=== PATIENT | male | born 1970 | race African-American/Black ===

== ENCOUNTER → 2020-04-28 13:18 | Outpatient (BNVA) | payer MEDICAID, SELFPAY | PROVIDERS: PCP Internal Medicine; Visit Provider Urology | DX: E29.1 Testicular hypofunction (principal); N39.41 Urge incontinence | CPT/HCPCS: 96372; 99212 ==

== ENCOUNTER → 2020-05-15 08:55 | Outpatient (BNVA) | payer MEDICAID, SELFPAY | PROVIDERS: PCP Internal Medicine; Referring Provider Internal Medicine; Visit Provider Urology | DX: E29.1 Testicular hypofunction (principal) | CPT/HCPCS: 99203 ==

== ENCOUNTER → 2020-05-30 09:50 | Outpatient (BNVA) | payer MEDICAID, SELFPAY | PROVIDERS: PCP Internal Medicine; Visit Provider Urology | DX: E29.1 Testicular hypofunction (principal) | CPT/HCPCS: 99212 ==

== ENCOUNTER 2020-06-01 09:43 | Outpatient (REF) | payer MEDICAID, SELFPAY ==
[2020-06-01 12:03] LABS: Blood Urea Nitrogen 9 mg/dL (9-16); Calcium 9.3 mg/dL (8.4-10.2); Estimated Glomerular Filt Rate > 60; Glucose Random 160 mg/dL (60-115)
[2020-06-01 12:20] LABS: Anion Gap 11 (12-20); Carbon Dioxide 31 mmol/L (22-29); Chloride 99 mmol/L (96-108); Potassium 5.4 mmol/l (3.3-5.1); Sodium 136 mmol/L (135-145)
== END 2020-06-01 09:44 | disposition home or self-care (01) ==
LOC: HO.LAB 09:43
PROVIDERS: Visit Provider Internal Medicine
DX: I10 Essential (primary) hypertension (principal)
CPT/HCPCS: 80048

== ENCOUNTER 2020-06-09 14:19 | Outpatient (REF) | payer MEDICAID, SELFPAY | END 2020-06-09 14:20 | disposition home or self-care (01) | LOC: HO.LAB 14:19 | PROVIDERS: Visit Provider Internal Medicine | DX: Z20.828 Contact with and (suspected) exposure to other viral communicable diseases (principal) | CPT/HCPCS: C9803; U0003 ==

== ENCOUNTER → 2020-06-13 09:28 | Outpatient (BNVA) | payer MEDICAID, SELFPAY | PROVIDERS: PCP Internal Medicine; Referring Provider Internal Medicine; Visit Provider Urology | DX: Z76.89 Persons encountering health services in other specified circumstances (principal) | CPT/HCPCS: 99212 ==

== ENCOUNTER → 2020-06-27 15:03 | Outpatient (BNVA) | payer MEDICAID, SELFPAY | PROVIDERS: PCP Internal Medicine; Referring Provider Internal Medicine; Visit Provider Urology | DX: E29.1 Testicular hypofunction (principal) | CPT/HCPCS: 20552; 96372; 99212 ==

== ENCOUNTER → 2020-07-11 13:26 | Outpatient (BNVA) | payer MEDICAID, SELFPAY | PROVIDERS: PCP Internal Medicine; Visit Provider Urology | DX: E29.1 Testicular hypofunction (principal) | CPT/HCPCS: 96372; 99212 ==

== ENCOUNTER 2020-07-18 09:50 | Outpatient (REF) | payer MEDICAID, SELFPAY ==
[2020-07-23 21:58] LABS: Testosterone, Total 934 ng/dL (250-1100)
== END 2020-07-18 09:51 | disposition home or self-care (01) ==
LOC: HO.LAB 09:50
PROVIDERS: PCP Internal Medicine; Visit Provider Urology
DX: E29.1 Testicular hypofunction (principal); R68.82 Decreased libido
CPT/HCPCS: 84403

== ENCOUNTER → 2020-07-19 12:05 | Outpatient (BNVA) | payer MEDICAID, SELFPAY | PROVIDERS: PCP Internal Medicine; Visit Provider Internal Medicine | DX: I25.10 Atherosclerotic heart disease of native coronary artery without angina pectoris (principal); I10 Essential (primary) hypertension; E78.5 Hyperlipidemia, unspecified; R94.5 Abnormal results of liver function studies; E11.9 Type 2 diabetes mellitus without complications | CPT/HCPCS: 93005; 99212 ==

== ENCOUNTER → 2020-07-26 12:22 | Outpatient (BNVA) | payer MEDICAID, SELFPAY | PROVIDERS: PCP Internal Medicine; Visit Provider Urology | DX: E29.1 Testicular hypofunction (principal); R68.82 Decreased libido | CPT/HCPCS: 96372; 99212 ==

== ENCOUNTER 2020-08-04 08:41 | Outpatient (REF) | payer MEDICAID, SELFPAY ==
[2020-08-07 13:03] LABS: Alpha Fetoprotein 12.8 ng/mL (<6.1)
== END 2020-08-04 08:42 | disposition home or self-care (01) ==
LOC: HO.LAB 08:41
PROVIDERS: PCP Internal Medicine; Visit Provider Nurse Practitioner
DX: K75.81 Nonalcoholic steatohepatitis (NASH) (principal)
CPT/HCPCS: 36415; 82105

== ENCOUNTER → 2020-08-10 10:16 | Outpatient (BNVA) | payer MEDICAID, SELFPAY | PROVIDERS: PCP Internal Medicine; Visit Provider Urology | DX: R68.82 Decreased libido (principal); E29.1 Testicular hypofunction; I10 Essential (primary) hypertension; Z87.891 Personal history of nicotine dependence | CPT/HCPCS: 96372; 99212 ==

== ENCOUNTER → 2020-08-25 09:54 | Outpatient (BNVA) | payer MEDICAID, SELFPAY | PROVIDERS: PCP Internal Medicine; Visit Provider Urology | DX: E29.1 Testicular hypofunction (principal); R68.82 Decreased libido | CPT/HCPCS: 96372; 99212 ==

== ENCOUNTER 2020-08-28 12:39 | Outpatient (REF) | payer MEDICAID, SELFPAY ==
[2020-08-28 14:55] LABS: Alanine Aminotransferase 31 U/L (0-40); Albumin Level 4.6 g/dL (3.5-5.0); Alkaline Phosphatase 73 U/L (39-117); Anion Gap 12 (12-20); Aspartate Amino Transferase 23 U/L (5-37); Bilirubin Total 0.9 mg/dL (0.0-1.0); Blood Urea Nitrogen 9 mg/dL (9-16); Calcium 9.5 mg/dL (8.4-10.2); Carbon Dioxide 31 mmol/L (22-29); Chloride 99 mmol/L (96-108); Estimated Glomerular Filt Rate > 60; Glucose Random 108 mg/dL (60-115); Potassium 4.5 mmol/L (3.3-5.1); Sodium 137 mmol/L (135-145); Total Protein 7.1 g/dL (6.5-8.0)
[2020-08-29 12:17] LABS: Alpha Fetoprotein 13.9 ng/mL (<6.1)
== END 2020-08-28 12:40 | disposition home or self-care (01) ==
LOC: HO.LAB 12:39
PROVIDERS: PCP Internal Medicine; Visit Provider Nurse Practitioner
DX: K75.81 Nonalcoholic steatohepatitis (NASH) (principal); K21.00 Gastro-esophageal reflux disease with esophagitis, without bleeding; K58.0 Irritable bowel syndrome with diarrhea; K64.0 First degree hemorrhoids; E11.8 Type 2 diabetes mellitus with unspecified complications; R77.2 Abnormality of alphafetoprotein; Z86.010 Personal history of colon polyps
CPT/HCPCS: 36415; 80053; 82105

== ENCOUNTER → 2020-09-08 08:33 | Outpatient (BNVA) | payer MEDICAID, SELFPAY | PROVIDERS: PCP Internal Medicine; Visit Provider Urology | DX: E29.1 Testicular hypofunction (principal) | CPT/HCPCS: 96372; 99212 ==

== ENCOUNTER 2020-09-20 08:23 | Outpatient (REF) | payer MEDICAID, SELFPAY ==
--- NOTE | ~2020-09-20 | US_ITS ---
EXAMINATION: US ABDOMEN COMPLETE CLINICAL INFORMATION: Nonalcoholic steatohepatitis. COMPARISON: Ultrasound abdomen complete 03/06/2020 and 08/02/2019. MRI abdomen 02/18/2019. CT abdomen and pelvis 03/28/2018. TECHNIQUE: Real-time imaging of the abdominal viscera. FINDINGS: PANCREAS: The head of the pancreas and partially visualized body of the pancreas is homogeneous in texture. Rest of the pancreas is not seen well. ABDOMINAL AORTA: The proximal, mid, and distal segments are normal in caliber. INFERIOR VENA CAVA: Visualized portions are normal. LIVER: The liver is normal in size. The liver contour is normal. There is increased liver echogenicity with focal fatty sparing. No focal hepatic lesion. There is no intrahepatic biliary duct dilatation seen. GALLBLADDER: Normal. The gallbladder is physiologically distended without evidence of stones, sludge, polyps, wall thickening, or pericholecystic fluid. COMMON BILE DUCT: Normal in caliber measuring 0.4 cm in diameter. RIGHT KIDNEY: Normal. No hydronephrosis. No renal calculi or focal parenchymal lesions. The kidney measures 11.3 cm in maximum dimension. LEFT KIDNEY: Normal. No hydronephrosis. No renal calculi or focal parenchymal lesions. The kidney measures 10.3 cm in maximum dimension. SPLEEN: Normal. The spleen measures 11.0 cm in maximum dimension. FREE FLUID: None. US/US abdomen complete IMPRESSION: Diffuse hepatic steatosis with focal fatty sparing. No focal lesion seen. Rest of the ultrasound abdomen is unremarkable.
== END 2020-09-20 08:24 | disposition home or self-care (01) ==
LOC: HO.US 08:23
PROVIDERS: PCP Internal Medicine; Visit Provider Nurse Practitioner
DX: K75.81 Nonalcoholic steatohepatitis (NASH) (principal)
CPT/HCPCS: 76700

== ENCOUNTER → 2020-09-22 08:33 | Outpatient (BNVA) | payer MEDICAID, SELFPAY | PROVIDERS: PCP Internal Medicine; Visit Provider Urology | DX: E29.1 Testicular hypofunction (principal) | CPT/HCPCS: 96372; 99212 ==

== ENCOUNTER → 2020-10-06 08:26 | Outpatient (BNVA) | payer MEDICAID, SELFPAY | PROVIDERS: PCP Internal Medicine; Visit Provider Urology | DX: E29.1 Testicular hypofunction (principal) | CPT/HCPCS: 96372; 99212 ==

== ENCOUNTER → 2020-10-24 08:17 | Outpatient (BNVA) | payer MEDICAID, SELFPAY | PROVIDERS: PCP Internal Medicine; Visit Provider Urology | DX: E29.1 Testicular hypofunction (principal) | CPT/HCPCS: 96372; 99212 ==

== ENCOUNTER → 2020-11-07 08:33 | Outpatient (BNVA) | payer MEDICAID, SELFPAY | PROVIDERS: PCP Internal Medicine; Visit Provider Urology | DX: E29.1 Testicular hypofunction (principal) | CPT/HCPCS: 96372; 99212 ==

== ENCOUNTER → 2021-02-21 12:41 | Outpatient (BNVA) | payer MEDICAID, SELFPAY | PROVIDERS: PCP Internal Medicine; Referring Provider Internal Medicine; Visit Provider Internal Medicine | DX: I25.10 Atherosclerotic heart disease of native coronary artery without angina pectoris (principal); I10 Essential (primary) hypertension; E78.5 Hyperlipidemia, unspecified; E11.8 Type 2 diabetes mellitus with unspecified complications; R94.5 Abnormal results of liver function studies | CPT/HCPCS: 99212 ==

== ENCOUNTER 2021-02-26 12:20 | Outpatient (REF) | payer MEDICAID, SELFPAY ==
[2021-02-26 14:20] LABS: MANUAL DIFF FLAG NO
[2021-02-26 14:22] LABS: Basophils Percent Auto 0.4 % (0-2); Eosinophils Absolute Auto 0.2 X10*3/uL (0.0-0.4); Eosinophils Percent Auto 2.3 % (0-4); Hematocrit 47.8 % (42-52); Hemoglobin 16.3 g/dl (14.0-18.0); Imm Gran Abs Auto 0.04 X10*3/uL (0.00-0.03); Imm Gran Pct Auto 0.6 % (0.0-0.4); Lymphocytes Absolute Auto 1.6 X10*3/uL (1.2-4.9); Lymphocytes Percent Auto 23.2 % (20-40); Mean Corpuscular HGB Conc 34.1 g/dl (31.0-36.0); Mean Corpuscular Hemoglobin 30.1 pg (27.0-33.0); Mean Corpuscular Volume 88.4 fL (80-98); Mean Platelet Volume 10.8 fL (9.4-12.4); Monocytes Absolute Auto 0.7 X10*3/uL (0.1-1.2); Monocytes Percent Auto 9.2 % (2-11); Neutrophils Absolute Auto 4.5 X10*3/uL (2.0-8.3); Neutrophils Percent Auto 64.3 % (45-73); Platelet Count 268 X10*3/uL (160-400); Red Blood Count 5.41 X10*6/uL (4.60-5.80); Red Cell Distribution Width 12.9 % (11.0-16.0)
[2021-02-26 14:51] LABS: Alanine Aminotransferase 39 U/L (0-40); Albumin Level 4.5 g/dL (3.5-5.0); Alkaline Phosphatase 77 U/L (39-117); Anion Gap 10 (12-20); Aspartate Amino Transferase 19 U/L (5-37); Bilirubin Total 0.8 mg/dL (0.0-1.0); Blood Urea Nitrogen 9 mg/dL (9-16); Calcium 10.3 mg/dL (8.4-10.2); Carbon Dioxide 33 mmol/L (22-29); Chloride 99 mmol/L (96-108); Estimated Glomerular Filt Rate > 60; Glucose Random 266 mg/dL (60-115); Potassium 5.3 mmol/L (3.3-5.1); Sodium 137 mmol/L (135-145)
[2021-02-28 10:47] LABS: Alpha Fetoprotein 12.9 ng/mL (<6.1)
== END 2021-02-26 12:21 | disposition home or self-care (01) ==
LOC: HO.LAB 12:20
PROVIDERS: PCP Internal Medicine; Referring Provider Internal Medicine; Visit Provider Nurse Practitioner
DX: D21.6 Benign neoplasm of connective and other soft tissue of trunk, unspecified (principal); R77.2 Abnormality of alphafetoprotein; K64.9 Unspecified hemorrhoids; K58.0 Irritable bowel syndrome with diarrhea; K75.81 Nonalcoholic steatohepatitis (NASH); K21.9 Gastro-esophageal reflux disease without esophagitis; K22.4 Dyskinesia of esophagus
CPT/HCPCS: 36415; 80053; 82105; 85025; 99212

== ENCOUNTER → 2021-03-15 07:25 | Outpatient (REF) | payer MEDICAID, SELFPAY ==
--- NOTE | 2021-03-15 | ECG_ITS ---
Test Reason : QTC CHECK Blood Pressure : / mmHG Vent. Rate : 063 BPM Atrial Rate : 063 BPM P-R Int : 148 ms QRS Dur : 096 ms QT Int : 412 ms P-R-T Axes : 033 -12 013 degrees QTc Int : 421 ms Normal sinus rhythm Moderate voltage criteria for LVH, may be normal variant Borderline ECG When compared with ECG of 04-DEC-2017 06:56, No significant change was found Referred By: Gloria Combs Electronically Signed By:LUISITO HERNANDEZ
[2021-03-15 09:02] LABS: MANUAL DIFF FLAG NO
[2021-03-15 09:05] LABS: Basophils Percent Auto 0.3 % (0-2); Eosinophils Absolute Auto 0.2 X10*3/uL (0.0-0.4); Eosinophils Percent Auto 2.2 % (0-4); Hematocrit 48.2 % (42-52); Hemoglobin 16.2 g/dl (14.0-18.0); Imm Gran Abs Auto 0.04 X10*3/uL (0.00-0.03); Imm Gran Pct Auto 0.6 % (0.0-0.4); Lymphocytes Absolute Auto 1.8 X10*3/uL (1.2-4.9); Lymphocytes Percent Auto 26.1 % (20-40); Mean Corpuscular HGB Conc 33.6 g/dl (31.0-36.0); Mean Corpuscular Hemoglobin 29.9 pg (27.0-33.0); Mean Corpuscular Volume 88.9 fL (80-98); Mean Platelet Volume 11.1 fL (9.4-12.4); Monocytes Absolute Auto 0.7 X10*3/uL (0.1-1.2); Monocytes Percent Auto 9.9 % (2-11); Neutrophils Absolute Auto 4.2 X10*3/uL (2.0-8.3); Neutrophils Percent Auto 60.9 % (45-73); Platelet Count 244 X10*3/uL (160-400); Red Blood Count 5.42 X10*6/uL (4.60-5.80)
[2021-03-15 09:23] LABS: Estimated Average Glucose 166 mg/dL; Hemoglobin A1c % 7.4 %
[2021-03-15 09:34] LABS: Alanine Aminotransferase 38 U/L (0-40); Albumin Level 4.3 g/dL (3.5-5.0); Alkaline Phosphatase 86 U/L (39-117); Anion Gap 11 (12-20); Aspartate Amino Transferase 19 U/L (5-37); Bilirubin Total 0.6 mg/dL (0.0-1.0); Blood Urea Nitrogen 10 mg/dL (9-16); Calcium 9.6 mg/dL (8.4-10.2); Carbon Dioxide 31 mmol/L (22-29); Chloride 100 mmol/L (96-108); Cholesterol 89 mg/dL; Estimated Glomerular Filt Rate > 60; Glucose Random 173 mg/dL (60-115); HDL Cholesterol 36 mg/dL; LDL Cholesterol Calculated 37 mg/dl; Potassium 4.4 mmol/L (3.3-5.1); Sodium 138 mmol/L (135-145); Total Protein 6.7 g/dL (6.5-8.0); Triglycerides 80 mg/dL
[2021-03-15 09:50] LABS: Thyroid Stimulating Hormone 3.33 uIU/mL (0.32-4.0)
== END ==
LOC: HO.CARD 07:25
PROVIDERS: PCP Internal Medicine; Visit Provider Psychiatry & Neurology Psychiatry
DX: Z79.899 Other long term (current) drug therapy (principal)
CPT/HCPCS: 36415; 80053; 80061; 83036; 84443; 85025; 93005

== ENCOUNTER 2021-04-27 07:35 | Outpatient (REF) | payer MEDICAID, SELFPAY ==
[2021-04-27 08:23] LABS: Hematocrit 47.5 % (42-52); Hemoglobin 16.5 g/dl (14.0-18.0); Mean Corpuscular HGB Conc 34.7 g/dl (31.0-36.0); Mean Corpuscular Hemoglobin 30.1 pg (27.0-33.0); Mean Corpuscular Volume 86.7 fL (80-98); Mean Platelet Volume 10.7 fL (9.4-12.4); Platelet Count 270 X10*3/uL (160-400); Red Blood Count 5.48 X10*6/uL (4.60-5.80); Red Cell Distribution Width 12.5 % (11.0-16.0); White Blood Count 7.9 X10*3/uL (4.8-10.8)
[2021-04-27 09:18] LABS: Prostate Specific Antigen 0.74 ng/mL (<0.05-4.0)
[2021-05-02 11:51] LABS: Testosterone, Total 604 ng/dL (250-1100)
== END 2021-04-27 07:36 | disposition home or self-care (01) ==
LOC: HO.LAB 07:35
PROVIDERS: PCP Internal Medicine; Visit Provider Urology
DX: Z12.5 Encounter for screening for malignant neoplasm of prostate (principal); N40.1 Benign prostatic hyperplasia with lower urinary tract symptoms; N13.8 Other obstructive and reflux uropathy; E29.1 Testicular hypofunction
CPT/HCPCS: 36415; 84153; 84403; 85027

== ENCOUNTER 2021-05-09 07:12 | Outpatient (REF) | payer MEDICAID, SELFPAY ==
--- NOTE | ~2021-05-09 | US_ITS ---
EXAMINATION: US ABDOMEN COMPLETE CLINICAL INFORMATION: Abnormality of alpha-fetoprotein. COMPARISON: Ultrasound abdomen 09/20/2020. TECHNIQUE: Real-time imaging of the abdominal viscera. FINDINGS: PANCREAS: The pancreas is obscured by overlying gas. ABDOMINAL AORTA: The proximal, mid, and distal segments are normal in caliber. INFERIOR VENA CAVA: Visualized portions are normal. LIVER: The liver is normal in size. The liver contour is normal. The liver is diffusely increased in echogenicity and heterogeneous. No focal hepatic lesion. There is no intrahepatic biliary duct dilatation seen. GALLBLADDER: Normal. The gallbladder is physiologically distended without evidence of stones, sludge, polyps, wall thickening or pericholecystic fluid. COMMON BILE DUCT: Normal in caliber measuring 0.41 cm in diameter. RIGHT KIDNEY: Normal. No hydronephrosis. No renal calculi or focal parenchymal lesions. The kidney measures 11.4 cm in maximum dimension. LEFT KIDNEY: Normal. No hydronephrosis. No renal calculi or focal parenchymal lesions. The kidney measures 11.7 cm in maximum dimension. SPLEEN: Normal. The spleen measures 10.1 cm in maximum dimension. FREE FLUID: None. US/US abdomen complete IMPRESSION: Diffusely increased echogenic heterogeneous liver. No focal lesion. The rest of the abdominal ultrasound is unremarkable.
== END 2021-05-09 07:13 | disposition home or self-care (01) ==
LOC: HO.US 07:12
PROVIDERS: PCP Internal Medicine; Visit Provider Nurse Practitioner
DX: R77.2 Abnormality of alphafetoprotein (principal); D12.6 Benign neoplasm of colon, unspecified; K75.81 Nonalcoholic steatohepatitis (NASH)
CPT/HCPCS: 76700

== ENCOUNTER → 2021-05-11 08:38 | Outpatient (BNVA) | payer MEDICAID, SELFPAY | PROVIDERS: PCP Internal Medicine; Visit Provider Urology ==

== ENCOUNTER 2021-05-22 09:08 | Day surgery (SDC) | payer MEDICAID, SELFPAY ==
[2021-05-16 11:01] VITALS: BMI 28.4
--- NOTE | 2021-05-21 13:33 | HO.ANESPROP2 ---
Documented by User: Morelia Xiao NP 05/21/21 13:38 HPI - Anesthesia Eval Consult details Narrative: 50yo M for Colonoscopy Plavix for CAD Per routine cardiac OV 02/2021: History of cardiac catheterization/stenting of distal left main into proximal LAD from 2017; proximal circumflex and ostial LAD stents 2017. Last stress perfusion imaging study from 2018 without any ischemia or infarction.? Study again repeated in 2019 without any new findings.? Continue medical therapy for stable CAD.? [facility] Active Problems Active Problems: All Active Problems (Updated 05/16/21 @ 09:50 by Yenifer Judd RN) Hypogonadism (Acute) Urge incontinence (Acute) GERD (gastroesophageal reflux disease) (Acute) COLON (nonalcoholic steatohepatitis) (Acute) Irritable bowel syndrome with diarrhea (Acute) Hemorrhoids (Acute) Tubular adenoma of colon (Acute) Esophageal dysmotility (Acute) Elevated AFP (Acute) Decreased libido (Acute) Type 2 diabetes mellitus with unspecified complications (Acute) Abnormal LFTs (Acute) Other and unspecified hyperlipidemia (Acute) Essential hypertension (Acute) Atherosclerotic cardiovascular disease (Acute) Hypogonadism in male (Acute) Past Medical History Medical History (Updated 05/16/21 @ 09:50 by Yenifer Judd RN) Abnormal LFTs Allergic rhinitis Anxiety Atherosclerotic cardiovascular disease BPH (benign prostatic hyperplasia) Decreased libido Elevated AFP Essential hypertension Hypogonadism in male Hypothyroid IBS (irritable bowel syndrome) COLON (nonalcoholic steatohepatitis) On beta catherine at home Other and unspecified hyperlipidemia Type 2 diabetes mellitus with unspecified complications Family History Family History Father Cardiac disease Mother Cardiac disease Surgical History Surgical History (Updated 05/16/21 @ 09:51 by Yenifer Judd RN) History of cardiac cath History of cardiac cath History of cardiac cath History of esophagogastroduodenoscopy (EGD) Hx of colonoscopy Social History Social History (Updated 05/11/21 @ 08:44 by Susanne Lei CMA) Are you a primary chronic care nurse to a significant other at home: No Do you presently have visiting nurse or other home services: No Alcohol intake: former Patient Tobacco Use Status: Former Tobacco user Quit Date: 3 yrs ago Tobacco use type: Cigarette Use of substances other than those prescribed or required for medical reasons: No Have you been hit, kicked, punched, or otherwise hurt by someone within the past year? If so, by whom?: No Are you DNR?: No Advance Directives: No Advance Directives Information Provided: No Advance Directives on File: No Recently lost weight without trying: No Eating poorly because of decreased appetite: No Nutrition Risks: No Nutritional Risk Meds Allergies Allergy/AdvReac Type Severity Reaction Status Date / Time No Known Allergies Allergy Verified 05/15/21 15:44 [No Known Allergies*] Home Medications Medication Instructions Recorded Confirmed Last Taken Type aspirin 81 mg tablet,delayed 81 mg PO DAILY 07/19/20 05/16/21 05/21/21 History release (Adult Low Dose Aspirin) cholecalciferol (vitamin D3) 25 25 mcg PO DAILY 07/19/20 05/16/21 Unknown History mcg (1,000 unit) capsule clopidogrel 75 mg tablet 75 mg PO DAILY 07/19/20 05/16/21 05/16/21 History cyclobenzaprine 5 mg tablet 5 mg PO TID PRN 07/19/20 05/16/21 Unknown History gabapentin 300 mg capsule 300 mg PO TID 07/19/20 05/16/21 Unknown History glipizide 2.5 mg tablet, extended 2.5 mg PO DAILY 07/19/20 05/16/21 Unknown History release 24 hr ibuprofen 600 mg tablet 600 mg PO Q6H PRN 07/19/20 05/16/21 Unknown History levothyroxine 25 mcg capsule 25 mcg PO DAILY 07/19/20 05/16/21 05/22/21 History metformin 1,000 mg tablet 1,000 mg PO BID 07/19/20 05/16/21 Unknown History metoprolol succinate 50 mg 50 mg PO DAILY 07/19/20 05/16/21 05/22/21 History tablet,extended release 24 hr nitroglycerin 0.4 mg sublingual 0.4 mg SUBLINGUAL Q5M PRN 07/19/20 05/16/21 Unknown History tablet risperidone 2 mg tablet 2 mg PO DAILY 07/19/20 05/16/21 Unknown History risperidone 4 mg tablet 4 mg PO BEDTIME 07/19/20 05/16/21 Unknown History sertraline 100 mg tablet 100 mg PO DAILY 07/19/20 05/16/21 05/22/21 History lorazepam 2 mg tablet 2 mg PO DAILY PRN 05/11/21 05/16/21 Unknown History hydroxyzine HCl 50 mg tablet 1 tab PO BEDTIME PRN 05/16/21 05/16/21 Unknown History sertraline 50 mg tablet 1 tab PO 1200 05/16/21 05/16/21 Unknown History Exam Exam Date and Time: May 21, 2021 1333 Height,Weight and Vital Signs: Height 5 ft 6 in Weight 79.832 kg Pertinent Lab Results Pertinent Lab Results: Laboratory Tests 03/15/21 04/27/21 07:32 07:47 WBC 7.9 Hgb 16.5 Hct 47.5 Plt Count 270 Sodium 138 Potassium 4.4 Chloride 100 Carbon Dioxide 31 H BUN 10 Creatinine 1.04 Narrative Narrative: EKG 02/2021 Vent. Rate : 063 BPM ? ? Atrial Rate : 063 BPM ?? P-R Int : 148 ms? QRS Dur : 096 ms ? ? QT Int : 412 ms ? ? ? P-R-T Axes : 033 -12 013 degrees ?? QTc Int : 421 ms ? Normal sinus rhythm Moderate voltage criteria for LVH, may be normal variant Borderline ECG When compared with ECG of 04-DEC-2017 06:56, No significant change was found Assessment and Plan Assessment Anesthesia Assessment: Chart Reviewed Documented by User: Sylvia Brown MD 05/22/21 10:56 [facility] Past Medical History Medical History (Updated 05/16/21 @ 09:50 by Yenifer Judd, VANE) Abnormal LFTs Allergic rhinitis Anxiety Atherosclerotic cardiovascular disease BPH (benign prostatic hyperplasia) Decreased libido Elevated AFP Essential hypertension Hypogonadism in male Hypothyroid IBS (irritable bowel syndrome) COLON (nonalcoholic steatohepatitis) On beta catherine at home Other and unspecified hyperlipidemia Type 2 diabetes mellitus with unspecified complications Family History Family History Father Cardiac disease Mother Cardiac disease Surgical History Surgical History (Updated 05/16/21 @ 09:51 by Yenifer Judd RN) History of cardiac cath History of cardiac cath History of cardiac cath History of esophagogastroduodenoscopy (EGD) Hx of colonoscopy Social History Social History (Updated 05/11/21 @ 08:44 by Susanne Lei CMA) Are you a primary chronic care nurse to a significant other at home: No Do you presently have visiting nurse or other home services: No Alcohol intake: former Patient Tobacco Use Status: Former Tobacco user Quit Date: 3 yrs ago Tobacco use type: Cigarette Use of substances other than those prescribed or required for medical reasons: No Have you been hit, kicked, punched, or otherwise hurt by someone within the past year? If so, by whom?: No Are you DNR?: No Advance Directives: No Advance Directives Information Provided: No Advance Directives on File: No Recently lost weight without trying: No Eating poorly because of decreased appetite: No Nutrition Risks: No Nutritional Risk Meds Allergies Allergy/AdvReac Type Severity Reaction Status Date / Time No Known Allergies Allergy Verified 05/15/21 15:44 [No Known Allergies*] Home Medications Medication Instructions Recorded Confirmed Last Taken Type aspirin 81 mg tablet,delayed 81 mg PO DAILY 07/19/20 05/16/21 05/21/21 History release (Adult Low Dose Aspirin) cholecalciferol (vitamin D3) 25 25 mcg PO DAILY 07/19/20 05/16/21 Unknown History mcg (1,000 unit) capsule clopidogrel 75 mg tablet 75 mg PO DAILY 07/19/20 05/16/21 05/16/21 History cyclobenzaprine 5 mg tablet 5 mg PO TID PRN 07/19/20 05/16/21 Unknown History gabapentin 300 mg capsule 300 mg PO TID 07/19/20 05/16/21 Unknown History glipizide 2.5 mg tablet, extended 2.5 mg PO DAILY 07/19/20 05/16/21 Unknown History release 24 hr ibuprofen 600 mg tablet 600 mg PO Q6H PRN 07/19/20 05/16/21 Unknown History levothyroxine 25 mcg capsule 25 mcg PO DAILY 07/19/20 05/16/21 05/22/21 History metformin 1,000 mg tablet 1,000 mg PO BID 07/19/20 05/16/21 Unknown History metoprolol succinate 50 mg 50 mg PO DAILY 07/19/20 05/16/21 05/22/21 History tablet,extended release 24 hr nitroglycerin 0.4 mg sublingual 0.4 mg SUBLINGUAL Q5M PRN 07/19/20 05/16/21 Unknown History tablet risperidone 2 mg tablet 2 mg PO DAILY 07/19/20 05/16/21 Unknown History risperidone 4 mg tablet 4 mg PO BEDTIME 07/19/20 05/16/21 Unknown History sertraline 100 mg tablet 100 mg PO DAILY 07/19/20 05/16/21 05/22/21 History lorazepam 2 mg tablet 2 mg PO DAILY PRN 05/11/21 05/16/21 Unknown History hydroxyzine HCl 50 mg tablet 1 tab PO BEDTIME PRN 05/16/21 05/16/21 Unknown History sertraline 50 mg tablet 1 tab PO 1200 05/16/21 05/16/21 Unknown History Exam Airway Mallampati Class: II TM Dist: >3cm Neck ROM: Full
[2021-05-22 10:30] VITALS: BP 133/82; PULSE 56; RESP 16; TEMP 36.8; O2SAT 99
[2021-05-22 10:47] LABS: Glucose, Whole Blood 157 mg/dL (60-115)
[2021-05-22] MEDS: Lactated Ringers 1,000 ML 100 ML IVCONT (10:51)
--- NOTE | 2021-05-22 10:56 | MHC.SHP ---
Pre-Procedural Eval Section A Date of Service: 05/22/21 The patient is an INPATIENT: No The History & Physical has been completed within 30 days and I have reviewed it.: No Section B Chief Complaint: IBS w/ Diarrhea Relevant Family History (Specify if Yes): No Relevant Social History: Tobacco Use (former smoker) Present Medications: see Short Stay Collaborative assessment Medical History: Significant History (Abnormal LFTs Atherosclerotic cardiovascular disease Decreased libido Elevated AFP Essential hypertension Hypogonadism in male Other and unspecified hyperlipidemia Type 2 diabetes mellitus with unspecified complications) History of Previous Operations: Relevant previous surgery/procedure and date(s) (History of cardiac cath) Allergies: Allergies Allergy/AdvReac Type Severity Reaction Status Date / Time No Known Allergies Allergy Verified 05/15/21 15:44 [No Known Allergies*] Review of Systems Sugical H&P ROS: Negative: Constitution, Cardiovascular, Respiratory and Gastrointestinal Exam Surgical H&P Exam: Normal: Heart, Normal: Lungs, Normal: Extremities and Normal: Abdomen Plan Diagnosis/Plan: Unchanged I have reviewed the history and physical and performed a pertinent physical examination on my patient. No changes have occurred unless specified.
--- NOTE | 2021-05-22 13:13 | PM.OP ---
Brief Operative Note Date of Service: 05/22/21 Pre-op diagnosis: Colon cancer screening, history of colon polyps Post-op diagnosis: other (Colon polyps, diverticulosis, hemorrhoids, prominent rectal folds) Procedure: COLONOSCOPY TILL CECUM WITH BIOPSIES Consent: Indications for the procedure and potential complications of bleeding, perforation, reaction to medications and missed diagnosis were discussed with the patient and informed consent was obtained. Instrument: Olympus PCF H 190 L variable stiffness pediatric colonoscope Monitoring: Vital signs and clinical assessment, intermittent blood pressure monitoring, continuous EKG monitoring, Pulse oximetry and Carbon Dioxide monitoring were done throughout the procedure. Colon withdrawl time was 23 minutes. Procedure: The patient was placed in the left lateral decubitis position and pre-procedure medications were administered. After a digital rectal examination of the ano-rectum, the video colonoscope was inserted into the rectum and advanced through the colon to the cecum. The colonoscope was slowly withdrawn in a retrograde panoramic fashion and the colon mucosa was carefully examined including a retroflexed view of the rectum. Findings and interventions are described below. Procedure Difficulty: Without difficulty Findings: Terminal Ileum: Not evaluated Cecum: A 3-4 mm sessile polyp removed with a cold bx. Ascending Colon: Normal Transverse Colon: Normal Descending Colon: Normal Sigmoid Colon: Moderate diverticulosis Rectum: Erythematous and edematous rectal folds at 5-10 cms - multiple biopsies were obtained Ano-rectum: Moderate internal hemorrhoids Colon preparation: Good after copious irrigation Impression and Post Procedure Diagnosis: Colonoscopy Findings: One small polyps removed Moderate diverticulosis seen in the sigmoid colon Erythematous and edematous rectal folds at 5-10 cms - multiple biopsies were obtained - ? rectal prolapse/solitary rectal ulcer syndrome. Moderate hemorrhoids on retroflexed exam. Plan: Await pathology results Patient has an appointment on 06/07/21 in the [facility] with Mary Kay Avalos NP . Repeat Colonoscopy interval based on path results - in 3-5 years if polyps are adenomatous and 10 years if polyps are hyperplastic. Above findings were reviewed with the patient and colon polyps and diverticulosis handouts were given in the discharge area Surgeon: Francesca Leyva MD Anesthesia: MAC (Izzy Barbosa CRNA) Was an Business Development Recruiter used for this Procedure?: Yes Business Development Recruiter: Odalis Gomez Estimated blood loss (mL): 0 Pathology: other (A. cecal polyp B. rectal fold) Condition: stable Disposition: PACU
[2021-05-22 13:14] VITALS: BP 94/61; PULSE 62; RESP 16; TEMP 36.1; O2SAT 100
--- NOTE | 2021-05-22 13:16 | P.OP_ITS ---
Operative Note Operative Note Date of Service: 05/22/21 Narrative: Pre-op diagnosis:?Colon cancer screening, history of colon polyps Post-op diagnosis:?other (Colon polyps, diverticulosis, hemorrhoids, prominent rectal folds) Procedure:? COLONOSCOPY TILL CECUM WITH BIOPSIES Consent: Indications for the procedure and potential complications of bleeding, perforation, reaction to medications and missed diagnosis were discussed with the patient and informed consent was obtained. Instrument: Olympus PCF H 190 L variable stiffness pediatric colonoscope Monitoring: Vital signs and clinical assessment, intermittent blood pressure monitoring, continuous EKG monitoring, Pulse oximetry and Carbon Dioxide monitoring were done throughout the procedure. Colon withdrawl time was 23 minutes. Procedure: The patient was placed in the left lateral decubitis position and pre-procedure medications were administered. After a digital rectal examination of the ano-rectum, the video colonoscope was inserted into the rectum and advanced through the colon to the cecum. The colonoscope was slowly withdrawn in a retrograde panoramic fashion and the colon mucosa was carefully examined including a retroflexed view of the rectum. Findings and interventions are described below. Procedure Difficulty: Without difficulty Findings: Terminal Ileum: Not evaluated Cecum:? A 3-4 mm sessile polyp removed with a cold bx. Ascending Colon:? Normal Transverse Colon:? Normal Descending Colon:? Normal Sigmoid Colon:? Moderate diverticulosis Rectum:? Erythematous and edematous rectal folds at 5-10 cms - multiple biopsies were obtained Ano-rectum:? Moderate internal hemorrhoids Colon preparation:? Good after copious irrigation Impression and Post Procedure Diagnosis: Colonoscopy Findings: One small polyps removed Moderate diverticulosis seen in the sigmoid colon ?Erythematous and edematous rectal folds at 5-10 cms - multiple biopsies were obtained - ? rectal prolapse/solitary rectal ulcer syndrome. Moderate hemorrhoids on retroflexed exam. Plan: Await pathology results Patient has an appointment on 06/07/21 in the GI Clinic with? Mary Kay Avalos NP? . Repeat Colonoscopy interval based on path results - in 3-5 years if polyps are adenomatous and 10 years if polyps are hyperplastic. Above findings were reviewed with the patient and colon polyps and diverticulosis handouts were given in the discharge area Surgeon:?Francesca Leyva MD Anesthesia:?MAC (Izzy Barbosa CRNA) Was an Cementing Bulk Material Operator used for this Procedure?:?Yes Cementing Bulk Material Operator:?Odalis Gomez Estimated blood loss (mL):?0 Pathology:?other (A. cecal polyp? B. rectal fold) Condition:?stable Disposition:?PACU
[2021-05-22 13:30] VITALS: BP 100/67; PULSE 58; RESP 16; O2SAT 96
[2021-05-22 13:41] VITALS: BP 110/77; PULSE 60; RESP 16; TEMP 36.1; O2SAT 98
== END 2021-05-22 14:11 | disposition home or self-care (01) ==
PROVIDERS: PCP Internal Medicine; Visit Provider Internal Medicine Gastroenterology
PROC: 0DJD8ZZ Inspection of Lower Intestinal Tract, Via Natural or Artificial Opening Endoscopic (ICD-10-PCS; CPT 45378; principal; 2021-05-22 11:50)
DX: Z12.11 Encounter for screening for malignant neoplasm of colon (principal); Z86.010 Personal history of colon polyps; D12.0 Benign neoplasm of cecum; K57.30 Diverticulosis of large intestine without perforation or abscess without bleeding; K64.8 Other hemorrhoids; K58.0 Irritable bowel syndrome with diarrhea; K21.9 Gastro-esophageal reflux disease without esophagitis; K22.4 Dyskinesia of esophagus; K75.81 Nonalcoholic steatohepatitis (NASH); R77.2 Abnormality of alphafetoprotein; I10 Essential (primary) hypertension; E11.9 Type 2 diabetes mellitus without complications; I25.10 Atherosclerotic heart disease of native coronary artery without angina pectoris; Z79.01 Long term (current) use of anticoagulants; Z79.84 Long term (current) use of oral hypoglycemic drugs; Z79.82 Long term (current) use of aspirin; Z87.891 Personal history of nicotine dependence; Z79.899 Other long term (current) drug therapy
CPT/HCPCS: 45380; 82947; 88305

== ENCOUNTER → 2021-06-22 08:35 | Outpatient (BNVA) | payer MEDICAID, SELFPAY | PROVIDERS: PCP Internal Medicine; Referring Provider Internal Medicine; Visit Provider Nurse Practitioner | DX: K21.9 Gastro-esophageal reflux disease without esophagitis (principal); K75.81 Nonalcoholic steatohepatitis (NASH); K58.0 Irritable bowel syndrome with diarrhea; K64.9 Unspecified hemorrhoids; K22.4 Dyskinesia of esophagus; D12.6 Benign neoplasm of colon, unspecified; R77.2 Abnormality of alphafetoprotein | CPT/HCPCS: 99212 ==

== ENCOUNTER → 2021-08-30 08:35 | Outpatient (BNVA) | payer MEDICAID, SELFPAY | PROVIDERS: PCP Internal Medicine; Referring Provider Internal Medicine; Visit Provider Internal Medicine | DX: I25.10 Atherosclerotic heart disease of native coronary artery without angina pectoris (principal); I10 Essential (primary) hypertension; E78.5 Hyperlipidemia, unspecified; E11.8 Type 2 diabetes mellitus with unspecified complications; R94.5 Abnormal results of liver function studies | CPT/HCPCS: 99212 ==

== ENCOUNTER 2021-10-29 08:01 | Outpatient (REF) | payer MEDICAID, SELFPAY ==
[2021-10-29 09:41] LABS: Hematocrit 53.4 % (42.0-52.0); Hemoglobin 17.7 g/dl (14.0-18.0); Mean Corpuscular HGB Conc 33.1 g/dl (31.0-36.0); Mean Corpuscular Hemoglobin 29.3 pg (27.0-33.0); Mean Corpuscular Volume 88.4 fL (80.0-98.0); Mean Platelet Volume 10.7 fL (9.4-12.4); Platelet Count 253 X10*3/uL (160-400); Red Blood Count 6.04 X10*6/uL (4.60-5.80); Red Cell Distribution Width 12.9 % (11.0-16.0); White Blood Count 8.3 X10*3/uL (4.8-10.8)
[2021-10-29 10:33] LABS: Prostate Specific Antigen 0.81 ng/mL (<0.05-4.0)
[2021-11-05 18:12] LABS: Testosterone, Free 256.4 pg/mL (35.0-155.0); Testosterone, Total 1171 ng/dL (250-1100)
== END 2021-10-29 08:02 | disposition home or self-care (01) ==
LOC: HO.LAB 08:01
PROVIDERS: PCP Internal Medicine; Visit Provider Urology
DX: Z12.5 Encounter for screening for malignant neoplasm of prostate (principal); E29.1 Testicular hypofunction
CPT/HCPCS: 36415; 84153; 84402; 84403; 85027

== ENCOUNTER → 2021-11-13 08:51 | Outpatient (BNVA) | payer MEDICAID, SELFPAY | PROVIDERS: PCP Internal Medicine; Visit Provider Urology | DX: E29.1 Testicular hypofunction (principal); N32.0 Bladder-neck obstruction | CPT/HCPCS: 99212 ==

== ENCOUNTER 2021-11-22 11:17 | Outpatient (REF) | payer MEDICAID, SELFPAY ==
--- NOTE | ~2021-11-22 | XR_ITS ---
EXAMINATION: XR LUMBOSACRAL SPINE WITH OBLIQUES CLINICAL INFORMATION: Low back pain with bilateral sciatic pain. COMPARISON: 04/09/2018 CT scan of the abdomen and pelvis. TECHNIQUE: AP, both oblique, and lateral views of the lumbar spine. Lateral view of the lumbosacral junction. FINDINGS: The vertebral bodies and posterior elements are normal. The disc spaces are preserved and the vertebral alignment is normal. The paraspinal soft tissues are normal. XR/XR lumbar spine 4V min IMPRESSION: Unremarkable lumbar spine.
== END 2021-11-22 11:18 | disposition home or self-care (01) ==
LOC: HO.XRAY 11:17
PROVIDERS: Absent Provider Internal Medicine; PCP Internal Medicine; Visit Provider Emergency Medicine
DX: M54.41 Lumbago with sciatica, right side (principal); M54.42 Lumbago with sciatica, left side
CPT/HCPCS: 72110

== ENCOUNTER 2021-12-21 08:33 | Outpatient (REF) | payer MEDICAID, SELFPAY ==
[2021-12-21 12:29] LABS: Blood Urea Nitrogen 12 mg/dL (9-16)
[2021-12-21 12:31] LABS: Alanine Aminotransferase 27 U/L (0-40); Albumin Level 4.4 g/dL (3.5-5.0); Alkaline Phosphatase 89 U/L (39-117); Anion Gap 12 (12-20); Aspartate Amino Transferase 21 U/L (5-37); Bilirubin Total 0.7 mg/dL (0.0-1.0); Calcium 9.9 mg/dL (8.4-10.2); Carbon Dioxide 28 mmol/L (22-29); Chloride 101 mmol/L (96-108); Estimated Glomerular Filt Rate > 60; Glucose Random 153 mg/dL (60-115); Potassium 4.4 mmol/L (3.3-5.1); Sodium 137 mmol/L (135-145); Total Protein 7.2 g/dL (6.5-8.0)
[2021-12-26 15:06] LABS: Alpha Fetoprotein 15.5 ng/mL (<6.1)
== END 2021-12-21 08:34 | disposition home or self-care (01) ==
LOC: HO.LAB 08:33
PROVIDERS: PCP Internal Medicine; Referring Provider Internal Medicine; Visit Provider Nurse Practitioner
DX: K75.81 Nonalcoholic steatohepatitis (NASH) (principal); K21.9 Gastro-esophageal reflux disease without esophagitis; K58.0 Irritable bowel syndrome with diarrhea; K22.4 Dyskinesia of esophagus; K64.9 Unspecified hemorrhoids
CPT/HCPCS: 36415; 80053; 82105; 99212

== ENCOUNTER 2022-01-25 06:18 | Outpatient (REF) | payer MEDICAID, SELFPAY ==
--- NOTE | ~2022-01-25 | US_ITS ---
EXAMINATION: US ABDOMEN LIMITED CLINICAL INFORMATION: Nonalcoholic steatohepatitis. COMPARISON: Ultrasound abdomen complete 05/09/2021 and 09/20/2020. MRI abdomen 02/18/2019. CT abdomen and pelvis 03/28/2018. TECHNIQUE: Real-time imaging of the right upper quadrant abdominal viscera. FINDINGS: PANCREAS: The pancreas is homogeneous echotexture and appears unremarkable. LIVER: The liver is normal in size. The liver contour is normal. The liver is diffusely echogenic and heterogeneous No focal hepatic lesion. There is no intrahepatic biliary duct dilatation seen. GALLBLADDER: Gallbladder wall thickness measures 0.24 cm. The gallbladder is physiologically distended without evidence of stones, sludge, polyps, wall thickening or pericholecystic fluid. COMMON BILE DUCT: Normal in caliber measuring 0.3 cm in diameter. RIGHT KIDNEY: Normal. No hydronephrosis. No renal calculi or focal parenchymal lesions. The kidney measures 11.2 cm in maximum dimension. FREE FLUID: None. US/US abdomen limited IMPRESSION: Heterogeneous echogenic liver without focal lesion. Rest of the abdominal ultrasound is unremarkable.
== END 2022-01-25 06:19 | disposition home or self-care (01) ==
LOC: HO.US 06:18
PROVIDERS: Visit Provider Nurse Practitioner
DX: K75.81 Nonalcoholic steatohepatitis (NASH) (principal)
CPT/HCPCS: 76705

== ENCOUNTER → 2022-02-08 09:28 | Outpatient (BNVA) | payer MEDICAID, SELFPAY | PROVIDERS: PCP Internal Medicine; Visit Provider Nurse Practitioner | DX: K75.81 Nonalcoholic steatohepatitis (NASH) (principal); K21.9 Gastro-esophageal reflux disease without esophagitis; K58.0 Irritable bowel syndrome with diarrhea | CPT/HCPCS: 99212 ==

== ENCOUNTER 2022-03-22 11:56 | Outpatient (REF) | payer MEDICAID, SELFPAY ==
[2022-03-22 13:23] LABS: Erythrocyte Sedimentation Rate 2 MM/HR (0-15)
[2022-03-22 13:25] LABS: Alanine Aminotransferase 28 U/L (0-40); Albumin Level 4.2 g/dL (3.5-5.0); Alkaline Phosphatase 87 U/L (39-117); Anion Gap 15 (12-20); Aspartate Amino Transferase 20 U/L (5-37); Bilirubin Total 1.1 mg/dL (0.0-1.0); Blood Urea Nitrogen 11 mg/dL (9-16); C Reactive Protein 0.08 mg/dL (< or = 0.50); Calcium 9.3 mg/dL (8.4-10.2); Carbon Dioxide 29 mmol/L (22-29); Chloride 98 mmol/L (96-108); Estimated Glomerular Filt Rate > 60; Glucose Random 147 mg/dL (60-115); Potassium 4.4 mmol/L (3.3-5.1); Rheumatoid Factor < 15.0 IU/mL (<15.0); Sodium 138 mmol/L (135-145); Total Protein 6.7 g/dL (6.5-8.0)
[2022-03-22 13:28] LABS: Appearance Urine Clear; Color Urine Yellow; Glucose Urine UA >=1000 mg/dL (Negative); Leukocyte Esterase Urine Negative (Negative); Nitrite Urine Negative (Negative); PH 6.5 (5.0-9.0); Urine Blood Negative (Negative); Urine Ketones Negative (Negative); Urine Protein Negative (Neg-Trace)
[2022-03-22 13:32] LABS: Bacteria Urine None Seen (None Seen); Hyaline Casts Urine 0-2 /LPF (0-2); RBC Urine 0-2 /HPF (0-2); Squamous Epithelial Cell Urine 0-2 /HPF (0-2); WBC Urine 0-5 /HPF (0-5)
[2022-03-26 17:26] LABS: Cyclic Citrullinated Peptide <16 UNITS
== END 2022-03-22 11:57 | disposition home or self-care (01) ==
LOC: HO.LAB 11:56
PROVIDERS: PCP Internal Medicine; Visit Provider Nurse Practitioner
DX: R10.9 Unspecified abdominal pain (principal); M25.50 Pain in unspecified joint; K58.0 Irritable bowel syndrome with diarrhea; K21.9 Gastro-esophageal reflux disease without esophagitis; K75.81 Nonalcoholic steatohepatitis (NASH)
CPT/HCPCS: 36415; 80053; 81001; 85652; 86140; 86200; 86431; 99212

== ENCOUNTER → 2022-03-27 13:20 | Outpatient (BNVA) | payer MEDICAID, SELFPAY | PROVIDERS: PCP Internal Medicine; Referring Provider Internal Medicine; Visit Provider Nurse Practitioner Family | DX: I25.10 Atherosclerotic heart disease of native coronary artery without angina pectoris (principal); R94.31 Abnormal electrocardiogram [ECG] [EKG]; I10 Essential (primary) hypertension; E78.5 Hyperlipidemia, unspecified; Z79.02 Long term (current) use of antithrombotics/antiplatelets; Z79.82 Long term (current) use of aspirin; Z79.899 Other long term (current) drug therapy; Z95.5 Presence of coronary angioplasty implant and graft | CPT/HCPCS: 93005; 99212 ==

== ENCOUNTER 2022-04-08 06:01 | Outpatient (REF) | payer MEDICAID, SELFPAY ==
--- NOTE | ~2022-04-08 | CT_ITS ---
EXAMINATION: CT ABDOMEN AND PELVIS WITH CONTRAST CLINICAL INFORMATION: Abdominal pain. COMPARISON: Ultrasound 01/25/[address] of 03/28/2018 TECHNIQUE: Multidetector volumetric images were obtained from the superior aspect of the liver through the pubic symphysis following administration 85 mL of Omnipaque 350 intravenous contrast. Sagittal and coronal reformatted images were obtained on the technologist's workstation. Oral contrast: Yes This CT examination was performed using dose optimization techniques as appropriate, variously including the following: *Automated exposure control *Adjustment of mA and/or kV according to patient size (this includes techniques or standardized protocols for targeted exams where dose is matched to indication/reason for exam; i.e. extremities or head) *Use of iterative reconstruction technique DLP: 370 mGy-cm FINDINGS: LUNG BASES: The visualized lung bases are unremarkable. No pleural or pericardial effusion. LIVER, GALLBLADDER, AND BILIARY TREE: The liver is normal in size, shape, and attenuation. No focal hepatic lesion or biliary ductal dilatation is present. The gallbladder is unremarkable with no evidence of radiopaque gallstones, gallbladder wall thickening, or obvious pericholecystic inflammatory changes. PANCREAS: Unremarkable. SPLEEN: Unremarkable. ADRENAL GLANDS: No abnormal mass or other abnormality identified. KIDNEYS AND URETERS: The kidneys are normal in size, shape, and attenuation. No hydronephrosis, hydroureter, or calculi seen. No perinephric stranding. BLADDER: Unremarkable. GASTROINTESTINAL TRACT: No dilated loops of large or small bowel are present. No free air or free fluid is seen. No pericolonic inflammatory change. The appendix is visualized and appears unremarkable. ABDOMINAL WALL: No significant hernia is appreciated. LYMPH NODES: No lymphadenopathy is seen. VASCULAR: Unremarkable. PELVIC VISCERA: Unremarkable. OSSEOUS STRUCTURES: No suspicious destructive bony lesions identified. There are bilateral L5 pars defects present. There is a nonobstructive sclerotic region seen within the left iliac bone adjacent to the sacroiliac joint. CT/CT abdomen pelvis w IV con IMPRESSION: No CT abnormal findings identified to suggest patient's symptomatology. Fleischner guidelines were followed.
[2022-04-08] MEDS: iohexoL 350 MG/ML 100 ML INFUS..BTL IV (08:43)
[2022-04-08] MEDS: Barium Sulfate Oral (Vanilla) 450 ML ORAL.SUSP 900 ML PO (08:44)
== END 2022-04-08 06:02 | disposition home or self-care (01) ==
LOC: HO.CT 06:01
PROVIDERS: Visit Provider Nurse Practitioner
DX: R10.9 Unspecified abdominal pain (principal)
CPT/HCPCS: 74177; Q9967

== ENCOUNTER → 2022-04-16 06:32 | Outpatient (REF) | payer MEDICAID, SELFPAY ==
--- NOTE | 2022-04-16 06:36 | CA_ITS ---
Transthoracic Echocardiogram Patient (Last, First, Middle): Owen Montano, Gender: Male Date of : 1970 Age: 51 Procedure Date: 04/16/2022 Procedure Type: Transthoracic Echocardiogram Location: OP Height: 167.64 cm Weight: 80. kg BSA: 1.90 m2 Heart Rate: 51 bpm BP: 118 / 64 mmHg Sql Consultant: SB Referring MD: Esmer Medellin ELEVATOR REPAIRERJody Symptoms: R94.31 - Abnormal electrocardiogram [ECG] [EKG] Study Quality: Adequate ECG Rhythm: Sinus Conclusions: - The left ventricular systolic function is normal. The calculated ejection fraction is 62% by biplane method. - No obvious valvular pathology seen on this study. Findings Left Ventricle Normal left ventricular cavity size. There is normal left ventricular wall thickness. The left ventricular systolic function is normal. The calculated ejection fraction is 62% by biplane method. There is no evidence of regional wall motion abnormalities. Diastolic function is normal for age. Right Ventricle Normal right ventricular cavity size and systolic function. Atria The left atrium is normal in size. Aortic Valve There is a normal trileaflet aortic valve. There is no aortic valve stenosis. There is no aortic valve regurgitation. Mitral Valve The mitral valve appears normal. There is no mitral valve regurgitation. There is no mitral valve stenosis. Pulmonic Valve The pulmonic valve is likely normal. Tricuspid Valve Normal tricuspid valve structure. There is trace tricuspid valve regurgitation. There is no evidence of pulmonary hypertension. Great Vessels The asc aorta is normal in size. Small plaque is seen in the sinuses of Valsalva. Venous The inferior vena cava is normal in size and collapses greater than 50% with inspiration. Pericardium/Pleural There is no evidence of pericardial effusion. Prior Study Comparison No significant change compared to prior study dated: 01/19/2019. Recommendations, Care & Conclusions No obvious valvular pathology seen on this study. Measurements 2D Linear Measurements IVSd: 0.74 0.6-0.9/0.6-1.0 cm LVIDd: 4.66 3.9-5.3/4.2-5.9 cm LVIDs: 3.52 2.0-3.6 cm LVPWd: 0.63 0.7-1.1 cm LA Diam: 3.70 2.7-3.8/3.0-4.0 cm LV Mass: 122.56 67-162/88-224 g LVOT Diam: 2.00 3.0+(-)1.3 cm 2D Systolic Function EF 4C: 55.50 >55% EF 2C: 67.00 >55% EF BiP: 61.50 >55% Mitral Valve MV Pk E: 0.59 MV PK A: 0.71 MV Decel Time: 136.00 E/A: 0.80 E'Lateral: 5.87 E'Medial: 5.22 E/E' Med: 11.20 E/E' Lat: 10.00 PHT: 40.00 MVA PHT: 5.50 Decel Otero: 4.31 Aortic Valve AoV Pk Donte: 1.54 AoV Mn Donte: 1.08 AoV VTI: 0.33 AoV Pk Grad: 9.00 Aov Mn Grad: 5.00 NEERAJ Cont.VTI: 2.47 LVOT LVOT Pk Donte: 1.16 LVOT Mn Donte: 0.85 LVOT VTI: 0.26 LVOT Pk Grad: 5.00 LVOT Mn Grad: 3.00 LVOT Diam: 2.00 LVOT Area: 3.14 Diastolic Function MV Pk E: 0.59 MV Pk A: 0.71 E/A: 0.80 E'Medial: 5.22 E/E' Med: 11.20 E' Laterial: 5.87 E/E' Lat: 10.00 Right Ventricle TAPSE (mm): 20.40 TVS' Donte: 12.60 Tricuspid Valve RA Press: 3.00 Great Vessels Aorta Sinus of Valsalva: 3.10 2.0-3.5 cm Ao Asc: 3.20 2.1-3.4 cm Pulmonary Veins Pulm Vein S/D 0.80 Pulmonary Valve PV Pk Donte: 1.33 Peak PV Grad: 7.00 Updated in Other Vendor System with Status of Final Bob Driscoll MD electronically signed on 04/17/2022 9:29:39 AM with status of Final
== END ==
LOC: HO.CARD 06:32
PROVIDERS: Visit Provider Nurse Practitioner Family
DX: I25.10 Atherosclerotic heart disease of native coronary artery without angina pectoris (principal); R94.31 Abnormal electrocardiogram [ECG] [EKG]; Z95.5 Presence of coronary angioplasty implant and graft
CPT/HCPCS: 93306

== ENCOUNTER → 2022-04-17 08:41 | Outpatient (REF) | payer MEDICAID, SELFPAY ==
--- NOTE | ~2022-04-17 | NM_ITS ---
Lexiscan Myocardial perfusion study Indication: Coronary artery disease, assess for ischemia Technique: The patient was brought in for a Lexiscan perfusion study on 04/17/2022 and was injected 0.4 mg of Lexiscan intravenously. Within a minute of this injection 25 mCi of sestamibi was given intravenously. Images were obtained using the SPECT gamma camera interlaced with the gating device. Images were obtained in supine position. Resting perfusion study was performed on 04/18/2022. Patient was administered 25 mCi of sestamibi intravenously at rest. Images were then obtained in supine position. Images were processed with the software and compared side to side in short axis, horizontal long axis and vertical long axis views. Total DLP 81mGy-cm. Findings: Raw acquisition reviewed. The stress perfusion study showed no significant perfusion abnormality. Both uncorrected as well as CT attenuation corrected images were reviewed. The gated study shows normal LV systolic function with calculated LVEF of 60%. LV cavity is normal in size. The gated study shows normal wall thickening and contraction of segments. Resting study shows no significant perfusion abnormality. Gating at rest reveals normal wall motion with ejection fraction at 59%. The findings are consistent with no clear reversible or fixed perfusion abnormality. NM/NM azam perf SPECT rest & str Impression: 1. Myocardial perfusion imaging study shows normal myocardial perfusion. No evidence of any ischemia or infarction. 2. Gated LVEF is 60% during stress and 59% during rest. 3. Transient ischemic dilatation not present. EKG component of the test reported separately.
--- NOTE | 2022-04-17 08:45 | CA_ITS ---
Acquisition Time: 2022-04-17 09:23:49 Total Exercise Time: 00:07:30 Test Indications: Abnormal ECG Medications: SEE CHART Protocol: MAGDA Max HR: 121 BPM 72% of Pred: 168 BPM Max BP: 118/070 mmHG Max Work Load: 9.3 METS Exercise stress test with exercise 7 min 30 sec of Magda protocol, achieving 68% MPHR with fatigue, with no anginal symptoms, with blunted BP response to exercise with max BP 118/70. Treadmill placed in recovery and slowed to 1 MPH. Testing changed to a pharmacological nuclear stress test with Lexiscan injection, without anginal symptoms, with isolated PVCs, with normotensive response to injection, with nondiagnostic EKG for ischemia. Nuclear images pending. Test reviewed with Dr Giron Referred By: Esmer Medellin Overread By: ESMER MEDELLIN
== END ==
LOC: HO.CARD 08:41
PROVIDERS: Visit Provider Nurse Practitioner Family
DX: I25.10 Atherosclerotic heart disease of native coronary artery without angina pectoris (principal); R94.31 Abnormal electrocardiogram [ECG] [EKG]; Z95.5 Presence of coronary angioplasty implant and graft
CPT/HCPCS: 78452; 93017; A9500; J0280; J2785

== ENCOUNTER 2022-04-30 08:32 | Outpatient (REF) | payer MEDICAID, SELFPAY ==
[2022-04-30 09:14] LABS: Hematocrit 52.5 % (42.0-52.0)
[2022-04-30 09:20] LABS: Appearance Urine Clear; Color Urine Yellow; Glucose Urine UA >=1000 mg/dL (Negative); Leukocyte Esterase Urine Negative (Negative); Nitrite Urine Negative (Negative); PH 6.5 (5.0-9.0); Specific Gravity - Urine >= 1.030 (1.005-1.025); UMIC TRIGGER UACC YES; Urine Blood Negative (Negative); Urine Ketones Negative (Negative); Urine Protein Negative (Neg-Trace)
[2022-04-30 09:24] LABS: Bacteria Urine None Seen (None Seen); Hyaline Casts Urine 0-2 /LPF (0-2); RBC Urine 0-2 /HPF (0-2); Squamous Epithelial Cell Urine 0-2 /HPF (0-2); WBC Urine 0-5 /HPF (0-5)
[2022-04-30 09:46] LABS: Cholesterol 84 mg/dL; HDL Cholesterol 40 mg/dL; LDL Cholesterol Calculated 27 mg/dl; Triglycerides 88 mg/dL
[2022-04-30 10:07] LABS: Prostate Specific Antigen 0.77 ng/mL (<0.05-4.0)
[2022-05-05 12:02] LABS: Testosterone, Total 1012 ng/dL (250-1100)
== END 2022-04-30 08:33 | disposition home or self-care (01) ==
LOC: HO.LAB 08:32
PROVIDERS: Nurse Practitioner; PCP Internal Medicine; Visit Provider Urology
DX: Z12.5 Encounter for screening for malignant neoplasm of prostate (principal); N32.0 Bladder-neck obstruction; E29.1 Testicular hypofunction
CPT/HCPCS: 36415; 80061; 81001; 84153; 84403; 85014

== ENCOUNTER → 2022-05-15 08:38 | Outpatient (BNVA) | payer MEDICAID, SELFPAY | PROVIDERS: PCP Internal Medicine; Visit Provider Urology | DX: E29.1 Testicular hypofunction (principal) | CPT/HCPCS: 51798; 99212 ==

== ENCOUNTER 2022-05-28 15:39 | Outpatient (REF) | payer MEDICAID, SELFPAY ==
--- NOTE | ~2022-05-28 | XR_ITS ---
EXAMINATION: XR ABDOMEN WITH DECUBITUS VIEWS CLINICAL INDICATION: Abdominal pain. COMPARISON: None TECHNIQUE: 2 views FINDINGS: There is scattered stool and gas seen in colon without distention. There is no organomegaly. No radiopaque calculi seen. Visualized bones are grossly unremarkable. XR/XR abdomen w decubitus IMPRESSION: Mild constipation.
== END 2022-05-28 15:40 | disposition home or self-care (01) ==
LOC: HO.XRAY 15:39
PROVIDERS: PCP Internal Medicine; Visit Provider Nurse Practitioner
DX: K58.0 Irritable bowel syndrome with diarrhea (principal); K21.9 Gastro-esophageal reflux disease without esophagitis; K75.81 Nonalcoholic steatohepatitis (NASH); R10.12 Left upper quadrant pain; M25.50 Pain in unspecified joint; M47.816 Spondylosis without myelopathy or radiculopathy, lumbar region; M54.6 Pain in thoracic spine
CPT/HCPCS: 74021; 99212

== ENCOUNTER → 2022-06-11 12:33 | Outpatient (BNVA) | payer MEDICAID, SELFPAY | PROVIDERS: PCP Internal Medicine; Referring Provider Internal Medicine; Visit Provider Internal Medicine | DX: I25.10 Atherosclerotic heart disease of native coronary artery without angina pectoris (principal); I10 Essential (primary) hypertension; E78.5 Hyperlipidemia, unspecified; E11.8 Type 2 diabetes mellitus with unspecified complications; R94.5 Abnormal results of liver function studies | CPT/HCPCS: 99212 ==

== ENCOUNTER 2022-07-31 08:53 | Outpatient (REF) | payer MEDICAID, SELFPAY ==
--- NOTE | ~2022-07-31 | XR_ITS ---
EXAMINATION: XR THORACIC SPINE CLINICAL INFORMATION: Pain in the thoracic spine. COMPARISON: CT dated 04/08/2022. TECHNIQUE: AP and lateral views of the thoracic spine FINDINGS: Vertebral body heights are normal. Alignment is anatomic without spondylolisthesis. Tiny marginal osteophytes are present in the thoracic spine. Intervertebral disc heights appear well-preserved. No additional findings of degenerative disc disease. Paraspinal soft tissues are unremarkable. No osseous lesions are identified. XR/XR thoracic spine 2V IMPRESSION: Minimal degenerative disc disease in the lower thoracic spine. No acute osseous abnormalities.
[2022-07-31 11:23] LABS: Alanine Aminotransferase 23 U/L (0-40); Albumin Level 4.3 g/dL (3.5-5.0); Alkaline Phosphatase 90 U/L (39-117); Anion Gap 12 (12-20); Aspartate Amino Transferase 17 U/L (5-37); Bilirubin Total 0.8 mg/dL (0.0-1.0); Blood Urea Nitrogen 11 mg/dL (9-16); Calcium 9.6 mg/dL (8.4-10.2); Carbon Dioxide 28 mmol/L (22-29); Chloride 101 mmol/L (96-108); Estimated Glomerular Filt Rate > 60; Glucose Random 166 mg/dL (60-115); Potassium 4.3 mmol/L (3.3-5.1); Sodium 137 mmol/L (135-145); Total Protein 6.6 g/dL (6.5-8.0)
[2022-08-02 13:48] LABS: Alpha Fetoprotein 14.5 ng/mL (<6.1)
== END 2022-07-31 08:54 | disposition home or self-care (01) ==
LOC: HO.LAB 08:53
PROVIDERS: PCP Internal Medicine; Visit Provider Nurse Practitioner
DX: K58.0 Irritable bowel syndrome with diarrhea (principal); K75.81 Nonalcoholic steatohepatitis (NASH); K21.9 Gastro-esophageal reflux disease without esophagitis; K22.4 Dyskinesia of esophagus; D12.6 Benign neoplasm of colon, unspecified; R77.2 Abnormality of alphafetoprotein; M54.6 Pain in thoracic spine
CPT/HCPCS: 36415; 72070; 80053; 82105; 99212

== ENCOUNTER 2022-08-05 08:31 | Outpatient (REF) | payer MEDICAID, SELFPAY ==
--- NOTE | ~2022-08-05 | XR_ITS ---
EXAMINATION: XR HIP, RIGHT CLINICAL INFORMATION: Pain. COMPARISON: None TECHNIQUE: Two views of the right hip. FINDINGS: The right hip joint space is normal maintained normal. There is mild right perihepatic spurring. No bony erosive changes seen. No acute fracture, dislocation or subluxation seen. SI joints are symmetrical. XR/XR hip RT min 2V IMPRESSION: Mild right perihepatic spurring. No visible acute fracture, dislocation or subluxation seen.
== END 2022-08-05 08:32 | disposition home or self-care (01) ==
LOC: HO.XRAY 08:31
PROVIDERS: PCP Internal Medicine; Visit Provider Internal Medicine
DX: M25.551 Pain in right hip (principal); M54.50 Low back pain, unspecified; M43.00 Spondylolysis, site unspecified
CPT/HCPCS: 73502; 99202

== ENCOUNTER 2022-08-12 07:44 | Outpatient (REF) | payer MEDICAID, SELFPAY ==
--- NOTE | ~2022-08-12 | US_ITS ---
EXAMINATION: US ABDOMEN LIMITED CLINICAL INFORMATION: Nonalcoholic steatohepatitis (COLON). COMPARISON: CT abdomen and pelvis with contrast 04/08/2022. Ultrasound abdomen limited 01/25/2022. TECHNIQUE: Real-time imaging of the right upper quadrant abdominal viscera. FINDINGS: PANCREAS: Obscured by bowel gas. LIVER: Normal. The liver is normal in size. The liver contour is normal. Parenchymal echogenicity is normal. No focal hepatic lesion. There is no intrahepatic biliary duct dilatation seen. GALLBLADDER: Normal. The gallbladder is physiologically distended without evidence of stones, sludge, polyps, wall thickening or pericholecystic fluid. COMMON BILE DUCT: Normal in caliber measuring 0.3 cm in diameter. RIGHT KIDNEY: Punctate echogenic foci without twinkle or shadowing may reflect a vascular reflector's. No hydronephrosis. No renal calculi or focal parenchymal lesions. The kidney measures 11.2 cm in maximum dimension. FREE FLUID: None. US/US abdomen limited IMPRESSION: Unremarkable sonographic appearance of the liver. Pancreas is obscured by bowel gas limiting evaluation.
== END 2022-08-12 07:45 | disposition home or self-care (01) ==
LOC: HO.US 07:44
PROVIDERS: Visit Provider Nurse Practitioner
DX: K75.81 Nonalcoholic steatohepatitis (NASH) (principal)
CPT/HCPCS: 76705

== ENCOUNTER 2022-08-13 18:53 | Outpatient (REF) | payer MEDICAID, SELFPAY ==
--- NOTE | ~2022-08-13 | MR_ITS ---
EXAMINATION: MR LUMBAR SPINE WITHOUT CONTRAST CLINICAL INFORMATION: Low back pain COMPARISON: X-ray lumbar spine 11/22/2021 TECHNIQUE: MRI of the lumbar spine was obtained using routine sequences without contrast. FINDINGS: VERTEBRAL BODIES AND PARASPINAL STRUCTURES: There are 5 nonrib-bearing lumbar type vertebral bodies. Vertebral body heights, signal, and sagittal alignment are maintained. No suspicious bony lesions seen. Disc desiccation at L5-S1. Disc spaces are maintained. The aorta is normal in caliber. No adenopathy. Paraspinal muscle bulk is symmetric. CONUS MEDULLARIS AND CAUDA EQUINA: Conus demonstrates normal signal, terminating at T12. Cauda equina appears unremarkable. SPINAL LEVELS: On the sagittal sequence at T11-T12, T12-L1, disc contour is within normal limits with no evidence of central canal or foramen stenosis. L1-L2: Normal disc contour. No central or foraminal stenosis. L2-L3: Normal disc contour. No central or foraminal stenosis. L3-L4: Normal disc contour. No central or foraminal stenosis. L4-L5: Normal disc contour. No central or foraminal stenosis. L5-S1: Broad-based posterior disc protrusion. Annular fissure in the central and right paracentral region. Mild right facet arthropathy. No central canal stenosis. Mild right neural foramen narrowing, possible abutment of the exiting nerve. Left neural foramen appears patent. MR/MR lumbar spine wo con IMPRESSION: L5-S1: Broad-based posterior disc protrusion with a central and right paracentral annular fissure. Mild right neural foraminal narrowing with possible abutment of the exiting nerve.
== END 2022-08-13 18:54 | disposition home or self-care (01) ==
LOC: HO.MRI 18:53
PROVIDERS: Visit Provider Internal Medicine
DX: M54.50 Low back pain, unspecified (principal)
CPT/HCPCS: 72148

== ENCOUNTER 2022-09-02 10:35 | Outpatient (REF) | payer MEDICAID, SELFPAY ==
--- NOTE | ~2022-09-02 | XR_ITS ---
EXAMINATION: XR HIP, RIGHT CLINICAL INFORMATION: Pain right hip COMPARISON: Right hip radiograph from 08/05/2022 TECHNIQUE: Two views of the right hip. FINDINGS: No acute visible fracture or dislocation. Mild degenerative changes of the right femoral acetabular joint with spurring along the right lateral acetabular roof. Joint spaces and alignment are otherwise maintained. Soft tissues are unremarkable. XR/XR hip RT min 2V IMPRESSION: 1. No acute visible fracture or dislocation. 2. Mild degenerative changes of the right femoral acetabular joint.
== END 2022-09-02 10:36 | disposition home or self-care (01) ==
LOC: HO.XRAY 10:35
PROVIDERS: PCP Internal Medicine; Visit Provider Internal Medicine
DX: M25.551 Pain in right hip (principal)
CPT/HCPCS: 73502; 99212

== ENCOUNTER 2022-10-23 08:14 | Outpatient (REF) | payer MEDICAID, SELFPAY ==
--- NOTE | ~2022-10-23 | XR_ITS ---
EXAMINATION: CERVICAL SPINE 3 VIEWS CLINICAL INFORMATION: Cervicalgia. COMPARISON: None. TECHNIQUE: Frontal, lateral and odontoid views are obtained. FINDINGS: Vertebral body heights and alignment are normal. The disc spaces are well-maintained. No acute fracture or spondylolisthesis is seen. There is multi-level cervical spondylosis. The posterior elements are intact. There is no prevertebral soft tissue swelling. The dens and C7-T1 interface are normal. XR/XR cervical spine 2V IMPRESSION: 1. No acute fracture or spondylolisthesis is seen. 2. The cervical disc spaces are well-maintained. 3. There is multi-level cervical spondylosis.
== END 2022-10-23 08:15 | disposition home or self-care (01) ==
LOC: HO.XRAY 08:14
PROVIDERS: PCP Internal Medicine; Visit Provider Nurse Practitioner
DX: M54.2 Cervicalgia (principal); K21.9 Gastro-esophageal reflux disease without esophagitis; K75.81 Nonalcoholic steatohepatitis (NASH); K58.0 Irritable bowel syndrome with diarrhea; R77.2 Abnormality of alphafetoprotein
CPT/HCPCS: 72040; 99212

== ENCOUNTER 2022-10-31 08:15 | Outpatient (REF) | payer MEDICAID, SELFPAY ==
[2022-10-31 08:40] LABS: Hematocrit 51.4 % (42.0-52.0); Hemoglobin 17.3 g/dl (14.0-18.0); Mean Corpuscular HGB Conc 33.7 g/dl (31.0-36.0); Mean Corpuscular Hemoglobin 29.7 pg (27.0-33.0); Mean Corpuscular Volume 88.2 fL (80.0-98.0); Mean Platelet Volume 10.7 fL (9.4-12.4); Platelet Count 224 X10*3/uL (160-400); Red Blood Count 5.83 X10*6/uL (4.60-5.80); Red Cell Distribution Width 12.9 % (11.0-16.0); White Blood Count 6.6 X10*3/uL (4.8-10.8)
[2022-10-31 09:19] LABS: Prostate Specific Antigen 0.72 ng/mL (<0.05-4.0)
[2022-11-06 13:33] LABS: Testosterone, Total 388 ng/dL (250-1100)
== END 2022-10-31 08:16 | disposition home or self-care (01) ==
LOC: HO.LAB 08:15
PROVIDERS: PCP Internal Medicine; Visit Provider Urology
DX: E29.1 Testicular hypofunction (principal)
CPT/HCPCS: 36415; 84153; 84403; 85027

== ENCOUNTER 2022-11-13 05:57 | Outpatient (REF) | payer MEDICAID, SELFPAY ==
--- NOTE | ~2022-11-13 | FL_ITS ---
EXAMINATION: XR FLUOROSCOPY WITH IMAGES CLINICAL INFORMATION: M54.50 - Low back pain, unspecified. COMPARISON: MR lumbar spine 08/13/2022 TECHNIQUE: Fluoroscopy Supervised By: Dr. Jesu Wood. Fluoroscopy Time: 0.2 minutes. Cumulative Dose: 4.64 mGy. DAP: 0.710 Gycm2. Images: 2. FINDINGS: There is a spinal needle overlying the outer right L5 neural foramen. There is contrast seen in the respective nerve sheath along with transforaminal extension. No visible vascular communication. FL/FL guidance in treatment room IMPRESSION: Fluoroscopy for pain management procedure.
== END 2022-11-13 05:58 | disposition home or self-care (01) ==
LOC: CF 05:57
PROVIDERS: Visit Provider Internal Medicine
DX: M43.00 Spondylolysis, site unspecified (principal); M54.50 Low back pain, unspecified; M54.16 Radiculopathy, lumbar region
CPT/HCPCS: 64483; J1100

== ENCOUNTER → 2022-11-15 08:39 | Outpatient (BNVA) | payer MEDICAID, SELFPAY | PROVIDERS: PCP Internal Medicine; Visit Provider Urology | DX: E29.1 Testicular hypofunction (principal) | CPT/HCPCS: 99212 ==

== ENCOUNTER → 2022-12-13 08:14 | Outpatient (BNVA) | payer MEDICAID, SELFPAY | PROVIDERS: PCP Internal Medicine; Visit Provider Internal Medicine | DX: M54.16 Radiculopathy, lumbar region (principal); M25.551 Pain in right hip | CPT/HCPCS: 99212 ==

== ENCOUNTER 2023-01-22 08:53 | Outpatient (REF) | payer MEDICAID, SELFPAY | END 2023-01-22 08:54 | disposition home or self-care (01) | LOC: HO.LAB 08:53 | PROVIDERS: PCP Internal Medicine; Visit Provider Nurse Practitioner | DX: K22.4 Dyskinesia of esophagus (principal); K75.81 Nonalcoholic steatohepatitis (NASH); K21.9 Gastro-esophageal reflux disease without esophagitis; K58.0 Irritable bowel syndrome with diarrhea; R11.2 Nausea with vomiting, unspecified; R10.12 Left upper quadrant pain; E11.8 Type 2 diabetes mellitus with unspecified complications; R77.2 Abnormality of alphafetoprotein | CPT/HCPCS: 36415; 83036; 99212 ==

== ENCOUNTER 2023-01-28 13:36 | Outpatient (AMB) | payer MEDICAID, SELFPAY ==
[2023-01-28 14:07] VITALS: BP 108/78; PULSE 56; BMI 27.0
--- NOTE | 2023-01-28 14:07 | A.OFFVIS_ITS ---
Intake Vital Signs 01/28/23 14:07 Height 5 ft 6 in Weight 167 lb 1.766 oz BMI 27.0 BP 108/78 Blood Pressure Location Lt brachial Position Sitting Pulse 56 Intake Visit Reasons: 6 mth f/u Intake Note: 6 month follow up w/ EKG Table Tender Required: Yes Table Tender Language: [employer] Maker Helper Name: [id number] Poli Accompanied by: Self / Same As Patient Allergies No Known Allergies [No Known Allergies*] Allergy (Verified 01/28/23 14:09) Medication List - Last Reconciled 01/28/23 by Bob Driscoll MD alirocumab (Praluent Pen) 75 mg subcut Q2W aspirin (Adult Low Dose Aspirin) 81 mg PO DAILY blood sugar diagnostic (FreeStyle Lite Strips) As directed blood-glucose meter (FreeStyle [place] Lite kit) As directed canagliflozin (Invokana) 100 mg PO DAILY cholecalciferol (vitamin D3) 25 mcg PO DAILY clopidogrel 75 mg PO DAILY cyclobenzaprine 5 mg PO TID PRN dicyclomine 20 mg PO QID famotidine 40 mg PO BID fexofenadine (Allergy Relief (fexofenadine)) 180 mg PO DAILY gabapentin 400 mg PO TID glipizide ER 2.5 mg PO DAILY hydrocortisone 2.5% (Proctozone-HC) 1 ea [place] BID PRN hydroxyzine HCl 1 tab PO BEDTIME PRN lancets (TRUEplus Lancets) As directed levothyroxine 25 mcg PO QAM lidocaine 5% (Lidoderm) 1 patch topical DAILY PRN ycrokr-ivhdueqi-mlkmbai 5,000-17,000- 24,000 unit (Zenpep) 1 cap PO QID loperamide 2 mg PO BID PRN lorazepam 2 mg PO DAILY PRN metformin 1,000 mg PO BID metoprolol succinate ER 50 mg PO DAILY nitroglycerin 0.4 mg sublingual Q5M PRN oxybutynin chloride ER 5 mg PO DAILY 90 days promethazine 25 mg PO Q12H PRN risperidone 4 mg PO BEDTIME rosuvastatin 20 mg PO DAILY 90 days sertraline 100 mg PO DAILY sertraline 50 mg PO 1200 syringe with needle (BD Luer-Judy Syringe) As directed Q2 weeks tamsulosin 0.4 mg PO BEDTIME 90 days testosterone cypionate 140 mg (0.7 mL) IM Q2W 28 days HPI HPI Comments History of Present Illness Details Owen returns for follow-up regarding coronary disease. He has a history of multiple stents placed in [place] few years back. Overall, he seems to be doing fine. Some symptoms like feeling short of breath at nighttime but not clear if he is actually describing sleep apnea. He states he has had a sleep study in the past but I cannot located. No complaints like angina. Otherwise doing okay. [facility] Medical History (Updated 01/22/23 @ 09:18 by JORDAN Corey) Allergic rhinitis Anxiety Atherosclerotic cardiovascular disease BPH (benign prostatic hyperplasia) Decreased libido Elevated AFP Essential hypertension Hypogonadism Hypogonadism in male Hypogonadism in male Hypothyroid IBS (irritable bowel syndrome) COLON (nonalcoholic steatohepatitis) On beta catherine at home Other and unspecified hyperlipidemia Type 2 diabetes mellitus with unspecified complications Surgical History History of cardiac cath History of cardiac cath History of cardiac cath History of esophagogastroduodenoscopy (EGD) Hx of colonoscopy Family History Father Cardiac disease Mother Cardiac disease Social History Are you a primary daytime caregiver to a significant other at home: No Do you presently have visiting nurse or other home services: No Alcohol intake: former Patient Tobacco Use Status: Former Tobacco user Quit Date: 3 yrs ago Tobacco use type: Cigarette Review of Systems Const Denies weakness ENT Denies dizziness Card Denies chest pain, Denies chest pain with activity, Denies syncope, Denies rapid heart rate, Denies pedal edema, Denies edema, Denies leg edema, Denies lightheadedness, Denies palpitations, Denies dyspnea, Denies dyspnea on exertion and Denies orthopnea Resp Denies cough, Denies dyspnea and Denies dyspnea on exertion GI Denies hematochezia and Denies change in stool character Musc Denies abnormal gait, Denies muscle cramps, Denies muscle weakness, Denies numbness, Denies radiating pain into limb and Denies tingling Neuro Denies abnormal gait, Denies dizziness, Denies syncope, Denies numbness, Denies tingling and Denies weakness Endo Denies palpitations Physical Exam Vital Signs: Last Vital Signs Pulse 56 01/28/23 14:07 BP 108/78 01/28/23 14:07 BMI result Body Mass Index 27.0 Const General: comfortable and no acute distress Orientation/consciousness: patient oriented x3 HEENT Other: Unremarkable Head: Yes normal to inspection Neck Neck: Yes normal visual inspection Chest Chest palpation & inspection: normal inspection of the chest Resp Auscultation: clear to auscultation bilaterally Cardio Palpation: normal PMI Heart sounds: S1 normal heart sound present, S2 normal heart sound present, no gallops, no murmurs and no rubs GI Palpation (GI): Soft to palpation Back/Spine/Pelvis Other: unremarkable Skin General skin exam: no rashes or lesions noted Neuro General: patient oriented x3 Extrem General: Yes normal to inspection Psych Mental Status: mental status grossly normal Office Procedures EKG Details: EKG with sinus bradycardia at 56/Min; no significant ST-T changes and otherwise unremarkable. [place] [id number], Complete Assessment & Plan Assessment & Plan (1) Atherosclerotic cardiovascular disease: Code(s): I25.10 - Atherosclerotic heart disease of [place] coronary artery without angina pectoris Plan: Cardiac catheterization/stenting of distal left main into proximal LAD from 2016; proximal circumflex and ostial LAD stents 2017. Myocardial perfusion imaging study from 2021 shows normal perfusion. No evidence of any ischemia or infarction. Echocardiogram from 2021 with normal LVEF at 60%. No wall motion abnormalities. No significant valvular issues. Overall, stable in this regard. He remains on long-term dual antiplatelet therapy, due to stent location. Otherwise, continue beta-blockers. (2) Essential hypertension: Code(s): I10 - Essential (primary) hypertension Plan: Stable. No changes. (3) Other and unspecified hyperlipidemia: Code(s): E78.5 - Hyperlipidemia, unspecified Plan: On Praluent as well as statins. Most recent LDL 27 mg/dL. Triglycerides 88 mg/dL. (4) Type 2 diabetes mellitus with unspecified complications: Code(s): E11.8 - Type 2 diabetes mellitus with unspecified complications Plan: Most recent hemoglobin A1c is 7.1%. On glipizide and metformin. Plan Due to concerns for shortness of breath at nighttime, possible sleep apnea. Per patient he has had a sleep study. We will try to locate it. If not, consider repeating. Coding Level of Care Code Est Pt Level 4 (43141) Diagnoses Atherosclerotic cardiovascular disease I25.10 Essential hypertension I10 Other and unspecified hyperlipidemia E78.5 Type 2 diabetes mellitus with unspecified complications E11.8 CPT Codes EKG - CPT: 04386-[id number], Complete ([id number])
== END 2023-01-28 14:31 | disposition home or self-care (01) ==
PROVIDERS: Visit Provider Internal Medicine
DX: I25.10 Atherosclerotic heart disease of native coronary artery without angina pectoris (principal); I10 Essential (primary) hypertension; E78.5 Hyperlipidemia, unspecified; E11.8 Type 2 diabetes mellitus with unspecified complications
CPT/HCPCS: 93010; 99214

== ENCOUNTER → 2023-01-28 13:36 | Outpatient (BNVA) | payer MEDICAID, SELFPAY | PROVIDERS: Visit Provider Internal Medicine | DX: I25.10 Atherosclerotic heart disease of native coronary artery without angina pectoris (principal); I10 Essential (primary) hypertension; E78.5 Hyperlipidemia, unspecified; E11.8 Type 2 diabetes mellitus with unspecified complications; Z79.84 Long term (current) use of oral hypoglycemic drugs; Z79.899 Other long term (current) drug therapy | CPT/HCPCS: 93005; 99212 ==

== ENCOUNTER 2023-02-05 06:00 | Outpatient (REF) | payer MEDICAID, SELFPAY ==
--- NOTE | ~2023-02-05 | FL_ITS ---
EXAMINATION: XR FLUOROSCOPY WITH IMAGES CLINICAL INFORMATION: Lumbar radiculopathy; hip pain. COMPARISON: Fluoroscopy dated 11/13/2022; portions of the MRI lumbar spine dated 08/13/2022. TECHNIQUE: Fluoroscopy Supervised By: Dr. Hernandez. Fluoroscopy Time: 0.3 minutes. Cumulative Dose: 4.68 mGy. DAP: 0.467 Gycm2. Images: 3. FINDINGS: The submitted images show injection needles, with tips directed towards the L5-S1 interspace, the L5-S1 neural foramen and the right hip joint space. FL/FL guidance in treatment room IMPRESSION: Intraoperative fluoroscopic guidance is provided during lumbar and right hip pain management procedures. Please see the patient's Operative Report for full procedural details.
== END 2023-02-05 06:01 | disposition home or self-care (01) ==
LOC: CF 06:00
PROVIDERS: Visit Provider Internal Medicine
DX: M54.16 Radiculopathy, lumbar region (principal); M25.551 Pain in right hip
CPT/HCPCS: 20610; 62323; J1020; J1040

== ENCOUNTER 2023-02-05 08:08 | Outpatient (AMB) | payer MEDICAID, SELFPAY ==
[2023-02-05 08:15] VITALS: BP 100/72; PULSE 70; RESP 14; O2SAT 97
--- NOTE | 2023-02-05 08:15 | MHC.OFFVIS ---
Intake Vital Signs 02/05/23 08:15 BP 100/72 Blood Pressure Location Lt brachial Position Sitting Respiration 14 Pulse 70 Pulse Source Pulse Oximeter Pulse Oximetry (%) 97 Oxygen Delivery Method Room Air Intake Visit Reasons: R intraarticular hip/R parasag interlam L5-S1 JAY Allergies No Known Allergies [No Known Allergies*] Allergy (Verified 02/05/23 08:15) HPI R intraarticular hip/R parasag interlam L5-S1 JAY HPI Details Patient presents for scheduled procedure. Denies any recent cough, cold, infection, fever or other significant changes in medical history since last office visit. [facility] Medical History (Updated 01/22/23 @ 09:18 by JORDAN Corey) Allergic rhinitis Anxiety Atherosclerotic cardiovascular disease BPH (benign prostatic hyperplasia) Decreased libido Elevated AFP Essential hypertension Hypogonadism Hypogonadism in male Hypogonadism in male Hypothyroid IBS (irritable bowel syndrome) COLON (nonalcoholic steatohepatitis) On beta catherine at home Other and unspecified hyperlipidemia Type 2 diabetes mellitus with unspecified complications Surgical History History of cardiac cath History of cardiac cath History of cardiac cath History of esophagogastroduodenoscopy (EGD) Hx of colonoscopy Family History Father Cardiac disease Mother Cardiac disease Social History Are you a primary customer care associate to a significant other at home: No Do you presently have visiting nurse or other home services: No Alcohol intake: former Patient Tobacco Use Status: Former Tobacco user Quit Date: 3 yrs ago Tobacco use type: Cigarette Physical Exam Vital Signs: Last Vital Signs Pulse 70 02/05/23 08:15 Resp 14 02/05/23 08:15 BP 100/72 02/05/23 08:15 Pulse Ox 97 02/05/23 08:15 Oxygen Delivery Method Room Air 02/05/23 08:15 Office Procedures Joint Injection/Drain Joint Injection/Drain Details: Interlaminar epidural steroid injection, L5/S1, Right parasaggital After obtaining written consent, pre-procedure blood pressure and heart rate were stable and recorded in the nursing record. The patient was placed in the prone position. The lumbosacral area was widely prepped with chloraprep and draped in sterile fashion. Fluoroscopic guidance was used to identify the desired interlaminar space and for needle placement. Subcutaneous 0.5% lidocaine was used to anesthetize the skin overlying the target. A 20-gauge M[place]olejo needle was advanced to the epidural space using loss of resistance to contrast technique under fluoroscopic AP and contralateral oblique views. There was no evidence of heme or CSF and no paresthesias were elicited with needle placement. Confirmation of epidural needle placement was performed with 1cc of Isovue 300. Next 3 ml 0.5% lidocaine mixed with 80 mg methylprednisolone was administered epidurally with no pain elicited on injection. The needle tract tubing was then cleared with 1 ml of 0.5% lidocaine. The needle was removed, skin cleansed and a sterile bandage was applied. The patient tolerated the procedure well and no complications were encountered. Following the procedure the patient's vital signs were stable. The patient was discharged home in good condition with post-procedural instructions. Time Out: Immediately prior to the procedure, the following was verbally confirmed that there is a signed consent form and that the correct patient, planned procedure, site and side are consistent with documentation and that necessary equipment and/or blood products are available prior to the start of the case. Complications: none EBL: <1 cc Hip Intra-articular Injection, fluoroscopy guided, Right After informed written consent was obtained, the patient was placed in the supine position. Pre-procedure oxygen saturation, heart rate, and blood pressure were recorded. The skin was prepped with Chloroprep, and draped in a sterile fashion. With the use of fluroscopy the hip joint was identified. With a 25-gauge 1.5 hypodermic needle 0.75% lidocaine was injected subcutaneously over the entry site. A 22-gauge 3.5 spinal needle was then advanced toward the junction of the joint capsule and femoral neck, away from vascular structures based on manual palpation. Once in position, and after negative aspiration, 0.5mL of Isovue 300 was injected outlining the joint capsule followed by injection of 40mg DepoMedreol mixed with 0.5% lidocaine (3mL total). There was no evidence of paresthesias throughout needle placement. The stylet was replaced and then the needle was withdrawn. The patient tolerated the procedure well and there was no evidence of procedural complications. EBL: <1cc Coding 80441 - Large joint 79301 - Caudal/Lumbar Epidural/Interlaminar with fluoroscopy Procedure code (CPT) selection complete Results Reviewed Results Reviewed: 02/05/23 08:54 Lidocaine HCl 2 % MPF [Xylocaine 2 % MPF] 5 ml .ROUTE .STK-MED ONE methylPREDNISolone acetate [DEPO-MedroL] 40 mg .ROUTE .STK-MED ONE methylPREDNISolone acetate [DEPO-MedroL] 80 mg .ROUTE .STK-MED ONE Assessment & Plan Assessment & Plan (1) Lumbar radiculitis: Code(s): M54.16 - Radiculopathy, lumbar region (2) Right hip pain: Code(s): M25.551 - Pain in right hip Plan Patient is status post right parasagittal L5/S1 JAY and right intra-articular hip injection. Patient tolerated procedure well and was discharged home in stable condition with discharge instructions. All questions were answered. We will follow-up via telephone or in clinic to assess response to therapy. A follow-up appointment was made during today's visit. Orders: Orders FL guidance in treatment room Today M25.551 - Pain in right hip FL guidance in treatment room Today M54.16 - Radiculopathy, lumbar region Coding Level of Care Code Procedure Only Diagnoses Lumbar radiculitis M54.16 Right hip pain M25.551 CPT Codes Coding - 37562 Large joint: 50782 - Large joint ([id number]) Coding - Joint 11: 54084 - Caudal/Lumbar Epidural/Interlaminar with fluoroscopy ([id number])
== END 2023-02-05 09:19 | disposition home or self-care (01) ==
PROVIDERS: PCP Internal Medicine; Visit Provider Internal Medicine
DX: M25.551 Pain in right hip (principal); M54.16 Radiculopathy, lumbar region
CPT/HCPCS: 20610; 62323; 77002

== ENCOUNTER → 2023-02-12 07:31 | Outpatient (REF) | payer MEDICAID, SELFPAY ==
--- NOTE | ~2023-02-12 | NM_ITS ---
EXAMINATION: VT RADIONUCLIDE SOLID FOOD GASTRIC EMPTYING 4-HOUR STUDY CLINICAL INFORMATION: Type 2 diabetes mellitus. Nausea and vomiting. COMPARISON: None available. TECHNIQUE: A standard meal consisting of 4 oz of Egg Beaters brand tagged with 1000 microcuries Tc-99m Sulfur Colloid, 8 oz water and 2 slices of toast with jelly was administered orally to the patient. Images were obtained using a dual head gamma camera in the anterior and posterior projections over of the stomach immediately post ingestion and at hourly intervals up to 4 hours post ingestion. The anterior and posterior counts at each time interval were averaged using the geometric mean and expressed as percentage of the immediate post ingestion counts. FINDINGS: There is good visualization of activity in the stomach immediately post ingestion. As the study progresses, there is good clearance of activity from the stomach and visualization of progressively increasing small bowel activity. By the end of the study, there is almost no retention noted in the stomach. Retention in the stomach at each time interval was: 1 hour 36% (normal 37%-90%) 2 hours 11% (normal 30%-60%) 3 hours 3% 4 hours was not performed since only 3% retention was noted at 3 hours images. NM/VT gastric emptying study IMPRESSION: Normal 4-hour solid food gastric emptying study. (For solid meal, rapid gastric emptying is less than 30% at 60 minutes. Delayed gastric emptying criteria is more than 60% remaining at 120 minutes or more than 10% at 240 minutes. The 4-hour value is the best discriminator of a normal or abnormal result). Gastric emptying study grading per JNMT Consensus Recommendations in 2008 (https://tech.snmjournals.org/content/36/1/44) Grade 1 (mild retention): 11-20% at 4h Grade 2 (moderate retention): 21-35% at 4h Grade 3 (severe retention): 36-50% at 4h Grade 4 (very severe retention): >50% retention at 4h
== END ==
LOC: HO.NUCMED 07:31
PROVIDERS: PCP Internal Medicine; Visit Provider Nurse Practitioner
DX: R11.2 Nausea with vomiting, unspecified (principal); E11.8 Type 2 diabetes mellitus with unspecified complications
CPT/HCPCS: 78264; A9541

== ENCOUNTER 2023-02-21 08:23 | Outpatient (REF) | payer MEDICAID, SELFPAY ==
--- NOTE | ~2023-02-21 | CT_ITS ---
EXAMINATION: CT ABDOMEN WITHOUT AND WITH CONTRAST CLINICAL INFORMATION: Abnormality of alpha-fetoprotein. COMPARISON: None available. TECHNIQUE: Contiguous axial thin section helical images of the abdomen were performed before and after the administration of oral contrast and 85 mL of Omnipaque 350 intravenous contrast. Post contrast scans were performed during the arterial phase as well as the portal venous phase. The data set was reformatted in the coronal and sagittal planes and reviewed on an independent workstation. This CT examination was performed using dose optimization techniques as appropriate, variously including the following: *Automated exposure control *Adjustment of mA and/or kV according to patient size (this includes techniques or standardized protocols for targeted exams where dose is matched to indication/reason for exam; i.e. extremities or head) *Use of iterative reconstruction technique DLP: 656 mGy-cm. LUNG BASES: The visualized lung bases are unremarkable. LIVER, GALLBLADDER, AND BILIARY TREE: The liver is mildly enlarged at 17.7 cm in size. No focal hepatic lesion or biliary ductal dilatation is present. The gallbladder is unremarkable with no evidence of radiopaque gallstones, gallbladder wall thickening, or obvious pericholecystic inflammatory changes. PANCREAS: Unremarkable. SPLEEN: Unremarkable. ADRENAL GLANDS: Unremarkable. KIDNEYS AND URETERS: The kidneys are normal in size, shape, and attenuation. No hydronephrosis, hydroureter, or calculi seen. No perinephric stranding. GASTROINTESTINAL TRACT: The visualized bowel is unremarkable. ABDOMINAL WALL: No significant hernia is appreciated. LYMPH NODES: No retroperitoneal lymphadenopathy. VASCULAR: Calcific plaque is present, without aneurysm. OSSEOUS STRUCTURES: Unremarkable. CT/CT abdomen wo/w IV con IMPRESSION: Mild hepatomegaly. No focal liver mass is seen. Fleischner guidelines were followed.
[2023-02-21] MEDS: iohexoL 350 MG/ML 100 ML INFUS..BTL IV (09:57)
[2023-02-21 13:11] LABS: Creatinine POC 0.6 mg/dL (0.5-1.4); GFR POC > 60
== END 2023-02-21 08:24 | disposition home or self-care (01) ==
LOC: HO.CT 08:23
PROVIDERS: PCP Internal Medicine; Visit Provider Nurse Practitioner
DX: R77.2 Abnormality of alphafetoprotein (principal); K75.81 Nonalcoholic steatohepatitis (NASH)
CPT/HCPCS: 74170; 82565; Q9967

== ENCOUNTER 2023-03-10 09:34 | Outpatient (AMB) | payer MEDICAID, SELFPAY ==
--- NOTE | 2023-03-10 09:37 | MHC.OFFVIS ---
Intake Vital Signs 03/10/23 09:38 Height 5 ft 6 in Weight 167 lb BMI 27.0 BP 129/81 Blood Pressure Location Lt brachial Position Sitting Respiration 14 Pulse 65 Pulse Source Pulse Oximeter Intake Visit Reasons: RT HIP INJ/PARASAG INTERLAM L5-S1 JAY Sight Effects Specialist Required: Yes Sight Effects Specialist Name: [place] #[id number] Allergies No Known Allergies [No Known Allergies*] Allergy (Verified 03/10/23 09:42) Medication List - Last Reconciled 03/10/23 by Waleska Ku LPN alirocumab (Praluent Pen) 75 mg subcut Q2W aspirin (Adult Low Dose Aspirin) 81 mg PO DAILY blood sugar diagnostic (FreeStyle Lite Strips) As directed blood-glucose meter (FreeStyle [place] Lite kit) As directed canagliflozin (Invokana) 100 mg PO DAILY cholecalciferol (vitamin D3) 25 mcg PO DAILY clopidogrel 75 mg PO DAILY cyclobenzaprine 5 mg PO TID PRN dicyclomine 20 mg PO QID famotidine 40 mg PO BID fexofenadine (Allergy Relief (fexofenadine)) 180 mg PO DAILY gabapentin 400 mg PO TID glipizide ER 2.5 mg PO DAILY hydrocortisone 2.5% (Proctozone-HC) 1 ea CA BID PRN hydroxyzine HCl 1 tab PO BEDTIME PRN lancets (TRUEplus Lancets) As directed levothyroxine 25 mcg PO QAM lidocaine 5% (Lidoderm) 1 patch topical DAILY PRN [id number] 5,000-17,000- 24,000 unit (Zenpep) 1 cap PO QID loperamide 2 mg PO BID PRN lorazepam 2 mg PO DAILY PRN metformin 1,000 mg PO BID metoprolol succinate ER 50 mg PO DAILY nitroglycerin 0.4 mg sublingual Q5M PRN oxybutynin chloride ER 5 mg PO DAILY 90 days promethazine 25 mg PO Q12H PRN risperidone 4 mg PO BEDTIME rosuvastatin 20 mg PO DAILY 90 days sertraline 100 mg PO DAILY sertraline 50 mg PO 1200 syringe with needle (BD Luer-Judy Syringe) As directed Q2 weeks tamsulosin 0.4 mg PO BEDTIME 90 days testosterone cypionate 140 mg (0.7 mL) IM Q2W 28 days HPI RT HIP INJ/PARASAG INTERLAM L5-S1 JAY HPI Details 52-year-old male presenting today for a status post right hip injection and parasagittal interlaminar L5-S1 JAY. 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 The patient reports 100% relief following the procedure for his back pain, which significantly improved. He continues to have bilateral hip pain and pain in his inguinal region, which is bothersome. He reports no relief from the last hip injection. He states that his hip pain is worse on the right side than on the left side. His pain aggravates with laying down and hip ROM movements. He had two sessions of physical therapy without any benefits and he discontinued it. Past procedures: 02/05/23: Interlaminar epidural steroid injection, L5/S1, Right parasaggital: 100% relief for back pain 02/05/23: Hip Intra-articular Injection, fluoroscopy guided, Right: no relief. 11/13/22: Transforaminal epidural steroid injection, Right L5: 50% relief. [facility] Medical History (Updated 03/10/23 @ 09:55 by Jesu Wood MD) Allergic rhinitis Anxiety Atherosclerotic cardiovascular disease BPH (benign prostatic hyperplasia) Decreased libido Elevated AFP Essential hypertension Hypogonadism Hypogonadism in male Hypogonadism in male Hypothyroid IBS (irritable bowel syndrome) COLON (nonalcoholic steatohepatitis) On beta catherine at home Other and unspecified hyperlipidemia Type 2 diabetes mellitus with unspecified complications Surgical History History of cardiac cath History of cardiac cath History of cardiac cath History of esophagogastroduodenoscopy (EGD) Hx of colonoscopy Family History Father Cardiac disease Mother Cardiac disease Social History Are you a primary healthcare sales representative to a significant other at home: No Do you presently have visiting nurse or other home services: No Alcohol intake: former Patient Tobacco Use Status: Former Tobacco user Quit Date: 3 yrs ago Tobacco use type: Cigarette Review of Systems Const All systems reviewed & are unremarkable except as noted in HPI and below Physical Exam Vital Signs: Last Vital Signs Pulse 65 03/10/23 09:38 Resp 14 03/10/23 09:38 BP 129/81 03/10/23 09:38 BMI result Body Mass Index 27.0 General: Appears afebrile. Alert and oriented. Mood and affect appropriate. Follows and participates in conversation appropriately. Respiratory effort is unlabored. Able to transition from sit to stand unassisted. Ambulates with bilaterally normal heel strike and toe off. Hip range of motion reproduces pain. Results Reviewed Results Reviewed: Mild hip osteoarthritis with possible labral degeneration. Assessment & Plan Assessment & Plan (1) Bilateral hip pain: Code(s): M25.551 - Pain in right hip; M25.552 - Pain in left hip (2) Lumbar spondylosis: Comment: L5 pars defect on CT Code(s): M47.816 - Spondylosis without myelopathy or radiculopathy, lumbar region (3) Neck pain: Code(s): M54.2 - Cervicalgia Plan Discussed repeat physical therapy vs. surgical intervention, including hip replacement surgery as possible treatment options. I will send him for three months of dedicated physical therapy to see if that is helpful for his bilateral hip pain. He will contact us as needed for his low back pain to assess need for an JAY. Scribed for Dr. Wood by Jonnie Centeno, medical research scientist, on 03/10/2023. I, Dr. Wood, have personally reviewed and agree with the information entered by the scribe. Orders: Orders PT Evaluation and Treatment Today M25.551 - Pain in right hip, M25.552 - Pain in left hip, M47.816 - Spondylosis without myelopathy or radiculopathy, lumbar region Coding Level of Care Code Est Pt Level 4 (02118) Diagnoses Bilateral hip pain M25.551; M25.552 Lumbar spondylosis M47.816 Neck pain M54.2
[2023-03-10 09:38] VITALS: BP 129/81; PULSE 65; RESP 14; BMI 27.0
== END 2023-03-10 09:57 | disposition home or self-care (01) ==
PROVIDERS: PCP Internal Medicine; Visit Provider Internal Medicine
DX: M25.551 Pain in right hip (principal); M25.552 Pain in left hip; M47.816 Spondylosis without myelopathy or radiculopathy, lumbar region; M54.2 Cervicalgia
CPT/HCPCS: 99214

== ENCOUNTER → 2023-03-10 09:34 | Outpatient (BNVA) | payer MEDICAID, SELFPAY | PROVIDERS: PCP Internal Medicine; Visit Provider Internal Medicine | DX: M25.551 Pain in right hip (principal); M25.552 Pain in left hip; M47.816 Spondylosis without myelopathy or radiculopathy, lumbar region; M54.2 Cervicalgia | CPT/HCPCS: 99212 ==

== ENCOUNTER 2023-03-30 09:28 | Emergency (ER) | payer MEDICAID, SELFPAY ==
--- NOTE | ~2023-03-30 | XR_ITS ---
EXAMINATION: XR HIP, RIGHT CLINICAL INFORMATION: Pain COMPARISON: Hip radiographs 09/02/2022 TECHNIQUE: Two views of the right hip. One view of the pelvis. FINDINGS: No acute fracture or dislocation. Sacroiliac joint spaces are maintained. Mild degenerative changes of the right hip with acetabular osteophytes and subchondral cystic change similar to prior. Left hip joint space is maintained. Soft tissues are unremarkable. XR/XR hip RT w PEL1V IMPRESSION: 1. Mild degenerative changes of the right hip similar to prior. 2. Left hip joint space is maintained.
[2023-03-30 09:33] VITALS: BP 128/84; PULSE 84; RESP 19; TEMP 36.6; O2SAT 98; BMI 26.5
--- NOTE | 2023-03-30 10:38 | ED_ITS ---
HPI - Extremity Injury (Lower) General Chief Complaint: Extremity Injury, Lower Stated Complaint: Lower abd pain rad to back Time Seen by Provider: 03/30/23 10:36 Source: patient and interpreter for the deaf Mode of arrival: ambulatory Limitations: language barrier History of Present Illness HPI Narrative: 52-year-old male with a history of coronary artery disease with multiple stents on dual platelet agents, hypertension, hyperlipidemia, diabetes presents the ER with acute on chronic right hip pain unable to sleep last night due to pain despite taking Flexeril and using medicated patches. Patient reports that he has been seen by pain management and has had several cortisone injections with continued pain. He has plans to start physical therapy this week. He has been told he may need a hip replacement. Patient denies any new injury or trauma. No radiation of pain. No numbness, tingling, weakness of the extremity. Related Data Home Medications Medication Instructions Recorded Confirmed aspirin 81 mg tablet,delayed 81 mg PO DAILY 07/19/20 03/10/23 release (Adult Low Dose Aspirin) cholecalciferol (vitamin D3) 25 25 mcg PO DAILY 07/19/20 03/10/23 mcg (1,000 unit) capsule clopidogrel 75 mg tablet 75 mg PO DAILY 07/19/20 03/10/23 cyclobenzaprine 5 mg tablet 5 mg PO TID PRN Pain 07/19/20 03/10/23 glipizide 2.5 mg tablet, extended 2.5 mg PO DAILY 07/19/20 03/10/23 release 24 hr metformin 1,000 mg tablet 1,000 mg PO BID 07/19/20 03/10/23 metoprolol succinate 50 mg 50 mg PO DAILY 07/19/20 03/10/23 tablet,extended release 24 hr risperidone 4 mg tablet 4 mg PO BEDTIME 07/19/20 03/10/23 sertraline 100 mg tablet 100 mg PO DAILY 07/19/20 03/10/23 lorazepam 2 mg tablet 2 mg PO DAILY PRN Anxiety 05/11/21 03/10/23 hydroxyzine HCl 50 mg tablet 1 tab PO BEDTIME PRN anxiety 05/16/21 03/10/23 blood sugar diagnostic (FreeStyle #10 ea 11/13/21 03/10/23 Lite Strips) canagliflozin 100 mg tablet 100 mg PO DAILY 11/13/21 03/10/23 (Invokana) gabapentin 400 mg capsule 400 mg PO TID 11/13/21 03/10/23 lancets 33 gauge (TRUEplus Lancets) #100 ea 11/13/21 03/10/23 levothyroxine 25 mcg tablet 25 mcg PO QAM 11/13/21 03/10/23 sertraline 50 mg tablet 50 mg PO 1200 03/27/22 03/10/23 blood-glucose meter (FreeStyle #1 ea 05/09/22 03/10/23 Chester Lite kit) lidocaine 5 % topical patch 1 patch topical DAILY PRN 12/13/22 03/10/23 (Lidoderm) Previous Rx's Medication Instructions Recorded oxybutynin chloride 5 mg 5 mg PO DAILY 90 days #90 tabs 05/20/22 tablet,extended release 24 hr nitroglycerin 0.4 mg sublingual 0.4 mg sublingual Q5M PRN Chest 08/22/22 tablet Pain #25 tabs syringe with needle 3 mL 21 gauge #50 ea 08/27/22 x 1 1/2 (BD Luer-Judy Syringe) promethazine 25 mg tablet 25 mg PO Q12H PRN for 09/26/22 nausea/vomiting #60 tabs loperamide 2 mg capsule 2 mg PO BID PRN for diarrhea #60 10/14/22 caps tamsulosin 0.4 mg capsule 0.4 mg PO BEDTIME 90 days #90 caps 11/15/22 testosterone cypionate 200 mg/mL 140 mg (0.7 mL) IM Q2W 28 days #2 11/15/22 intramuscular oil mL dicyclomine 20 mg tablet 20 mg PO QID for cramps #120 tabs 12/02/22 famotidine 40 mg tablet 40 mg PO BID #60 tabs 01/08/23 fexofenadine 180 mg tablet 180 mg PO DAILY #30 ea 02/12/23 (Allergy Relief (fexofenadine)) alirocumab 75 mg/mL subcutaneous 75 mg subcut Q2W #2 mL 02/27/23 pen injector (Praluent Pen) [id number] 1 cap PO QID #120 caps 03/03/23 5,000-17,000-24,000 unit capsule, delayed rel (Zenpep) rosuvastatin 20 mg tablet 20 mg PO BEDTIME #90 tabs 03/10/23 hydrocortisone 2.5 % topical cream 1 appl WI BID PRN for pain #30 03/21/23 with perineal applicator grams methocarbamol 750 mg tablet 750 mg PO Q8H PRN muscle spasm #15 03/30/23 tabs Allergies Allergy/AdvReac Type Severity Reaction Status Date / Time No Known Allergies Allergy Verified 03/30/23 09:33 [No Known Allergies*] Review of Systems Review of Systems: Yes all other systems are reviewed and are negative Constitutional: Constitutional: Reports no additional constitutional complaints, Denies body ache(s), Denies chills, Denies fever(s), Denies headach e(s) and Denies weakness Eyes: Eyes: Reports no additional eye complaints and Denies change in vision ENT: Reports system reviewed and no additional complaints, except as documented, Denies dizziness, Denies headache(s), Denies nasal congestion, Denies nasal discharge and Denies neck pain Cardiovascular: Cardiovascular: Reports no additional cardiovascular complaints, Denies chest pain, Denies leg edema and Denies dyspnea Respiratory: Respiratory: Reports no additional respiratory complaints, Denies cough and Denies dyspnea Gastrointestinal: Gastrointestinal: Reports no additional gastrointestinal complaints, Denies abdominal pain, Denies diarrhea, Denies nausea and Denies vomiting Genitourinary: Genitourinary: Denies urinary incontinence Musculoskeletal: Musculoskeletal: Reports no additional musculoskeletal complaints, Denies back pain, Reports arthralgias, Denies joint swelling, Denies limited range of motion, Denies neck pain, Denies numbness and Denies tingling Integumentary/Breasts: Skin/Breast: Reports system reviewed and no additional complaints, except as docu and Denies rash Neurologic: Reports system reviewed and no additional complaints, except as documented, Denies Abnormal speech present, Denies dizziness, Denies headache(s), Denies numbness, Denies tingling and Denies weakness [facility] Past Medical History Attestation statement: The following information was validated with the patient. Source: old records reviewed and nursing notes reviewed Medical History Hypogonadism in male On beta catherine at home Hypothyroid IBS (irritable bowel syndrome) BPH (benign prostatic hyperplasia) Anxiety Allergic rhinitis COLON (nonalcoholic steatohepatitis) Elevated AFP Decreased libido Type 2 diabetes mellitus with unspecified complications Other and unspecified hyperlipidemia Essential hypertension Atherosclerotic cardiovascular disease Hypogonadism in male Hypogonadism Surgical History History of esophagogastroduodenoscopy (EGD) Hx of colonoscopy History of cardiac cath History of cardiac cath History of cardiac cath Family History Family History Father Cardiac disease Mother Cardiac disease Social History Social History Are you a primary skin care consultant to a significant other at home: No Do you presently have visiting nurse or other home services: No Alcohol intake: former Patient Tobacco Use Status: Former Tobacco user Quit Date: 3 yrs ago Tobacco use type: Cigarette Advance Directives: No Physical Exam Vital Signs: Vital Signs: Last Vital Signs Temp 98 F 03/30/23 09:33 Pulse 84 03/30/23 09:33 Resp 19 03/30/23 09:33 BP 128/84 03/30/23 09:33 Pulse Ox 98 03/30/23 09:33 O2 Del Method Room Air 03/30/23 09:33 BMI result Body Mass Index 26.5 Const: General: cooperative, healthy appearing, comfortable and no acute distress Orientation/consciousness: patient oriented x3 Limitations: no limitations HEENT: Head: Yes normal to inspection Ears: hearing grossly normal bilaterally General nose exam: Normal external nose present Face and sinus: Yes normal facial exam Mouth: Normal oral and palatal mucosa present Throat: Yes posterior oropharynx normal Eyes: General: appearance normal, both eyes and all related structures Pupils: Equal, round and reactive pupils present Neck: Neck: Yes normal visual inspection Chest: Chest palpation & inspection: normal inspection of the chest Resp: Effort & Inspection: normal respiratory effort Auscultation: clear to auscultation bilaterally Cardio: Rate: regular rate Rhythm: regular rhythm Peripheral pulses: Peripheral pulses 2+ throughout GI: Inspection: Yes normal to inspection Palpation (GI): Soft to palpation and nontender Auscultation: normal bowel sounds Back/Spine/Pelvis: Thoracic/Lumbar Spine: thoracic and lumbar spine normal to inspection Skin: General skin exam: no rashes or lesions noted Neuro: General: patient oriented x3, no focal motor deficits and normal sensation to monofilament Cranial nerves: Yes Equal, round and reactive pupils present Cognition (Neuro): normal cognition Speech: No Abnormal speech present Gait exam (Neuro): Normal gait present Motor exam (neuro): 5/5 motor strength present throughout Extrem: Other: Patient tenderness on palpation to the right anterior and lateral hip with full passive and active range of motion. CMS intact distally. No shortening or rotation noted of the extremity General: Yes normal to inspection Medications Administered Discontinued Medications Generic Name Dose Route Start Last Admin Trade Name Jaylin PRN Reason Stop Dose Admin Methocarbamol 750 mg 03/30/23 11:04 03/30/23 12:29 Methocarbamol 750 Mg Tablet PO 03/30/23 11:05 750 mg ONCE ONE Administration Medical Decision Making Medical Decision Making [facility] Narrative: 52-year-old male with a history of coronary artery disease with multiple stents on dual platelet agents, hypertension, hyperlipidemia, diabetes presents the ER with acute on chronic right hip pain unable to sleep last night due to pain despite taking Flexeril and using medicated patches. Patient reports that he has been seen by pain management and has had several cortisone injections with continued pain. He has plans to start physical therapy this week. He has been told he may need a hip replacement. Patient denies any new injury or trauma. No radiation of pain. No numbness, tingling, weakness of the extremity. Patient tenderness on palpation to the right anterior and lateral hip with full passive and active range of motion. CMS intact distally. No shortening or rotation noted of the extremity. as there was no injury I do not feel the patient needs any additional imaging. This does appear to be a chronic problem for him. He tells me he can not take ibuprofen or NSAIDs due to being on dual platelet agents. Tylenol does not work for him. Medicated patches do not work for him Flexeril does not work for him. Offered changing the patient to Robaxin and recommend he follow-up with pain management for his chronic pain. Differential Diagnosis Differential Diagnoses: The differential diagnosis associated with the presentation includes Low concern for fracture as there is no additional injury or trauma. Low concern for septic joint with full range of motion and no reports of fever. Admission/Observation Consideration of admission/observation: Escalation of care including admission/observation considered Patient able to ambulate with a steady gait. No concern for septic joint or fracture needing orthopedic consultation or admission. Independent Interpretation I performed an independent interpretation of an: Plain X-Ray Interpretation: I independently reviewed the x-ray and agree with the radiology report Radiology Impression Discussion of test interpretation with radiology: I have reviewed the radiologist's reading. Radiologist Impression: [address] [address] XRay Report Signed Patient: Owen Montano MR#: [id number] : 1970 Acct:[id number] Age/Sex: 52 / M ADM Date: 03/30/23 Loc: HO.ED Attending Dr: Ordering Physician: Ada Mcintosh NP Date of Service: 03/30/23 Procedure(s): XR hip RT w PEL1V Accession Number(s): [id number] cc: Audrey Smith MD; Ada Mcintosh NP~ EXAMINATION: XR HIP, RIGHT CLINICAL INFORMATION: Pain COMPARISON: Hip radiographs 09/02/2022 TECHNIQUE: Two views of the right hip. One view of the pelvis. FINDINGS: No acute fracture or dislocation. Sacroiliac joint spaces are maintained. Mild degenerative changes of the right hip with acetabular osteophytes and subchondral cystic change similar to prior. Left hip joint space is maintained. Soft tissues are unremarkable. XR/XR hip RT w PEL1V IMPRESSION: 1. Mild degenerative changes of the right hip similar to prior. 2. Left hip joint space is maintained. External Record Review External record reviewed: Outpatient record reviewed pain management note Tests considered The following testing was considered but not selected: No fall or injury necessitating need for x-rays No fever or concern for septic joint needing lab Discharge Plan Discharge Clinical Impression: Right hip pain Patient Disposition: Home, Self-Care Instructions: Hip Pain (ED) Additional Instructions: Stop taking flexeril. Take robaxin instead. Continue medicated patches. Follow- up with pain management. Deje de lexi flexeril. En ott lugar, tome robaxina. Contin?e con los parches medicados. Seguimiento con el manejo del dolor. Prescriptions: New methocarbamol 750 mg tablet 750 mg PO Q8H PRN (Reason: muscle spasm) Qty: 15 0RF No Action oxybutynin chloride 5 mg tablet extended release 24hr 5 mg PO DAILY 90 Days Qty: 90 3RF nitroglycerin 0.4 mg tablet, sublingual 0.4 mg sublingual Q5M PRN (Reason: Chest Pain) Qty: 25 2RF Rx Instructions: do not exceed 3 doses per episode (DME) syringe with needle [BD Luer-Judy Syringe] 3 mL 21 gauge x 1 1/2 syringe See Rx Instructions .MEDSUPPLY Qty: 50 0RF Rx Instructions: As directed Q2 weeks promethazine 25 mg tablet 25 mg PO Q12H PRN (Reason: for nausea/vomiting) Qty: 60 6RF loperamide 2 mg capsule 2 mg PO BID PRN (Reason: for diarrhea) Qty: 60 6RF dicyclomine 20 mg tablet 20 mg PO QID Qty: 120 3RF famotidine 40 mg tablet 40 mg PO BID Qty: 60 3RF fexofenadine [Allergy Relief (fexofenadine)] 180 mg tablet 180 mg PO DAILY Qty: 30 4RF Praluent Pen 75 mg/mL pen injector 75 mg subcut Q2W Qty: 2 8RF Zenpep 5,000-17,000- 24,000 unit capsule,delayed release(DR/EC) 1 cap PO QID Qty: 120 6RF rosuvastatin 20 mg tablet 20 mg PO BEDTIME Qty: 90 2RF hydrocortisone 2.5 % cream with perineal applicator 1 appl WI BID PRN (Reason: for pain) Qty: 30 6RF hydroxyzine HCl 50 mg tablet 1 tab PO BEDTIME PRN (Reason: anxiety) sertraline 50 mg tablet 50 mg PO 1200 lorazepam 2 mg tablet 2 mg PO DAILY PRN (Reason: Anxiety) aspirin [Adult Low Dose Aspirin] 81 mg tablet,delayed release (DR/EC) 81 mg PO DAILY clopidogrel 75 mg tablet 75 mg PO DAILY glipizide 2.5 mg tablet extended release 24hr 2.5 mg PO DAILY metformin 1,000 mg tablet 1,000 mg PO BID metoprolol succinate 50 mg tablet extended release 24 hr 50 mg PO DAILY sertraline 100 mg tablet 100 mg PO DAILY Rx Instructions: 2 tablets cholecalciferol (vitamin D3) 25 mcg (1,000 unit) capsule 25 mcg PO DAILY risperidone 4 mg tablet 4 mg PO BEDTIME cyclobenzaprine 5 mg tablet 5 mg PO TID PRN (Reason: Pain) Invokana 100 mg tablet 100 mg PO DAILY (DME) lancets [TRUEplus Lancets] 33 gauge misc See Rx Instructions Not Applicable BID Qty: 100 Rx Instructions: As directed levothyroxine 25 mcg tablet 25 mcg PO QAM gabapentin 400 mg capsule 400 mg PO TID (DME) FreeStyle Lite Strips Strip See Rx Instructions Not Applicable BID Qty: 10 Rx Instructions: As directed lidocaine [Lidoderm] 5 % adhesive patch,medicated 1 patch topical DAILY PRN (DME) blood-glucose meter [FreeStyle Chester Lite] Kit See Rx Instructions .ROUTE BID Qty: 1 Rx Instructions: As directed tamsulosin 0.4 mg capsule 0.4 mg PO BEDTIME 90 Days Qty: 90 1RF testosterone cypionate 200 mg/mL oil 140 mg IM Q2W 28 Days Qty: 2 5RF Referrals: Jesu Wood MD [Physician] - 5 days Print Language: Telugu
[2023-03-30] MEDS: methocarbamoL 750 MG TABLET PO (12:29)
== END 2023-03-30 12:34 | disposition home or self-care (01) ==
PROVIDERS: Emergency Provider Emergency Medicine; PCP Internal Medicine
DX: M25.551 Pain in right hip (principal); Z79.899 Other long term (current) drug therapy
CPT/HCPCS: 73502; 99282; 99283

== ENCOUNTER 2023-04-08 09:17 | Outpatient (AMB) | payer MEDICAID, SELFPAY ==
--- NOTE | 2023-04-08 09:21 | MHC.OFFVIS ---
Intake Vital Signs 04/08/23 09:51 Height 5 ft 6 in Weight 166 lb 3.657 oz BMI 26.8 BP 135/83 Blood Pressure Location Lt brachial Position Sitting Pulse 65 Intake Visit Reasons: US results Intake Note: Patient present today in follow up of gastric emptying and CT scan results. CC: Reports dry mouth, difficulty swallowing, LUQ abdominal pain, and nausea. Denies other GI symptoms. Medical Services Assistant Required: Yes Medical Services Assistant Language: Slovenian Accompanied by: Self / Same As Patient Allergies No Known Allergies [No Known Allergies*] Allergy (Verified 04/14/23 08:54) HPI US results HPI Details Assessment & Plan (1) Nausea and vomiting: Code(s): R11.2 - Nausea with vomiting, unspecified Plan: Slovenian #Jareth, Live He has episodes of odynophagia when my mouth gets dry with solids. He has documented esophageal dysmotility and needs to practice safe swallowing. We spent quite a bit of time reviewing safe swallowing practices including chewing thoroughly and slowly, keeping water available during meals, cutting food small, and or using a soft diet. He still has the abdominal pain that we have not found a GI cause for, we are questioning if it is referred pain from his back. He is now complaining of constant nausea and he can only eat small meal portion sizes. He is unsure about how his diabetes control is in terms of his A1C. I explain this could be diabetic gastroparesis. Also, he is educated about the effect of controlling BS on the liver. He has COLON and elevated AFP. I will get a GES and CT abd and pelvis. The CT is to evaluate for his elevated AFP more closely. His last CT was about a year ago. For now I can plan no new interventions until I have more information.. ROV after GES (2) Esophageal dysmotility: Comment: 2019 EGD more esophageal dysmotility than any other problem driving was then problems with dysphagia. Patient is on dicyclomine for this Code(s): K22.4 - Dyskinesia of esophagus (3) Elevated AFP: Comment: No elevatin of HCG tumor marker, and no liver masses, Had referred him to see a physician and he was seen by Dr. Leyva who recommended only monitoring the AFP 07/23/2019?11:15:00 Result Recd:?07/29/2019?08:10:04Report:?07/23/2019 ?11:15:00 Requesting Physician:?Bailey OctoberOrdering Physician:?Bailey OctoberCopied: ALPHA-FETOPROTEIN,TUMOR MARKER NAMEVALUEREFERENCE RANGE FALPHA-FETOPROTEIN,TUMOR [id number]??(ng/mL) * 03/18/2019 ALPHA-FETOPROTEIN,TUMOR MARKER NAMEVALUEREFERENCE RANGEFALPHA-FETOPROTEIN,TUMOR MARKER 13.0?AA * 07/31/22 Alpha Fetoprotein 14.5 H Code(s): R77.2 - Abnormality of alphafetoprotein (4) COLON (nonalcoholic steatohepatitis): Comment: 2019: AST/ALT 40/108 with a normal alk-phos, negative autoimmune workup, negative hepatitis a B and C, ferritin is normal at 130, GGT not elevated at 20, hCG tumor marker < 2 Alpha fetoprotein quite elevated at greater than 12 but liver functions are normal the autoimmune workup is normal he is negative for hepatitis B and C and his ultrasound does not show any masses. It is possible that this values being driven out by his injection cholesterol medication or even that has something to do with recently had TURP, MRI 02/2019 neg 07/23/2019?ALPHA-FETOPROTEIN,TUMOR MARKER 12.8??(ng/mL) 03/18/2019 ?ALPHA-FETOPROTEIN,TUMOR MARKER 13.0?AA * CURRENT LABS. 07/31/22 Plt Count 224 Total Bilirubin 0.8 AST 17 ALT 23 Alkaline Phosphatase 90 Alpha Fetoprotein 14.5 H Ultrasound the abdomen 08/12/22? FINDINGS: PANCREAS: Obscured by bowel gas. LIVER: Normal. The liver is normal in size. The liver contour is normal. Parenchymal echogenicity is normal. No focal hepatic lesion. There is no intrahepatic biliary duct dilatation seen. GALLBLADDER: Normal. The gallbladder is physiologically distended without evidence of stones, sludge, polyps, wall thickening or pericholecystic fluid. COMMON BILE DUCT: Normal in caliber measuring 0.3 cm in diameter. RIGHT KIDNEY: Punctate echogenic foci without twinkle or shadowing may reflect a vascular reflector's. No hydronephrosis. No renal calculi or focal parenchymal lesions. The kidney measures 11.2 cm in maximum dimension. FREE FLUID: None. US/US abdomen limited IMPRESSION: ? Unremarkable sonographic appearance of the liver. ? Pancreas is obscured by bowel gas limiting evaluation. Code(s): K75.81 - Nonalcoholic steatohepatitis (COLON) (5) GERD (gastroesophageal reflux disease): Code(s): K21.9 - Gastro-esophageal reflux disease without esophagitis (6) Irritable bowel syndrome with diarrhea: Code(s): K58.0 - Irritable bowel syndrome with diarrhea (7) Type 2 diabetes mellitus with unspecified complications: Code(s): E11.8 - Type 2 diabetes mellitus with unspecified complications Orders: Orders Hemoglobin A1c Today E11.8 - Type 2 uvaldo betes mellitus wit h unspecified comp lications, R11.2 - Nausea with vomit ing, unspecified NM gastric emptyin g study Today E11.8 - Type 2 uvaldo betes mellitus wit h unspecified comp lications, R11.2 - Nausea with vomit ing, unspecified CT abdomen wo/w IV con Today K75.81 - Nonalcoho lic steatohepatiti s (COLON), R77.2 - Abnormality of alp hafetoprotein LABS: Laboratory Tests 01/22/23 09:43 Hemoglobin A1c % 7.1 GASTRIC EMPTYING STUDY 02/12/23 IMPRESSION: Normal 4-hour solid food gastric emptying study. CT OF THE ABDOMEN 02/26/23 LUNG BASES: The visualized lung bases are unremarkable. LIVER, GALLBLADDER, AND BILIARY TREE: The liver is mildly enlarged at 17.7 cm in size. No focal hepatic lesion or biliary ductal dilatation is present. The gallbladder is unremarkable with no evidence of radiopaque gallstones, gallbladder wall thickening, or obvious pericholecystic inflammatory changes. PANCREAS: Unremarkable. SPLEEN: Unremarkable. ADRENAL GLANDS: Unremarkable. KIDNEYS AND URETERS: The kidneys are normal in size, shape, and attenuation. No hydronephrosis, hydroureter, or calculi seen. No perinephric stranding. GASTROINTESTINAL TRACT: The visualized bowel is unremarkable. ABDOMINAL WALL: No significant hernia is appreciated. LYMPH NODES: No retroperitoneal lymphadenopathy. VASCULAR: Calcific plaque is present, without aneurysm. OSSEOUS STRUCTURES: Unremarkable. CT/CT abdomen wo/w IV con IMPRESSION: Mild hepatomegaly. No focal liver mass is seen. TODAY'S VISIT Slovenian #Shamar Lopez We review the results. We have been unable to uncover a GI cause for his nausea, so I think he needs to explore with his other providers if this is a medication side effect. The most suspect would be his diabetes medications Invokana and metformin, but this does not exclude others. He has had an unremarkable EGD in 2019, negative CT, negative GES for his nausea. He also has left mid abd pain not explained. But the pain is alleviated with bentyl so it is likely bowel spasm. He is worried it is not healing, and I educate him the diabetics are prone to bowel cramping r/t multiple hormonal changes. This is life limiting but not fatal. He also has a very dry mouth, and this is so bad he uses lozenges at night. This is most likely a medication s/e. He is taking loperimide, and this could be one culprit. He says his diarrhea has been less, so he will cut back the dose. He was seen by Pain Mgmt and he was told that he has a hip out of place and this causes a great deal of referred pain in the groin. He has been offered PT vs hip replacement and he opt for PT for now. ROV 6 mos. PFSH Medical History Hypogonadism in male On beta catherine at home Hypothyroid IBS (irritable bowel syndrome) BPH (benign prostatic hyperplasia) Anxiety Allergic rhinitis COLON (nonalcoholic steatohepatitis) Elevated AFP Decreased libido Type 2 diabetes mellitus with unspecified complications Other and unspecified hyperlipidemia Essential hypertension Atherosclerotic cardiovascular disease Hypogonadism in male Hypogonadism Surgical History History of esophagogastroduodenoscopy (EGD) Hx of colonoscopy History of cardiac cath History of cardiac cath History of cardiac cath Family History Father Cardiac disease Mother Cardiac disease Social History Are you a primary skin care consultant to a significant other at home: No Do you presently have visiting nurse or other home services: No Alcohol intake: former Patient Tobacco Use Status: Former Tobacco user Quit Date: 3 yrs ago Tobacco use type: Cigarette Review of Systems Const Denies fatigue, Denies fever(s), Denies night sweats, Denies poor appetite and Denies weight loss Eyes Details: glasses Reports requires corrective lenses ENT Reports Normal hearing present, Denies dental pain, Denies dysphagia, Denies hearing loss, Denies mouth pain, Denies odynophagia, Denies throat swelling, Denies tongue swelling and Reports other (Dentition adequate) Card Reports no additional complaints Resp Reports no additional complaints GI Reports abdominal pain, Denies melena, Denies bloating, Denies hematochezia, Denies constipation, Denies GI cramping, Denies dysphagia, Denies excessive flatus, Denies early satiety, Reports heartburn, Denies diarrhea, Reports nausea, Denies odynophagia, Denies vomiting and Denies hematemesis Musc Reports back pain, Reports myalgias and Reports arthralgias Skin/Breast Denies pruritus, Denies lesions, Denies rash and Denies jaundice Neuro Reports Normal hearing present and Denies Abnormal speech present Endo Denies fatigue Aller/Immun Denies throat swelling and Denies tongue swelling Physical Exam Vital Signs: Last Vital Signs Pulse 65 04/08/23 09:51 BP 135/83 04/08/23 09:51 BMI result Body Mass Index 26.8 Const General: cooperative, no acute distress, well developed and well groomed Nutritional Appearance: average body habitus and well nourished Orientation/consciousness: oriented to person, oriented to place and oriented to time Limitations: language barrier HEENT Head: Yes normocephalic and Yes atraumatic Eyes General: appearance normal, both eyes and all related structures Pupils: Equal, round and reactive pupils present Neck Neck: Yes normal visual inspection and Yes no lymphadenopathy Thyroid: Thyroid normal Resp Effort & Inspection: normal respiratory effort and able to speak in complete sentences Auscultation: clear to auscultation bilaterally Cardio Rate: regular rate Rhythm: regular rhythm Heart sounds: Normal, physiologic split S2 sound present Peripheral pulses: radial pulses present and posterior tibial pulses present GI Inspection: No distended and No Abdominal panniculus present Palpation (GI): Soft to palpation, nontender, no guarding, not rigid and No hepatosplenomegaly present Percussion: Yes normal to percussion Auscultation: normal bowel sounds Rectal Exam - Male: Yes deferred Skin General skin exam: no rashes or lesions noted, turgor normal, skin not dry, no jaundice, No spider nevi and no striae Rashes: no rashes Nails: normal Neuro General: oriented to person, oriented to place and oriented to time Cranial nerves: Yes Equal, round and reactive pupils present and Yes Normal hearing present Speech: No Abnormal speech present Extrem General: Yes normal to inspection, No clubbing, No cyanosis and No edema Psych Appearance: grossly normal and well kempt Mental Status: mental status grossly normal Speech and movement: Normal speech and movement present Affect: normal affect Attitude: cooperative Thought process: Normal thought process present and not confabulating Thought content: Normal thought content present Insight: Limited insight present (Psych) Judgement: Limited judgement present (Psych) Assessment & Plan Assessment & Plan (1) Nausea and vomiting: Code(s): R11.2 - Nausea with vomiting, unspecified Plan: [place]ian #Jessica, Shamar We review the results. We have been unable to uncover a GI cause for his nausea, so I think he needs to explore with his other providers if this is a medication side effect. The most suspect would be his diabetes medications Invokana and metformin, but this does not exclude others. He has had an unremarkable EGD in 2019, negative CT, negative GES for his nausea. He also has left mid abd pain not explained. But the pain is alleviated with bentyl so it is likely bowel spasm. He is worried it is not healing, and I educate him the diabetics are prone to bowel cramping r/t multiple hormonal changes. This is life limiting but not fatal. He also has a very dry mouth, and this is so bad he uses lozenges at night. This is most likely a medication s/e. He is taking loperimide, and this could be one culprit. He says his diarrhea has been less, so he will cut back the dose. He was seen by Pain Mgmt and he was told that he has a hip out of place and this causes a great deal of referred pain in the groin. He has been offered PT vs hip replacement and he opt for PT for now. ROV 6 mos. (2) GERD (gastroesophageal reflux disease): Code(s): K21.9 - Gastro-esophageal reflux disease without esophagitis (3) COLON (nonalcoholic steatohepatitis): Comment: 2019: AST/ALT 40/108 with a normal alk-phos, negative autoimmune workup, negative hepatitis a B and C, ferritin is normal at 130, GGT not elevated at 20, hCG tumor marker < 2 Alpha fetoprotein quite elevated at greater than 12 but liver functions are normal the autoimmune workup is normal he is negative for hepatitis B and C and his ultrasound does not show any masses. It is possible that this values being driven out by his injection cholesterol medication or even that has something to do with recently had TURP, MRI 02/2019 neg 07/23/2019?ALPHA-FETOPROTEIN,TUMOR MARKER 12.8??(ng/mL) 03/18/2019 ?ALPHA-FETOPROTEIN,TUMOR MARKER 13.0?AA * CURRENT LABS. 07/31/22 Plt Count 224 Total Bilirubin 0.8 AST 17 ALT 23 Alkaline Phosphatase 90 Alpha Fetoprotein 14.5 H Ultrasound the abdomen 08/12/22? FINDINGS: PANCREAS: Obscured by bowel gas. LIVER: Normal. The liver is normal in size. The liver contour is normal. Parenchymal echogenicity is normal. No focal hepatic lesion. There is no intrahepatic biliary duct dilatation seen. GALLBLADDER: Normal. The gallbladder is physiologically distended without evidence of stones, sludge, polyps, wall thickening or pericholecystic fluid. COMMON BILE DUCT: Normal in caliber measuring 0.3 cm in diameter. RIGHT KIDNEY: Punctate echogenic foci without twinkle or shadowing may reflect a vascular reflector's. No hydronephrosis. No renal calculi or focal parenchymal lesions. The kidney measures 11.2 cm in maximum dimension. FREE FLUID: None. US/US abdomen limited IMPRESSION: ? Unremarkable sonographic appearance of the liver. ? Pancreas is obscured by bowel gas limiting evaluation. Code(s): K75.81 - Nonalcoholic steatohepatitis (COLON) (4) Irritable bowel syndrome with diarrhea: Code(s): K58.0 - Irritable bowel syndrome with diarrhea (5) Hemorrhoids: Comment: Has bleeding when he pushes, continues to use Proctosol cream to Code(s): K64.9 - Unspecified hemorrhoids (6) Tubular adenoma of colon: Comment: 2020=ta REPEAT 5 YEARS, 2019 scoped, sessile repeat 1-2 years, 1-2 cm in size with 3-4 smaller polyps Code(s): D12.6 - Benign neoplasm of colon, unspecified (7) Esophageal dysmotility: Comment: 2018 EGD more esophageal dysmotility than any other problem driving was then problems with dysphagia. Patient is on dicyclomine for this Code(s): K22.4 - Dyskinesia of esophagus (8) Elevated AFP: Comment: No elevatin of HCG tumor marker, and no liver masses, Had referred him to see a physician and he was seen by Dr. Leyva who recommended only monitoring the AFP 07/23/2019?11:15:00 Result Recd:?07/29/2019?08:10:04Report:?07/23/2019 ?11:15:00 Requesting Physician:?Mary Kay AvalosOrdering Physician:?Mary Kay AvalosCopied: Mary Kay ALPHA-FETOPROTEIN,TUMOR MARKER NAMEVALUEREFERENCE RANGE FALPHA-FETOPROTEIN,TUMOR [id number]??(ng/mL) * 03/18/2019 ALPHA-FETOPROTEIN,TUMOR MARKER NAMEVALUEREFERENCE RANGEFALPHA-FETOPROTEIN,TUMOR MARKER 13.0?AA * 07/31/22 Alpha Fetoprotein 14.5 H Code(s): R77.2 - Abnormality of alphafetoprotein Medications: Refilled dicyclomine 20 mg PO QID 120 tabs 3RF for cramps K22.4 - Dyskinesia of esophagus famotidine 40 mg PO BID 60 tabs 6RF usnaak-umvkvvja-kmxghxa 5,000-17,000- 24,000 unit (Zenpep) 1 cap PO QID 120 caps 6RF K58.0 - Irritable bowel syndrome with diarrhea promethazine 25 mg PO Q12H PRN 60 tabs 6RF for nausea/vomiting Coding Level of Care Code Est Pt Level 3 (20744) Diagnoses Nausea and vomiting R11.2 GERD (gastroesophageal reflux disease) K21.9 COLON (nonalcoholic steatohepatitis) K75.81 Irritable bowel syndrome with diarrhea K58.0 Hemorrhoids K64.9 Tubular adenoma of colon D12.6 Esophageal dysmotility K22.4 Elevated AFP R77.2
[2023-04-08 09:51] VITALS: BP 135/83; PULSE 65; BMI 26.8
== END 2023-04-08 10:22 | disposition home or self-care (01) ==
PROVIDERS: PCP Internal Medicine; Visit Provider Nurse Practitioner
DX: R11.2 Nausea with vomiting, unspecified (principal); K21.9 Gastro-esophageal reflux disease without esophagitis; K75.81 Nonalcoholic steatohepatitis (NASH); K58.0 Irritable bowel syndrome with diarrhea; K64.9 Unspecified hemorrhoids; D12.6 Benign neoplasm of colon, unspecified; K22.4 Dyskinesia of esophagus; R77.2 Abnormality of alphafetoprotein
CPT/HCPCS: 99213

== ENCOUNTER → 2023-04-08 09:17 | Outpatient (BNVA) | payer MEDICAID, SELFPAY | PROVIDERS: PCP Internal Medicine; Visit Provider Nurse Practitioner | DX: K22.4 Dyskinesia of esophagus (principal); R11.2 Nausea with vomiting, unspecified; R77.2 Abnormality of alphafetoprotein; K21.9 Gastro-esophageal reflux disease without esophagitis; K75.81 Nonalcoholic steatohepatitis (NASH); K58.0 Irritable bowel syndrome with diarrhea; K64.9 Unspecified hemorrhoids; D12.6 Benign neoplasm of colon, unspecified | CPT/HCPCS: 99212 ==

== ENCOUNTER 2023-04-14 08:28 | Outpatient (AMB) | payer MEDICAID, SELFPAY ==
--- NOTE | 2023-04-14 08:50 | MHC.OFFVIS ---
Intake Vital Signs 04/14/23 08:53 Height 5 ft 6 in Weight 166 lb BMI 26.8 BP 121/79 Blood Pressure Location Lt brachial Position Sitting Respiration 14 Pulse 65 Pulse Source Pulse Oximeter Pulse Oximetry (%) 98 Oxygen Delivery Method Room Air Intake Visit Reasons: 3 Month Follow Up Batch Freezer Required: Yes Batch Freezer Name: Belinda #[id number] Allergies No Known Allergies [No Known Allergies*] Allergy (Verified 04/14/23 08:54) Medication List - Last Reconciled 04/14/23 by Waleska Ku LPN alirocumab (Praluent Pen) 75 mg subcut Q2W aspirin (Adult Low Dose Aspirin) 81 mg PO DAILY blood sugar diagnostic (FreeStyle Lite Strips) As directed blood-glucose meter (FreeStyle [place] Lite kit) As directed canagliflozin (Invokana) 100 mg PO DAILY cholecalciferol (vitamin D3) 25 mcg PO DAILY clopidogrel 75 mg PO DAILY dicyclomine 20 mg PO QID famotidine 40 mg PO BID fexofenadine (Allergy Relief (fexofenadine)) 180 mg PO DAILY gabapentin 400 mg PO TID glipizide ER 2.5 mg PO DAILY hydrocortisone 2.5% 1 appl [place] BID PRN hydroxyzine HCl 1 tab PO BEDTIME PRN lancets (TRUEplus Lancets) As directed levothyroxine 25 mcg PO QAM lidocaine 5% (Lidoderm) 1 patch topical DAILY PRN edllnq-cuzhuruc-mntgwiz 5,000-17,000- 24,000 unit (Zenpep) 1 cap PO QID loperamide 2 mg PO BID PRN lorazepam 2 mg PO DAILY PRN metformin 1,000 mg PO BID methocarbamol 750 mg PO Q8H metoprolol succinate ER 50 mg PO DAILY nitroglycerin 0.4 mg sublingual Q5M PRN oxybutynin chloride ER 5 mg PO DAILY 90 days promethazine 25 mg PO Q12H PRN risperidone 4 mg PO BEDTIME rosuvastatin 20 mg PO BEDTIME sertraline 100 mg PO DAILY sertraline 50 mg PO 1200 syringe with needle (BD Luer-Judy Syringe) As directed Q2 weeks tamsulosin 0.4 mg PO BEDTIME 90 days testosterone cypionate 140 mg (0.7 mL) IM Q2W 28 days HPI 3 Month Follow Up HPI Details 52-year-old male who presents today to the office for a follow-up after three months. The patient still reports bilateral hip pain (R>L). He has tried physical therapy since the last visit with minimal improvement. His pain starts to return once he reaches home from physical therapy. He has tried cortisone injections for the back and hip in the past. He is currently taking methocarbamol 750 mg tid which he finds helpful. Past procedures: 02/05/23: Interlaminar epidural steroid injection, L5/S1, Right parasaggital: 100% relief for back pain 02/05/23: Hip Intra-articular Injection, fluoroscopy guided, Right: no relief. 11/13/22: Transforaminal epidural steroid injection, Right L5: 50% relief. [facility] Medical History Hypogonadism in male On beta catherine at home Hypothyroid IBS (irritable bowel syndrome) BPH (benign prostatic hyperplasia) Anxiety Allergic rhinitis COLON (nonalcoholic steatohepatitis) Elevated AFP Decreased libido Type 2 diabetes mellitus with unspecified complications Other and unspecified hyperlipidemia Essential hypertension Atherosclerotic cardiovascular disease Hypogonadism in male Hypogonadism Surgical History History of esophagogastroduodenoscopy (EGD) Hx of colonoscopy History of cardiac cath History of cardiac cath History of cardiac cath Family History Father Cardiac disease Mother Cardiac disease Social History Are you a primary critical care registered nurse to a significant other at home: No Do you presently have visiting nurse or other home services: No Alcohol intake: former Patient Tobacco Use Status: Former Tobacco user Quit Date: 3 yrs ago Tobacco use type: Cigarette Review of Systems Const All systems reviewed & are unremarkable except as noted in HPI and below Physical Exam Vital Signs: Last Vital Signs Pulse 65 04/14/23 08:53 Resp 14 04/14/23 08:53 BP 121/79 04/14/23 08:53 Pulse Ox 98 04/14/23 08:53 Oxygen Delivery Method Room Air 04/14/23 08:53 BMI result Body Mass Index 26.8 General: Appears afebrile. Alert and oriented. Mood and affect appropriate. Follows and participates in conversation appropriately. Respiratory effort is unlabored. Able to transition from sit to stand unassisted. Ambulates with bilaterally normal heel strike and toe off. 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 Will schedule him for right intra-articular hip injection, lateral approach. Discussed the risks and benefits of the procedure with the patient in detail. All questions were answered. The patient is on board with the plan. Justification for interventional therapy: ? Patient with average pain > 6/10 ? Patient has exhausted conservative therapy Scribed for Dr. Wood by Jonnie Centeno, medical receptionist assistant, on 04/14/2023. I, Dr. Wood, have personally reviewed and agree with the information entered by the scribe. Medications: New methocarbamol 750 mg PO Q12H 60 tabs 3RF Coding Level of Care Code Est Pt Level 3 (82904) Diagnoses Bilateral hip pain M25.551; M25.552
[2023-04-14 08:53] VITALS: BP 121/79; PULSE 65; RESP 14; O2SAT 98; BMI 26.8
== END 2023-04-14 09:09 | disposition home or self-care (01) ==
PROVIDERS: PCP Internal Medicine; Visit Provider Internal Medicine
DX: M25.551 Pain in right hip (principal); M25.552 Pain in left hip
CPT/HCPCS: 99213

== ENCOUNTER → 2023-04-14 08:28 | Outpatient (BNVA) | payer MEDICAID, SELFPAY | PROVIDERS: PCP Internal Medicine; Visit Provider Internal Medicine | DX: M25.551 Pain in right hip (principal); M25.552 Pain in left hip | CPT/HCPCS: 99212 ==

== ENCOUNTER → 2023-04-16 08:28 | Outpatient (REF) | payer MEDICAID, SELFPAY | LOC: HO.SL 08:28 | PROVIDERS: PCP Internal Medicine; Visit Provider Internal Medicine | DX: G47.33 Obstructive sleep apnea (adult) (pediatric) (principal) | CPT/HCPCS: 95806 ==

== ENCOUNTER → 2023-04-16 08:47 | Outpatient (BNV) | payer MEDICAID, SELFPAY | PROVIDERS: PCP Internal Medicine; Visit Provider Internal Medicine | DX: G47.33 Obstructive sleep apnea (adult) (pediatric) (principal) | CPT/HCPCS: 95806 ==

== ENCOUNTER 2023-04-30 07:11 | Outpatient (REF) | payer MEDICAID, SELFPAY ==
[2023-05-04 14:14] LABS: Testosterone, Total 892 ng/dL (250-1100)
== END 2023-04-30 07:12 | disposition home or self-care (01) ==
LOC: HO.LAB 07:11
PROVIDERS: Visit Provider Urology
DX: E29.1 Testicular hypofunction (principal)
CPT/HCPCS: 36415; 84153; 84403; 85027

== ENCOUNTER 2023-05-07 06:04 | Outpatient (REF) | payer MEDICAID, SELFPAY ==
--- NOTE | ~2023-05-07 | FL_ITS ---
EXAMINATION: XR FLUOROSCOPY WITH IMAGES CLINICAL INFORMATION: Pain in right hip. COMPARISON: None available. TECHNIQUE: Fluoroscopy Supervised By: Dr. Jesu Wood. Fluoroscopy Time: 0.4 minutes. Cumulative Dose: 9.24 mGy. DAP: 1.06 Gycm2. Images: 1. FINDINGS: Image demonstrates needle placement and contrast injection over the right hip joint FL/FL guidance in treatment room IMPRESSION: Fluoroscopy guidance for pain management procedure
== END 2023-05-07 06:05 | disposition home or self-care (01) ==
LOC: CF 06:04
PROVIDERS: Visit Provider Internal Medicine
DX: M25.551 Pain in right hip (principal); M25.552 Pain in left hip
CPT/HCPCS: 20610; J1040; J1100; J2795; J3301; Q9967

== ENCOUNTER 2023-05-07 07:27 | Outpatient (AMB) | payer MEDICAID, SELFPAY ==
[2023-05-07 07:32] VITALS: BP 106/72; PULSE 57; RESP 14; O2SAT 97
--- NOTE | 2023-05-07 07:32 | A.OFFVIS_ITS ---
Intake Vital Signs 05/07/23 07:32 05/07/23 08:21 BP 106/72 110/76 Blood Pressure Location Lt brachial Lt brachial Position Sitting Sitting Respiration 14 14 Pulse 57 62 Pulse Source Pulse Oximeter Pulse Oximeter Pulse Oximetry (%) 97 97 Oxygen Delivery Method Room Air Room Air Intake Visit Reasons: RIGHT INTRA-ARTICULAR HIP INJECTION Allergies No Known Allergies [No Known Allergies*] Allergy (Verified 05/07/23 07:33) HPI RIGHT INTRA-ARTICULAR HIP INJECTION HPI Details Patient presents for scheduled procedure. Denies any recent cough, cold, infection, fever or other significant changes in medical history since last office visit. FORMERLY [facility], [facility]1983 Medical History Hypogonadism in male On beta catherine at home Hypothyroid IBS (irritable bowel syndrome) BPH (benign prostatic hyperplasia) Anxiety Allergic rhinitis COLON (nonalcoholic steatohepatitis) Elevated AFP Decreased libido Type 2 diabetes mellitus with unspecified complications Other and unspecified hyperlipidemia Essential hypertension Atherosclerotic cardiovascular disease Hypogonadism in male Hypogonadism Surgical History History of esophagogastroduodenoscopy (EGD) Hx of colonoscopy History of cardiac cath History of cardiac cath History of cardiac cath Family History Father Cardiac disease Mother Cardiac disease Social History Are you a primary progressive care nurse to a significant other at home: No Do you presently have visiting nurse or other home services: No Alcohol intake: former Patient Tobacco Use Status: Former Tobacco user Quit Date: 3 yrs ago Tobacco use type: Cigarette Physical Exam Vital Signs: Last Vital Signs Pulse 62 05/07/23 08:21 Resp 14 05/07/23 08:21 BP 110/76 05/07/23 08:21 Pulse Ox 97 05/07/23 08:21 Oxygen Delivery Method Room Air 05/07/23 08:21 Office Procedures Joint Injection/Drain Joint Injection/Drain Details: Hip Intra-articular Injection, fluoroscopy guided, right After informed written consent was obtained, the patient was placed in the left lateral position. Pre-procedure oxygen saturation, heart rate, and blood pressure were recorded. The skin was prepped with Chloroprep, and draped in a sterile fashion. With the use of fluroscopy the hip joint was identified. With a 25-gauge 1.5 hypodermic needle 0.75% lidocaine was injected subcutaneously over the entry site. A 22-gauge 3.5 spinal needle was then advanced toward the joint capsule. Once in position, and after negative aspiration, 0.5mL of Omnipaque was injected outlining the joint capsule followed by injection of 40mg Kenalog mixed with 0.5% lidocaine (3mL total). There was no evidence of paresthesias throughout needle placement. The stylet was replaced and then the needle was withdrawn. The patient tolerated the procedure well and there was no evidence of procedural complications. EBL: <1cc Coding 33597 - Large joint Procedure code (CPT) selection complete Assessment & Plan Assessment & Plan (1) Bilateral hip pain: Code(s): M25.551 - Pain in right hip; M25.552 - Pain in left hip Plan Patient is status post right intra-articular hip injection using lateral eloy ross. Patient tolerated procedure well and was discharged home in stable condition with discharge instructions. All questions were answered. We will follow-up via telephone or in clinic to assess response to therapy. A follow-up appointment was made during today's visit. Orders: Orders FL guidance in treatment room Today M25.551 - Pain in right hip, M25.552 - Pain in left hip Coding Level of Care Code Procedure Only Diagnoses Bilateral hip pain M25.551; M25.552 CPT Codes Coding - 61043 Large joint: 47318 - Large joint ([id number])
[2023-05-07 08:21] VITALS: BP 110/76; PULSE 62; RESP 14; O2SAT 97
== END 2023-05-07 08:17 | disposition home or self-care (01) ==
LOC: HO.PMCPRC 07:27
PROVIDERS: PCP Internal Medicine; Visit Provider Internal Medicine
DX: M25.551 Pain in right hip (principal); M25.552 Pain in left hip
CPT/HCPCS: 20610; 77002

== ENCOUNTER 2023-05-15 08:16 | Outpatient (AMB) | payer MEDICAID, SELFPAY ==
--- NOTE | 2023-05-15 08:48 | MHC.OFFVIS ---
Intake Intake Visit Reasons: 6M CBC/PSA/Testosterone(set) Intake Note: Patient is present for LABS Results: 04/30/23- PSA: 0.79 TOTAL TESTOSTERONE: 892 04/30/23 Urology Med: Oxybutynin, Tamsulosin, Testosterone Antibiotic Allergy: None Blood Thinner: Plavix, Aspirin Shrimp Trawler Required: Yes Allergies No Known Allergies [No Known Allergies*] Allergy (Verified 05/07/23 07:33) HPI HPI Comments History of Present Illness Details Owen is Trinidadian-speaking male. He is a patient of Dr. Holman. He is seen for the following urologic conditions - hypogonadism - bladder outlet obstruction Telemedicine Evaluation 15 min Consultation [employer] Video attempted Trinidadian translation provided by qualified medical scheduler Current lab work appropriate Injection for 0.7 ml every 2 weeks Six month follow-up Has sleep issues with lack of energy Hypogonadism Longstanding Testosterone replacement started in [place] Continues with 1.0 cc 200 milligram/mL injection every 2 weeks - injection day Friday - laboratory day Friday - knows to do labs mid cycle Laboratories - 05/10 T 604, PSA 0.7, Hct 47.5, 11/09 T 1171 0.8 53, 05/11 T 1012 52, 11/10 T 388 H52, 05/11 T 890 P 0.8 Bladder outlet obstruction Initial weakness of stream and incomplete emptying Good response to tamsulosin Controls nocturia PFSH Medical History Hypogonadism in male On beta catherine at home Hypothyroid IBS (irritable bowel syndrome) BPH (benign prostatic hyperplasia) Anxiety Allergic rhinitis COLON (nonalcoholic steatohepatitis) Elevated AFP Decreased libido Type 2 diabetes mellitus with unspecified complications Other and unspecified hyperlipidemia Essential hypertension Atherosclerotic cardiovascular disease Hypogonadism in male Hypogonadism Surgical History History of esophagogastroduodenoscopy (EGD) Hx of colonoscopy History of cardiac cath History of cardiac cath History of cardiac cath Family History Father Cardiac disease Mother Cardiac disease Social History Are you a primary animal daycare provider to a significant other at home: No Do you presently have visiting nurse or other home services: No Alcohol intake: former Patient Tobacco Use Status: Former Tobacco user Quit Date: 3 yrs ago Tobacco use type: Cigarette Review of Systems Const All systems reviewed & are unremarkable except as noted in HPI and below Reports no additional complaints Resp Reports no additional complaints GI Reports no additional complaints Reports as per HPI Musc Reports no additional complaints Physical Exam Telemedicine evaluation Appropriate responses Regular breathing rate and rhythm HEENT Head: Yes normal to inspection Ears: hearing grossly normal bilaterally Eyes General: appearance normal, both eyes and all related structures Neck Neck: Yes normal visual inspection Chest Chest palpation & inspection: normal inspection of the chest Resp Effort & Inspection: normal respiratory effort and able to speak in complete sentences Assessment & Plan Assessment & Plan (1) Hypogonadism in male: Code(s): E29.1 - Testicular hypofunction (2) Bladder outlet obstruction: Code(s): N32.0 - Bladder-neck obstruction Plan Six month follow-up Orders: Orders Complete Blood Count no Diff 6 Months E29.1 - Testicular hypofunction Testosterone, Total 6 Months E29.1 - Testicular hypofunction Prostate Specific Antigen 6 Months E29.1 - Testicular hypofunction Medications: Refilled testosterone cypionate 140 mg (0.7 mL) IM Q2W 2 mL 5RF 28 days E29.1 - Testicular hypofunction tamsulosin 0.4 mg PO BEDTIME 90 caps 1RF 90 days E29.1 - Testicular hypofunction, N39.41 - Urge incontinence Patient Instructions: Imaging studies, laboratory and physical exam results were discussed and reviewed in detail. No major barriers to patient understanding were identified. An opportunity to ask questions regarding the treatment plan was provided. All questions were answered. The patient expressed understanding and agreement with the above treatment plan. The patient is aware they should contact our office by phone for worsening of their current condition or the appearance of new urologic symptoms. Compliance is encouraged with any medications and followup testing that is ordered. It is a privilege to participate in the urologic care of your patient. If you have any questions or concerns regarding treatment for the above conditions, or other urologic issues, please do not hesitate to contact me. The office telephone contact is [phone]. This note is constructed using voice recognition software. While every effort has been made to ensure accuracy advanced practice rn errors may have been included. Yours sincerely, Dr Eliezer Rivas MD, [facility] - Urology Providers of Expert, Compassionate Care for the Genitourinary System Telehealth Telehealth Location of provider rendering services: practice address Location of patient: address on file Patient Identification confirmed using: Name, : Yes Telehealth method: video Patient verbally consented to treatment: Yes Patient verbally consented to billing insurance company: Yes Patient informed of any privacy concerns related to visit: Yes Coding Level of Care Code Tele Est Pt Level 4 (09208) Diagnoses Hypogonadism in male E29.1 Bladder outlet obstruction N32.0
== END 2023-05-15 10:30 | disposition home or self-care (01) ==
LOC: HO.HUSH 08:16
PROVIDERS: PCP Internal Medicine; Visit Provider Urology
DX: E29.1 Testicular hypofunction (principal); N32.0 Bladder-neck obstruction
CPT/HCPCS: 99214

== ENCOUNTER → 2023-05-15 08:16 | Outpatient (BNVA) | payer MEDICAID, SELFPAY | PROVIDERS: PCP Internal Medicine; Visit Provider Urology ==

== ENCOUNTER 2023-05-19 09:42 | Outpatient (AMB) | payer MEDICAID, SELFPAY ==
[2023-05-19 09:49] VITALS: BP 102/70; PULSE 60; O2SAT 99; BMI 26.6
--- NOTE | 2023-05-19 09:49 | MHC.OFFVIS ---
Intake Vital Signs 05/19/23 09:49 Height 5 ft 6 in Weight 165 lb BMI 26.6 BP 102/70 Blood Pressure Location Lt brachial Position Sitting Pulse 60 Pulse Source Pulse Oximeter Pulse Oximetry (%) 99 Oxygen Delivery Method Room Air Intake Visit Reasons: sleep disorder Intake Note: pt is here as a new patient for follow up of sleep study Motorcycle Tester Required: Yes Motorcycle Tester Name: Preeti Allergies No Known Allergies [No Known Allergies*] Allergy (Verified 05/19/23 10:25) Do you need a note to return to daycare/school/sports/work: No HPI sleep disorder HPI Details 52 YEARS OLD GENTLEMAN IS BEING SEEN FOR THE 1ST TIME IN RELATION TO OBSTRUCTIVE SLEEP APNEA. He does not have any chronic pulmonary disease. But he does have coronary artery disease having had angioplasty and stent placements, while in [place]. Patient does have history of poor sleep at night, with frequent awakening and shortness of breath, for the past. Few years He feels tired during the daytime. He has been told that he does snore loudly at night. His refrigeration engineer Dr. Driscoll ordered the sleep study. The results will be described below. In the past he has had sleep study but does not know when and where, most likely in [place], but was not started on CPAP. This gentleman is of relatively normal weight. He does have associated problems including bipolar disorder/depression/diabetes mellitus/hypertension/GERD symptoms. He denies smoking of or excessive use of alcohol. FORMERLY [facility] Medical History (Updated 05/19/23 @ 12:05 by Desi Bach MD) Nocturnal hypoxemia SARTHAK (obstructive sleep apnea) Hypogonadism in male On beta catherine at home Hypothyroid IBS (irritable bowel syndrome) BPH (benign prostatic hyperplasia) Anxiety Allergic rhinitis COLON (nonalcoholic steatohepatitis) Elevated AFP Decreased libido Type 2 diabetes mellitus with unspecified complications Other and unspecified hyperlipidemia Essential hypertension Atherosclerotic cardiovascular disease Hypogonadism in male Hypogonadism Surgical History History of esophagogastroduodenoscopy (EGD) Hx of colonoscopy History of cardiac cath History of cardiac cath History of cardiac cath Family History Father Cardiac disease Mother Cardiac disease Social History Are you a primary health care facilities inspector to a significant other at home: No Do you presently have visiting nurse or other home services: No Alcohol intake: former Patient Tobacco Use Status: Former Tobacco user Quit Date: 3 yrs ago Tobacco use type: Cigarette Review of Systems Const All systems reviewed & are unremarkable except as noted in HPI and below Reports snoring (moderate ) Eyes Reports no additional complaints ENT Reports no additional complaints Card Denies chest pain (Intermittent angina), Denies irregular heart rhythm and Denies leg edema Resp Denies cough, Reports snoring (moderate ) and Denies wheezing GI Reports heartburn (GERD symptoms) Reports no additional complaints Musc Reports no additional complaints Skin/Breast Reports system reviewed and no additional complaints, except as documented Neuro Reports no additional complaints Psych Reports depression and Reports mood swings Endo Reports no additional complaints Kenneth/Lymph Reports no additional complaints Aller/Immun Reports no additional complaints and Denies wheezing Physical Exam Vital Signs: Last Vital Signs Pulse 60 05/19/23 09:49 BP 102/70 05/19/23 09:49 Pulse Ox 99 05/19/23 09:49 Oxygen Delivery Method Room Air 05/19/23 09:49 BMI result Body Mass Index 26.6 Const General: healthy appearing, comfortable, no acute distress, alert and awake Orientation/consciousness: patient oriented x3 HEENT Other: FACIAL FEATURES ARE, QUITE DISTINCT. HE HAS RELATIVELY FLAT NO O'S AND FACE, WITH REGRESSION OF THE LOWER JAW , CAUSING RETROGANTHIA Head: Yes normal to inspection General nose exam: No nasal polyps present and No nasal discharge present Face and sinus: Yes sinuses nontender Mouth: oropharynx abnormals (NARROW, WITH MALLAMPATI CLASS 3) Teeth and gingiva: other (RETROGANTHIA OF THE LOWER JAW) Throat: Yes posterior oropharynx normal Eyes General: appearance normal, both eyes and all related structures Neck Neck: Yes normal visual inspection, Yes no lymphadenopathy, Yes trachea midline and Yes no JVD Thyroid: Thyroid normal Chest Chest palpation & inspection: normal inspection of the chest, normal palpation of entire chest wall and no tenderness Resp Effort & Inspection: normal respiratory effort Auscultation: clear to auscultation bilaterally, no crackles and no wheezes Cardio Palpation: normal PMI Rate: regular rate Rhythm: regular rhythm Heart sounds: no gallops and no murmurs Peripheral pulses: Peripheral pulses 2+ throughout GI Palpation (GI): Soft to palpation, nontender, No hepatosplenomegaly present and no masses Auscultation: normal bowel sounds Back/Spine/Pelvis Thoracic/Lumbar Spine: thoracic and lumbar spine normal to inspection Skin General skin exam: no rashes or lesions noted Neuro General: patient oriented x3 and no focal motor deficits Cranial nerves: Yes CN's II-XII intact bilaterally Extrem General: Yes normal to inspection, Yes no clubbing, cyanosis or edema and Yes no calf tenderness Psych Appearance: grossly normal and well kempt Speech and movement: Normal speech and movement present Results Reviewed Results Reviewed: HOME SLEEP TEST ON 04/16/2023, RESULTS REVIEWED WITH THE PATIENT . TOTAL SLEEP TIME AHI 10, SUPINE POSITION AHI A 17, LT LATERAL POSITION AHI 11, AND RIGHT SIDE AHI 4.5 THERE WAS ALSO NOCTURNAL HYPOXEMIA WITH O2 TO DARY 76 AND O2 SAT BELOW 88% FOR 11 MINUTES. Assessment & Plan Assessment & Plan (1) SARTHAK (obstructive sleep apnea): Comment: THIS GENTLEMAN IS OF NORMAL WEIGHT. 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 IT IS A PERMANENT MALFORMATION AND , ANY ATTEMPT FURTHER WEIGHT LOSS WOULD NOT HELP IN REDUCING HIS SLEEP APNEA. WE HAD A DETAILED DISCUSSION AND I EXPLAINED TO THE PATIENT TO FRENCH-SPEAKING LITHOGRAPHIC STRIPPER, NORMALLY THE MILD SLEEP APNEA MAY BE TREATED WITH CONSERVATIVE MEASURES , ESPECIALLY WITH POSITION THERAPY IN HIS CASE. HOWEVER HE HAS MULTIPLE COMORBIDITIES ESPECIALLY , CORONARY ARTERY DISEASE DIABETES, DEPRESSION , AND USE OF CPAP SHOULD BE HELPFUL IN HIS CASE. AFTER FULL EXPLANATION HE IS WILLING TO USE CPAP. I AM SENDING THE ORDERS TO DME SUPPLIER, FOR HIS CPAP DEVICE WITH AUTO PAP MODE AND PRESSURE SETTING 6-16 CM USING FULLFACE MASK. Code(s): G47.33 - Obstructive sleep apnea (adult) (pediatric) (2) Nocturnal hypoxemia: Comment: HE HAS MILD NOCTURNAL HYPOXEMIA, PART OF SARTHAK. HOPEFULLY WITH THE USE OF CPAP THIS WILL BE TAKEN CARE OF. Code(s): G47.34 - Idiopathic sleep related nonobstructive alveolar hypoventilation Coding Level of Care Code New Pt Level 3 (83531) Diagnoses SARTHAK (obstructive sleep apnea) G47.33 Nocturnal hypoxemia G47.34
== END 2023-05-19 10:23 | disposition home or self-care (01) ==
PROVIDERS: PCP Internal Medicine; Visit Provider Internal Medicine
DX: G47.33 Obstructive sleep apnea (adult) (pediatric) (principal); G47.34 Idiopathic sleep related nonobstructive alveolar hypoventilation
CPT/HCPCS: 99213

== ENCOUNTER → 2023-05-19 09:42 | Outpatient (BNVA) | payer MEDICAID, SELFPAY | PROVIDERS: PCP Internal Medicine; Visit Provider Internal Medicine | DX: G47.33 Obstructive sleep apnea (adult) (pediatric) (principal); G47.34 Idiopathic sleep related nonobstructive alveolar hypoventilation | CPT/HCPCS: 99212 ==

== ENCOUNTER 2023-06-06 08:51 | Outpatient (AMB) | payer MEDICAID, SELFPAY ==
--- NOTE | 2023-06-06 09:07 | A.OFFVIS_ITS ---
Intake Vital Signs 06/06/23 09:08 Height 5 ft 6 in Weight 165 lb BMI 26.6 Blood Pressure Location Lt brachial Position Sitting Respiration 12 Pulse 73 Pulse Source Pulse Oximeter Pulse Oximetry (%) 97 Oxygen Delivery Method Room Air Intake Visit Reasons: RIGHT INTRA-ARTICULAR HIP INJ/CONFIRMED Actor Understudy Required: Yes Actor Understudy Name: Belinda #[id number] Allergies No Known Allergies [No Known Allergies*] Allergy (Verified 06/06/23 09:09) Medication List - Last Reconciled 06/06/23 by Waleska Ku LPN alirocumab (Praluent Pen) 75 mg subcut Q2W aspirin (Adult Low Dose Aspirin) 81 mg PO DAILY blood sugar diagnostic (FreeStyle Lite Strips) As directed blood-glucose meter (FreeStyle [place] Lite kit) As directed canagliflozin (Invokana) 100 mg PO DAILY cholecalciferol (vitamin D3) 25 mcg PO DAILY clopidogrel 75 mg PO DAILY dicyclomine 20 mg PO QID famotidine 40 mg PO BID fexofenadine (Allergy Relief (fexofenadine)) 180 mg PO DAILY gabapentin 400 mg PO TID glipizide ER 2.5 mg PO DAILY hydrocortisone 2.5% 1 appl VA BID PRN hydroxyzine HCl 1 tab PO BEDTIME PRN lancets (TRUEplus Lancets) As directed levothyroxine 25 mcg PO QAM lidocaine 5% (Lidoderm) 1 patch topical DAILY PRN ckfcuk-icdkpeye-jnkkiwo 5,000-17,000- 24,000 unit (Zenpep) 1 cap PO QID loperamide 2 mg PO BID PRN lorazepam 2 mg PO DAILY PRN metformin 1,000 mg PO BID methocarbamol 750 mg PO Q12H metoprolol succinate ER 50 mg PO DAILY nitroglycerin 0.4 mg sublingual Q5M PRN oxybutynin chloride ER 5 mg PO DAILY 90 days promethazine 25 mg PO Q12H PRN risperidone 4 mg PO BEDTIME rosuvastatin 20 mg PO BEDTIME sertraline 100 mg PO DAILY sertraline 50 mg PO 1200 syringe with needle (BD Luer-Judy Syringe) As directed Q2 weeks tamsulosin 0.4 mg PO BEDTIME 90 days testosterone cypionate 140 mg (0.7 mL) IM Q2W 28 days HPI RIGHT INTRA-ARTICULAR HIP INJ/CONFIRMED HPI Details 52-year-old male who presents today to t he office for a right int raarticular hip injection. A certified marketing operations coordinator was present during the visit. The patient reports >50% relief following the procedure. He states that his hip pain was improved. He states that his hip pain is bothersome. He is currently on physical therapy for hip pain. He is amenable to proceed with left sided hip injection. He reports shoulder pain as well but hip is more bothersome. Past procedures: 05/07/23: Hip Intra-articular Injection, fluoroscopy guided, right lateral approach: >50% relief. 02/05/23: Interlaminar epidural steroid injection, L5/S1, Right parasaggital: 100% relief for back pain 02/05/23: Hip Intra-articular Injection, fluoroscopy guided, Right anterior approach: no relief. 11/13/22: Transforaminal epidural steroi d injection, Right L5: 50% relief. [facility] Medical History (Updated 06/06/23 @ 11:29 by Jesu Wood MD) Nocturnal hypoxemia SARTHAK (obstructive sleep apnea) Hypogonadism in male On beta catherine at home Hypothyroid IBS (irritable bowel syndrome) BPH (benign prostatic hyperplasia) Anxiety Allergic rhinitis COLON (nonalcoholic steatohepatitis) Elevated AFP Decreased libido Type 2 diabetes mellitus with unspecified complications Other and unspecified hyperlipidemia Essential hypertension Atherosclerotic cardiovascular disease Hypogonadism in male Hypogonadism Surgical History History of esophagogastroduodenoscopy (EGD) Hx of colonoscopy History of cardiac cath History of cardiac cath History of cardiac cath Family History Father Cardiac disease Mother Cardiac disease Social History Are you a primary health care / medical job titles to a significant other at home: No Do you presently have visiting nurse or other home services: No Alcohol intake: former Patient Tobacco Use Status: Former Tobacco user Quit Date: 3 yrs ago Tobacco use type: Cigarette Review of Systems Const All systems reviewed & are unremarkable except as noted in HPI and below Physical Exam Vital Signs: Last Vital Signs Pulse 73 06/06/23 09:08 Resp 12 06/06/23 09:08 Pulse Ox 97 06/06/23 09:08 Oxygen Delivery Method Room Air 06/06/23 09:08 BMI result Body Mass Index 26.6 General: Appears afebrile. Alert and oriented. Mood and affect appropriate. Follows and participates in conversation appropriately. Respiratory effort is unlabored. Able to transition from sit to stand unassisted. Ambulates with bilaterally normal heel strike and toe off. Left hip range of motion reproduces pain. Results Reviewed Results Reviewed: No imaging is available for review. Assessment & Plan Assessment & Plan (1) Bilateral hip pain: Code(s): M25.551 - Pain in right hip; M25.552 - Pain in left hip (2) Rotator cuff tendinitis: Code(s): M75.80 - Other shoulder lesions, unspecified shoulder Plan Will schedule him for left intra-articular hip injection, lateral approach, fluoroscopy guided. Discussed the risks and benefits of the procedure with the patient in detail. All questions were answered. The patient is on board with the plan. Will schedule him for a left subacromial bursa shoulder injection for shoulder pain. We will schedule this injection at the time of follow up after the hip injection. Justification for interventional therapy: ? Patient with average pain > 6/10 ? Patient has exhausted conservative therapy Scribed for Dr. Wood by Jonnie Centeno, medical reception specialist, on 06/06/2023. I, Dr. Wood, have personally reviewed and agree with the information entered by the scribe. Coding Level of Care Code Est Pt Level 4 (80093) Diagnoses Bilateral hip pain M25.551; M25.552 Rotator cuff tendinitis M75.80
[2023-06-06 09:08] VITALS: PULSE 73; RESP 12; O2SAT 97; BMI 26.6
== END 2023-06-06 09:35 | disposition home or self-care (01) ==
PROVIDERS: PCP Internal Medicine; Visit Provider Internal Medicine
DX: M25.551 Pain in right hip (principal); M25.552 Pain in left hip; M75.80 Other shoulder lesions, unspecified shoulder
CPT/HCPCS: 99214

== ENCOUNTER → 2023-06-06 08:51 | Outpatient (BNVA) | payer MEDICAID, SELFPAY | PROVIDERS: PCP Internal Medicine; Visit Provider Internal Medicine | DX: M25.551 Pain in right hip (principal); M25.552 Pain in left hip; M75.80 Other shoulder lesions, unspecified shoulder | CPT/HCPCS: 99212 ==

== ENCOUNTER 2023-07-07 09:00 | Outpatient (RCR) | payer MEDICAID, SELFPAY ==
--- NOTE | 2023-04-02 11:54 | MHC.PT.EP ---
[facility] [place] Office [place] Office [place] Office [address] Bud Bell [address] [phone] F: [phone] F: [phone] F: [phone] F: [phone] Physical Therapy Plan of Care Date of Evaluation: 04/02/23 Date of Surgery: Diagnosis: pain in bilateral hips, spondylosis without myeolopathy or radiculopathy (MD Dx) lumbar disc protrusion L5/S1 with R radiculopathy (PT Dx) Assessment: Patient is a [place]ese speaking, 52 y.o. male who is referred to PT by Dr. Jesu Wood MD with Dx of pain in bilateral hips, spondylosis without myeolopathy or radiculopathy. PT diagnosis is lumbar disc protrusion L5/S1 with R radiculopathy as confirmed on MRI. Patient impairments include pain, radicular R LE sxs, limited lumbar ROM, weakness in R LE, poor posture, gait abnormality. Patient current functional limitations are walk long distances, stand to shower, step into shower, bend/squat, difficulty with stairs, washing dishes/cleaning, sleeping. Patient will benefit from skilled PT to address aforementioned impairments and functional limitations to meet established goals. Frequency and Duration: The patient will be seen 2x/week for 4 weeks Short Term Goals: 2 weeks Patient demonstrates consistency and independence with HEP to self manage symptoms. Patient presents with improved postured in sitting without cues. [facility] Goals: 4 weeks Patient presents with increased R hip flexion 4+/5 to be able to ascend/descend 1 flight of stairs reciprocally. Patient presents with increased R hip glute med strength 4/5 to be able to ambulate short distances without AD with good form. Treatment Plan: Modalities to reduce pain, spasms and effusion. Manual therapy to restore motion and function. Therapeutic exercise to improve strength and flexibility. Neuromuscular re-education for posture and balance. Therapeutic activities to return to functional activities of daily living. Electronically signed by: Suhail Lopez, PT, DPT Please sign and return to therapist. Thank you for your referral.
--- NOTE | 2023-07-07 13:17 | MHC.PT.DC ---
[facility] [place] [facility] [place] [facility] [place] [facility] [address] [place] [address] [phone] F: [phone] F: [phone] F: [phone] F: [phone] Physical Therapy Discharge Report Diagnosis: pain in bilateral hips, spondylosis without myeolopathy or radiculopathy (MD Dx) lumbar disc protrusion L5/S1 with R radiculopathy (PT Dx) Date of Surgery: Date of Evaluation: 04/02/23 Date of Discharge: 07/07/23 Treatments to Date: 20 Cancellations to Date: No Shows to Date: Discharge Status: Achieved Goals Improved Function Independent with HEP Discharge Summary: Owen presents with signficantly improvement in ROM, strength, gait and mobility since starting PT. He had relief with mechanical lumbar traction and with core and LE strengthening exercises as well as extension bias program. He reports pain as a limiting factor and is receiving R hip injection next week. He completed all approved PT visits via his insurance and is discharged from PT at this time, can continue with independent HEP. Electronically signed by: Suhail Lopez, PT, DPT Please sign and return to therapist. Thank you for your referral.
== END 2023-07-07 13:18 | disposition home or self-care (01) ==
LOC: HO.PT 09:00
PROVIDERS: PCP Internal Medicine; Visit Provider Internal Medicine
DX: M25.551 Pain in right hip (principal); M25.552 Pain in left hip; M47.816 Spondylosis without myelopathy or radiculopathy, lumbar region
CPT/HCPCS: 97012; 97014; 97110; 97116; 97140; 97162; 97530

== ENCOUNTER 2023-07-16 05:34 | Outpatient (REF) | payer MEDICAID, SELFPAY | END 2023-07-16 05:35 | disposition home or self-care (01) | LOC: CF 05:34 | PROVIDERS: Visit Provider Internal Medicine | DX: Z13.89 Encounter for screening for other disorder (principal) ==

== ENCOUNTER 2023-07-16 07:40 | Emergency (ER) | payer MEDICAID, SELFPAY ==
[2023-07-16 07:48] VITALS: BP 104/66; PULSE 88; RESP 18; TEMP 36.6; O2SAT 97; BMI 26.9
[2023-07-16 08:18] LABS: IDNOW Serial# 08D9AD1C; Strep A Nucleic Acid Negative (Negative)
[2023-07-16 08:42] LABS: Influenza A PCR NEGATIVE (Negative); Influenza B PCR NEGATIVE (Negative); Resp Syncy Virus RNA Qual PCR NEGATIVE (Negative); SARS COV2 PCR INHOUSE POSITIVE (Negative)
--- NOTE | 2023-07-16 09:28 | ED.GENADULT ---
HPI - General Adult General Chief complaint: Upper Respiratory Symptoms Stated complaint: Body aches Time Seen by Provider: 07/16/23 09:19 Source: patient Mode of arrival: ambulatory Limitations: no limitations History of Present Illness HPI narrative: 52-year-old male presents with fatigue, malaise, myalgias, congestion, headache, sore throat, cough times a week. sick with similar symptoms. Patient feeling better than he was a week ago however still wants to get seen. Denies chest pain, shortness of breath, nausea, vomiting, abdominal pain, vision changes, dizziness. Related Data Home Medications Medication Instructions Recorded Confirmed aspirin 81 mg tablet,delayed 81 mg PO DAILY 07/19/20 06/06/23 release (Adult Low Dose Aspirin) cholecalciferol (vitamin D3) 25 25 mcg PO DAILY 07/19/20 06/06/23 mcg (1,000 unit) capsule clopidogrel 75 mg tablet 75 mg PO DAILY 07/19/20 06/06/23 glipizide 2.5 mg tablet, extended 2.5 mg PO DAILY 07/19/20 06/06/23 release 24 hr metformin 1,000 mg tablet 1,000 mg PO BID 07/19/20 06/06/23 metoprolol succinate 50 mg 50 mg PO DAILY 07/19/20 06/06/23 tablet,extended release 24 hr risperidone 4 mg tablet 4 mg PO BEDTIME 07/19/20 06/06/23 sertraline 100 mg tablet 100 mg PO DAILY 07/19/20 06/06/23 lorazepam 2 mg tablet 2 mg PO DAILY PRN Anxiety 05/11/21 06/06/23 hydroxyzine HCl 50 mg tablet 1 tab PO BEDTIME PRN anxiety 05/16/21 06/06/23 blood sugar diagnostic (FreeStyle #10 ea 11/13/21 06/06/23 Lite Strips) canagliflozin 100 mg tablet 100 mg PO DAILY 11/13/21 06/06/23 (Invokana) gabapentin 400 mg capsule 400 mg PO TID 11/13/21 06/06/23 lancets 33 gauge (TRUEplus Lancets) #100 ea 11/13/21 06/06/23 levothyroxine 25 mcg tablet 25 mcg PO QAM 11/13/21 06/06/23 sertraline 50 mg tablet 50 mg PO 1200 03/27/22 06/06/23 blood-glucose meter (FreeStyle #1 ea 05/09/22 06/06/23 [place] Lite kit) lidocaine 5 % topical patch 1 patch topical DAILY PRN 12/13/22 06/06/23 (Lidoderm) Previous Rx's Medication Instructions Recorded nitroglycerin 0.4 mg sublingual 0.4 mg sublingual Q5M PRN Chest 08/22/22 tablet Pain #25 tabs syringe with needle 3 mL 21 gauge #50 ea 08/27/22 x 1 1/2 (BD Luer-Judy Syringe) alirocumab 75 mg/mL subcutaneous 75 mg subcut Q2W #2 mL 02/27/23 pen injector (Praluent Pen) rosuvastatin 20 mg tablet 20 mg PO BEDTIME #90 tabs 03/10/23 hydrocortisone 2.5 % topical cream 1 appl [place] BID PRN for pain #30 03/21/23 with perineal applicator grams dicyclomine 20 mg tablet 20 mg PO QID for cramps #120 tabs 04/08/23 famotidine 40 mg tablet 40 mg PO BID #60 tabs 04/08/23 mvponv-nfrhvkft-qzccutz 1 cap PO QID #120 caps 04/08/23 5,000-17,000-24,000 unit capsule, delayed rel (Zenpep) promethazine 25 mg tablet 25 mg PO Q12H PRN for 04/08/23 nausea/vomiting #60 tabs methocarbamol 750 mg tablet 750 mg PO Q12H #60 tabs 04/14/23 oxybutynin chloride 5 mg 5 mg PO DAILY 90 days #90 tabs 04/14/23 tablet,extended release 24 hr loperamide 2 mg capsule 2 mg PO BID PRN for diarrhea #60 04/29/23 caps tamsulosin 0.4 mg capsule 0.4 mg PO BEDTIME 90 days #90 caps 05/15/23 testosterone cypionate 200 mg/mL 140 mg (0.7 mL) IM Q2W 28 days #2 05/15/23 intramuscular oil mL fexofenadine 180 mg tablet 180 mg PO DAILY #30 ea 07/08/23 (Allergy Relief (fexofenadine)) Allergies Allergy/AdvReac Type Severity Reaction Status Date / Time No Known Allergies Allergy Verified 07/16/23 07:47 [No Known Allergies*] Review of Systems Review of Systems: Constitutional : No Weight loss, No Fever, No Chills, + Fatigue, + Malaise ENT/Mouth : + sore throat, No Rhinorrhea Eyes: No Eye Pain, No Swelling, No Redness Cardiovascular : No Chest Pain, No SOB, No Dyspnea on Exertion, No Orthopnea, No Edema, No Palpitations Respiratory : + Cough, No Sputum, No Wheezing Gastrointestinal : No Nausea, No Vomiting, No Diarrhea, No Constipation, No abdominal Pain, No Hematochezia, No Melena Genitourinary : No Dysuria, No Urinary Frequency, No Hematuria, Musculoskeletal : No joint pain, + Myalgias, No Joint Swelling Skin : No Skin Lesions, No rash Neuro : No Weakness, No Numbness, No Dizziness, + Headache Psych : No Anxiety/Panic, No Depression Yes all other systems are reviewed and are negative [facility] Past Medical History Attestation statement: The following information was validated with the patient. Source: old records reviewed and nursing notes reviewed Medical History Nocturnal hypoxemia SARTHAK (obstructive sleep apnea) Hypogonadism in male On beta catherine at home Hypothyroid IBS (irritable bowel syndrome) BPH (benign prostatic hyperplasia) Anxiety Allergic rhinitis COLON (nonalcoholic steatohepatitis) Elevated AFP Decreased libido Type 2 diabetes mellitus with unspecified complications Other and unspecified hyperlipidemia Essential hypertension Atherosclerotic cardiovascular disease Hypogonadism in male Hypogonadism Surgical History History of esophagogastroduodenoscopy (EGD) Hx of colonoscopy History of cardiac cath History of cardiac cath History of cardiac cath Family History Family History Father Cardiac disease Mother Cardiac disease Social History Social History Are you a primary day care center director to a significant other at home: No Do you presently have visiting nurse or other home services: No Alcohol intake: former Patient Tobacco Use Status: Former Tobacco user Quit Date: 3 yrs ago Tobacco use type: Cigarette Smoked in Last 30 Days: No Use of substances other than those prescribed or required for medical reasons: No Advance Directives: No Advance Directives Information Provided: No Physical Exam ED Vital Signs: Vital Signs - 24 hr 07/16/23 07:48 Temperature 97.8 F Pulse Rate 88 Respiratory Rate 18 Blood Pressure 104/66 Pulse Oximetry 97 Oxygen Delivery Method Room Air BMI result Body Mass Index 26.9 vss Appearance: Alert.? Oriented X3.? No acute distress.? Head: Normocephalic, atraumatic, no step-offs or deformities Eyes: Pupils equal, round and reactive to light.? ENT: Pharynx normal.? Neck: Normal inspection.? Neck supple.? CVS: Normal heart rate and rhythm.? Pulses normal.? Respiratory: No respiratory distress.? Breath sounds normal.? Abdomen: Soft and nontender.? Skin: Skin warm and dry.? Normal skin color.? Normal skin turgor.? Extremities: No lower extremity edema.? No calf ttp. 5/5 strength to bilateral upper and lower extremities Neuro: Oriented X 3.? No motor deficit.? No sensory deficit. CN 2-12 intact Course Reevaluation(s) Reevaluation #1: Patient COVID positive. Not a candidate for Paxlovid due to length of symptoms. Educated patient on diagnosis and treatment plan, answered all question, patient verbalizes understanding. At this time patient will be discharged home, advised to return with new or worsening symptoms. Educated on worrisome signs and symptoms and when to return. At this time I feel comfortable discharge home. Time: 09:42 Medical Decision Making Medical Decision Making [facility] Narrative: 52-year-old male presents with fatigue, malaise, myalgias, sore throat, cough times a week Physical exam benign This is likely viral illness versus bronchitis versus allergies. Unlikely pneumonia, PE, ACS, retropharyngeal abscess, peritonsillar abscess, epiglottitis, threat to airway. Headache likely viral unlikely intracranial hemorrhage, stroke, posterior stroke. Plan viral Differential Diagnosis Differential Diagnoses: The differential diagnosis associated with the presentation includes This is likely viral illness versus bronchitis versus allergies. Unlikely pneumonia, PE, ACS, retropharyngeal abscess, peritonsillar abscess, epiglottitis, threat to airway. Headache likely viral unlikely intracranial hemorrhage, stroke, posterior stroke. Admission/Observation Consideration of admission/observation: Escalation of care including admission/observation considered Lab Data [facility] Lab Attestation statement: I reviewed the patient's lab results. Labs: Lab Results 07/16/23 Range/Units 07:58 Influenza Type A (PCR) NEGATIVE (Negative) Influenza Type B (PCR) NEGATIVE (Negative) RSV RNA Qual (PCR) NEGATIVE (Negative) SARS-CoV-2 RNA (RT-PCR) POSITIVE A (Negative) S. pyogenes GrpA CALIN Negative (Negative) Discharge Plan Discharge Clinical Impression: COVID-19 Patient Disposition: Home, Self-Care Instructions: COVID-19 (Coronavirus Disease 2019) (ED) Additional Instructions: Take your medications as prescribed. If you were prescribed antibiotics today, it is important that you take your medication to their entirety, do not skip any doses, do not finish them early. Today you tested positive for COVID-19. Take Ibuprofen or Tylenol as needed for fevers or body aches. Quarantine for 5 days and ensure you wear a mask. After 5 days you should wear a mask for 5 days after that. Practice social distancing and good hand hygiene. Drink plenty of fluids. Follow-up with your primary care provider this week. Return to the emergency department with new or worsening symptoms. In case of emergency call 911 You can purchase a pulse oximeter from your local pharmacy or grocery store, and monitor your oxygen saturation if it goes below 94% you should return to the emergency department for further evaluation. Prescriptions: No Action nitroglycerin 0.4 mg tablet, sublingual 0.4 mg sublingual Q5M PRN (Reason: Chest Pain) Qty: 25 2RF Rx Instructions: do not exceed 3 doses per episode (DME) syringe with needle [BD Luer-Judy Syringe] 3 mL 21 gauge x 1 1/2 syringe See Rx Instructions .MEDSUPPLY Qty: 50 0RF Rx Instructions: As directed Q2 weeks Praluent Pen 75 mg/mL pen injector 75 mg subcut Q2W Qty: 2 8RF rosuvastatin 20 mg tablet 20 mg PO BEDTIME Qty: 90 2RF hydrocortisone 2.5 % cream with perineal applicator 1 appl [place] BID PRN (Reason: for pain) Qty: 30 6RF oxybutynin chloride 5 mg tablet extended release 24hr 5 mg PO DAILY 90 Days Qty: 90 1RF loperamide 2 mg capsule 2 mg PO BID PRN (Reason: for diarrhea) Qty: 60 6RF fexofenadine [Allergy Relief (fexofenadine)] 180 mg tablet 180 mg PO DAILY Qty: 30 4RF hydroxyzine HCl 50 mg tablet 1 tab PO BEDTIME PRN (Reason: anxiety) sertraline 50 mg tablet 50 mg PO 1200 lorazepam 2 mg tablet 2 mg PO DAILY PRN (Reason: Anxiety) aspirin [Adult Low Dose Aspirin] 81 mg tablet,delayed release (DR/EC) 81 mg PO DAILY clopidogrel 75 mg tablet 75 mg PO DAILY glipizide 2.5 mg tablet extended release 24hr 2.5 mg PO DAILY metformin 1,000 mg tablet 1,000 mg PO BID metoprolol succinate 50 mg tablet extended release 24 hr 50 mg PO DAILY sertraline 100 mg tablet 100 mg PO DAILY Rx Instructions: 2 tablets cholecalciferol (vitamin D3) 25 mcg (1,000 unit) capsule 25 mcg PO DAILY risperidone 4 mg tablet 4 mg PO BEDTIME Invokana 100 mg tablet 100 mg PO DAILY (DME) lancets [TRUEplus Lancets] 33 gauge misc See Rx Instructions Not Applicable BID Qty: 100 Rx Instructions: As directed levothyroxine 25 mcg tablet 25 mcg PO QAM gabapentin 400 mg capsule 400 mg PO TID (DME) FreeStyle Lite Strips Strip See Rx Instructions Not Applicable BID Qty: 10 Rx Instructions: As directed lidocaine [Lidoderm] 5 % adhesive patch,medicated 1 patch topical DAILY PRN (DME) blood-glucose meter [FreeStyle [place] Lite] Kit See Rx Instructions .ROUTE BID Qty: 1 Rx Instructions: As directed testosterone cypionate 200 mg/mL oil 140 mg IM Q2W 28 Days Qty: 2 5RF tamsulosin 0.4 mg capsule 0.4 mg PO BEDTIME 90 Days Qty: 90 1RF dicyclomine 20 mg tablet 20 mg PO QID Qty: 120 3RF famotidine 40 mg tablet 40 mg PO BID Qty: 60 6RF Zenpep 5,000-17,000- 24,000 unit capsule,delayed release(DR/EC) 1 cap PO QID Qty: 120 6RF promethazine 25 mg tablet 25 mg PO Q12H PRN (Reason: for nausea/vomiting) Qty: 60 6RF methocarbamol 750 mg tablet 750 mg PO Q12H Qty: 60 3RF Referrals: Audrey Smith MD [Primary Care Provider] - 2 days
--- NOTE | 2023-07-16 09:30 | PC.NURSE ---
Pt reports cough, body aches, cough x1 week , feels better than he did a few days ago. abd soft non tender. skin pwd
== END 2023-07-16 10:00 | disposition home or self-care (01) ==
PROVIDERS: Emergency Provider Emergency Medicine Emergency Medical Services; PCP Internal Medicine
DX: U07.1 COVID-19 (principal); I10 Essential (primary) hypertension; E11.9 Type 2 diabetes mellitus without complications
CPT/HCPCS: 0241U; 87651; 99283; 99284

== ENCOUNTER 2023-07-31 09:02 | Outpatient (AMB) | payer MEDICAID, SELFPAY ==
--- NOTE | 2023-07-31 09:22 | MHC.OFFVIS ---
Intake Vital Signs 07/31/23 09:27 Height 5 ft 6 in Weight 168 lb BMI 27.1 BP 92/60 Blood Pressure Location Lt brachial Pulse 65 Pulse Source Pulse Oximeter Pulse Oximetry (%) 97 Oxygen Delivery Method Room Air Intake Visit Reasons: sleep disorder Intake Note: pt is here for follow up and states he is feeling pretty good. He is using cpap, need to send script for supplies. Strength And Conditioning Coach Required: Yes Strength And Conditioning Coach Name: #[id number] Allergies No Known Allergies [No Known Allergies*] Allergy (Verified 07/31/23 09:41) Medication List - Last Reconciled 07/31/23 by Desi Bach MD alirocumab (Praluent Pen) 75 mg subcut Q2W aspirin (Adult Low Dose Aspirin) 81 mg PO DAILY blood sugar diagnostic (FreeStyle Lite Strips) As directed blood-glucose meter (FreeStyle [place] Lite kit) As directed canagliflozin (Invokana) 100 mg PO DAILY cholecalciferol (vitamin D3) 25 mcg PO DAILY clopidogrel 75 mg PO DAILY dicyclomine 20 mg PO QID famotidine 40 mg PO BID fexofenadine (Allergy Relief (fexofenadine)) 180 mg PO DAILY gabapentin 400 mg PO TID glipizide ER 2.5 mg PO DAILY hydrocortisone 2.5% 1 appl [place] BID PRN hydroxyzine HCl 1 tab PO BEDTIME PRN lancets (TRUEplus Lancets) As directed levothyroxine 25 mcg PO QAM lidocaine 5% (Lidoderm) 1 patch topical DAILY PRN lyajgy-vpitlqyp-fyuywku 5,000-17,000- 24,000 unit (Zenpep) 1 cap PO QID loperamide 2 mg PO BID PRN lorazepam 2 mg PO DAILY PRN metformin 1,000 mg PO BID methocarbamol 750 mg PO Q12H metoprolol succinate ER 50 mg PO DAILY nitroglycerin 0.4 mg sublingual Q5M PRN oxybutynin chloride ER 5 mg PO DAILY 90 days promethazine 25 mg PO Q12H PRN risperidone 4 mg PO BEDTIME rosuvastatin 20 mg PO BEDTIME sertraline 100 mg PO DAILY sertraline 50 mg PO 1200 syringe with needle (BD Luer-Judy Syringe) As directed Q2 weeks tamsulosin 0.4 mg PO BEDTIME 90 days testosterone cypionate 140 mg (0.7 mL) IM Q2W 28 days Do you need a note to return to daycare/school/sports/work: No HPI sleep disorder HPI Details This 52 years old gentleman recently diagnosed to have obstructive sleep apnea, 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 He is using his CPAP regularly every night and sleeps well, He has no issues with the mask or CPAP device. He claims that his sleep is better, He remains more energetic and refreshed during the daytime. Weight is not an issue in his case. [facility] Medical History Nocturnal hypoxemia SARTHAK (obstructive sleep apnea) Hypogonadism in male On beta catherine at home Hypothyroid IBS (irritable bowel syndrome) BPH (benign prostatic hyperplasia) Anxiety Allergic rhinitis COLON (nonalcoholic steatohepatitis) Elevated AFP Decreased libido Type 2 diabetes mellitus with unspecified complications Other and unspecified hyperlipidemia Essential hypertension Atherosclerotic cardiovascular disease Hypogonadism in male Hypogonadism Surgical History History of esophagogastroduodenoscopy (EGD) Hx of colonoscopy History of cardiac cath History of cardiac cath History of cardiac cath Family History Father Cardiac disease Mother Cardiac disease Social History Are you a primary manager home healthcare to a significant other at home: No Do you presently have visiting nurse or other home services: No Alcohol intake: former Patient Tobacco Use Status: Former Tobacco user Quit Date: 3 yrs ago Tobacco use type: Cigarette Review of Systems Const All systems reviewed & are unremarkable except as noted in HPI and below Reports snoring (moderate ) Eyes Reports no additional complaints ENT Reports no additional complaints Card Denies chest pain (Intermittent angina), Denies irregular heart rhythm and Denies leg edema Resp Denies cough, Reports snoring (moderate ) and Denies wheezing GI Reports heartburn (GERD symptoms) Reports no additional complaints Musc Reports no additional complaints Skin/Breast Reports system reviewed and no additional complaints, except as documented Neuro Reports no additional complaints Psych Reports depression and Reports mood swings Endo Reports no additional complaints Kenneth/Lymph Reports no additional complaints Aller/Immun Reports no additional complaints and Denies wheezing Physical Exam Vital Signs: Last Vital Signs Pulse 65 07/31/23 09:27 BP 92/60 07/31/23 09:27 Pulse Ox 97 07/31/23 09:27 Oxygen Delivery Method Room Air 07/31/23 09:27 BMI result Body Mass Index 27.1 Const General: healthy appearing, comfortable, no acute distress, alert and awake Orientation/consciousness: patient oriented x3 HEENT Other: FACIAL FEATURES ARE, QUITE DISTINCT. HE HAS RELATIVELY FLAT NO O'S AND FACE, WITH REGRESSION OF THE LOWER JAW , CAUSING RETROGANTHIA Head: Yes normal to inspection General nose exam: No nasal polyps present and No nasal discharge present Face and sinus: Yes sinuses nontender Mouth: oropharynx abnormals (NARROW, WITH MALLAMPATI CLASS 3) Teeth and gingiva: other (RETROGANTHIA OF THE LOWER JAW) Throat: Yes posterior oropharynx normal Eyes General: appearance normal, both eyes and all related structures Neck Neck: Yes normal visual inspection, Yes no lymphadenopathy, Yes trachea midline and Yes no JVD Thyroid: Thyroid normal Chest Chest palpation & inspection: normal inspection of the chest, normal palpation of entire chest wall and no tenderness Resp Effort & Inspection: normal respiratory effort Auscultation: clear to auscultation bilaterally, no crackles and no wheezes Cardio Palpation: normal PMI Rate: regular rate Rhythm: regular rhythm Heart sounds: no gallops and no murmurs Peripheral pulses: Peripheral pulses 2+ throughout GI Palpation (GI): Soft to palpation, nontender, No hepatosplenomegaly present and no masses Auscultation: normal bowel sounds Back/Spine/Pelvis Thoracic/Lumbar Spine: thoracic and lumbar spine normal to inspection Skin General skin exam: no rashes or lesions noted Neuro General: patient oriented x3 and no focal motor deficits Cranial nerves: Yes CN's II-XII intact bilaterally Extrem General: Yes normal to inspection, Yes no clubbing, cyanosis or edema and Yes no calf tenderness Psych Appearance: grossly normal and well kempt Speech and movement: Normal speech and movement present Results Reviewed Results Reviewed: Compliance report for the last 30 nights is reviewed. He has used 26/30 nights, 87%. Average use per night 5 hours 33 minutes. Pressure used mostly 12-14 cm. There is a minimal degree of air leak. Residual AHI 3.7 Assessment & Plan Assessment & Plan (1) SARTHAK (obstructive sleep apnea): Comment: THIS GENTLEMAN IS OF NORMAL WEIGHT. 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 IT IS A PERMANENT MALFORMATION AND , ANY ATTEMPT FURTHER WEIGHT LOSS WOULD NOT HELP IN REDUCING HIS SLEEP APNEA. He has used the CPAP regularly and is very compliant. He claims that his sleep is definitely better, and he is determined to continue using the CPAP every day. Code(s): G47.33 - Obstructive sleep apnea (adult) (pediatric) Plan: Commended for his good compliance and is advised to keep on using CPAP regularly, try to use more than 5-6 hours per night. (2) Nocturnal hypoxemia: Comment: HE HAS MILD NOCTURNAL HYPOXEMIA, PART OF SARTHAK. As he is using the CPAP regularly I think his hypoxemia should be are corrected. Code(s): G47.34 - Idiopathic sleep related nonobstructive alveolar hypoventilation Plan: as above Coding Level of Care Code Est Pt Level 3 (46696) Diagnoses SARTHAK (obstructive sleep apnea) G47.33 Nocturnal hypoxemia G47.34
[2023-07-31 09:27] VITALS: BP 92/60; PULSE 65; O2SAT 97; BMI 27.1
== END 2023-07-31 09:45 | disposition home or self-care (01) ==
PROVIDERS: PCP Internal Medicine; Referring Provider Internal Medicine; Visit Provider Internal Medicine
DX: G47.33 Obstructive sleep apnea (adult) (pediatric) (principal); G47.34 Idiopathic sleep related nonobstructive alveolar hypoventilation
CPT/HCPCS: 99213

== ENCOUNTER → 2023-07-31 09:02 | Outpatient (BNVA) | payer MEDICAID, SELFPAY | PROVIDERS: PCP Internal Medicine; Visit Provider Internal Medicine | DX: G47.33 Obstructive sleep apnea (adult) (pediatric) (principal); G47.34 Idiopathic sleep related nonobstructive alveolar hypoventilation | CPT/HCPCS: 99212 ==

== ENCOUNTER 2023-08-07 06:06 | Outpatient (REF) | payer MEDICAID, SELFPAY ==
--- NOTE | ~2023-08-07 | FL_ITS ---
EXAMINATION: Intraoperative fluoroscopy CLINICAL INFORMATION: Left hip pain COMPARISON: None. TECHNIQUE: Intraoperative fluoroscopy was provided for use by Dr. Wood. A total of 1 image was saved to PACS. A radiologist was not present during imaging. Today's dictation is only for administrative purposes to document intraoperative fluoroscopic usage. TOTAL FLUOROSCOPIC TIME: 0.0 minutes DAP: 0.0203 mGy-cm FL/FL guidance in treatment room FINDINGS~\^^ Intraoperative fluoroscopy provided for use by Dr. Wood. Please see operative note for detailed findings.
== END 2023-08-07 06:07 | disposition home or self-care (01) ==
LOC: CF 06:06
PROVIDERS: Visit Provider Internal Medicine
DX: M25.551 Pain in right hip (principal); M25.552 Pain in left hip
CPT/HCPCS: 20610; J2795; J3301; Q9967

== ENCOUNTER 2023-08-07 09:06 | Outpatient (AMB) | payer MEDICAID, SELFPAY ==
[2023-08-07 09:10] VITALS: BP 102/62; PULSE 72; RESP 12; O2SAT 98
--- NOTE | 2023-08-07 09:10 | A.OFFVIS_ITS ---
Intake Vital Signs 08/07/23 09:10 08/07/23 10:39 BP 102/62 100/70 Blood Pressure Location Lt brachial Lt brachial Position Sitting Sitting Respiration 12 12 Pulse 72 57 Pulse Source Pulse Oximeter Pulse Oximeter Pulse Oximetry (%) 98 98 Oxygen Delivery Method Room Air Room Air Intake Visit Reasons: Left intraarticular hip inj Allergies No Known Allergies [No Known Allergies*] Allergy (Verified 08/07/23 09:11) HPI Left intraarticular hip inj HPI Details Patient presents for scheduled procedure. Denies any recent cough, cold, infection, fever or other significant changes in medical history since last office visit. [facility] Medical History Nocturnal hypoxemia SARTHAK (obstructive sleep apnea) Hypogonadism in male On beta catherine at home Hypothyroid IBS (irritable bowel syndrome) BPH (benign prostatic hyperplasia) Anxiety Allergic rhinitis COLON (nonalcoholic steatohepatitis) Elevated AFP Decreased libido Type 2 diabetes mellitus with unspecified complications Other and unspecified hyperlipidemia Essential hypertension Atherosclerotic cardiovascular disease Hypogonadism in male Hypogonadism Surgical History History of esophagogastroduodenoscopy (EGD) Hx of colonoscopy History of cardiac cath History of cardiac cath History of cardiac cath Family History Father Cardiac disease Mother Cardiac disease Social History Are you a primary home health caregiver to a significant other at home: No Do you presently have visiting nurse or other home services: No Alcohol intake: former Patient Tobacco Use Status: Former Tobacco user Quit Date: 3 yrs ago Tobacco use type: Cigarette Physical Exam Vital Signs: Last Vital Signs Pulse 57 08/07/23 10:39 Resp 12 08/07/23 10:39 BP 100/70 08/07/23 10:39 Pulse Ox 98 08/07/23 10:39 Oxygen Delivery Method Room Air 08/07/23 10:39 Office Procedures Joint Injection/Drain Joint Injection/Drain Details: Hip Intra-articular Injection, fluoroscopy guided, Left After informed written consent was obtained, the patient was placed in the lateral position. Pre-procedure oxygen saturation, heart rate, and blood pressure were recorded. The skin was prepped with Chloroprep, and draped in a sterile fashion. With the use of fluroscopy the hip joint was identified. With a 25-gauge 1.5 hypodermic needle 0.75% lidocaine was injected subcutaneously over the entry site. A 22-gauge 3.5 spinal needle was then advanced toward the junction of the joint capsule and femoral neck. Once in position, and after negative aspiration, 0.5mL of Omnipaque was injected outlining the joint capsule followed by injection of 40mg Kenalog mixed with 0.5% ropivacaine (3 mL total). There was no evidence of paresthesias throughout needle placement. The stylet was replaced and then the needle was withdrawn. The patient tolerated the procedure well and there was no evidence of procedural complications. EBL: <1cc Coding 22621 - Large joint Procedure code (CPT) selection complete Assessment & Plan Assessment & Plan (1) Bilateral hip pain: Code(s): M25.551 - Pain in right hip; M25.552 - Pain in left hip Plan Patient is status post left hip intra-articular Kenalog injection. Patient tolerated procedure well and was discharged home in stable condition with discharge instructions. All questions were answered. We will follow-up via telephone or in clinic to assess response to therapy. A follow-up appointment was made during today's visit. Orders: Orders FL guidance in treatment room Today M25.551 - Pain in right hip, M25.552 - Pain in left hip Coding Level of Care Code Procedure Only Diagnoses Bilateral hip pain M25.551; M25.552 CPT Codes Coding - 20417 Large joint: 61850 - Large joint ([id number])
[2023-08-07 10:39] VITALS: BP 100/70; PULSE 57; RESP 12; O2SAT 98
== END 2023-08-07 10:29 | disposition home or self-care (01) ==
LOC: HO.PMCPRC 09:06
PROVIDERS: PCP Internal Medicine; Referring Provider Internal Medicine; Visit Provider Internal Medicine
DX: M25.551 Pain in right hip (principal); M25.552 Pain in left hip
CPT/HCPCS: 20610; 77002

== ENCOUNTER 2023-09-05 08:43 | Outpatient (AMB) | payer MEDICAID, SELFPAY ==
--- NOTE | 2023-09-05 09:25 | MHC.OFFVIS ---
Intake Vital Signs 09/05/23 09:33 Height 5 ft 6 in Weight 168 lb BMI 27.1 BP 107/71 Blood Pressure Location Rt brachial Position Sitting Pulse 53 Pulse Source Pulse Oximeter Pulse Oximetry (%) 99 Oxygen Delivery Method Room Air Intake Visit Reasons: s/p left intraarticular hip inj Intake Note: Pain today 12/28 [employer]form[employer] Architect Required: Yes [employer] Architect Language: Chief Medical Technologist Name: Rayray # [id number] Accompanied by: Self / Same As Patient Allergies No Known Allergies [No Known Allergies*] Allergy (Verified 09/05/23 09:33) HPI HPI Comments History of Present Illness Details Patient is a pleasant 52-year-old [place] speaking male who presents today to the office for a left intra-articular hip injection on 08/07/[address] Wood. A certified printed circuit board panels plater was present during the visit. The patient reports about 50% relief following the procedure. Patient states that his left hip pain was improved. He states that his left hip and left shoulder pain is bothersome. Patient denies any significant right hip pain today. He completed physical therapy for hip pain but not shoulder pain. Patient is interested to pursue formal PT for left shoulder pain. Patient reports he held Plavix for 7 days for anticipation of left subacromial bursa shoulder injection with Dr. Wood today. Denies any recent cough, cold, infection, fever, any significant changes in her medical history, medications or recent hospitalizations. Past procedures: 08/07/23: Hip Intra-articular Injection, fluoroscopy guided, left lateral approach: 50% relief. 05/07/23: Hip Intra-articular Injection, fluoroscopy guided, right lateral approach: >50% relief. 02/05/23: Interlaminar epidural steroid injection, L5/S1, Right parasaggital: 100% relief for back pain 02/05/23: Hip Intra-articular Injection, fluoroscopy guided, Right anterior approach: no relief. 11/13/22: Transforaminal epidural steroid injection, Right L5: 50% relief. [facility] Medical History Nocturnal hypoxemia SARTHAK (obstructive sleep apnea) Hypogonadism in male On beta catherine at home Hypothyroid IBS (irritable bowel syndrome) BPH (benign prostatic hyperplasia) Anxiety Allergic rhinitis COLON (nonalcoholic steatohepatitis) Elevated AFP Decreased libido Type 2 diabetes mellitus with unspecified complications Other and unspecified hyperlipidemia Essential hypertension Atherosclerotic cardiovascular disease Hypogonadism in male Hypogonadism Surgical History History of esophagogastroduodenoscopy (EGD) Hx of colonoscopy History of cardiac cath History of cardiac cath History of cardiac cath Family History Father Cardiac disease Mother Cardiac disease Social History Are you a primary clinical care manager to a significant other at home: No Do you presently have visiting nurse or other home services: No Alcohol intake: former Patient Tobacco Use Status: Former Tobacco user Quit Date: 3 yrs ago Tobacco use type: Cigarette Review of Systems Const All systems reviewed & are unremarkable except as noted in HPI and below Physical Exam Vital Signs: Last Vital Signs Pulse 53 09/05/23 09:33 BP 107/71 09/05/23 09:33 Pulse Ox 99 09/05/23 09:33 Oxygen Delivery Method Room Air 09/05/23 09:33 BMI result Body Mass Index 27.1 General: Appears afebrile. Alert and oriented. Mood and affect appropriate. Follows and participates in conversation appropriately. Respiratory effort is unlabored. No cough. Able to transition from sit to stand unassisted. Ambulates with bilaterally normal heel strike and toe off. Extrem Left upper extremity: shoulder/upper arm (Left shoulder pain with overhead reaches. ) Details: tenderness Location: of the A-C joint and over the subacromial bursa Left lower extremity: hip/thigh (Mild pain with ROM) Assessment & Plan Assessment & Plan (1) Rotator cuff tendinitis: Code(s): M75.80 - Other shoulder lesions, unspecified shoulder (2) Left shoulder pain: Code(s): M25.512 - Pain in left shoulder (3) Bilateral hip pain: Code(s): M25.551 - Pain in right hip; M25.552 - Pain in left hip Plan Patient is one month s/p left intra-articular hip injection, lateral approach, fluoroscopy guided which provides him ongoing 50% pain relief. His right hip pain has been manageable. Patient will continue to monitor his pain levels and notify our office when his hip pain returns to baseline level. Patient will proceed with left subacromial bursa shoulder injection for shoulder pain with Dr. Wood today. Per patient. he held Plavix for 7 days. Script provided for physical therapy for left shoulder pain. We will obtain xray of left shoulder to assess degree of arthritis. All questions and concerns have been answered and patient agreed with the plan. Follow up after injection and sooner as needed. Justification for interventional therapy: ? Patient with average pain > 6/10 ? Patient has exhausted conservative therapy Orders: Orders PT Evaluation and Treatment Today M25.512 - Pain in left shoulder, M75.80 - Other shoulder lesions, unspecified shoulder XR shoulder LT min 2V Today M25.512 - Pain in left shoulder Coding Level of Care Code Est Pt Level 3 (81225) Diagnoses Rotator cuff tendinitis M75.80 Left shoulder pain M25.512 Bilateral hip pain M25.551; M25.552
[2023-09-05 09:33] VITALS: BP 107/71; PULSE 53; O2SAT 99; BMI 27.1
== END 2023-09-05 10:04 | disposition home or self-care (01) ==
PROVIDERS: PCP Internal Medicine; Visit Provider Nurse Practitioner Family
DX: M75.80 Other shoulder lesions, unspecified shoulder (principal); M25.512 Pain in left shoulder; M25.551 Pain in right hip; M25.552 Pain in left hip
CPT/HCPCS: 99213

== ENCOUNTER 2023-09-05 08:43 | Outpatient (REF) | payer MEDICAID, SELFPAY ==
--- NOTE | ~2023-09-05 | XR_ITS ---
EXAMINATION: XR SHOULDER, LEFT CLINICAL INFORMATION: Pain in left shoulder. COMPARISON: None available. TECHNIQUE: 4 views of the left shoulder. FINDINGS: Mild degenerative changes in the acromioclavicular joint with joint space narrowing and hypertrophic change. Mild hypertrophic change along the glenoid. Mild sclerosis along the greater tuberosity. XR/XR shoulder LT min 2V IMPRESSION: Mild degenerative changes.
== END 2023-09-05 08:44 | disposition home or self-care (01) ==
LOC: HO.XRAY 08:43
PROVIDERS: Absent Provider Nurse Practitioner Family; PCP Internal Medicine; Visit Provider Internal Medicine
DX: M25.512 Pain in left shoulder (principal); M75.80 Other shoulder lesions, unspecified shoulder; M25.551 Pain in right hip; M25.552 Pain in left hip
CPT/HCPCS: 20611; 73030; 99212; J2795; J3301

== ENCOUNTER 2023-09-05 09:51 | Outpatient (AMB) | payer MEDICAID, SELFPAY ==
--- NOTE | 2023-09-05 10:22 | A.OFFVIS_ITS ---
Intake Intake Visit Reasons: left subacromial bursa inj Allergies No Known Allergies [No Known Allergies*] Allergy (Verified 09/05/23 09:33) HPI left subacromial bursa inj HPI Details 52-year-old male who presents today to t he office for a left subacromial bursa injection. A certified publicity expert was present during the visit. Denies any recent cough, cold, infection, fever or other significant changes in medical history since last office visit. Past procedures: 08/07/23: Hip Intra-articular Injection, fluoroscopy guided, Left: >50% relief. 05/07/23: Hip Intra-articular Injection, fluoroscopy guided, right lateral approach: >50% relief. 02/05/23: Interlaminar epidural steroid injection, L5/S1, Right parasaggital: 100% relief for back pain 02/05/23: Hip Intra-articular Injection, fluoroscopy guided, Right anterior approach: no relief. 11/13/22: Transforaminal epidural steroi d injection, Right L5: 50% relief. [facility] Medical History Nocturnal hypoxemia SARTHAK (obstructive sleep apnea) Hypogonadism in male On beta catherine at home Hypothyroid IBS (irritable bowel syndrome) BPH (benign prostatic hyperplasia) Anxiety Allergic rhinitis COLON (nonalcoholic steatohepatitis) Elevated AFP Decreased libido Type 2 diabetes mellitus with unspecified complications Other and unspecified hyperlipidemia Essential hypertension Atherosclerotic cardiovascular disease Hypogonadism in male Hypogonadism Surgical History History of esophagogastroduodenoscopy (EGD) Hx of colonoscopy History of cardiac cath History of cardiac cath History of cardiac cath Family History Father Cardiac disease Mother Cardiac disease Social History Are you a primary director day care center to a significant other at home: No Do you presently have visiting nurse or other home services: No Alcohol intake: former Patient Tobacco Use Status: Former Tobacco user Quit Date: 3 yrs ago Tobacco use type: Cigarette Review of Systems Const All systems reviewed & are unremarkable except as noted in HPI and below Physical Exam General: Appears afebrile. Alert and oriented. Mood and affect appropriate. Follows and participates in conversation appropriately. Respiratory effort is unlabored. Able to transition from sit to stand unassisted. Ambulates with bilaterally normal heel strike and toe off. Office Procedures Joint Injection/Drain Joint Injection/Drain Details: Left subacromial bursa injection, ultrasound guided Primary Site: left shoulder Prep: site was prepped using aseptic technique and site was prepped using sterile technique Injected: 40 mg of, Kenalog, with 3 mL of, 0.25% bupivacaine and in the subcromial space (Left side) Approach Used: posterolateral Procedure: The patient tolerated the procedure well Coding Details: An ultrasound image of the injection was taken and stored in the permanent record. - Acromioclavicular with ultrasound guidance (left side, ultrasound guided) Procedure code (CPT) selection complete Results Reviewed Results Reviewed: No imaging is available for review. Assessment & Plan Assessment & Plan (1) Left shoulder pain: Code(s): M25.512 - Pain in left shoulder Plan Patient is status post left subacromial bursa injection, ultrasound guided. Patient tolerated procedure well and was discharged home in stable condition with discharge instructions. All questions were answered. Follow-up as needed. Scribed for Dr. Wood by Jonnie Centeno, biomedical electronics technician, on 09/05/2023. I, Dr. Wood, have personally reviewed and agree with the information entered by the scribe. Coding Level of Care Code Procedure Only Diagnoses Left shoulder pain M25.512 CPT Codes Coding - Joint 6: - Acromioclavicular with ultrasound guidance ([id number])
== END 2023-09-05 10:55 | disposition home or self-care (01) ==
LOC: HO.PMC 09:51
PROVIDERS: PCP Internal Medicine; Visit Provider Internal Medicine
DX: M25.512 Pain in left shoulder (principal)
CPT/HCPCS: 20611

== ENCOUNTER 2023-09-22 08:29 | Outpatient (AMB) | payer MEDICAID, SELFPAY ==
[2023-09-22 09:00] VITALS: BP 123/81; PULSE 74; RESP 12; O2SAT 96; BMI 27.1
--- NOTE | 2023-09-22 09:00 | MHC.OFFVIS ---
Intake Vital Signs 09/22/23 09:00 Height 5 ft 6 in Weight 168 lb BMI 27.1 BP 123/81 Blood Pressure Location Lt brachial Position Sitting Respiration 12 Pulse 74 Pulse Source Pulse Oximeter Pulse Oximetry (%) 96 Oxygen Delivery Method Room Air Intake Visit Reasons: Shoulder X-Ray Clinical Data Abstractor Required: Yes Clinical Data Abstractor Name: Belinda Allergies No Known Allergies [No Known Allergies*] Allergy (Verified 09/22/23 09:03) HPI Shoulder X-Ray HPI Details 52-year-old male who presents today to the office for a review of x-ray of shoulder. A certified set up / operator was present during the visit. The patient reports 80% relief following the procedure. The patient had an x-ray, which was unremarkable and was reviewed today. He states that his hip pain is improving. He has been doing gentle home exercises. He started physical therapy for shoulder pain on 09/08/2023. Past procedures: 08/07/23: Hip Intra-articular Injection, fluoroscopy guided, Left: 80% relief. 05/07/23: Hip Intra-articular Injection, fluoroscopy guided, right lateral approach: >50% relief. 02/05/23: Interlaminar epidural steroid injection, L5/S1, Right parasaggital: 100% relief for back pain 02/05/23: Hip Intra-articular Injection, fluoroscopy guided, Right anterior approach: no relief. 11/13/22: Transforaminal epidural steroid injection, Right L5: 50% relief. [facility] Medical History Nocturnal hypoxemia SARTHAK (obstructive sleep apnea) Hypogonadism in male On beta catherine at home Hypothyroid IBS (irritable bowel syndrome) BPH (benign prostatic hyperplasia) Anxiety Allergic rhinitis COLON (nonalcoholic steatohepatitis) Elevated AFP Decreased libido Type 2 diabetes mellitus with unspecified complications Other and unspecified hyperlipidemia Essential hypertension Atherosclerotic cardiovascular disease Hypogonadism in male Hypogonadism Surgical History History of esophagogastroduodenoscopy (EGD) Hx of colonoscopy History of cardiac cath History of cardiac cath History of cardiac cath Family History Father Cardiac disease Mother Cardiac disease Social History Are you a primary career development coordinator/teacher to a significant other at home: No Do you presently have visiting nurse or other home services: No Alcohol intake: former Patient Tobacco Use Status: Former Tobacco user Quit Date: 3 yrs ago Tobacco use type: Cigarette Review of Systems Const All systems reviewed & are unremarkable except as noted in HPI and below Physical Exam Vital Signs: Last Vital Signs Pulse 74 09/22/23 09:00 Resp 12 09/22/23 09:00 BP 123/81 09/22/23 09:00 Pulse Ox 96 09/22/23 09:00 Oxygen Delivery Method Room Air 09/22/23 09:00 BMI result Body Mass Index 27.1 General: Appears afebrile. Alert and oriented. Mood and affect appropriate. Follows and participates in conversation appropriately. Respiratory effort is unlabored. Able to transition from sit to stand unassisted. Ambulates with bilaterally normal heel strike and toe off. Results Reviewed Results Reviewed: 09/05/23: XR SHOULDER, LEFT: % relief. FINDINGS: Mild degenerative changes in the acromioclavicular joint with joint space narrowing and hypertrophic change. Mild hypertrophic change along the glenoid. Mild sclerosis along the greater tuberosity. IMPRESSION: Mild degenerative changes. Assessment & Plan Assessment & Plan (1) Left shoulder pain: Code(s): M25.512 - Pain in left shoulder Plan We reviewed the recent x-ray result with the patient today which was unremarkable. The patient has good ongoing relief. The patient will follow up as needed. Scribed for Dr. Wood by Jonnie Centeno, medical technologist chemistry, on 09/22/2023. I, Dr. Wood, have personally reviewed and agree with the information entered by the scribe. Coding Level of Care Code Est Pt Level 3 (94599) Diagnoses Left shoulder pain M25.512
== END 2023-09-22 09:20 | disposition home or self-care (01) ==
PROVIDERS: PCP Internal Medicine; Visit Provider Internal Medicine
DX: M25.512 Pain in left shoulder (principal)
CPT/HCPCS: 99213

== ENCOUNTER → 2023-09-22 08:29 | Outpatient (BNVA) | payer MEDICAID, SELFPAY | PROVIDERS: PCP Internal Medicine; Visit Provider Internal Medicine | DX: M25.512 Pain in left shoulder (principal) | CPT/HCPCS: 99212 ==

== ENCOUNTER 2023-10-07 08:14 | Outpatient (AMB) | payer MEDICAID, SELFPAY ==
--- NOTE | 2023-10-07 08:22 | MHC.OFFVIS ---
Intake Vital Signs 10/07/23 08:50 Height 5 ft 6 in Weight 167 lb 15.876 oz BMI 27.1 BP 133/82 Blood Pressure Location Rt brachial Position Sitting Pulse 71 Intake Visit Reasons: 6 month follow up Intake Note: Patient present today in 6 months follow up of abdominal pain. CC: Patient reports having abdominal discomfort, and feeling like a ball coming up his esophagus. He states he continues to have LUQ abdominal pain, occasional constipation, and rectal bleeding. Rn Peritoneal Dialysis Required: Yes Rn Peritoneal Dialysis Language: Wallisian Accompanied by: Self / Same As Patient Allergies No Known Allergies [No Known Allergies*] Allergy (Verified 10/07/23 08:57) HPI 6 month follow up HPI Details Assessment & Plan (1) Nausea and vomiting: Code(s): R11.2 - Nausea with vomiting, unspecified Plan: [place] #Jessica, Live We review the results. We have been unable to uncover a GI cause for his nausea, so I think he needs to explore with his other providers if this is a medication side effect. The most suspect would be his diabetes medications Invokana and metformin, but this does not exclude others. He has had an unremarkable EGD in 2019, negative CT, negative GES for his nausea. He also has left mid abd pain not explained. But the pain is alleviated with bentyl so it is likely bowel spasm. He is worried it is not healing, and I educate him the diabetics are prone to bowel cramping r/t multiple hormonal changes. This is life limiting but not fatal. He also has a very dry mouth, and this is so bad he uses lozenges at night. This is most likely a medication s/e. He is taking loperimide, and this could be one culprit. He says his diarrhea has been less, so he will cut back the dose. He was seen by Pain Mgmt and he was told that he has a hip out of place and this causes a great deal of referred pain in the groin. He has been offered PT vs hip replacement and he opt for PT for now. ROV 6 mos. (2) GERD (gastroesophageal reflux disease): Code(s): K21.9 - Gastro-esophageal reflux disease without esophagitis (3) COLON (nonalcoholic steatohepatitis): Comment: 2019: AST/ALT 40/108 with a normal alk-phos, negative autoimmune workup, negative hepatitis a B and C, ferritin is normal at 130, GGT not elevated at 20, hCG tumor marker < 2 Alpha fetoprotein quite elevated at greater than 12 but liver functions are normal the autoimmune workup is normal he is negative for hepatitis B and C and his ultrasound does not show any masses. It is possible that this values being driven out by his injection cholesterol medication or even that has something to do with recently had TURP, MRI 02/2019 neg 07/23/2019?ALPHA-FETOPROTEIN,TUMOR MARKER 12.8??(ng/mL) 03/18/2019 ?ALPHA-FETOPROTEIN,TUMOR MARKER 13.0?AA * CURRENT LABS. 07/31/22 Plt Count 224 Total Bilirubin 0.8 AST 17 ALT 23 Alkaline Phosphatase 90 Alpha Fetoprotein 14.5 H Ultrasound the abdomen 08/12/22? FINDINGS: PANCREAS: Obscured by bowel gas. LIVER: Normal. The liver is normal in size. The liver contour is normal. Parenchymal echogenicity is normal. No focal hepatic lesion. There is no intrahepatic biliary duct dilatation seen. GALLBLADDER: Normal. The gallbladder is physiologically distended without evidence of stones, sludge, polyps, wall thickening or pericholecystic fluid. COMMON BILE DUCT: Normal in caliber measuring 0.3 cm in diameter. RIGHT KIDNEY: Punctate echogenic foci without twinkle or shadowing may reflect a vascular reflector's. No hydronephrosis. No renal calculi or focal parenchymal lesions. The kidney measures 11.2 cm in maximum dimension. FREE FLUID: None. US/US abdomen limited IMPRESSION: ? Unremarkable sonographic appearance of the liver. ? Pancreas is obscured by bowel gas limiting evaluation. Code(s): K75.81 - Nonalcoholic steatohepatitis (COLON) (4) Irritable bowel syndrome with diarrhea: Code(s): K58.0 - Irritable bowel syndrome with diarrhea (5) Hemorrhoids: Comment: Has bleeding when he pushes, continues to use Proctosol cream to Code(s): K64.9 - Unspecified hemorrhoids (6) Tubular adenoma of colon: Comment: 2020=ta REPEAT 5 YEARS, 2019 scoped, sessile repeat 1-2 years, 1-2 cm in size with 3-4 smaller polyps Code(s): D12.6 - Benign neoplasm of colon, unspecified (7) Esophageal dysmotility: Comment: 2018 EGD more esophageal dysmotility than any other problem driving was then problems with dysphagia. Patient is on dicyclomine for this Code(s): K22.4 - Dyskinesia of esophagus (8) Elevated AFP: Comment: No elevatin of HCG tumor marker, and no liver masses, Had referred him to see a physician and he was seen by Dr. Leyva who recommended only monitoring the AFP 07/23/2019?11:15:00 Result Recd:?07/29/2019?08:10:04Report:?07/23/2019 ?11:15:00 Requesting Physician:?Bailey OctoberOrdering Physician:?Mary Kay AvalosCopied: BaileyOctober ALPHA-FETOPROTEIN,TUMOR MARKER NAMEVALUEREFERENCE RANGE FALPHA-FETOPROTEIN,TUMOR CDIBSR25.8??(ng/mL) * 03/18/2019 ALPHA-FETOPROTEIN,TUMOR MARKER NAMEVALUEREFERENCE RANGEFALPHA-FETOPROTEIN,TUMOR MARKER 13.0?AA * 07/31/22 Alpha Fetoprotein 14.5 H Code(s): R77.2 - Abnormality of alphafetoprotein Medications: Refilled dicyclomine 20 mg PO QID 120 t abs 3RF for cramps K22.4 - Dyskinesia of esophagus famotidine 40 mg PO BID 60 ta bs 6RF fvgkct-lmifhmpw-yn ylase 5,000-17,000 - 24,000 unit (Jose pep) 1 cap PO QID 120 c aps 6RF K58.0 - Irritable bowel syndrome wit h diarrhea promethazine 25 mg PO Q12H PRN 60 tabs 6RF for na usea/vomiting TODAY'S VISIT [place] #Jessica Live He says that his diarrhea is less often now, in fact he frequently feels constipated. He is only using the loperimide when he has diarrhea. He had injections for his hips and this helped the hip pain,but not the left abd pain. (which I thought was from the t spine not the hips, but also may be bowel spasm). I think we will start a fiber pill and change from bentyl to imipramine. rov 4 weeks. [facility] Medical History Nocturnal hypoxemia SARTHAK (obstructive sleep apnea) Hypogonadism in male On beta catherine at home Hypothyroid IBS (irritable bowel syndrome) BPH (benign prostatic hyperplasia) Anxiety Allergic rhinitis COLON (nonalcoholic steatohepatitis) Elevated AFP Decreased libido Type 2 diabetes mellitus with unspecified complications Other and unspecified hyperlipidemia Essential hypertension Atherosclerotic cardiovascular disease Hypogonadism in male Hypogonadism Surgical History History of esophagogastroduodenoscopy (EGD) Hx of colonoscopy History of cardiac cath History of cardiac cath History of cardiac cath Family History Father Cardiac disease Mother Cardiac disease Social History Are you a primary physician loc[facility] urgent care to a significant other at home: No Do you presently have visiting nurse or other home services: No Alcohol intake: former Patient Tobacco Use Status: Former Tobacco user Quit Date: 3 yrs ago Tobacco use type: Cigarette Review of Systems Const Denies fatigue, Denies fever(s), Denies night sweats, Denies poor appetite and Denies weight loss Eyes Details: glasses Reports requires corrective lenses ENT Reports Normal hearing present, Denies dental pain, Denies dysphagia, Denies hearing loss, Denies mouth pain, Denies odynophagia, Denies throat swelling, Denies tongue swelling and Reports other (Dentition adequate) Card Reports no additional complaints Resp Reports no additional complaints GI Details: Reports abdominal pain, Denies melena, Denies bloating, Denies hematochezia, Denies constipation, Reports GI cramping, Denies dysphagia, Denies excessive flatus, Denies early satiety, Reports heartburn, Denies diarrhea, Denies nausea, Denies odynophagia, Denies vomiting and Denies hematemesis Skin/Breast Denies pruritus, Denies lesions, Denies rash and Denies jaundice Neuro Reports Normal hearing present and Denies Abnormal speech present Endo Denies fatigue Aller/Immun Denies throat swelling and Denies tongue swelling Physical Exam Vital Signs: Last Vital Signs Pulse 71 10/07/23 08:50 BP 133/82 10/07/23 08:50 BMI result Body Mass Index 27.1 Const General: cooperative, no acute distress, well developed and well groomed Nutritional Appearance: average body habitus and well nourished Orientation/consciousness: oriented to person, oriented to place and oriented to time Limitations: language barrier HEENT Head: Yes normocephalic and Yes atraumatic Eyes General: appearance normal, both eyes and all related structures Pupils: Equal, round and reactive pupils present Neck Neck: Yes normal visual inspection and Yes no lymphadenopathy Thyroid: Thyroid normal Resp Effort & Inspection: normal respiratory effort and able to speak in complete sentences Auscultation: clear to auscultation bilaterally Cardio Rate: regular rate Rhythm: regular rhythm Heart sounds: Normal, physiologic split S2 sound present Peripheral pulses: radial pulses present and posterior tibial pulses present GI Inspection: No distended and No Abdominal panniculus present Palpation (GI): Soft to palpation, nontender, no guarding, not rigid and No hepatosplenomegaly present Percussion: Yes normal to percussion Auscultation: normal bowel sounds Rectal Exam - Male: Yes deferred Skin General skin exam: no rashes or lesions noted, turgor normal, skin not dry, no jaundice, No spider nevi and no striae Rashes: no rashes Nails: normal Neuro General: oriented to person, oriented to place and oriented to time Cranial nerves: Yes Equal, round and reactive pupils present and Yes Normal hearing present Speech: No Abnormal speech present Extrem General: Yes normal to inspection, No clubbing, No cyanosis and No edema Psych Appearance: grossly normal and well kempt Mental Status: mental status grossly normal Speech and movement: Normal speech and movement present Affect: normal affect Attitude: cooperative Thought process: Normal thought process present and not confabulating Thought content: Normal thought content present Insight: Limited insight present (Psych) Judgement: Limited judgement present (Psych) Assessment & Plan Assessment & Plan (1) GERD (gastroesophageal reflux disease): Code(s): K21.9 - Gastro-esophageal reflux disease without esophagitis (2) Irritable bowel syndrome with diarrhea: Code(s): K58.0 - Irritable bowel syndrome with diarrhea (3) Tubular adenoma of colon: Comment: 2020=ta REPEAT 5 YEARS, 2019 scoped, sessile repeat 1-2 years, 1-2 cm in size with 3-4 smaller polyps Code(s): D12.6 - Benign neoplasm of colon, unspecified Plan [place] #Jessica Live He says that his diarrhea is less often now, in fact he frequently feels constipated. He is only using the loperimide when he has diarrhea. He had injections for his hips and this helped the hip pain,but not the left abd pain. (which I thought was from the t spine not the hips, but also may be bowel spasm). I think we will start a fiber pill and change from bentyl to imipramine. rov 4 weeks. Orders: Orders Colonoscopy - GI Use Only Today D12.6 - Benign neoplasm of colon, unspecified Medications: New psyllium husk (Daily Fiber) 0.4 grams PO BID 60 caps 6RF K58.0 - Irritable bowel syndrome with diarrhea bisacodyl (Dulcolax (bisacodyl)) 10 mg (2 x 5 mg) PO BEDTIME 2 days 4 tabs 0RF imipramine HCl 10 mg PO BEDTIME 30 days 30 tabs 3RF K58.0 - Irritable bowel syndrome with diarrhea peg 3350-electrolytes 236-22.74-6.74 -5.86 gram (Golytely) until fecal effluent is clear; do not exceed a total volume of 2,000 mL 240 mL PO Q10M 1 day 4,000 mL 0RF Z12.11 - Encounter for screening for malignant neoplasm of colon On Hold dicyclomine Hold Comment: Doctor's Order 20 mg PO QID 120 tabs 3RF for cramps K22.4 - Dyskinesia of esophagus Coding Level of Care Code Est Pt Level 3 (62604) Diagnoses GERD (gastroesophageal reflux disease) K21.9 Irritable bowel syndrome with diarrhea K58.0 Tubular adenoma of colon D12.6
[2023-10-07 08:50] VITALS: BP 133/82; PULSE 71; BMI 27.1
== END 2023-10-07 09:27 | disposition home or self-care (01) ==
PROVIDERS: PCP Internal Medicine; Visit Provider Nurse Practitioner
DX: K21.9 Gastro-esophageal reflux disease without esophagitis (principal); K58.0 Irritable bowel syndrome with diarrhea; D12.6 Benign neoplasm of colon, unspecified
CPT/HCPCS: 99213

== ENCOUNTER → 2023-10-07 08:14 | Outpatient (BNVA) | payer MEDICAID, SELFPAY | PROVIDERS: PCP Internal Medicine; Visit Provider Nurse Practitioner | DX: K21.9 Gastro-esophageal reflux disease without esophagitis (principal); K58.0 Irritable bowel syndrome with diarrhea; D12.6 Benign neoplasm of colon, unspecified | CPT/HCPCS: 99212 ==

== ENCOUNTER 2023-11-05 11:00 | Outpatient (RCR) | payer MEDICAID, SELFPAY ==
--- NOTE | 2023-12-16 13:11 | MHC.PT.DC ---
[facility] [place] Office [place] Office [place] Office [address] [place] [address] [phone] F: [phone] F: [phone] F: [phone] F: [phone] Physical Therapy Discharge Report Diagnosis: L SHOULDER PAIN Date of Surgery: NA Date of Evaluation: 10/07/23 Date of Discharge: 12/16/23 Treatments to Date: 7 Cancellations to Date: 0 No Shows to Date: 0 Discharge Status: Achieved Goals Improved Function Independent with HEP Discharge Summary: Pt last seen for PT on 11/05/23, the assessment reads, Owen is independent with exercises, not needing cues to recall form. He reports mild pain at ACJ specifically end of session. Anticipate D/C next visit due to continued progress. He ceased attending PT and did finish his authorized PT visits. He is discharged. Electronically signed by: Suhail Lopez, PT, DPT Please sign and return to therapist. Thank you for your referral.
== END 2023-12-16 13:13 | disposition home or self-care (01) ==
LOC: HO.PT 11:00
PROVIDERS: PCP Internal Medicine; Visit Provider Nurse Practitioner Family
DX: M75.80 Other shoulder lesions, unspecified shoulder (principal); M25.512 Pain in left shoulder
CPT/HCPCS: 97110; 97112; 97140; 97161; 97530

== ENCOUNTER 2023-11-07 08:02 | Outpatient (REF) | payer MEDICAID, SELFPAY ==
[2023-11-07 09:17] LABS: Hematocrit 53.8 % (42.0-52.0); Hemoglobin 18.3 g/dl (14.0-18.0); Mean Corpuscular Hemoglobin 29.7 pg (27.0-33.0); Mean Corpuscular Volume 87.3 fL (80.0-98.0); Platelet Count 251 X10*3/uL (160-400); Red Blood Count 6.16 X10*6/uL (4.60-5.80); Red Cell Distribution Width 13.2 % (11.0-16.0); White Blood Count 6.9 X10*3/uL (4.8-10.8)
[2023-11-07 10:30] LABS: Prostate Specific Antigen 0.75 ng/mL (<0.05-4.0)
[2023-11-12 16:38] LABS: Testosterone, Total 1255 ng/dL (250-1100)
== END 2023-11-07 08:03 | disposition home or self-care (01) ==
LOC: HO.LAB 08:02
PROVIDERS: PCP Internal Medicine; Visit Provider Urology
DX: E29.1 Testicular hypofunction (principal)
CPT/HCPCS: 36415; 84153; 84403; 85027

== ENCOUNTER 2023-11-12 08:40 | Outpatient (AMB) | payer MEDICAID, SELFPAY ==
--- NOTE | 2023-11-12 09:05 | MHC.OFFVIS ---
Vital Signs 11/12/23 09:08 Height 5 ft 6 in Weight 165 lb 1.314 oz BMI 26.6 BP 123/88 Blood Pressure Location Rt brachial Position Sitting Pulse 84 Intake Visit Reasons: eval imipramine left abd pain Intake Note: Owen returns to in office follow up for evaluation of imipramine and left abdominal pain. CC: Patient states that he took the Reguloid but noticed more constipation and d/c medications. He states he is able to have BMs better without Reguloid. She states she has not seen much improvement with Imipramine. Management Advisor Required: Yes Accompanied by: Self / Same As Patient Allergies No Known Allergies [No Known Allergies*] Allergy (Verified 11/12/23 09:16) HPI HPI eval imipramine left abd pain: Details: Assessment & Plan (1) GERD (gastroesophageal reflux disease): Code(s): K21.9 - Gastro-esophageal reflux disease without esophagitis (2) Irritable bowel syndrome with diarrhea: Code(s): K58.0 - Irritable bowel syndrome with diarrhea (3) Tubular adenoma of colon: Comment: 2020=ta REPEAT 5 YEARS, 2019 scoped, sessile repeat 1-2 years, 1-2 cm in size with 3-4 smaller polyps Code(s): D12.6 - Benign neoplasm of colon, unspecified Plan [place] #Jessica Live He says that his diarrhea is less often now, in fact he frequently feels constipated. He is only using the loperimide when he has diarrhea. He had injections for his hips and this helped the hip pain,but not the left abd pain. (which I thought was from the t spine not the hips, but also may be bowel spasm). I think we will start a fiber pill and change from bentyl to imipramine. rov 4 weeks. Orders: Orders Colonoscopy - GI Use Only Today D12.6 - Benign neoplasm of colon, unspecified Medications: New psyllium husk (Daily Fiber) 0.4 grams PO BID 60 caps 6RF K58.0 - Irritable bowel syndrome with diarrhea bisacodyl (Dulcolax (bisacodyl)) 10 mg (2 x 5 mg) PO BEDTIME 2 days 4 tabs 0RF imipramine HCl 10 mg PO BEDTIME 30 days 30 tabs 3RF K58.0 - Irritable bowel syndrome with diarrhea peg 3350-electrolytes 236-22.74-6.74 -5.86 gram (Golytely) until fecal effluent is clear; do not exceed a total volume of 2,000 mL 240 mL PO Q10M 1 day 4,000 mL 0RF Z12.11 - Encounter for screening for malignant neoplasm of colon On Hold dicyclomine Hold Comment: Doctor's Order 20 mg PO QID 120 tabs 3RF for cramps K22.4 - Dyskinesia of esophagus COLONOSCOPY Scheduled for 03/12/2024 BIOPSY TODAY'S VISIT [place] #Shelia Live He found that the fiber pill constipated him so he stopped it. He is taking the imipramine qhs and it is helping but not with complete relief yet. He also finds that the TCA is helping his leg pain. I explain that this medicine is used for many purposes, including neuropathic pain, sleep and depression. He also continues on his famotidine and his Creon. ROV 4 weeks. [facility] Medical History Nocturnal hypoxemia SARTHAK (obstructive sleep apnea) Hypogonadism in male On beta catherine at home Hypothyroid IBS (irritable bowel syndrome) BPH (benign prostatic hyperplasia) Anxiety Allergic rhinitis COLON (nonalcoholic steatohepatitis) Elevated AFP Decreased libido Type 2 diabetes mellitus with unspecified complications Other and unspecified hyperlipidemia Essential hypertension Atherosclerotic cardiovascular disease Hypogonadism in male Hypogonadism Surgical History History of esophagogastroduodenoscopy (EGD) Hx of colonoscopy History of cardiac cath History of cardiac cath History of cardiac cath Family History Father Cardiac disease Mother Cardiac disease Social History Are you a primary care management assistant to a significant other at home: No Do you presently have visiting nurse or other home services: No Alcohol intake: former Patient Tobacco Use Status: Former Tobacco user Quit Date: 3 yrs ago Tobacco use type: Cigarette Review of Systems Const Denies fatigue, Denies fever(s), Denies night sweats, Denies poor appetite and Denies weight loss Eyes Details: glasses Reports requires corrective lenses ENT Reports Normal hearing present, Denies dental pain, Denies dysphagia, Denies hearing loss, Denies mouth pain, Denies odynophagia, Denies throat swelling, Denies tongue swelling and Reports other (Dentition adequate) Card Reports no additional complaints Resp Reports no additional complaints GI Details: Denies abdominal pain, Denies melena, Reports bloating, Denies hematochezia, Denies constipation, Reports GI cramping, Denies dysphagia, Denies excessive flatus, Denies early satiety, Reports heartburn, Denies diarrhea, Denies nausea, Denies odynophagia, Denies vomiting and Denies hematemesis Musc Reports myalgias, Reports arthralgias and Reports radiating pain into limb Skin/Breast Denies pruritus, Denies lesions, Denies rash and Denies jaundice Neuro Reports Normal hearing present and Denies Abnormal speech present Endo Denies fatigue Aller/Immun Denies throat swelling and Denies tongue swelling Physical Exam Vital Signs: Last Vital Signs Pulse 84 11/12/23 09:08 BP 123/88 11/12/23 09:08 BMI result Body Mass Index 26.6 Const General: cooperative, no acute distress, well developed and well groomed Nutritional Appearance: average body habitus and well nourished Orientation/consciousness: oriented to person, oriented to place and oriented to time Limitations: language barrier HEENT Head: Yes normocephalic and Yes atraumatic Eyes General: appearance normal, both eyes and all related structures Pupils: Equal, round and reactive pupils present Neck Neck: Yes normal visual inspection and Yes no lymphadenopathy Thyroid: Thyroid normal Resp Effort & Inspection: normal respiratory effort and able to speak in complete sentences Auscultation: clear to auscultation bilaterally Cardio Rate: regular rate Rhythm: regular rhythm Heart sounds: Normal, physiologic split S2 sound present Peripheral pulses: radial pulses present and posterior tibial pulses present GI Inspection: No distended and No Abdominal panniculus present Palpation (GI): Soft to palpation, nontender, no guarding, not rigid and No hepatosplenomegaly present Percussion: Yes normal to percussion Auscultation: normal bowel sounds Rectal Exam - Male: Yes deferred Skin General skin exam: no rashes or lesions noted, turgor normal, skin not dry, no jaundice, No spider nevi and no striae Rashes: no rashes Nails: normal Neuro General: oriented to person, oriented to place and oriented to time Cranial nerves: Yes Equal, round and reactive pupils present and Yes Normal hearing present Speech: No Abnormal speech present Extrem General: Yes normal to inspection, No clubbing, No cyanosis and No edema Psych Appearance: grossly normal and well kempt Mental Status: mental status grossly normal Speech and movement: Normal speech and movement present Affect: normal affect Attitude: cooperative Thought process: Normal thought process present and not confabulating Thought content: Normal thought content present Insight: Limited insight present (Psych) Judgement: Limited judgement present (Psych) Assessment & Plan Assessment & Plan (1) GERD (gastroesophageal reflux disease): Code(s): K21.9 - Gastro-esophageal reflux disease without esophagitis Category: Medical (2) Irritable bowel syndrome with diarrhea: Code(s): K58.0 - Irritable bowel syndrome with diarrhea Category: Medical (3) Esophageal dysmotility: Comment: 2019 EGD more esophageal dysmotility than any other problem driving was then problems with dysphagia. Patient is on dicyclomine for this Code(s): K22.4 - Dyskinesia of esophagus Category: Medical Plan [place] #Tachira Live He found that the fiber pill constipated him so he stopped it. He is taking the imipramine qhs and it is helping but not with complete relief yet. He also finds that the TCA is helping his leg pain. I explain that this medicine is used for many purposes, including neuropathic pain, sleep and depression. He also continues on his famotidine and his Creon. ROV 4 weeks. Medications: Changed From imipramine HCl 10 mg PO BEDTIME 30 days 30 tabs 3RF K58.0 - Irritable bowel syndrome with diarrhea To imipramine HCl 20 mg (2 x 10 mg) PO BEDTIME 60 tabs 6RF 30 days K58.0 - Irritable bowel syndrome with diarrhea Coding Level of Care Code Est Pt Level 3 (91982) Diagnoses GERD (gastroesophageal reflux disease) K21.9 Irritable bowel syndrome with diarrhea K58.0 Esophageal dysmotility K22.4
[2023-11-12 09:08] VITALS: BP 123/88; PULSE 84; BMI 26.6
== END 2023-11-12 09:46 | disposition home or self-care (01) ==
PROVIDERS: PCP Internal Medicine; Visit Provider Nurse Practitioner
DX: K21.9 Gastro-esophageal reflux disease without esophagitis (principal); K58.0 Irritable bowel syndrome with diarrhea; K22.4 Dyskinesia of esophagus
CPT/HCPCS: 99213

== ENCOUNTER → 2023-11-12 08:40 | Outpatient (BNVA) | payer MEDICAID, SELFPAY | PROVIDERS: PCP Internal Medicine; Visit Provider Nurse Practitioner | DX: K21.9 Gastro-esophageal reflux disease without esophagitis (principal); K58.0 Irritable bowel syndrome with diarrhea; K22.4 Dyskinesia of esophagus | CPT/HCPCS: 99212 ==

== ENCOUNTER 2023-11-21 13:42 | Outpatient (AMB) | payer MEDICAID, SELFPAY ==
--- NOTE | 2023-11-21 14:11 | A.OFFVIS_ITS ---
Intake Visit Reasons: 6M PSA/Testosterone(set) Intake Note: Patient is Present for Follow Up Urology Medication: Oxybutynin, Testosterone, Tamsulosin Antibiotic Allergies: None Blood Thinners: Aspirin, Clopidogrel Allergies No Known Allergies [No Known Allergies*] Allergy (Verified 11/12/23 09:16) HPI Comments Details: Owen is Slovak-speaking male. He is a patient of Dr. Holman. He is seen for the following urologic conditions - hypogonadism - bladder outlet obstruction Slovak translation provided by qualified medical office rep Current lab work - borderline high hematocrit Injection for 0.7 ml every 2 weeks Had 3 cc syringe for injecting Will represcribed with 1 cc syringe so he can use 0.7 cc every 2 weeks The stents timing for lab work Has sleep issues with lack of energy Hypogonadism Longstanding Testosterone replacement started in [place] Continues with 1.0 cc 200 milligram/mL injection every 2 weeks - injection day Friday - laboratory day Friday - knows to do labs mid cycle Laboratories - 05/10 T 604, PSA 0.7, Hct 47.5, 11/09 T 1171 0.8 53, 05/11 T 1012 52, 11/10 T 388 H52, 05/11 T 890 P 0.8., 11/11 T 1200 Hct 53 Bladder outlet obstruction Initial weakness of stream and incomplete emptying Good response to tamsulosin Controls nocturia PFSH Medical History Nocturnal hypoxemia SARTHAK (obstructive sleep apnea) Hypogonadism in male On beta catherine at home Hypothyroid IBS (irritable bowel syndrome) BPH (benign prostatic hyperplasia) Anxiety Allergic rhinitis COLON (nonalcoholic steatohepatitis) Elevated AFP Decreased libido Type 2 diabetes mellitus with unspecified complications Other and unspecified hyperlipidemia Essential hypertension Atherosclerotic cardiovascular disease Hypogonadism in male Hypogonadism Surgical History History of esophagogastroduodenoscopy (EGD) Hx of colonoscopy History of cardiac cath History of cardiac cath History of cardiac cath Family History Father Cardiac disease Mother Cardiac disease Social History Are you a primary manager home healthcare to a significant other at home: No Do you presently have visiting nurse or other home services: No Alcohol intake: former Patient Tobacco Use Status: Former Tobacco user Quit Date: 3 yrs ago Tobacco use type: Cigarette Review of Systems Const Denies chills and Denies fever(s) Card Reports no additional complaints and Denies syncope Resp Denies cough GI Denies abdominal pain and Denies heartburn Reports as per HPI and Denies change in libido Neuro Denies syncope Psych Denies change in libido Endo Denies change in libido Physical Exam Const General: cooperative, healthy appearing, comfortable and no acute distress Orientation/consciousness: patient oriented x3 HEENT Face and sinus: Yes normal facial exam Mouth: moist mucous membranes Neck Neck: Yes normal visual inspection, Yes full ROM and Yes trachea midline Chest Chest palpation & inspection: normal inspection of the chest Resp Effort & Inspection: normal respiratory effort, able to speak in complete sentences and no respiratory distress GI Inspection: Yes normal to inspection Back/Spine/Pelvis Cervical Spine: normal cervical lordosis Thoracic/Lumbar Spine: thoracic and lumbar spine normal to inspection Skin General skin exam: no rashes or lesions noted Neuro General: patient oriented x3, gait normal, tone normal and moves all extremities Extrem General: Yes normal to inspection and Yes capillary refill normal Assessment & Plan Assessment & Plan (1) Bladder outlet obstruction: Code(s): N32.0 - Bladder-neck obstruction Category: Medical (2) Hypogonadism in male: Code(s): E29.1 - Testicular hypofunction Category: Medical Plan Six-month follow-up Orders: Orders Prostate Specific Antigen 6 Months E29.1 - Testicular hypofunction Testosterone, Total 6 Months E29.1 - Testicular hypofunction Complete Blood Count no Diff 6 Months E29.1 - Testicular hypofunction Medications: New needle (disp) 18 G (BD Regular Bevel [place]) As directed - draw up testosterone 30 ea 0RF E29.1 - Testicular hypofunction syringe (disposable) (Monoject TB Luer Judy) As directed - use 18 needle to draw up testosterone and 22 to inject 60 ea 0RF E29.1 - Testicular hypofunction needle (disp) 22 G To inject Testosterone 30 ea 0RF E29.1 - Testicular hypofunction, E34.9 - Endocrine disorder, unspecified Discontinued syringe with needle (BD Luer-Judy Syringe) Discontinued Reason: Doctor's Order As directed Q2 weeks 50 ea 0RF E29.1 - Testicular hypofunction Patient Instructions: Imaging studies, laboratory and physical exam results were discussed and reviewed in detail. No major barriers to patient understanding were identified. An opportunity to ask questions regarding the treatment plan was provided. All questions were answered. The patient expressed understanding and agreement with the above treatment plan. The patient is aware they should contact our office by phone for worsening of their current condition or the appearance of new urologic symptoms. Compliance is encouraged with any medications and followup testing that is ordered. It is a privilege to participate in the urologic care of your patient. If you have any questions or concerns regarding treatment for the above conditions, or other urologic issues, please do not hesitate to contact me. The office telephone contact is [phone]. This note is constructed using voice recognition software. While every effort has been made to ensure accuracy gas leak tester errors may have been included. Yours sincerely, Dr Eliezer Rivas MD, [facility] - Urology Providers of Expert, Compassionate Care for the Genitourinary System Coding Level of Care Code Est Pt Level 4 (35406) Complex EM visit Add On G2211 Diagnoses Bladder outlet obstruction N32.0 Hypogonadism in male E29.1
== END 2023-11-21 14:41 | disposition home or self-care (01) ==
PROVIDERS: PCP Internal Medicine; Referring Provider Internal Medicine; Visit Provider Urology
DX: N32.0 Bladder-neck obstruction (principal); E29.1 Testicular hypofunction
CPT/HCPCS: 99214; G2211

== ENCOUNTER → 2023-11-21 13:42 | Outpatient (BNVA) | payer MEDICAID, SELFPAY | PROVIDERS: PCP Internal Medicine; Visit Provider Urology | DX: E29.1 Testicular hypofunction (principal); N32.0 Bladder-neck obstruction | CPT/HCPCS: 99212 ==

== ENCOUNTER 2023-12-03 08:05 | Outpatient (REF) | payer MEDICAID, SELFPAY ==
[2023-12-03 11:42] LABS: Hematocrit 54.7 % (42.0-52.0); Hemoglobin 18.6 g/dl (14.0-18.0); Mean Corpuscular Hemoglobin 30.4 pg (27.0-33.0); Mean Corpuscular Volume 89.5 fL (80.0-98.0); Mean Platelet Volume 10.9 fL (9.4-12.4); Platelet Count 227 X10*3/uL (160-400); Red Blood Count 6.11 X10*6/uL (4.60-5.80); Red Cell Distribution Width 13.1 % (11.0-16.0); White Blood Count 6.9 X10*3/uL (4.8-10.8)
[2023-12-03 12:06] LABS: Alanine Aminotransferase 30 U/L (0-40); Albumin Level 4.4 g/dL (3.5-5.0); Alkaline Phosphatase 81 U/L (39-117); Anion Gap 15 (12-20); Aspartate Amino Transferase 19 U/L (5-37); Bilirubin Direct 0.3 mg/dL (0.0-0.5); Bilirubin Total 0.7 mg/dL (0.0-1.0); Blood Urea Nitrogen 7 mg/dL (9-16); Carbon Dioxide 30 mmol/L (22-29); Chloride 99 mmol/L (96-108); Cholesterol 77 mg/dL (<200); Estimated Glomerular Filt Rate > 60; Glucose Random 163 mg/dL (60-115); HDL Cholesterol 48 mg/dL (>40); LDL Cholesterol Calculated 14 mg/dL (<100); Potassium 4.8 mmol/L (3.3-5.1); Sodium 139 mmol/L (135-145); Triglycerides 75 mg/dL (<150)
[2023-12-03 12:14] LABS: Prostate Specific Antigen 0.64 ng/mL (<0.05-4.0)
[2023-12-07 00:24] LABS: Testosterone, Total 1229 ng/dL (250-1100)
== END 2023-12-03 08:06 | disposition home or self-care (01) ==
LOC: HO.HHCL 08:05
PROVIDERS: Urology; Visit Provider Internal Medicine
DX: I10 Essential (primary) hypertension (principal); E11.65 Type 2 diabetes mellitus with hyperglycemia; E29.1 Testicular hypofunction
CPT/HCPCS: 36415; 80048; 80061; 80076; 84153; 84403; 85027

== ENCOUNTER 2023-12-04 08:29 | Outpatient (AMB) | payer MEDICAID, SELFPAY ==
[2023-12-04 09:00] VITALS: BP 98/62; PULSE 96; O2SAT 96; BMI 26.3
--- NOTE | 2023-12-04 09:00 | MHC.OFFVIS ---
Vital Signs 12/04/23 09:00 Height 5 ft 6 in Weight 163 lb 2.273 oz BMI 26.3 BP 98/62 Blood Pressure Location Lt brachial Position Sitting Pulse 96 Pulse Source Pulse Oximeter Pulse Oximetry (%) 96 Oxygen Delivery Method Room Air Intake Visit Reasons: sleep disorder Intake Note: pt is here for follow up of SARTHAK and states he feels pretty good and no problems with cpap, he is feeling a dry throat and feels like it is closing when breathing. Timber Faller Required: Yes Timber Faller Name: Tachira Allergies No Known Allergies [No Known Allergies*] Allergy (Verified 12/04/23 09:18) Medication List - Last Reconciled 12/04/23 by Desi Bach MD alirocumab (Praluent Pen) 75 mg subcut Q2W aspirin (Adult Low Dose Aspirin) 81 mg PO DAILY bisacodyl (Dulcolax (bisacodyl)) 10 mg (2 x 5 mg) PO BEDTIME 2 days blood sugar diagnostic (FreeStyle Lite Strips) As directed blood-glucose meter (FreeStyle [place] Lite kit) As directed canagliflozin (Invokana) 100 mg PO DAILY cholecalciferol (vitamin D3) 25 mcg PO DAILY clopidogrel 75 mg PO DAILY dicyclomine 20 mg PO QID famotidine 40 mg PO BID fexofenadine (Allergy Relief (fexofenadine)) 180 mg PO DAILY gabapentin 400 mg PO TID glipizide ER 2.5 mg PO DAILY hydrocortisone 2.5% 1 appl PA BID PRN hydroxyzine HCl 1 tab PO BEDTIME PRN imipramine HCl 20 mg (2 x 10 mg) PO BEDTIME 30 days lancets (TRUEplus Lancets) As directed levothyroxine 25 mcg PO QAM lidocaine 5% (Lidoderm) 1 patch topical DAILY PRN sfkuok-xbvkeutk-bwzxhon 5,000-17,000- 24,000 unit (Zenpep) 1 cap PO QID loperamide 2 mg PO BID PRN lorazepam 2 mg PO DAILY PRN metformin 1,000 mg PO BID metoprolol succinate ER 50 mg PO DAILY needle (disp) 18 G (BD Regular [place]vel [place]) As directed - draw up testosterone needle (disp) 22 G To inject Testosterone nitroglycerin 0.4 mg sublingual Q5M PRN oxybutynin chloride ER 5 mg PO DAILY 90 days peg 3350-electrolytes 236-22.74-6.74 -5.86 gram (Golytely) 240 mL PO Q10M 1 day promethazine 25 mg PO Q12H PRN psyllium husk (Daily Fiber) 0.4 grams PO BID risperidone 4 mg PO BEDTIME rosuvastatin 20 mg PO BEDTIME sertraline 100 mg PO DAILY sertraline 50 mg PO 1200 syringe (disposable) (Monoject TB Luer Judy) As directed - use 18 needle to draw up testosterone and 22 to inject tamsulosin 0.4 mg PO BEDTIME 90 days testosterone cypionate 140 mg (0.7 mL) IM Q2W 28 days Do you need a note to return to daycare/school/sports/work: No HPI HPI sleep disorder: Details: 53 years old gentleman, Sinhala-speaking, of relatively simple mind, comes after 4 months for his sleep apnea. and usage of CPAP He has been relatively compliant and using CPAP every night except that on some nights he forgets to put it on. Overall his compliance is above. 70% His main issue is that he wakes up in the morning with a dry throat, and the water is still in the tank. He ends up sleeping only about 4 to 4-1/2 hours every night. Denies any daytime sleepiness. [facility] Medical History Nocturnal hypoxemia SARTHAK (obstructive sleep apnea) Hypogonadism in male On beta catherine at home Hypothyroid IBS (irritable bowel syndrome) BPH (benign prostatic hyperplasia) Anxiety Allergic rhinitis COLON (nonalcoholic steatohepatitis) Elevated AFP Decreased libido Type 2 diabetes mellitus with unspecified complications Other and unspecified hyperlipidemia Essential hypertension Atherosclerotic cardiovascular disease Hypogonadism in male Hypogonadism Surgical History History of esophagogastroduodenoscopy (EGD) Hx of colonoscopy History of cardiac cath History of cardiac cath History of cardiac cath Family History Father Cardiac disease Mother Cardiac disease Social History Are you a primary livestock caretaker to a significant other at home: No Do you presently have visiting nurse or other home services: No Alcohol intake: former Patient Tobacco Use Status: Former Tobacco user Quit Date: 3 yrs ago Tobacco use type: Cigarette Review of Systems Const All systems reviewed & are unremarkable except as noted in HPI and below Reports snoring (moderate ) Eyes Reports no additional complaints ENT Reports no additional complaints Card Denies chest pain (Intermittent angina), Denies irregular heart rhythm and Denies leg edema Resp Denies cough, Reports snoring (moderate ) and Denies wheezing GI Reports heartburn (GERD symptoms) Reports no additional complaints Musc Reports no additional complaints Skin/Breast Reports system reviewed and no additional complaints, except as documented Neuro Reports no additional complaints Psych Reports depression and Reports mood swings Endo Reports no additional complaints Kenneth/Lymph Reports no additional complaints Aller/Immun Reports no additional complaints and Denies wheezing Physical Exam Vital Signs: Last Vital Signs Pulse 96 12/04/23 09:00 BP 98/62 12/04/23 09:00 Pulse Ox 96 12/04/23 09:00 Oxygen Delivery Method Room Air 12/04/23 09:00 BMI result Body Mass Index 26.3 Const General: healthy appearing, comfortable, no acute distress, alert and awake Orientation/consciousness: patient oriented x3 HEENT Other: FACIAL FEATURES ARE, QUITE DISTINCT. HE HAS RELATIVELY FLAT NO O'S AND FACE, WITH REGRESSION OF THE LOWER JAW , CAUSING RETROGANTHIA Head: Yes normal to inspection General nose exam: No nasal polyps present and No nasal discharge present Face and sinus: Yes sinuses nontender Mouth: oropharynx abnormals (NARROW, WITH MALLAMPATI CLASS 3) Teeth and gingiva: other (RETROGANTHIA OF THE LOWER JAW) Throat: Yes posterior oropharynx normal Eyes General: appearance normal, both eyes and all related structures Neck Neck: Yes normal visual inspection, Yes no lymphadenopathy, Yes trachea midline and Yes no JVD Thyroid: Thyroid normal Chest Chest palpation & inspection: normal inspection of the chest, normal palpation of entire chest wall and no tenderness Resp Effort & Inspection: normal respiratory effort Auscultation: clear to auscultation bilaterally, no crackles and no wheezes Cardio Palpation: normal PMI Rate: regular rate Rhythm: regular rhythm Heart sounds: no gallops and no murmurs Peripheral pulses: Peripheral pulses 2+ throughout GI Palpation (GI): Soft to palpation, nontender, No hepatosplenomegaly present and no masses Auscultation: normal bowel sounds Back/Spine/Pelvis Thoracic/Lumbar Spine: thoracic and lumbar spine normal to inspection Skin General skin exam: no rashes or lesions noted Neuro General: patient oriented x3 and no focal motor deficits Cranial nerves: Yes CN's II-XII intact bilaterally Extrem General: Yes normal to inspection, Yes no clubbing, cyanosis or edema and Yes no calf tenderness Psych Appearance: grossly normal and well kempt Speech and movement: Normal speech and movement present Results Reviewed Results Reviewed: Compliance report is reviewed. He used / nights, 70% of the time. Average use it per night 4 hours 40 minutes. Pressure used mostly 12-13 cm. Only slight leak is noted. Residual AHI 2.6 Assessment & Plan Assessment & Plan (1) SARTHAK (obstructive sleep apnea): Comment: THIS GENTLEMAN IS OF NORMAL WEIGHT. 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 IT IS A PERMANENT MALFORMATION AND , ANY ATTEMPT FURTHER WEIGHT LOSS WOULD NOT HELP IN REDUCING HIS SLEEP APNEA. He has used the CPAP regularly and is compliant, but only about 70%. Also complains of dry throat in the mornings. It seems that his humidity is set at a lower level. He claims that his sleep is definitely better, and he is determined to continue using the CPAP every day. Code(s): G47.33 - Obstructive sleep apnea (adult) (pediatric) Category: Medical Plan: Explained to him about using CPAP every night. And at least. For 5 hours every night Explained to him about the humidity level and increase the humidification to a higher level. He may have to take his device to the DME provider, or he can bring the device to our office. He understands and promises to use it more regularly. He said he is planning to go to [place] for a week or so, and I advised him to take the CPAP machine with him. Coding Level of Care Code Est Pt Level 3 (38172) Diagnoses SARTHAK (obstructive sleep apnea) G47.33
== END 2023-12-04 09:20 | disposition home or self-care (01) ==
PROVIDERS: PCP Internal Medicine; Referring Provider Internal Medicine; Visit Provider Internal Medicine
DX: G47.33 Obstructive sleep apnea (adult) (pediatric) (principal)
CPT/HCPCS: 99213

== ENCOUNTER → 2023-12-04 08:29 | Outpatient (BNVA) | payer MEDICAID, SELFPAY | PROVIDERS: PCP Internal Medicine; Visit Provider Internal Medicine | DX: G47.33 Obstructive sleep apnea (adult) (pediatric) (principal) | CPT/HCPCS: 99212 ==

== ENCOUNTER 2023-12-11 10:10 | Outpatient (AMB) | payer MEDICAID, SELFPAY ==
--- NOTE | 2023-12-11 10:23 | MHC.OFFVIS ---
Vital Signs 12/11/23 10:51 Height 5 ft 6 in Weight 164 lb 7.437 oz BMI 26.5 BP 120/83 Blood Pressure Location Rt brachial Position Sitting Pulse 74 Intake Visit Reasons: 4 week follow up Intake Note: Patient in office today for 4 weeks follow up of IBS. CC: Patient states that his Imipramine was increased to x2 tablets daily but he started having extremely dry mouth and d/c the medication. Allergies No Known Allergies [No Known Allergies*] Allergy (Verified 12/11/23 10:55) HPI HPI 4 week follow up: Details: Assessment & Plan (1) GERD (gastroesophageal reflux disease): Code(s): K21.9 - Gastro-esophageal reflux disease without esophagitis Category: Medical (2) Irritable bowel syndrome with diarrhea: Code(s): K58.0 - Irritable bowel syndrome with diarrhea Category: Medical (3) Esophageal dysmotility: Comment: 2019 EGD more esophageal dysmotility than any other problem driving was then problems with dysphagia. Patient is on dicyclomine for this Code(s): K22.4 - Dyskinesia of esophagus Category: Medical Plan [place]ese #Shelia Live He found that the fiber pill constipated him so he stopped it. He is taking the imipramine qhs and it is helping but not with complete relief yet. He also finds that the TCA is helping his leg pain. I explain that this medicine is used for many purposes, including neuropathic pain, sleep and depression. He also continues on his famotidine and his Creon. ROV 4 weeks. Medications: Changed From imipramine HCl 10 mg PO BEDTIME 30 days 30 tabs 3RF K58.0 - Irritable bowel syndrome with diarrhea To imipramine HCl 20 mg (2 x 10 mg) PO BEDTIME 60 tabs 6RF 30 days K58.0 - Irritable bowel syndrome with diarrhea COLONOSCOPY Scheduled for 03/12/2024 BIOPSY TODAY'S VISIT [place] #Shelby Live With 2 or 20mg imipramine he has severe dry mouth, sticky throat feeling and some tachycardia. So he stopped completely, but I advise him to re start at the lower dose of 10mg qhs as this gave him significant relief. Also, he can layer over the bentyl prn and disover if we can get him even more relief. He has an appt in March for r/u after scope. BUT this is quite far out so we will follow up 5-6 weeks. FORMERLY [facility], [facility] Medical History Nocturnal hypoxemia SARTHAK (obstructive sleep apnea) Hypogonadism in male On beta catherine at home Hypothyroid IBS (irritable bowel syndrome) BPH (benign prostatic hyperplasia) Anxiety Allergic rhinitis COLON (nonalcoholic steatohepatitis) Elevated AFP Decreased libido Type 2 diabetes mellitus with unspecified complications Other and unspecified hyperlipidemia Essential hypertension Atherosclerotic cardiovascular disease Hypogonadism in male Hypogonadism Surgical History History of esophagogastroduodenoscopy (EGD) Hx of colonoscopy History of cardiac cath History of cardiac cath History of cardiac cath Family History Father Cardiac disease Mother Cardiac disease Social History Are you a primary disabilities caregiver to a significant other at home: No Do you presently have visiting nurse or other home services: No Alcohol intake: former Patient Tobacco Use Status: Former Tobacco user Quit Date: 3 yrs ago Tobacco use type: Cigarette Review of Systems Const Denies fatigue, Denies fever(s), Denies night sweats, Denies poor appetite and Denies weight loss Eyes Details: glasses Reports requires corrective lenses ENT Reports Normal hearing present, Denies dental pain, Denies dysphagia, Denies hearing loss, Denies mouth pain, Denies odynophagia, Denies throat swelling, Denies tongue swelling and Reports other (Dentition adequate) Card Reports no additional complaints Resp Reports no additional complaints GI Details: Reports abdominal pain, Denies melena, Reports bloating, Denies hematochezia, Reports constipation, Reports GI cramping, Denies dysphagia, Denies excessive flatus, Denies early satiety, Denies heartburn, Reports diarrhea, Denies nausea, Denies odynophagia, Denies vomiting and Denies hematemesis Skin/Breast Denies pruritus, Denies lesions, Denies rash and Denies jaundice Neuro Reports Normal hearing present and Denies Abnormal speech present Endo Denies fatigue Aller/Immun Denies throat swelling and Denies tongue swelling Physical Exam Vital Signs: Last Vital Signs Pulse 74 12/11/23 10:51 BP 120/83 12/11/23 10:51 BMI result Body Mass Index 26.5 Const General: cooperative, no acute distress, well developed and well groomed Nutritional Appearance: average body habitus and well nourished Orientation/consciousness: oriented to person, oriented to place and oriented to time Limitations: language barrier HEENT Head: Yes normocephalic and Yes atraumatic Eyes General: appearance normal, both eyes and all related structures Pupils: Equal, round and reactive pupils present Neck Neck: Yes normal visual inspection and Yes no lymphadenopathy Thyroid: Thyroid normal Resp Effort & Inspection: normal respiratory effort and able to speak in complete sentences Auscultation: clear to auscultation bilaterally Cardio Rate: regular rate Rhythm: regular rhythm Heart sounds: Normal, physiologic split S2 sound present Peripheral pulses: radial pulses present and posterior tibial pulses present GI Inspection: No distended and No Abdominal panniculus present Palpation (GI): Soft to palpation, nontender, no guarding, not rigid and No hepatosplenomegaly present Percussion: Yes normal to percussion Auscultation: normal bowel sounds Rectal Exam - Male: Yes deferred Skin General skin exam: no rashes or lesions noted, turgor normal, skin not dry, no jaundice, No spider nevi and no striae Rashes: no rashes Nails: normal Neuro General: oriented to person, oriented to place and oriented to time Cranial nerves: Yes Equal, round and reactive pupils present and Yes Normal hearing present Speech: No Abnormal speech present Extrem General: Yes normal to inspection, No clubbing, No cyanosis and No edema Psych Appearance: grossly normal and well kempt Mental Status: mental status grossly normal Speech and movement: Normal speech and movement present Affect: normal affect Attitude: cooperative Thought process: Normal thought process present and not confabulating Thought content: Normal thought content present Insight: Limited insight present (Psych) Judgement: Limited judgement present (Psych) Results Reviewed Results Reviewed: Laboratory Tests 12/03/23 08:09 Plt Count 227 Total Bilirubin 0.7 Direct Bilirubin 0.3 AST 19 ALT 30 Alkaline Phosphatase 81 Assessment & Plan Assessment & Plan (1) Irritable bowel syndrome with diarrhea: Code(s): K58.0 - Irritable bowel syndrome with diarrhea Category: Medical (2) GERD (gastroesophageal reflux disease): Code(s): K21.9 - Gastro-esophageal reflux disease without esophagitis Category: Medical (3) COLON (nonalcoholic steatohepatitis): Comment: 2019: AST/ALT 40/108 with a normal alk-phos, negative autoimmune workup, negative hepatitis a B and C, ferritin is normal at 130, GGT not elevated at 20, hCG tumor marker < 2 Alpha fetoprotein quite elevated at greater than 12 but liver functions are normal the autoimmune workup is normal he is negative for hepatitis B and C and his ultrasound does not show any masses. It is possible that this values being driven out by his injection cholesterol medication or even that has something to do with recently had TURP, MRI 02/2019 neg 07/23/2019?ALPHA-FETOPROTEIN,TUMOR MARKER 12.8??(ng/mL) 03/18/2019 ?ALPHA-FETOPROTEIN,TUMOR MARKER 13.0?AA * CURRENT LABS. 12/03/23 08:09 Plt Count 227 Total Bilirubin 0.7 Direct Bilirubin 0.3 AST 19 ALT 30 Alkaline Phosphatase 81 Ultrasound the abdomen 08/12/22? FINDINGS: PANCREAS: Obscured by bowel gas. LIVER: Normal. The liver is normal in size. The liver contour is normal. Parenchymal echogenicity is normal. No focal hepatic lesion. There is no intrahepatic biliary duct dilatation seen. GALLBLADDER: Normal. The gallbladder is physiologically distended without evidence of stones, sludge, polyps, wall thickening or pericholecystic fluid. COMMON BILE DUCT: Normal in caliber measuring 0.3 cm in diameter. RIGHT KIDNEY: Punctate echogenic foci without twinkle or shadowing may reflect a vascular reflector's. No hydronephrosis. No renal calculi or focal parenchymal lesions. The kidney measures 11.2 cm in maximum dimension. FREE FLUID: None. US/US abdomen limited IMPRESSION: ? Unremarkable sonographic appearance of the liver. ? Pancreas is obscured by bowel gas limiting evaluation. Code(s): K75.81 - Nonalcoholic steatohepatitis (COLON) Category: Medical (4) Esophageal dysmotility: Comment: 2018 EGD more esophageal dysmotility than any other problem driving was then problems with dysphagia. Patient is on dicyclomine for this Code(s): K22.4 - Dyskinesia of esophagus Category: Medical (5) Elevated AFP: Comment: No elevatin of HCG tumor marker, and no liver masses, Had referred him to see a physician and he was seen by Dr. Leyva who recommended only monitoring the AFP 07/23/2019?11:15:00 Result Recd:?07/29/2019?08:10:04Report:?07/23/2019 ?11:15:00 Requesting Physician:?Mary Kay AvalosOrdering Physician:?Mary Kay AvalosCopied: Mary Kay Avalos ALPHA-FETOPROTEIN,TUMOR MARKER NAMEVALUEREFERENCE RANGE FALPHA-FETOPROTEIN,TUMOR XGVXCY67.8??(ng/mL) * 03/18/2019 ALPHA-FETOPROTEIN,TUMOR MARKER NAMEVALUEREFERENCE RANGEFALPHA-FETOPROTEIN,TUMOR MARKER 13.0?AA * 07/31/22 Alpha Fetoprotein 14.5 H Code(s): R77.2 - Abnormality of alphafetoprotein Category: Medical Plan [place] #Shelby Live With 2 or 20mg imipramine he has severe dry mouth, sticky throat feeling and some tachycardia. So he stopped completely, but I advise him to re start at the lower dose of 10mg qhs as this gave him significant relief. Also, he can layer over the bentyl prn and discover if we can get him even more relief. He has an appt in March for r/u after scope. BUT this is quite far out so we will follow up 5-6 weeks. Medications: Changed From imipramine HCl 20 mg (2 x 10 mg) PO BEDTIME 30 days 60 tabs 6RF K58.0 - Irritable bowel syndrome with diarrhea To imipramine HCl 10 mg PO BEDTIME 30 tabs 6RF 30 days K58.0 - Irritable bowel syndrome with diarrhea Resumed dicyclomine 20 mg PO QID PRN 120 tabs 3RF for cramps K22.4 - Dyskinesia of esophagus dicyclomine 20 mg PO QID 120 tabs 3RF for cramps K22.4 - Dyskinesia of esophagus Coding Level of Care Code Est Pt Level 3 (98585) Diagnoses Irritable bowel syndrome with diarrhea K58.0 GERD (gastroesophageal reflux disease) K21.9 COLON (nonalcoholic steatohepatitis) K75.81 Esophageal dysmotility K22.4 Elevated AFP R77.2
[2023-12-11 10:51] VITALS: BP 120/83; PULSE 74; BMI 26.5
== END 2023-12-11 11:36 | disposition home or self-care (01) ==
PROVIDERS: PCP Internal Medicine; Visit Provider Nurse Practitioner
DX: K58.0 Irritable bowel syndrome with diarrhea (principal); K21.9 Gastro-esophageal reflux disease without esophagitis; K75.81 Nonalcoholic steatohepatitis (NASH); K22.4 Dyskinesia of esophagus; R77.2 Abnormality of alphafetoprotein
CPT/HCPCS: 99213

== ENCOUNTER → 2023-12-11 10:10 | Outpatient (BNVA) | payer MEDICAID, SELFPAY | PROVIDERS: PCP Internal Medicine; Visit Provider Nurse Practitioner | DX: K58.0 Irritable bowel syndrome with diarrhea (principal); K21.9 Gastro-esophageal reflux disease without esophagitis; K75.81 Nonalcoholic steatohepatitis (NASH); K22.4 Dyskinesia of esophagus; R77.2 Abnormality of alphafetoprotein | CPT/HCPCS: 99212 ==

== ENCOUNTER 2024-01-29 09:27 | Outpatient (AMB) | payer MEDICAID, SELFPAY ==
[2024-01-29 10:17] VITALS: BP 118/60; PULSE 69; BMI 26.3
--- NOTE | 2024-01-29 10:17 | A.OFFVIS_ITS ---
Vital Signs 01/29/24 10:17 Height 5 ft 6 in Weight 163 lb 2.273 oz BMI 26.3 BP 118/60 Blood Pressure Location Lt brachial Position Sitting Pulse 69 Pulse Source Monitor Intake Visit Reasons: 1 yr f/up Category Consultant Required: Yes Category Consultant Name: YENNI [id number] Allergies No Known Allergies [No Known Allergies*] Allergy (Verified 12/11/23 10:55) Medication List - Last Reconciled 01/29/24 by Bob Driscoll MD alirocumab (Praluent Pen) 75 mg subcut Q2W aspirin (Adult Low Dose Aspirin) 81 mg PO DAILY bisacodyl (Dulcolax (bisacodyl)) 10 mg (2 x 5 mg) PO BEDTIME 2 days blood sugar diagnostic (FreeStyle Lite Strips) As directed blood-glucose meter (FreeStyle [place] Lite kit) As directed canagliflozin (Invokana) 100 mg PO DAILY cholecalciferol (vitamin D3) 25 mcg PO DAILY clopidogrel 75 mg PO DAILY dicyclomine 20 mg PO QID PRN famotidine 40 mg PO BID fexofenadine (Allergy Relief (fexofenadine)) 180 mg PO DAILY gabapentin 400 mg PO TID glipizide ER 2.5 mg PO DAILY hydrocortisone 2.5% 1 appl [place] BID PRN hydroxyzine HCl 1 tab PO BEDTIME PRN imipramine HCl 10 mg PO BEDTIME 30 days lancets (TRUEplus Lancets) As directed levothyroxine 25 mcg PO QAM lidocaine 5% (Lidoderm) 1 patch topical DAILY PRN [id number] 5,000-17,000- 24,000 unit (Zenpep) 1 cap PO QID loperamide 2 mg PO BID PRN lorazepam 2 mg PO DAILY PRN metformin 1,000 mg PO BID metoprolol succinate ER 50 mg PO DAILY needle (disp) 18 G (BD Regular Bevel [place]) As directed - draw up testosterone needle (disp) 22 G To inject Testosterone nitroglycerin 0.4 mg sublingual Q5M PRN oxybutynin chloride ER 5 mg PO DAILY 90 days peg 3350-electrolytes 236-22.74-6.74 -5.86 gram (Golytely) 240 mL PO Q10M 1 day promethazine 25 mg PO Q12H PRN psyllium husk (Daily Fiber) 0.4 grams PO BID risperidone 4 mg PO BEDTIME rosuvastatin 20 mg PO BEDTIME sertraline 100 mg PO DAILY syringe (disposable) (Monoject TB Luer Judy) As directed - use 18 needle to draw up testosterone and 22 to inject tamsulosin 0.4 mg PO BEDTIME 90 days testosterone cypionate 140 mg (0.7 mL) IM Q2W 28 days HPI Comments Details: Owen returns for follow-up regarding coronary disease. He has a history of multiple stents placed in [place] few years back. He states he is feeling good. No complaints like angina or shortness of breath or in fact anything cardiac sounding. Compliant with medications. [facility] Medical History Nocturnal hypoxemia SARTHAK (obstructive sleep apnea) Hypogonadism in male On beta catherine at home Hypothyroid IBS (irritable bowel syndrome) BPH (benign prostatic hyperplasia) Anxiety Allergic rhinitis COLON (nonalcoholic steatohepatitis) Elevated AFP Decreased libido Type 2 diabetes mellitus with unspecified complications Other and unspecified hyperlipidemia Essential hypertension Atherosclerotic cardiovascular disease Hypogonadism in male Hypogonadism Surgical History History of esophagogastroduodenoscopy (EGD) Hx of colonoscopy History of cardiac cath History of cardiac cath History of cardiac cath Family History Father Cardiac disease Mother Cardiac disease Social History Are you a primary reproductive healthcare assistant to a significant other at home: No Do you presently have visiting nurse or other home services: No Alcohol intake: former Patient Tobacco Use Status: Former Tobacco user Tobacco use type: Cigarette Review of Systems Const Denies weakness ENT Denies dizziness Card Denies chest pain, Denies chest pain with activity, Denies syncope, Denies rapid heart rate, Denies pedal edema, Denies edema, Denies leg edema, Denies lightheadedness, Denies palpitations, Denies dyspnea, Denies dyspnea on exertion and Denies orthopnea Resp Denies cough, Denies dyspnea and Denies dyspnea on exertion GI Denies hematochezia and Denies change in stool character Musc Denies abnormal gait, Denies muscle cramps, Denies muscle weakness, Denies numbness, Denies radiating pain into limb and Denies tingling Neuro Denies abnormal gait, Denies dizziness, Denies syncope, Denies numbness, Denies tingling and Denies weakness Endo Denies palpitations Physical Exam Vital Signs: Last Vital Signs Pulse 69 01/29/24 10:17 BP 118/60 01/29/24 10:17 BMI result Body Mass Index 26.3 Const General: comfortable and no acute distress Orientation/consciousness: patient oriented x3 HEENT Other: Unremarkable Head: Yes normal to inspection Neck Neck: Yes normal visual inspection Chest Chest palpation & inspection: normal inspection of the chest Resp Auscultation: clear to auscultation bilaterally Cardio Palpation: normal PMI Heart sounds: S1 normal heart sound present, S2 normal heart sound present, no gallops, no murmurs and no rubs GI Palpation (GI): Soft to palpation Back/Spine/Pelvis Other: unremarkable Skin General skin exam: no rashes or lesions noted Neuro General: patient oriented x3 Extrem General: Yes normal to inspection Psych Mental Status: mental status grossly normal Office Procedures EKG Details: EKG with sinus rhythm at 69/Min; LVH with repolarization pattern. [place]. [id number], Complete Assessment & Plan Assessment & Plan (1) Atherosclerotic cardiovascular disease: Code(s): I25.10 - Atherosclerotic heart disease of [place] coronary artery without angina pectoris Category: Medical Plan: Cardiac catheterization/stenting of distal left main into proximal LAD from 2017; proximal circumflex and ostial LAD stents 2017. Myocardial perfusion imaging study from 2021 shows normal perfusion. No evidence of any ischemia or infarction. Echocardiogram from 2021 with normal LVEF at 60%. No wall motion abnormalities. No significant valvular issues. Clinically, no angina. He is on long-term dual antiplatelet therapy. = (2) Essential hypertension: Code(s): I10 - Essential (primary) hypertension Category: Medical Plan: Stable. No changes. (3) Other and unspecified hyperlipidemia: Code(s): E78.5 - Hyperlipidemia, unspecified Category: Medical Plan: On Praluent as well as statins. Most recent LDL 14 mg/dL. Triglycerides 75 mg/dL. (4) Type 2 diabetes mellitus with unspecified complications: Code(s): E11.8 - Type 2 diabetes mellitus with unspecified complications Category: Medical Plan: Last hemoglobin A1c is 7.1%. On glipizide and metformin. Coding Level of Care Code Est Pt Level 4 (75992) Diagnoses Atherosclerotic cardiovascular disease I25.10 Essential hypertension I10 Other and unspecified hyperlipidemia E78.5 Type 2 diabetes mellitus with unspecified complications E11.8 CPT Codes EKG - CPT: [id number], Complete ([id number])
== END 2024-01-29 10:48 | disposition home or self-care (01) ==
PROVIDERS: PCP Internal Medicine; Referring Provider Internal Medicine; Visit Provider Internal Medicine
DX: I25.10 Atherosclerotic heart disease of native coronary artery without angina pectoris (principal); I10 Essential (primary) hypertension; E78.5 Hyperlipidemia, unspecified; E11.8 Type 2 diabetes mellitus with unspecified complications
CPT/HCPCS: 93010; 99214

== ENCOUNTER → 2024-01-29 09:27 | Outpatient (BNVA) | payer MEDICAID, SELFPAY | PROVIDERS: PCP Internal Medicine; Visit Provider Internal Medicine | DX: I25.10 Atherosclerotic heart disease of native coronary artery without angina pectoris (principal); I10 Essential (primary) hypertension; E78.5 Hyperlipidemia, unspecified; E11.8 Type 2 diabetes mellitus with unspecified complications; R94.31 Abnormal electrocardiogram [ECG] [EKG]; I51.7 Cardiomegaly | CPT/HCPCS: 93005; 99212 ==

== ENCOUNTER 2024-02-03 10:22 | Outpatient (AMB) | payer MEDICAID, SELFPAY ==
--- NOTE | 2024-02-03 10:43 | MHC.OFFVIS ---
Vital Signs 02/03/24 10:52 Height 5 ft 6 in Weight 161 lb BMI 26.0 BP 119/76 Blood Pressure Location Lt brachial Position Sitting Pulse 69 Intake Visit Reasons: Follow up 8 weeks Intake Note: Patient 8 week follow up for Elevated AFP. Patient cc: slight abdominal pain, tiredness, fatigue /no energy, acid reflex with some burning sensation on and off, constipation and some difficulty swallowing. Retail Assistant Required: Yes Retail Assistant Name: Rohit Patterson [id number] Accompanied by: Self / Same As Patient Allergies No Known Allergies [No Known Allergies*] Allergy (Verified 02/03/24 10:50) HPI HPI Follow up 8 weeks: Details: Assessment & Plan (1) Irritable bowel syndrome with diarrhea: Code(s): K58.0 - Irritable bowel syndrome with diarrhea Category: Medical (2) GERD (gastroesophageal reflux disease): Code(s): K21.9 - Gastro-esophageal reflux disease without esophagitis Category: Medical (3) COLON (nonalcoholic steatohepatitis): Comment: 2019: AST/ALT 40/108 with a normal alk-phos, negative autoimmune workup, negative hepatitis a B and C, ferritin is normal at 130, GGT not elevated at 20, hCG tumor marker < 2 Alpha fetoprotein quite elevated at greater than 12 but liver functions are normal the autoimmune workup is normal he is negative for hepatitis B and C and his ultrasound does not show any masses. It is possible that this values being driven out by his injection cholesterol medication or even that has something to do with recently had TURP, MRI 02/2019 neg 07/23/2019?ALPHA-FETOPROTEIN,TUMOR MARKER 12.8??(ng/mL) 03/18/2019 ?ALPHA-FETOPROTEIN,TUMOR MARKER 13.0?AA * CURRENT LABS. 12/03/23 08:09 Plt Count 227 Total Bilirubin 0.7 Direct Bilirubin 0.3 AST 19 ALT 30 Alkaline Phosphatase 81 Ultrasound the abdomen 08/12/22? FINDINGS: PANCREAS: Obscured by bowel gas. LIVER: Normal. The liver is normal in size. The liver contour is normal. Parenchymal echogenicity is normal. No focal hepatic lesion. There is no intrahepatic biliary duct dilatation seen. GALLBLADDER: Normal. The gallbladder is physiologically distended without evidence of stones, sludge, polyps, wall thickening or pericholecystic fluid. COMMON BILE DUCT: Normal in caliber measuring 0.3 cm in diameter. RIGHT KIDNEY: Punctate echogenic foci without twinkle or shadowing may reflect a vascular reflector's. No hydronephrosis. No renal calculi or focal parenchymal lesions. The kidney measures 11.2 cm in maximum dimension. FREE FLUID: None. US/US abdomen limited IMPRESSION: ? Unremarkable sonographic appearance of the liver. ? Pancreas is obscured by bowel gas limiting evaluation. Code(s): K75.81 - Nonalcoholic steatohepatitis (COLON) Category: Medical (4) Esophageal dysmotility: Comment: 2018 EGD more esophageal dysmotility than any other problem driving was then problems with dysphagia. Patient is on dicyclomine for this Code(s): K22.4 - Dyskinesia of esophagus Category: Medical (5) Elevated AFP: Comment: No elevatin of HCG tumor marker, and no liver masses, Had referred him to see a physician and he was seen by Dr. Leyva who recommended only monitoring the AFP 07/23/2019?11:15:00 Result Recd:?07/29/2019?08:10:04Report:?07/23/2019 ?11:15:00 Requesting Physician:?Mary Kay AvalosOrdering Physician:?Mary Kay AvalosCopied: Avalos,Mary Kay ALPHA-FETOPROTEIN,TUMOR MARKER NAMEVALUEREFERENCE RANGE FALPHA-FETOPROTEIN,TUMOR AGPIET95.8??(ng/mL) * 03/18/2019 ALPHA-FETOPROTEIN,TUMOR MARKER NAMEVALUEREFERENCE RANGEFALPHA-FETOPROTEIN,TUMOR MARKER 13.0?AA * 07/31/22 Alpha Fetoprotein 14.5 H Code(s): R77.2 - Abnormality of alphafetoprotein Category: Medical Plan [place] #Shelby Live With 2 or 20mg imipramine he has severe dry mouth, sticky throat feeling and some tachycardia. So he stopped completely, but I advise him to re start at the lower dose of 10mg qhs as this gave him significant relief. Also, he can layer over the bentyl prn and discover if we can get him even more relief. He has an appt in March for r/u after scope. BUT this is quite far out so we will follow up 5-6 weeks. Medications: Changed From imipramine HCl 20 mg (2 x 10 mg) PO BEDTIME 30 days 60 tabs 6RF K58.0 - Irritable bowel syndrome with diarrhea To imipramine HCl 10 mg PO BEDTIME 30 tabs 6RF 30 days K58.0 - Irritable bowel syndrome with diarrhea Resumed dicyclomine 20 mg PO QID PRN 120 tabs 3RF for cramps K22.4 - Dyskinesia of esophagus dicyclomine 20 mg PO QID 120 tabs 3RF for cramps K22.4 - Dyskinesia of esophagus COLONOSCOPY 04/13/2024 BIOPSY TODAY'S VISIT [place] #[id number] He reduced the imipramine to just 10mg qhs (20 gave him too many s/e such as drowsiness dry mouth), and along with the bentyl this is giving him some relief w/o s/e. He is only using the bentyl prn, and I educate him he can take this scheduled to see if he can keep the pain away, like qd or bid/tid. He also continues on his Zenpep, a fiber supplement, and famotidine twice a day with good control of his GERD. Keep Sept appt after colonoscopy [facility] History Nocturnal hypoxemia SARTHAK (obstructive sleep apnea) Hypogonadism in male On beta catherine at home Hypothyroid IBS (irritable bowel syndrome) BPH (benign prostatic hyperplasia) Anxiety Allergic rhinitis COLON (nonalcoholic steatohepatitis) Elevated AFP Decreased libido Type 2 diabetes mellitus with unspecified complications Other and unspecified hyperlipidemia Essential hypertension Atherosclerotic cardiovascular disease Hypogonadism in male Hypogonadism Surgical History History of esophagogastroduodenoscopy (EGD) Hx of colonoscopy History of cardiac cath History of cardiac cath History of cardiac cath Family History Father Cardiac disease Mother Cardiac disease Social History Are you a primary healthcare advisory services manager to a significant other at home: No Do you presently have visiting nurse or other home services: No Alcohol intake: former Patient Tobacco Use Status: Former Tobacco user Tobacco use type: Cigarette Review of Systems Const Denies fatigue, Denies fever(s), Denies night sweats, Denies poor appetite and Denies weight loss Eyes Details: gl;asses Reports requires corrective lenses ENT Reports Normal hearing present, Denies dental pain, Denies dysphagia, Denies hearing loss, Denies mouth pain, Denies odynophagia, Denies throat swelling, Denies tongue swelling and Reports other (Dentition adequate) Card Reports no additional complaints Resp Reports no additional complaints GI Details: Denies abdominal pain, Denies melena, Reports bloating, Denies hematochezia, Denies constipation, Reports GI cramping, Denies dysphagia, Denies excessive flatus, Denies early satiety, Reports heartburn, Reports diarrhea, Denies nausea, Denies odynophagia, Denies vomiting and Denies hematemesis Skin/Breast Denies pruritus, Denies lesions, Denies rash and Denies jaundice Neuro Reports Normal hearing present and Denies Abnormal speech present Endo Denies fatigue Aller/Immun Denies throat swelling and Denies tongue swelling Physical Exam Vital Signs: Last Vital Signs Pulse 69 02/03/24 10:52 BP 119/76 02/03/24 10:52 BMI result Body Mass Index 26.0 Const General: cooperative, no acute distress, well developed and well groomed Nutritional Appearance: average body habitus and well nourished Orientation/consciousness: oriented to person, oriented to place and oriented to time Limitations: language barrier HEENT Head: Yes normocephalic and Yes atraumatic Eyes General: appearance normal, both eyes and all related structures Pupils: Equal, round and reactive pupils present Neck Neck: Yes normal visual inspection and Yes no lymphadenopathy Thyroid: Thyroid normal Resp Effort & Inspection: normal respiratory effort and able to speak in complete sentences Auscultation: clear to auscultation bilaterally Cardio Rate: regular rate Rhythm: regular rhythm Heart sounds: Normal, physiologic split S2 sound present Peripheral pulses: radial pulses present and posterior tibial pulses present GI Inspection: Yes distended and No Abdominal panniculus present Palpation (GI): Soft to palpation, Tenderness to palpation present (GI) (Mild periumbilical), no guarding, not rigid and No hepatosplenomegaly present Percussion: Yes normal to percussion Auscultation: normal bowel sounds Rectal Exam - Male: Yes deferred Skin General skin exam: no rashes or lesions noted, turgor normal, skin not dry, no jaundice, No spider nevi and no striae Rashes: no rashes Nails: normal Neuro General: oriented to person, oriented to place and oriented to time Cranial nerves: Yes Equal, round and reactive pupils present and Yes Normal hearing present Speech: No Abnormal speech present Extrem General: Yes normal to inspection, No clubbing, No cyanosis and No edema Psych Appearance: grossly normal and well kempt Mental Status: mental status grossly normal Speech and movement: Normal speech and movement present Affect: normal affect Attitude: cooperative Thought process: Normal thought process present and not confabulating Thought content: Normal thought content present Insight: Limited insight present (Psych) Judgement: Limited judgement present (Psych) Assessment & Plan Assessment & Plan (1) Irritable bowel syndrome with diarrhea: Code(s): K58.0 - Irritable bowel syndrome with diarrhea Category: Medical (2) Tubular adenoma of colon: Comment: 2020=ta REPEAT 5 YEARS, 2019 scoped, sessile repeat 1-2 years, 1-2 cm in size with 3-4 smaller polyps Code(s): D12.6 - Benign neoplasm of colon, unspecified Category: Medical (3) GERD (gastroesophageal reflux disease): Code(s): K21.9 - Gastro-esophageal reflux disease without esophagitis Category: Medical Plan [place] #[id number] He reduced the imipramine to just 10mg qhs (20 gave him too many s/e such as drowsiness dry mouth), and along with the bentyl this is giving him some relief w/o s/e. He is only using the bentyl prn, and I educate him he can take this scheduled to see if he can keep the pain away, like qd or bid/tid. He also continues on his Zenpep, a fiber supplement, and famotidine twice a day with good control of his GERD. Keep Sept appt after colonoscopy; he will be due for repeat liver monitoring in May. He has a history of an elevated AST without an explanation. Coding Level of Care Code Est Pt Level 3 (88475) Diagnoses Irritable bowel syndrome with diarrhea K58.0 Tubular adenoma of colon D12.6 GERD (gastroesophageal reflux disease) K21.9
[2024-02-03 10:52] VITALS: BP 119/76; PULSE 69; BMI 26.0
== END 2024-02-03 11:51 | disposition home or self-care (01) ==
PROVIDERS: PCP Internal Medicine; Visit Provider Nurse Practitioner
DX: K58.0 Irritable bowel syndrome with diarrhea (principal); D12.6 Benign neoplasm of colon, unspecified; K21.9 Gastro-esophageal reflux disease without esophagitis
CPT/HCPCS: 99213

== ENCOUNTER → 2024-02-03 10:22 | Outpatient (BNVA) | payer MEDICAID, SELFPAY | PROVIDERS: PCP Internal Medicine; Visit Provider Nurse Practitioner | DX: K58.0 Irritable bowel syndrome with diarrhea (principal); K21.9 Gastro-esophageal reflux disease without esophagitis; K75.81 Nonalcoholic steatohepatitis (NASH); K22.4 Dyskinesia of esophagus; R77.2 Abnormality of alphafetoprotein; D12.6 Benign neoplasm of colon, unspecified | CPT/HCPCS: 99212 ==

== ENCOUNTER 2024-03-26 09:30 | Outpatient (AMB) | payer MEDICAID, SELFPAY ==
--- NOTE | 2024-03-26 09:47 | A.OFFVIS_ITS ---
Vital Signs 03/26/24 09:52 Height 5 ft 6 in Weight 164 lb 14.492 oz BMI 26.6 BP 124/91 H Blood Pressure Location Lt brachial Position Sitting Pulse 78 Intake Visit Reasons: appt per october Intake Note: Owen presents to in office follow up. CC: Patient reports that he is feeling well. Denies having any new GI concerns. Allergies No Known Allergies [No Known Allergies*] Allergy (Verified 03/26/24 09:54) HPI HPI appt per october: Details: Assessment & Plan (1) Irritable bowel syndrome with diarrhea: Code(s): K58.0 - Irritable bowel syndrome with diarrhea Category: Medical (2) Tubular adenoma of colon: Comment: 2020=ta REPEAT 5 YEARS, 2019 scoped, sessile repeat 1-2 years, 1-2 cm in size with 3-4 smaller polyps Code(s): D12.6 - Benign neoplasm of colon, unspecified Category: Medical (3) GERD (gastroesophageal reflux disease): Code(s): K21.9 - Gastro-esophageal reflux disease without esophagitis Category: Medical Plan [place] #[id number] He reduced the imipramine to just 10mg qhs (20 gave him too many s/e such as drowsiness dry mouth), and along with the bentyl this is giving him some relief w/o s/e. He is only using the bentyl prn, and I educate him he can take this scheduled to see if he can keep the pain away, like qd or bid/tid. He also continues on his Zenpep, a fiber supplement, and famotidine twice a day with good control of his GERD. Keep Sept appt after colonoscopy; he will be due for repeat liver monitoring in May. He has a history of an elevated AST without an explanation. COLONOSCOPY 08/30/2024 BIOPSY TODAY'S VISIT [place] #Toni Live The colonoscopy had to be rescheduled r/t he ate because he did not receive the written instructions. He continues to do well on his imipramine at 10 mg and if he has occasional breakthrough he then uses the dicyclomine. Again, he was too sleepy had too much dry mouth on the 20 mg imipramine dose. Also continues on his famotidine twice a day, his Zenpep, and his fiber supplement. At this point we will keep his appointment in August after the colonoscopy. [facility] Medical History (Updated 12/11/23 @ 16:35 by JORDAN Corey) Nocturnal hypoxemia SARTHAK (obstructive sleep apnea) Hypogonadism in male On beta catherine at home Hypothyroid IBS (irritable bowel syndrome) BPH (benign prostatic hyperplasia) Anxiety Allergic rhinitis COLON (nonalcoholic steatohepatitis) Elevated AFP Decreased libido Type 2 diabetes mellitus with unspecified complications Other and unspecified hyperlipidemia Essential hypertension Atherosclerotic cardiovascular disease Hypogonadism in male Hypogonadism Surgical History (Updated 03/10/24 @ 10:00 by Sara Ward RN) History of esophagogastroduodenoscopy (EGD) Hx of colonoscopy History of cardiac cath History of cardiac cath Family History Father Cardiac disease Mother Cardiac disease Social History Are you a primary career technical education teacher to a significant other at home: No Do you presently have visiting nurse or other home services: No Alcohol intake: former Patient Tobacco Use Status: Former Tobacco user Tobacco use type: Cigarette Review of Systems Const Denies fatigue, Denies fever(s), Denies night sweats, Denies poor appetite and Denies weight loss Eyes Details: glasses Reports requires corrective lenses ENT Reports Normal hearing present, Denies dental pain, Denies dysphagia, Denies hearing loss, Denies mouth pain, Denies odynophagia, Denies throat swelling, Denies tongue swelling and Reports other (Dentition adequate) Card Reports no additional complaints Resp Reports no additional complaints GI Details: Denies abdominal pain, Denies melena, Reports bloating, Denies hematochezia, Denies constipation, Reports GI cramping, Denies dysphagia, Denies excessive flatus, Denies early satiety, Reports heartburn, Reports diarrhea, Denies nausea, Denies odynophagia, Denies vomiting and Denies hematemesis Skin/Breast Denies pruritus, Denies lesions, Denies rash and Denies jaundice Neuro Reports Normal hearing present and Denies Abnormal speech present Endo Denies fatigue Aller/Immun Denies throat swelling and Denies tongue swelling Physical Exam Vital Signs: Last Vital Signs Pulse 78 03/26/24 09:52 BP 124/91 H 03/26/24 09:52 BMI result Body Mass Index 26.6 Const General: cooperative, no acute distress, well developed and well groomed Nutritional Appearance: well nourished Orientation/consciousness: oriented to person, oriented to place and oriented to time Limitations: language barrier HEENT Head: Yes normocephalic and Yes atraumatic Eyes General: appearance normal, both eyes and all related structures Pupils: Equal, round and reactive pupils present Neck Neck: Yes normal visual inspection and Yes no lymphadenopathy Thyroid: Thyroid normal Resp Effort & Inspection: normal respiratory effort and able to speak in complete sentences Auscultation: clear to auscultation bilaterally Cardio Rate: regular rate Rhythm: regular rhythm Heart sounds: Normal, physiologic split S2 sound present Peripheral pulses: radial pulses present and posterior tibial pulses present GI Inspection: No distended and No Abdominal panniculus present Palpation (GI): Soft to palpation, nontender, no guarding, not rigid and No hepatosplenomegaly present Percussion: Yes normal to percussion Auscultation: normal bowel sounds Rectal Exam - Male: Yes deferred Skin General skin exam: no rashes or lesions noted, turgor normal, skin not dry, no jaundice, No spider nevi and no striae Rashes: no rashes Nails: normal Neuro General: oriented to person, oriented to place and oriented to time Cranial nerves: Yes Equal, round and reactive pupils present and Yes Normal hearing present Speech: No Abnormal speech present Extrem General: Yes normal to inspection, No clubbing, No cyanosis and No edema Psych Appearance: grossly normal and well kempt Mental Status: mental status grossly normal Speech and movement: Normal speech and movement present Affect: normal affect Attitude: cooperative Thought process: Normal thought process present and not confabulating Thought content: Normal thought content present Insight: Limited insight present (Psych) Judgement: Limited judgement present (Psych) Assessment & Plan Assessment & Plan (1) Irritable bowel syndrome with diarrhea: Code(s): K58.0 - Irritable bowel syndrome with diarrhea Category: Medical (2) GERD (gastroesophageal reflux disease): Code(s): K21.9 - Gastro-esophageal reflux disease without esophagitis Category: Medical (3) Tubular adenoma of colon: Comment: 2020=ta REPEAT 5 YEARS, 2019 scoped, sessile repeat 1-2 years, 1-2 cm in size with 3-4 smaller polyps Code(s): D12.6 - Benign neoplasm of colon, unspecified Category: Medical Plan [place] #Toni Live The colonoscopy had to be rescheduled r/t he ate because he did not receive the written instructions. He continues to do well on his imipramine at 10 mg and if he has occasional breakthrough he then uses the dicyclomine. Again, he was too sleepy had too much dry mouth on the 20 mg imipramine dose. Also continues on his famotidine twice a day, his Zenpep, and his fiber supplement. At this point we will keep his appointment in August after the colonoscopy. COLONOSCOPY 08/30/2024 BIOPSY Medications: Refilled bisacodyl (Dulcolax (bisacodyl)) 10 mg (2 x 5 mg) PO BEDTIME 4 tabs 0RF 2 days imipramine HCl 10 mg PO BEDTIME 30 tabs 6RF 30 days K58.0 - Irritable bowel syndrome with diarrhea [id number]-lddddoee-sqcduvp 5,000-17,000- 24,000 unit (Zenpep) 1 cap PO QID 120 caps 6RF K58.0 - Irritable bowel syndrome with diarrhea dicyclomine 20 mg PO QID PRN 120 tabs 3RF for cramps K22.4 - Dyskinesia of esophagus peg 3350-electrolytes 236-22.74-6.74 -5.86 gram (Golytely) until fecal effluent is clear; do not exceed a total volume of 2,000 mL 240 mL PO Q10M 4,000 mL 0RF 1 day Z12.11 - Encounter for screening for malignant neoplasm of colon Coding Level of Care Code Est Pt Level 3 (97966) Diagnoses Irritable bowel syndrome with diarrhea K58.0 GERD (gastroesophageal reflux disease) K21.9 Tubular adenoma of colon D12.6
[2024-03-26 09:52] VITALS: BP 124/91; PULSE 78; BMI 26.6
== END 2024-03-26 10:20 | disposition home or self-care (01) ==
PROVIDERS: PCP Internal Medicine; Visit Provider Nurse Practitioner
DX: K58.0 Irritable bowel syndrome with diarrhea (principal); K21.9 Gastro-esophageal reflux disease without esophagitis; D12.6 Benign neoplasm of colon, unspecified
CPT/HCPCS: 99213

== ENCOUNTER → 2024-03-26 09:30 | Outpatient (BNVA) | payer MEDICAID, SELFPAY | PROVIDERS: PCP Internal Medicine; Visit Provider Nurse Practitioner | DX: K58.0 Irritable bowel syndrome with diarrhea (principal); D12.6 Benign neoplasm of colon, unspecified; K21.9 Gastro-esophageal reflux disease without esophagitis | CPT/HCPCS: 99212 ==

== ENCOUNTER 2024-04-07 10:01 | Outpatient (AMB) | payer MEDICAID, SELFPAY ==
--- NOTE | 2024-04-07 10:22 | A.OFFVIS_ITS ---
Vital Signs 04/07/24 10:24 Height 5 ft 6 in Weight 163 lb BMI 26.3 BP 124/84 Blood Pressure Location Lt brachial Position Sitting Respiration 15 Pulse 63 Pulse Source Pulse Oximeter Pulse Oximetry (%) 98 Oxygen Delivery Method Room Air Intake Visit Reasons: RIGHT HIP PAIN Risk Professional Required: Yes Risk Professional Name: Belinda Allergies No Known Allergies [No Known Allergies*] Allergy (Verified 04/07/24 10:25) Medication List - Last Reconciled 04/07/24 by Waleska Ku LPN alirocumab (Praluent Pen) 75 mg subcut Q2W aspirin (Adult Low Dose Aspirin) 81 mg PO DAILY bisacodyl (Dulcolax (bisacodyl)) 10 mg (2 x 5 mg) PO BEDTIME 2 days blood sugar diagnostic (FreeStyle Lite Strips) As directed blood-glucose meter (FreeStyle Morrice Lite kit) As directed canagliflozin (Invokana) 100 mg PO DAILY cholecalciferol (vitamin D3) 25 mcg PO DAILY clopidogrel 75 mg PO DAILY cyclobenzaprine 5 mg PO TID dicyclomine 20 mg PO QID PRN famotidine 40 mg PO BID fexofenadine 180 mg PO DAILY gabapentin 400 mg PO TID glipizide ER 2.5 mg PO DAILY hydrocortisone 2.5% (Procto-Med HC) 1 appl NC BID PRN hydroxyzine HCl 1 tab PO BEDTIME PRN imipramine HCl 10 mg PO BEDTIME 30 days lancets (TRUEplus Lancets) As directed levothyroxine 25 mcg PO QAM lidocaine 5% (Lidoderm) 1 patch topical DAILY PRN pfwizd-peadvaqp-veyuraf 5,000-17,000- 24,000 unit (Zenpep) 1 cap PO QID loperamide 2 mg PO BID PRN lorazepam 2 mg PO DAILY PRN metformin 1,000 mg PO BID metoprolol succinate ER 50 mg PO DAILY needle (disp) 18 G (BD Regular Bevel [place]) As directed - draw up testosterone needle (disp) 22 G To inject Testosterone nitroglycerin 0.4 mg sublingual Q5M PRN oxybutynin chloride ER 5 mg PO DAILY 90 days peg 3350-electrolytes 236-22.74-6.74 -5.86 gram (Golytely) 240 mL PO Q10M 1 day promethazine 25 mg PO Q12H PRN risperidone 4 mg PO BEDTIME rosuvastatin 20 mg PO BEDTIME sertraline 100 mg PO DAILY sertraline 50 mg PO DAILY syringe (disposable) (Monoject TB Luer Judy) As directed - use 18 needle to draw up testosterone and 22 to inject tamsulosin 0.4 mg PO BEDTIME 90 days testosterone cypionate 140 mg (0.7 mL) IM Q2W 28 days PFSH Medical History (Updated 12/11/23 @ 16:35 by JORDAN Corey) Nocturnal hypoxemia SARTHAK (obstructive sleep apnea) Hypogonadism in male On beta catherine at home Hypothyroid IBS (irritable bowel syndrome) BPH (benign prostatic hyperplasia) Anxiety Allergic rhinitis COLON (nonalcoholic steatohepatitis) Elevated AFP Decreased libido Type 2 diabetes mellitus with unspecified complications Other and unspecified hyperlipidemia Essential hypertension Atherosclerotic cardiovascular disease Hypogonadism in male Hypogonadism Surgical History (Updated 03/10/24 @ 10:00 by Sara Ward RN) History of esophagogastroduodenoscopy (EGD) Hx of colonoscopy History of cardiac cath History of cardiac cath Family History Father Cardiac disease Mother Cardiac disease Social History Are you a primary director of patient care to a significant other at home: No Do you presently have visiting nurse or other home services: No Alcohol intake: former Patient Tobacco Use Status: Former Tobacco user Tobacco use type: Cigarette Physical Exam Vital Signs: Last Vital Signs Pulse 63 04/07/24 10:24 Resp 15 04/07/24 10:24 BP 124/84 04/07/24 10:24 Pulse Ox 98 04/07/24 10:24 Oxygen Delivery Method Room Air 04/07/24 10:24 BMI result Body Mass Index 26.3 Office Procedures Joint Injection/Aspiration Joint Injection/Aspiration Details: Right hip injection, ultrasound guided Prep: site was prepped using sterile technique Injected: 40 mg of, Kenalog and with 3 mL of (normal saline) Approach Used: anterior Procedure: The patient tolerated the procedure well Coding Details: An image of the ultrasound guided injection was taken and saved to the patient's permanent record. 02046 - Large joint Procedure code (CPT) selection complete Assessment & Plan Assessment & Plan (1) Right hip pain: Code(s): M25.551 - Pain in right hip Category: Medical Plan Patient is status post ultrasound-guided right hip intra-articular steroid injection. Patient tolerated procedure well and was discharged home in stable co ndition with discharge instructions. All questions were answered. Follow-up as needed. Coding Level of Care Code Procedure Only Diagnoses Right hip pain M25.551 CPT Codes Coding - 17047 Large joint: 00955 - Large joint ([id number])
[2024-04-07 10:24] VITALS: BP 124/84; PULSE 63; RESP 15; O2SAT 98; BMI 26.3
== END 2024-04-07 10:40 | disposition home or self-care (01) ==
PROVIDERS: PCP Internal Medicine; Referring Provider Internal Medicine; Visit Provider Internal Medicine
DX: M25.551 Pain in right hip (principal)
CPT/HCPCS: 20611

== ENCOUNTER → 2024-04-07 10:01 | Outpatient (BNVA) | payer MEDICAID, SELFPAY | PROVIDERS: PCP Internal Medicine; Visit Provider Internal Medicine | DX: M25.551 Pain in right hip (principal) | CPT/HCPCS: 20611; J2795; J3301 ==

== ENCOUNTER 2024-05-11 07:41 | Outpatient (REF) | payer MEDICAID, SELFPAY ==
[2024-05-11 08:23] LABS: Hematocrit 51.1 % (42.0-52.0); Hemoglobin 17.6 g/dl (14.0-18.0); Mean Corpuscular HGB Conc 34.4 g/dl (31.0-36.0); Mean Corpuscular Hemoglobin 30.3 pg (27.0-33.0); Mean Platelet Volume 11.1 fL (9.4-12.4); Platelet Count 242 X10*3/uL (160-400); Red Blood Count 5.81 X10*6/uL (4.60-5.80); Red Cell Distribution Width 13.2 % (11.0-16.0); White Blood Count 6.8 X10*3/uL (4.8-10.8)
[2024-05-16 15:03] LABS: Testosterone, Total 1061 ng/dL (250-1100)
== END 2024-05-11 07:42 | disposition home or self-care (01) ==
LOC: HO.LAB 07:41
PROVIDERS: PCP Internal Medicine; Visit Provider Urology
DX: E29.1 Testicular hypofunction (principal)
CPT/HCPCS: 36415; 84153; 84402; 84403; 85027

== ENCOUNTER 2024-05-20 10:15 | Outpatient (AMB) | payer MEDICAID, SELFPAY ==
[2024-05-20 10:35] VITALS: BP 102/68; PULSE 56; O2SAT 97; BMI 26.9
--- NOTE | 2024-05-20 10:35 | A.OFFVIS_ITS ---
Vital Signs 05/20/24 10:35 Height 5 ft 6 in Weight 166 lb 7.184 oz BMI 26.9 BP 102/68 Blood Pressure Location Lt brachial Position Sitting Pulse 56 Pulse Source Pulse Oximeter Pulse Oximetry (%) 97 Oxygen Delivery Method Room Air Intake Visit Reasons: sleep disorder Intake Note: pt is here for follow up of SARTHAK/sleep disorder, he is feeling good, he did have some short of breath x2 when sleeping, using cpap every night. Electronic Scanner Operator Required: Yes Electronic Scanner Operator Services: Electronic Scanner Operator Present Electronic Scanner Operator Name: Joann KNOTT ([facility]) Allergies No Known Allergies [No Known Allergies*] Allergy (Verified 05/20/24 10:46) Medication List - Last Reconciled 05/20/24 by Desi Bach MD alirocumab (Praluent Pen) 75 mg subcut Q2W aspirin (Adult Low Dose Aspirin) 81 mg PO DAILY bisacodyl (Dulcolax (bisacodyl)) 10 mg (2 x 5 mg) PO BEDTIME 2 days blood sugar diagnostic (FreeStyle Lite Strips) As directed blood-glucose meter (FreeStyle [place] Lite kit) As directed canagliflozin (Invokana) 100 mg PO DAILY cholecalciferol (vitamin D3) 25 mcg PO DAILY clopidogrel 75 mg PO DAILY cyclobenzaprine 5 mg PO TID dicyclomine 20 mg PO QID PRN famotidine 40 mg PO BID fexofenadine 180 mg PO DAILY gabapentin 400 mg PO TID glipizide ER 2.5 mg PO DAILY hydrocortisone 2.5% (Procto-Med HC) 1 appl [place] BID PRN hydroxyzine HCl 1 tab PO BEDTIME PRN imipramine HCl 10 mg PO BEDTIME 30 days lancets (TRUEplus Lancets) As directed levothyroxine 25 mcg PO QAM lidocaine 5% (Lidoderm) 1 patch topical DAILY PRN [id number] 5,000-17,000- 24,000 unit (Zenpep) 1 cap PO QID loperamide 2 mg PO BID PRN lorazepam 2 mg PO DAILY PRN metformin 1,000 mg PO BID metoprolol succinate ER 50 mg PO DAILY needle (disp) 18 G (BD Regular [place]vel [place]) As directed - draw up testosterone needle (disp) 22 G To inject Testosterone nitroglycerin 0.4 mg sublingual Q5M PRN oxybutynin chloride ER 5 mg PO DAILY 90 days peg 3350-electrolytes 236-22.74-6.74 -5.86 gram (Golytely) 240 mL PO Q10M 1 day promethazine 25 mg PO Q12H PRN risperidone 4 mg PO BEDTIME rosuvastatin 20 mg PO BEDTIME sertraline 100 mg PO DAILY sertraline 50 mg PO DAILY syringe (disposable) (Monoject TB Luer Judy) As directed - use 18 needle to draw up testosterone and 22 to inject tamsulosin 0.4 mg PO BEDTIME 90 days testosterone cypionate 140 mg (0.7 mL) IM Q2W 28 days Do you need a note to return to daycare/school/sports/work: No HPI HPI sleep disorder: Details: GRIS IS 53 YEARS OLD GENTLEMAN WITH MULTIPLE COMORBIDITIES, INCLUDING OBSTRUCTIVE SLEEP APNEA MAINLY RELATED TO CRANIOFACIAL DEFORMITY. HE HAS NOT OVERWEIGHT. HE USES CPAP VERY REGULARLY. MISSES USING CPAP A FEW NIGHTS EVERY MONTH, JUST TO TAKE A BREAK. HE HAS NO COMPLAINTS RELATED TO THE MASK OR CPAP DEVICE. HE HAS NO DAYTIME SLEEPINESS LONG HE USES THE CPAP AT NIGHT. [facility] Medical History Nocturnal hypoxemia SARTHAK (obstructive sleep apnea) Hypogonadism in male On beta catherine at home Hypothyroid IBS (irritable bowel syndrome) BPH (benign prostatic hyperplasia) Anxiety Allergic rhinitis COLON (nonalcoholic steatohepatitis) Elevated AFP Decreased libido Type 2 diabetes mellitus with unspecified complications Other and unspecified hyperlipidemia Essential hypertension Atherosclerotic cardiovascular disease Hypogonadism in male Hypogonadism Surgical History History of esophagogastroduodenoscopy (EGD) Hx of colonoscopy History of cardiac cath History of cardiac cath Family History Father Cardiac disease Mother Cardiac disease Social History Are you a primary healthcare receptionist to a significant other at home: No Do you presently have visiting nurse or other home services: No Alcohol intake: former Patient Tobacco Use Status: Former Tobacco user Tobacco use type: Cigarette Review of Systems Const All systems reviewed & are unremarkable except as noted in HPI and below Reports snoring (moderate ) Eyes Reports no additional complaints ENT Reports no additional complaints Card Denies chest pain (Intermittent angina), Denies irregular heart rhythm and Denies leg edema Resp Denies cough, Reports snoring (moderate ) and Denies wheezing GI Reports heartburn (GERD symptoms) Reports no additional complaints Musc Reports no additional complaints Skin/Breast Reports system reviewed and no additional complaints, except as documented Neuro Reports no additional complaints Psych Reports depression and Reports mood swings Endo Reports no additional complaints Kenneth/Lymph Reports no additional complaints Aller/Immun Reports no additional complaints and Denies wheezing Physical Exam Vital Signs: Last Vital Signs Pulse 56 05/20/24 10:35 BP 102/68 05/20/24 10:35 Pulse Ox 97 05/20/24 10:35 Oxygen Delivery Method Room Air 05/20/24 10:35 BMI result Body Mass Index 26.9 Const General: healthy appearing, comfortable, no acute distress, alert and awake Orientation/consciousness: patient oriented x3 HEENT Other: FACIAL FEATURES ARE, QUITE DISTINCT. HE HAS RELATIVELY FLAT NO O'S AND FACE, WITH REGRESSION OF THE LOWER JAW , CAUSING RETROGANTHIA Head: Yes normal to inspection General nose exam: No nasal polyps present and No nasal discharge present Face and sinus: Yes sinuses nontender Mouth: oropharynx abnormals (NARROW, WITH MALLAMPATI CLASS 3) Teeth and gingiva: other (RETROGANTHIA OF THE LOWER JAW) Throat: Yes posterior oropharynx normal Eyes General: appearance normal, both eyes and all related structures Neck Neck: Yes normal visual inspection, Yes no lymphadenopathy, Yes trachea midline and Yes no JVD Thyroid: Thyroid normal Chest Chest palpation & inspection: normal inspection of the chest, normal palpation of entire chest wall and no tenderness Resp Effort & Inspection: normal respiratory effort Auscultation: clear to auscultation bilaterally, no crackles and no wheezes Cardio Palpation: normal PMI Rate: regular rate Rhythm: regular rhythm Heart sounds: no gallops and no murmurs Peripheral pulses: Peripheral pulses 2+ throughout GI Palpation (GI): Soft to palpation, nontender, No hepatosplenomegaly present and no masses Auscultation: normal bowel sounds Back/Spine/Pelvis Thoracic/Lumbar Spine: thoracic and lumbar spine normal to inspection Skin General skin exam: no rashes or lesions noted Neuro General: patient oriented x3 and no focal motor deficits Cranial nerves: Yes CN's II-XII intact bilaterally Extrem General: Yes normal to inspection, Yes no clubbing, cyanosis or edema and Yes no calf tenderness Psych Appearance: grossly normal and well kempt Speech and movement: Normal speech and movement present Results Reviewed Results Reviewed: COMPLIANCE REPORT IS REVIEWED. HE HAS USED 25/30 NIGHTS, 83%. AVERAGE USE IT PER NIGHT 5 HOURS 25 MINUTES. PRESSURE USED MOSTLY 10-11 CM. .NO SIGNIFICANT AIR LEAK RESIDUAL AHI 3.0 Assessment & Plan Assessment & Plan (1) SARTHAK (obstructive sleep apnea): Comment: THIS GENTLEMAN IS OF NORMAL WEIGHT. 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 IT IS A PERMANENT MALFORMATION AND , ANY ATTEMPT AT FURTHER WEIGHT LOSS WOULD NOT HELP IN REDUCING HIS SLEEP APNEA. He has used the CPAP regularly and is compliant, (83 % OF THE NIGHTS ) HE CLAIMS THAT SLEEP QUALITY HAS DEFINITELY IMPROVED, Code(s): G47.33 - Obstructive sleep apnea (adult) (pediatric) Category: Medical Plan: ADVISED TO CONTINUE USING CPAP EVERY NIGHT AND USE FOR AT LEAST 6 HOURS PER NIGHT (2) Nocturnal hypoxemia: Comment: HE HAS MILD NOCTURNAL HYPOXEMIA, PART OF SARTHAK. As he is using the CPAP regularly I think his hypoxemia SHOULD BE CORRECTED. Code(s): G47.34 - Idiopathic sleep related nonobstructive alveolar hypoventilation Category: Medical Plan: NO FURTHER ACTION NEEDED Coding Level of Care Code Est Pt Level 3 (26508) Diagnoses SARTHAK (obstructive sleep apnea) G47.33 Nocturnal hypoxemia G47.34
== END 2024-05-20 10:53 | disposition home or self-care (01) ==
LOC: HO.HPS 10:16
PROVIDERS: PCP Internal Medicine; Visit Provider Internal Medicine
DX: G47.33 Obstructive sleep apnea (adult) (pediatric) (principal); G47.34 Idiopathic sleep related nonobstructive alveolar hypoventilation
CPT/HCPCS: 99213

== ENCOUNTER → 2024-05-20 10:15 | Outpatient (BNVA) | payer MEDICAID, SELFPAY | PROVIDERS: PCP Internal Medicine; Visit Provider Internal Medicine | DX: G47.33 Obstructive sleep apnea (adult) (pediatric) (principal); G47.34 Idiopathic sleep related nonobstructive alveolar hypoventilation | CPT/HCPCS: 99212 ==

== ENCOUNTER 2024-05-25 08:09 | Outpatient (AMB) | payer MEDICAID, SELFPAY ==
--- NOTE | 2024-05-25 08:16 | A.OFFVIS_ITS ---
Intake Visit Reasons: 6M PSA/Testo(set) Intake Note: Patient is Present for Follow Up LABS Urology Medication: Tamsulosin, Oxybutynin, Testosterone Antibiotic Allergies: None Blood Thinners: Aspirin, Plavix 05/11/24- PSA: 1.00 TOTAL TESTOSTERONE: 1061 Supervisor [employer] Required: Yes Supervisor [employer] Language: Physical Chemistry Teacher Services: Supervisor [employer] Present Information Interpreted: clinical only Accompanied by: Self / Same As Patient Allergies No Known Allergies [No Known Allergies*] Allergy (Verified 05/25/24 08:24) HPI Comments Details: Owen is Kyrgyz-speaking male. He is a patient of Dr. Holman. He is seen for the following urologic conditions - hypogonadism - bladder outlet obstruction Kyrgyz translation provided by qualified medical records receptionist Current lab work - Injection for 0.7 ml every 2 weeks Had 3 cc syringe for injecting Will represcribed with 1 cc syringe so he can use 0.7 cc every 2 weeks He has had difficulty with injecting the correct amount and has to have his partner give the shots since he is scared of needles Given peak and trough with injections every 2 weeks and high hematocrit would recommend trying testopel Hypogonadism Longstanding Testosterone replacement started in [place] Continues with 1.0 cc 200 milligram/mL injection every 2 weeks - injection day Friday - laboratory day Friday - knows to do labs mid cycle Laboratories - 05/10 T 604, PSA 0.7, Hct 47.5, 11/09 T 1171 0.8 53, 05/11 T 1012 52, 11/10 T 388 H52, 05/11 T 890 P 0.8., 11/11 T 1200 Hct 53, 05/13 1061 295 51 Bladder outlet obstruction Initial weakness of stream and incomplete emptying Good response to tamsulosin with oxybutynin Controls nocturia PFSH Medical History Nocturnal hypoxemia SARTHAK (obstructive sleep apnea) Hypogonadism in male On beta catherine at home Hypothyroid IBS (irritable bowel syndrome) BPH (benign prostatic hyperplasia) Anxiety Allergic rhinitis COLON (nonalcoholic steatohepatitis) Elevated AFP Decreased libido Type 2 diabetes mellitus with unspecified complications Other and unspecified hyperlipidemia Essential hypertension Atherosclerotic cardiovascular disease Hypogonadism in male Hypogonadism Surgical History History of esophagogastroduodenoscopy (EGD) Hx of colonoscopy History of cardiac cath History of cardiac cath Family History Father Cardiac disease Mother Cardiac disease Social History Are you a primary tire care manager to a significant other at home: No Do you presently have visiting nurse or other home services: No Alcohol intake: former Patient Tobacco Use Status: Former Tobacco user Tobacco use type: Cigarette Review of Systems Const Denies chills and Denies fever(s) Card Reports no additional complaints and Denies syncope Resp Denies cough GI Denies abdominal pain and Denies heartburn Reports as per HPI and Denies change in libido Neuro Denies syncope Psych Denies change in libido Endo Denies change in libido Physical Exam Const General: cooperative, healthy appearing, comfortable and no acute distress Orientation/consciousness: patient oriented x3 HEENT Face and sinus: Yes normal facial exam Mouth: moist mucous membranes Neck Neck: Yes normal visual inspection, Yes full ROM and Yes trachea midline Chest Chest palpation & inspection: normal inspection of the chest Resp Effort & Inspection: normal respiratory effort, able to speak in complete sentences and no respiratory distress GI Inspection: Yes normal to inspection Back/Spine/Pelvis Cervical Spine: normal cervical lordosis Thoracic/Lumbar Spine: thoracic and lumbar spine normal to inspection Skin General skin exam: no rashes or lesions noted Neuro General: patient oriented x3, gait normal, tone normal and moves all extremities Extrem General: Yes normal to inspection and Yes capillary refill normal Assessment & Plan Assessment & Plan (1) Decreased libido: Code(s): R68.82 - Decreased libido Category: Medical (2) Bladder outlet obstruction: Code(s): N32.0 - Bladder-neck obstruction Category: Medical Plan Needle phobic Investigate testopel Otherwise six-month Orders: Orders Testosterone, Total 6 Months E29.1 - Testicular hypofunction Complete Blood Count no Diff 6 Months E29.1 - Testicular hypofunction Prostate Specific Antigen 6 Months E29.1 - Testicular hypofunction Patient Instructions: Imaging studies, laboratory and physical exam results were discussed and reviewed in detail. No major barriers to patient understanding were identified. An opportunity to ask questions regarding the treatment plan was provided. All questions were answered. The patient expressed understanding and agreement with the above treatment plan. The patient is aware they should contact our office by phone for worsening of their current condition or the appearance of new urologic symptoms. Compliance is encouraged with any medications and followup testing that is ordered. It is a privilege to participate in the urologic care of your patient. If you have any questions or concerns regarding treatment for the above conditions, or other urologic issues, please do not hesitate to contact me. The office telephone contact is [phone]. This note is constructed using voice recognition software. While every effort has been made to ensure accuracy sports intern errors may have been included. Yours sincerely, Dr Eliezer Rivas MD, [facility] - Urology Providers of Expert, Compassionate Care for the Genitourinary System Coding Level of Care Code Est Pt Level 3 (65457) Diagnoses Decreased libido R68.82 Bladder outlet obstruction N32.0
== END 2024-05-25 08:41 | disposition home or self-care (01) ==
LOC: HO.HUSH 08:10
PROVIDERS: PCP Internal Medicine; Visit Provider Urology
DX: R68.82 Decreased libido (principal); N32.0 Bladder-neck obstruction
CPT/HCPCS: 99213

== ENCOUNTER → 2024-05-25 08:09 | Outpatient (BNVA) | payer MEDICAID, SELFPAY | PROVIDERS: PCP Internal Medicine; Visit Provider Urology | DX: E29.1 Testicular hypofunction (principal); N32.0 Bladder-neck obstruction; R68.82 Decreased libido | CPT/HCPCS: 99212 ==

== ENCOUNTER 2024-06-02 08:54 | Outpatient (REF) | payer MEDICAID, SELFPAY ==
[2024-06-02 11:51] LABS: Alanine Aminotransferase 32 U/L (0-40); Albumin Level 4.1 g/dL (3.5-5.0); Anion Gap 11 (12-20); Aspartate Amino Transferase 28 U/L (5-37); Bilirubin Total 0.7 mg/dL (0.0-1.0); Blood Urea Nitrogen 10 mg/dL (9-16); Carbon Dioxide 31 mmol/L (22-29); Chloride 99 mmol/L (96-108); Cholesterol 207 mg/dL (<200); Estimated Glomerular Filt Rate > 60; Glucose Random 166 mg/dL (60-115); HDL Cholesterol 43 mg/dL (>40); LDL Cholesterol Calculated 122 mg/dL (<100); Potassium 4.4 mmol/L (3.3-5.1); Sodium 137 mmol/L (135-145); TSH reflex Free T4 2.21 uIU/mL (0.32-4.0); Total Protein 6.9 g/dL (6.5-8.0); Triglycerides 210 mg/dL (<150)
[2024-06-02 11:54] LABS: Creatinine Urine 107.27 mg/dL; Microalbumin Urine < 5.0 mg/L
[2024-06-02 11:56] LABS: Alkaline Phosphatase 82 U/L (39-117)
== END 2024-06-02 08:55 | disposition home or self-care (01) ==
LOC: HO.HHCL 08:54
PROVIDERS: Visit Provider Internal Medicine
DX: E11.65 Type 2 diabetes mellitus with hyperglycemia (principal)
CPT/HCPCS: 36415; 80053; 80061; 82043; 82570; 84443

== ENCOUNTER 2024-08-25 06:58 | Outpatient (REF) | payer MEDICAID, SELFPAY ==
[2024-08-25 08:12] LABS: Cholesterol 142 mg/dL (<200); HDL Cholesterol 38 mg/dL (>40); LDL Cholesterol Calculated 68 mg/dL (<100); Triglycerides 181 mg/dL (<150)
== END 2024-08-25 06:59 | disposition home or self-care (01) ==
LOC: HO.LAB 06:58
PROVIDERS: PCP Internal Medicine; Visit Provider Internal Medicine
DX: E78.5 Hyperlipidemia, unspecified (principal)
CPT/HCPCS: 36415; 80061

== ENCOUNTER 2024-08-30 08:44 | Day surgery (SDC) | payer MEDICAID, SELFPAY ==
[2024-08-26 13:37] VITALS: BMI 26.6
--- NOTE | 2024-08-27 12:01 | P.CONAN_ITS ---
Documented by User: Morelia Xiao NP 08/27/24 12:08 HPI - Anesthesia Eval Consult details Narrative: 53yo M for Colonoscopy Follows [facility] [place] [facility] for CAD s/p stents. Stable at 01/2024 routine office visit. OK'd to hold plavix preop T/C from outside provider. Pt had spinal stim trial 08/24/24 with leads in situ. Pt off plavix since prior to stim procedure. 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 (Acute) Right hip pain (Acute) Lumbar spondylosis (Acute) Thoracic back pain (Acute) Low back pain potentially associated with radiculopathy (Acute) Abnormal EKG (Acute) Stented coronary artery (Acute) Joint pain (Acute) Left sided abdominal pain (Acute) Bladder outlet obstruction (Acute) Esophageal dysmotility (Acute) Tubular adenoma of colon (Acute) Hemorrhoids (Acute) Irritable bowel syndrome with diarrhea (Acute) COLON (nonalcoholic steatohepatitis) (Acute) GERD (gastroesophageal reflux disease) (Acute) Urge incontinence (Acute) Nocturnal hypoxemia (Acute) SARTHAK (obstructive sleep apnea) (Acute) Elevated AFP (Acute) Decreased libido (Acute) Type 2 diabetes mellitus with unspecified complications (Acute) Other and unspecified hyperlipidemia (Acute) Essential hypertension (Acute) Atherosclerotic cardiovascular disease (Acute) Hypogonadism in male (Acute) Past Medical History Medical History Nocturnal hypoxemia SARTHAK (obstructive sleep apnea) Hypogonadism in male On beta catherine at home Hypothyroid IBS (irritable bowel syndrome) BPH (benign prostatic hyperplasia) Anxiety Allergic rhinitis COLON (nonalcoholic steatohepatitis) Elevated AFP Decreased libido Type 2 diabetes mellitus with unspecified complications Other and unspecified hyperlipidemia Essential hypertension Atherosclerotic cardiovascular disease Hypogonadism in male Hypogonadism Family History Family History Father Cardiac disease Mother Cardiac disease Surgical History Surgical History History of esophagogastroduodenoscopy (EGD) Hx of colonoscopy History of cardiac cath History of cardiac cath Social History Social History Are you a primary care support representative to a significant other at home: No Do you presently have visiting nurse or other home services: No Alcohol intake: former Patient Tobacco Use Status: Former Tobacco user Tobacco use type: Cigarette Advance Directives: No Advance Directives Information Provided: Yes Meds Allergies Allergy/AdvReac Type Severity Reaction Status Date / Time No Known Allergies Allergy Verified 05/25/24 08:24 [No Known Allergies*] Home Medications ?Medication ?Instructions ?Recorded ?Confirmed ?Last Taken ?Type aspirin 81 mg tablet,delayed 81 mg PO DAILY 07/19/20 08/26/24 05/21/21 History release (Adult Low Dose Aspirin) cholecalciferol (vitamin D3) 25 25 mcg PO DAILY 07/19/20 08/26/24 Unknown History mcg (1,000 unit) capsule clopidogrel 75 mg tablet 75 mg PO DAILY 07/19/20 08/26/24 05/16/21 History glipizide 2.5 mg tablet, extended 2.5 mg PO DAILY 07/19/20 08/26/24 Unknown History release 24 hr metformin 1,000 mg tablet 1,000 mg PO BID 07/19/20 08/26/24 Unknown History metoprolol succinate 50 mg 50 mg PO DAILY 07/19/20 08/26/24 05/22/21 History tablet,extended release 24 hr risperidone 4 mg tablet 4 mg PO BEDTIME 07/19/20 08/26/24 Unknown History sertraline 100 mg tablet 100 mg PO DAILY 07/19/20 08/26/24 05/22/21 History lorazepam 2 mg tablet 2 mg PO DAILY PRN Anxiety 05/11/21 08/26/24 Unknown History hydroxyzine HCl 50 mg tablet 1 tab PO BEDTIME PRN anxiety 05/16/21 08/26/24 Unknown History blood sugar diagnostic (FreeStyle #10 ea 11/13/21 05/20/24 Unknown History Lite Strips) canagliflozin 100 mg tablet 100 mg PO DAILY 11/13/21 08/26/24 Unknown History (Invokana) gabapentin 400 mg capsule 400 mg PO TID 11/13/21 08/26/24 Unknown History lancets 33 gauge (TRUEplus Lancets) #100 ea 11/13/21 05/20/24 Unknown History levothyroxine 25 mcg tablet 25 mcg PO QAM 11/13/21 08/26/24 Unknown History blood-glucose meter (FreeStyle #1 ea 05/09/22 05/20/24 Unknown History [place] Lite kit) lidocaine 5 % topical patch 1 patch topical DAILY PRN Pain 12/13/22 08/26/24 Unk nown History (Lidoderm) cyclobenzaprine 5 mg tablet 5 mg PO TID 03/26/24 08/26/24 Unknown History sertraline 50 mg tablet 50 mg PO DAILY 03/26/24 08/26/24 Unknown History Exam Height,Weight and Vital Signs: Height 5 ft 6 in Weight 74.843 kg Pertinent Lab Results Pertinent Lab Results: Laboratory Tests 05/11/24 06/02/24 08:03 08:55 WBC 6.8 Hgb 17.6 Hct 51.1 Plt Count 242 Sodium 137 Potassium 4.4 Chloride 99 Carbon Dioxide 31 H BUN 10 Creatinine 0.92 Narrative Narrative: EKG 01/2024 Details: EKG with sinus rhythm at 69/Min; LVH with repolarization pattern. Normal MT and corrected QT. Per cardiac office visit 01/2024 Cardiac catheterization/stenting of distal left main into proximal LAD from 2016; proximal circumflex and ostial LAD stents 2016. Myocardial perfusion imaging study from 2021 shows normal perfusion. No evidence of any ischemia or infarction. Echocardiogram from 2021 with normal LVEF at 60%. No wall motion abnormalities. No significant valvular issues. Assessment and Plan Assessment Anesthesia Assessment: Chart Reviewed Documented by User: Sylvia Brown MD 08/30/24 11:56 PMFSH Past Medical History Medical History Nocturnal hypoxemia SARTHAK (obstructive sleep apnea) Hypogonadism in male On beta catherine at home Hypothyroid IBS (irritable bowel syndrome) BPH (benign prostatic hyperplasia) Anxiety Allergic rhinitis COLON (nonalcoholic steatohepatitis) Elevated AFP Decreased libido Type 2 diabetes mellitus with unspecified complications Other and unspecified hyperlipidemia Essential hypertension Atherosclerotic cardiovascular disease Hypogonadism in male Hypogonadism Family History Family History Father Cardiac disease Mother Cardiac disease Family history of problems with anesthesia: No Surgical History Surgical History History of esophagogastroduodenoscopy (EGD) Hx of colonoscopy History of cardiac cath History of cardiac cath History of Problems with Anesthesia: No Social History Social History Are you a primary care support representative to a significant other at home: No Do you presently have visiting nurse or other home services: No Alcohol intake: former Patient Tobacco Use Status: Former Tobacco user Tobacco use type: Cigarette Advance Directives: No Advance Directives Information Provided: Yes Meds Allergies Allergy/AdvReac Type Severity Reaction Status Date / Time No Known Allergies Allergy Verified 05/25/24 08:24 [No Known Allergies*] Home Medications ?Medication ?Instructions ?Recorded ?Confirmed ?Last Taken ?Type aspirin 81 mg tablet,delayed 81 mg PO DAILY 07/19/20 08/26/24 05/21/21 History release (Adult Low Dose Aspirin) cholecalciferol (vitamin D3) 25 25 mcg PO DAILY 07/19/20 08/26/24 Unknown Histo ry mcg (1,000 unit) capsule clopidogrel 75 mg tablet 75 mg PO DAILY 07/19/20 08/26/24 05/16/21 History glipizide 2.5 mg tablet, extended 2.5 mg PO DAILY 07/19/20 08/26/24 Unknown History release 24 hr metformin 1,000 mg tablet 1,000 mg PO BID 07/19/20 08/26/24 Unknown History metoprolol succinate 50 mg 50 mg PO DAILY 07/19/20 08/26/24 05/22/21 History tablet,extended release 24 hr risperidone 4 mg tablet 4 mg PO BEDTIME 07/19/20 08/26/24 Unknown History sertraline 100 mg tablet 100 mg PO DAILY 07/19/20 08/26/24 05/22/21 History lorazepam 2 mg tablet 2 mg PO DAILY PRN Anxiety 05/11/21 08/26/24 Unknown History hydroxyzine HCl 50 mg tablet 1 tab PO BEDTIME PRN anxiety 05/16/21 08/26/24 Unknown History blood sugar diagnostic (FreeStyle #10 ea 11/13/21 05/20/24 Unknown History Lite Strips) canagliflozin 100 mg tablet 100 mg PO DAILY 11/13/21 08/26/24 Unknown History (Invokana) gabapentin 400 mg capsule 400 mg PO TID 11/13/21 08/26/24 Unknown History lancets 33 gauge (TRUEplus Lancets) #100 ea 11/13/21 05/20/24 Unknown History levothyroxine 25 mcg tablet 25 mcg PO QAM 11/13/21 08/26/24 Unknown History blood-glucose meter (FreeStyle #1 ea 05/09/22 05/20/24 Unknown History [place] Lite kit) lidocaine 5 % topical patch 1 patch topical DAILY PRN Pain 12/13/22 08/26/24 Unknown History (Lidoderm) cyclobenzaprine 5 mg tablet 5 mg PO TID 03/26/24 08/26/24 Unknown History sertraline 50 mg tablet 50 mg PO DAILY 03/26/24 08/26/24 Unknown History Exam Airway Mallampati Class: III TM Dist: >3cm Neck ROM: Full Assessment and Plan Assessment Anesthesia Assessment: Anesthesia Plan Discussed Final Anesthetic Review Family History of Problems with Anesthesia: No History of Problems with Anesthesia: No NPO: Yes ASA Class: III Final Preanesthetic Review: No Changes in Pt Med Stat, Meds/Allgs Chart Reviewed, Consent Obtained/Reviewed, Anes Risks/Benef Reviewed and DNR Form (If Appl.) Patient Risk: Intermediate Procedure Risk: Low Anesthetic Plan Anesthetic Plan: TIVA Disposition: Standard PACU
--- OUTSIDE RECORDS SUMMARY | 2024-08-30 09:06 | XMS_ITS | Encounter Summary ---
Author Organization [employer] Address [address] [place] [address] Care Team Providers Care Assurance Assistant Name Role Phone Audrey Smith MD Primary Care Provide r Encounter Details Date Type Department Care Team (Latest Contact Info) Description 08/24/2024 6:05 AM EST - 08/24/2024 11:59 PM EST Hospital Encounter [facility] Xray [address] [place] [address] Pain Discharge Disposition: Home or Self Care Social History Tobacco Use Types Packs/Day Years Used Date Smoking Tobacco: Never Assessed Alcohol Use Standard Drinks/Week Comments Not Currently 0 (1 standard drink = 0.6 oz pur e alcohol) Interpersonal Safety Answer Date Record ed Physical Abuse 08/24/2024 Verbal Abuse 08/24/2024 Sex and Gender Information Value Date Recorded Sex Assigned at Male 08/24/2024 7:05 AM EST Legal Sex Male 8:28 PM EST Gender Identity Male 08/24/2024 7:05 AM EST Sexual Orientation Straight 08/24/2024 7: 05 AM EST documented as of this encounter Medications at Time of Discharge aspirin 81 mg EC tablet Take 1 tablet (81 mg total) by mouth 1 (one) time each day. canagliflozin (Invokana) 100 mg tablet Take 1 tablet (100 mg total) by mouth 1 (one) time each day. cholecalciferol (VITAMIN D-3) 25 mcg (1,000 unit) tablet Take 1 tablet (1,000 Units total) by mouth 1 (one) time each day. clopidogreL (PLAVIX) 75 mg tablet Take 1 tablet (75 mg total) by mouth 1 (one) time each day. cyclobenzaprine (FLEXERIL) 5 mg tablet Take by mouth 3 (three) times a day. diclofenac (VOLTAREN) 1 % topical gel Apply 4 g topically 2 times daily. 08/18/2023 dicyclomine (BENTYL) 20 mg tablet Take 1 tablet (20 mg total) by mouth 4 (four) times a day if needed. famotidine (PEPCID) 40 mg tablet Take by mouth 2 (two) times a day. fexofenadine (AUSTIN) 180 mg tablet Take 1 tablet (180 mg total) by mouth 1 (one) time each day. gabapentin (NEURONTIN) 400 mg capsule Take 1 capsule (400 mg total) by mouth 3 (three) times a day. glipiZIDE (GLUCOTROL XL) 2.5 mg 24 hr tablet Take 1 tablet (2.5 mg total) by mouth 1 (one) time each day. Do not crush, chew, or split. glucose 4 gram chewable tablet Chew 4 tablets (16 g total) if needed for low blood sugar. hydrOXYzine HCL (ATARAX) 50 mg tablet Take 1 tablet (50 mg total) by mouth at bedtime as needed (SLEEP/ANXIETY) . imipramine (TOFRANIL) 10 mg tablet Take 1 tablet (10 mg total) by mouth at bedtime. levothyroxine (SYNTHROID, LEVOTHROID) 25 mcg tablet Take by mouth 1 (one) time each day before breakfast. loperamide (IMODIUM) 2 mg capsule Take 1 capsule (2 mg total) by mouth 4 (four) times a day if needed for diarrhea. LORazepam (ATIVAN) 2 mg tablet Take 1 tablet (2 mg total) by mouth at bedtime. Max Daily Amount: 2 mg metFORMIN (FORTAMET) 1,000 mg 24 hr tablet Take 1 tablet (1,000 mg total) by mouth 2 (two) times a day. Do not crush, chew, or split. metoprolol succinate (TOPROL-XL) 50 mg 24 hr tablet Take 1 tablet (50 mg total) by mouth 1 (one) time each day. Do not crush or chew. nitroglycerin (NITROSTAT) 0.[address] 1 tablet (0.4 mg total) under the tongue every 5 (five) minutes if needed for chest pain. oxyBUTYnin XL (DITROPAN-XL) 5 mg 24 hr tablet Take by mouth. Do not crush, chew, or split. promethazine (PHENERGAN) 25 mg tablet Take 1 tablet (25 mg total) by mouth every 12 (twelve) hours if needed for nausea or vomiting. psyllium (METAMUCIL) 0.52 gram capsule Take 1 capsule (520 mg total) by mouth 2 (two) times a day. risperiDONE (RisperDAL) 4 mg tablet Take 1 tablet (4 mg total) by mouth 2 (two) times a day. rosuvastatin (CRESTOR) 20 mg tablet Take 1 tablet (20 mg total) by mouth at bedtime. sertraline (ZOLOFT) 100 mg tablet Take 2 tablets (200 mg total) by mouth 1 (one) time each day. tamsulosin (FLOMAX) 0.4 mg 24 hr capsule Take 1 capsule (0.4 mg total) by mouth at bedtime. Capsules should be taken 30 minutes following the same meal each day. testosterone cypionate (DEPO-TESTOTERON E) 200 mg/mL injection Inject 0.7 mL (140 mg total) into the shoulder, thigh, or buttocks every 14 (fourteen) days. Max Daily Amount: 140 mg diclofenac (Voltaren Arthritis Pain) 1 % topical gel Apply 4 g topically 2 (two) times a day. 240 g 1 06/30/2024 documented as of this encounter Discharge Disposition Disposition Code Departure Means Destination Home or Self Care documented in this encounter Plan of Treatment Upcoming Encounters Date Type Department Care Team (Late st Contact Info) Description 11/01/2024 9:15 AM EDT Office Visit Orthopedic Surgery - [place] [address] [address] Aaron Graves, MITCHELLM [address] [address] documented as of this encounter Procedures Procedure Name Priority Date/Time Associated Diagnosis Comments XR FLUORO UP TO 1 HOUR Routine 08/24/2024 10:54 AM EST Pain documented in this encounter Results * XR Fluoro Up To 1 Hour (08/24/2024 10:54 AM EST) Anatomical Region Laterality Modality Body Radio Fluoroscop y 08/24/2024 1:23 PM EST Impressions 08/24/2024 1:23 PM EST Impression: Fluoroscopy provided by the Department of Radiology during a pain management procedure. NC -------- FINAL REPORT -------- Dictated By: Virginia Paz Dictated Date: 08/24/2024 13:23 ET Assigned Physician: Virginia Paz Reviewed and Electronically Signed By: Virginia Paz Signed Date: 08/24/2024 13:23 ET Workstation ID: [id number] Transcribed By: Self Edit Transcribed Date: 08/24/2024 13:23 ET Narrative 08/24/2024 1:23 PM EST Findings: Fluoroscopy was provided for Dr. Parsons during a pain management procedure. No radiologist was in attendance. Cumulative Dose: 20.61 mGy Procedure Note Virginia Paz MD - 08/24/2024 Findings: Fluoroscopy was provided for Dr. Parsons during a pain management procedure.No radiologist was in attendance. Cumulative Dose: 20.61 mGy IMPRESSION: Impression: Fluoroscopy provided by the Department of Radiology during a painmanagement procedure. NC -------- FINAL REPORT -------- Dictated By: Virginia Paz Dictated Date: 08/24/2024 13:23 ET Assigned Physician: Virginia Paz Reviewed and Electronically Signed By: Virginia Paz Signed Date: 08/24/2024 13:23 ET Workstation ID: [id number] Transcribed By: Self Edit Transcribed Date: 08/24/2024 13:23 ET us Rock Parsons MD IMG FLUOROSCOPY PROCEDURES Fin al Result documented in this encounter Visit Diagnoses Diagnosis Pain Generalized pain documented in this encounter Care Teams Assurance Assistant Relationship Specialty Start Date End Date Audrey Smith MD [address] [address] PCP - General 07/01/23 documented as of this encounter
--- OUTSIDE RECORDS SUMMARY | 2024-08-30 09:07 | XMS_ITS | Clinical Summary ---
Author Organization [facility] Address [address] [place] [address] Phone Care Team Providers Care Speech And Language Tutor Name Role Phone Audrey Smith MD Primary Care Provide r Allergies No known active allergies Medications diclofenac (VOLTAREN) 1 % topical gel Apply 4 g topically 2 times daily. 4 Active clopidogreL (PLAVIX) 75 mg tablet Take 1 tablet (75 mg total) by mouth 1 (one) time each day. Active aspirin 81 mg EC tablet Take 1 tablet (81 mg total) by mouth 1 (one) time each day. Active cyclobenzaprin e (FLEXERIL) 5 mg tablet Take by mouth 3 (three) times a day. Active dicyclomine (BENTYL) 20 mg tablet Take 1 tablet (20 mg total) by mouth 4 (four) times a day if needed. Active famotidine (PEPCID) 40 mg tablet Take by mouth 2 (two) times a day. Active fexofenadine (AUSTIN) 180 mg tablet Take 1 tablet (180 mg total) by mouth 1 (one) time each day. Active gabapentin (NEURONTIN) 400 mg capsule Take 1 capsule (400 mg total) by mouth 3 (three) times a day. Active glipiZIDE (GLUCOTROL XL) 2.5 mg 24 hr tablet Take 1 tablet (2.5 mg total) by mouth 1 (one) time each day. Do not crush, chew, or split. Active hydrOXYzine HCL (ATARAX) 50 mg tablet Take 1 tablet (50 mg total) by mouth at bedtime as needed (SLEEP/ANXIET Y). Active imipramine (TOFRANIL) 10 mg tablet Take 1 tablet (10 mg total) by mouth at bedtime. Active canagliflozin (Invokana) 100 mg tablet Take 1 tablet (100 mg total) by mouth 1 (one) time each day. Active levothyroxine (SYNTHROID, LEVOTHROID) 25 mcg tablet Take by mouth 1 (one) time each day before breakfast. Active loperamide (IMODIUM) 2 mg capsule Take 1 capsule (2 mg total) by mouth 4 (four) times a day if needed for diarrhea. Active LORazepam (ATIVAN) 2 mg tablet Take 1 tablet (2 mg total) by mouth at bedtime. Max Daily Amount: 2 mg Active metFORMIN (FORTAMET) 1,000 mg 24 hr tablet Take 1 tablet (1,000 mg total) by mouth 2 (two) times a day. Do not crush, chew, or split. Active metoprolol succinate (TOPROL-XL) 50 mg 24 hr tablet Take 1 tablet (50 mg total) by mouth 1 (one) time each day. Do not crush or chew. Active nitroglycerin (NITROSTAT) 0.[address] 1 tablet (0.4 mg total) under the tongue every 5 (five) minutes if needed for chest pain. Active oxyBUTYnin XL (DITROPAN-XL) 5 mg 24 hr tablet Take by mouth. Do not crush, chew, or split. Active promethazine (PHENERGAN) 25 mg tablet Take 1 tablet (25 mg total) by mouth every 12 (twelve) hours if needed for nausea or vomiting. Active psyllium (METAMUCIL) 0.52 gram capsule Take 1 capsule (520 mg total) by mouth 2 (two) times a day. Active risperiDONE (RisperDAL) 4 mg tablet Take 1 tablet (4 mg total) by mouth 2 (two) times a day. Active rosuvastatin (CRESTOR) 20 mg tablet Take 1 tablet (20 mg total) by mouth at bedtime. Active sertraline (ZOLOFT) 100 mg tablet Take 2 tablets (200 mg total) by mouth 1 (one) time each day. Active tamsulosin (FLOMAX) 0.4 mg 24 hr capsule Take 1 capsule (0.4 mg total) by mouth at bedtime. Capsules should be taken 30 minutes following the same meal each day. Active testosterone cypionate (DEPO-TESTOTER ONE) 200 mg/mL injection Inject 0.7 mL (140 mg total) into the shoulder, thigh, or buttocks every 14 (fourteen) days. Max Daily Amount: 140 mg Active glucose 4 gram chewable tablet Chew 4 tablets (16 g total) if needed for low blood sugar. Active cholecalcifero l (VITAMIN D-3) 25 mcg (1,000 unit) tablet Take 1 tablet (1,000 Units total) by mouth 1 (one) time each day. Active diclofenac (Voltaren Arthritis Pain) 1 % topical gel Apply 4 g topically 2 (two) times a day. 240 g 1 4 08/29/19 25 lidocaine (LIDODERM) 5 % patch Apply 1 patch topically 1 (one) time each day. Remove & discard patch within 12 hours or as directed by . 30 each 2 4 08/24/19 25 Discontinue d(Stop Taking at Discharge) Encounters Date Type Department Care Team Description 08/24/2024 9:47 AM EST Anesthesia Event [facility] Pain Management [address] [place] [address] Jonatan Alvarado DO 08/24/2024 7:08 AM EST - 08/24/2024 11:59 PM EST Hospital Encounter [facility] Pain Management [address] [place] [phone] Rock Parsons MD Walsh, Michael, DO Weiss, Ashley, CRNA Type 2 diabetes mellitus with diabetic polyneuropathy, unspecified whether meterman insulin use ([facility]) [E11.42] (Primary Dx); Type 2 diabetes mellitus with diabetic polyneuropathy ([facility]); Peripheral polyneuropathy [G62.9] Discharge Disposition: Home or Self Care 08/24/2024 6:05 AM EST - 08/24/2024 11:59 PM EST Hospital Encounter [facility] Xray [address] [place] [phone] Pain Discharge Disposition: Home or Self Care 06/30/2024 9:15 AM EST Office Visit Orthopedic Surgery [facility] 250 175 [facility] [address] [place] [phone] Graves, Christopher M, DPM Diabetic mononeuropathy simplex (CMS/HCC) (Primary Dx); Primary osteoarthritis of both feet from Last 3 Months Immunizations Name Administration Dates Next Due COVID-19 (Moderna/Spikevax) 12yo and older 07/10 Pfizer (ages 12 & older) ADDY S-CoV-2 COVID-19, mRNA, LNP-S, jenny-sucrose, preservative free 10/31/2021 Surgical History Surgery Date Site/Laterality Comments CORONARY ANGIOPLASTY WITH STENT PLACEMENT ABSCESS DRAINAGE RIGHT ARM/RIGHT FOOT Medical History Medical History Date Comments Diabetes mellitus (CMS/HCC) DX:D iabetes mellitus ([facility]) Hypertension DX:Hypertension Disease of thyroid gland DX:Dise ase of thyroid gland Hypercholesteremia DX:Hyperchole steremia Sleep apnea DX:Sleep apnea GERD (gastroesophageal reflux disease) Psychiatric illness Depression Joint pain Social History Tobacco Use Types Packs/Day Years [...] Orientation Straight 08/24/2024 7: 05 AM EST Obstetrics History Last Filed Vital Signs Vital Sign Reading Time Taken Comments Blood Pressure 117/85 08/24/2024 12:05 PM EST Pulse 62 08/24/2024 12:05 PM EST Temperature 36.8 ??C (98.2 ??F) 08/24/2024 11:[address] Respiratory Rate 20 08/24/2024 12:05 PM EST Oxygen Saturation 98% 08/24/2024 12:05 PM EST Inhaled Oxygen Concentration - - Weight 73.5 kg (162 lb) 08/24/2024 7:24 AM EST Height 167.6 cm (5' 6 ) 08/24/2024 7:24 AM EST Body Mass Index 26.15 08/24/2024 7:24 AM EST Plan of Treatment Upcoming Encounters Date Type Department Care Team (Late st Contact Info) Description 11/01/2024 9:15 AM EDT Office Visit Orthopedic Surgery [facility] [address] [phone] Aaron Graves, DPM [address] [address] Health Maintenance Due Date Last Done Comments Diabetes: Annual Foot Exam 11/07/1979 Diabetes: Annual Retina Eye Exam 11/07/1979 DTaP,Tdap,and Td Vaccines (2 - Td or Tdap) 04/13/2018 03/16/2018 Colorectal Cancer Screening: Colonoscopy 08/15/2023 HIV Screening 08/15/2023 Hepatitis C Screening 08/15/2023 Social Influencers of Health Screening 08/15/2023 Diabetes: Annual Urine Albumin-Creatinine Ratio (uACR) 04/29/2024 Diabetes: Blood Sugar Control Test (HGBA1C) 11/18/2024 05/21/2024 Depression Screening 05/21/2025 05/21/2024 Diabetes: Annual GFR (Glomerular Filtration Rate) 06/02/2025 06/02/2024 Hypertension/CHF/CAD Annual BMP Blood Test 06/02/2025 06/02/2024 Cholesterol Screening (Lipid Panel) 06/02/2029 06/02/2024 Hepatitis B Vaccines Completed 12/07/2020, 01/25/2019, 12/25/2018 Zoster Vaccines Completed 08/09/2021, 05/30/2021 Pneumococcal Vaccine: 50+ Years Completed 10/22/2023 Pneumococcal Vaccine: Pediatrics (0 to 5 Years) and At-Risk Patients (6 to 64 Years) Completed 10/22/2023 COVID-19 Vaccine Completed 05/21/2024, 06/2024, 07/10/2022, Additional history exists Influenza Vaccine Completed 05/21/2024, , 04/18/2022, Additional history exists HIB Vaccines Aged Out No longer eligi ble based on patient's age to complete this topic HPV Vaccines Aged Out No longer eligi ble based on patient's age to complete this topic Hepatitis A Vaccines Aged Out No long er eligible based on patient's age to complete this topic IPV Vaccines Aged Out No longer eligi ble based on patient's age to complete this topic MMR Vaccines Aged Out No longer eligi ble based on patient's age to complete this topic Meningococcal ACWY Vaccine Aged Out N o longer eligible based on patient's age to complete this topic Meningococcal B Vacine Aged Out No lo nger eligible based on patient's age to complete this topic RSV Immunization Patients Under 20 months Aged Out No longer eligible based on patient's age to complete this topic Varicella Vaccines Aged Out No longer eligible based on patient's age to complete this topic Medical Devices Implanted Type Area Farm Tractor Mechanic Device Identifier Shelf Expiration Date Model / Serial / Lot Lead Linear Trial St - [id number] - [id number] Implanted:Qty: 1 on 08/24/2024 by Rock Parsons MD at [facility] Neurostim Right: Back [employer] 03/23/2026 [id number] / [id number] / [id number] Lead Linear Trial St - [id number] - [id number] Implanted:Qty: 1 on 08/24/2024 by Rock Parsons MD at [facility] Neurostim Left: Back [employer] 03/15/2026 [id number] / [id number] / [id number] Procedures Procedure Name Priority Date/Time Associated Diagnosis Comments XR FLUORO UP TO 1 HOUR Routine 08/24/2024 10:54 AM EST Pain POCT GLUCOSE BLOOD Routine 08/24/2024 7: 25 AM EST from Last 3 Months Results * XR Fluoro Up To 1 [...] Signed Date: 08/24/2024 13:23 ET Workstation ID: [id number] Transcribed By: Self Edit Transcribed Date: 08/24/2024 [...] Signed Date: 08/24/2024 13:23 ET Workstation ID: [id number] Transcribed By: Self Edit Transcribed Date: 08/24/2024 13:23 ET Rock Parsons MD IMG FLUOROSCOPY PROCEDURES Fin al Result * (ABNORMAL) POCT Glucose, blood (08/24/2024 7:25 AM EST) Glucose POCT 145(H) 70 - 100 mg/dL 08/24/2024 7:26 AM EST [facility] Blood Capillary blood specimen / Unknown 08/24/2024 7:25 AM EST 08/24/2024 7:27 AM EST us [facility] POINT OF CARE TE ST DOCKED DEVICE UNSOLICITED RESULTS Final Result [facility] [address] [place] [address], [place] [phone] from Last 3 Months Insurance [place]ICAID - [place] , [address] [place] [address] Care Teams Speech And Language Tutor Relationship Specialty Start Date End Date Audrey Smith MD [address] [place], [place] [address] [place] [address] PCP - General 07/01/23
--- OUTSIDE RECORDS SUMMARY | 2024-08-30 09:07 | XMS_ITS | Encounter Summary ---
Author Organization [employer] Address [address] [place] [address] [address] [place] [address] Care Team Providers Care Fitness Studies Teacher Name Role Phone Audrey Smith MD Primary Care Provide r Reason for Visit * Reason Comments Med Refill Encounter Details Date Type Department Care Team (Late Contact Info) Description 03/09/2023 Refill [facility] [address] [place], [place] [phone] Alice Huber MD [address] [place] [phone] Type 2 diabetes mellitus without complication, unspecified whether prison insulin use (CMS/HCC) Social History Tobacco Use Types Packs/Day Years Used Date Smoking Tobacco: Never Smokeless Tobacco: Never Sex and Gender Information Value Date Recorded Sex Assigned at Male 05/20/2022 10:33 AM EDT Legal Sex Male 10:33 AM EDT Gender Identity Male 05/20/2022 10:33 AM EDT Sexual Orientation Straight 05/20/2022 10 :33 AM EDT documented as of this encounter Plan of Treatment Upcoming Encounters Date Type Department Care Team (Late Contact Info) Description 09/17/2024 10:00 AM EST Office Visit [facility] [address] [place] [phone] Audrey Smith MD [address] [place], [place] [phone] documented as of this encounter Visit Diagnoses Diagnosis Type 2 diabetes mellitus without complication, unspecified whether continuous churn buttermaker insulin use (CMS/HCC) documented in this encounter Care Teams Fitness Studies Teacher Relationship Specialty Start Date End Date Audrey Smith MD [address] [place] [address] PCP - General Family Medicine 11/20/17 documented as of this encounter
--- OUTSIDE RECORDS SUMMARY | 2024-08-30 09:07 | XMS_ITS | Encounter Summary ---
Author Organization [employer] Address [address] [place] [address] [address] [place] [address] Care Team Providers Care Briquette Machine Operator Helper Name Role Phone Audrey Smith MD Primary Care Provide r Encounter Details Date Type Department Care Team (Late st Contact Info) Description 03/27/2023 Orders Only [facility] [address] [place] [phone] ProviderNatasha MD Social History Tobacco Use Types Packs/Day Years [...] Description 09/17/2024 10:00 AM EST Office Visit [facility] [address] [place] [phone] Audrey Smith MD [address] [place] [phone] documented as of this encounter Procedures Procedure Name Priority Date/Time Associated Diagnosis Comments XR HIP RIGHT WITH PELVIS 1 VIEW Routine 03/30/2023 10:46 AM EDT HM COLONOSCOPY Routine 05/22/2021 documented in this encounter Results * XR Hip right with Pelvis 1 view (03/30/2023 10:46 AM EDT) Anatomical Region Laterality Modality Lower Extremities, Hip Bilateral Radiograp hic Imaging 03/30/2023 10:4 6 AM EDT Narrative 03/30/2023 11:21 AM EDT ? [facility] ?[address] ?[place] [address] ?XRay Report ? Signed ? Patient: Owen Montano ?MR#: ?? [id number] ? : 1970 ?Acct:[id number] ? Age/Sex: 52 / M ?ADM Date: 03/30/23 ? Loc: HO.ED ? Attending Dr: ? Ordering Physician: Ada Mcintosh NP ?? Date of Service: 03/30/23 ?? Procedure(s): XR hip RT w PEL1V ?? Accession Number(s): [id number] ? cc: Audrey Smith MD; Ada Mcintosh NP ? EXAMINATION: ?? XR HIP, RIGHT ? CLINICAL INFORMATION: ?? Pain ? COMPARISON: ?? Hip radiographs 09/02/2022 ? TECHNIQUE: ?? Two views of the right hip. One view of the pelvis. ? FINDINGS: ?? No acute fracture or dislocation. Sacroiliac joint spaces are ?? maintained. Mild degenerative changes of the right hip with acetabular ?? osteophytes and subchondral cystic change similar to prior. Left hip ?? joint space is maintained. Soft tissues are unremarkable. ? XR/XR hip RT w PEL1V ?? IMPRESSION: ?? 1. ??Mild degenerative changes of the right hip similar to prior. ?? 2. ??Left hip joint space is maintained. ? Dictated By: ?Flori Olson MD ? Signed By: ?<Electronically signed by Flori Olson MD in OV> ?03/30/23 1117 ? DD/ 1046 ? TD/TT: ? Corrections Cadet: ? Procedure Note Leigh Breen - 03/30/[address] [address] XRay Report Signed Patient: Livier Montano#: [id number] : 1970Acct:[id number] Age/Sex: 52 / MADM Date: 03/30/23 Loc: HO.ED Attending Dr: Ordering Physician: Ada Mcintosh NP Date of Service: 03/30/23 Procedure(s): XR hip RT w PEL1V Accession Number(s): [id number] cc: Audrey Smith MD; Ada Mcintosh NP EXAMINATION: XR HIP, RIGHT CLINICAL INFORMATION: Pain COMPARISON: Hip radiographs 09/02/2022 TECHNIQUE: Two views of the right hip. One view of the pelvis. FINDINGS: No acute fracture or dislocation. Sacroiliac joint spaces are maintained. Mild degenerative changes of the right hip with acetabular osteophytes and subchondral cystic change similar to prior. Left hip joint space is maintained. Soft tissues are unremarkable. XR/XR hip RT w PEL1V IMPRESSION: 1. Mild degenerative changes of the right hip similar to prior. 2. Left hip joint space is maintained. Dictated By: Flori Olson MD Signed By: <Electronically signed by Flori Olson MD in OV> 03/30/23 1117 DD/ 1046 TD/TT: Corrections Cadet: [facility] External Provider IMG XR PROCEDURES Final Result * Hm Colonoscopy (05/22/2021) Historical Provider HEALTH MAINTENANCE Final Result documented in this encounter Visit Diagnoses Not on filedocumented in this encounter Care Teams Briquette Machine Operator Helper Relationship Specialty Start Date End Date Audrey Smith MD [address] [place] [phone] PCP - General Family Medicine 11/20/17 documented as of this encounter
--- OUTSIDE RECORDS SUMMARY | 2024-08-30 09:07 | XMS_ITS | Encounter Summary ---
Author Organization [facility] Address [address] [place] [address] Care Team Providers Care Warehouse Production Worker Name Role Phone Audrey Smith MD Primary Care Provide r Reason for Referral * Pain Management (Routine) - Closed Specialty Diagnoses / Procedures Referred By Contac t Referred To Contact Pain Medicine Diagnoses Type 2 diabetes mellitus with diabetic polyneuropathy (CMS/HCC) Procedures Insertion stimulator spinal cord trial Rock Parsons MD [address] [place] [address] Phone: tel: fax: Referral ID Status Reason Start Date Expiration Date Visits Re quested Visits Authorized [id number] Closed 08/12/2024 08/12/2025 1 1 Reason for Visit * Pain Management (Routine) - Closed Specialty Diagnoses / Procedures Referred By Contac t Referred To Contact Pain Medicine Diagnoses Type 2 diabetes mellitus with diabetic polyneuropathy (CMS/HCC) Procedures Insertion stimulator spinal cord trial Rock Parsons MD [address] [place] [address] Phone: tel: fax: Referral ID Status Reason Start Date Expiration Date Visits Re quested Visits Authorized [id number] Closed 08/12/2024 08/12/2025 1 1 Encounter Details Date Type Department Care Team (Latest Contact Info) Description 08/24/2024 7:08 AM EST - 08/24/2024 11:59 PM EST Hospital Encounter [facility] Pain Management [address] [place] [phone] Rock Parsons MD [address] [place] [phone] Jonatan Alvarado DO [address] [place], [place] [phone] Юлия Marmolejo CRNA [address] [place], [place] [phone] Type 2 diabetes mellitus with diabetic polyneuropathy, unspecified whether nursing home insulin use (CMS/HCC) [E11.42] (Primary Dx); Type 2 diabetes mellitus with diabetic polyneuropathy (CMS/[facility]); Peripheral polyneuropathy [G62.9] Discharge Disposition: Home or Self Care Social [...] AM EST documented as of this encounter Last Filed Vital Signs Vital Sign Reading [...] Mass Index 26.15 08/24/2024 7:24 AM EST documented in this encounter Discharge Instructions * Attachments The following attachments cannot be sent through Care Everywhere. * Sedation (Arabic) * Spinal Cord Stimulation: General Info (Arabic) * Spinal Cord Stimulation: General Info (Bulgarian) documented in this encounter Medications at Time of Discharge [...] or Self Care documented in this encounter Procedure Notes * Audra Kennedy RN - 08/24/2024 8:00 AM EST SUNG BURRIS-FRIEND [phone] * Marcelle Laurent RN - 08/24/2024 8:[address] Parsons and spinal cord stimulator rep at bedside reviewing dc instructions and spinal stimulator instructions. * Marcelle Laurent RN - 08/24/2024 8:00 AM EST Pt standing at bedside. Rep working w/pt on settings of spinal stimulator w/kazakh video park interpreter. * Marcelle Laurent RN - 08/24/2024 8:00 AM EST All questions answered pt and photo mask pattern generator verbalized understanding of all instructions. * Rock Parsons MD - 08/24/2024 8:00 AM EST Preop Diagnosis: peripheral foot neuropathy Postop Diagnosis: peripheral (foot) neuropathy Procedures performed: spinal cord stimulator trial and fluoroscopic guidance. Patient presents for a spinal cord stimulator trial. The patient has not experienced satisfactory relief from other treatment modalities such as anti- inflammatory medications, analgesic pain medications, physical therapy, and a home exercise program. The patient was informed of the risks of the procedure including spinal headache, epidural hematoma, wound dehiscence, wound infection, and failure of the trial to provide any pain relief. A timeout procedure was performed according to protocol after positioning and prepping the patient in the usual sterile fashion. The patient was identified, the correct side and site(s) of the procedure was confirmed, and all necessary equipment was available. The IV was placed successfully, was given ancef 2grams for prophylaxis. The patient was brought to the operating room where the patient was positioned the patient prone on the operating table with a pillow beneath the hips to reduce lumbar lordosis. The target area was prepped in the usual sterile fashion. Four half sheets were then placed along the borders of the spine. At this point, the image intensifying fluoroscope was brought in to image the appropriate levels. The appropriate interspace was identified using AP fluoroscopic guidance, and images were saved into our system. Local anesthesia was infiltrated in the skin. Small incisions were made in the skin at allow for needle insertion.(Sterile skin prep utilized chloraprep. Local skin anesthesia was achieved with 10 ml of 1% lidocaine without epinephrine and none was applied for topical anesthesia.) I then passed the epidural 3.5 in curved tuohy needles into the epidural space at this location. The following Leads were threaded under continuous fluoroscopic guidance using an interlaminar approach: Lead #1: 8 contact lead entered at the L2-3 interlaminar space level. The lead was advance to the correct location (top of T12 vertebral body). Lead #2: 8 contact lead entered at the L2-3 interlaminar space level. The lead was advance to the correct location (top of T12 vertebral body). The spinal cord stimulator sales representative raw fibers was on hand to perform with me various stimulation parameters. We were able to obtain successful coverage to the patient's pain. The patient was pleased withthese paresthesias and reported near complete coverage. I then removed the stylets and needles, taking care not to move the neuroelectrodes. Position of the neuroelectrodes was then confirmed after removal of epidural needles. I then secured the neuroelectrodes to the patient's back and the sales representative raw fibers explained further programming with the patient, as well as home care use. Disposition: The patient was brought to the recovery room in stable condition. All four extremitiesmoved purposefully. Stimulation was adequate in all areas. I have examined the patient and there are no new physical findings since original presentation. The patient is scheduled for removal of the temporary leads in three days Postcare: Patient can resume activities as tolerated. Please contact the office if you develop headache or fever, have difficulty with bowel or bladder function, or have redness or bruising at the procedure site. Of note, patient was on plavix, which was held for 7 days prior to procedure, plan to is to continue to hold plavix during the course of the trial, and will restart after lead removal. Cardiology clearance was obtained by office. documented in this encounter Plan of Treatment Upcoming Encounters Date Type Department Care Team (Late st Contact Info) Description 11/01/2024 9:15 AM EDT Office Visit [facility] [address] [phone] Aaron Graves, DPM [address] [address] Scheduled Orders Name Type Priority Associated Diagnoses Orde r Schedule Insertion stimulator spinal cord trial Procedures Routine Type 2 diabetes mellitus with diabetic polyneuropathy ([facility]) Once for 1 Occurrences starting 08/24/2024 until 08/24/2024 documented as of this encounter Procedures Procedure Name Priority Date/Time Associated Diagnosis Comments POCT GLUCOSE BLOOD Routine 08/24/2024 7: 25 AM EST documented in this encounter Results * (ABNORMAL) POCT Glucose, blood (08/24/2024 7:25 AM EST) Glucose POCT 145(H) 70 - 100 mg/dL 08/24/2024 7:26 AM EST [facility] Blood Capillary blood specimen / Unknown 08/24/2024 7:25 AM EST 08/24/2024 7:27 AM EST us Юлия Marmolejo FIELD REIMBURSEMENT MANAGER LAB POINT OF CARE TE ST DOCKED DEVICE UNSOLICITED RESULTS Final Result [facility] [address] [place] [address], documented in this encounter Visit Diagnoses Diagnosis Type 2 diabetes mellitus with diabetic polyneuropathy, unspecified whether exterminator insulin use (CMS/[facility]) [E11.42]- Primary Peripheral polyneuropathy [G62.9] documented in this encounter Administered Medications Inactive Administered Medications - up to 3 most recent administrations Medication Order MAR Action Action Date Dose Rate Site BUPivacaine HCl (MARCAINE) 0.25 % injection As needed, Starting on Fri08/24/24 at 1023, Intraprocedure Given 08/24/2024 10:23 AM EST 10 mL lidocaine (XYLOCAINE) 2 % injection As needed, Starting on Fri08/24/24 at 1023, Intraprocedure Given 08/24/2024 10:23 AM EST 10 mL documented in this encounter Discontinued Medications Medication Sig Discontinue Reason Start Date End Da te lidocaine (LIDODERM) 5 % patch Apply 1 patch topically 1 (one) time each day. Remove & discard patch within 12 hours or as directed by MD. Stop Taking at Discharge 06/30/2024 08/24/2024 documented as of this encounter Historical Medications * This list may reflect changes made after this encounter. cholecalciferol (VITAMIN D-3) 25 mcg (1,000 unit) tablet Take 1 tablet (1,000 Units total) by mouth 1 (one) time each day. glucose 4 gram chewable tablet Chew 4 tablets (16 g total) if needed for low blood sugar. testosterone cypionate (DEPO-TESTOTERON E) 200 mg/mL injection Inject 0.7 mL (140 mg total) into the shoulder, thigh, or buttocks every 14 (fourteen) days. Max Daily Amount: 140 mg tamsulosin (FLOMAX) 0.4 mg 24 hr capsule Take 1 capsule (0.4 mg total) by mouth at bedtime. Capsules should be taken 30 minutes following the same meal each day. sertraline (ZOLOFT) 100 mg tablet Take 2 tablets (200 mg total) by mouth 1 (one) time each day. rosuvastatin (CRESTOR) 20 mg tablet Take 1 tablet (20 mg total) by mouth at bedtime. risperiDONE (RisperDAL) 4 mg tablet Take 1 tablet (4 mg total) by mouth 2 (two) times a day. psyllium (METAMUCIL) 0.52 gram capsule Take 1 capsule (520 mg total) by mouth 2 (two) times a day. promethazine (PHENERGAN) 25 mg tablet Take 1 tablet (25 mg total) by mouth every 12 (twelve) hours if needed for nausea or vomiting. oxyBUTYnin XL (DITROPAN-XL) 5 mg 24 hr tablet Take by mouth. Do not crush, chew, or split. nitroglycerin (NITROSTAT) 0.[address] 1 tablet (0.4 mg total) under the tongue every 5 (five) minutes if needed for chest pain. metoprolol succinate (TOPROL-XL) 50 mg 24 hr tablet Take 1 tablet (50 mg total) by mouth 1 (one) time each day. Do not crush or chew. metFORMIN (FORTAMET) 1,000 mg 24 hr tablet Take 1 tablet (1,000 mg total) by mouth 2 (two) times a day. Do not crush, chew, or split. LORazepam (ATIVAN) 2 mg tablet Take 1 tablet (2 mg total) by mouth at bedtime. Max Daily Amount: 2 mg loperamide (IMODIUM) 2 mg capsule Take 1 capsule (2 mg total) by mouth 4 (four) times a day if needed for diarrhea. levothyroxine (SYNTHROID, LEVOTHROID) 25 mcg tablet Take by mouth 1 (one) time each day before breakfast. canagliflozin (Invokana) 100 mg tablet Take 1 tablet (100 mg total) by mouth 1 (one) time each day. imipramine (TOFRANIL) 10 mg tablet Take 1 tablet (10 mg total) by mouth at bedtime. hydrOXYzine HCL (ATARAX) 50 mg tablet Take 1 tablet (50 mg total) by mouth at bedtime as needed (SLEEP/ANXIETY) . glipiZIDE (GLUCOTROL XL) 2.5 mg 24 hr tablet Take 1 tablet (2.5 mg total) by mouth 1 (one) time each day. Do not crush, chew, or split. gabapentin (NEURONTIN) 400 mg capsule Take 1 capsule (400 mg total) by mouth 3 (three) times a day. fexofenadine (AUSTIN) 180 mg tablet Take 1 tablet (180 mg total) by mouth 1 (one) time each day. famotidine (PEPCID) 40 mg tablet Take by mouth 2 (two) times a day. dicyclomine (BENTYL) 20 mg tablet Take 1 tablet (20 mg total) by mouth 4 (four) times a day if needed. cyclobenzaprine (FLEXERIL) 5 mg tablet Take by mouth 3 (three) times a day. aspirin 81 mg EC tablet Take 1 tablet (81 mg total) by mouth 1 (one) time each day. clopidogreL (PLAVIX) 75 mg tablet Take 1 tablet (75 mg total) by mouth 1 (one) time each day. added in this encounter Care Teams Warehouse Production Worker Relationship Specialty Start Date End Date Audrey Smith MD [address] [phone] PCP - General 07/01/23 documented as of this encounter
--- OUTSIDE RECORDS SUMMARY | 2024-08-30 09:07 | XMS_ITS | Encounter Summary ---
Author Organization [employer] Address [address] [facility] [facility] [address] [place] [address] Care Team Providers Care Ethanol Maintenance Mechanic Name Role Phone Audrey Smith MD Primary Care Provide r Encounter Details Date Type Department Care Team ([facility] st Contact Info) Description 08/25/2024 Orders Only GENERIC EXTERNAL DATA DEPARTMENT Provider, Generic External Data Social History Tobacco Use Types Packs/Day Years Used Date Smoking Tobacco: Never Passive Smoke Exposure: Never Smokeless Tobacco: Never Alcohol Use Standard Drinks/Week Comments Never 0 (1 standard drink = 0.6 oz pur e alcohol) Alcohol Answer Date Recorded Frequency of Alcohol Consumption Not on file 05/21/2024 Average Number of Drinks Not on file 024 Frequency of Binge Drinking Not on file 07/2023 Score 0 05/21/2024 Depression Answer Date Recorded Patient Health Questionnaire-9 Score 0 05/21/2024 Patient Health Questionnaire-9 Score 0 05/21/2024 Last PHQ-9: Questionnaire Data Not on file 1 07/21/2023 Housing Stability Answer Date Recorded What is your housing situation today? I have catherine miguel 05/16/[address] you li ve. Do you have problems with any of the following? None of the above 05/16/2023 Food Insecurity Answer Date Recorded Within the past 12 months, y ou worried that your food would run out before you got money to buy more: Never True 05/16/2023 Within the past 12 months,th e food you bought just didn't last and you didn't have enough money to get more: Never True Transportation Answer Date Recorded In the past 12 months, has l ack of transportation kept you from medical appts, meetings, work or from getting things needed for daily living? No 08/01/2023 Utilities Answer Date Recorded In the past 12 months, has t he electric, gas, oil or water company threatened to shut off services in your home? No 08/01/2023 Depression Answer Date Recorded Patient Health Questionnaire-2 Score 0 05/21/2024 Sex and Gender Information Value Date Recorded Sex Assigned at Male 05/20/2022 10:33 AM EDT Legal Sex Male 10:33 AM EDT Gender Identity Male 05/20/2022 10:33 AM EDT Sexual Orientation Straight 05/20/2022 10 :33 AM EDT documented as of this encounter Plan of Treatment Upcoming Encounters Date Type Department Care Team (Late st Contact Info) Description 09/17/2024 10:00 AM EST Office Visit [facility] [address] [place] [address] Audrey Smith MD [address] [place], [place] [phone] documented as of this encounter Procedures Procedure Name Priority Date/Time Associated Diagnosis Comments LIPID PANEL, STANDARD Routine 08/25/2024 7:10 AM EST documented in this encounter Results * (ABNORMAL) Lipid Panel, Standard (08/25/2024 7:10 AM EST) Triglycerides 181(H) <150 mg/dL [facility] Comment:Desirable Triglyceri de: less than 150 mg/dLBorderline High Triglyceride 150-199 mg/dLHigh Triglyceride: 200-499 mg/dLVery High Triglyceride: greater than or equal to 5OO mg/dL Cholesterol 142 <200 mg/dL [facility] Comment:Desirable Cholestero l: less than 200 mg/dLBorderline High Cholesterol: 200-239 mg/dLHigh Cholesterol: greater than 239 mg/dL LDL Cholesterol Calculated 68 <100 mg/dL [facility] Comment:Desirable LDL: less than 100 mg/dLNear Optimal/Above Optimal LDL: 110- 129 mg/dLBorderline High LDL: 130-159 mg/dLHigh LDL: 160-189 mg/dLVery High LDL: greater than or equal to 190 mg/dL HDL Cholesterol 38(L) >40 mg/dL [facility] Comment:Desirable HDL: great er than 40 mg/dL Note: This HDL assay may give artificially low results in patients with liver disease. 08/25/2024 7:10 AM EST 08/25/2024 7:10 AM EST us Generic External Data Provider LAB BLOOD ORDERAB LES Final Result Performing Organization Address City/State/[facility] Co de Phone Number [facility] [address] [place] [address] [phone] documented in this encounter Visit Diagnoses Not on filedocumented in this encounter Additional Health Concerns Assessment Noted Time PHQ-9 Depression Total Score: 0 05/21/20 24 9:38 AM EDT documented as of this encounter Care Teams Ethanol Maintenance Mechanic Relationship Specialty Start Date End Date Audrey Smith MD [address] [place] [address] PCP - General Family Medicine 11/20/17 documented as of this encounter
--- OUTSIDE RECORDS SUMMARY | 2024-08-30 09:07 | XMS_ITS | Encounter Summary ---
Author Organization [employer] Address [address] [place] [address] [address] [place] [address] Care Team Providers Care Acid Dipper Name Role Phone Audrey Smith MD Primary Care Provide r Reason for Visit * Reason Comments Med Refill Encounter Details Date Type Department Care Team (Late Contact Info) Description 01/10/2023 Refill [facility] [address] [place] [phone] Name, MD Sameer [address] [place] [phone] Social History Tobacco Use Types Packs/Day Years Used Date Smoking Tobacco: Never Smokeless Tobacco: Never Sex and Gender Information Value Date Recorded Sex Assigned at Male 05/20/2022 10:33 AM EDT Legal Sex Male 10:33 AM EDT Gender Identity Male 05/20/2022 10:33 AM EDT Sexual Orientation Straight 05/20/2022 10 :33 AM EDT COVID-19 Exposure Response Date Recorded In the last 10 days, have yo u been in contact with someone who was confirmed or suspected to have Coronavirus/COVID-19? No / Unsure 12/12/2022 2:40 PM EDT documented as of this encounter Plan of Treatment Upcoming Encounters Date Type Department Care Team (Late Contact Info) Description 09/17/2024 10:00 AM EST Office Visit [facility] [address] [place] [phone] Audrey Smith MD [address] [place] [phone] documented as of this encounter Visit Diagnoses Not on filedocumented in this encounter Care Teams Acid Dipper Relationship Specialty Start Date End Date Audrey Smith MD [address] [place] [phone] PCP - General Family Medicine 11/20/17 documented as of this encounter
--- OUTSIDE RECORDS SUMMARY | 2024-08-30 09:07 | XMS_ITS | Encounter Summary ---
Author Organization [employer] Address [address] [facility] [address] [place] [address] Care Team Providers Care At Home Independent Call Center Agent Name Role Phone Audrey Smith MD Primary Care Provide r Reason for Visit * Reason Onset Date Comments Med Refill 07/26/2024 Encounter Details Date Type Department Care Team ([facility] st Contact Info) Description 07/26/2024 Telephone [facility] [address] [place] [address] Audrey Smith MD [address] [place] [address] Med Refill Social History Tobacco Use Types Packs/Day Years [...] AM EDT documented as of this encounter Miscellaneous Notes * Telephone Encounter - Amie Gonzalez RN - 08/26/2024 4:18 PM EST TC placed to patient [phone] via [employer] ([facility] #[id number]) in regards to below message. Patient advised PCP has sent Jardiance to the pharmacy as invokana is not covered by the patients insurance. Patient verbalized understanding. Patient to f/u PRN. * Telephone Encounter - Radha Hernández - 07/26/2024 8:44 AM EST Pt walked in stating he received a letter informing him PA for Invokana medication was denied due to there being an alternative medication that did not need a PA. Pt would like to speak with PCP RN about what the next step will be. documented in this encounter Plan of Treatment Upcoming Encounters Date Type Department Care Team (Late st Contact Info) Description 09/17/2024 10:00 AM EST Office Visit [address] [address] Audrey Smith MD [address] [place] [address] documented as of this encounter Visit Diagnoses Not on filedocumented in this encounter Additional Health Concerns Assessment Noted Time PHQ-9 Depression Total Score: 0 05/21/20 24 9:38 AM EDT documented as of this encounter Care Teams At Home Independent Call Center Agent Relationship Specialty Start Date End Date Audrey Smith MD [address] [place] [address] PCP - General Family Medicine 11/20/17 documented as of this encounter
--- OUTSIDE RECORDS SUMMARY | 2024-08-30 09:07 | XMS_ITS | Encounter Summary ---
Author Organization [employer] Address [address] [facility] [address]t [place] [address] Care Team Providers Care Concrete Vault Maker Name Role Phone Audrey Smith MD Primary Care Provide r Reason for Visit * Reason Comments Med Refill Encounter Details Date Type Department Care Team ([facility] st Contact Info) Description 08/26/2024 Refill [facility] [address] [place] [address] Audrey Smith MD [address] [place] [address] Diabetic polyneuropathy associated with type 2 diabetes mellitus (CMS/HCC) Social History Tobacco Use Types Packs/Day [...] Description 09/17/2024 10:00 AM EST Office Visit [facility] [address] [place] [address] Audrey Smith MD [address] [place], [place] [phone] documented as of this encounter Visit Diagnoses Diagnosis Diabetic polyneuropathy associated with type 2 diabetes mellitus (CMS/HCC) documented in this encounter Additional Health Concerns Assessment Noted Time PHQ-9 Depression Total Score: 0 05/21/20 24 9:38 AM EDT documented as of this encounter Care Teams Concrete Vault Maker Relationship Specialty Start Date End Date Audrey Smith MD [address] [place], [place] [phone] PCP - General Family Medicine 11/20/17 documented as of this encounter
--- OUTSIDE RECORDS SUMMARY | 2024-08-30 09:07 | XMS_ITS | Encounter Summary ---
Author Organization [employer] Address [address] [facility] [address] [facility] [address] [place] [address] Care Team Providers Care Spike Machine Heater Name Role Phone Audrey Smith MD Primary Care Provide r Encounter Details Date Type Department Care Team ([facility] st Contact Info) Description 08/26/2024 Orders Only [facility] [address] [place] [address] Audrey Smith MD [address] [place] [address] Type 2 diabetes mellitus with hyperglycemia, without long-term current use of insulin ([facility]) (Primary Dx) Social History Tobacco Use Types Packs/Day Years [...] Description 09/17/2024 10:00 AM EST Office Visit [facility] [address] [place] [address] Audrey Smith MD [address] [place] [address] documented as of this encounter Visit Diagnoses Diagnosis Type 2 diabetes mellitus with hyperglycemia, without long-term current use of insulin ([facility])- Primary documented in this encounter Additional Health Concerns Assessment Noted Time PHQ-9 Depression Total Score: 0 05/21/20 24 9:38 AM EDT documented as of this encounter Care Teams Spike Machine Heater Relationship Specialty Start Date End Date Audrey Smith MD [address] [place] [address] PCP - General Family Medicine 11/20/17 documented as of this encounter
--- OUTSIDE RECORDS SUMMARY | 2024-08-30 09:07 | XMS_ITS | Encounter Summary ---
Author Organization [employer] Address [address] [place] [address] [address] [place] [address] Care Team Providers Care [employer] Name Role Phone Audrey Smith MD Primary Care Provide r Encounter Details Date Type Department Care Team ([facility] Contact Info) Description 08/30/2022 Orders Only [facility] [address] [place] [phone] Vane Cervantes MD [address] [place] [phone] Muscle spasm (Primary Dx) Social History Tobacco Use Types Packs/Day Years Used Date Smoking Tobacco: Never Assessed Sex and Gender Information Value Date Recorded Sex Assigned at Male 05/20/2022 10:33 AM EDT Legal Sex Male 10:33 AM EDT Gender Identity Male 05/20/2022 10:33 AM EDT Sexual Orientation Straight 05/20/2022 10 :33 AM EDT documented as of this encounter Plan of Treatment Upcoming Encounters Date Type Department Care Team (Late Contact Info) Description 09/17/2024 10:00 AM EST Office Visit [facility] [address] [place] [phone] Audrey Smith MD [address] [place], [place] [phone] documented as of this encounter Visit Diagnoses Diagnosis Muscle spasm- Primary Spasm of muscle documented in this encounter Care Teams [employer] Relationship Specialty Start Date End Date Audrey Smith MD [address] [place] [phone] PCP - General Family Medicine 11/20/17 documented as of this encounter
--- OUTSIDE RECORDS SUMMARY | 2024-08-30 09:07 | XMS_ITS | Clinical Summary ---
Author Organization [facility] Address [address] [place] [address] [address] [place] [address] Care Team Providers Care Golf Sales Associate Name Role Phone Audrey Smith MD Primary Care Provide r Allergies No known active allergies Medications Praluent 75 MG/ML injection INJECT 75 MG SUBCUTANEOUSLY EVERY 2 WEEKS DIRECTED 023 Active dicyclomine (Bentyl) 20 MG tablet TAKE 1 TABLET BY MOUTH FOUR TIMES DAILY FOR FOR CRAMPS 023 Active hydrOXYzine HCl (Atarax) 50 MG tablet TAKE 1 TABLET BY MOUTH AT BEDTIME NEEDED FOR SLEEP OR FOR ANXIETY 023 Active hydrocortisone (Anusol-HC) 2.5 % rectal cream APPLY RECTALLY TWICE DAILY NEEDED FOR PAIN 023 Active loperamide (Imodium) 2 MG capsule TAKE 1 CAPSULE BY MOUTH TWICE DAILY NEEDED FOR DIARRHEA 023 Active nitroglycerin (Nitrostat) 0.[address] 1 TABLET UNDER THE TONGUE NEEDED FOR CHEST PAIN - MAY REPEAT IN 5 MINUTES TWICE. IF NO RELIEF CALL 911 OR GO TO EMERGENCY ROOM. 023 Active oxybutynin XL (Ditropan-XL) 5 MG 24 hr tablet TAKE 1 TABLET BY MOUTH EVERYDAY AT NOON 023 Active Zenpep 5000-94025 units capsule delayed-release particles capsule Take 1 capsule by mouth 4 times daily. 023 Active promethazine (Phenergan) 25 MG tablet TAKE 1 TABLET BY MOUTH EVERY TWELVE HOURS NEEDED FOR NAUSEA AND VOMITING 023 Active risperiDONE (RisperDAL) 4 MG tablet TAKE 1 TABLET BY MOUTH TWICE DAILY AT NOON AND BEDTIME 023 Active rosuvastatin (Crestor) 20 MG tablet Take 20 mg by mouth at bedtime. 023 Active sertraline (Zoloft) 50 MG tablet TAKE 1 TABLET BY MOUTH EVERYDAY AT NOON 023 Active B-D 3CC LUER-CHRISTINE SYR 84UW4-5/2 21G X 1-2 3 ML misc USE DIRECTED 023 Active tamsulosin (Flomax) 0.4 MG 24 hr capsule Take 0.4 mg by mouth at bedtime. 023 Active testosterone cypionate (Depo-Testostero ne) 200 MG/ML injection INJECT 0.7 ML (140MG) INTRAMUSCULARLY EVERY 2 WEEKS 023 Active ibuprofen 600 MG tablet TAKE 1 TABLET BY MOUTH THREE TIMES DAILY WITH FOOD 30 tablet Active lidocaine (Lidoderm) 5 % patch APPLY 1 PATCH TOPICALLY TO SKIN, LEAVE ON FOR 12 HOURS AND OFF FOR 12 HOURS DIRECTED 30 patch 1 024 Active TRUEplus Lancets 33G miscIndications: Type 2 diabetes mellitus with other specified complication, without long-term current use of insulin (CMS/[facility]) TEST BLOOD SUGAR TWICE DAILY 100 each 11 Active Blood Glucose Monitoring Suppl (FreeStyle Lite) w/Device kitIndications:T ype 2 diabetes mellitus with hyperglycemia, without long-term current use of insulin (CMS/HCC) 1 kit 2 times daily. 1 kit 024 Active FREESTYLE LITE test stripIndications :Type 2 diabetes mellitus with hyperglycemia, without long-term current use of insulin (CMS/[facility]) TEST BLOOD SUGAR TWICE DAILY 50 strip 11 024 Active sertraline (Zoloft) 100 MG tablet TAKE 2 TABLETS BY MOUTH ONCE DAILY AT NOON 024 Active methocarbamol (Robaxin) 750 MG tablet TAKE 1 TABLET BY MOUTH EVERY TWELVE HOURS Active imipramine (Tofranil) 10 MG tablet Take 10 mg by mouth at bedtime. 024 Active LORazepam (Ativan) 2 MG tablet Take 2 mg by mouth at bedtime. 024 Active fexofenadine (Mila) 180 MG tablet TAKE 1 TABLET BY MOUTH EVERYDAY AT NOON Active famotidine (Pepcid) 40 MG tablet Take 40 mg by mouth 2 times daily. Active Reguloid 0.52 g capsule Take 1 capsule by mouth 2 times daily. Active B-D SYRINGE LUER-CHRISTINE 1CC 1 ML misc USE DIRECTED Active Easy Touch Hypodermic Needle 22G X 1-07/22 misc USE FOR INJECT testosterone Active BD Hypodermic Needle 18G X 1 misc USE WITH testosterone Active aspirin (Aspirin Low Dose) 81 MG EC tabletIndication s:Coronary artery disease involving [place] coronary artery of [place] heart, unspecified whether angina present TAKE 1 TABLET BY MOUTH EVERYDAY AT NOON 90 tablet 1 024 Active clopidogrel (Plavix) 75 MG tabletIndication s:Coronary artery disease involving [place] coronary artery of [place] heart, unspecified whether angina present TAKE 1 TABLET BY MOUTH EVERYDAY AT NOON 90 tablet 1 024 Active levothyroxine (Synthroid, Levoxyl) 25 MCG tabletIndication s:Hypothyroidism , unspecified type TAKE 1 TABLET BY MOUTH EVERY MORNING BEFORE A MEAL 90 tablet 1 024 Active metFORMIN (Glucophage) 1000 MG tablet TAKE 1 TABLET BY MOUTH TWICE DAILY AT NOON AND IN THE EVENING CF 180 tablet 1 024 Active metoprolol succinate XL (Toprol-XL) 50 MG 24 hr tabletIndication s:Coronary artery disease involving [place] coronary artery of [place] heart, unspecified whether angina present TAKE 1 TABLET BY MOUTH EVERYDAY AT NOON 90 tablet 1 024 Active cholecalciferol (D3-1000) 25 MCG (1000 UT) capsuleIndicatio ns:Vitamin D deficiency TAKE 1 TABLET BY MOUTH EVERYDAY AT NOON 90 capsule 1 024 Active cyclobenzaprine (Flexeril) 5 MG tabletIndication s:Muscle spasm TAKE 1 TABLET BY MOUTH THREE TIMES DAILY 30 tablet 2 025 Active glipiZIDE XL (Glucotrol XL) 2.5 MG 24 hr tabletIndication s:Type 2 diabetes mellitus without complication, unspecified whether penitentiary insulin use (CMS/HCC) TAKE 1 TABLET BY MOUTH EVERYDAY AT NOON 90 tablet 1 025 Active gabapentin (Neurontin) 400 MG capsuleIndicatio ns:Diabetic polyneuropathy associated with type 2 diabetes mellitus (CMS/HCC) TAKE 1 CAPSULE BY MOUTH AT NOON, EVENING, AND BEDTIME 90 capsule 1 025 Active empagliflozin (Jardiance) 10 MGIndications:Ty pe 2 diabetes mellitus with hyperglycemia, without long-term current use of insulin (CMS/HCC) Take 1 tablet (10 mg) by mouth Once per day. 30 tablet 11 025 2025 Active glipiZIDE XL (Glucotrol XL) 2.5 MG 24 hr tabletIndication s:Type 2 diabetes mellitus without complication, unspecified whether penitentiary insulin use (CMS/HCC) TAKE 1 TABLET BY MOUTH EVERYDAY AT NOON 90 tablet 1 024 2024 Discontinued canagliflozin (Invokana) 100 MG TAKE 1 TABLET BY MOUTH EVERYDAY AT NOON BEFORE MEALS 90 tablet 1 024 2024 Discontinued gabapentin (Neurontin) 400 MG capsuleIndicatio ns:Diabetic polyneuropathy associated with type 2 diabetes mellitus (CMS/HCC) TAKE 1 CAPSULE BY MOUTH AT NOON, EVENING, AND BEDTIME 90 capsule 1 024 2024 Discontinued Active Problems Problem Noted Date Diagnosed Date Chronic right hip pain 02/26/2024 Assessment & Plan (02/26/2024 9:57 AM EDT): Patient will call pain management for appointment I instructed to contact me if he needs referral or pian medication (he does not remember the name of the medication that helped him) Chronic left shoulder pain 02/26/2024 Assessment & Plan (02/26/2024 9:56 AM EDT): Patient will call pain management Type 2 diabetes mellitus wit h hyperglycemia, without long-term current use of insulin 12/04/2022 Assessment & Plan (02/26/2024 9:58 AM EDT): Diabetes is: controlled - Lab Results Component Value Date HGBA1C 7.1 (A) 02/26/2024 HGBA1C 7.4 (A) 11/19/2023 HGBA1C 7.6 (A) 08/01/2023 - Lab Results Component Value Date MICROALBUR <0.2 12/07/2021 CREATININE 1.01 12/03/2023 -Changes: none - Diabetic eye exam:up to date - Diabetic foot exam:up to date - Continue lifestyle modifications - Continue current medications - Follow up: 3 months Assessment & Plan (11/19/2023 9:44 AM EDT): Diabetes is: almost at goal - Lab Results Component Value Date HGBA1C 7.4 (A) 11/19/2023 HGBA1C 7.6 (A) 08/01/2023 HGBA1C 7.7 (A) 05/16/2023 - Lab Results Component Value Date MICROALBUR <0.2 12/07/2021 CREATININE 1.10 12/26/2022 -Changes: none - Diabetic eye exam:up to date - Diabetic foot exam:up to date - Continue lifestyle modifications - Continue current medications - Follow up: 3 months Assessment & Plan (08/01/2023 10:51 AM EST): - Lab Results Component Value Date HGBA1C 7.7 (A) 05/16/2023 HGBA1C 7.1 01/22/2023 HGBA1C 7.3 (A) 12/04/2022 - Lab Results Component Value Date MICROALBUR <0.2 12/07/2021 CREATININE 1.10 12/26/2022 - Diabetic eye exam:up to date - Diabetic foot exam:upcoming podiatry visit - Continue lifestyle modifications - Continue current medications Assessment & Plan (02/25/2023 11:43 AM EDT): - Lab Results Component Value Date HGBA1C 7.1 01/22/2023 HGBA1C 7.3 (A) 12/04/2022 HGBA1C 7.6 (H) 11/26/2021 - Lab Results Component Value Date MICROALBUR <0.2 12/07/2021 CREATININE 1.10 12/26/2022 - Diabetic eye exam:up to date - Diabetic foot exam:up to date - Continue lifestyle modifications - Continue current medications Primary hypertension 12/04/2022 Assessment & Plan (08/01/2023 10:50 AM EST): - Aerobic exercise to reduce BP. Initial goal of 30 min walk 3-5x/week. Increase as tolerated. - low-sodium diet (goal: <2g/day) and heart healthy diet such as DASH to reduce BP and prevent ASCVD. - Home BP monitoring 1-2 x day with goal of <140/90. - Seek immediate medical attention for chest pain, palpitations, SOB, syncope, or sudden changes in mental status. - Do not change or discontinue current prescriptions without first consulting health care provider Assessment & Plan (05/16/2023 10:42 AM EDT): - Aerobic exercise to reduce BP. Initial goal of 30 min walk 3-5x/week. Increase as tolerated. - low-sodium diet (goal: <2g/day) and heart healthy diet such as DASH to reduce BP and prevent ASCVD. - Home BP monitoring 1-2 x day with goal of <140/90. - Seek immediate medical attention for chest pain, palpitations, SOB, syncope, or sudden changes in mental status. - Do not change or discontinue current prescriptions without first consulting health care provider Assessment & Plan (12/04/2022 10:19 AM EDT): Maintenance: BMP: ordered today Lipid Panel: ordered today - Aerobic exercise to reduce BP. Initial goal of 30 min walk 3-5x/week. Increase as tolerated. - low-sodium diet (goal: <2g/day) and heart healthy diet such as DASH to reduce BP and prevent ASCVD. - Home BP monitoring 1-2 x day with goal of <140/90. - Seek immediate medical attention for chest pain, palpitations, SOB, syncope, or sudden changes in mental status. - Do not change or discontinue current prescriptions without first consulting health care provider Irritable bowel syndrome wit h both constipation and diarrhea 12/04/2022 Chronic bilateral low back pain without sciatica 12/04/2022 Assessment & Plan (12/04/2022 10:19 AM EDT): Continue to follow with specialist Diabetic polyneuropathy asso ciated with type 2 diabetes mellitus 12/04/2022 Assessment & Plan (05/21/2024 10:10 AM EDT): Patient being follow by podiatry Diabetes management optimized Diabetic polyneuropathy 05/18/2018 Acquired hypothyroidism 11/20/2017 Anxiety 11/20/2017 Stented coronary artery 11/20/2017 Polyp of colon 11/20/2017 Hyperuricemia 11/20/2017 CAD in [place] artery 11/20/2017 Benign prostatic hyperplasia with nocturia 11/20 Exercise-induced angina 11/20/2017 Essential hypertension 11/20/2017 Assessment & Plan (05/21/2024 10:11 AM EDT): Maintenance: BMP: ordered Lipid Panel: ordered ASCVD Risk: Calculate pending updated labs, on rosuvastatin 20mg daily - Aerobic exercise to reduce BP. Initial goal of 30 min walk 3-5x/week. Increase as tolerated. - low-sodium diet (goal: <2g/day) and heart healthy diet such as DASH to reduce BP and prevent ASCVD. - Home BP monitoring 1-2 x day with goal of <140/90. - Seek immediate medical attention for chest pain, palpitations, SOB, syncope, or sudden changes in mental status. - Do not change or discontinue current prescriptions without first consulting health care provider Assessment & Plan (02/26/2024 9:54 AM EDT): - Aerobic exercise to reduce BP. Initial goal of 30 min walk 3-5x/week. Increase as tolerated. - low-sodium diet (goal: <2g/day) and heart healthy diet such as DASH to reduce BP and prevent ASCVD. - Home BP monitoring 1-2 x day with goal of <140/90. - Seek immediate medical attention for chest pain, palpitations, SOB, syncope, or sudden changes in mental status. - Do not change or discontinue current prescriptions without first consulting health care provider Assessment & Plan (11/19/2023 9:44 AM EDT): - Aerobic exercise to reduce BP. Initial goal of 30 min walk 3-5x/week. Increase as tolerated. - low-sodium diet (goal: <2g/day) and heart healthy diet such as DASH to reduce BP and prevent ASCVD. - Home BP monitoring 1-2 x day with goal of <140/90. - Seek immediate medical attention for chest pain, palpitations, SOB, syncope, or sudden changes in mental status. - Do not change or discontinue current prescriptions without first consulting health care provider Assessment & Plan (02/25/2023 11:43 AM EDT): - Aerobic exercise to reduce BP. Initial goal of 30 min walk 3-5x/week. Increase as tolerated. - low-sodium diet (goal: <2g/day) and heart healthy diet such as DASH to reduce BP and prevent ASCVD. - Home BP monitoring 1-2 x day with goal of <140/90. - Seek immediate medical attention for chest pain, palpitations, SOB, syncope, or sudden changes in mental status. - Do not change or discontinue current prescriptions without first consulting health care provider Type 2 diabetes mellitus 11/20/2017 Assessment & Plan (05/16/2023 10:43 AM EDT): - Lab Results Component Value Date HGBA1C 7.1 01/22/2023 HGBA1C 7.3 (A) 12/04/2022 HGBA1C 7.6 (H) 11/26/2021 - Lab Results Component Value Date MICROALBUR <0.2 12/07/2021 CREATININE 1.10 12/26/2022 - - Diabetic eye exam: up to date - Diabetic foot exam: referral today -Patient will continue with same medications, I extensibly commercial counsel him about diabetic diet and let him know his glucose also will likely go down after back injections wears out - Encounters Date Type Department Care Team Description 08/26/2024 Orders Only [facility] [address] [place] [address] Audrey Smith MD Type 2 diabetes mellitus with hyperglycemia, without long-term current use of insulin ([facility]) (Primary Dx) 08/26/2024 Refill [facility] [address] [place] [address] Audrey Smith MD Diabetic polyneuropathy associated with type 2 diabetes mellitus (CMS/HCC) 08/25/2024 Orders Only GENERIC EXTERNAL DATA DEPARTMENT Provider, Generic External Data 08/01/2024 Refill [facility] [address] [place] [address] Audrey Smith MD Type 2 diabetes mellitus without complication, unspecified whether penitentiary insulin use ([facility]) 07/29/2024 Refill [facility] [address] [place] [address] Audrey Smith MD Muscle spasm 07/26/2024 Telephone [facility] [address] [place] [address] Audrey Smith MD Med Refill 07/09/2024 Telephone [facility] [address] [place] [address] Audrey Smith MD Prior Authorization ([facility] Request: Nasreen) 06/27/2024 Refill [facility] [address] [place] [address] Audrey Smtih MD Diabetic polyneuropathy associated with type 2 diabetes mellitus ([facility]) 06/11/2024 Telephone [facility] [address] [place], [place] [phone] Audrey Smith MD Prior Authorization 06/03/2024 Refill [facility] [address] [place] [address] Audrey Smith MD Coronary artery disease involving [place] coronary artery of [place] heart, unspecified whether angina present; Hypothyroidism, unspecified type; Vitamin D deficiency 06/02/2024 Refill [facility] [address] [place] [address] Audrey Smith MD from Last 3 Months Immunizations Name Administration Dates Next Due Hep B, adult 12/07/2020,01/25/2019,12/25/2018 Influenza injectable quadriv alent IIV4 with preservative 05/24/2019,04/07/2018 Influenza injectable quadriv alent preservative free 05/16/2023,04/18/2022,04/13/2021,2019 Influenza, seasonal, injecta ble, preservative free 05/21/2024 Pfizer Covid-19 Vaccine 12+ 05/21/2024, Pfizer Covid-19 Vaccine 12+ Bivalent 07/10/2022 Pfizer Covid-19 Vaccine 12+ jenny-sucrose (Allison Cap) 10/31/2021 Pneumococcal Conjugate PCV 20 10/22/2023 Tdap 03/16/2018 Zoster, Recombinant 08/09/2021,05/30/2021 Social History Tobacco Use Types Packs/Day Years Used Date Smoking Tobacco: Never Passive Smoke Exposure: Never Smokeless Tobacco: Never Tobacco Cessation:Counseling Given: Not Answered Alcohol Use Standard Drinks/Week Comments Never 0 [...] Orientation Straight 05/20/2022 10 :33 AM EDT Last Filed Vital Signs Vital Sign Reading Time Taken Comments Blood Pressure 114/80 05/21/2024 9:35 AM EDT Pulse 65 05/21/2024 9:35 AM EDT Temperature 36 ??C (96.8 ??F) 05/21/2024 9:35 AM EDT Respiratory Rate 16 05/21/2024 9:35 AM EDT Oxygen Saturation 98% 05/21/2024 9:35 AM EDT Inhaled Oxygen Concentration - - Weight 76.7 kg (169 lb) 05/21/2024 9:35 AM EDT Height 167.6 cm (5' 6 ) 05/21/2024 9:35 AM EDT Body Mass Index 27.28 05/21/2024 9:35 AM EDT Plan of Treatment Upcoming Encounters Date Type Department Care Team (Late st Contact Info) Description 09/17/2024 10:00 AM EST Office Visit [facility] [address] [place] [address] Audrey Smith MD [address] [place] [address] Health Maintenance Due Date Last Done Comments CT Colonography 1969 FIT DNA/Cologuard 1969 FIT 1969 FOBT 1969 Sigmoidoscopy 1969 Diabetes: Foot Exam 11/07/1979 Hepatitis C Screening 11/07/1987 Colonoscopy 05/22/2023 05/22/2021 Colorectal Cancer Screening 05/22/2023 SDOH Screening 08/01/2024 08/01/2023 Diabetes: Hemoglobin A1C 08/21/2024 024, 02/26/2024, 11/19/2023, Additional history exists Alcohol/Substance Use Screening 05/21/2025 05/21/2024 Depression Screening 05/21/2025 05/21/2024, 05/21/20 Tobacco Screening 05/21/2025 05/21/2024 Diabetes: Urine Protein Screening 06/02/2025 06/02/2024, 12/26/2022, 12/07/2021, Additional history exists Lipid Panel 08/25/2025 08/25/2024, 05/21, 12/03/2023, Additional history exists Eye Exam 01/05/2026 01/06/2024, 12/19, 01/06/2024, Additional history exists DTaP/Tdap/Td Vaccines (2 - Td or Tdap) 03/16/2028 03/16/2018 RSV Patients and Patients Aged 60 years or older (1 - 1-dose 75+ series) 2044 HIV Screening Completed 10/01/2019 Hepatitis B Vaccines Completed 12/07/2020, 01/25/2019, 12/25/2018 Zoster Vaccines Completed 08/09/2021, 05/30/2021 Pneumococcal Vaccine: 50+ Years Completed 10/22/2023 COVID-19 Vaccine Completed 05/21/2024, 06/2024, [...] patient's age to complete this topic Meningococcal Vaccine Aged Out No keya umesh eligible based on patient's age to complete this topic RSV under 20 months Aged Out No longe r eligible based on patient's age to complete this topic Rotavirus Vaccines Aged Out No longer eligible based on patient's age to complete this topic Procedures Procedure Name Priority Date/Time Associated Diagnosis Comments LIPID PANEL, STANDARD Routine 08/25/2024 7:10 AM EST TSH W/REFLEX TO FT4 Routine 06/02/2024 8 :55 AM EST Type 2 diabetes mellitus with hyperglycemia, without long-term current use of insulin ([facility]) COMPREHENSIVE METABOLIC PANEL Routine 06/02/2024 8:55 AM EST Type 2 diabetes mellitus with hyperglycemia, without long-term current use of insulin (CMS/HCC) ALBUMIN, RANDOM URINE W/CREATININE Routine 06/02/2024 8:55 AM EST Type 2 diabetes mellitus with hyperglycemia, without long-term current use of insulin (CMS/HCC) LIPID PANEL, STANDARD Routine 06/02/2024 8:55 AM EST Type 2 diabetes mellitus with hyperglycemia, without long-term current use of insulin (CMS/HCC) POCT GLYCATED HEMOGLOBIN, TOTAL Routine 05/21/2024 9:37 AM EDT Type 2 diabetes mellitus with hyperglycemia, without long-term current use of insulin (CMS/HCC) HM COLONOSCOPY Routine 05/22/2021 ZZZ HISTORICAL HIV AB/AG Routine 10/01/2019 10:28 AM EDT from Last 3 Months or Most Recently Relevant to Health Maintenance Results * (ABNORMAL) Lipid Panel, Standard (08/25/2024 7:10 AM EST) Only the most recent of2 resultswithin the time period is included. Triglycerides 181(H) <150 mg/dL [facility] Comment:Desirable Triglyceri de: less than 150 mg/dLBorderline High Triglyceride 150-199 mg/dLHigh Triglyceride: 200-499 mg/dLVery High Triglyceride: greater than or equal to 5OO mg/dL Cholesterol 142 <200 mg/dL [facility] Comment:Desirable Cholestero l: less than 200 mg/dLBorderline High Cholesterol: 200-239 mg/dLHigh Cholesterol: greater than 239 mg/dL LDL Cholesterol Calculated 68 <100 mg/dL [facility] Comment:Desirable LDL: less than 100 mg/dLNear Optimal/Above Optimal LDL: 110- 129 mg/dLBorderline High LDL: 130-159 mg/dLHigh LDL: 160-189 mg/dLVery High LDL: greater than or equal to 190 mg/dL HDL Cholesterol 38(L) >40 mg/dL [facility] Comment:Desirable HDL: great er than 40 mg/dL Note: This HDL assay may give artificially low results in patients with liver disease. 08/25/2024 7:10 AM EST 08/25/2024 7:10 AM EST us Generic External Data Provider LAB BLOOD ORDERAB LES Final Result Performing Organization Address [facility] Co de Phone Number [facility] [address] [place] [phone] * TSH W/Reflex to FT4 (06/02/2024 8:55 AM EST) TSH reflex Free T4 2.21 0.32 - 4.0 uIU/mL [facility] Blood Venous blood specimen / Unknown 06/02/2024 8:55 AM EST 06/02/2024 10:51 AM EST us Audrey Holman MD LAB BLOOD ORDERABLES Final Result Performing Organization Address [facility] Phone Number [facility] [address] [place] [phone] * Albumin, Random Urine W/Creatinine (06/02/2024 8:55 AM EST) [facility] Creatinine, Urine 107.27 mg/dL [facility] Microalbumin Urine <5.0 mg/L [facility] Microalbum Creatinine Ratio Ur TNP <30 ug/mg cr [facility] Comment:Unable to calculate albumin/creatinine ratio due to lowmicroalbumin or creatinine result. Urine (Urine, Random) 06/02/2024 8:55 AM EST 06/02/2024 10:47 AM EST us Audrey Holman MD LAB URINE ORDERABLES Final Result Performing Organization Address [facility] Co de Phone Number [facility] [address] [place] [phone] * (ABNORMAL) Comprehensive Metabolic Panel (06/02/2024 8:55 AM EST) Sodium 137 135 - 145 mmol/L [facility] Potassium 4.4 3.3 - 5.1 mmol/L [facility] Chloride 99 96 - 108 mmol/L [facility] Carbon Dioxide 31(H) 22 - 29 mmol/L [facility] Anion Gap 11(L) 12 - 20 [facility] Urea Nitrogen (BUN) 10 9 - 16 mg/dL [facility] Creatinine, Serum 0.92 0.5 - 1.4 mg/dL [facility] Estimated Glomerular Filt Rate >60 [facility] Comment:Chronic Kidney Disea se: Estimated GFR < 60 mL/min/1.52w3Npduom Kidney Disease: Estimated GFR < 15 mL/min/1.73m2 Glucose 166(H) 60 - 115 mg/dL [facility] Calcium 10.0 8.4 - 10.2 mg/dL [facility] Bilirubin, Total 0.7 0.0 - 1.0 mg/dL [facility] Aspartate Amino Transferase 28 5 - 37 U/L [facility] Alanine Aminotransferase 32 0 - 40 U/L [facility] Total Protein 6.9 6.5 - 8.0 g/dL [facility] Albumin Level 4.1 3.5 - 5.0 g/dL [facility] Alkaline Phosphatase 82 39 - 117 U/L [facility] Blood Venous blood specimen / Unknown 06/02/2024 8:55 AM EST 06/02/2024 10:51 AM EST us Audrey Holman MD LAB BLOOD ORDERABLES Final Result [facility] [address] [place], [place] [phone] * (ABNORMAL) POCT HGB A1C (05/21/2024 9:37 AM EDT) Hemoglobin A1C 7.3(A) 4.0 - 6.0 % QC Media Lot # [id number] Lot# Expiration Date Blood 05/21/2024 9:37 AM EDT Audrey Holman MD POINT OF CARE TEST EN TER/EDIT ORDERABLES Final Result * Colonoscopy (05/22/2021) Historical Provider HEALTH MAINTENANCE Final Result * HIV AB/AG (10/01/2019 10:28 AM EDT) [facility] HIV AG/AB NONREACTIVE [facility] Comment: HIV-1 p24 Ag and/or HIV-1/HIV-2 Ab not detected. ?? A test result that is nonreactive does not exclude the possibility of exposure to or infection with HIV-1 and/or HIV-2. Nonreactive results in this assay for individuals with prior exposure to HIV-1 and/or HIV-2 may be due to antigen and antibody levels that are below the limit of detection of this assay. ?? [employer] Primary School Teacher Librarian HIV Ag/Ab Combo assay result and supplemental assay results should be interpreted in conjunction with the patient's clinical presentation, history and other laboratory results. ??If the results are inconsistent with clinical evidence, additional testing is suggested to confirm the result. 10/01/2019 10:2 8 AM EDT us Audrey Holman MD HISTORICAL/NON ORDERA BLE LABS Final Result [facility] [address] from Last 3 Months or Most Recently Relevant to Health Maintenance Insurance [facility] C3 Care Teams Golf Sales Associate Relationship Specialty Start Date End Date Audrey Smith MD [address] [place] [phone] PCP - General Family Medicine 11/20/17
--- OUTSIDE RECORDS SUMMARY | 2024-08-30 09:07 | XMS_ITS | Encounter Summary ---
Author Organization [employer] Address [address] [place] [address] 7 [place] [address] Care Team Providers Care Campus Interviews Intern Name Role Phone Audrey Smith MD Primary Care Provide r Encounter Details Date Type Department Care Team (Late st Contact Info) Description 10/10/2022 Orders Only [facility] [address] [place] [phone] Uzma Tyler LPN Social History Tobacco Use Types Packs/Day Years [...] Description 09/17/2024 10:00 AM EST Office Visit [facility] [address] [place] [phone] Audrey Smith MD [address] [place] [address] documented as of this encounter Visit Diagnoses Not on filedocumented in this encounter Care Teams Campus Interviews Intern Relationship Specialty Start Date End Date Audrey Smith MD [address] [place] [phone] PCP - General Family Medicine 11/20/17 documented as of this encounter
--- OUTSIDE RECORDS SUMMARY | 2024-08-30 09:07 | XMS_ITS | Encounter Summary ---
Author Organization [employer] Address [address] [place] [address] Care Team Providers Care Filling Station Attendant Name Role Phone Audrey Smith MD Primary Care Provide r Encounter Details Date Type Department Care Team (Late st Contact Info) Description 08/24/2024 9:47 AM EST Anesthesia Event [facility] Management [address] [place] [address] Jonatan Alvarado DO [address] [place] [address] Anesthesia Record Procedure Summary Procedure Name Responsible Anesthesiologist Anesthesia Start Time Anesthesia Stop Time INSERTION STIMULATOR SPINAL CORD TRIAL Jonatan Alvarado DO 08/24/24 0947 08/24/24 1115 Events Date Time Event Comment 08/24/2024 0817 0947 In Room 0947 An Start 0947 An Start Data The patient wa s reevaluated immediately before moderate or deep sedation use and before anesthesia induction. 0955 Anesthesia Ready 1001 Proc Start 1059 Proc Fin 1107 an stop data 1108 Out of Room 1115 Handoff to RN I completed my handoff to the receiving nurse during which we: 1. Identified the patient 2. Identified the responsible provider 3. Reviewed the pertinent medical history 4. Discussed the surgical course 5. Reviewed intra-op anesthesia management and issues during anesthesia 6. Set expectations for post-procedure period 7. Allowed opportunity for questions and acknowledgement of understanding. 1115 An Stop Meds Name Total midazolam 1 mg/mL 2 mg ondansetron 2 mg/mL 4 mg propofol (DIPRIVAN) injection 10 mg/mL 5 0 mg propofol (DIPRIVAN) infusion 10 mg/mL 26 3.13 mg lidocaine PF (XYLOCAINE-MPF) local injec tion 2% 100 mg ceFAZolin (ANCEF) IV syringe 2 g/20 mL 2 g lactated Ringer's infusion 400 mL * Agents Name O2 N2O Air * Blood No blood administrations on file. Lines, Drains, and Airways Type Details Placement Removal Wound Incision; 08/24/24; Sacrum; Spinal Cord Stimulator Insertion Site, ABD & Tagaderm applied 08/24/24 0000 by Thomas Valente RN Peripheral IV Placement Date: 11/12; Placement Time: 075; Existing LDA Placed by: Other hospital; Catheter Size: 20 G; Orientation: Posterior, Right; Location: Hand; Site Prep: Chlorhexidine; Local Anesth: None; Inserted by: KINGSLEY RN; Insertion Attempts: 1; Patient Tolerance: Tolerated well; Removal Date: 08/24/24; Removal Time: 1225 08/24/24 0753 by Audra Kennedy RN 08/24/24 1225 by Marcelle Laurent RN documented in this encounter Social History Tobacco Use Types Packs/Day Years [...] AM EST documented as of this encounter Progress Notes * Юлия Marmolejo CRNA - 08/24/2024 11:15 AM EST Patient: Owen Hurd Procedure Summary Date: 08/24/24 Room / Location: 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) Scheduled Providers: Rock Parsons MD; Jonatan Alvarado DO; Юлия Marmolejo CRNA Responsible Provider: Jonatan Alvarado DO Anesthesia Type: MAC ASA Status: 3 Anesthesia Plan: MAC Last Vitals: Vitals Value Taken Time BP 130/86 08/24/24 1112 Temp 36.8 ??C (98.2 ??F) 08/24/24 1112 Pulse 59 08/24/24 1112 Resp 15 08/24/24 1115 SpO2 99 % 08/24/24 1112 No data recorded Anesthesia Post Evaluation Patient location during evaluation: PACU Patient participation: complete - patient participated Level of consciousness: awake and alert Pain score: 0 Pain management: adequate Airway patency: patent Anesthetic complications: no Cardiovascular status: acceptable Respiratory status: acceptable Hydration status: acceptable Nausea: No Vomiting: No There were no known notable events for this encounter. * Jonatan Alvarado DO - 08/24/2024 8:03 AM EST Relevant Problems No relevant active problems Clinical information reviewed: Allergies Meds Med Hx Surg Hx Fam Hx Soc Hx Anesthesia Plan ASA 3 Anesthesia Plan: MAC Anesthesia Risks Discussed dental injury, allergic reaction, nausea, serious complications, pain, sore throat and corneal abrasion Plan Factors Patient is not a current smoker Induction method: N/A Anesthetic plan and risks discussed with patient. Anesthesia Plan discussed with attending. Anesthesia Evaluation Patient summary reviewed and Nursing notes reviewed No history of anesthetic complications Airway Mallampati: II Thyromental distance: < 3 finger breadths Neck ROM: full Dental - normal exam Pulmonary - normal exam breath sounds clear to auscultation (+) sleep apnea on CPAP (-) COPD, asthma ROS comment: Former smoker remote history Cardiovascular - normal exam Exercise tolerance: good (Can walk up two flights of stairs) (+) hypertension well controlled, CAD, CABG/stent (stents x3 placed in 2015, 2016, 2017) (-) past NH, angina, ROBERT[place] Rhythm: regular Rate: normal ROS comment: HLD CAD with stents, stopped on 08/17 Neuro/Psych (-) seizures, TIA, CVA Comments: Diabetic neuropathy bilateral hands and feet Back pain with radiculopathy to both legs GI/Hepatic/Renal (+) GERD well controlled (-) liver disease, renal disease Endo/Other (+) diabetes mellitus (a1c 7.1) type 2 poorly controlled (-) hypothyroidism Comments: Depression Abdominal (-) obese PONV RISK SCORE: 0 Vitals: 08/24/24 0724 BP: 109/82 Pulse: 57 Resp: 16 Temp: 36.2 ??C (97.2 ??F) SpO2: 100% Weight: 73.5 kg (162 lb) Height: 1.676 m (66 ) SpO2 Readings from Last 1 Encounters: 08/24/24 100% No results found for: WBC , RBC , HGB , HCT , PLT , MCV No Known Allergies STOP BANG: No data recorded NPO Status: Time of Last Liquid: 0530 Time of Last Solid: 2300 documented in this encounter Plan of Treatment Upcoming Encounters Date Type Department Care Team (Late st Contact Info) Description 11/01/2024 9:15 AM EDT Office Visit Orthopedic Surgery - [place] [id number] [phone] Aaron Graves, DPFauzia [address] [address] documented as of this encounter Visit Diagnoses Not on filedocumented in this encounter Administered Medications Inactive Administered Medications - up to 3 most recent administrations Medication Order MAR Action Action Date Dose Rate Site ceFAZolin (ANCEF) 2 gram/20 mL IV syringe intravenous, Administer over 3 Minutes, As needed, Starting on Fri08/24/24 at 0955, Anesthesia Intraprocedure Given 08/24/2024 9:55 AM EST 2 g lactated Ringer's infusion intravenous, Continuous PRN, Starting on Fri08/24/24 at 0947, Anesthesia Intraprocedure New Bag 08/24/2024 9:47 AM EST lidocaine (PF) (XYLOCAINE-MPF) 2 % injection injection, As needed, Starting on Fri08/24/24 at 0953, Anesthesia Intraprocedure Given 08/24/2024 9:53 AM EST 100 mg midazolam (VERSED) injection intravenous, As needed, Starting on Fri08/24/24 at 0952, Anesthesia Intraprocedure Given 08/24/2024 9:52 AM EST 2 mg ondansetron (PF) (ZOFRAN) injection intravenous, As needed, Starting on Fri08/24/24 at 1051, Anesthesia Intraprocedure Given 08/24/2024 10:51 AM EST 4 mg propofoL (DIPRIVAN) infusion 10 mg/mL intravenous, Continuous PRN, Starting on Fri08/24/24 at 0953, Anesthesia Intraprocedure Rate/Dose Change 08/24/2024 10:20 AM EST 80 mcg/kg/min 35.28 mL/hr Rate/Dose Change 08/24/2024 10:09 AM EST 100 mcg/kg/min 44 .1 mL/hr New Bag 08/24/2024 9:53 AM EST 120 mcg/kg/min 52.92 mL/ hr propofoL (DIPRIVAN) injection intravenous, As needed, Starting on Fri08/24/24 at 0953, Anesthesia Intraprocedure Given 08/24/2024 9:53 AM EST 50 mg documented in this encounter Care Teams Filling Station Attendant Relationship Specialty Start Date End Date Audrey Smith MD [address] [place] [phone] PCP - General 07/01/23 documented as of this encounter
--- OUTSIDE RECORDS SUMMARY | 2024-08-30 09:07 | XMS_ITS | Encounter Summary ---
Author Organization [employer] Address [address] [facility] [address] [place] [address] Care Team Providers Care Construction Laborer Name Role Phone Audrey Smith MD Primary Care Provide r Reason for Visit * Reason Comments Med Refill Encounter Details Date Type Department Care Team ([facility] st Contact Info) Description 08/01/[address] [facility]INE [address] [place] [address] Audrey Smith MD [address] [place] [address] Type 2 diabetes mellitus without complication, unspecified whether middle or intermediate school principal insulin use ([facility]) Social History Tobacco Use Types Packs/Day Years [...] Description 09/17/2024 10:00 AM EST Office Visit [facility] [address] [place] [address] Audrey Smith MD [address] [place] [address] documented as of this encounter Visit Diagnoses Diagnosis Type 2 diabetes mellitus without complication, unspecified whether chcf insulin use ([facility]) documented in this encounter Additional Health Concerns Assessment Noted Time PHQ-9 Depression Total Score: 0 05/21/20 24 9:38 AM EDT documented as of this encounter Care Teams Construction Laborer Relationship Specialty Start Date End Date Audrey Smith MD [address] [place] [address] PCP - General Family Medicine 11/20/17 documented as of this encounter
[2024-08-30 10:56] VITALS: BP 131/76; PULSE 60; RESP 16; TEMP 36.2; O2SAT 99
[2024-08-30 11:21] LABS: Glucose, Whole Blood 134 mg/dL (60-115)
[2024-08-30] MEDS: Lactated Ringers 1,000 ML 100 ML IVCONT (11:28)
--- NOTE | 2024-08-30 12:22 | MHC.SHP ---
Pre-Procedural Eval Section A - 24 Hr Update-Section A only Date of Service: 08/30/24 The patient is an INPATIENT: No The patient has been examined within 24 hours of the surgical procedure. The History & Physical has been completed within 30 days and I have reviewed it.: No Section B - Complete if H&P > 30 days Chief Complaint: Surveillance of colon polyps Relevant Family History (Specify if Yes): No Relevant Social History: Tobacco Use (former smoker) Present Medications: see Short Stay Collaborative assessment Medical History: Significant History (Abnormal LFTs Atherosclerotic cardiovascular disease Decreased libido Elevated AFP Essential hypertension Hypogonadism in male Other and unspecified hyperlipidemia Type 2 diabetes mellitus with unspecified complications) History of Previous Operations: Relevant previous surgery/procedure and date(s) (History of cardiac cath) Allergies: Allergies Allergy/AdvReac Type Severity Reaction Status Date / Time No Known Allergies Allergy Verified 05/25/24 08:24 [No Known Allergies*] Review of Systems Sugical H&P ROS: Negative: Constitution, Cardiovascular, Respiratory and Gastrointestinal Exam Surgical H&P Exam: Normal: Heart, Normal: Lungs, Normal: Extremities and Normal: Abdomen Plan Diagnosis/Plan: Unchanged I have reviewed the history and physical and performed a pertinent physical examination on my patient. No changes have occurred unless specified. Time Spent With Patient Time: Total time managing care of this patient today ____ minutes.
--- NOTE | 2024-08-30 12:59 | P.OPN-COLO_ITS ---
Colonoscopy Operative Note Operative Note Date of Service: 08/30/24 Narrative: COLONOSCOPY TILL CECUM WITH BIOPSIES Pre-op diagnosis: Surveillance for colon polyps. Post-op diagnosis:? Nodule AC, Diverticulosis, hemorrhoids Endoscopist:? Francesca Leyva MD Anesthesia:?MAC Consent: Indications for the procedure and potential complications of bleeding, perforation, reaction to medications and missed diagnosis were discussed with the patient and informed consent was obtained. Instrument: Olympus PCF H 190 L variable stiffness pediatric colonoscope Monitoring: Vital signs and clinical assessment, intermittent blood pressure monitoring, continuous EKG monitoring, Pulse oximetry and Carbon Dioxide monitoring were done throughout the procedure. Please see anesthesia flowsheet. Colon withdrawl time was 15 minutes. Procedure: The patient was placed in the left lateral decubitis position and pre-procedure medications were administered. After a digital rectal examination of the ano-rectum, the video colonoscope was inserted into the rectum and advanced through the colon to the cecum. The colonoscope was slowly withdrawn in a retrograde panoramic fashion and the colon mucosa was carefully examined including a retroflexed view of the rectum. Findings and interventions are described below. Procedure Difficulty: [without difficulty] [LLQ pressure was applied to intubate the cecum/ascending colon] Findings: Terminal Ileum: Not evaluated Cecum: Normal Ascending Colon: A 15 mm benign appearing nodule in the proximal AC with normal overlying mucosa - biopsied. Transverse Colon: Normal Descending Colon: Normal Sigmoid Colon: Moderate diverticulosis Rectum: Prominent folds in the rectum (benign on previous biopsies). Ano-rectum: Moderate internal hemorrhoids Colon preparation: Good after some irrigation. Henrietta Bowel Preparation Scale Right colon; 2 Transverse colon: 2 Left colon; 2 (0 = Unprepared colon segment with mucosa not seen due to solid stool that cannot be cleared. 1 = Portion of mucosa of the colon segment seen, but other areas of the colon segment not well seen due to staining, residual stool and/or opaque liquid. 2 = Minor amount of residual staining, small fragments of stool and/or opaque liquid, but mucosa of colon segment seen well. 3 = Entire mucosa of colon segment seen well with no residual staining, small fragments of stool or opaque liquid) Impression and Post Procedure Diagnosis: Colonoscopy Findings: No polyps were detected A 15 mm benign appearing nodule in the proximal AC with normal overlying mucosa - biopsied Moderate diverticulosis seen in the [sigmoid] [left] [entire] colon [Moderate] [small] [large] hemorrhoids on retroflexed exam. Plan: Pt has a FU appointment on [ ] with [Mary Kay Avalos NP], [LOWELL Zacarias], [Chikis Avelar], [Dr Leyva] Repeat Colonoscopy in 3-5 years if polyps are adenomatous and 10 year if polyps are hyperplastic. Above findings were reviewed with the patient and relevant handouts were given and the discharge area.
[2024-08-30 13:00] VITALS: BP 105/73; PULSE 62; RESP 15; TEMP 36.2; O2SAT 98
[2024-08-30 13:14] VITALS: BP 118/81; PULSE 60; RESP 16; O2SAT 100
== END 2024-08-30 15:46 | disposition home or self-care (01) ==
PROVIDERS: PCP Internal Medicine; Visit Provider Internal Medicine Gastroenterology
PROC: 0DJD8ZZ Inspection of Lower Intestinal Tract, Via Natural or Artificial Opening Endoscopic (ICD-10-PCS; CPT 45378; principal; 2024-08-30 12:00)
DX: Z12.11 Encounter for screening for malignant neoplasm of colon (principal); D12.2 Benign neoplasm of ascending colon; K57.30 Diverticulosis of large intestine without perforation or abscess without bleeding; K64.8 Other hemorrhoids; K58.0 Irritable bowel syndrome with diarrhea; Z86.0101 Personal history of adenomatous and serrated colon polyps; E11.9 Type 2 diabetes mellitus without complications; I10 Essential (primary) hypertension; E78.5 Hyperlipidemia, unspecified; E03.9 Hypothyroidism, unspecified; K21.9 Gastro-esophageal reflux disease without esophagitis; K75.81 Nonalcoholic steatohepatitis (NASH); G47.33 Obstructive sleep apnea (adult) (pediatric); Z99.89 Dependence on other enabling machines and devices; Z87.891 Personal history of nicotine dependence; Z79.82 Long term (current) use of aspirin; Z79.84 Long term (current) use of oral hypoglycemic drugs; Z79.02 Long term (current) use of antithrombotics/antiplatelets; Z79.899 Other long term (current) drug therapy
CPT/HCPCS: 45380; 82947; 88305; J2003; J2704

== ENCOUNTER → 2024-08-30 08:44 | Outpatient (BNV) | payer MEDICAID, SELFPAY | PROVIDERS: PCP Internal Medicine; Visit Provider Internal Medicine Gastroenterology | DX: Z12.11 Encounter for screening for malignant neoplasm of colon (principal); Z86.0100 Personal history of colon polyps, unspecified; K58.0 Irritable bowel syndrome with diarrhea; K57.30 Diverticulosis of large intestine without perforation or abscess without bleeding | CPT/HCPCS: 45380 ==

== ENCOUNTER 2024-09-02 10:35 | Outpatient (AMB) | payer MEDICAID, SELFPAY ==
--- NOTE | 2024-09-02 10:39 | MHC.OFFVIS ---
Intake Visit Reasons: Testopodel Injection Intake Note: Patient is present for TESTOPODEL INJESTION Urology Medication:TAMSULOSIN,OXYBUTYNIN,TESTOSTERONE Antibiotic Allergy:NONE Blood Thinner:NONE Supervisor Carding Required: No Allergies No Known Allergies [No Known Allergies*] Allergy (Verified 09/02/24 10:40) HPI Comments Details: Owen is Kuwaiti-speaking male. He is a patient of Dr. Holman. He is seen for the following urologic conditions - hypogonadism - bladder outlet obstruction Kuwaiti translation provided by qualified medical physics teacher Here for testosterone pellet insertion insertion Has had difficulties injecting the correct amount of testosterone due to needle phobia Also had highly variable hematocrit Previously failed T gel secondary to absorption issues Instructed to repeat lab work at 2 weeks and 10 weeks with follow-up testosterone pellets at 12 weeks He has had difficulty with injecting the correct amount and has to have his partner give the shots since he is scared of needles Given peak and trough with injections every 2 weeks and high hematocrit would recommend trying testopel Hypogonadism Longstanding Testosterone replacement started in [place] Continues with 1.0 cc 200 milligram/mL injection every 2 weeks - injection day Friday - laboratory day Friday - knows to do labs mid cycle Laboratories - 05/10 T 604, PSA 0.7, Hct 47.5, 11/09 T 1171 0.8 53, 05/11 T 1012 52, 11/10 T 388 H52, 05/11 T 890 P 0.8., 11/11 T 1200 Hct 53, 05/13 1061 295 51 Bladder outlet obstruction Initial weakness of stream and incomplete emptying Good response to tamsulosin with oxybutynin Controls nocturia [facility] Medical History (Updated 09/02/24 @ 11:12 by Eliezer Rivas MD) Hypogonadism Nocturnal hypoxemia SARTHAK (obstructive sleep apnea) Hypogonadism in male On beta catherine at home Hypothyroid IBS (irritable bowel syndrome) BPH (benign prostatic hyperplasia) Anxiety Allergic rhinitis COLON (nonalcoholic steatohepatitis) Elevated AFP Decreased libido Type 2 diabetes mellitus with unspecified complications Other and unspecified hyperlipidemia Essential hypertension Atherosclerotic cardiovascular disease Hypogonadism in male Surgical History History of esophagogastroduodenoscopy (EGD) Hx of colonoscopy History of cardiac cath History of cardiac cath Family History Father Cardiac disease Mother Cardiac disease Social History Are you a primary healthcare consultant to a significant other at home: No Do you presently have visiting nurse or other home services: No Alcohol intake: former Patient Tobacco Use Status: Former Tobacco user Tobacco use type: Cigarette Office Procedures AMB Testopel Details: Testopel Placement Pre Op Diagnosis - Low testosterone Post Op Diagnosis - Low Testosterone Procedure: Testopel Insertion Testopel was prepared for insertion. Five Testopel pellets were removed from the individual glass containers and placed in a sterile container. The patient was placed in left lateral position with left side down and right side up. The area over the right hip was cleaned with Betadine. Lidocaine 2% was injected first as a skin wheal and then into the subcutaneous tissue directed in a fashion down towards the femur in the subcutaneous space to perform hydrodissection. The purpose of the injection is to numb the length of the trocar track. A 15 Blade scapel was used to make a puncture incision into the subcutaneous space. Insert trocar with sharp-ended stylet. Enter downward at a 45? angle and into the subcutaneous fat layer. The needle was flatten out and advanced leaving the pellet loading area exposed. 6 pellets were inserted using Adson forceps into the loading trocar. The blunt stylet was used to advance pellets into the tract while withdrawing the trocar. The trocar insertion site was closed with a single interrupted suture and a dressing placed. CPT 80467 J3490 Subcutaneous Hormone Pellet Insertion: 56493 Subq Hormone Pellet Insertion Office Meds Testopel 75 mg implant pellet Performing Provider: Eliezer Rivas MD Performing Location: [facility] Administered by: Kumar Hernández LPN on 09/02/24 10:51 Dose Route Admin Location Dispensed Lot Number Expiration Date [facility] Air Traffic Systems Technician 75 mg implant 6 ea lidocaine HCl 20 mg/mL (2 %) injection solution Performing Provider: Eliezer Rivas MD Performing Location: [facility] Administered by: Kumar Hernández LPN on 09/02/24 10:51 Dose Route Admin Location Dispensed Lot Number Expiration Date [facility] Air Traffic Systems Technician 10 mL subcut 10 mL Assessment & Plan Assessment & Plan (1) Decreased libido: Code(s): R68.82 - Decreased libido Category: Medical (2) Hypogonadism: Comment: Testosterone every 2 weeks Category: Medical (3) High hematocrit: Code(s): R71.8 - Other abnormality of red blood cells Category: Medical Plan Lab work 2 weeks, 10 weeks Repeat test pale placement 12 weeks Orders: Orders Testosterone, Total 10 Weeks E29.1 - Testicular hypofunction AMB Testosterone Pellet Implant Today E29.1 - Testicular hypofunction Testosterone, Total 2 Weeks E29.1 - Testicular hypofunction Patient Instructions: This note is constructed using voice recognition software. While every effort has been made to ensure accuracy sales representative printing supplies errors may have been included. Imaging studies, laboratory and physical exam results were discussed and reviewed in detail. No major barriers to patient understanding were identified. An opportunity to ask questions regarding the treatment plan was provided. All questions were answered. The patient expressed understanding and agreement with the above treatment plan. The patient is aware they should contact our office by phone for worsening of their current condition or the appearance of new urologic symptoms. Compliance is encouraged with any medications and followup testing that is ordered. It is a privilege to participate in the urologic care of your patient. If you have any questions or concerns regarding treatment for the above conditions, or other urologic issues, please do not hesitate to contact me. The office telephone contact is [phone]. Sincerely, Dr Eliezer Rivas MD, [facility] - Urology Compassionate Specialist Care for the Genitourinary System Coding Level of Care Code Procedure Only Diagnoses Decreased libido R68.82 Hypogonadism High hematocrit R71.8
--- OUTSIDE RECORDS SUMMARY | 2024-09-02 11:17 | XMS_ITS | Encounter Summary ---
Author Organization [employer] Address [address] [place] [address] Care Team Providers Care Steam Generating Powerplant Mechanic Name Role Phone Audrey Smith MD Primary Care Provide r Encounter Details Date Type Department Care Team (Latest Contact Info) Description 08/24/2024 6:05 AM EST - 08/24/2024 11:59 PM EST Hospital Encounter [facility] Xray [address] [place] [address] Pain Discharge Disposition: Home or [...] Care Team (Late st Contact Info) Description 09/14/2024 3:15 PM EST Office Visit Neurosurgery [place] [facility] 175 [facility] [address] [place] [phone] Cara Davenport MD [address] [place] [address] 11/01/2024 9:15 AM EDT Office Visit Orthopedic Surgery [facility] [address] [phone] Aaron Graves DPM [address] [address] documented as of this encounter Procedures Procedure [...] Signed Date: 08/24/2024 13:23 ET Workstation ID: [id number] Transcribed By: Self Edit Transcribed Date: 08/24/2024 [...] Signed Date: 08/24/2024 13:23 ET Workstation ID: [id number] Transcribed By: Self Edit Transcribed Date: 08/24/2024 13:23 ET us Rock Parsons MD IM FLUOROSCOPY PROCEDURES Fin al Result documented in this encounter Visit Diagnoses Diagnosis Pain Generalized pain documented in this encounter Care Teams Steam Generating Powerplant Mechanic Relationship Specialty Start Date End Date Audrey Smith MD [address] [phone] PCP - General 07/01/23 documented as of this encounter
--- OUTSIDE RECORDS SUMMARY | 2024-09-02 11:17 | XMS_ITS | Encounter Summary ---
Author Organization [employer] Address [address] [place] [address] 7[address] [place] [address] Care Team Providers Care V Belt Mold Assembler And Curer Name Role Phone Audrey Smith MD Primary Care Provide r Encounter Details Date Type Department Care Team (Late st Contact Info) Description 03/27/2023 Orders Only [facility] MED[facility]INE [address] [place] [address] ProviderNatasha MD Social History Tobacco Use Types [...] 10:00 AM EST Office Visit [facility] [address] [place] [address] Audrey Smith MD [address] [place] [address] documented as of this encounter Procedures Procedure [...] EDT Narrative 03/30/2023 11:21 AM EDT ? [facility] ?[address] ?[place] [address] ?XRay Report ? Signed ? Patient: Owen Montano ?MR#: ?? [id number] ? : 1970 ?Acct:[id number] ? Age/Sex: 52 / M ?ADM Date: 03/30/23 ? Loc: HO.ED ? Attending Dr: ? Ordering Physician: Ada Mcintosh NP ?? Date of Service: 03/30/23 ?? Procedure(s): XR hip RT w PEL1V ?? Accession Number(s): [id number] ? cc: Audrey Smith MD; Ada Mcintosh [...] 1117 ? DD/ 1046 ? TD/TT: ? Furniture Refinisher: ? Procedure Note Leigh Breen - 03/30/[address] [address] XRay Report Signed Patient: Livier Montano#: [id number] : 1970Acct:[id number] Age/Sex: 52 / MADM Date: 03/30/23 Loc: HO.ED Attending Dr: Ordering Physician: Ada Mcintosh NP Date of Service: 03/30/23 Procedure(s): XR hip RT w PEL1V Accession Number(s): [id number] cc: Audrey Smith MD; Ada Mcintosh NP [...] in OV> 03/30/23 1117 DD/ 1046 TD/TT: Furniture Refinisher: [facility] External Provider IMG XR PROCEDURES Final Result * Hm Colonoscopy (05/22/2021) Historical Provider HEALTH MAINTENANCE Final Result documented in this encounter Visit Diagnoses Not on filedocumented in this encounter Care Teams V Belt Mold Assembler And Curer Relationship Specialty Start Date End Date Audrey Smith MD [address] [place] [phone] PCP - General Family Medicine 11/20/17 documented as of this encounter
--- OUTSIDE RECORDS SUMMARY | 2024-09-02 11:17 | XMS_ITS | Encounter Summary ---
Author Organization [employer] Address [address] [place] [address] Care Team Providers Care Statistical Methods Teacher Name Role Phone Audrey Smith MD Primary Care Provide r Encounter Details Date Type Department Care Team (Late st Contact Info) Description 08/24/2024 9:47 AM EST Anesthesia Event [facility] Pain Management [address] [place] [address] Jonatan Alvarado DO [address] [place] [address] Anesthesia Record Procedure Summary Procedure Name Responsible [...] Procedure Summary Date: 08/24/24 Room / Location: [facility] Pain Management Anesthesia Start: 946 Anesthesia Stop: [...] placed in 2015, 2016, 2017) (-) past MS, angina, ROBERTSON Rhythm: regular Rate: normal ROS [...] 09/14/2024 3:15 PM EST Office Visit Neurosurgery [place] [facility] 175 [facility] [address] [place] [phone] Cara Davenport MD 175 [place] [address] 11/01/2024 9:15 AM EDT Office Visit Orthopedic Surgery [facility] 250 175 [facility] [address] [place] [phone] Aaron Graves DPM [address] [phone] documented as of this encounter Visit Diagnoses [...] mg documented in this encounter Care Teams Statistical Methods Teacher Relationship Specialty Start Date End Date Audrey Smith MD [address] [place] [phone] PCP - General 07/01/23 documented as of this encounter
--- OUTSIDE RECORDS SUMMARY | 2024-09-02 11:17 | XMS_ITS | Encounter Summary ---
Author Organization [employer] Address [address] [place] [address] [address] [address] Care Team Providers Care Petroleum Engineering Teacher Name Role Phone Audrey Smith MD Primary Care Provide r Reason for Visit * Reason Comments Med Refill Encounter Details Date Type Department Care Team (Late Contact Info) Description 03/09/2023 Refill [facility] MED & PEDS [address] [place], [place] [phone] Alice Huber MD [address] [place] [address] [phone] Type 2 diabetes mellitus without complication, unspecified whether fpc insulin use (CMS/HCC) Social History Tobacco Use [...] Description 09/17/2024 10:00 AM EST Office Visit [facility] MEDICINE [address] [place] [phone] Audrey Smith MD [address] [place], [place] [phone] documented as of this encounter Visit Diagnoses Diagnosis Type 2 diabetes mellitus without complication, unspecified whether word processing supervisor insulin use (CMS/HCC) documented in this encounter Care Teams Petroleum Engineering Teacher Relationship Specialty Start Date End Date Audrey Smith MD [address] [place] [address] PCP - General Family Medicine 11/20/17 documented as of this encounter
--- OUTSIDE RECORDS SUMMARY | 2024-09-02 11:18 | XMS_ITS | Clinical Summary ---
Author Organization 175 [facility] Address 175 [place] [address] Phone Care Team Providers Care Call Center Nurse Name Role Phone Audrey Smith MD Primary [...] 08/24/2024 9:47 AM EST Anesthesia Event [facility] Pain Management [address] [place] [address] Jonatan Alvarado DO 08/24/2024 7:08 AM EST - 08/24/2024 11:59 PM EST Hospital Encounter [facility] Pain Management [address] [place] [phone] Rock Parsons MD Walsh, Michael, DO Weiss, Ashley, CRNA Type 2 diabetes mellitus with diabetic polyneuropathy, unspecified whether watermelon harvesting supervisor insulin use ([facility]) [E11.42] (Primary Dx); Type 2 diabetes mellitus with diabetic polyneuropathy ([facility]); Peripheral polyneuropathy [G62.9] Discharge Disposition: Home or Self Care 08/24/2024 6:05 AM EST - 08/24/2024 11:59 PM EST Hospital Encounter [facility] Xray [address] [place] [phone] Pain Discharge Disposition: Home or Self Care 06/30/2024 9:15 AM EST Office Visit Orthopedic Surgery [facility] 250 175 [facility] 250 [place] [phone] Graves, Christopher M, DPM Diabetic mononeuropathy simplex [...] Comments Diabetes mellitus (CMS/HCC) DX:D iabetes mellitus ([facility]) Hypertension DX:Hypertension Disease of thyroid gland DX:Dise [...] 09/14/2024 3:15 PM EST Office Visit Neurosurgery [place] [address] [place] [phone] Cara Davenport MD 175 [place] [address] 11/01/2024 9:15 AM EDT Office Visit Orthopedic Surgery [facility] 250 175 [facility] 250 [place] [phone] Aaron Graves DPM 175 [facility] 250 [place] [address] Health Maintenance Due Date Last Done Comments Diabetes: Annual Foot Exam 11/07/1979 Diabetes: Annual Retina Eye Exam 11/07/1979 Colorectal Cancer Screening: Colonoscopy 08/15/2023 HIV Screening 08/15/2023 Hepatitis C Screening 08/15/2023 Social Influencers of Health Screening 08/15/2023 Diabetes: Annual Urine Albumin-Creatinine Ratio (uACR) 04/29/2024 Diabetes: Blood Sugar Control Test (HGBA1C) 11/18/2024 05/21/2024 Depression Screening 05/21/2025 05/21/2024 Diabetes: Annual GFR (Glomerular Filtration Rate) 06/02/2025 06/02/2024 Hypertension/CHF/CAD Annual BMP Blood Test 06/02/2025 06/02/2024 DTaP,Tdap,and Td Vaccines (2 - Td or Tdap) 03/16/2028 03/16/2018 Cholesterol Screening (Lipid Panel) 06/02/2029 06/02/2024 Hepatitis [...] this topic Medical Devices Implanted Type Area Substation Operator Device Identifier Shelf Expiration Date Model / Serial / Lot Lead Linear Trial St - [id number] - [id number] Implanted:Qty: 1 on 08/24/2024 by Rock Parsons MD at [facility] Neurostim Right: Back [employer] 03/23/2026 [id number] / [id number] / [id number] Lead Linear Trial St - [id number] - [id number] Implanted:Qty: 1 on 08/24/2024 by Rock Parsons MD at [facility] Neurostim Left: Back [employer] 03/15/2026 [id number] / [id number] / [id number] Procedures Procedure Name Priority Date/Time Associated Diagnosis [...] Signed Date: 08/24/2024 13:23 ET Workstation ID: [id number] Transcribed By: Self Edit Transcribed Date: 08/24/2024 [...] Signed Date: 08/24/2024 13:23 ET Workstation ID: [id number] Transcribed By: Self Edit Transcribed Date: 08/24/2024 13:23 ET Rock Parsons MD IMG FLUOROSCOPY PROCEDURES Fin al Result * (ABNORMAL) POCT Glucose, blood (08/24/2024 7:25 AM EST) Glucose POCT 145(H) 70 - 100 mg/dL 08/24/2024 7:26 AM EST [facility] Blood Capillary blood specimen / Unknown 08/24/2024 7:25 AM EST 08/24/2024 7:27 AM EST Юлия Marmolejo CRNA LAB POINT OF CARE TE ST DOCKED DEVICE UNSOLICITED RESULTS Final Result [facility] [address] [place] [address], [place] [phone] from Last 3 Months Insurance MEDICAID - [place] Care Teams Call Center Nurse Relationship Specialty Start Date End Date Audrey Smith MD [address] [place] [phone] PCP - General 07/01/23
--- OUTSIDE RECORDS SUMMARY | 2024-09-02 11:18 | XMS_ITS | Encounter Summary ---
Author Organization [employer] Address [address] [place] [address] Care Team Providers Care Shearing Supervisor Name Role Phone Audrey Smith MD Primary Care Provide r Encounter Details Date Type Department Care Team ([facility] st Contact Info) Description 08/30/2024 Orders Only GENERIC EXTERNAL DATA DEPARTMENT Provider, [...] Description 09/17/2024 10:00 AM EST Office Visit [facility] MEDICINE [address] [place], [place] [phone] Audrey Smith MD 230 [place], [place] [phone] documented as of this encounter Procedures Procedure Name Priority Date/Time Associated Diagnosis Comments HEMATOXYLIN AND EOSIN STAIN Routine 08/30/2024 12:43 PM EST GLUCOSE, WHOLE BLOOD Routine 08/30/2024 11:15 AM EST documented in this encounter Results * Hematoxylin and Eosin Stain (08/30/2024 12:43 PM EST) 08/30/2024 12:4 3 PM EST 08/30/2024 1:14 PM EST [facility] - 08/31/2024 3:23 PM EST ----- ------- Name: Owen Montano ?Age/Sex: 53/M ? : 1970 Unit#: [id number] ?? Attend Dr: Francesca Leyva MD ?Re08/30/24 ?Status: DEP SDC ? Location: HO.SSS ?Disch: ? ----- ------- SPEC : [id number] ?RECD: 08/30/24-1313 ? STATUS: ??SOUT ? REQ NUM: [id number] ? JUAN FRANCISCO: 08/30/24-1243 ? SUBM DR: Francesca Leyva MD ? ENTERED: ??08/30/24-5 ?SP TYPE: Surgical ? OTHR DR: Audrey Smith MD ? ORDERED: ??HE Stain/3, Gross Micro L4 ? Diagnosis ?? Colon, ascending nodule, biopsy: ??Colonic mucosa with a prominent lymphoid aggregate; ?? negative for dysplasia or adipose tissue. ?Clinical History Pre-Op Dx: ??Irritable bowel syndrome with diarrhea Post-Op Dx: Diverticulosis; hemorrhoids ?Microscopic Description Microscopic sections reviewed. ? Material Received ?? Nodule ascending colon; r/o lipoma ? Gross Description Received in formalin labeled ?nodule ascending colon; R/0 lipoma? are 2 fragments of park- white soft tissue measuring 0.1 and 0.4 cm in greatest dimension which are wrapped in lens paper and entirely submitted for microscopic examination, 2 pieces in cassette [facility] Copies To: ?? Audrey Smith MD ?? [facility] ?? [address] ?? [place] [address] ?? [phone] ?? Francesca Leyva MD ?? [facility] ?? [address] ?? [place] [address] ?? [phone] ----- ------- Signed (signature on file) Samantha Olson MD 08/31/24 1523 ? ----- ------- ? END OF REPORT ? us Generic External Data Provider LAB BLOOD ORDERAB LES Final Result Performing Organization Address City/[facility] Co de Phone Number [facility] [address] [place] [address] [phone] * (ABNORMAL) Glucose, Whole Blood (08/30/2024 11:15 AM EST) Glucose, Whole Blood 134(H) 60 - 115 mg/dL [facility] Comment:METER #: [id number] 08/30/2024 11:1 5 AM EST 08/30/2024 11:21 AM EST us Generic External Data Provider LAB BLOOD ORDERAB LES Final Result Performing Organization Address [facility] Co de Phone Number [facility] [address] [place] [address] [phone] documented in this encounter Visit Diagnoses Not on filedocumented in this encounter Additional Health Concerns Assessment Noted Time PHQ-9 Depression Total Score: 0 05/21/20 24 9:38 AM EDT documented as of this encounter Care Teams Shearing Supervisor Relationship Specialty Start Date End Date Audrey Smith MD [address] [place] [phone] PCP - General Family Medicine 11/20/17 documented as of this encounter
--- OUTSIDE RECORDS SUMMARY | 2024-09-02 11:18 | XMS_ITS | Encounter Summary ---
Author Organization [employer] Address [address] [place] [address] [address] [place] [address] Care Team Providers Care Foster Care Social Worker Name Role Phone Audrey Smith MD Primary Care Provide r Encounter Details Date Type Department Care Team (Late st Contact Info) Description 10/10/2022 Orders Only [facility] MEDICINE [address] [place] [phone] Uzma Tyler LPN Social History Tobacco Use [...] Description 09/17/2024 10:00 AM EST Office Visit [facility] MEDICINE [address] [place] [phone] Audrey Smith MD [address] [place] [address] documented as of this encounter Visit Diagnoses Not on filedocumented in this encounter Care Teams Foster Care Social Worker Relationship Specialty Start Date End Date Audrey Smith MD [address] [place] [phone] PCP - General Family Medicine 11/20/17 documented as of this encounter
--- OUTSIDE RECORDS SUMMARY | 2024-09-02 11:18 | XMS_ITS | Encounter Summary ---
Author Organization [employer] Address [address] [facility] [address] [place] [address] Care Team Providers Care Drill Sharpener Operator Name Role Phone Audrey Smith MD Primary Care Provide r Reason for Visit * Reason Onset Date Comments Med Refill 07/26/2024 Encounter Details Date Type Department Care Team ([facility] st Contact Info) Description 07/26/2024 Telephone [facility] MEDICINE [address] [place] [address] Audrey Smith MD [address] [place] [address] Med Refill Social History Tobacco Use Types [...] 4:18 PM EST TC placed to patient [phone] via [employer] ([employer] #[id number]) in regards to below message. Patient advised [...] Description 09/17/2024 10:00 AM EST Office Visit [address] [address] Audrey Smith MD [address] [place] [address] documented as of this encounter Visit Diagnoses Not on filedocumented in this encounter Additional Health Concerns Assessment Noted Time PHQ-9 Depression Total Score: 0 05/21/20 24 9:38 AM EDT documented as of this encounter Care Teams Drill Sharpener Operator Relationship Specialty Start Date End Date Audrey Smith MD [address] [place] [address] PCP - General Family Medicine 11/20/17 documented as of this encounter
--- OUTSIDE RECORDS SUMMARY | 2024-09-02 11:18 | XMS_ITS | Encounter Summary ---
Author Organization [employer] Address [address] [place] [address] [address] [address] Care Team Providers Care Clinical Nurse Name Role Phone Audrey Smith MD Primary Care Provide r Reason for Visit * Reason Comments Med Refill Encounter Details Date Type Department Care Team (Late Contact Info) Description 01/10/2023 Refill [facility] MEDICINE [address] [place] [phone] Name, MD Sameer [address] [place] [address] [phone] Social History Tobacco Use Types Packs/Day Years [...] Description 09/17/2024 10:00 AM EST Office Visit [facility] MED[facility]INE [address] [place] [phone] Audrey Smith MD [address] [place] [address] [phone] documented as of this encounter Visit Diagnoses Not on filedocumented in this encounter Care Teams Clinical Nurse Relationship Specialty Start Date End Date Audrey Smith MD [address] [place] [address] PCP - General Family Medicine 11/20/17 documented as of this encounter
--- OUTSIDE RECORDS SUMMARY | 2024-09-02 11:18 | XMS_ITS | Continuity of Care Document ---
Author Organization [facility] [employer] [facility], [id number] Address [address] [address] Care Team Providers Care Security Alarm Installer Name Role Phone ADRI REDDY Referring Provider [phone] MAINE MORELAND Tour Consultant FREDY MORENO Psychiatrist Assessment No assessment recorded. Plan of Treatment Reminders Order Date Submit Date Provider Last Modified By Organization Details Last Modified Time Details Appointments None record ed. Lab None record ed. Referral None record ed. Procedures None record ed. Surgeries None record ed. Imaging None record ed. Medication Orders None record ed. Patient TargetsNo targets recorded. Patient InstructionsNo instructions recorded. Reason for Referral None Reported. Results Created Date Observation Date Name Description Value Unit Range Abnormal Flag Note LastModifiedBy Organization Detail LastModifiedTime 08/24/19 25 08/24/2024 proce flora No observ ation record ed. [id number] [facility] [address] [place], [address], 08/25/2024 09:45:35 08/24/1908/24/2024 xr fluor o up to 1 hour See Note [facility] , a member of [employer] [facility] Name: OWEN PORTILLO GARRETT MCKEON LILIA Date of : 1970 Reason for Exam: pain Exam Date: 2024 [id number] EST Report Status : Final Orderi ng Provid er: ROCK BALDERSA PCP: SUNNY Browne gs: Fluoro scopy was provid ed for Dr. Balderas during a pain manage ment proced ure. No radiol ogist was in attend ance. Cumula tive Dose: 20.61 mGy IMPRES [place]: Impres [place]: Fluoro scopy provid ed by the Depart ment of Radiol ogy during a pain manage ment christofer TANNER ------ -- FINAL REPORT ------ -- Dictat ed By: Linda Kaba Dictat ed Date: 2024 13:23 ET Assign ed Physic kristan: Linda Kaba Review ed and Electr onical ly Signed By: Linda Kaba Signed Date: 2024 13:23 ET Workst ation ID: [id number] Transc ribed By: Self Edit Transc ribed Date: 2024 13:23 ET [id number] [address], [address], 08/25/2024 09:45:35 Result Notes None recorded. Problems Name Problem SNOMED Code Status Onset Date Resolution Date Notes Provider Name and Address Organization Details Recorded Time Diabetic peripheral neuropathy [id number] Active 025 Rock Balderas MD [facility] 5 11:30:01 Problem Notes None recorded. Medical Equipment None Reported. Allergies Allergen ID Allergen Name Allergen Category Reaction Reaction Severity Criticality Documentation Date Start Date Code Code System Note Provider Name and Address Organization Details Recorded Time 11466 No Allergy Informati on Available Not available Not available Not available Not available 08/31/2024 [id number] UNK Comme nt: shyanne e: Rere tobar; alma rosa e: Raymon marroquin; ; Not Available [facility] 5 16:49:03 Medications Name Sig Start Date Stop Date Status Note LastModified by Organization Details LastModified Time medbox status USE DIRECTED active Not Available Not Available No t Available loperamide 2 mg capsule TAKE 1 CAPSULE BY MOUTH TWICE DAILY NEEDED FOR DIARRHEA active Not Available Not Available No t Available metoprolol succinate ER 50 mg tablet,exten ded release 24 hr TAKE 1 TABLET BY MOUTH EVERYDAY AT NOON active Not Available Not Available No t Available risperidone 4 mg tablet TAKE 1 TABLET BY MOUTH TWICE DAILY AT NOON AND BEDTIME active Not Available Not Available No t Available famotidine 40 mg tablet TAKE 1 TABLET BY MOUTH TWICE DAILY AT NOON AND IN THE EVENING active Not Available Not Available Not Available gabapentin 400 mg capsule TAKE 1 CAPSULE BY MOUTH AT NOON, EVENING, AND BEDTIME active Not Available Not Available Not Available sertraline 100 mg tablet TAKE 2 TABLETS BY MOUTH ONCE DAILY AT NOON active Not Available Not Available No t Available hydroxyzine HCl 50 mg tablet TAKE 1 TABLET BY MOUTH AT BEDTIME NEEDED FOR SLEEP / FOR ANXIETY active Not Available Not Available No t Available clopidogrel 75 mg tablet TAKE 1 TABLET BY MOUTH EVERYDAY AT NOON active Not Available Not Available No t Available aspirin 81 mg tablet,delay ed release TAKE 1 TABLET BY MOUTH EVERYDAY AT NOON active Not Available Not Available No t Available levothyroxin e 25 mcg tablet TAKE 1 TABLET BY MOUTH EVERY MORNING BEFORE BREAKFAST active Not Available Not Available No t Available BD Regular Bevel [place] 18 gauge x 1 USE WITH testosteron e active Not Available Not Available No t Available methocarbamo l 750 mg tablet TAKE 1 TABLET BY MOUTH EVERY TWELVE HOURS active Not Available Not Available No t Available tamsulosin 0.4 mg capsule TAKE 1 CAPSULE BY MOUTH AT BEDTIME active Not Available Not Available No t Available dicyclomine 20 mg tablet TAKE 1 TABLET BY MOUTH FOUR TIMES DAILY NEEDED FOR CRAMPS active Not Available Not Available N ot Available lorazepam 2 mg tablet TAKE 1 TABLET BY MOUTH AT BEDTIME active Not Available Not Available No t Available glipizide ER 2.5 mg tablet, extended release 24 hr TAKE 1 TABLET BY MOUTH EVERYDAY AT NOON active Not Available Not Available No t Available metformin 1,000 mg tablet TAKE 1 TABLET BY MOUTH TWICE DAILY AT NOON AND IN THE EVENING active Not Available Not Available Not Available lidocaine 5 % topical patch APPLY 1 PATCH TOPICALLY TO SKIN, LEAVE ON FOR 12 HOURS AND OFF FOR 12 HOURS DIRECTED active Not Available Not Available No t Available promethazine 25 mg tablet TAKE 1 TABLET BY MOUTH EVERY TWELVE HOURS NEEDED FOR NAUSEA AND VOMITING active Not Available Not Available No t Available nitroglyceri n 0.[address] 1 TABLET UNDER THE TONGUE NEEDED FOR CHEST PAIN - MAY REPEAT IN 5 MINUTES TWICE. IF NO RELIEF CALL 911 OR GO TO EMERGENCY ROOM. active Not Available Not Available No t Available oxybutynin chloride ER 5 mg tablet,exten ded release 24 hr TAKE 1 TABLET BY MOUTH EVERYDAY AT NOON active Not Available Not Available No t Available bisacodyl 5 mg tablet,delay ed release TAKE 2 TABLETS BY MOUTH AT BEDTIME FOR 2 DAYS active Not Available Not Available No t Available testosterone cypionate 200 mg/mL intramuscula r oil INJECT 0.7 ML (140 MG) INTRAMUSCUL [place] EVERY 2 WEEKS active Not Available Not Available No t Available ibuprofen 600 mg tablet TAKE 1 TABLET BY MOUTH THREE TIMES DAILY WITH FOOD active Not Available Not Available No t Available imipramine 10 mg tablet TAKE 1 TABLET BY MOUTH AT BEDTIME active Not Available Not Available No t Available sertraline 50 mg tablet TAKE 1 TABLET BY MOUTH EVERYDAY AT NOON active Not Available Not Available No t Available Vitamin D3 25 mcg (1,000 unit) capsule TAKE 1 CAPSULE BY MOUTH EVERYDAY AT NOON active Not Available Not Available No t Available cyclobenzapr ine 5 mg tablet TAKE 1 TABLET BY MOUTH THREE TIMES DAILY active Not Available Not Available Not Available rosuvastatin 20 mg tablet TAKE 1 TABLET BY MOUTH AT BEDTIME active Not Available Not Available No t Available peg 3350-electro lytes 236 gram-22.74 gram-6.74 gram-5.86 gram solution MIX BOTTLE DIRECTED AND TAKE 240 ML BY MOUTH EVERY 10 MINUTES DO NOT EXCEED 2000 ML active Not Available Not Available No t Available BD Luer-Judy Syringe 1 mL USE DIRECTED active Not Available Not Available No t Available FreeStyle Lite Strips USE DIRECTED TO TEST BLOOD SUGAR TWICE DAILY active Not Available Not Available No t Available FreeStyle [place] Lite kit USE TWICE DAILY active Not Available Not Available No t Available diclofenac 1 % topical gel APPLY 4 GRAMS TOPICALLY TO AFFECTED AREA(S) TWICE DAILY active Not Available Not Available Not Available Allergy Relief (fexofenadin e) 180 mg tablet TAKE 1 TABLET BY MOUTH EVERYDAY AT NOON active Not Available Not Available No t Available TRUEplus Lancets 33 gauge TEST BLOOD SUGAR TWICE DAILY active Not Available Not Available No t Available Invokana 100 mg tablet TAKE 1 TABLET BY MOUTH EVERYDAY AT NOON BEFORE MEALS active Not Available Not Available No t Available Praluent Pen 75 mg/mL subcutaneous pen injector INJECT 75 MG SUBCUTANEOU SLY EVERY 2 WEEKS active Not Available Not Available No t Available Easy Touch Hypodermic Needle 22 gauge x 1 1/2 USE FOR INJECT testosteron e active Not Available Not Available No t Available Procto-Med HC 2.5 % topical cream perineal applicator INSERT 1 APPLICATORF UL RECTALLY TWICE DAILY NEEDED FOR PAIN active Not Available Not Available No t Available Reguloid (psyllium husk) 0.4 gram capsule TAKE 1 CAPSULE BY MOUTH TWICE DAILY active Not Available Not Available No t Available Zenpep 5,000 unit-17,000 unit-24,000 unit capsule,roopa yed release TAKE 1 CAPSULE BY MOUTH FOUR TIMES DAILY active Not Available Not Available Not Available Vitals None Recorded Social History None recorded. Functional Status None recorded. Mental Status None recorded. Family History Nothing Reported. Medical History No medical history recorded. Past Encounters Encounter ID Performer Location Encounter Start Date Encounter Closed Date Diagnosis/Indication Diagnosis SNOMED-CT Code Diagnosis ICD10 Code Diagnosis Note [id number] Rock Balderas MD [id number] [address] [address] [place] [address] 08/31/2024 09:37:10 08/31/2024 12:26:48 Diabetic peripheral neuropathy [id number] E11.40 -patient with long-stand ing history of bilateral foot pain, likely 2/2 diabetes and HTN induced neuropathy ; patient reports that his A1c is relatively well controlled , however that there is likely room for some improvemen t -patient did quite well with SCS trial--rep orts 75% improvemen t in his pain levels for his foot neuropathi c pain, leads removed today, advised to restart plavix tomorrow -his current psychiatri st (Dr. Moreno-- [facility] [place]--[phone] ) -will coordinate with Dr. Davenport for permanent SCS implant; will need to hold plavix prior to this procedure as well (Dr. Gary patel--[facility] ) -20 minutes was used for chart review, interviewi ng/examini ng, and counseling the patient during today's visit, and patient denies having any other further questions/ concerns Health Concerns Section Related Observation LastModified by Organization Detai ls LastModified Time None Recorded Concern Status LastModified by Organization Details LastModified Time None Recorded Payers Encounter Date Sequence Insurance Name Policy Number Policy Price Covered Member ID Price Member ID Guarantor Name 08/31/2024 1 [place] [facility] Owen Hurd [id number] Owen Hurd Notes Date Note Type Note Provider Name and Address Organization Details Recorded Time 08/31/2024 text/html Owen Hurd is a pleasant 53 y.o. year old male, who has a past medical history of Diabetes mellitus (HCC), Disease of thyroid gland, Hypercholesteremia , Hypertension, and Sleep apnea. CAD s/p stentx3, who presents with moderate bilateral foot/ankle pain for several years. he denies any inciting events. Of note, patient is on PLAVIX (sees [facility]).? ? ?he reports that performing activities of daily living is somewhat difficult.? ? ?Current pain medications: gabapentin 400mg TID? ? ?Previous Medications and doses tried/effect: lidocaine patch, voltaren gel? ? ?Previous Nerve Block or Injection: right-sided hip injections? ? ?I personally reviewed prior radiological services. I also obtained relevant old records and reviewed lab data.? ? ?Imaging Studies: none 08/31/24: Patient seen and examined in the office. He reports that the overall did very well with the SCS trial. He states that he noticed a significant improvement in his feet neuropathic pain. Reports getting ~75% pain relief. He states that he didn't notice much of a difference in his back pain however. Advised patient that the SCS will only help with his foot pain, but likely won't do much for his LBP. He denies any weakness in his LE, no bowel/bladder incontinence. No saddle anesthesia. SCS leads were removed, insertion sites were c/d/i. Gauze/tape applied to insertion sites. Rock Balderas MD [facility] [place] [facility] 08/31/2024 11:34:53
--- OUTSIDE RECORDS SUMMARY | 2024-09-02 11:18 | XMS_ITS | Clinical Summary ---
Author Organization [employer] Address [address] [place] [address] [address] [place] [address] Care Team Providers Care Pinball Machine Repairer Name Role Phone Audrey Smith MD Primary [...] MOUTH EVERYDAY AT NOON 023 Active Zenpep [id number] units capsule delayed-release particles capsule Take 1 [...] NOON 023 Active B-D 3CC LUER-CHRISTINE SYR 19DB9-7/2 21G X 1-2 3 ML misc USE [...] complication, without long-term current use of insulin (CMS/[facility]) TEST BLOOD SUGAR TWICE DAILY 100 each 11 Active Blood Glucose Monitoring Suppl (FreeStyle Lite) w/Device kitIndications:T ype 2 diabetes mellitus with hyperglycemia, without long-term current use of insulin (CMS/HCC) 1 kit 2 times daily. 1 kit 024 Active FREESTYLE LITE test stripIndications :Type 2 diabetes mellitus with hyperglycemia, without long-term current use of insulin (CMS/[facility]) TEST BLOOD SUGAR TWICE DAILY 50 strip [...] MG EC tabletIndication s:Coronary artery disease involving morongo coronary artery of morongo heart, unspecified whether angina present TAKE 1 TABLET BY MOUTH EVERYDAY AT NOON 90 tablet 1 024 Active clopidogrel (Plavix) 75 MG tabletIndication s:Coronary artery disease involving morongo coronary artery of morongo heart, unspecified whether angina present TAKE 1 [...] 24 hr tabletIndication s:Coronary artery disease involving morongo coronary artery of morongo heart, unspecified whether angina present TAKE 1 [...] complication, unspecified whether prison insulin use (CMS/HCC) TAKE 1 TABLET BY [...] day. 30 tablet 11 025 2025 Active canagliflozin (Invokana) 100 MG TAKE 1 TABLET [...] of colon 11/20/2017 Hyperuricemia 11/20/2017 CAD in morongo artery 11/20/2017 Benign prostatic hyperplasia with nocturia [...] will continue with same medications, I extensibly veterans' counselor him about diabetic diet and let him know his glucose also will likely go down after back injections wears out - Encounters Date Type Department Care Team Description 08/30/2024 Orders Only GENERIC EXTERNAL DATA DEPARTMENT Provider, Generic External Data 08/26/2024 Orders Only [facility] [address] [place] [address] Audrey Smith MD Type 2 diabetes mellitus with hyperglycemia, without long-term current use of insulin ([facility]) (Primary Dx) 08/26/2024 Refill [facility] [address] [place] [address] Audrey Smith MD Diabetic polyneuropathy associated with type 2 diabetes mellitus ([facility]) 08/25/2024 Orders Only GENERIC EXTERNAL DATA DEPARTMENT Provider, Generic External Data 08/01/2024 Refill [facility] [address] [place] [address] Audrey Smith MD Type 2 diabetes mellitus without complication, unspecified whether terminal computer operator insulin use ([facility]) 07/29/2024 Refill [facility] [address] [place] [address] Audrey Smith MD Muscle spasm 07/26/2024 Telephone [facility] [address] [place] [address] Audrey Smith MD Med Refill 07/09/2024 Telephone [facility] [address] [place] [address] Audrey Smith MD Prior Authorization ( [place] Request: Invokana) 06/27/2024 Refill [facility] [address] [place] [address] Audrey Smith MD Diabetic polyneuropathy associated with type 2 diabetes mellitus ([facility]) 06/11/2024 Telephone [facility] [address] [place], [place] [phone] Audrey Smith MD Prior Authorization 06/03/2024 Refill [facility] [address] [place] [address] Audrey Smith MD Coronary artery disease involving morongo coronary artery of morongo heart, unspecified whether angina present; Hypothyroidism, unspecified type; Vitamin D deficiency 06/02/2024 Refill [facility] [address] [place] [address] Audrey Smith MD from Last 3 Months [...] Description 09/17/2024 10:00 AM EST Office Visit [facility] [address] [place] [address] Audrey Smith MD [address] [place], [place] [phone] Health Maintenance Due Date Last Done Comments CT Colonography 1969 FIT DNA/Cologuard 1969 FIT 1969 FOBT 1969 Sigmoidoscopy 1969 Diabetes: Foot Exam 11/07/1979 Hepatitis C Screening 11/07/1987 Hepatitis A Vaccines (1 of 2 - Risk 2-dose series) 1988 Colonoscopy 05/22/2023 05/22/2021 Colorectal Cancer Screening 05/22/2023 SDOH Screening 08/01/2024 08/01/2023 Diabetes: Hemoglobin A1C 08/21/2024 024, 02/26/2024, 11/19/2023, Additional history exists Alcohol/Substance Use Screening 05/21/2025 05/21/2024 Depression Screening 05/21/2025 05/21/2024, 05/21/20 24 Tobacco Screening 05/21/2025 05/21/2024 Diabetes: Urine Protein [...] WHOLE BLOOD Routine 08/30/2024 11:15 AM EST LIPID PANEL, STANDARD Routine 08/25/2024 7:10 AM EST TSH W/REFLEX TO FT4 Routine 06/02/2024 8 :55 AM EST Type 2 diabetes mellitus with hyperglycemia, without long-term current use of insulin ([facility]) COMPREHENSIVE METABOLIC PANEL Routine 06/02/2024 8:55 AM EST Type 2 diabetes mellitus with hyperglycemia, without long-term current use of insulin (CMS/HCC) ALBUMIN, RANDOM URINE W/CREATININE Routine 06/02/2024 8:55 AM EST Type 2 diabetes mellitus with hyperglycemia, without long-term current use of insulin (CMS/HCC) LIPID PANEL, STANDARD Routine 06/02/2024 8:55 AM EST Type 2 diabetes mellitus with hyperglycemia, without long-term current use of insulin ([facility]) POCT GLYCATED HEMOGLOBIN, TOTAL Routine 05/21/2024 9:37 AM EDT Type 2 diabetes mellitus with hyperglycemia, without long-term current use of insulin ([facility]) HM COLONOSCOPY Routine 05/22/2021 ZZZ HISTORICAL HIV AB/AG Routine 10/01/2019 10:28 AM EDT from Last 3 Months or Most Recently Relevant to Health Maintenance Results * Hematoxylin and Eosin Stain (08/30/2024 12:43 PM EST) 08/30/2024 12:4 3 PM EST 08/30/2024 1:14 PM EST [facility] - 08/31/2024 3:23 PM EST ----- ------- Name: Owen Montano ?Age/Sex: 53/M ? : 1970 Unit#: [id number] ?? Attend Dr: Francesca Leyva MD ?Re08/30/24 ?Status: DEP SDC ? Location: HO.SSS ?Disch: ? ----- ------- SPEC : [id number] ?RECD: 08/30/24 ? STATUS: ??SOUT ? REQ NUM: [id number] ? JUAN FRANCISCO: 08/30/24-1242 ? SUBM DR: Francesca Leyva MD ? ENTERED: ??08/30/242 ?SP TYPE: Surgical ? OTHR DR: Audrey [...] microscopic examination, 2 pieces in cassette [facility] Copies To: ?? Audrey Smith MD ?? [facility] ?? [address] ?? [place] [address] ?? [phone] ?? Francesca Leyva MD ?? [facility] ?? [address] ?? [place] ?? [phone] ----- ------- Signed (signature on file) Samantha Olson MD 08/31/24 1523 ? ----- ------- ? END OF REPORT ? us Generic External Data Provider LAB BLOOD ORDERAB LES Final Result [facility] [address] [place] [phone] * (ABNORMAL) Glucose, Whole Blood (08/30/2024 11:15 AM EST) Glucose, Whole Blood 134(H) 60 - 115 mg/dL [facility] Comment:METER #: [id number] 08/30/2024 11:1 5 AM EST 08/30/2024 11:21 AM EST Generic External Data Provider LAB BLOOD ORDERAB LES Final Result Performing Organization Address [facility]/ZIP Co de Phone Number [facility] [address] [place] [phone] * (ABNORMAL) Lipid Panel, Standard (08/25/2024 7:10 AM EST) Only the most recent of2 resultswithin the time period is included. Triglycerides 181(H) <150 mg/dL [facility] Comment:Desirable Triglyceri de: less than 150 mg/dLBorderline High Triglyceride 150-199 mg/dLHigh Triglyceride: 200-499 mg/dLVery High Triglyceride: greater than or equal to 5OO mg/dL Cholesterol 142 <200 mg/dL [facility] Comment:Desirable Cholestero l: less than 200 mg/dLBorderline High Cholesterol: 200-239 mg/dLHigh Cholesterol: greater than 239 mg/dL LDL Cholesterol Calculated 68 <100 mg/dL [facility] Comment:Desirable LDL: less than 100 mg/dLNear Optimal/Above Optimal LDL: 110- 129 mg/dLBorderline High LDL: 130-159 mg/dLHigh LDL: 160-189 mg/dLVery High LDL: greater than or equal to 190 mg/dL HDL Cholesterol 38(L) >40 mg/dL [facility] Comment:Desirable HDL: great er than 40 mg/dL Note: This HDL assay may give artificially low results in patients with liver disease. 08/25/2024 7:10 AM EST 08/25/2024 7:10 AM EST Generic External Data Provider LAB BLOOD ORDERAB LES Final Result Performing Organization Address [facility]/ZIP Co de Phone Number [facility] [address] [place] [phone] * TSH W/Reflex to FT4 (06/02/2024 8:55 AM EST) TSH reflex Free T4 2.21 0.32 - 4.0 uIU/mL [facility] Blood Venous blood specimen / Unknown 06/02/2024 8:55 AM EST 06/02/2024 10:51 AM EST Audrey Holman MD LAB BLOOD ORDERABLES Final Result Performing Organization Address [facility] Co de Phone Number [facility] [address] [place] [phone] * Albumin, Random Urine W/Creatinine (06/02/2024 8:55 AM EST) Creatinine, Urine 107.27 mg/dL [facility] Microalbumin Urine <5.0 mg/L [facility] Microalbum Creatinine Ratio Ur TNP <30 ug/mg cr [facility] Comment:Unable to calculate albumin/creatinine ratio due to lowmicroalbumin or creatinine result. Urine (Urine, Random) 06/02/2024 8:55 AM EST 06/02/2024 10:47 AM EST us Audrey Holman MD LAB URINE ORDERABLES Final Result Performing Organization Address [facility] Co de Phone Number [facility] [address] [place] [phone] * (ABNORMAL) Comprehensive Metabolic Panel (06/02/2024 8:55 AM EST) Sodium 137 135 - 145 mmol/L [facility] Potassium 4.4 3.3 - 5.1 mmol/L [facility] Chloride 99 96 - 108 mmol/L [facility] Carbon Dioxide 31(H) 22 - 29 mmol/L [facility] Anion Gap 11(L) 12 - 20 [facility] Urea Nitrogen (BUN) 10 9 - 16 mg/dL [facility] Creatinine, Serum 0.92 0.5 - 1.4 mg/dL [facility] Estimated Glomerular Filt Rate >60 [facility] Comment:Chronic Kidney Disea se: Estimated GFR < 60 mL/min/1.43s0Hthfkt Kidney Disease: Estimated GFR < 15 mL/min/1.73m2 Glucose 166(H) 60 - 115 mg/dL [facility] Calcium 10.0 8.4 - 10.2 mg/dL [facility] Bilirubin, Total 0.7 0.0 - 1.0 mg/dL [facility] Aspartate Amino Transferase 28 5 - 37 U/L [facility] Alanine Aminotransferase 32 0 - 40 U/L [facility] Total Protein 6.9 6.5 - 8.0 g/dL [facility] Albumin Level 4.1 3.5 - 5.0 g/dL [facility] Alkaline Phosphatase 82 39 - 117 U/L [facility] Blood Venous blood specimen / Unknown 06/02/2024 8:55 AM EST 06/02/2024 10:51 AM EST Audrey Holman MD LAB BLOOD ORDERABLES Final Result [facility] [address] [place] [phone] * (ABNORMAL) POCT HGB A1C (05/21/2024 9:37 AM EDT) Hemoglobin A1C 7.3(A) 4.0 - 6.0 % QC Media Lot # [id number] Lot# Expiration Date [id number] Blood 05/21/2024 9:37 AM EDT Audrey Holman MD POINT OF CARE TEST EN TER/EDIT ORDERABLES Final Result * Hm Colonoscopy (05/22/2021) Natasha Provider HEALTH MAINTENANCE Final Result * HIV AB/AG (10/01/2019 10:28 AM EDT) [facility] HIV AG/AB NONREACTIVE NR FOUNDATI ON [...] of detection of this assay. ?? [facility] HIV Ag/Ab Combo assay result and supplemental assay results should be interpreted in conjunction with the patient's clinical presentation, history and other laboratory results. ??If the results are inconsistent with clinical evidence, additional testing is suggested to confirm the result. 10/01/2019 10:2 8 AM EDT Audrey Holman MD HISTORICAL/NON ORDERA BLE LABS Final Result [facility] [address] from Last 3 Months or Most Recently Relevant to Health Maintenance Insurance [facility] C3 Care Teams Pinball Machine Repairer Relationship Specialty Start Date End Date Audrey Smith MD [address] [place] [phone] PCP - General Family Medicine 11/20/17
--- OUTSIDE RECORDS SUMMARY | 2024-09-02 11:18 | XMS_ITS | Encounter Summary ---
Author Organization [employer] Address [address] [place] [address] Care Team Providers Care International Operations Manager Name Role Phone Audrey Smith MD Primary Care Provide r Encounter Details Date Type Department Care Team ([facility] st Contact Info) Description 08/26/2024 Orders Only [facility] [address] [place], [place] [phone] Audrey Smith MD [address] [place] [address] Type 2 diabetes mellitus with hyperglycemia, without long-term current use of insulin ([facility]) (Primary Dx) Social History Tobacco Use Types [...] Description 09/17/2024 10:00 AM EST Office Visit [facility] [address] [place] [address] Audrey Smith MD [address] [place] [address] documented as of this encounter Visit Diagnoses Diagnosis Type 2 diabetes mellitus with hyperglycemia, without long-term current use of insulin ([facility])- Primary documented in this encounter Additional Health Concerns Assessment Noted Time PHQ-9 Depression Total Score: 0 05/21/20 24 9:38 AM EDT documented as of this encounter Care Teams International Operations Manager Relationship Specialty Start Date End Date Audrey Smith MD [address] [place] [address] PCP - General Family Medicine 11/20/17 documented as of this encounter
--- OUTSIDE RECORDS SUMMARY | 2024-09-02 11:18 | XMS_ITS | Clinical Summary ---
Author Organization [facility] Address [address] [place] [address] Care Team Providers Care Physical Therapist Aide Name Role Phone Unavailable Primary Care Provider Unavailabl e Allergies No known active allergies Medications Medication Sig Dispensed Refills Start Date End Date Status Praluent 75 MG/ML SOAJ INJECT 75 MG SUBCUTANEOUSLY EVERY 2 WEEKS 0 03/12/2024 Active aspirin 81 MG EC tablet TAKE 1 TABLET BY MOUTH EVERYDAY AT NOON 0 12/17/2023 Active Invokana 100 MG tablet TAKE 1 TABLET BY MOUTH EVERYDAY AT NOON BEFORE MEALS 0 03/12/2024 Active clopidogrel (PLAVIX) 75 MG tablet TAKE 1 TABLET BY MOUTH EVERYDAY AT NOON 0 03/16/2024 Active cyclobenzaprine (FLEXERIL) 5 MG tablet Take 1 tablet (5 mg total) by mouth 3 (three) times a day. 0 03/18/2024 Active dicyclomine (BENTYL) 20 MG tablet TAKE 1 TABLET BY MOUTH FOUR TIMES DAILY FOR FOR CRAMPS 0 11/12/2022 Active glipiZIDE (GLUCOTROL XL) ER 24 hr tablet 2.5 mg TAKE 1 TABLET BY MOUTH EVERYDAY AT NOON 0 02/18/2024 Active hydrOXYzine (ATARAX) 50 MG tablet TAKE 1 TABLET BY MOUTH AT BEDTIME NEEDED FOR SLEEP OR FOR ANXIETY 0 11/20/2022 Active imipramine (TOFRANIL) 10 MG tablet Take 1 tablet (10 mg total) by mouth every night at bedtime. 0 03/12/2024 Active LORazepam (ATIVAN) 2 MG tablet Take 1 tablet (2 mg total) by mouth every night at bedtime. 0 03/18/2024 Active metFORMIN (GLUCOPHAGE) tablet 1000 mg TAKE 1 TABLET BY MOUTH TWICE DAILY AT NOON AND IN THE EVENING WITH FOOD 0 03/16/2024 Active NEEDLE, DISP, 22 G (Easy Touch Hypodermic Needle) 22G X 1-1/2 MISC USE FOR INJECT testosterone 0 11/21/2023 Active metoprolol succinate (TOPROL-XL) 24 hr tablet 50 mg TAKE 1 TABLET BY MOUTH EVERYDAY AT NOON 0 12/17/2023 Active oxybutynin (DITROPAN-XL) 5 MG 24 hr tablet TAKE 1 TABLET BY MOUTH EVERYDAY AT NOON 0 03/12/2024 Active risperiDONE (RisperDAL) 4 MG tablet TAKE 1 TABLET BY MOUTH TWICE DAILY AT NOON AND BEDTIME 0 03/18/2024 Active promethazine (PHENERGAN) tablet 25 mg TAKE 1 TABLET BY MOUTH EVERY TWELVE HOURS NEEDED FOR NAUSEA AND VOMITING 0 11/27/2022 Active rosuvastatin (CRESTOR) tablet 20 mg Take 1 tablet (20 mg total) by mouth every night at bedtime. 0 02/19/2024 Active tamsulosin (FLOMAX) 0.4 MG CAPS Take 1 capsule (0.4 mg total) by mouth. 0 10/22/2022 Active testosterone cypionate (DEPO-TESTOSTERONE CYPIONATE) injection 200 mg/mL INJECT 0.7 ML (140 MG) INTRAMUSCULARLY EVERY 2 WEEKS 0 03/15/2024 Active Social History Tobacco Use Types Packs/Day Years Used Date Smoking Tobacco: Never Assessed Sex and Gender Information Value Date Recorded Sex Assigned at Not on file Gender Identity Not on file Sexual Orientation Not on file Job Start Date Occupation Industry Not on file Not on file Not on file Last Filed Vital Signs Vital Sign Reading Time Taken Comments Blood Pressure 116/64 04/06/2024 12:16 PM EDT Pulse 64 04/06/2024 12:16 PM EDT Temperature - - Respiratory Rate - - Oxygen Saturation 99% 04/06/2024 12:16 PM EDT Inhaled Oxygen Concentration - - Weight 73.9 kg (163 lb) 04/06/2024 12:16 PM EDT Height 165.1 cm (5' 5 ) 04/06/2024 12:16 PM EDT Body Mass Index 27.12 04/06/2024 12:16 PM EDT Plan of Treatment Health Maintenance Due Date Last Done Comments Hepatitis C Screening 1969 Depression Screening 1981 Preventative Health Evaluation 11/07/1987 Colon Cancer Screening (Colonoscopy) 2014 COVID-19 Vaccine ( season) 2024 08/01/2023, 07/10/2022, 10/31/2021 Influenza Vaccine (#1) 2024 3, 04/18/2022, 04/13/2021, Additional history exists DTap / Tdap / Td (2 - Td or Tdap) 03/16/2028 03/16/2018 Hepatitis B Vaccines Completed 12/07/2020, 01/25/2019, 12/25/2018 Shingrix-Zoster Vaccine Completed 08/09/2021, 05/30 Pneumococcal Vaccine Completed 10/22/2023 RSV Ped < 20 months Aged Out No longe r eligible based on patient's age to complete this topic
--- OUTSIDE RECORDS SUMMARY | 2024-09-02 11:18 | XMS_ITS | Encounter Summary ---
Author Organization [facility] Address [address] [place] [address] Care Team Providers Care Industrial Sales Representative Name Role Phone Audrey Smith MD Primary Care Provide r Reason for Referral * Pain Management (Routine) - Closed Specialty Diagnoses / Procedures Referred By Contac t Referred To Contact Pain Medicine Diagnoses Type 2 diabetes mellitus with diabetic polyneuropathy (CMS/HCC) Procedures Insertion stimulator spinal cord trial Rock Parsons MD [address] [place] [address] Phone: tel: fax: Referral ID Status Reason Start Date Expiration Date Visits Re quested Visits Authorized [id number] Closed 08/12/2024 08/12/2025 1 1 Reason for Visit * Pain Management (Routine) - Closed Specialty Diagnoses / Procedures Referred By Contac t Referred To Contact Pain Medicine Diagnoses Type 2 diabetes mellitus with diabetic polyneuropathy (CMS/HCC) Procedures Insertion stimulator spinal cord trial Rock Parsons MD [address] [place] [address] Phone: tel: fax: Referral ID Status Reason Start Date Expiration Date Visits Re quested Visits Authorized [id number] Closed 08/12/2024 08/12/2025 1 1 Encounter Details Date Type Department Care Team (Latest Contact Info) Description 08/24/2024 7:08 AM EST - 08/24/2024 11:59 PM EST Hospital Encounter [facility] Pain Management [address] [place] [phone] Rock Parsons MD [address] [place] [phone] Jonatan Alvarado DO [address] [place], [place] [phone] Юлия Marmolejo CRNA [address] [place], [place] [phone] Type 2 diabetes mellitus with diabetic polyneuropathy, unspecified whether usp insulin use (CMS/HCC) [E11.42] (Primary Dx); Type 2 diabetes mellitus with diabetic polyneuropathy (CMS/[facility]); Peripheral polyneuropathy [G62.9] Discharge Disposition: Home or [...] be sent through Care Everywhere. * Sedation (Japanese) * Spinal Cord Stimulation: General Info (Japanese) * Spinal Cord Stimulation: General Info (German) documented in this encounter Medications at Time [...] - 08/24/2024 8:00 AM EST SUNG BURRIS-FRIEND [phone] * Marcelle Laurent RN - 08/24/2024 8:[address] Parsons and spinal cord stimulator rep at bedside reviewing dc instructions and spinal stimulator instructions. * Marcelle Laurent RN - 08/24/2024 8:00 AM EST Pt standing at bedside. Rep working w/pt on settings of spinal stimulator w/slovak video superintendent service. * Marcelle Laurent RN - 08/24/2024 8:00 AM EST All questions answered pt and crm functional analyst verbalized understanding of all instructions. * Rock [...] T12 vertebral body). The spinal cord stimulator credit and collections representative was on hand to perform with me [...] neuroelectrodes to the patient's back and the credit and collections representative explained further programming with the patient, as [...] 09/14/2024 3:15 PM EST Office Visit Neurosurgery [facility] [address] [facility] [address] [place] [phone] Cara Davenport MD [address] [place] [address] 11/01/2024 9:15 AM EDT Office Visit Orthopedic Surgery [facility] [address] [facility] [address] [place] [phone] Aaron Graves DPM [address] [facility] [address] [place] [address] Scheduled Orders Name Type Priority Associated Diagnoses Orde r Schedule Insertion stimulator spinal cord trial Procedures Routine Type 2 diabetes mellitus with diabetic polyneuropathy ([facility]) Once for 1 Occurrences starting 08/24/2024 until 08/24/2024 documented as of this encounter Procedures Procedure Name Priority Date/Time Associated Diagnosis Comments POCT GLUCOSE BLOOD Routine 08/24/2024 7: 25 AM EST documented in this encounter Results * (ABNORMAL) POCT Glucose, blood (08/24/2024 7:25 AM EST) Glucose POCT 145(H) 70 - 100 mg/dL 08/24/2024 7:[address] [facility] Blood Capillary blood specimen / Unknown 08/24/2024 7:25 AM EST 08/24/2024 7:27 AM EST us Юлия Marmolejo CRNA LAB POINT OF CARE TE ST DOCKED DEVICE UNSOLICITED RESULTS Final Result [facility] [address] [place] [address], documented in this encounter Visit Diagnoses Diagnosis Type 2 diabetes mellitus with diabetic polyneuropathy, unspecified whether watermelon inspector insulin use ([facility]) [E11.42]- Primary Peripheral polyneuropathy [G62.9] documented in [...] day. added in this encounter Care Teams Industrial Sales Representative Relationship Specialty Start Date End Date Audrey Smith MD [address] [place] [phone] PCP - General 07/01/23 documented as of this encounter
--- OUTSIDE RECORDS SUMMARY | 2024-09-02 11:18 | XMS_ITS | Encounter Summary ---
Author Organization [employer] Address [address] [facility] [address] 7t [place] [address] Care Team Providers Care Dye Winch Operator Name Role Phone Audrey Smith MD Primary Care Provide r Encounter Details Date Type Department Care Team ([facility] st Contact Info) Description 08/25/2024 Orders Only [...] Description 09/17/2024 10:00 AM EST Office Visit [facility] [address] [place] [address] Audrey Smith MD 230 [place], [place] [phone] documented as of this encounter Procedures Procedure Name Priority Date/Time Associated Diagnosis Comments LIPID PANEL, STANDARD Routine 08/25/2024 7:10 AM EST documented in this encounter Results * (ABNORMAL) Lipid Panel, Standard (08/25/2024 7:10 AM EST) Triglycerides 181(H) <150 mg/dL [facility] Comment:Desirable Triglyceri de: less than 150 mg/dLBorderline High Triglyceride 150-199 mg/dLHigh Triglyceride: 200-499 mg/dLVery High Triglyceride: greater than or equal to 5OO mg/dL Cholesterol 142 <200 mg/dL [facility] Comment:Desirable Cholestero l: less than 200 mg/dLBorderline High Cholesterol: 200-239 mg/dLHigh Cholesterol: greater than 239 mg/dL LDL Cholesterol Calculated 68 <100 mg/dL [facility] Comment:Desirable LDL: less than 100 mg/dLNear Optimal/Above Optimal LDL: 110- 129 mg/dLBorderline High LDL: 130-159 mg/dLHigh LDL: 160-189 mg/dLVery High LDL: greater than or equal to 190 mg/dL HDL Cholesterol 38(L) >40 mg/dL [facility] Comment:Desirable HDL: great er than 40 mg/dL Note: This HDL assay may give artificially low results in patients with liver disease. 08/25/2024 7:10 AM EST 08/25/2024 7:10 AM EST us Generic External Data Provider LAB BLOOD ORDERAB LES Final Result Performing Organization Address City/State/[facility] Co de Phone Number [facility] [address] [place] [address] [phone] documented in this encounter Visit Diagnoses Not on filedocumented in this encounter Additional Health Concerns Assessment Noted Time PHQ-9 Depression Total Score: 0 05/21/20 24 9:38 AM EDT documented as of this encounter Care Teams Dye Winch Operator Relationship Specialty Start Date End Date Audrey Smith MD [address] [place] [address] PCP - General Family Medicine 11/20/17 documented as of this encounter
--- OUTSIDE RECORDS SUMMARY | 2024-09-02 11:18 | XMS_ITS | Encounter Summary ---
Author Organization [employer] Address 75 [facility] 7t [place] [address] Care Team Providers Care Foundry Worker Name Role Phone Audrey Smith MD Primary Care Provide r Reason for Visit * Reason Comments Med Refill Encounter Details Date Type Department Care Team ([facility] st Contact Info) Description 08/26/2024 Refill [facility] [address] [place] [address] Audrey Smith MD [address] [place] [address] Diabetic polyneuropathy associated with type 2 diabetes [...] Description 09/17/2024 10:00 AM EST Office Visit [facility] [address] [place] [address] Audrey Smith MD [address] [place], [place] [phone] documented as of this encounter Visit Diagnoses Diagnosis Diabetic polyneuropathy associated with type 2 diabetes mellitus (CMS/HCC) documented in this encounter Additional Health Concerns Assessment Noted Time PHQ-9 Depression Total Score: 0 05/21/20 24 9:38 AM EDT documented as of this encounter Care Teams Foundry Worker Relationship Specialty Start Date End Date Audrey Smith MD [address] [place], [place] [phone] PCP - General Family Medicine 11/20/17 documented as of this encounter
--- OUTSIDE RECORDS SUMMARY | 2024-09-02 11:18 | XMS_ITS | Encounter Summary ---
Author Organization [employer] Address [address] [place] [address] 7t [place] [address] Care Team Providers Care Date Puller Name Role Phone Audrey Smith MD Primary Care Provide r Encounter Details Date Type Department Care Team ([facility] Contact Info) Description 08/30/2022 Orders Only [facility] [address] [place] [address] Vane Cervantes MD [address] [place] [phone] Muscle spasm (Primary Dx) Social History Tobacco [...] 10:00 AM EST Office Visit [facility] [address] [place] [address] Audrey Smith MD 230 [place], [place] [phone] documented as of this encounter Visit Diagnoses Diagnosis Muscle spasm- Primary Spasm of muscle documented in this encounter Care Teams Date Puller Relationship Specialty Start Date End Date Audrey Smith MD [address] [place] [phone] PCP - General Family Medicine 11/20/17 documented as of this encounter
== END 2024-09-02 11:10 | disposition home or self-care (01) ==
PROVIDERS: PCP Internal Medicine; Visit Provider Urology
DX: E29.1 Testicular hypofunction (principal); R68.82 Decreased libido; R71.8 Other abnormality of red blood cells
CPT/HCPCS: 11980

== ENCOUNTER → 2024-09-02 10:35 | Outpatient (BNVA) | payer MEDICAID, SELFPAY | PROVIDERS: PCP Internal Medicine; Visit Provider Urology | DX: R68.82 Decreased libido (principal); E29.1 Testicular hypofunction; R71.8 Other abnormality of red blood cells | CPT/HCPCS: 11980; J2003; J3490 ==

== ENCOUNTER 2024-09-15 07:18 | Outpatient (REF) | payer MEDICAID, SELFPAY ==
--- OUTSIDE RECORDS SUMMARY | 2024-09-15 07:22 | XMS_ITS | Encounter Summary ---
Author Organization [employer] Address 75 [facility] 7t [place] [address] Care Team Providers Care Smocking Machine Operator Name Role Phone Audrey Smith MD Primary Care Provide r Reason for Visit * Reason Comments Med Refill Encounter Details Date Type Department Care Team ([facility] Contact Info) Description 03/09/[address] [facility]S [address] [place], [place] [phone] Alice Huber MD 230 [place], [place] [phone] Type 2 diabetes mellitus without complication, unspecified whether fdc insulin use (CMS/HCC) Social History Tobacco Use [...] Upcoming Encounters Date Type Department Care Team ([facility] Contact Info) Description 09/17/2024 10:00 AM EST Office Visit [facility] MEDICINE [address] [place], [place] [phone] Audrey Smith MD 230 [place], [place] [phone] documented as of this encounter Visit Diagnoses Diagnosis Type 2 diabetes mellitus without complication, unspecified whether fdc insulin use (CMS/HCC) documented in this encounter Care Teams Smocking Machine Operator Relationship Specialty Start Date End Date Audrey Smith MD [address] [place] [address] PCP - General Family Medicine 11/20/17 documented as of this encounter
--- OUTSIDE RECORDS SUMMARY | 2024-09-15 07:22 | XMS_ITS | Encounter Summary ---
Author Organization [employer] Address [address] [place] [address] Care Team Providers Care Seamless Tube Drawer Name Role Phone Audrey Smith MD Primary Care Provide r Encounter Details Date Type Department Care Team (Late st Contact Info) Description 08/24/2024 9:47 AM EST Anesthesia Event [facility] [address] [place] [address] Jonatan Alvarado DO [address] [place] [address] Anesthesia Record Procedure Summary Procedure Name Responsible [...] Procedure Summary Date: 08/24/24 Room / Location: [facility] Anesthesia Start: 946 Anesthesia Stop: [...] placed in 2015, 2016, 2017) (-) past [place], angina, ROBERTSON Rhythm: regular Rate: normal ROS [...] AM EDT Office Visit [facility] - [place] [address] [phone] Aaron Graves, DPFauzia [address] [address] documented as of this encounter Visit Diagnoses [...] mg documented in this encounter Care Teams Seamless Tube Drawer Relationship Specialty Start Date End Date Audrey Smith MD [address] [place] [phone] PCP - General 07/01/23 documented as of this encounter
--- OUTSIDE RECORDS SUMMARY | 2024-09-15 07:22 | XMS_ITS | Encounter Summary ---
Author Organization [facility] Address [address] [place] [address] Care Team Providers Care General Road Production Manager Name Role Phone Audrey Smith MD Primary Care Provide r Reason for Visit * Reason Comments Pain Eval for spinal cord stim placement * Consultation (Routine) - Authorized Specialty Diagnoses / Procedures Referred By Contac t Referred To Contact Neurosurgery Diagnoses Chronic low back pain, unspecified back pain laterality, unspecified whether sciatica present Rock Parsons MD [address] [address] Phone: tel: fax: Cara Davenport MD 175 [place] [address] Phone: tel: fax: Referral ID Status Reason Start Date Expiration Date Visits Requested Visits Authorized [id number] Authorized Specialty Services Required 09/02/2024 09/02/2025 2 2 Encounter Details Date Type Department Care Team (Late st Contact Info) Description 09/14/2024 3:15 PM EST Office Visit [facility] [place] [facility] 175 [facility] [address] [place] [address] Cara Davenport MD 175 [place] [address] Diabetic neuropathy, painful (CMS/HCC) (Primary Dx) Social History Tobacco Use Types [...] as of this encounter Progress Notes * Cara Davenport MD - 09/14/2024 4:44 PM ESTAssociated Problem(s): Diabetic neuropathy, painful (CMS/HCC) I reviewed the steps involved in placement of the spinal cord stimulator leads and generator with the patient in conjunction with Sarbjit the b2b outside sales representative from [employer] and a director gift. I demonstrated the position of each incision on his body and we talked extensively about what to expect in terms of improvement specifically, that it should match his results from the trial, we di scussed the anticipated postoperative course in terms of lifting and climbing stairs and how soon afterwards he would be able to travel and potentially go in the water. Establish the plan that Dr. Parsons will place stimulator leads at T12- L1 and we will tunnel to a rechargeable generator pocket on his left side. All questions were answered and he wishes to proceed. * Cara Davenport MD - 09/14/2024 3:15 PM EST NEUROSURGERY OFFICE VISIT Date of Visit: 09/14/2024 Referring Physician: Rock Parsons MD Primary Care Physician: Audrey Holman MD RE: Owen Hurd : 1970 Chief Complaint Patient presents with Pain Eval for spinal cord stim placement Dear MD Owen Han is a 53 y.o. male who presents to our office as a referral from Dr. Parsons for assistance with placement of a spinal cord stimulator. He did well through the stimulator trial with a 70% improvement in the burning neuropathic pain he feels in both feet. He describes this as both burning and numb where he sometimes has difficulty walking because he he does not feel the groundproperly. Generally, the right is worse than the left he has been suffering with this diabetic neuropathy for 8 years. Over time, he has tried physical therapy, cortisone injections and acupuncture without improvement. He was seen today with Sarbjit the b2b outside sales representative from [facility] as well as with a home extension agent. Past Medical History: Diagnosis Date Depression Diabetes mellitus (CMS/HCC) DX:Diabetes mellitus (HCC) Disease of thyroid gland DX:Disease of thyroid gland GERD (gastroesophageal reflux disease) Hypercholesteremia DX:Hypercholesteremia Hypertension DX:Hypertension Joint pain Psychiatric illness Sleep apnea DX:Sleep apnea Past Surgical History: Procedure Laterality Date ABSCESS DRAINAGE RIGHT ARM/RIGHT FOOT CORONARY ANGIOPLASTY WITH STENT PLACEMENT No Known Allergies Current Outpatient Medications Medication Instructions aspirin 81 mg, oral, Daily canagliflozin (INVOKANA) 100 mg, oral, Daily cholecalciferol (VITAMIN D-3) 1,000 Units, oral, Daily clopidogreL (PLAVIX) 75 mg, oral, Daily cyclobenzaprine (FLEXERIL) 5 mg tablet oral, 3 times daily diclofenac (VOLTAREN) 1 % topical gel Apply 4 g topically 2 times daily. dicyclomine (BENTYL) 20 mg, oral, 4 times daily PRN famotidine (PEPCID) 40 mg tablet oral, 2 times daily fexofenadine (AUSTIN) 180 mg, oral, Daily gabapentin (NEURONTIN) 400 mg, oral, 3 times daily glipiZIDE (GLUCOTROL XL) 2.5 mg, oral, Daily, Do not crush, chew, or split. glucose 16 g, oral, As needed hydrOXYzine HCL (ATARAX) 50 mg, oral, Nightly PRN imipramine (TOFRANIL) 10 mg, oral, Nightly levothyroxine (SYNTHROID, LEVOTHROID) 25 mcg tablet oral, Every morning before breakfast loperamide (IMODIUM) 2 mg, oral, 4 times daily PRN LORazepam (ATIVAN) 2 mg, oral, Nightly metFORMIN (FORTAMET) 1,000 mg, oral, 2 times daily, Do not crush, chew, or split. metoprolol succinate (TOPROL-XL) 50 mg, oral, Daily, Do not crush or chew. nitroglycerin (NITROSTAT) 0.4 mg, sublingual, Every 5 min PRN oxyBUTYnin XL (DITROPAN-XL) 5 mg 24 hr tablet oral, Do not crush, chew, or split. promethazine (PHENERGAN) 25 mg, oral, Every 12 hours PRN psyllium (METAMUCIL) 520 mg, oral, 2 times daily risperiDONE (RISPERDAL) 4 mg, oral, 2 times daily rosuvastatin (CRESTOR) 20 mg, oral, Nightly sertraline (ZOLOFT) 200 mg, oral, Daily tamsulosin (FLOMAX) 0.4 mg, oral, Nightly, Capsules should be taken 30 minutes following the same meal each day. testosterone cypionate (DEPO-TESTOTERONE) 140 mg, intramuscular, Every 14 days Social History Substance Use Topics Alcohol use: Not Currently Drug use: Not Currently Social History Social History Narrative Not on file No family history on file. Physical Exam Pt is awake and alert. Speech and comprehension are intact in Korean. Respirations are unlabored, heart has regular rate. There is no step-off or deformity of the lumbar spine and he is nontender topalpation. Motor exam reveals 5/5 strength to resistence bilaterally. Patient is ambulating independ ently. Imaging We reviewed the thoracolumbar x-rays from his spinal cord stimulator trial and demonstrated the intended placement of the electrodes at T12-L1. Assessment/Plan Problem List Items Addressed This Visit Diabetic neuropathy, painful (CMS/HCC) - Primary I reviewed the steps involved in placement of the spinal cord stimulator leads and generator with the patient in conjunction with Sarbjit fierro b2b outside sales representative from [employer] and a director gift. I demonstrated the position of each incision on his body and we talked extensively about what to expect in terms of improvement specifically, that it should match his results from the trial, we di scussed the anticipated postoperative course in terms of lifting and climbing stairs and how soon afterwards he would be able to travel and potentially go in the water. Establish the plan that Dr. Parsons will place stimulator leads at T12- L1 and we will tunnel to a rechargeable generator pocket on his left side. All questions were answered and he wishes to proceed. Thank you for allowing us to care for your patient. Cara Davenport MD on 09/14/2024 at 4:44 PM EST CC: Rock Parsons MD Maria A Barciona Guzman, MD [facility] Neurosurgical [place] documented in this encounter Plan of Treatment Upcoming Encounters Date Type Department Care Team (Late st Contact Info) Description 11/01/2024 9:15 AM EDT Office Visit Orthopedic Surgery - [place] [address] [address] Aaron Graves, DPM [address] [address] documented as of this encounter Visit Diagnoses Diagnosis Diabetic neuropathy, painful (CMS/HCC)- Primary Type II or unspecified type diabetes mellitus with neurological manifestations, not stated as uncontrolled documented in this encounter Orders Outpatient Referral Count Last Ordered Date Fir st Ordered Date AMB REFERRAL TO NEUROSURGERY 1 09/14/2024 documented in this encounter Care Teams General Road Production Manager Relationship Specialty Start Date End Date Audrey Smith MD [address] [address] PCP - General 07/01/23 documented as of this encounter
--- OUTSIDE RECORDS SUMMARY | 2024-09-15 07:22 | XMS_ITS | Encounter Summary ---
Author Organization [employer] Address [address] [place] [address] Care Team Providers Care Grove Worker Name Role Phone Audrey Smith MD Primary Care Provide r Encounter Details Date Type Department Care Team (Latest Contact Info) Description 08/24/2024 6:05 AM EST - 08/24/2024 11:59 PM EST Hospital Encounter [facility] Xray [address] [place] [address] Pain Discharge Disposition: Home or [...] AM EDT Office Visit Orthopedic Surgery - [place] [address] [address] Aaron Graves, MITCHELLM [address] [address] documented as of this encounter Procedures Procedure [...] Signed Date: 08/24/2024 13:23 ET Workstation ID: [id number] Transcribed By: Self Edit Transcribed Date: 08/24/2024 [...] Signed Date: 08/24/2024 13:23 ET Workstation ID: [id number] Transcribed By: Self Edit Transcribed Date: 08/24/2024 13:23 ET us Rock Parsons MD IMG FLUOROSCOPY PROCEDURES Fin al Result documented in this encounter Visit Diagnoses Diagnosis Pain Generalized pain documented in this encounter Care Teams Grove Worker Relationship Specialty Start Date End Date Audrey Smith MD [address] [phone] PCP - General 07/01/23 documented as of this encounter
--- OUTSIDE RECORDS SUMMARY | 2024-09-15 07:22 | XMS_ITS ---
[facility] Name [facility] History of Medication Use Medication Directions Dispensed Refills Start Date End Date Stat glipizide ER 2.5 mg tablet, extended release 24 hr TAKE 1 TABLET BY MOUTH EVERYDAY AT NOON active loperamide 2 mg capsule TAKE 1 CAPSULE BY MOUTH TWICE DAILY NEEDED FOR DIARRHEA active Allergy Relief (fexofenadine) 180 mg tablet TAKE 1 TABLET BY MOUTH EVERYDAY AT NOON active Reguloid (psyllium husk) 0.4 gram capsule TAKE 1 CAPSULE BY MOUTH TWICE DAILY active lorazepam 2 mg tablet TAKE 1 TABLET BY MOUTH AT BEDTIME active metoprolol succinate ER 50 mg tablet,extended release 24 hr TAKE 1 TABLET BY MOUTH EVERYDAY AT NOON active promethazine 25 mg tablet TAKE 1 TABLET BY MOUTH EVERY TWELVE HOURS NEEDED FOR NAUSEA AND VOMITING active aspirin 81 mg tablet,delayed release TAKE 1 TABLET BY MOUTH EVERYDAY AT NOON active risperidone 4 mg tablet TAKE 1 TABLET BY MOUTH TWICE DAILY AT NOON AND BEDTIME active famotidine 40 mg tablet TAKE 1 TABLET BY MOUTH TWICE DAILY AT NOON AND IN THE EVENING active oxybutynin chloride ER 5 mg tablet,extended release 24 hr TAKE 1 TABLET BY MOUTH EVERYDAY AT NOON active Zenpep 5,000 unit-17,000 unit-24,000 unit capsule,delayed release TAKE 1 CAPSULE BY MOUTH FOUR TIMES DAILY active ibuprofen 600 mg tablet TAKE 1 TABLET BY MOUTH THREE TIMES DAILY WITH FOOD active Vitamin D3 25 mcg (1,000 unit) capsule TAKE 1 CAPSULE BY MOUTH EVERYDAY AT NOON active dicyclomine 20 mg tablet TAKE 1 TABLET BY MOUTH FOUR TIMES DAILY NEEDED FOR CRAMPS active clopidogrel 75 mg tablet TAKE 1 TABLET BY MOUTH EVERYDAY AT NOON active nitroglycerin 0.[address] 1 TABLET UNDER THE TONGUE NEEDED FOR CHEST PAIN - MAY REPEAT IN 5 MINUTES TWICE. IF NO RELIEF CALL 911 OR GO TO EMERGENCY ROOM. active Praluent Pen 75 mg/mL subcutaneous pen injector INJECT 75 MG SUBCUTANEOUSLY EVERY 2 WEEKS active gabapentin 400 mg capsule TAKE 1 CAPSULE BY MOUTH AT NOON, EVENING, AND BEDTIME active FreeStyle Lite Strips USE DIRECTED TO TEST BLOOD SUGAR TWICE DAILY active bisacodyl 5 mg tablet,delayed release TAKE 2 TABLETS BY MOUTH AT BEDTIME FOR 2 DAYS active Invokana 100 mg tablet TAKE 1 TABLET BY MOUTH EVERYDAY AT NOON BEFORE MEALS active lidocaine 5 % topical patch APPLY 1 PATCH TOPICALLY TO SKIN, LEAVE ON FOR 12 HOURS AND OFF FOR 12 HOURS DIRECTED active levothyroxine 25 mcg tablet TAKE 1 TABLET BY MOUTH EVERY MORNING BEFORE BREAKFAST active sertraline 50 mg tablet TAKE 1 TABLET BY MOUTH EVERYDAY AT NOON active diclofenac 1 % topical gel APPLY 4 GRAMS TOPICALLY TO AFFECTED AREA(S) TWICE DAILY active peg 3350-electrolytes 236 gram-22.74 gram-6.74 gram-5.86 gram solution MIX BOTTLE DIRECTED AND TAKE 240 ML BY MOUTH EVERY 10 MINUTES DO NOT EXCEED 2000 ML active cyclobenzaprine 5 mg tablet TAKE 1 TABLET BY MOUTH THREE TIMES DAILY active sertraline 100 mg tablet TAKE 2 TABLETS BY MOUTH ONCE DAILY AT NOON active tamsulosin 0.4 mg capsule TAKE 1 CAPSULE BY MOUTH AT BEDTIME active hydroxyzine HCl 50 mg tablet TAKE 1 TABLET BY MOUTH AT BEDTIME NEEDED FOR SLEEP / FOR ANXIETY active rosuvastatin 20 mg tablet TAKE 1 TABLET BY MOUTH AT BEDTIME active metformin 1,000 mg tablet TAKE 1 TABLET BY MOUTH TWICE DAILY AT NOON AND IN THE EVENING active Procto-Med HC 2.5 % topical cream perineal applicator INSERT 1 APPLICATORFUL RECTALLY TWICE DAILY NEEDED FOR PAIN active methocarbamol 750 mg tablet TAKE 1 TABLET BY MOUTH EVERY TWELVE HOURS active imipramine 10 mg tablet TAKE 1 TABLET BY MOUTH AT BEDTIME active testosterone cypionate 200 mg/mL intramuscular oil INJECT 0.7 ML (140 MG) INTRAMUSCULARLY EVERY 2 WEEKS active Problems Problem Status Onset Date Problem Type Date of Resoluti on Source Diabetic peripheral neuropathy active 2024-08-31 Problem[address] [facility]_SONE
--- OUTSIDE RECORDS SUMMARY | 2024-09-15 07:22 | XMS_ITS | Encounter Summary ---
Author Organization [employer] [facility] Address [address] [facility] 7t [place] [address] Care Team Providers Care Yeast Cake Cutter Name Role Phone Audrey Smith MD Primary Care Provide r Encounter Details Date Type Department Care Team (Late st Contact Info) Description 03/27/2023 Orders Only [facility] [address] [place] [address] ProviderNatasha MD Social History Tobacco Use Types [...] Description 09/17/2024 10:00 AM EST Office Visit [facility] [address] [place] [phone] Audrey Smith MD [address] [place] [phone] documented as of this encounter Procedures Procedure [...] EDT Narrative 03/30/2023 11:21 AM EDT ? [facility] ?[address] ?[place] [address] ?XRay Report ? Signed ? Patient: Rio Hurd,Owen ?MR#: ?? [id number] ? : 1970 ?Acct:[id number] ? Age/Sex: 52 / M ?ADM Date: 03/30/23 ? Loc: HO.ED ? Attending Dr: ? Ordering Physician: Ada Mcintosh NP ?? Date of Service: 03/30/23 ?? Procedure(s): XR hip RT w PEL1V ?? Accession Number(s): [id number] ? cc: Audrey Smith MD; Ada Mcintosh [...] 1117 ? DD/ 1046 ? TD/TT: ? Commercial Green Building Architect: ? Procedure Note Leigh Breen - 03/30/[address] [address] XRay Report Signed Patient: Owen MontanoMR#: [id number] : 1970Acct:[id number] Age/Sex: 52 / MADM Date: 03/30/23 Loc: HO.ED Attending Dr: Ordering Physician: Ada Mcintosh NP Date of Service: 03/30/23 Procedure(s): XR hip RT w PEL1V Accession Number(s): [id number] cc: Audrey Smith MD; Ada Mcintosh NP [...] in OV> 03/30/23 1117 DD/ 1046 TD/TT: Commercial Green Building Architect: [facility] External Provider IMG XR PROCEDURES Final Result * Hm Colonoscopy (05/22/2021) Historical Provider HEALTH MAINTENANCE Final Result documented in this encounter Visit Diagnoses Not on filedocumented in this encounter Care Teams Yeast Cake Cutter Relationship Specialty Start Date End Date Audrey Smith MD [address] [place] [phone] PCP - General Family Medicine 11/20/17 documented as of this encounter
--- OUTSIDE RECORDS SUMMARY | 2024-09-15 07:22 | XMS_ITS | Clinical Summary ---
Author Organization [facility] Address [address] [place] [address] Care Team Providers Care Education Program Coordinator Name Role Phone Unavailable Primary Care Provider [...]
--- OUTSIDE RECORDS SUMMARY | 2024-09-15 07:23 | XMS_ITS | Encounter Summary ---
Author Organization [facility] Address [address] [place] [address] Care Team Providers Care Tooth Cutter Contact Wheel Name Role Phone Audrey Smith MD Primary Care Provide r Reason for Referral * Pain Management (Routine) - Closed Specialty Diagnoses / Procedures Referred By Contac t Referred To Contact Pain Medicine Diagnoses Type 2 diabetes mellitus with diabetic polyneuropathy (CMS/HCC) Procedures Insertion stimulator spinal cord trial Rock Parsons MD [address] [place] [address] Phone: tel: fax: Referral ID Status Reason Start Date Expiration Date Visits Re quested Visits Authorized [id number] Closed 08/12/2024 08/12/2025 1 1 Reason for Visit * Pain Management (Routine) - Closed Specialty Diagnoses / Procedures Referred By Contac t Referred To Contact Pain Medicine Diagnoses Type 2 diabetes mellitus with diabetic polyneuropathy (CMS/HCC) Procedures Insertion stimulator spinal cord trial Rock Parsons MD [address] [place] [address] Phone: tel: fax: Referral ID Status Reason Start Date Expiration Date Visits Re quested Visits Authorized [id number] Closed 08/12/2024 08/12/2025 1 1 Encounter Details Date Type Department Care Team (Latest Contact Info) Description 08/24/2024 7:08 AM EST - 08/24/2024 11:59 PM EST Hospital Encounter [facility] [address] [place] [phone] Rock Parsons MD [address] [place] [phone] Jonatan Alvarado DO [address] [place], [place] [phone] Юлия Marmolejo CRNA [address] [place], [place] [phone] Type 2 diabetes mellitus with diabetic polyneuropathy, unspecified whether chcf insulin use (CMS/HCC) [E11.42] (Primary Dx); Type 2 diabetes mellitus with diabetic polyneuropathy (CMS/[facility]); Peripheral polyneuropathy [G62.9] Discharge Disposition: [...] be sent through Care Everywhere. * Sedation (Turkmen) * Spinal Cord Stimulation: General Info (Turkmen) * Spinal Cord Stimulation: General Info (Mohawk) documented in this encounter Medications at Time [...] - 08/24/2024 8:00 AM EST SUNG BURRIS-FRIEND [phone] * Marcelle Laurent RN - 08/24/2024 8:[address] Parsons and spinal cord stimulator rep at bedside reviewing dc instructions and spinal stimulator instructions. * Marcelle Laurent RN - 08/24/2024 8:00 AM EST Pt standing at bedside. Rep working w/pt on settings of spinal stimulator w/polish video manager flight. * Marcelle Laurent RN - 08/24/2024 8:00 AM EST All questions answered pt and drilling engineering manager verbalized understanding of all instructions. * Rock [...] T12 vertebral body). The spinal cord stimulator exhibit display representative was on hand to perform with [...] neuroelectrodes to the patient's back and the exhibit display representative explained further programming with the patient, [...] AM EDT Office Visit Orthopedic Surgery - [place] [address] [phone] Aaron Graves, DPM [address] [address] Scheduled Orders Name Type Priority Associated Diagnoses Orde r Schedule Insertion stimulator spinal cord trial Procedures Routine Type 2 diabetes mellitus with diabetic polyneuropathy ([facility]) Once for 1 Occurrences starting [...] 08/24/2024 7:27 AM EST us Юлия Marmolejo QUALITY ASSURANCE CALIBRATOR LAB POINT OF CARE TE ST DOCKED DEVICE UNSOLICITED RESULTS Final Result [facility] [address] [place] [address], documented in this encounter Visit Diagnoses Diagnosis Type 2 diabetes mellitus with diabetic polyneuropathy, unspecified whether manager intermediate insulin use (CMS/[facility]) [E11.42]- Primary Peripheral polyneuropathy [G62.9] [...] day. added in this encounter Care Teams Tooth Cutter Contact Wheel Relationship Specialty Start Date End Date Audrey Smith MD [address] [phone] PCP - General 07/01/23 documented as of this encounter
--- OUTSIDE RECORDS SUMMARY | 2024-09-15 07:23 | XMS_ITS | Clinical Summary ---
Author Organization [employer] Address [address] [facility] 7t [place] [address] Care Team Providers Care Manager Commercial Name Role Phone Audrey Smith MD Primary [...] MOUTH EVERYDAY AT NOON 023 Active Zenpep 5000-32938 units capsule delayed-release particles capsule Take 1 [...] Take 20 mg by mouth at bedtime. Active sertraline (Zoloft) 50 MG tablet TAKE 1 TABLET BY MOUTH EVERYDAY AT NOON Active B-D 3CC LUER-CHRISTINE SYR 65XB7-3/2 21G X 1-2 3 ML misc USE DIRECTED Active tamsulosin (Flomax) 0.4 MG 24 hr capsule Take 0.4 mg by mouth at bedtime. Active testosterone cypionate (Depo-Testostero ne) 200 MG/ML injection INJECT 0.7 ML (140MG) INTRAMUSCULARLY EVERY 2 WEEKS Active ibuprofen 600 MG tablet TAKE 1 TABLET BY MOUTH THREE TIMES DAILY WITH FOOD 30 tablet Active lidocaine (Lidoderm) 5 % patch APPLY 1 PATCH TOPICALLY TO SKIN, LEAVE ON FOR 12 HOURS AND OFF FOR 12 HOURS DIRECTED 30 patch 1 Active TRUEplus Lancets 33G miscIndications: Type 2 diabetes mellitus with other specified complication, without long-term current use of insulin (CMS/[facility]) TEST BLOOD SUGAR TWICE DAILY 100 each 11 Active Blood Glucose Monitoring Suppl (FreeStyle Lite) w/Device kitIndications:T ype 2 diabetes mellitus with hyperglycemia, without long-term current use of insulin (CMS/HCC) 1 kit 2 times daily. 1 kit Active FREESTYLE LITE test stripIndications :Type 2 diabetes mellitus with hyperglycemia, without long-term current use of insulin (CMS/[facility]) TEST BLOOD SUGAR TWICE DAILY 50 strip 11 Active sertraline (Zoloft) 100 MG tablet TAKE 2 TABLETS BY MOUTH ONCE DAILY AT NOON Active methocarbamol (Robaxin) 750 MG tablet TAKE 1 TABLET BY MOUTH EVERY TWELVE HOURS Active imipramine (Tofranil) 10 MG tablet Take 10 mg by mouth at bedtime. Active LORazepam (Ativan) 2 MG tablet Take 2 mg by mouth at bedtime. Active fexofenadine (Mila) 180 MG tablet TAKE [...] MG EC tabletIndication s:Coronary artery disease involving [place] coronary artery of [place] heart, unspecified whether angina present TAKE 1 TABLET BY MOUTH EVERYDAY AT NOON 90 tablet 1 024 Active clopidogrel (Plavix) 75 MG tabletIndication s:Coronary artery disease involving [place] coronary artery of [place] heart, unspecified whether angina present TAKE 1 [...] 24 hr tabletIndication s:Coronary artery disease involving [place] coronary artery of [place] heart, unspecified whether angina present TAKE 1 [...] 2 diabetes mellitus without complication, unspecified whether intermediate frame tender insulin use (CMS/HCC) TAKE 1 TABLET BY [...] of colon 11/20/2017 Hyperuricemia 11/20/2017 CAD in [place] artery 11/20/2017 Benign prostatic hyperplasia with nocturia [...] will continue with same medications, I extensibly student financial services counselor him about diabetic diet and let him know his glucose also will likely go down after back injections wears out - Encounters Date Type Department Care Team Description 09/03/2024 Patient Outreach [facility] [address] [place] [phone] Audrey Smith MD Pre-visit Planning (SDOH screening negative and tobacco screening negative) 08/30/2024 Orders Only GENERIC EXTERNAL DATA DEPARTMENT Provider, Generic External Data 08/26/2024 Orders Only [facility] [address] [place] [address] Audrey Smith MD Type 2 diabetes mellitus with hyperglycemia, without long-term current use of insulin ([facility]) (Primary Dx) 08/26/2024 Refill [facility] [address] [place], [place] [phone] Audrey Smith MD Diabetic polyneuropathy associated with type 2 diabetes mellitus (CMS/HCC) 08/25/2024 Orders Only GENERIC EXTERNAL DATA DEPARTMENT Provider, Generic External Data 08/01/2024 Refill [facility] [address] [place] [address] Audrey Smith MD Type 2 diabetes mellitus without complication, unspecified whether intermediate frame tender insulin use ([facility]) 07/29/2024 Refill [facility] [address] [place] [address] Audrey Smith MD Muscle spasm 07/26/2024 Telephone [facility] [address] [place], [place] [phone] Audrey Smith MD Med Refill 07/09/2024 Telephone [facility] [address] [place], [place] [phone] Audrey Smith MD Prior Authorization ( [place] Request: [employer]) 06/27/2024 Refill [facility] [address] [place], [place] [phone] Audrey Smith MD Diabetic polyneuropathy associated with type 2 diabetes mellitus ([facility]) from Last 3 Months Immunizations Name Administration [...] Frequency of Binge Drinking Not on file 1107/2023 Score 0 05/21/2024 Depression Answer Date Recorded Patient Health Questionnaire-9 Score 0 05/21/2024 Patient Health Questionnaire-9 Score 0 05/21/2024 Last PHQ-9: Questionnaire Data Not on file 1 07/21/2023 Housing Stability Answer Date Recorded What is your housing situation today? I have catherine miguel 09/03/[address] you li ve. Do you have problems with any of the following? None of the above 09/03/2024 Food Insecurity Answer Date Recorded Within the past 12 months, y ou worried that your food would run out before you got money to buy more: Never True 09/03/2024 Within the past 12 months,th e food you bought just didn't last and you didn't have enough money to get more: Never True Transportation Answer Date Recorded In the past 12 months, has l ack of transportation kept you from medical appts, meetings, work or from getting things needed for daily living? No 09/03/2024 Utilities Answer Date Recorded In the past 12 months, has t he electric, gas, oil or water company threatened to shut off services in your home? No 09/03/2024 Depression Answer Date Recorded Patient Health Questionnaire-2 Score 0 05/21/2024 Internet Access Answer Date Recorded Internet Access Q1 Yes 09/03/2024 Internet Access Q2 Not on file 09/03/2024 Sex and Gender Information Value Date Recorded [...] 09/17/2024 10:00 AM EST Office Visit [facility] [address] [place], [place] [phone] Audrey Smith MD [address] [place] [address] Health Maintenance Due Date Last Done Comments CT Colonography 1970 FIT DNA/Cologuard 1970 FIT 1970 FOBT 1970 Sigmoidoscopy 1970 Diabetes: Foot Exam 11/07/1979 Hepatitis C Screening 11/07/1987 Hepatitis A Vaccines (1 of 2 - Risk 2-dose series) 1988 Colonoscopy 05/22/2023 05/22/2021 Colorectal Cancer Screening 05/22/2023 Diabetes: Hemoglobin A1C 08/21/2024 024, 02/26/2024, 11/19/2023, Additional history exists Alcohol/Substance Use Screening 05/21/2025 05/21/2024 Depression Screening 05/21/2025 05/21/2024, 05/21/20 24 Tobacco Screening 05/21/2025 05/21/2024 Diabetes: Urine Protein Screening 06/02/2025 06/02/2024, 12/26/2022, 12/07/2021, Additional history exists Lipid Panel 08/25/2025 08/25/2024, 05/21, 12/03/2023, Additional history exists SDOH Screening 09/03/2025 09/03/2024 Eye Exam 01/05/2026 01/06/2024, 12/19, 01/06/2024, Additional [...] PANEL, STANDARD Routine 08/25/2024 7:10 AM EST ALBUMIN, RANDOM URINE W/CREATININE Routine 06/02/2024 8:55 AM EST Type 2 diabetes mellitus with hyperglycemia, without long-term current use of insulin ([facility]) POCT GLYCATED HEMOGLOBIN, TOTAL Routine 05/21/2024 9:37 AM EDT Type 2 diabetes mellitus with hyperglycemia, without long-term current use of insulin ([facility]) HM COLONOSCOPY Routine 05/22/2021 ZZZ HISTORICAL HIV AB/AG Routine 10/01/2019 10:28 AM EDT from Last 3 Months or Most Recently Relevant to Health Maintenance Results * Hematoxylin and Eosin Stain (08/30/2024 12:43 PM EST) 08/30/2024 12:4 3 PM EST 08/30/2024 1:14 PM EST [facility] - 08/31/2024 3:23 PM EST ----- ------- Name: Owen Montano ?Age/Sex: 53/M ? : 1970 Unit#: [id number] ?? Attend Dr: Francesca Leyva MD ?Re08/30/24 ?Status: DEP SDC ? Location: HO.SSS ?Disch: ? ----- ------- SPEC : [id number] ?RECD: 08/30/24-1313 ? STATUS: ??SOUT ? REQ NUM: [id number] ? JUAN FRANCISCO: 08/30/24-1243 ? SUBM DR: Francesca Leyva MD ? ENTERED: ??08/30/24 ?SP TYPE: Surgical ? OTHR DR: Audrey [...] microscopic examination, 2 pieces in cassette [facility] Copies To: ?? Audrey Smith MD ?? [facility] ?? [address] ?? [place] [address] ?? [phone] ?? Francesca Leyva MD ?? [facility] ?? [address] ?? [place] [address] ?? [phone] ----- ------- Signed (signature on file) Samantha Olson MD 08/31/24 1523 ? ----- ------- ? END OF REPORT ? Generic External Data Provider LAB BLOOD ORDERAB LES Final Result Performing Organization Address [facility] Phone Number [facility] [address] [place] [phone] * (ABNORMAL) Glucose, Whole Blood (08/30/2024 11:15 AM EST) Glucose, Whole Blood 134(H) 60 - 115 mg/dL [facility] Comment:METER #: [id number] 08/30/2024 11:1 5 AM EST 08/30/2024 11:21 AM EST Generic External Data Provider LAB BLOOD ORDERAB LES Final Result Performing Organization Address [facility] Phone Number [facility] [address] [place] [address] [phone] * (ABNORMAL) Lipid Panel, Standard (08/25/2024 7:10 AM EST) Triglycerides 181(H) <150 mg/dL [facility] Comment:Desirable Triglyceri de: less than 150 mg/dLBorderline High Triglyceride 150-199 mg/dLHigh Triglyceride: 200-499 mg/dLVery High Triglyceride: greater than or equal to 5OO mg/dL Cholesterol 142 <200 mg/dL [facility] Comment:Desirable Cholestero l: less than 200 mg/dLBorderline High Cholesterol: 200-239 mg/dLHigh Cholesterol: greater than 239 mg/dL LDL Cholesterol Calculated 68 <100 mg/dL [facility] Comment:Desirable LDL: less than 100 mg/dLNear Optimal/Above Optimal LDL: 110- 129 mg/dLBorderline High LDL: 130-159 mg/dLHigh LDL: 160-189 mg/dLVery High LDL: greater than or equal to 190 mg/dL HDL Cholesterol 38(L) >40 mg/dL [facility] Comment:Desirable HDL: great er than 40 mg/dL Note: This HDL assay may give artificially low results in patients with liver disease. 08/25/2024 7:10 AM EST 08/25/2024 7:10 AM EST us Generic External Data Provider LAB BLOOD ORDERAB LES Final Result Performing Organization Address [facility]/ZIP Co de Phone Number [facility] [address] [place] [phone] * Albumin, Random Urine W/Creatinine (06/02/2024 8:55 AM EST) Creatinine, Urine 107.27 mg/dL [facility] Microalbumin Urine <5.0 mg/L [facility] Microalbum Creatinine Ratio Ur TNP <30 ug/mg cr [facility] Comment:Unable to calculate albumin/creatinine ratio due to lowmicroalbumin or creatinine result. Urine (Urine, Random) 06/02/2024 8:55 AM EST 06/02/2024 10:47 AM EST us Audrey Holman MD LAB URINE ORDERABLES Final Result Performing Organization Address [facility] Co de Phone Number [facility] [address] [place] [phone] * (ABNORMAL) POCT HGB A1C (05/21/2024 9:37 AM EDT) Hemoglobin A1C 7.3(A) 4.0 - 6.0 % QC Media Lot # [id number] Lot# Expiration Date [id number] Blood 05/21/2024 9:37 AM EDT Result [facility] Audrey Holman MD POINT OF CARE TEST EN TER/EDIT ORDERABLES Final Result * Hm Colonoscopy (05/22/2021) Result [facility] Historical Provider MD HEALTH MAINTENANCE Final Result * HIV AB/AG (10/01/2019 10:28 AM EDT) HIV AG/AB NONREACTIVE NR FOUNDATI ON LAB [...] detection of this assay. ?? The [employer]ou[employer] HIV Ag/Ab Combo assay result and supplemental assay results should be interpreted in conjunction with the patient's clinical presentation, history and other laboratory results. ??If the results are inconsistent with clinical evidence, additional testing is suggested to confirm the result. 10/01/2019 10:2 8 AM EDT Result [facility] Audrey Holman MD HISTORICAL/NON ORDERA BLE LABS Final Result [facility] [address] from Last 3 Months or Most Recently Relevant to Health Maintenance Insurance [facility] C3 Care Teams Manager Commercial Relationship Specialty Start Date End Date Audrey Smith MD [address] [place] [phone] PCP - General Family Medicine 11/20/17
--- OUTSIDE RECORDS SUMMARY | 2024-09-15 07:23 | XMS_ITS | Encounter Summary ---
Author Organization [employer] Address [address] [facility] 7t [place] [address] Care Team Providers Care Appointment Scheduler Name Role Phone Audrey Smith MD Primary Care Provide r Reason for Visit * Reason Onset Date Comments Med Refill 07/26/2024 Encounter Details Date Type Department Care Team ([facility] st Contact Info) Description 07/26/2024 Telephone [facility] [address] [place] [address] Audrey Smith MD 230 [place] [address] Med Refill Social History Tobacco Use Types [...] 4:18 PM EST TC placed to patient [phone] via [employer] ([employer] #[id number]) in regards to below message. Patient advised [...] Description 09/17/2024 10:00 AM EST Office Visit [facility] [address] [place] [phone] Audrey Smith MD [address] [place] [address] documented as of this encounter Visit Diagnoses Not on filedocumented in this encounter Additional Health Concerns Assessment Noted Time PHQ-9 Depression Total Score: 0 05/21/20 24 9:38 AM EDT documented as of this encounter Care Teams Appointment Scheduler Relationship Specialty Start Date End Date Audrey Smith MD 230 [place] [address] PCP - General Family Medicine 11/20/17 documented as of this encounter
--- OUTSIDE RECORDS SUMMARY | 2024-09-15 07:23 | XMS_ITS | Encounter Summary ---
Author Organization [facility] Address [address] [facility] 7t [place] [address] Care Team Providers Care Police Sergeant Precinct Name Role Phone Audrey Smith MD Primary Care Provide r Encounter Details Date Type Department Care Team (Late st Contact Info) Description 08/30/2022 Orders Only [facility] [address] [place] [phone] Vane Cervantes MD [address] [place] [phone] Muscle spasm (Primary Dx) Social History Tobacco [...] Description 09/17/2024 10:00 AM EST Office Visit [facility] [address] [place] [phone] Audrey Smith MD [address] [place] [phone] documented as of this encounter Visit Diagnoses Diagnosis Muscle spasm- Primary Spasm of muscle documented in this encounter Care Teams Police Sergeant Precinct Relationship Specialty Start Date End Date Audrey Smith MD [address] [place] [phone] PCP - General Family Medicine 11/20/17 documented as of this encounter
--- OUTSIDE RECORDS SUMMARY | 2024-09-15 07:23 | XMS_ITS | Encounter Summary ---
Author Organization [employer] Address [address] [facility] [address] 7t [place] [address] Care Team Providers Care Sugar Refinery Supervisor Name Role Phone Audrey Smith MD Primary Care Provide r Encounter Details Date Type Department Care Team ([facility] st Contact Info) Description 08/30/2024 Orders Only [...] 10:00 AM EST Office Visit [facility] [address] [place], [place] [phone] Audrey Smith MD 230 [place] [address] documented as of this encounter Procedures Procedure Name Priority Date/Time Associated Diagnosis Comments HEMATOXYLIN AND EOSIN STAIN Routine 08/30/2024 12:43 PM EST GLUCOSE, WHOLE BLOOD Routine 08/30/2024 11:15 AM EST documented in this encounter Results * Hematoxylin and Eosin Stain (08/30/2024 12:43 PM EST) 08/30/2024 12:4 3 PM EST 08/30/2024 1:14 PM EST [facility] - 08/31/2024 3:23 PM EST ----- ------- Name: Owen Montano ?Age/Sex: 53/M ? : 1970 Unit#: [id number] ?? Attend Dr: Francesca Leyva MD ?Re08/30/24 ?Status: DEP SDC ? Location: HO.SSS ?Disch: ? ----- ------- SPEC : [id number] ?RECD: 08/30/24-1313 ? STATUS: ??SOUT ? REQ NUM: [id number] ? JUAN FRANCISCO: 08/30/24-1243 ? SUBM DR: Francesca Leyva MD ? ENTERED: ??08/30/24-7484 ?SP TYPE: Surgical ? OTHR DR: Audrey [...] microscopic examination, 2 pieces in cassette [facility] Copies To: ?? Audrey Smith MD ?? [facility] ?? [address] ?? [place] [address] ?? [phone] ?? Francesca Leyva MD ?? [facility] Gastroenterology Services ?? [address] ?? [place] [address] ?? [phone] ----- ------- Signed (signature on file) Samantha Olson MD 08/31/24 1523 ? ----- ------- ? END OF REPORT ? us Generic External Data Provider LAB BLOOD ORDERAB LES Final Result Performing Organization Address City/State/[facility] Co de Phone Number [facility] [address] [place] [phone] [phone] * (ABNORMAL) Glucose, Whole Blood (08/30/2024 11:15 AM EST) Glucose, Whole Blood 134(H) 60 - 115 mg/dL [facility] Comment:METER #: [id number] 08/30/2024 11:1 5 AM EST 08/30/2024 11:21 AM EST us Generic External Data Provider LAB BLOOD ORDERAB LES Final Result Performing Organization Address [facility] Co de Phone Number [facility] [address] [place] [phone] documented in this encounter Visit Diagnoses Not on filedocumented in this encounter Additional Health Concerns Assessment Noted Time PHQ-9 Depression Total Score: 0 05/21/20 24 9:38 AM EDT documented as of this encounter Care Teams Sugar Refinery Supervisor Relationship Specialty Start Date End Date uAdrey Smith MD [address] [place] [phone] PCP - General Family Medicine 11/20/17 documented as of this encounter
--- OUTSIDE RECORDS SUMMARY | 2024-09-15 07:23 | XMS_ITS | Encounter Summary ---
Author Organization [employer] Address [address] [place] [address] 7t [place] [address] Care Team Providers Care Pilot Boat Operator Name Role Phone Audrey Smith MD Primary Care Provide r Encounter Details Date Type Department Care Team (Late st Contact Info) Description 10/10/2022 Orders Only [facility] [address] [place] [phone] Uzma Tyler LPN Social History Tobacco Use [...] Description 09/17/2024 10:00 AM EST Office Visit [facility] [address] [place] [phone] Audrey Smith MD [address] [place] [address] documented as of this encounter Visit Diagnoses Not on filedocumented in this encounter Care Teams Pilot Boat Operator Relationship Specialty Start Date End Date Audrey Smith MD [address] [place] [phone] PCP - General Family Medicine 11/20/17 documented as of this encounter
--- OUTSIDE RECORDS SUMMARY | 2024-09-15 07:23 | XMS_ITS | Encounter Summary ---
Author Organization [employer] Address [address] [facility] 7t [place] [address] Care Team Providers Care Brick Setter Operator Name Role Phone Audrey Smith MD Primary Care Provide r Reason for Visit * Reason Comments Med Refill Encounter Details Date Type Department Care Team ([facility] st Contact Info) Description 08/26/2024 Refill [facility] [address] [place] [address] Audrey Smtih MD [address] [place] [address] Diabetic polyneuropathy associated with type 2 diabetes [...] Description 09/17/2024 10:00 AM EST Office Visit [facility] [address] [place] [address] Audrey Smith MD [address] [place] [address] documented as of this encounter Visit Diagnoses Diagnosis Diabetic polyneuropathy associated with type 2 diabetes mellitus (CMS/HCC) documented in this encounter Additional Health Concerns Assessment Noted Time PHQ-9 Depression Total Score: 0 05/21/20 24 9:38 AM EDT documented as of this encounter Care Teams Brick Setter Operator Relationship Specialty Start Date End Date Audrey Smith MD [address] [place] [address] PCP - General Family Medicine 11/20/17 documented as of this encounter
--- OUTSIDE RECORDS SUMMARY | 2024-09-15 07:23 | XMS_ITS | Encounter Summary ---
Author Organization [employer] Address [address] [facility]t [place] [address] Care Team Providers Care Mule Developer Name Role Phone Audrey Smith MD Primary Care Provide r Encounter Details Date Type Department Care Team ([facility] st Contact Info) Description 08/25/2024 Orders [...] Description 09/17/2024 10:00 AM EST Office Visit [facility] [address] [place] [address] Audrey Smith MD 230 [place] [address] documented as of this encounter Procedures Procedure Name Priority Date/Time Associated Diagnosis Comments LIPID PANEL, STANDARD Routine 08/25/2024 7:10 AM EST documented in this encounter Results * (ABNORMAL) Lipid Panel, Standard (08/25/2024 7:10 AM EST) Triglycerides 181(H) <150 mg/dL [facility] Comment:Desirable Triglyceri de: less than 150 mg/dLBorderline High Triglyceride 150-199 mg/dLHigh Triglyceride: 200-499 mg/dLVery High Triglyceride: greater than or equal to 5OO mg/dL Cholesterol 142 <200 mg/dL [facility] Comment:Desirable Cholestero l: less than 200 mg/dLBorderline High Cholesterol: 200-239 mg/dLHigh Cholesterol: greater than 239 mg/dL LDL Cholesterol Calculated 68 <100 mg/dL [facility] Comment:Desirable LDL: less than 100 mg/dLNear Optimal/Above Optimal LDL: 110- 129 mg/dLBorderline High LDL: 130-159 mg/dLHigh LDL: 160-189 mg/dLVery High LDL: greater than or equal to 190 mg/dL HDL Cholesterol 38(L) >40 mg/dL [facility] Comment:Desirable HDL: great er than 40 mg/dL Note: This HDL assay may give artificially low results in patients with liver disease. 08/25/2024 7:10 AM EST 08/25/2024 7:10 AM EST us Generic External Data Provider LAB BLOOD ORDERAB LES Final Result Performing Organization Address City/State/[facility] Co de Phone Number [facility] [address] [place] [phone] documented in this encounter Visit Diagnoses Not on filedocumented in this encounter Additional Health Concerns Assessment Noted Time PHQ-9 Depression Total Score: 0 05/21/20 24 9:38 AM EDT documented as of this encounter Care Teams Mule Developer Relationship Specialty Start Date End Date Audrey Smith MD [address] [place] [address] PCP - General Family Medicine 11/20/17 documented as of this encounter
--- OUTSIDE RECORDS SUMMARY | 2024-09-15 07:23 | XMS_ITS | Encounter Summary ---
Author Organization [employer] Address [address] [facility] [address] [place] [address] Care Team Providers Care Heading Machine Operator Name Role Phone Audrey Smith MD Primary Care Provide r Encounter Details Date Type Department Care Team (Late st Contact Info) Description 08/26/2024 Orders Only [facility] [address] [place] [address] Audrey Smith MD [address] [place] [address] Type 2 diabetes mellitus with hyperglycemia, without long-term current use of insulin ([facility]) (Primary Dx) Social History Tobacco Use Types [...] Description 09/17/2024 10:00 AM EST Office Visit [facility] [address] [place] [address] Audrey Smith MD [address] [place] [address] documented as of this encounter Visit Diagnoses Diagnosis Type 2 diabetes mellitus with hyperglycemia, without long-term current use of insulin ([facility])- Primary documented in this encounter Additional Health Concerns Assessment Noted Time PHQ-9 Depression Total Score: 0 05/21/20 24 9:38 AM EDT documented as of this encounter Care Teams Heading Machine Operator Relationship Specialty Start Date End Date Audrey Smith MD 230 [place] [address] PCP - General Family Medicine 11/20/17 documented as of this encounter
--- OUTSIDE RECORDS SUMMARY | 2024-09-15 07:23 | XMS_ITS | Clinical Summary ---
Author Organization [address] [facility] Address [address] [place] [address] Phone Care Team Providers Care Light Rail Transit Operator Name Role Phone Audrey Smith MD [...] 08/24/19 25 Discontinue d(Stop Taking at Discharge) Active Problems Problem Noted Date Diagnosed Date Diabetic neuropathy, painful 09/14/2024 Assessment & Plan (09/14/2024 4:44 PM EST): I reviewed the steps involved in placement of the spinal cord stimulator leads and generator with the patient in conjunction with Sarbjit the security representative from [employer] and a mechanical car checker. I demonstrated the position of each incision on his body and we talked extensively about what to expect in terms of improvement specifically, that it should match his results from the trial, we discussed the anticipated postoperative course in terms of lifting and climbing stairs and how soon afterwards he would be able to travel and potentially go in the water. Establish the plan that Dr. Parsons will place stimulator leads at T12-L1 and we will tunnel to a rechargeable generator pocket on his left side. All questions were answered and he wishes to proceed. Encounters Date Type Department Care Team Description 09/14/2024 3:15 PM EST Office Visit Neurosurgery [facility] [address] [facility] [address] [place] [address] Cara Davenport MD Diabetic neuropathy, painful (CMS/HCC) (Primary Dx) 08/24/2024 9:47 AM EST Anesthesia Event [facility] [address] [place] [address] Jonatan Alvarado DO 08/24/2024 7:08 AM EST - 08/24/2024 11:59 PM EST Hospital Encounter [facility] [address] [place] [phone] Rock Parsons MD Walsh, Michael, DO Weiss, Ashley, CRNA Type 2 diabetes mellitus with diabetic polyneuropathy, unspecified whether usp insulin use ([facility]) [E11.42] (Primary Dx); Type 2 diabetes mellitus with diabetic polyneuropathy ([facility]); Peripheral polyneuropathy [G62.9] Discharge Disposition: Home or Self Care 08/24/2024 6:05 AM EST - 08/24/2024 11:59 PM EST Hospital Encounter [facility] Xray [address] [place] [phone] Pain Discharge Disposition: Home or Self Care 06/30/2024 9:15 AM EST Office Visit Orthopedic Surgery - [place] 250 175 [facility] [address] [place] [phone] Aaron Graves DPM Diabetic mononeuropathy simplex ([facility]) (Primary Dx); Primary osteoarthritis of both feet from Last 3 Months Immunizations Name Administration Dates Next Due COVID-19 (Moderna/Spikevax) 12yo and older 07/10 Pfizer (ages 12 & older) ADDY S-CoV-2 COVID-19, mRNA, LNP-S, jenny-sucrose, preservative free 10/31/2021 Surgical History Surgery Date Site/Laterality Comments CORONARY ANGIOPLASTY WITH STENT PLACEMENT ABSCESS DRAINAGE RIGHT ARM/RIGHT FOOT Medical History Medical History Date Comments Diabetes mellitus ([facility]) DX:D iabetes mellitus ([facility]) Hypertension DX:Hypertension Disease of thyroid gland DX:Dise [...] AM EDT Office Visit [facility] [place] [address] [phone] Aaron Graves, DPM [address] [address] Health Maintenance Due Date Last Done Comments [...] Tdap) 03/16/2028 03/16/2018 Cholesterol Screening (Lipid Panel) 08/25/2029 08/25/2024, 06/02/2024 Hepatitis B Vaccines Completed 12/07/2020, 01/25/2019, [...] this topic Medical Devices Implanted Type Area Plastic Design Applier Device Identifier Shelf Expiration Date Model / Serial / Lot Lead Linear Trial St - [id number] - [id number] Implanted:Qty: 1 on 08/24/2024 by Rock Parsons MD at [facility] Neurostim Right: Back [employer] 03/23/2026 [id number] / [id number] / [id number] Lead Linear Trial St - [id number] - [id number] Implanted:Qty: 1 on 08/24/2024 by Rock Parsons MD at [facility] Neurostim Left: Back [employer] 03/15/2026 [id number] / [id number] / [id number] Procedures Procedure Name Priority Date/Time Associated Diagnosis [...] Signed Date: 08/24/2024 13:23 ET Workstation ID: [id number] Transcribed By: Self Edit Transcribed Date: 08/24/2024 [...] Signed Date: 08/24/2024 13:23 ET Workstation ID: [id number] Transcribed By: Self Edit Transcribed Date: 08/24/2024 13:23 ET us Rock Parsons MD IMG FLUOROSCOPY PROCEDURES Fin al Result * (ABNORMAL) POCT Glucose, blood (08/24/2024 7:25 AM EST) Glucose POCT 145(H) 70 - 100 mg/dL 08/24/2024 7:26 AM EST [facility] Blood Capillary blood specimen / Unknown 08/24/2024 7:25 AM EST 08/24/2024 7:27 AM EST Юлия Marmolejo STRUCTURAL METAL FABRICATOR APPRENTICE LAB POINT OF CARE TE ST DOCKED DEVICE UNSOLICITED RESULTS Final Result [facility] ([facility] [address] [place] [address], [place] [phone] from Last 3 Months Insurance MEDICAID - [place] Care Teams Light Rail Transit Operator Relationship Specialty Start Date End Date Audrey Smith MD [address] [phone] PCP - General 07/01/23
--- OUTSIDE RECORDS SUMMARY | 2024-09-15 07:23 | XMS_ITS | Encounter Summary ---
Author Organization [employer] Address 75 [facility] 7t [place] [address] Care Team Providers Care Window Repairer Name Role Phone Audrey Smith MD Primary Care Provide r Reason for Visit * Reason Comments Pre-visit Planning SDOH screening negat hernan and tobacco screening negative Encounter Details Date Type Department Care Team ([facility] st Contact Info) Description 09/03/2024 Patient Outreach [facility] [address] [place] [address] Audrey Smith MD [address] [place] [address] Pre-visit Planning (SDOH screening negative and tobacco screening negative) Social History Tobacco Use Types Packs/Day Years [...] AM EDT documented as of this encounter Progress Notes * Trinh Durán - 09/03/2024 8:56 AM EST CC Trinh placed successful outbound call to patient for pre-visit planning. Patient name and confirmed. Patient confirms appt date and time, and has transportation. Biggest concern for appointment at this time is none Patient advised to bring to appointment a photo id and insurance card. Appropriate screenings completed in anticipation of appointment. documented in this encounter Plan of Treatment Upcoming Encounters Date Type Department Care Team (Late st Contact Info) Description 09/17/2024 10:00 AM EST Office Visit [facility] [address] [place], [place] [phone] Audrey Smith MD [address] [place] [address] documented as of this encounter Visit Diagnoses Not on filedocumented in this encounter Additional Health Concerns Assessment Noted Time PHQ-9 Depression Total Score: 0 05/21/20 24 9:38 AM EDT documented as of this encounter Care Teams Window Repairer Relationship Specialty Start Date End Date Audrey Smith MD [address] [place] [address] PCP - General Family Medicine 11/20/17 documented as of this encounter
--- OUTSIDE RECORDS SUMMARY | 2024-09-15 07:23 | XMS_ITS | Encounter Summary ---
Author Organization [employer] Address 75 [facility] 7t [place] [address] Care Team Providers Care Sheet Metal Roofer Name Role Phone Audrey Smith MD Primary Care Provide r Reason for Visit * Reason Comments Med Refill Encounter Details Date Type Department Care Team (Late st Contact Info) Description 01/10/2023 Refill [facility] [address] [place] [address] [phone] Name, MD Sameer [address] [place] [address] [phone] Social History Tobacco Use Types Packs/Day Years [...] 09/17/2024 10:00 AM EST Office Visit [facility] [address] [place] [address] [phone] Audrey Smith MD [address] [place] [address] [phone] documented as of this encounter Visit Diagnoses Not on filedocumented in this encounter Care Teams Sheet Metal Roofer Relationship Specialty Start Date End Date Audrey Smtih MD [address] [place] [address] PCP - General Family Medicine 11/20/17 documented as of this encounter
--- OUTSIDE RECORDS SUMMARY | 2024-09-15 07:23 | XMS_ITS | Data Portability ---
Author Organization [facility] [employer]. [facility], [id number] Address [address] [facility] [address] [place] [address] Care Team Providers Care Hydraulic Riveter Name Role Phone ADRI REDDY Referring Provider MAINE MORELAND Supervisor [employer] [phone] FREDY MORENO Psychiatrist Assessment No assessment recorded. [...] Organization Detail LastModifiedTime 08/24/19 25 08/24/2024 proce charleses No observ ation record ed. [email or web address] [address], [address], 08/25/2024 09:45:35 08/24/1908/24/2024 xr fluor o up to 1 hour See Note [facility] , a member of [employer] [facility] Name: OWEN TUCKER LINDA LILIA Date of : 1970 Reason for Exam: pain Exam Date: 2024 [id number] EST Report Status : Final Orderi ng Provid er: ROCK BALDERAS PCP: SUNNY Browne gs: Fluoro scopy was provid ed for Dr. Balderas during a pain manage ment proced ure. No radiol ogist was in attend ance. Cumula tive Dose: 20.61 mGy IMPRES [place]: Impres [place]: Fluoro scopy provid ed by the Depart ment of Radiol ogy during a pain manage ment proced ure. [place] ------ -- FINAL REPORT ------ -- Dictat ed By: Linda Kaba Dictat ed Date: 2024 13:23 ET Assign ed Physic kristan: Linda Kaba Review ed and Electr onical ly Signed By: Linda Kaba Signed Date: 2024 13:23 ET Workst ation ID: [id number] Transc ribed By: Self Edit Transc ribed Date: 2024 13:[address], [address], 08/25/2024 09:45:35 Result Notes None recorded. Problems Name Problem SNOMED Code Status Onset Date Resolution Date Notes Provider Name and Address Organization Details Recorded Time Diabetic peripheral neuropathy 966617440 Active 025 Rock Balderas MD [facility], [place] [facility] 11:30:01 Problem Notes None recorded. Procedures Surgical History None recorded. Imaging Results Imaging Date Name Status LastModified by Organiz ation Details LastModified Time 08/24/2024 procedures completed [address], [address], 08/25/2024 09:45:35 08/24/2024 xr fluoro up to 1 hour completed [address], [address], 08/25/2024 09:45:35 Procedure Notes None recorded. Medical Equipment None Reported. Allergies Allergen ID Allergen Name Allergen Category Reaction Reaction Severity Criticality Documentation Date Start Date Code Code System Note Provider Name and Address Organization Details Recorded Time 68960 No Allergy Informati on Available Not available Not available Not available Not available 08/31/2024 74621 UNK Comme nt: shyanne e: Rere st e: Raymon en; ; Not Available [facility] 5 16:49:03 Medications Name Sig Start Date [...] Available No t Available BD Regular Bevel [place] 18 gauge x 1 USE WITH testosteron [...] Available Not Available No t Available FreeStyle [place] Lite kit USE TWICE DAILY active Not [...] SNOMED-CT Code Diagnosis ICD10 Code Diagnosis Note [id number] Rock Balderas MD [id number] A_[facility] ield [address] [address] 08/31/2024 09:37:10 08/31/2024 12:26:48 Diabetic peripheral neuropathy [id number] E11.40 -patient with long-stand ing history of [...] tomorrow -his current psychiatri st (Dr. Moreno-- [facility]--[phone] ) -will coordinate with Dr. Davenport for permanent SCS implant; will need to hold plavix prior to this procedure as well (Dr. Gary patel--[facility] ) -20 minutes was used for chart review, interviewi ng/examini ng, and counseling the patient during today's visit, and patient denies having any other further questions/ concerns Health Concerns Section Related Observation LastModified by Organization Detai ls LastModified Time None Recorded Concern Status LastModified by Organization Details LastModified Time None Recorded Advance Directives Directive None Recorded Payers Encounter Date Sequence Insurance Name Policy Number Policy Price Covered Member ID Price Member ID Guarantor Name 08/31/2024 1 [place]: [facility] Owen Hurd [id number] Owen Hurd Notes Date Note Type Note [...] Of note, patient is on PLAVIX (sees [facility]).? ? ?he reports that performing activities [...] applied to insertion sites. Rock Balderas MD [facility] [place] [facility] 08/31/2024 11:34:53
[2024-09-25 05:43] LABS: Testosterone, Total 935 ng/dL (250-1100)
== END 2024-09-15 07:19 | disposition home or self-care (01) ==
LOC: HO.LAB 07:18
PROVIDERS: PCP Internal Medicine; Visit Provider Urology
DX: E29.1 Testicular hypofunction (principal)
CPT/HCPCS: 36415; 84403

== ENCOUNTER 2024-11-02 15:30 | Outpatient (REF) | payer MEDICAID, SELFPAY ==
[2024-11-02 17:43] LABS: Folate 12.4 ng/mL (> or = 4.0); Vitamin B12 256 pg/mL (200-900)
--- OUTSIDE RECORDS SUMMARY | 2024-11-02 18:37 | XMS_ITS | Continuity of Care Document ---
Author Organization [facility], [id number] Address [address] [address] Care Team Providers Care Welding Machine Operator [employer] Name Role Phone ADRI REDDY Referring Provider [phone] MAINE MORELAND Interface Engineer [phone] FREDY MORENO Psychiatrist Assessment No assessment recorded. Plan of Treatment Reminders Order Date Submit Date Provider Last Modified By Organization Details Last Modified Time Details Appointments WAStefan Isabel 15 025 11:30AM Rock Parsons MD Not available Not available Not available Lab None record ed. Referral None record ed. Procedures None record ed. Surgeries None record ed. Imaging None record ed. Medication Orders None record ed. Patient TargetsNo targets recorded. Patient InstructionsNo instructions recorded. Reason for Referral None Reported. Problems Name Problem SNOMED Code Status Onset Date Resolution Date Notes Provider Name and Address Organization Details Recorded Time Diabetic peripheral neuropathy 383206506 Active 025 Rock Parsons MD null, [facility] [employer] [facility] 5 11:30:01 Problem Notes None recorded. Medical Equipment None Reported. Allergies Allergen ID Allergen Name Allergen Category Reaction Reaction Severity Criticality Documentation Date Start Date Code Code System Note Provider Name and Address Organization Details Recorded Time 17790 No Allergy Informati on Available Not available Not available Not available Not available 08/31/2024 [id number] UNK Comme nt: dfnam e: Rere tobar; dlnam e: Raymon en; ; Not Available [facility] 5 16:49:03 Medications Name Sig Start Date [...] Available No t Available BD Regular Bevel [place] 18 gauge x 1 USE WITH testosteron [...] Not Available Not Available No t Available oxycodone 5 mg tablet TAKE 1 TO 2 TABLETS BY MOUTH EVERY 8 HOURS NEEDED FOR SEVERE PAIN active Not Available Not Available Not Available Vitamin D3 25 mcg (1,000 unit) [...] Available Not Available No t Available FreeStyle [place] Lite kit USE TWICE DAILY active Not [...] Not Available Not Available No t Available Jardiance 10 mg tablet TAKE 1 TABLET BY MOUTH EVERYDAY AT NOON active Not Available Not Available No t Available Praluent Pen 75 mg/mL subcutaneous pen injector INJECT 75 MG SUBCUTANEOU SLY 2 WEEKS active Not Available Not Available Not Available naloxone 4 mg/actuation nasal spray FOR SUSPECTED OPIOID OVERDOSE. SPRAY 0.1mL IN ONE NOSTRIL. REPEAT IN ALTERNATE NOSTRIL 2-3 MINUTES IF NEEDED. SEEK MEDICAL ATTENTION IMMEDIATELY EVEN IF PATIENT RESPONDS. active Not Available Not Available No t [...] Not Available Not Available Not Available Vitals Date Recorded Body height Body mass index (BMI) Body weight Heart rate Oxygen saturation Oxygen saturation in Arterial blood by Pulse oximetry Body temperature Systolic blood pressure Diastolic blood pressure Provider Name and Address Organization Details Last Updated DateTime 5 165.1 cm 26.3 kg/m2 45996.5 9 g 63 /min 99 % 99 % 98 [degF] 110 mm[Hg] 72 mm[Hg] [facility] [place] 5 11:18:47 Social History None recorded. Functional Status None recorded. Mental Status None recorded. Family History Nothing Reported. Medical History No medical history recorded. Past Encounters Encounter ID Performer Location Encounter Start Date Encounter Closed Date Diagnosis/Indication Diagnosis SNOMED-CT Code Diagnosis ICD10 Code Diagnosis Note [id number] Rock Parsons MD [id number] [facility] [address] [place] [address] 11/02/2024 11:11:23 11/02/2024 13:04:56 Diabetic peripheral neuropathy 173353180 E11.40 -patient with long-stand ing history of bilateral foot pain, likely 2/2 diabetes and HTN induced neuropathy -patient did quite well with SCS trial, and underwent SCS implant on 10/04/24; currently reports that pain is significan tly improved -his current psychiatri (Dr. Moreno-- [facility]--[phone] ) -35 minutes was used for chart review, interviewi ng/examini ng, and counseling the patient during today's visit, and patient denies having any other further questions/ concerns -f/up in 6 months Health Concerns Section Related Observation LastModified by Organization Detai ls LastModified Time None Recorded Concern Status LastModified by Organization Details LastModified Time None Recorded Payers Encounter Date Sequence Insurance Name Policy Number Policy Price Covered Member ID Price Member ID Guarantor Name 11/02/2024 1 [place] [facility] Owen Hurd [id number] Owen Hurd Notes Date Note Type Note Provider Name and Address Organization Details Recorded Time 11/02/2024 text/html Owen Hurd is a pleasant 53 y.o. year old male, who has a past medical history of Diabetes mellitus (HCC), Disease of thyroid gland, Hypercholesteremia, Hypertension, and Sleep apnea. CAD s/p stentx3, who presents with moderate bilateral foot/ankle pain for several years. he denies any inciting events. Of note, patient is on PLAVIX (sees [place]).? ? ?he reports that performing activities of daily living is somewhat difficult.? ? ?Current pain medications: gabapentin 400mg TID? ? ?Previous Medications and doses tried/effect: lidocaine patch, voltaren gel? ? ?Previous Nerve Block or Injection: right-sided hip injectionsSCS trial (08/24/24): ~75% improvement in bilateral foot painSCS implant (10/04/24):? ? ?I personally reviewed prior radiological services. [...] were c/d/i. Gauze/tape applied to insertion sites. 11/02/24: Patient seen/examined in the office. He is s/p SCS implant on 10/04/24. We had the sales service representative from [employer] also present at today's visit. With additional adjustments and programming, patient reports that he has adequate coverage of the painful areas in his feet bilaterally. He reports that the pain he was having in his feet bilaterally is much much improved and is very glad he had this done for him. He denies any issues with the spinal cord stimulator. No weakness in bilateral lower extremities. No bowel or bladder incontinence, and no saddle anesthesia. Incision sites are healing well. Rock Parsons MD [facility], [place] - [facility] 11/02/2024 12:40:27
--- OUTSIDE RECORDS SUMMARY | 2024-11-02 18:37 | XMS_ITS | Clinical Summary ---
Author Organization [facility] Address [address] [place] [address] Phone Care Team Providers Care House Designer Name Role Phone Audrey Smith MD Primary Care Provide r Allergies No known active allergies Medications diclofenac (VOLTAREN) 1 % topical gel Apply 4 g topically 2 times daily. 08/18/19 24 Active aspirin 81 mg EC tablet Take [...] total) by mouth at bedtime as needed (SLEEP/ANXIETY). Active imipramine (TOFRANIL) 10 mg tablet Take 1 tablet (10 mg total) by mouth at bedtime. Active levothyroxine (SYNTHROID, LEVOTHROID) 25 mcg tablet Take by mouth 1 (one) time each day before breakfast. Active loperamide (IMODIUM) 2 mg capsule Take 1 capsule (2 mg total) by mouth 4 (four) times a day if needed for diarrhea. Active LORazepam (ATIVAN) 2 mg tablet Take 1 tablet (2 mg total) by mouth at bedtime. Active metFORMIN (FORTAMET) 1,000 mg 24 hr [...] Active sertraline (ZOLOFT) 100 mg tablet Take 1.5 tablets (150 mg total) by mouth 1 (one) time each day. Active tamsulosin (FLOMAX) 0.4 mg 24 hr capsule Take 1 capsule (0.4 mg total) by mouth at bedtime. Capsules should be taken 30 minutes following the same meal each day. Active testosterone cypionate (DEPO-TESTOTER ONE) 200 mg/mL injection Inject 0.7 mL (140 mg total) into the shoulder, thigh, or buttocks every 14 (fourteen) days. EVERY 3 MTHS BY DRS OFFICE Active glucose 4 gram chewable tablet Chew 4 tablets (16 g total) if needed for low blood sugar. Active cholecalcifero l (VITAMIN D-3) 25 mcg (1,000 unit) tablet Take 1 tablet (1,000 Units total) by mouth 1 (one) time each day. Active empagliflozin (Jardiance) 10 mg tablet Take 1 tablet (10 mg total) by mouth 1 (one) time each day. Active lipase/proteas e/amylase (PANCRELIPASE ORAL) Take by mouth 4 (four) times a day. Active alirocumab (PRALUENT) 75 mg/mL pen injector Inject 1 mL (75 mg total) under the skin every 14 (fourteen) days. Active oxyCODONE (OXY-IR) 5 mg immediate release capsule Take 1-2 capsules (5-10 mg total) by mouth every 8 (eight) hours if needed for severe pain. Max Daily Amount: 30 mg 20 capsule 10/05/19 25 Active blood sugar diagnostic (FreeStyle Lite Strips) test strip USE DIRECTED TO TEST BLOOD SUGAR TWICE DAILY 08/31/19 25 Active Procto-Med HC 2.5 % rectal cream INSERT 1 APPLICATORFUL RECTALLY TWICE DAILY NEEDED FOR PAIN 09/08/19 25 Active clopidogreL (PLAVIX) 75 mg tablet Take 1 tablet (75 mg total) by mouth 1 (one) time each day. 025 Discontin ued(Stop Taking at Discharge ) Active Problems Problem Noted Date Diagnosed Date S/P insertion of spinal cord stimulator 10/16/19 25 Assessment & Plan (10/15/2024 2:48 PM EDT): Patient is 11 days s/p spinal cord stimulator placement, he does feel it is helping his burning neuropathic pain in his LEs, it has been turned on and seems to be working well. He has not had any wound drainage, fevers, sweats chills. He is not requiring any pain medication. Sarbjit from [facility] is here as well to go over any questions, how to use the remote and stimulator. Patient's been ambulating, but not overdoing things, careful not to do any heavy lifting. They just took the bandages off his incision today prior to coming in. Mr. Rio Hurd is doing well s/p spinal cord stimulator placement. I put in an order to get baseline lumbar spine x-rays today. We went over postop restrictions, questions answered, he has a mild rash from the adhesive tape which he can use Benadryl cream on or Aquaphor. I asked him to call if he has any worsening symptoms or concerns. He did not need any pain med refills today. We used [employer] claims consultant Leeanna #[id number], Morgan #[id number]. Chronic pain syndrome 09/21/2024 Diabetic neuropathy, painful ([facility] V24, [facility] V28) 09/14/2024 Assessment & Plan (09/14/2024 4:44 PM EST): I reviewed the steps involved in placement of the spinal cord stimulator leads and generator with the patient in conjunction with Sarbjit the c s s representative from [facility] and a plate roller. I demonstrated the position of each incision [...] were answered and he wishes to proceed. Chronic right hip pain 02/26/2024 Type 2 diabetes mellitus wit h hyperglycemia, without long-term current use of insulin ([facility] V24, [facility] V28) 12/04/2022 Stented coronary artery 11/20/2017 Essential hypertension 11/20/2017 Anxiety 11/20/2017 Acquired hypothyroidism 11/20/2017 Encounters Date Type Department Care Team Description 11/01/2024 9:15 AM EDT Office Visit Orthopedic Surgery - [place] [address] [facility] [address] [place] [phone] Aaron Graves DPM Diabetic mononeuropathy simplex ([facility] V24, [facility] V28) (Primary Dx); Primary osteoarthritis of both feet 10/19/2024 10:25 AM EDT - 10/19/2024 11:59 PM EDT Hospital Encounter [facility] Xray [address] [place] [phone] S/P insertion of spinal cord stimulator Discharge Disposition: Home or Self Care 10/15/2024 2:15 PM EDT Office Visit Neurosurgery [facility] [address] [phone] Adali Hogue PA S/P insertion of spinal cord stimulator (Primary Dx) 10/04/2024 10:35 AM EDT Anesthesia Event [facility] Main OR [address] [place] [address] Erwin Pelletier MD Claudio, Raymund, CRNA 10/04/2024 10:30 AM EDT - 10/04/2024 12:00 PM EDT Surgery [facility] Main OR [address] [place] [phone] Cara Davenport MD placement of spinal cord stim(left) including leads on to be done with Dr. Parsons [06321 (CPT??) +1 more] 10/04/2024 8:28 AM EDT - 10/04/2024 3:49 PM EDT Hospital Encounter [facility] Main OR [address] [place] [address] Cara Davenport MD Discharge Disposition: Home or Self Care 10/04/2024 7:05 AM EDT - 10/04/2024 11:59 PM EDT Hospital Encounter [facility] Xray [address] [place] [address] Pain Discharge Disposition: Home or Self Care 09/14/2024 3:15 PM EST Office Visit [facility]surgery [facility] [address] [phone] Cara Davenport MD Diabetic neuropathy, painful (CMS/HCC V24, CMS/HCC V28) (Primary Dx) 08/24/2024 9:47 AM EST Anesthesia Event [facility] Pain Management [address] [place] [address] Jonatan Alvarado DO 08/24/2024 7:08 AM EST - 08/24/2024 11:59 PM EST Hospital Encounter [facility] Pain Management [address] [place] [phone] Rock Parsons MD Walsh, Michael, DO Weiss, Ashley, CRNA Type 2 diabetes mellitus with diabetic polyneuropathy, unspecified whether snf insulin use ([facility]) [E11.42] (Primary Dx); Type 2 diabetes mellitus with diabetic polyneuropathy (CMS/[facility] V24, CMS/[facility] V28); Peripheral polyneuropathy [G62.9] Discharge Disposition: Home or Self Care 08/24/2024 6:05 AM EST - 08/24/2024 11:59 PM EST Hospital Encounter [facility] Xray [address] [place] [address] Pain Discharge Disposition: Home or Self Care from Last 3 Months Immunizations Name Administration Dates Next Due COVID-19 (Moderna/Spikevax) 12yo and older 07/10/2022 Hepatitis B (Simebsv-J-Yaeqm , Recombivax HB-Adult) 19yo and older 12/07/2020,01/25/2019,12/25/2018 Influenza Quadrivalent, 0.5m l, preservative free (Fluarix; FluLaval; Fluzone) ages 6mo and older (Afluria) 3yo and older 05/16/2023,04/18/2022,04/13/2021,2019 Influenza Quadrivalent, with preservative (Fluzone; Afluria) 6mo and older 05/24/2019,04/07/2018 Influenza trivalent, 0.5mL, preservative free (Fluarix; FluLaval; Fluzone) ages 6mo and older (Afluria) 3 years and older 05/21/2024 Pfizer (ages 12 & older) ADDY S-CoV-2 COVID-19, mRNA, LNP-S, jenny-sucrose, preservative free 10/31/2021 Pneumococcal conjugate 20 va lent (Prevnar 20, PCV 20) 2mo and older 10/22/2023 Tdap Tetanus diptheria acell ular pertussis (Boostrix; Adacel) 7yo and older 03/16/2018 Zoster recombinant (Shingrix ) 19yo and older 08/09/2021,05/30/2021 Surgical History Surgery Date Site/Laterality Comments CORONARY ANGIOPLASTY WITH ST ENT PLACEMENT ABSCESS DRAINAGE RIGHT ARM/RIGHT FOOT SPINAL CORD STIMULATOR IMPLANT 10/04/2024 Dr. Davenport and Dr. Parsons, [facility] Medical History Medical History Date Comments Diabetes mellitus ([facility] V24, [facility] V28) Hypertension Disease of thyroid gland Hypercholesteremia Sleep apnea GERD (gastroesophageal reflux disease) Psychiatric illness Depression Joint pain Anxiety PTSD (post-traumatic stress disorder) Social History Tobacco Use Types Packs/Day Years Used Date Smoking Tobacco: Former Cigarettes Tobacco Cessation:Counseling Given: Not Answered Alcohol Use Standard Drinks/Week Comments Not Currently 0 (1 standard drink = 0.6 oz pur e alcohol) Interpersonal Safety Answer Date Record ed Physical Abuse 10/04/2024 Verbal Abuse 10/04/2024 Sex and Gender Information Value Date Recorded Sex Assigned at Male 08/24/2024 7:05 AM EST Legal Sex Male 8:28 PM EST Gender Identity Male 08/24/2024 7:05 AM EST Sexual Orientation Straight 08/24/2024 7: 05 AM EST Obstetrics History Last Filed Vital Signs Vital Sign Reading Time Taken Comments Blood Pressure 116/79 10/04/2024 2:34 PM EDT Pulse 69 10/04/2024 2:34 PM EDT Temperature 36.2 ??C (97.1 ??F) 10/04/2024 2:34 PM ED T Respiratory Rate 18 10/04/2024 2:34 PM EDT Oxygen Saturation 95% 10/04/2024 2:34 PM EDT Inhaled Oxygen Concentration - - Weight 74.8 kg (165 lb) 10/15/2024 2:11 PM EDT Height 167.6 cm (5' 6 ) 10/15/2024 2:11 PM EDT Body Mass Index 26.63 10/15/2024 2:11 PM EDT Plan of Treatment Upcoming Encounters Date Type Department Care Team (Late st Contact Info) Description 05/03/2025 9:30 AM EDT Office Visit Orthopedic Surgery - [place] [id number] [phone] Aaron Graves, DPM [address] [address] Health Maintenance Due Date Last Done Comments Diabetes: Annual Foot Exam 11/07/1979 Diabetes: Annual Retina Eye Exam 11/07/1979 Colorectal Cancer Screening: Colonoscopy 08/15/2023 HIV Screening 08/15/2023 Hepatitis C Screening 08/15/2023 Social Influencers of Health Screening 08/15/2023 Diabetes: Annual Urine Albumin-Creatinine Ratio (uACR) 04/29/2024 Diabetes: Blood Sugar Control Test (HGBA1C) 03/17/2025 09/17/2024, 05/21/2024 Depression Screening 05/21/2025 05/21/2024 Diabetes: Annual [...] age to complete this topic Meningococcal B Vaccine Aged Out No l onger eligible based on patient's age to complete this topic RSV Immunization Patients Under 20 months Aged Out No longer eligible based on patient's age to complete this topic Varicella Vaccines Aged Out No longer eligible based on patient's age to complete this topic Medical Devices Implanted Type Area Dispatcher Maintenance Device Identifier Shelf Expiration Date Model / Serial / Lot Lead Linear Trial - [id number] - [id number] Implanted:Qty : 1 on 08/24/2024 by Rock Parsons MD at [facility] Neurostim Right: Back [employer] 03/23/2026 [id number] / [id number] / [id number] Lead Linear Trial St - [id number] - [id number] Implanted:Qty : 1 on 08/24/2024 by Rock Parsons MD at [facility] Neurostim Left: Back [employer] 03/15/2026 [id number] / [id number] / [id number] Generator Implant Pulse Ww Alpha - [id number] - [id number] Implanted:Qty : 1 on 10/04/2024 by Cara Davenport MD at [facility] Neurostim Left: Back [employer] [id number] 06/22/2026 [id number] / [id number] / [id number] Powder Surgifoam Absorb Gel - Sna - [id number] Implanted:Qty : 1 on 10/04/2024 by Cara Davenport MD at [facility] [employer] Left: Back [employer] [id number] 06/28/20261977 / [id number] / [id number] Linearv Contact Lead Set Implanted:Qty : 1 on 10/04/2024 by Cara Davenport MD at [facility] Left: Back [employer] 08/13/2026 [id number] / [id number] / [id number] Linear Contact Lead Kit Implanted:Qty : 1 on 10/04/2024 by Cara Davenport MD at [facility] Left: Back [employer] 08/13/2026 [id number] / [id number] / [id number] Procedures Procedure Name Priority Date/Time Associated Diagnosis Comments XR LUMBAR SPINE 2-3 VIEWS Routine 10/19/2024 11:21 AM EDT S/P insertion of spinal cord stimulator POCT GLUCOSE BLOOD Routine 10/04/2024 1: 33 PM EDT XR LUMBAR SPINE 2-3 VIEWS Routine 10/04/2024 12:21 PM EDT Pain TH AN ENDOTRACHEAL(NO CHARGE) Routine 10/04/2024 11:20 AM EDT PA INS/REPL SPN NSTIM PG/REC REQ PCKT CREATION BTW ELTRD ARRAY & PG/REC 10/04/2024 10:40 AM EDT Chronic pain syndrome Case Notes [employer] spinal cord stim PA IMPLANTATION NEUROSTIMULATOR ELECTRODE ARRAY EPIDURAL PERCUTANEOUS 10/04/2024 10:40 AM EDT Chronic pain syndrome Case Notes [employer] spinal cord stim POCT GLUCOSE BLOOD Routine 10/04/2024 8: 45 AM EDT XR FLUORO UP TO 1 HOUR Routine 10:54 AM EST Pain POCT GLUCOSE BLOOD Routine 08/24/2024 7: 25 AM EST from Last 3 Months Results * XR Lumbar Spine 2-3 Views (10/19/2024 11:21 AM EDT) Only the most recent of2 resultswithin the time period is included. Anatomical Region Laterality Modality Spine, L-spine Radiographic Angelique ging 10/19/2024 1:35 PM EDT Impressions 10/19/2024 1:39 PM EDT There are 2 leads projecting in the lower spinal canal. They terminate posterior to the T12 and L1 levels. On 10/04/24 both appear to terminate at the T12 level. -------- FINAL REPORT -------- Dictated By: Horace Morales Dictated Date: 10/19/2024 13:35 ET Assigned Physician: Horace Morales Reviewed and Electronically Signed By: Horace Morales Signed Date: 10/19/2024 13:39 ET Workstation ID: [id number] Transcribed By: Self Edit Transcribed Date: 10/19/2024 13:35 ET Narrative 10/19/2024 1:39 PM EDT EXAMINATION: LUMBAR SPINE CLINICAL INFORMATION: Evaluate lead placement COMPARISON: Portions of a study 10/04/24 TECHNIQUE: 3 views of lumbar spine FINDINGS: A power generator is in the dorsal left soft tissues with leads projecting into the lower spinal canal. The lead traversing on the right terminates at the mid and lower L-1/L-2 level. The lead on the left terminates at the T12 level. On 10/04/24 the leads appear to be terminating at the T12 level. The leads appear intact. I cannot confirm integrity of the L5 pars interarticulares. Bilateral L5 spondylolysis may be present. Procedure Note Horace Morales MD - 10/19/2024 EXAMINATION: LUMBAR SPINE CLINICAL INFORMATION: Evaluate lead placement COMPARISON: Portions of a study 10/04/24 TECHNIQUE: 3 views of lumbar spine FINDINGS: A power generator is in the dorsal left soft tissues with leads projectinginto the lower spinal canal. The lead traversing on the right terminatesat the mid and lower L-1/L-2 level. The lead on the left terminates at theT12 level. On 10/04/24 the leads appear to be terminating at the [id number]. The leads appear intact. I cannot confirm integrity of the L5 pars interarticulares. Bilateral [id number] may be present. IMPRESSION: There are 2 leads projecting in the lower spinal canal. They terminateposterior to the T12 and L1 levels. On 10/04/24 both appear to terminate atthe T12 level. -------- FINAL REPORT -------- Dictated By: Horace Morales Dictated Date: 10/19/2024 13:35 ET Assigned Physician: Horace Morales Reviewed and Electronically Signed By: Horace Morales Signed Date: 10/19/2024 13:39 ET Workstation ID: [id number] Transcribed By: Self Edit Transcribed Date: 10/19/2024 13:35 ET us Adali M Mykel PA IMG XR PROCEDURES Final Re sult * (ABNORMAL) POCT Glucose, blood (10/04/2024 1:33 PM EDT) Only the most recent of3 resultswithin the time period is included. Glucose POCT 213(H) 70 - 100 mg/dL 10/04/2024 1:34 PM EDT [facility] Blood Capillary blood specimen / Unknown 10/04/2024 1:33 PM EDT 10/04/2024 1:35 PM EDT us Cara Davenport MD LAB POINT OF CARE TE ST DOCKED DEVICE UNSOLICITED RESULTS Final Result [facility] [address] [place] [address], [place] [phone] * TH AN ENDOTRACHEAL(NO CHARGE) (10/04/2024 11:20 AM EDT) Narrative Darnell Lux CRNA - 10/04/2024 11:20 AM EDT Darnell uLx CRNA ? 10/04/2024 11:21 AM General Information and Staff Patient location during procedure: OR Performed by: Darnell Lux CRNA Authorized by: Erwin Pelletier MD ?? Intubation Airway not difficult Urgency: elective Final Airway Details Successful airway: ETT Cuffed: yes Successful intubation technique: direct laryngoscopy Endotracheal tube insertion site: oral Blade: Kevin Blade size: #3 ETT size (mm): 7.5 Cormack-Lehane Classification: grade IIa - partial view of glottis Placement verified by: chest auscultation, capnometry and palpation of cuff Cuff volume (mL): 7 Measured from: lips ETT to lips (cm): 21 Number of attempts at approach: 1Final airway type: endotracheal airway Indications and Patient Condition Indications for airway management: anesthesia and airway protection Spontaneous ventilation: present Sedation level: Yes Preoxygenated: yes Soft Tissue Damage: No Dentition Unchanged: Yes Patient position: neutral Mask difficulty assessment: 2 - vent by mask + OA or adjuvant +/- NMBA us Erwin Pelletier MD ANESTHESIA ORDERABLES Final Re sult * XR Fluoro Up To 1 Hour [...] Signed Date: 08/24/2024 13:23 ET Workstation ID: [id number] Transcribed By: Self Edit Transcribed Date: 08/24/2024 [...] Signed Date: 08/24/2024 13:23 ET Workstation ID: [id number] Transcribed By: Self Edit Transcribed Date: 08/24/2024 13:23 ET us Rock Parsons MD IMG FLUOROSCOPY PROCEDURES Fin al Result from Last 3 Months Insurance [place] Advance Directives * Full Code - Default (Latest Code Status on File) Date Activated Date Inactivated Comments 10/04/2024 8:37 AM 10/04/2024 5:54 PM This is orde r is used when code status has not been discussed with the patient, or code status is otherwise unknown/unconfirmed To update the patient's code status, place a code status order. Do not modify or discontinue any currently active code status orders. Care Teams House Designer Relationship Specialty Start Date End Date Audrey Smith MD [address] [place] [phone] PCP - General 07/01/23
--- OUTSIDE RECORDS SUMMARY | 2024-11-02 18:37 | XMS_ITS | Encounter Summary ---
Author Organization [facility] Address [address] [address] [place] [address] Care Team Providers Care Community Health Nursing Director Name Role Phone Audrey Smith MD Primary Care Provide r Encounter Details Date Type Department Care Team (Late st Contact Info) Description 10/10/2022 Orders Only [facility] MEDICINE [address] [place] [id number] Uzma Tyler LPN Social History Tobacco Use [...] Care Team (Late st Contact Info) Description 11/03/2024 9:05 AM EDT Nurse Only [address] [address] 12/10/2024 10:30 AM EDT Medication Management [address] [address] 12/15/2024 9:15 AM EDT Office Visit [address] [address] Audrey Smith MD [address] [place] [phone] documented as of this encounter Visit Diagnoses Not on filedocumented in this encounter Care Teams Community Health Nursing Director Relationship Specialty Start Date End Date Audrey Smith MD [address] [place] [address] PCP - General Family Medicine 11/20/17 documented as of this encounter
--- OUTSIDE RECORDS SUMMARY | 2024-11-02 18:37 | XMS_ITS | Clinical Summary ---
Author Organization [employer] Address [address] [facility] 7t [place] [address] Care Team Providers Care Solar Photovoltaic Electrician Name Role Phone Audrey Smith MD Primary [...] MOUTH EVERYDAY AT NOON 023 Active Zenpep [id number] units capsule delayed-release particles capsule Take 1 [...] AT NOON Active B-D 3CC LUER-CHRISTINE SYR 07HW9-3/2 21G X 1-2 3 ML misc USE [...] complication, without long-term current use of insulin (CMS/[facility]) TEST BLOOD SUGAR TWICE DAILY 100 each 11 Active Blood Glucose Monitoring Suppl (FreeStyle Lite) w/Device kitIndications:T ype 2 diabetes mellitus with hyperglycemia, without long-term current use of insulin (CMS/HCC) 1 kit 2 times daily. 1 kit Active FREESTYLE LITE test stripIndications :Type 2 diabetes mellitus with hyperglycemia, without long-term current use of insulin (CMS/[facility]) TEST BLOOD SUGAR TWICE DAILY 50 strip [...] MG EC tabletIndication s:Coronary artery disease involving solomon coronary artery of solomon heart, unspecified whether angina present TAKE 1 TABLET BY MOUTH EVERYDAY AT NOON 90 tablet 1 024 Active clopidogrel (Plavix) 75 MG tabletIndication s:Coronary artery disease involving solomon coronary artery of solomon heart, unspecified whether angina present TAKE 1 [...] 24 hr tabletIndication s:Coronary artery disease involving solomon coronary artery of solomon heart, unspecified whether angina present TAKE 1 [...] 2 diabetes mellitus without complication, unspecified whether mcfp insulin use (CMS/HCC) TAKE 1 TABLET BY MOUTH EVERYDAY AT NOON 90 tablet 1 025 Active empagliflozin (Jardiance) 10 MGIndications:Ty pe 2 diabetes mellitus with hyperglycemia, without long-term current use of insulin (CMS/HCC) Take 1 tablet (10 mg) by mouth Once per day. 30 tablet 11 025 2025 Active gabapentin (Neurontin) 400 MG capsuleIndicatio ns:Diabetic polyneuropathy associated with type 2 diabetes mellitus (CMS/HCC) Take 1 capsule by mouth at noon, evening, and bedtime 90 capsule 1 025 Active gabapentin (Neurontin) 400 MG capsuleIndicatio ns:Diabetic polyneuropathy associated with type 2 diabetes mellitus (CMS/HCC) TAKE 1 CAPSULE BY MOUTH AT NOON, EVENING, AND BEDTIME 90 capsule 1 025 2024 Discontinued( Reorder (will not trigger notification to Pharmacy)) Active Problems Problem Noted Date Diagnosed Date [...] use of insulin 12/04/2022 Assessment & Plan (09/17/2024 12:35 PM EST): Diabetes is: not controlled - Lab Results Component Value Date HGBA1C 7.8 (A) 09/17/2024 HGBA1C 7.3 (A) 05/21/2024 HGBA1C 7.1 (A) 02/26/2024 - Lab Results Component Value Date MICROALBUR <5.0 06/02/2024 CREATININE 0.92 06/02/2024 -Changes: Patient tells me she he was out of Invokana because of insurance and just started on Jardiance 25 mg advised to get into his medications - Diabetic eye exam: Up-to-date - Diabetic foot exam: Up-to-date - Continue lifestyle modifications - Continue current medications - Follow up: 3 months Assessment & Plan (02/26/2024 9:58 AM EDT): [...] Continue to follow with specialist Diabetic polyneuropathy jolanta ciated with type 2 diabetes mellitus 12/04/2022 Assessment & Plan (05/21/2024 10:10 AM EDT): Patient being follow by podiatry Diabetes management optimized Diabetic polyneuropathy 05/18/2018 Acquired hypothyroidism 11/20/2017 Anxiety 11/20/2017 Stented coronary artery 11/20/2017 Polyp of colon 11/20/2017 Hyperuricemia 11/20/2017 CAD in solomon artery 11/20/2017 Benign prostatic hyperplasia with nocturia 11/20 Exercise-induced angina 11/20/2017 Essential hypertension 11/20/2017 Assessment & Plan (09/17/2024 12:34 PM EST): Blood pressure seems to be under control, I advised low-sodium diet continue with same medication regimen Assessment & Plan (05/21/2024 10:11 AM EDT): [...] will continue with same medications, I extensibly counseling center manager him about diabetic diet and let him know his glucose also will likely go down after back injections wears out - Encounters Date Type Department Care Team Description 11/02/2024 Orders Only [facility] [address] [place] [address] Audrey Smith MD 11/02/2024 Travel 11/01/2024 Refill [facility] [address] [place] [address] Audrey Smith MD Diabetic polyneuropathy associated with type 2 diabetes mellitus ([facility]/HCC) 11/01/2024 Refill [facility] [address] [place] [address] Audrey Smith MD Diabetic polyneuropathy associated with type 2 diabetes mellitus ([facility]/HCC) 10/26/2024 Telephone [facility] [address] [place] [address] Audrey Smith MD 10/22/2024 Refill [facility] [address] [place] [address] Audrey Smith MD Diabetic polyneuropathy associated with type 2 diabetes mellitus ([facility]/HCC) 10/01/[address] [facility] () Department [address] [place] [phone] Provider, Population Health Generic 09/17/2024 10:00 AM EST Office Visit [facility] [place] [address] Audrey Smith MD Essential hypertension (Primary Dx); Type 2 diabetes mellitus with hyperglycemia, without long-term current use of insulin ([facility]/HCC) 09/17/2024 Travel 09/15/2024 Orders Only GENERIC EXTERNAL DATA DEPARTMENT Provider, Generic External Data 09/03/2024 Patient Outreach [facility] [place] [address] Audrey Smith MD Pre-visit Planning (SDOH screening negative and tobacco screening negative) 08/30/2024 Orders Only GENERIC EXTERNAL DATA DEPARTMENT Provider, Generic External Data 08/26/2024 Orders Only [facility] [place] [address] Audrey Smith MD Type 2 diabetes mellitus with hyperglycemia, without long-term current use of insulin ([facility]) (Primary Dx) 08/26/2024 Refill [facility] [address] [place] [address] Audrey Smith MD Diabetic polyneuropathy associated with type 2 diabetes mellitus ([facility]/HCC) 08/25/2024 Orders Only GENERIC EXTERNAL DATA DEPARTMENT Provider, Generic External Data from Last 3 Months Immunizations Name Administration [...] the past 12 months, has t he [employer] gas, oil or water company threatened to [...] Sign Reading Time Taken Comments Blood Pressure 108/76 11/02/2024 5:52 PM EDT Pulse 64 11/02/2024 5:52 PM EDT Temperature 36.5 ??C (97.7 ??F) 09/17/2024 9:41 AM ES T Respiratory Rate 16 09/17/2024 9:41 AM EST Oxygen Saturation 98% 05/21/2024 9:35 AM EDT Inhaled Oxygen Concentration - - Weight 77 kg (169 lb 12.8 oz) 09/17/2024 9:41 AM EST Height 167.6 cm (5' 6 ) 09/17/2024 9:41 AM EST Body Mass Index 27.41 09/17/2024 9:41 AM EST Plan of Treatment Upcoming Encounters Date Type Department Care Team (Late st Contact Info) Description 11/03/2024 9:05 AM EDT Nurse Only [facility] [address] [place] [phone] 12/10/2024 10:30 AM EDT Medication Management [address] [address] 12/15/2024 9:15 AM EDT Office Visit [facility] [address] [place] [address] Audrey Smith MD [address] [place] [address] Health Maintenance Due Date Last Done Comments CT Colonography 1969 FIT DNA/Cologuard 1969 FIT 1970 FOBT 1970 Sigmoidoscopy 1970 Diabetes: Foot Exam 11/07/1979 Hepatitis C Screening 11/07/1987 Hepatitis A Vaccines (1 of 2 - Risk 2-dose series) 1988 Colonoscopy 05/22/2023 05/22/2021 Colorectal Cancer Screening 05/22/2023 Diabetes: Hemoglobin A1C 12/15/2024 025, 05/21/2024, 02/26/2024, Additional history exists Alcohol/Substance Use Screening 05/21/2025 [...] Procedure Name Priority Date/Time Associated Diagnosis Comments VITAMIN B12/FOLATE, SERUM PANEL Routine 11/02/2024 3:33 PM EDT POCT GLYCATED HEMOGLOBIN, TOTAL Routine 09/17/2024 9:50 AM EST Type 2 diabetes mellitus with hyperglycemia, without long-term current use of insulin (CMS/[facility]) POCT GLUCOSE Routine 09/17/2024 9:49 AM EST Type 2 diabetes mellitus with hyperglycemia, without long-term current use of insulin (CMS/[facility]) TESTOSTERONE, TOTAL, MALES (ADULT), IA Routine 09/15/2024 7:28 AM EST HEMATOXYLIN AND EOSIN STAIN Routine 08/30/2024 12:43 PM EST GLUCOSE, WHOLE BLOOD Routine 08/30/2024 11:15 AM EST LIPID PANEL, STANDARD Routine 08/25/2024 7:10 AM EST ALBUMIN, RANDOM URINE W/CREATININE Routine 06/02/2024 8:55 AM EST Type 2 diabetes mellitus with hyperglycemia, without long-term current use of insulin (CMS/[facility]) HM COLONOSCOPY Routine 05/22/2021 ZZZ HISTORICAL HIV AB/AG Routine 10/01/2019 10:28 AM EDT from Last 3 Months or Most Recently Relevant to Health Maintenance Results * Vitamin B12 (Cobalamin) and Folate Panel, Serum (11/02/2024 3:33 PM EDT) Vitamin B12 256 200 - 900 pg/mL [facility] Comment:NORMAL 200-900 PG/ML INDETERMINATE 160-199 PG/ML DEFICIENT < 160 PG/ML Folate 12.4 > or = 4.0 ng/mL [facility] Comment:Reference Values:> o r = 4.0 ng/mL< 4.0 ng/mL suggests folate deficiency Methotrexate, aminopterin and folinic acid(leucovorin) are chemotherapeutic agents whose molecularstructures are similar to folate; therefore, the Architectfolate assay cannot be used for patients using these drugs. 11/02/2024 3:33 PM EDT 11/02/2024 4:10 PM EDT us Audrey Holman MD LAB BLOOD ORDERABLES Final Result [facility] [address] [place], [place] [phone] * (ABNORMAL) POCT HGB A1C (09/17/2024 9:50 AM EST) Pathologist [facility] Hemoglobin A1C 7.8(A) 4.0 - 6.0 % QC Media Lot # [id number] Lot# Expiration Date Blood 09/17/2024 9:50 AM EST Audrey Holman MD POINT OF CARE TEST EN TER/EDIT ORDERABLES Final Result * POCT Glucose (09/17/2024 9:49 AM EST) Pathologist [facility] Glucose Blood, POC 198 60 - 200 mg/dL Comment:RBS QC Media Lot # [id number] Lot# Expiration Date Blood Capillary blood specimen / Unknown 09/17/2024 9:49 AM EST us Audrey Holman MD POINT OF CARE TEST EN TER/EDIT ORDERABLES Final Result * Testosterone, Total, males (Adult), IA (09/15/2024 7:28 AM EST) Testosterone, Total 935 250 - 1100 ng/dL [facility] Comment:For additional infor gunnar, please refer tohttp://education.hubbuzz.com/faq/[email or web address](This link is being provided for informational/educational purposes only.)This test was developed and its analytical performancecharacteristics have been determined by [employer] [place], [place]. It hasnot been cleared or approved by the U.S. Food and DrugAdministration. This assay has been validated pursuantto the CLIA regulations and is used for clinicalpurposes.THIS TEST WAS PERFORMED AT:[employer] [place] [id number] FU MD,PHD 09/15/2024 7:28 AM EST 09/15/2024 7:28 AM EST Generic External Data Provider LAB BLOOD ORDERAB LES Final Result [facility] [address] [place] [phone] * Hematoxylin and Eosin Stain (08/30/2024 12:43 PM EST) 08/30/2024 12:4 3 PM EST 08/30/2024 1:14 PM EST Narrative [facility] - 08/31/2024 3:23 PM EST ----- ------- Name: Owen Montano ?Age/Sex: 53/M ? : 1970 Unit#: [id number] ?? Attend Dr: Francesca Leyva MD ?Re08/30/24 ?Status: DEP SDC ? Location: HO.SSS ?Disch: ? ----- ------- SPEC : [id number] ?RECD: 08/30/24-1313 ? STATUS: ??SOUT ? REQ NUM: [id number] ? JUAN FRANCISCO: 08/30/24-1243 ? SUBM DR: Francesca Leyva MD ? ENTERED: ??08/30/244 ?SP TYPE: Surgical ? OTHR DR: Audrey [...] microscopic examination, 2 pieces in cassette [facility] Copies To: ?? Audrey Smith MD ?? [facility] ?? [address] [facility] ?? [place] [address] ?? [phone] ?? Francesca Leyva MD ?? [facility] ?? [address] ?? [place] [address] ?? [phone] ----- ------- Signed (signature on file) Samantha Olson MD 08/31/24 1523 ? ----- ------- ? END OF REPORT ? Generic External Data Provider LAB BLOOD ORDERAB LES Final Result Performing Organization Address [facility] de Phone Number [facility] [address] [place] [phone] * (ABNORMAL) Glucose, Whole Blood (08/30/2024 11:15 AM EST) Glucose, Whole Blood 134(H) 60 - 115 mg/dL [facility] Comment:METER #: [id number] 08/30/2024 11:1 5 AM EST 08/30/2024 11:21 AM EST Generic External Data Provider LAB BLOOD ORDERAB LES Final Result Performing Organization Address [facility] de Phone Number [facility] [address] [place] [phone] * (ABNORMAL) Lipid Panel, Standard (08/25/2024 7:10 AM EST) Triglycerides 181(H) <150 mg/dL [facility] Comment:Desirable Triglyceri de: less than 150 mg/dLBorderline High Triglyceride 150-199 mg/dLHigh Triglyceride: 200-499 mg/dLVery High Triglyceride: greater than or equal to 5OO mg/dL Cholesterol 142 <200 mg/dL [facility] Comment:Desirable Cholestero l: less than 200 mg/dLBorderline High Cholesterol: 200-239 mg/dLHigh Cholesterol: greater than 239 mg/dL LDL Cholesterol Calculated 68 <100 mg/dL [facility] Comment:Desirable LDL: less than 100 [...] Organization Address [facility] Co de Phone Number [facility] [address] [place] [phone] * Albumin, Random Urine W/Creatinine (06/02/2024 8:55 AM EST) Creatinine, Urine 107.27 mg/dL [facility] Microalbumin Urine <5.0 mg/L [facility] Microalbum Creatinine Ratio Ur TNP <30 ug/mg cr [facility] Comment:Unable to calculate albumin/creatinine ratio due to lowmicroalbumin or creatinine result. Urine (Urine, Random) 06/02/2024 8:55 AM EST 06/02/2024 10:47 AM EST Audrey Holman MD LAB URINE ORDERABLES Final Result Performing Organization Address [facility] Co de Phone Number [facility] [address] [place] [phone] * Hm Colonoscopy (05/22/2021) Historical Provider HEALTH [...] detection of this assay. ?? [employer] HIV Ag/Ab Combo assay result and supplemental assay results should be interpreted in conjunction with the patient's clinical presentation, history and other laboratory results. ??If the results are inconsistent with clinical evidence, additional testing is suggested to confirm the result. 10/01/2019 10:2 8 AM EDT us Audrey Holman MD HISTORICAL/NON ORDERA BLE LABS Final Result [facility] [address] from Last 3 Months or Most Recently Relevant to Health Maintenance Insurance [employer] Care Teams Solar Photovoltaic Electrician Relationship Specialty Start Date End Date Audrey Smith MD [address] [place] [address] PCP - General Family Medicine 11/20/17
--- OUTSIDE RECORDS SUMMARY | 2024-11-02 18:37 | XMS_ITS | Encounter Summary ---
Author Organization [employer] Address [address] [facility] 7t [place] [address] Care Team Providers Care Fast Food Attendant Name Role Phone Audrey Smith MD Primary Care Provide r Reason for Visit * Reason Onset Date Comments refill 11/01/2024 Encounter Details Date Type Department Care Team ([facility] st Contact Info) Description 11/01/2024 Refill [facility] [address] [place] [address] Audrey Smith MD [address] [place] [address] Diabetic polyneuropathy associated with type 2 diabetes [...] as of this encounter Miscellaneous Notes * Addendum Note - Crow Wood RN - 11/01/2024 10:39 AM EDTAddended by: CROW WOOD on: 11/01/2024 10:39 AM Modules accepted: Orders * Telephone Encounter - Crow Wood RN - 11/01/2024 10:36 AM EDT Per medrec, last picked up one month supply 09/29/24 and no refills remaining. Rx pended. PCP OFF * Telephone Encounter - Geetha Terry - 11/01/2024 10:31 AM EDT Pt walked in requesting refill for Gabapentin 400mg. documented in this encounter Plan of Treatment Upcoming Encounters Date Type Department Care Team (Late st Contact Info) Description 11/03/2024 9:05 AM EDT Nurse Only [address] [address] 12/10/2024 10:30 AM EDT Medication Management [address] [address] 12/15/2024 9:15 AM EDT Office Visit [address] [address] Audrey Smith MD [address] [place] [phone] documented as of this encounter Visit Diagnoses Diagnosis Diabetic polyneuropathy associated with type 2 diabetes mellitus (CMS/HCC) documented in this encounter Additional Health Concerns Assessment Noted Time PHQ-9 Depression Total Score: 0 05/21/20 24 9:38 AM EDT documented as of this encounter Care Teams Fast Food Attendant Relationship Specialty Start Date End Date Audrey Smith MD [address] [place] [phone] PCP - General Family Medicine 11/20/17 documented as of this encounter
--- OUTSIDE RECORDS SUMMARY | 2024-11-02 18:37 | XMS_ITS | Encounter Summary ---
Author Organization [employer] Address [address] [facility] 7t [place] [address] Care Team Providers Care Smoke Chaser Name Role Phone Audrey Smith MD Primary Care Provide r Reason for Visit * Reason Comments Med Refill Encounter Details Date Type Department Care Team (Late st Contact Info) Description 01/10/2023 Refill [facility] [address] [place] [phone] Name, MD Sameer [address] [place] [phone] Social History Tobacco Use Types Packs/Day Years [...] Description 11/03/2024 9:05 AM EDT Nurse Only [facility] [address] [place] [phone] 12/10/2024 10:30 AM EDT Medication Management [address] [address] 12/15/2024 9:15 AM EDT Office Visit [facility] [address] [place] [phone] Audrey Smith MD [address] [place] [address] documented as of this encounter Visit Diagnoses Not on filedocumented in this encounter Care Teams Smoke Chaser Relationship Specialty Start Date End Date Audrey Smith MD [address] [place], [place] [phone] PCP - General Family Medicine 11/20/17 documented as of this encounter
--- OUTSIDE RECORDS SUMMARY | 2024-11-02 18:37 | XMS_ITS | Encounter Summary ---
Author Organization [facility] Address [address] [place] [address] Care Team Providers Care Cloth Baler Name Role Phone Audrey Smith MD Primary Care Provide r Reason for Visit * Reason Comments Follow-up DM Foot Care Encounter Details Date Type Department Care Team ([facility] st Contact Info) Description 11/01/2024 9:15 AM EDT Office Visit Orthopedic Surgery - [place] [address] [phone] Aaron Graves DPM [address] [address] Diabetic mononeuropathy simplex (CMS/HCC V24, CMS/HCC V28) (Primary Dx); Primary osteoarthritis of both feet Social History Tobacco Use Types Packs/Day Years Used Date Smoking Tobacco: Former Cigarettes Alcohol Use Standard Drinks/Week Comments Not Currently [...] as of this encounter Progress Notes * Aaron Graves DPM - 11/01/2024 9:15 AM EDT S Patient complains of pain in both his feet hands he has pain in the tips of his toes as well as theback of his ankles he has been going for years achy worse with activity improves activity although has numbness of his feet gets worse when trying to sleep denies other pedal complaints does note that he is diabetic last A1c was 7.1 on 01/22/2023 patient is the top medication has not helped at all heis very frustrated at this time was wondering what else can be done about it does note that he has a pain specialist but has not had a nerve spine stimulator offered to him patient is he has followedwith neuro spine stimulator he has follow-up pain specialist he has not been using top medications Patient has had issues getting to have medications been without them for period of time notes his pain is improved significantly both lower extremities preschool assistant director utilized ID number [id number] ROS: GENERAL: Pt denies nausea, fever, vomiting, chills, or shortness of breath. Pt in NAD. CARDIOLOGY: pt denies chest pain, palpitations LUNGS: pt denies shortness of breath MUSCULOSKELETAL: See HPI, otherwise no joint pain or swelling, back pain, or muscle pain. SKIN: see HPI, otherwise no lesions, rash or itching NEURO: No persistent headache, weakness or numbness The remainder of the review of systems is noncontributory PAST MEDICAL HISTORY: There is no problem list on file for this patient. SOCIAL HISTORY: Social History Tobacco Use Smoking status: Not on file Smokeless tobacco: Not on file Substance Use Topics Alcohol use: Not on file History Never marked as reviewed. ACTIVE MEDICATIONS: Current Outpatient Medications Medication Sig Dispense Refill Diclofenac Sodium 1 % Gel Apply 4 g topically 2 times daily. 100 g 2 lidocaine (LIDODERM) 5 % Place 1 Patch onto the skin every 24 hours for 28 days. Apply for no more than 12 hours in any 24 hour period. 28 Patch 0 No current facility-administered medications for this visit. ALLERGIES: Patient has no known allergies. PHYSICAL EXAM: Height 5' 6 (1.676 m), weight 166 lb (75.3 kg). Estimated body mass index is 26.79 kg/m?? as calculated from the following: Height as of this encounter: 5' 6 (1.676 m). Weight as of this encounter: 166 lb (75.3 kg). PODIATRIC EXAMINATION: GENERAL: Patient appears well nourished, with NAD. VASCULAR: Dorsalis pedis pulses are 2/4 bilaterally and Posterior tibial pulses are 2/4 bilaterally. Capillary filling time within normal limits the digits. No pallor on elevation or rubor on dependency. Positive hair growth. No varicosities. Denies rest pain or claudication pain. NEUROLOGICAL: Sharp/dull sensation diminished, protective sensation diminished diffuse irritation with pain on palpation crepitation bilateral 7/10 with 5.07 semmes jeff bilaterally, vibratory sensation with tuning fork intact to the tibial tuberosity. ORTHOPEDIC: Good muscle strength 5/5 of all flexors and extensors. Dorsi flexion of ankle ,10 degrees, plantar flexion WNL. No muscle atrophy. DERMATOLOGICAL:.No masses or skin lesions noted. Normal skin temperature, normal skin turgor. BIOMECHANICS: STJ ROM wnl, MTJ ROM wnl, 1st MPJ ROM wnl. IMAGING: X-rays normal pedal radiographs very mild arthritis in the midfoot very mild arthritis anterior gutter of the ankle IMPRESSION: 1. Diabetic mononeuropathy simplex (CMS/HCC V24, CMS/HCC V28) 2. Primary osteoarthritis of both feet PLAN: Pt was seen and examined, history reviewed. Follow-up with placed to machine paint mixer for evaluation of possible nerve spine stimulator Discussed with patient regarding proper glucose control, exercise, and diet. Explained to patient proper shoe gear, and importance of daily foot checks. Voltaren gel lidocaine patches can continue with written prescription given due to issues filling at pharmacies I reviewed neuropathy and why it occurs in diabetics. I educated the patient on proper blood sugar control and the importance of an HgBA1c of less than 7.0%. I reviewed the signs and symptoms of neuropathy with the patient Radiographs reviewed both feet 3 views Pt to return for another evaluation in 6 to 12 months Aaron Graves DPM documented in this encounter Plan of Treatment Upcoming Encounters Date Type Department Care Team (Late st Contact Info) Description 05/03/2025 9:30 AM EDT Office Visit Orthopedic Surgery - [place] [address] [phone] Aaron Graves DPM [address] [address] documented as of this encounter Visit Diagnoses Diagnosis Diabetic mononeuropathy simplex ([facility] V24, [facility] V28)- Primary Type II or unspecified type diabetes mellitus with neurological manifestations, not stated as uncontrolled Primary osteoarthritis of both feet documented in this encounter Care Teams Cloth Baler Relationship Specialty Start Date End Date Audrey Smith MD [address] [phone] PCP - General 07/01/23 documented as of this encounter
--- OUTSIDE RECORDS SUMMARY | 2024-11-02 18:37 | XMS_ITS | Encounter Summary ---
Author Organization [employer] [facility] Address [address] [place] [address] 7t [place] [address] Care Team Providers Care Pediatric Clinical Dietician Name Role Phone Audrey Smith MD Primary Care Provide r Encounter Details Date Type Department Care Team (Late st Contact Info) Description 03/27/2023 Orders Only [facility] MEDICINE [address] [place] [address] Provider, MD Natasha Social History Tobacco Use Types Packs/Day Years [...] Department Care Team (Late Contact Info) Description 11/03/2024 9:05 AM EDT Nurse Only [address] [address] 12/10/2024 10:30 AM EDT Medication Management [address] [address] 12/15/2024 9:15 AM EDT Office Visit [address] [address] Audrey Smith MD [address] [place] [address] documented as of this encounter Procedures Procedure [...] EDT Narrative 03/30/2023 11:21 AM EDT ? [facility] ?[address] ?[place] [address] ?XRay Report ? Signed ? Patient: Owen Montano ?MR#: ?? [id number] ? : 1970 ?Acct:[id number] ? Age/Sex: 52 / M ?ADM Date: 03/30/23 ? Loc: HO.ED ? Attending Dr: ? Ordering Physician: Ada Mcintosh NP ?? Date of Service: 03/30/23 ?? Procedure(s): XR hip RT w PEL1V ?? Accession Number(s): [id number] ? cc: Audrey Smith MD; Ada Mcintosh [...] 1117 ? DD/ 1046 ? TD/TT: ? [employer]: ? Procedure Note Jamshid, Leigh - 03/30/2023 [facility] [address] [place] [address] XRay Report Signed Patient: Owen MontanoMR#: [id number] : 1970Acct:[id number] Age/Sex: 52 / MADM Date: 03/30/23 Loc: HO.ED Attending Dr: Ordering Physician: Ada Mcintosh NP Date of Service: 03/30/23 Procedure(s): XR hip RT w PEL1V Accession Number(s): [id number] cc: Audrey Smith MD; Ada Mcintosh NP [...] in OV> 03/30/23 1117 DD/ 1046 TD/TT: [employer]: [facility] External Provider IMG XR PROCEDURES Final Result * Hm Colonoscopy (05/22/2021) Historical Provider HEALTH MAINTENANCE Final Result documented in this encounter Visit Diagnoses Not on filedocumented in this encounter Care Teams Pediatric Clinical Dietician Relationship Specialty Start Date End Date Audrey Smith MD 230 [place] [address] PCP - General Family Medicine 11/20/17 documented as of this encounter
--- OUTSIDE RECORDS SUMMARY | 2024-11-02 18:37 | XMS_ITS | Encounter Summary ---
Author Organization [employer] Address [address] [facility] 7t [place] [address] Care Team Providers Care Candy Decorator Name Role Phone Audrey Smith MD Primary Care Provide r Encounter Details Date Type Department Care Team (Late st Contact Info) Description 08/30/2022 Orders Only [facility] [address] [place] [address] Vane Cervantes MD [address] [place] [address] [phone] Muscle spasm (Primary Dx) Social History Tobacco [...] Description 11/03/2024 9:05 AM EDT Nurse Only [facility] [address] [place] [address] 12/10/2024 10:30 AM EDT Medication Management [facility] [address] [place] [address] [phone] 12/15/2024 9:15 AM EDT Office Visit [facility] [address] [place] [address] [phone] Audrey Smith MD 230 [place], [place] [phone] documented as of this encounter Visit Diagnoses Diagnosis Muscle spasm- Primary Spasm of muscle documented in this encounter Care Teams Candy Decorator Relationship Specialty Start Date End Date Audrey Smith MD 230 [place] [address] PCP - General Family Medicine 11/20/17 documented as of this encounter
--- OUTSIDE RECORDS SUMMARY | 2024-11-02 18:37 | XMS_ITS | Clinical Summary ---
Author Organization [facility] Address [address] [place] [address] Care Team Providers Care Machine Feeder Raw Stock Name Role Phone Unavailable Primary Care Provider [...]
--- OUTSIDE RECORDS SUMMARY | 2024-11-02 18:37 | XMS_ITS | Encounter Summary ---
Author Organization [employer] Address [address] [facility] [address] 7t [place] [address] Care Team Providers Care Refractory Products Supervisor Name Role Phone Audrey Smith MD Primary Care Provide r Encounter Details Date Type Department Care Team (Latest Contact Info) Description 11/02/2024 Travel Social History Tobacco Use Types Packs/Day Years [...] Description 11/03/2024 9:05 AM EDT Nurse Only [address] [address] 12/10/2024 10:30 AM EDT Medication Management [address] [address] 12/15/2024 9:15 AM EDT Office Visit [address] [address] Audrey Smith MD [address] [place] [address] documented as of this encounter Visit Diagnoses Not on filedocumented in this encounter Additional Health Concerns Assessment Noted Time PHQ-9 Depression Total Score: 0 05/21/20 24 9:38 AM EDT documented as of this encounter Care Teams Refractory Products Supervisor Relationship Specialty Start Date End Date Audrey Smith MD [address] [place] [phone] PCP - General Family Medicine 11/20/17 documented as of this encounter
--- OUTSIDE RECORDS SUMMARY | 2024-11-02 18:37 | XMS_ITS | Encounter Summary ---
Author Organization [employer] Address [address] [facility] 7t [place] [address] Care Team Providers Care Copy Center Specialist Name Role Phone Audrey Smith MD Primary Care Provide r Reason for Visit * Reason Comments Med Refill Encounter Details Date Type Department Care Team ([facility] st Contact Info) Description 10/22/2024 Refill [facility]INE 230 [place] [address] Audrey Smith MD 230 [place] [address] Diabetic polyneuropathy associated with type 2 diabetes [...] Description 11/03/2024 9:05 AM EDT Nurse Only [facility] [address] [place] [address] 12/10/2024 10:30 AM EDT Medication Management [address] [address] 12/15/2024 9:15 AM EDT Office Visit [address] [address] Audrey Smith MD [address] [place] [address] documented as of this encounter Visit Diagnoses Diagnosis Diabetic polyneuropathy associated with type 2 diabetes mellitus (CMS/HCC) documented in this encounter Additional Health Concerns Assessment Noted Time PHQ-9 Depression Total Score: 0 05/21/20 24 9:38 AM EDT documented as of this encounter Care Teams Copy Center Specialist Relationship Specialty Start Date End Date Audrey Smith MD [address] [place] [address] PCP - General Family Medicine 11/20/17 documented as of this encounter
--- OUTSIDE RECORDS SUMMARY | 2024-11-02 18:37 | XMS_ITS | Encounter Summary ---
Author Organization [employer] Address 75 [facility] 7t [place] [address] Care Team Providers Care Software Build Engineer Name Role Phone Audrey Smith MD Primary Care Provide r Reason for Visit * Reason Comments Med Refill Encounter Details Date Type Department Care Team ([facility] st Contact Info) Description 11/01/2024 Refill [facility]INE [address] [place] [address] Audrey Smith MD 230 [place] [address] Diabetic polyneuropathy associated with type 2 diabetes [...] 9:05 AM EDT Nurse Only [facility] [address] [place] [address] 12/10/2024 10:30 AM EDT Medication Management [address] [address] 12/15/2024 9:15 AM EDT Office Visit [address] [address] Audrey Smith MD [address] [place] [address] documented as of this encounter Visit Diagnoses Diagnosis Diabetic polyneuropathy associated with type 2 diabetes mellitus (CMS/HCC) documented in this encounter Additional Health Concerns Assessment Noted Time PHQ-9 Depression Total Score: 0 05/21/20 24 9:38 AM EDT documented as of this encounter Care Teams Software Build Engineer Relationship Specialty Start Date End Date Audrey Smith MD [address] [place] [address] PCP - General Family Medicine 11/20/17 documented as of this encounter
--- OUTSIDE RECORDS SUMMARY | 2024-11-02 18:37 | XMS_ITS | Encounter Summary ---
Author Organization [employer] Address [address] [facility] 7t [place] [address] Care Team Providers Care Real Estate Intern Name Role Phone Audrey Smith MD Primary Care Provide r Reason for Visit * Reason Comments Med Refill Encounter Details Date Type Department Care Team ([facility] Contact Info) Description 03/09/2023 Refill [facility] [address] [place] [address] Alice Huber MD 230 [place], [place] [phone] Type 2 diabetes mellitus without complication, unspecified whether technician terminal and repeater insulin use ([facility]) Social History Tobacco Use Types Packs/Day Years [...] Upcoming Encounters Date Type Department Care Team ([facility] Contact Info) Description 11/03/2024 9:05 AM EDT Nurse Only [facility] MEDICINE [address] [place] [address] [phone] 12/10/2024 10:30 AM EDT Medication Management [facility] MED[facility]INE [address] [place] [address] [phone] 12/15/2024 9:15 AM EDT Office Visit [facility] [address] [place] [address] [phone] Audrey Smith MD 230 [place], [place] [phone] documented as of this encounter Visit Diagnoses Diagnosis Type 2 diabetes mellitus without complication, unspecified whether retirement insulin use ([facility]) documented in this encounter Care Teams Real Estate Intern Relationship Specialty Start Date End Date Audrey Smith MD [address] [place], [place] [phone] PCP - General Family Medicine 11/20/17 documented as of this encounter
--- OUTSIDE RECORDS SUMMARY | 2024-11-02 18:37 | XMS_ITS | Data Portability ---
Author Organization [facility] [employer] [facility], [id number] Address [address] [facility] [address] [place] [address] Care Team Providers Care Hatchery Manager Name Role Phone ADRI REDDY Referring Provider MAINE MORELAND Patient Safety Coordinator FREDY MORENO Psychiatrist Assessment No assessment recorded. Plan of Treatment Reminders Order Date Submit Date Provider Last Modified By Organization Details Last Modified Time Details Appointments RUBY Isabel 15 025 11:30AM Rock Balderas MD Not available Not available Not available Lab None record ed. Referral None record ed. Procedures None record ed. Surgeries None record ed. Imaging None record ed. Medication Orders None record ed. Patient TargetsNo targets recorded. Patient InstructionsNo instructions recorded. Reason for Referral None Reported. Results Created Date Observation Date Name Description Value Unit Range Abnormal Flag Note LastModifiedBy Organization Detail LastModifiedTime 08/24/1908/24/2024 proce dures No observ ation record ed. [email or web address] [address], [address], 08/25/2024 09:45:35 08/24/19 25 08/24/2024 xr fluor o up to 1 hour See Note Ashleigh Owens , a member of [employer] [facility] belinda Name: OWEN PORTILLO GARRETT MCKEON LILIA Date of : 1970 Reason for Exam: pain Exam Date: 2024 [id number] EST Report Status : Final Orderi ng [...] Edit Transc ribed Date: 2024 13:[address], [address], 08/25/2024 09:45:35 Result Notes None recorded. Problems Name Problem SNOMED Code Status Onset Date Resolution Date Notes Provider Name and Address Organization Details Recorded Time Diabetic peripheral neuropathy 063493489 Active 025 Rock Balderas MD [facility] 11:30:01 Problem Notes None recorded. Procedures Surgical History None recorded. Imaging Results Imaging Date Name Status LastModified by Organiz ation Details LastModified Time 08/24/2024 procedures completed [address], [address], 08/25/2024 09:45:35 08/24/2024 xr fluoro up to 1 hour completed [address], [address], 08/25/2024 09:45:35 Procedure Notes None recorded. Medical Equipment None Reported. Allergies Allergen ID Allergen Name Allergen Category Reaction Reaction Severity Criticality Documentation Date Start Date Code Code System Note Provider Name and Address Organization Details Recorded Time 37471 No Allergy Informati on Available Not available Not available Not available Not available 08/31/2024 84726 UNK Comme nt: dfnam e: Rere e; dlnam e: Raymon en; ; Not Available [facility] 16:49:03 Medications Name Sig Start Date Stop [...] Available No t Available BD Regular Bevel [place] 18 gauge x 1 USE WITH testosteron [...] Available Not Available No t Available FreeStyle [place] Lite kit USE TWICE DAILY active Not [...] Updated DateTime 5 165.1 cm 26.3 kg/m2 35100.5 9 g 63 /min 99 % 99 % 98 [degF] 110 mm[Hg] 72 mm[Hg] Kailyn Trimble [facility] 5 11:18:47 Social History None recorded. Functional Status None recorded. Mental Status None recorded. Family History Nothing Reported. Medical History No medical history recorded. Past Encounters Encounter ID Performer Location Encounter Start Date Encounter Closed Date Diagnosis/Indication Diagnosis SNOMED-CT Code Diagnosis ICD10 Code Diagnosis Note [id number] Rock Balderas MD [id number] [address] [place] [address] 08/31/2024 09:37:10 08/31/2024 12:26:48 Diabetic peripheral neuropathy 537782275 E11.40 -patient with long-stand ing history of [...] tomorrow -his current psychiatri st (Dr. Moreno-- [facility]--[phone] ) -will coordinate with Dr. Davenport for permanent SCS implant; will need to hold plavix prior to this procedure as well (Dr. 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 Moreno-- [facility]--[phone] ) -35 minutes was used for chart [...] Member ID Guarantor Name 08/31/2024 1 [place] [facility] Owen Hurd [id number] Owen Hurd 11/02/2024 1 [place] [facility] Owen Hurd [id number] Owen Hurd Notes Date Note Type Note [...] Of note, patient is on PLAVIX (sees [facility]).? ? ?he reports that performing activities [...] applied to insertion sites. Rock Balderas MD [facility] [place] [facility] 11/02/2024 12:21:06 11/02/2024 text/html Owen Hurd is a pleasant 53 y.o. year old male, who has a past medical history of Diabetes mellitus (HCC), Disease of thyroid gland, Hypercholesteremia, Hypertension, and Sleep apnea. CAD s/p stentx3, who presents with moderate bilateral foot/ankle pain for several years. he denies any inciting events. Of note, patient is on PLAVIX (sees [facility]).? ? ?he reports that performing activities [...] SCS implant on 10/04/24. We had the safety representative from [email or web address] also present at today's visit. With additional [...] anesthesia. Incision sites are healing well. Rock Balderas MD [facility] [place] [facility] 11/02/2024 12:40:27
--- OUTSIDE RECORDS SUMMARY | 2024-11-02 18:37 | XMS_ITS | Encounter Summary ---
Author Organization [employer] Address [address] 7t [place] [address] Care Team Providers Care Traffic I Manager Name Role Phone Audrey Smith MD Primary Care Provide r Encounter Details Date Type Department Care Team (Late st Contact Info) Description 11/02/2024 Orders Only [facility] 230 [place] [address] Audrey Smith MD 230 [place] [address] Social History Tobacco Use Types Packs/Day Years [...] Description 11/03/2024 9:05 AM EDT Nurse Only [facility] [address] [place] [address] 12/10/2024 10:30 AM EDT Medication Management [facility] [address] [place] [address] 12/15/2024 9:15 AM EDT Office Visit [facility] [address] [place] [address] Audrey Smith MD [address] [place] [address] documented as of this encounter Procedures Procedure Name Priority Date/Time Associated Diagnosis Comments VITAMIN B12/FOLATE, SERUM PANEL Routine 11/02/2024 3:33 PM EDT documented in this encounter Results * Vitamin B12 (Cobalamin) and Folate Panel, Serum (11/02/2024 3:33 PM EDT) Vitamin B12 256 200 - 900 pg/mL [facility] Comment:NORMAL 200-900 PG/ML INDETERMINATE 160-199 PG/ML DEFICIENT < 160 PG/ML Folate 12.4 > or = 4.0 ng/mL [facility] Comment:Reference Values:> o r = 4.0 ng/mL< 4.0 ng/mL suggests folate deficiency Methotrexate, aminopterin and folinic acid(leucovorin) are chemotherapeutic agents whose molecularstructures are similar to folate; therefore, the Architectfolate assay cannot be used for patients using these drugs. 11/02/2024 3:33 PM EDT 11/02/2024 4:10 PM EDT us Audrey Holman MD LAB BLOOD ORDERABLES Final Result [facility] [address] [place] [phone] documented in this encounter Visit Diagnoses Not on filedocumented in this encounter Additional Health Concerns Assessment Noted Time PHQ-9 Depression Total Score: 0 05/21/20 24 9:38 AM EDT documented as of this encounter Care Teams Traffic I Manager Relationship Specialty Start Date End Date Audrey Smith MD 230 [place] [address] PCP - General Family Medicine 11/20/17 documented as of this encounter
[2024-11-06 16:23] LABS: Testosterone, Total 489 ng/dL (250-1100)
== END 2024-11-02 15:31 | disposition home or self-care (01) ==
LOC: HO.HHCL 15:30
PROVIDERS: Internal Medicine; Visit Provider Urology
DX: E11.65 Type 2 diabetes mellitus with hyperglycemia (principal); E29.1 Testicular hypofunction
CPT/HCPCS: 36415; 82607; 82746; 84403

== ENCOUNTER 2024-11-08 08:55 | Outpatient (REF) | payer MEDICAID, SELFPAY ==
--- OUTSIDE RECORDS SUMMARY | 2024-11-08 09:08 | XMS_ITS | Clinical Summary ---
Author Organization [address] [facility] Address [address] [place] [address] Phone Care Team Providers Care Supervisor Fruit Grading Name Role Phone Audrey Smith MD Primary Care Provide r Allergies No known active allergies Medications diclofenac (VOLTAREN) 1 % topical gel Apply 4 g topically 2 times daily. 4 Active aspirin 81 mg EC tablet Take [...] Max Daily Amount: 30 mg 20 capsule 5 Active blood sugar diagnostic (FreeStyle Lite Strips) test strip USE DIRECTED TO TEST BLOOD SUGAR TWICE DAILY 5 Active Procto-Med HC 2.5 % rectal cream INSERT 1 APPLICATORFUL RECTALLY TWICE DAILY NEEDED FOR PAIN 5 Active Active Problems Problem Noted Date Diagnosed Date [...] not requiring any pain medication. Sarbjit from [employer] is here as well to go over [...] pain med refills today. We used [employer] interpreter Leeanna #[id number], Morgan #[id number]. Chronic pain syndrome 09/21/2024 Diabetic neuropathy, painful ([facility] V24, CMS/H CC V28) 09/14/2024 Assessment & Plan (09/14/2024 4:44 PM EST): I reviewed the steps involved in placement of the spinal cord stimulator leads and generator with the patient in conjunction with Sarbjit the ambulatory service representative from [employer] and a wet suit gluer. I demonstrated the position of each incision [...] hyperglycemia, without long-term current use of insulin ([facility] V24, [facility] V28) 12/04/2022 Stented coronary artery 11/20/2017 Essential hypertension 11/20/2017 Anxiety 11/20/2017 Acquired hypothyroidism 11/20/2017 Encounters Date Type Department Care Team Description 11/01/2024 9:15 AM EDT Office Visit Orthopedic Surgery [facility] 250 175 [facility] 250 [place] [phone] Aaron Graves, DPM Diabetic mononeuropathy simplex ([facility] V24, [facility] V28) (Primary Dx); Primary osteoarthritis of both feet 10/19/2024 10:25 AM EDT - 10/19/2024 11:59 PM EDT Hospital Encounter [facility] Xray [address] [place] [phone] S/P insertion of spinal cord stimulator Discharge Disposition: Home or Self Care 10/15/2024 2:15 PM EDT Office Visit Neurosurgery [facility] [address] [address] Adali Hogue PA S/P insertion of spinal cord stimulator (Primary Dx) 10/04/2024 10:35 AM EDT Anesthesia Event [facility] Main OR [address] [place] [address] Erwin Pelletier MD Claudio, Raymund, JOCE 10/04/2024 10:30 AM EDT - 10/04/2024 12:00 PM EDT Surgery [facility] Main OR [address] [place] [address] Cara Davenport MD placement of spinal cord stim(left) including leads on to be done with Dr. Parsons [39746 (CPT??) +1 more] 10/04/2024 8:28 AM EDT - 10/04/2024 3:49 PM EDT Hospital Encounter [facility] Main OR [address] [place] [phone] aCra Davenport MD Discharge Disposition: Home or Self Care 10/04/2024 7:05 AM EDT - 10/04/2024 11:59 PM EDT Hospital Encounter [facility] Xray [address] [place] [address] Pain Discharge Disposition: Home or Self Care 09/14/2024 3:15 PM EST Office Visit Neurosurgery [facility] [address] [address] Cara Davenport MD Diabetic neuropathy, painful (CMS/HCC V24, CMS/HCC V28) (Primary Dx) 08/24/2024 9:47 AM EST Anesthesia Event [facility] Pain Management [address] [place] [address] Jonatan Alvarado DO 08/24/2024 7:08 AM EST - 08/24/2024 11:59 PM EST Hospital Encounter [facility] Pain Management [address] [place] [address] Rock Parsons MD Walsh, Michael, DO Weiss, Ashley, CRNA Type 2 diabetes mellitus with diabetic polyneuropathy, unspecified whether alf insulin use ([facility]) [E11.42] (Primary Dx); Type 2 diabetes mellitus with diabetic polyneuropathy ([facility] V24, CMS/HCC V28); Peripheral polyneuropathy [G62.9] Discharge Disposition: Home or Self Care 08/24/2024 6:05 AM EST - 08/24/2024 11:59 PM EST Hospital Encounter [facility] Xray [address] [place] [address] Pain Discharge Disposition: Home or Self Care from Last 3 Months Immunizations Name Administration Dates Next Due COVID-19 (Moderna/Spikevax) 12yo and older 07/10/2022 Hepatitis B (Japrqcv-R-Jbdzl , Recombivax HB-Adult) 19yo and older 12/07/2020,01/25/2019,12/25/2018 Influenza Quadrivalent, 0.5m l, preservative free (Fluarix; FluLaval; Fluzone) ages 6mo and older (Afluria) 3yo and older 05/16/2023,04/18/2022,04/13/2021,2019 Influenza Quadrivalent, with preservative (Fluzone; Afluria) 6mo and older 05/24/2019,04/07/2018 Influenza trivalent, 0.5mL, preservative free (Fluarix; FluLaval; Fluzone) ages 6mo and older (Afluria) 3 years and older 05/21/2024 Blippex (ages 12 & older) ADDY S-CoV-2 COVID-19, [...] IMPLANT 10/04/2024 Dr. Davenport and Dr. Parsons, [facility] Medical History Medical History Date Comments Diabetes mellitus ([facility] V24, [facility] V28) Hypertension Disease of thyroid gland Hypercholesteremia [...] AM EDT Office Visit Orthopedic Surgery [place] [address] [phone] Aaron Graves, NEFTALI [address] [address] Health Maintenance Due Date Last Done Comments [...] this topic Medical Devices Implanted Type Area Drill Press Set Up Operator Radial Device Identifier Shelf Expiration Date Model / Serial / Lot Lead Linear Trial St - [id number] - [id number] Implanted:Qty : 1 on 08/24/2024 by Rock Parsons MD at [facility] Neurostim Right: Back [employer] 03/23/2026 [id number] / [id number] / [id number] Lead Linear Trial St - [id number] - [id number] Implanted:Qty : 1 on 08/24/2024 by Rock Parsons MD at [facility] Neurostim Left: Back [employer] 03/15/2026 [id number] / [id number] / [id number] Generator Implant Pulse Ww Alpha - [id number] - [id number] Implanted:Qty : 1 on 10/04/2024 by Cara Davenport MD at [facility] Neurostim Left: Back [employer] [id number] 06/22/2026 [id number] / [id number] / [id number] Powder Surgifoam Absorb Gel - Sna - [id number] Implanted:Qty : 1 on 10/04/2024 by Cara Davenport MD at [facility] [employer] Left: Back [employer] [id number] 06/28/2026 1978 / [id number] / [id number] Linearv Contact Lead Set Implanted:Qty : 1 on 10/04/2024 by Cara Davenport MD at [facility] Left: Back [employer] 08/13/2026 [id number] / [id number] / [id number] Linear Contact Lead Kit Implanted:Qty : 1 on 10/04/2024 by Cara Davenport MD at [facility] Left: Back [employer] 08/13/2026 [id number] / [id number] / [id number] Procedures Procedure Name Priority Date/Time Associated Diagnosis Comments XR LUMBAR SPINE 2-3 VIEWS Routine 10/19/2024 11:21 AM EDT S/P insertion of spinal cord stimulator POCT GLUCOSE BLOOD Routine 10/04/2024 1: 33 PM EDT XR LUMBAR SPINE 2-3 VIEWS Routine 10/04/2024 12:21 PM EDT Pain TH AN ENDOTRACHEAL(NO CHARGE) Routine 10/04/2024 11:20 AM EDT IL INS/REPL SPN NSTIM PG/REC REQ PCKT CREATION BTW ELTRD ARRAY & PG/REC 10/04/2024 10:40 AM EDT Chronic pain syndrome Case Notes [employer] spinal cord stim IL IMPLANTATION NEUROSTIMULATOR ELECTRODE ARRAY EPIDURAL PERCUTANEOUS 10/04/2024 10:40 AM EDT Chronic pain syndrome Case Notes [employer] spinal cord stim POCT GLUCOSE BLOOD [...] Signed Date: 10/19/2024 13:39 ET Workstation ID: [id number] Transcribed By: Self Edit Transcribed Date: 10/19/2024 [...] leads appear to be terminating at the Z03atueh. The leads appear intact. I cannot confirm integrity of the L5 pars interarticulares. Bilateral L6orergwktgtmsa may be present. IMPRESSION: There are 2 leads projecting in the lower spinal canal. They terminateposterior to the T12 and L1 levels. On 10/04/24 both appear to terminate atthe T12 level. -------- FINAL REPORT -------- Dictated By: Horace Morales Dictated Date: 10/19/2024 13:35 ET Assigned Physician: Horace Morales Reviewed and Electronically Signed By: Horace Morales Signed Date: 10/19/2024 13:39 ET Workstation ID: [id number] Transcribed By: Self Edit Transcribed Date: 10/19/2024 13:35 ET us Adali ETIENNE IMG XR PROCEDURES Final Re sult * (ABNORMAL) POCT Glucose, blood (10/04/2024 1:33 PM EDT) Only the most recent of3 resultswithin the time period is included. Glucose POCT 213(H) 70 - 100 mg/dL 10/04/2024 1:34 PM EDT [facility] Blood Capillary blood specimen / Unknown 10/04/2024 1:33 PM EDT 10/04/2024 1:35 PM EDT us Cara Davenport MD LAB POINT OF CARE TE ST DOCKED DEVICE UNSOLICITED RESULTS Final Result [facility] [address] [place] [address], [place] [phone] * TH AN ENDOTRACHEAL(NO CHARGE) (10/04/2024 11:20 AM EDT) Narrative Darnell Lux CRNA - 10/04/2024 11:20 AM EDT Darnell Lux CRNA ? 10/04/2024 11:21 AM General Information [...] NC -------- FINAL REPORT -------- Dictated By: Virgniia Paz Dictated Date: 08/24/2024 13:23 ET Assigned Physician: Virginia Paz Reviewed and Electronically Signed By: Virginia Paz Signed Date: 08/24/2024 13:23 ET Workstation ID: [id number] Transcribed By: Self Edit Transcribed Date: 08/24/2024 [...] Signed Date: 08/24/2024 13:23 ET Workstation ID: [id number] Transcribed By: Self Edit Transcribed Date: 08/24/2024 13:23 ET us Rock Parsons MD IMG FLUOROSCOPY PROCEDURES Fin al Result from Last 3 Months Insurance , [address] [place] [address] MEDICA[place] - [place] , [address] [place] [address] Advance Directives * Full Code - Default [...] currently active code status orders. Care Teams Supervisor Fruit Grading Relationship Specialty Start Date End Date Audrey Smith MD [address] [phone] PCP - General 07/01/23
--- OUTSIDE RECORDS SUMMARY | 2024-11-08 09:08 | XMS_ITS | Encounter Summary ---
Author Organization [employer] Address [address] [facility] 7t [place] [address] Care Team Providers Care Fisheries Diver Name Role Phone Audrey Smith MD Primary Care Provide r Reason for Visit * Reason Comments Med Refill Encounter Details Date Type Department Care Team ([facility] Contact Info) Description 03/09/2023 Refill [facility] MED & PEDS [address] [place], [place] [phone] Alice Huber MD [address] [place], [place] [phone] Type 2 diabetes mellitus without complication, unspecified whether tobacco dipper insulin use ([facility]) Social History Tobacco Use Types Packs/Day Years [...] Upcoming Encounters Date Type Department Care Team ([facility] Contact Info) Description 12/10/2024 10:30 AM EDT Medication Management [facility] MEDICINE [address] [place] [phone] 12/15/2024 9:15 AM EDT Office Visit [facility] [address] [place] [phone] Audrey Smith MD [address] [place], [place] [phone] 05/05/2025 9:00 AM EDT Immunization [facility] [address] [place] [address] documented as of this encounter Visit Diagnoses Diagnosis Type 2 diabetes mellitus without complication, unspecified whether tobacco dipper insulin use ([facility]) documented in this encounter Care Teams Fisheries Diver Relationship Specialty Start Date End Date Audrey Smith MD [address] [place] [address] PCP - General Family Medicine 11/20/17 documented as of this encounter
--- OUTSIDE RECORDS SUMMARY | 2024-11-08 09:08 | XMS_ITS | Clinical Summary ---
Author Organization [facility] Address [address] [place] [address] Care Team Providers Care Uke Driver Name Role Phone Unavailable Primary Care Provider [...]
--- OUTSIDE RECORDS SUMMARY | 2024-11-08 09:08 | XMS_ITS | Encounter Summary ---
Author Organization [employer] [facility] Address [address] [place] [address] 7t [place] [address] Care Team Providers Care Automotive Engineering Teacher Name Role Phone Audrey Smith MD Primary Care Provide r Encounter Details Date Type Department Care Team (Late Contact Info) Description 03/27/2023 Orders Only [facility] MEDICINE [address] [place] [phone] Provider, MD Natasha Social History Tobacco Use [...] Department Care Team (Late Contact Info) Description 12/10/2024 10:30 AM EDT Medication Management [address] [address] 12/15/2024 9:15 AM EDT Office Visit [address] [address] Audrey Smith MD [address] [place] [address] 05/05/2025 9:00 AM EDT Immunization [address] [address] documented as of this encounter Procedures Procedure [...] EDT Narrative 03/30/2023 11:21 AM EDT ? [facility] ?[address] ?[place] [address] ?XRay Report ? Signed ? Patient: Owen Montano ?MR#: ?? [id number] ? : 1970 ?Acct:[id number] ? Age/Sex: 52 / M ?ADM Date: 03/30/23 ? Loc: HO.ED ? Attending Dr: ? Ordering Physician: Ada Mcintosh NP ?? Date of Service: 03/30/23 ?? Procedure(s): XR hip RT w PEL1V ?? Accession Number(s): [id number] ? cc: Audrey Smith MD; Ada Mcintosh [...] 1117 ? DD/ 1046 ? TD/TT: ? Hearing Examiner: ? Procedure Note Jamshid, Leigh - 03/30/2023 [facility] [address] [place] [address] XRay Report Signed Patient: Owen MontanoMR#: [id number] : 1970Acct:[id number] Age/Sex: 52 / MADM Date: 03/30/23 Loc: HO.ED Attending Dr: Ordering Physician: Ada Mcintosh NP Date of Service: 03/30/23 Procedure(s): XR hip RT w PEL1V Accession Number(s): [id number] cc: Audrey Smith MD; Ada Mcintosh NP [...] in OV> 03/30/23 1117 DD/ 1046 TD/TT: Hearing Examiner: [facility] External Provider IMG XR PROCEDURES Final Result * Hm Colonoscopy (05/22/2021) Historical Provider HEALTH MAINTENANCE Final Result documented in this encounter Visit Diagnoses Not on filedocumented in this encounter Care Teams Automotive Engineering Teacher Relationship Specialty Start Date End Date Audrey Smith MD [address] [place] [phone] PCP - General Family Medicine 11/20/17 documented as of this encounter
--- OUTSIDE RECORDS SUMMARY | 2024-11-08 09:08 | XMS_ITS | Encounter Summary ---
Author Organization [employer] Address [address] 7[address] [place] [address] Care Team Providers Care Direct Support Staff Member Name Role Phone Audrey Smith MD Primary Care Provide r Encounter Details Date Type Department Care Team (Late st Contact Info) Description 11/03/2024 9:05 AM EDT Nurse Only [facility] MEDICINE 230 [place] [address] Tori Templeton LPN Encounter for immunization (Primary Dx) Social History Tobacco Use Types [...] as of this encounter Progress Notes * Tori Templeton LPN - 11/03/2024 9:05 AM EDT Subjective Patient ID: Owen Hurd is a 53 y.o. male who presents here today to receive their 1st Hepatitis A vaccine. Patient record and self reporting indicate that there are no contraindications to vaccination. Pt advised that pt may experience redness/swelling/tenderness at injection site. Pt also educated as to potential side effects which could include headache/tiredness/fever/loss of appetite. Pt expresses understanding and consents to vaccination and to remaining for 15 minutes observation post vaccine administration. documented in this encounter Plan of Treatment Upcoming Encounters Date Type Department Care Team (Late st Contact Info) Description 12/10/2024 10:30 AM EDT Medication Management [facility] MEDICINE [address] [place] [phone] 12/15/2024 9:15 AM EDT Office Visit [facility] MED[facility] [address] [place] [address] Audrey Smith MD 230 [place] [address] 05/05/2025 9:00 AM EDT Immunization [facility] MED[facility] [address] [place] [address] documented as of this encounter Visit Diagnoses Diagnosis Encounter for immunization- Primary documented in this encounter Additional Health Concerns Assessment Noted Time PHQ-9 Depression Total Score: 0 05/21/20 24 9:38 AM EDT documented as of this encounter Care Teams Direct Support Staff Member Relationship Specialty Start Date End Date Audrey Smith MD 230 [place] [address] PCP - General Family Medicine 11/20/17 documented as of this encounter
--- OUTSIDE RECORDS SUMMARY | 2024-11-08 09:08 | XMS_ITS | Encounter Summary ---
Author Organization [employer] Address [address] [place] [address] Care Team Providers Care Telephone Clerk Telegraph Office Name Role Phone Audrey Smith MD Primary Care Provide r Encounter Details Date Type Department Care Team (Latest Contact Info) Description 11/03/2024 Travel Social History Tobacco Use Types Packs/Day [...] Description 12/10/2024 10:30 AM EDT Medication Management [address] [address] 12/15/2024 9:15 AM EDT Office Visit [address] [address] Audrey Smith MD [address] [place] [address] 05/05/2025 9:00 AM EDT Immunization [address] [address] documented as of this encounter Visit Diagnoses Not on filedocumented in this encounter Additional Health Concerns Assessment Noted Time PHQ-9 Depression Total Score: 0 05/21/20 24 9:38 AM EDT documented as of this encounter Care Teams Telephone Clerk Telegraph Office Relationship Specialty Start Date End Date Audrey Smith MD [address] [place] [phone] PCP - General Family Medicine 11/20/17 documented as of this encounter
--- OUTSIDE RECORDS SUMMARY | 2024-11-08 09:09 | XMS_ITS | Encounter Summary ---
Author Organization [employer] Address [address] [facility] 7t [place] [address] Care Team Providers Care Ballistics Expert Forensic Name Role Phone Audrey Smith MD Primary Care Provide r Encounter Details Date Type Department Care Team (Late st Contact Info) Description 10/10/2022 Orders Only [facility] [address] [place] [phone] Uzma Tyler LPN Social History Tobacco Use [...] Description 12/10/2024 10:30 AM EDT Medication Management [address] [address] 12/15/2024 9:15 AM EDT Office Visit [facility] [address] [place] [address] Audrey Smith MD [address] [place] [address] 05/05/2025 9:00 AM EDT Immunization [facility] [address] [place] [phone] documented as of this encounter Visit Diagnoses Not on filedocumented in this encounter Care Teams Ballistics Expert Forensic Relationship Specialty Start Date End Date Audrey Smith MD 230 [place] [address] PCP - General Family Medicine 11/20/17 documented as of this encounter
--- OUTSIDE RECORDS SUMMARY | 2024-11-08 09:09 | XMS_ITS | Encounter Summary ---
Author Organization [employer] Address [address] [facility] 7t [place] [address] Care Team Providers Care Oracle Financial Application Developer Name Role Phone Audrey Smith MD Primary Care Provide r Reason for Visit * Reason Comments Med Refill Encounter Details Date Type Department Care Team (Late st Contact Info) Description 01/10/[address] [facility] MEDICINE [address] [place] [phone] Name, MD Sameer [address] [place] [address] [phone] Social History Tobacco Use Types Packs/Day Years [...] Description 12/10/2024 10:30 AM EDT Medication Management [facility] MEDICINE [address] [place] [address] [phone] 12/15/2024 9:15 AM EDT Office Visit [facility] MEDICINE [address] [place] [phone] Audrey Smith MD 230 [place] [address] 05/05/2025 9:00 AM EDT Immunization [facility] 230 [place] [address] documented as of this encounter Visit Diagnoses Not on filedocumented in this encounter Care Teams Oracle Financial Application Developer Relationship Specialty Start Date End Date Audrey Smith MD 230 [place] [address] PCP - General Family Medicine 11/20/17 documented as of this encounter
--- OUTSIDE RECORDS SUMMARY | 2024-11-08 09:09 | XMS_ITS | Data Portability ---
Author Organization [facility] [employer] [facility], [id number] Address [address] [place] [address] Care Team Providers Care Addictions Therapist Name Role Phone ADRI REDDY Referring Provider [phone] MAINE MORELAND Hand [employer] FREDY MORENO Psychiatrist Assessment No assessment recorded. [...] proce charleses No observ ation record ed. [email or web address] [address], [address], 08/25/2024 09:45:35 08/24/1908/24/2024 xr fluor o up to 1 hour See Note [facility] , a member of [employer] [facility] Name: OWEN LOUIA LILIA Date of : 1970 Reason for Exam: pain Exam Date: 2024 [id number] EST Report Status : Final Orderi ng [...] Edit Transc ribed Date: 2024 13:[address], [address], 08/25/2024 09:45:35 Result Notes None recorded. Problems Name Problem SNOMED Code Status Onset Date Resolution Date Notes Provider Name and Address Organization Details Recorded Time Diabetic peripheral neuropathy 606418070 Active 025 Rock Baledras MD [facility], [place] - [facility] 11:30:01 Problem Notes None recorded. Procedures Surgical History None recorded. Imaging Results Imaging Date Name Status LastModified by Organiz ation Details LastModified Time 08/24/2024 procedures completed [address], [address], 08/25/2024 09:45:35 08/24/2024 xr fluoro up to [address], [address], 08/25/2024 09:45:35 Procedure Notes None recorded. Medical Equipment None Reported. Allergies Allergen ID Allergen Name Allergen Category Reaction Reaction Severity Criticality Documentation Date Start Date Code Code System Note Provider Name and Address Organization Details Recorded Time 63822 No Allergy Informati on Available Not available Not available Not available Not available 08/31/2024 95847 UNK Comme nt: shyanne e: Rere st e: Raymon en; ; Not Available [facility] 5 16:49:03 Medications Name Sig Start [...] Available No t Available BD Regular Bevel Gordon 18 gauge x 1 USE WITH testosteron [...] Available Not Available No t Available FreeStyle Florence Lite kit USE TWICE DAILY active Not [...] Updated DateTime 5 165.1 cm 26.3 kg/m2 45731.5 9 g 63 /min 99 % 99 % 98 [degF] 110 mm[Hg] 72 mm[Hg] Kailyn [facility] 5 11:18:47 Social History None recorded. Functional Status None recorded. Mental Status None recorded. Family History Nothing Reported. Medical History No medical history recorded. Past Encounters Encounter ID Performer Location Encounter Start Date Encounter Closed Date Diagnosis/Indication Diagnosis SNOMED-CT Code Diagnosis ICD10 Code Diagnosis Note [id number] Rock Balderas MD [id number] [place] [address] [place] [address] 08/31/2024 09:37:10 08/31/2024 12:26:48 Diabetic peripheral neuropathy [id number] E11.40 -patient with long-stand ing history of [...] tomorrow -his current psychiatri st (Dr. Moreno-- [facility]--[phone] ) -will coordinate with Dr. Davenport for permanent SCS implant; will need to hold plavix prior to this procedure as well (Dr. Gary patel--[facility] ) -20 minutes was used for chart review, interviewi ng/examini ng, and counseling the patient during today's visit, and patient denies having any other further questions/ concerns [id number] Rock Balderas MD [id number] A_[facility] ie [address] [place] [address] 11/02/2024 11:11:23 11/02/2024 13:04:56 Diabetic peripheral neuropathy [id number] E11.40 -patient with long-stand ing history of bilateral foot pain, likely 2/2 diabetes and HTN induced neuropathy -patient did quite well with SCS trial, and underwent SCS implant on 10/04/24; currently reports that pain is significan tly improved -his current psychiatri st (Dr. Moreno-- [facility]--[phone] ) -35 minutes was used for chart [...] Price Member ID Guarantor Name 08/31/2024 1 [place] [facility] Owen Hurd [id number] Owen Hurd 11/02/2024 1 [place] [facility] Owen Hurd [id number] Owen Hurd Notes Date Note Type Note [...] Of note, patient is on PLAVIX (sees [facility]).? ? ?he reports that performing activities [...] applied to insertion sites. Rock Balderas MD [facility], [place] - [facility] 11/02/2024 12:21:06 11/02/2024 text/html Owen Hurd is a pleasant 53 y.o. year old male, who has a past medical history of Diabetes mellitus (HCC), Disease of thyroid gland, Hypercholesteremia, Hypertension, and Sleep apnea. CAD s/p stentx3, who presents with moderate bilateral foot/ankle pain for several years. he denies any inciting events. Of note, patient is on PLAVIX (sees [facility]).? ? ?he reports that performing activities [...] SCS implant on 10/04/24. We had the logistics service representative from [email or web address] also present at today's visit. With additional [...] sites are healing well. Rock Balderas MD [facility], [place] - [facility] 11/02/2024 12:40:27
--- OUTSIDE RECORDS SUMMARY | 2024-11-08 09:09 | XMS_ITS | Clinical Summary ---
Author Organization [employer] Address [address] [facility] 7[address] [place] [address] Care Team Providers Care Electronic Warfare Specialist Name Role Phone Audrey Smith MD [...] MOUTH EVERYDAY AT NOON 023 Active Zenpep 5000-96497 units capsule delayed-release particles capsule Take 1 capsule by mouth 4 times daily. 023 Active promethazine (Phenergan) 25 MG tablet TAKE 1 TABLET BY MOUTH EVERY TWELVE HOURS NEEDED FOR NAUSEA AND VOMITING 023 Active risperiDONE (RisperDAL) 4 MG tablet TAKE 1 TABLET BY MOUTH TWICE DAILY AT NOON AND BEDTIME 05/03/2 023 Active rosuvastatin (Crestor) 20 MG tablet Take 20 mg by mouth at bedtime. Active sertraline (Zoloft) 50 MG tablet TAKE 1 TABLET BY MOUTH EVERYDAY AT NOON Active tamsulosin (Flomax) 0.4 MG 24 hr capsule Take 0.4 mg by mouth at bedtime. Active TRUEplus Lancets 33G miscIndications: Type 2 diabetes mellitus with other specified complication, without long-term current use of insulin ([facility]) TEST BLOOD SUGAR TWICE DAILY 100 each Active Blood Glucose Monitoring Suppl (FreeStyle Lite) w/Device kitIndications:T ype 2 diabetes mellitus with hyperglycemia, without long-term current use of insulin ([facility]) 1 kit 2 times daily. 1 kit Active FREESTYLE LITE test stripIndications :Type 2 diabetes mellitus with hyperglycemia, without long-term current use of insulin ([facility]) TEST BLOOD SUGAR TWICE DAILY 50 strip 024 Active sertraline (Zoloft) 100 MG tablet TAKE 2 TABLETS BY MOUTH ONCE DAILY AT NOON Active imipramine (Tofranil) 10 MG tablet Take 10 mg by mouth at bedtime. Active LORazepam (Ativan) 2 MG tablet Take 2 mg by mouth at bedtime. Active fexofenadine (Mila) 180 MG tablet TAKE 1 TABLET BY MOUTH EVERYDAY AT NOON Active famotidine (Pepcid) 40 MG tablet Take 40 mg by mouth 2 times daily. Active aspirin (Aspirin Low Dose) 81 MG EC tabletIndication s:Coronary artery disease involving duckwater coronary artery of duckwater heart, unspecified whether angina present TAKE 1 TABLET BY MOUTH EVERYDAY AT NOON 90 tablet 1 Active clopidogrel (Plavix) 75 MG tabletIndication s:Coronary artery disease involving duckwater coronary artery of duckwater heart, unspecified whether angina present TAKE 1 TABLET BY MOUTH EVERYDAY AT NOON 90 tablet 1 024 Active levothyroxine (Synthroid, Levoxyl) 25 MCG tabletIndication s:Hypothyroidism , unspecified type TAKE 1 TABLET BY MOUTH EVERY MORNING BEFORE A MEAL 90 tablet 1 11/14/2 024 Active metFORMIN (Glucophage) 1000 MG tablet TAKE 1 TABLET BY MOUTH TWICE DAILY AT NOON AND IN THE EVENING CF 180 tablet 1 024 Active metoprolol succinate XL (Toprol-XL) 50 MG 24 hr tabletIndication s:Coronary artery disease involving duckwater coronary artery of duckwater heart, unspecified whether angina present TAKE 1 [...] and bedtime 90 capsule 1 025 Active Diclofenac Sodium 1 % gel Apply 4 g topically 2 times daily. 024 Active naloxone (Narcan) 4 mg/0.1 mL nasal spray Administer 4 mg into affected nostril(s) if needed for opioid reversal. 025 Active oxyCODONE (Roxicodone) 5 MG immediate release tablet TAKE 1 TO 2 TABLETS BY MOUTH EVERY 8 HOURS NEEDED FOR SEVERE PAIN 025 Active testosterone (Testopel) implant Inject under the skin every 3 (three) months. Administered at office ([facility]) Active B-D 3CC LUER-CHRISTINE SYR 01JT2-9/2 21G X 1-2 3 ML misc USE DIRECTED 023 2024 Discontinued( Med list cleanup (will not trigger notification to Pharmacy)) testosterone cypionate (Depo-Testostero ne) 200 MG/ML injection INJECT 0.7 ML (140MG) INTRAMUSCULARLY EVERY 2 WEEKS 023 2024 Discontinued( Med list cleanup (will not trigger notification to Pharmacy)) ibuprofen 600 MG tablet TAKE 1 TABLET BY MOUTH THREE TIMES DAILY WITH FOOD 30 tablet 024 2024 Discontinued( Med list cleanup (will not trigger notification to Pharmacy)) lidocaine (Lidoderm) 5 % patch APPLY 1 PATCH TOPICALLY TO SKIN, LEAVE ON FOR 12 HOURS AND OFF FOR 12 HOURS DIRECTED 30 patch 1 024 2024 Discontinued( Med list cleanup (will not trigger notification to Pharmacy)) methocarbamol (Robaxin) 750 MG tablet TAKE 1 TABLET BY MOUTH EVERY TWELVE HOURS 024 2024 Discontinued( Med list cleanup (will not trigger notification to Pharmacy)) Reguloid 0.52 g capsule Take 1 capsule by mouth 2 times daily. 024 2024 Discontinued( Med list cleanup (will not trigger notification to Pharmacy)) B-D SYRINGE LUER-CHRISTINE 1CC 1 ML misc USE DIRECTED 024 2024 Discontinued( Med list cleanup (will not trigger notification to Pharmacy)) Easy Touch Hypodermic Needle 22G X 1-/2 misc USE FOR INJECT testosterone 024 2024 Discontinued( Med list cleanup (will not trigger notification to Pharmacy)) BD Hypodermic Needle 18G X 1 misc USE WITH testosterone 024 2024 Discontinued( Med list cleanup (will not trigger notification to Pharmacy)) gabapentin (Neurontin) 400 MG capsuleIndicatio ns:Diabetic polyneuropathy [...] tells me she he was out of [facility] because of insurance and just started on [...] of colon 11/20/2017 Hyperuricemia 11/20/2017 CAD in duckwater artery 11/20/2017 Benign prostatic hyperplasia with nocturia [...] will continue with same medications, I extensibly certified alcohol and drug counselor him about diabetic diet and let him know his glucose also will likely go down after back injections wears out - Encounters Date Type Department Care Team Description 11/03/2024 9:05 AM EDT Nurse Only [facility] [address] [facility] [place] [address] Tori Templeton LPN Encounter for immunization (Primary Dx) 11/03/2024 Travel 11/02/2024 Orders Only [facility] [address] [facility] [place] [address] Audrey Smith MD 11/02/2024 Travel 11/01/2024 Refill [facility] [address] [facility], [place] [phone] Audrey Smith MD Diabetic polyneuropathy associated with type 2 diabetes mellitus ([facility]/HCC) 11/01/2024 Refill [facility] [address] [facility] [place] [address] Audrey Smith MD Diabetic polyneuropathy associated with type 2 diabetes mellitus ([facility]/HCC) 10/26/2024 Telephone [facility] [address] [place] [address] Audrey Smith MD 10/22/2024 Refill [facility] [address] [place] [address] Audrey Smith MD Diabetic polyneuropathy associated with type 2 diabetes mellitus (CMS/HCC) 10/01/2024 Population Health Risk Score [facility] (C3) Department [address] [place] [phone] Provider, Population Health Generic 09/17/2024 10:00 AM EST Office Visit [facility] [address] [place] [phone] Audrey Smith MD Essential hypertension (Primary Dx); Type 2 diabetes mellitus with hyperglycemia, without long-term current use of insulin (CMS/HCC) 09/17/2024 Travel 09/15/2024 Orders Only GENERIC EXTERNAL DATA DEPARTMENT Provider, Generic External Data 09/03/2024 Patient Outreach [facility] [address] [place] [address] Audrey Smith MD Pre-visit Planning (SDOH screening negative and tobacco screening negative) 08/30/2024 Orders Only GENERIC EXTERNAL DATA DEPARTMENT Provider, Generic External Data 08/26/2024 Orders Only [address] [address] Audrey Smith MD Type 2 diabetes mellitus with hyperglycemia, without long-term current use of insulin (CMS/HCC) (Primary Dx) 08/26/2024 Refill [facility] [address] [place] [address] Audrey Smith MD Diabetic polyneuropathy associated with type 2 diabetes mellitus (CMS/HCC) 08/25/2024 Orders Only GENERIC EXTERNAL DATA DEPARTMENT Provider, Generic External Data from Last 3 Months Immunizations Name Administration Dates Next Due Hep A, Adult 11/03/2024 Hep B, adult 12/07/2020,01/25/2019,12/25/2018 Influenza injectable quadriv [...] Description 12/10/2024 10:30 AM EDT Medication Management [address] [address] 12/15/2024 9:15 AM EDT Office Visit [address] [address] Audrey Smith MD [address] [place] [address] 05/05/2025 9:00 AM EDT Immunization [address] [address] Health Maintenance Due Date Last Done Comments CT Colonography 1970 FIT DNA/Cologuard 1970 FIT 1970 FOBT 1970 Sigmoidoscopy 1970 Diabetes: Foot Exam 11/07/1979 Hepatitis C Screening 11/07/1987 Colonoscopy 05/22/2023 05/22/2021 Colorectal Cancer Screening 05/22/2023 Diabetes: Hemoglobin A1C 12/15/2024 025, 05/21/2024, 02/26/2024, Additional history exists Hepatitis A Vaccines (2 of 2 - Risk 2-dose series) 05/05/2025 11/03/2024 Alcohol/Substance Use Screening 05/21/2025 05/21/2024 Depression Screening [...] without long-term current use of insulin ([facility]) POCT GLUCOSE Routine 09/17/2024 9:49 AM EST Type 2 diabetes mellitus with hyperglycemia, without long-term current use of insulin (CMS/[facility]) TESTOSTERONE, TOTAL, MALES (ADULT), IA Routine 09/15/2024 7:28 AM EST HEMATOXYLIN AND EOSIN STAIN Routine 08/30/2024 12:43 PM EST GLUCOSE, WHOLE BLOOD Routine 08/30/2024 11:15 AM EST LIPID PANEL, STANDARD Routine 08/25/2024 7:10 AM EST ALBUMIN, RANDOM URINE W/CREATININE Routine 06/02/2024 8:55 AM EST Type 2 diabetes mellitus with hyperglycemia, without long-term current use of insulin ([facility]) HM COLONOSCOPY Routine 05/22/2021 ZZZ HISTORICAL HIV AB/AG Routine 10/01/2019 10:28 AM EDT from Last 3 Months or Most Recently Relevant to Health Maintenance Results * Vitamin B12 (Cobalamin) and Folate Panel, Serum (11/02/2024 3:33 PM EDT) Vitamin B12 256 200 - 900 pg/mL [facility] Comment:NORMAL 200-900 PG/ML INDETERMINATE 160-199 PG/ML DEFICIENT < 160 PG/ML Folate 12.4 > or = 4.0 ng/mL [facility] Comment:Reference Values:> o r = 4.0 ng/mL< 4.0 ng/mL suggests folate deficiency Methotrexate, aminopterin and folinic acid(leucovorin) are chemotherapeutic agents whose molecularstructures are similar to folate; therefore, the Architectfolate assay cannot be used for patients using these drugs. 11/02/2024 3:33 PM EDT 11/02/2024 4:10 PM EDT Audrey Holman MD LAB BLOOD ORDERABLES Final Result [facility] [address] [place] [address] [phone] * (ABNORMAL) POCT HGB A1C (09/17/2024 9:50 AM EST) Hemoglobin A1C 7.8(A) 4.0 - 6.0 % QC Media Lot # [id number] Lot# Expiration Date Blood 09/17/2024 9:50 AM EST Result [facility] Audrey Holman MD POINT OF CARE TEST EN TER/EDIT ORDERABLES Final Result * POCT Glucose (09/17/2024 9:49 AM EST) Glucose Blood, POC 198 60 - 200 mg/dL Comment:RBS QC Media Lot # [id number] Lot# Expiration Date Blood Capillary blood specimen / Unknown 09/17/2024 9:49 AM EST Result [facility] Audrey Holman MD POINT OF CARE TEST EN TER/EDIT ORDERABLES Final Result * Testosterone, Total, males (Adult), IA (09/15/2024 7:28 AM EST) Testosterone, Total 935 250 - 1100 ng/dL [facility] Comment:For additional infor gunnar, please refer tohttp://education.[employer].Kickfire/faq/ZvpkvHysifrrujafyYTSVSEIOV019(This link is being provided for informational/educational purposes only.)This test was developed and its analytical performancecharacteristics have been determined by [employer] [place], [place]. It hasnot been cleared or approved by the U.S. Food and DrugAdministration. This assay has been validated pursuantto the CLIA regulations and is used for clinicalpurposes.THIS TEST WAS PERFORMED AT:[facility] [place] [address]ONFYDPU W. MASON,MD,PHD 09/15/2024 7:28 AM EST 09/15/2024 7:28 AM EST us Generic External Data Provider LAB BLOOD ORDERAB LES Final Result Performing Organization Address City/State/[facility] Co de Phone Number [facility] [address] [place] [phone] * Hematoxylin and Eosin Stain (08/30/2024 12:43 PM EST) 08/30/2024 12:4 3 PM EST 08/30/2024 1:14 PM EST Narrative [facility] - 08/31/2024 3:23 PM EST ----- ------- Name: Owen Montano ?Age/Sex: 53/M ? : 1970 Unit#: [id number] ?? Attend Dr: Francesca Leyva MD ?Re08/30/24 ?Status: DEP SDC ? Location: HO.SSS ?Disch: ? ----- ------- SPEC : [id number] ?RECD: 08/30/24-1313 ? STATUS: ??SOUT ? REQ NUM: [id number] ? JUAN FRANCISCO: 08/30/24-1243 ? SUBM DR: [...] microscopic examination, 2 pieces in cassette [facility] Copies To: ?? Audrey Smith MD ?? [employer] ?? [address] ?? [place], [place] ?? [phone] ?? Francesca Leyva MD ?? [facility] ?? [address] ?? [place] ?? [phone] ----- ------- Signed (signature on file) Samantha Olson MD 08/31/24 1523 ? ----- ------- ? END OF REPORT ? us Generic External Data Provider LAB BLOOD ORDERAB LES Final Result [facility] [address] [place] [phone] [phone] * (ABNORMAL) Glucose, Whole Blood (08/30/2024 11:15 AM EST) Glucose, Whole Blood 134(H) 60 - 115 mg/dL [facility] Comment:METER #: [id number] 08/30/2024 11:1 5 AM EST 08/30/2024 11:21 AM EST Generic External Data Provider LAB BLOOD ORDERAB LES Final Result Performing Organization Address [facility]/ZIP Co de Phone Number [facility] [address] [place] [phone] * (ABNORMAL) Lipid Panel, Standard (08/25/2024 7:10 AM EST) Triglycerides 181(H) <150 mg/dL [facility] Comment:Desirable Triglyceri de: less than 150 mg/dLBorderline High Triglyceride 150-199 mg/dLHigh Triglyceride: 200-499 mg/dLVery High Triglyceride: greater than or equal to 5OO mg/dL Cholesterol 142 <200 mg/dL [facility] Comment:Desirable Cholestero l: less than 200 mg/dLBorderline High Cholesterol: 200-239 mg/dLHigh Cholesterol: greater than 239 mg/dL LDL Cholesterol Calculated 68 <100 mg/dL [facility] Comment:Desirable LDL: less than 100 mg/dLNear Optimal/Above Optimal LDL: 110- 129 mg/dLBorderline High LDL: 130-159 mg/dLHigh LDL: 160-189 mg/dLVery High LDL: greater than or equal to 190 mg/dL HDL Cholesterol 38(L) >40 mg/dL [facility] Comment:Desirable HDL: great er than 40 mg/dL Note: This HDL assay may give artificially low results in patients with liver disease. 08/25/2024 7:10 AM EST 08/25/2024 7:10 AM EST us Generic External Data Provider LAB BLOOD ORDERAB LES Final Result Performing Organization Address City/[facility]/ZIP Co de Phone Number [facility] [address] [place] [phone] * Albumin, Random Urine W/Creatinine (06/02/2024 8:55 AM EST) Creatinine, Urine 107.27 mg/dL [facility] Microalbumin Urine <5.0 mg/L H [facility] Microalbum Creatinine Ratio Ur TNP <30 ug/mg cr [facility] Comment:Unable to calculate albumin/creatinine ratio due to lowmicroalbumin or creatinine result. Urine (Urine, Random) 06/02/2024 8:55 AM EST 06/02/2024 10:47 AM EST Audrey Holman MD LAB URINE ORDERABLES Final Result [facility] [address] [place] [phone] [phone] * Hm Colonoscopy (05/22/2021) Historical Provider [...] detection of this assay. ?? The [employer] HIV Ag/Ab Combo assay result and supplemental assay results should be interpreted in conjunction with the patient's clinical presentation, history and other laboratory results. ??If the results are inconsistent with clinical evidence, additional testing is suggested to confirm the result. 10/01/2019 10:2 8 AM EDT us Audrey Holman MD HISTORICAL/NON ORDERA BLE LABS Final Result [facility] [address] [place] [address], from Last 3 Months or Most Recently Relevant to Health Maintenance Insurance [facility] C3 Care Teams Electronic Warfare Specialist Relationship Specialty Start Date End Date Audrey Smith MD [address] [place] [phone] PCP - General Family Medicine 11/20/17
--- OUTSIDE RECORDS SUMMARY | 2024-11-08 09:09 | XMS_ITS | Encounter Summary ---
Author Organization [employer] Address [address] [facility] [address] [place] [address] Care Team Providers Care Roll Coverer Name Role Phone Audrey Smith MD Primary Care Provide r Reason for Visit * Reason Comments Med Refill Encounter Details Date Type Department Care Team ([facility] st Contact Info) Description 11/01/2024 Refill [facility] [address] [place] [address] Audrey Smith MD [address] [place] [address] Diabetic polyneuropathy associated with type 2 diabetes [...] Description 12/10/2024 10:30 AM EDT Medication Management [facility] [address] [place] [phone] 12/15/2024 9:15 AM EDT Office Visit [facility] [address] [place] [phone] Audrey Smith MD [address] [place] [phone] 05/05/2025 9:00 AM EDT Immunization [facility] [address] [place] [phone] documented as of this encounter Visit Diagnoses Diagnosis Diabetic polyneuropathy associated with type 2 diabetes mellitus (CMS/HCC) documented in this encounter Additional Health Concerns Assessment Noted Time PHQ-9 Depression Total Score: 0 05/21/20 9:38 AM EDT documented as of this encounter Care Teams Roll Coverer Relationship Specialty Start Date End Date Audrey Smith MD [address] [place] [phone] PCP - General Family Medicine 11/20/17 documented as of this encounter
--- OUTSIDE RECORDS SUMMARY | 2024-11-08 09:09 | XMS_ITS | Encounter Summary ---
Author Organization [employer] Address [address] [facility] [address]t [place] [address] Care Team Providers Care Aircraft Machinist Name Role Phone Audrey Smith MD Primary Care Provide r Encounter Details Date Type Department Care Team (Late st Contact Info) Description 08/30/2022 Orders Only [facility] [address] [place] [phone] Vane Cervantes MD [address] [place] [address] [phone] Muscle spasm (Primary Dx) Social History Tobacco [...] Description 12/10/2024 10:30 AM EDT Medication Management [facility] [address] [place] [address] [phone] 12/15/2024 9:15 AM EDT Office Visit [facility] [address] [place] [address] [phone] Audrey Smith MD [address] [place] [address] [phone] 05/05/2025 9:00 AM EDT Immunization [facility] [address] [place] [phone] documented as of this encounter Visit Diagnoses Diagnosis Muscle spasm- Primary Spasm of muscle documented in this encounter Care Teams Aircraft Machinist Relationship Specialty Start Date End Date Audrey Smith MD [address] [place] [address] PCP - General Family Medicine 11/20/17 documented as of this encounter
--- OUTSIDE RECORDS SUMMARY | 2024-11-08 09:09 | XMS_ITS | Encounter Summary ---
Author Organization [employer] Address [address] [facility] 7t [place] [address] Care Team Providers Care Cargo Tank Mechanic Name Role Phone Audrey Smith MD Primary Care Provide r Reason for Visit * Reason Comments Med Refill Encounter Details Date Type Department Care Team ([facility] st Contact Info) Description 10/22/2024 Refill [facility] MED[facility]INE [address] [place] [address] Audrey Smith MD [address] [place] [address] Diabetic polyneuropathy associated with type 2 diabetes [...] Description 12/10/2024 10:30 AM EDT Medication Management [facility] MEDICINE [address] [place] [phone] 12/15/2024 9:15 AM EDT Office Visit [facility] [address] [place] [phone] Audrey Smith MD [address] [place] [phone] 05/05/2025 9:00 AM EDT Immunization [facility] [address] [place] [address] [phone] documented as of this encounter Visit Diagnoses Diagnosis Diabetic polyneuropathy associated with type 2 diabetes mellitus (CMS/HCC) documented in this encounter Additional Health Concerns Assessment Noted Time PHQ-9 Depression Total Score: 0 05/21/20 9:38 AM EDT documented as of this encounter Care Teams Cargo Tank Mechanic Relationship Specialty Start Date End Date Audrey Smith MD [address] [place] [phone] PCP - General Family Medicine 11/20/17 documented as of this encounter
[2024-11-08 09:59] LABS: Hematocrit 50.6 % (42.0-52.0); Hemoglobin 16.9 g/dl (14.0-18.0); Mean Corpuscular HGB Conc 33.4 g/dl (31.0-36.0); Mean Corpuscular Hemoglobin 30.2 pg (27.0-33.0); Mean Corpuscular Volume 90.5 fL (80.0-98.0); Mean Platelet Volume 11.4 fL (9.4-12.4); Platelet Count 222 X10*3/uL (160-400); Red Blood Count 5.59 X10*6/uL (4.60-5.80); Red Cell Distribution Width 12.5 % (11.0-16.0); White Blood Count 6.6 X10*3/uL (4.8-10.8)
[2024-11-08 11:00] LABS: Prostate Specific Antigen 0.67 ng/mL (<0.05-4.0)
[2024-11-14 23:38] LABS: Testosterone, Total 457 ng/dL (250-1100)
== END 2024-11-08 08:56 | disposition home or self-care (01) ==
LOC: HO.LAB 08:55
PROVIDERS: PCP Internal Medicine; Visit Provider Urology
DX: E29.1 Testicular hypofunction (principal)
CPT/HCPCS: 36415; 84153; 84403; 85027

== ENCOUNTER 2024-11-15 09:18 | Outpatient (AMB) | payer MEDICAID, SELFPAY ==
--- NOTE | 2024-11-15 09:43 | MHC.OFFVIS ---
Vital Signs 11/15/24 09:44 Height 5 ft 6 in Weight 167 lb 8.821 oz BMI 27.0 BP 104/72 Blood Pressure Location Lt brachial Position Sitting Pulse 66 Pulse Source Pulse Oximeter Pulse Oximetry (%) 98 Oxygen Delivery Method Room Air Intake Visit Reasons: sleep disorder Intake Note: pt is here for follow up SARTHAK and he feel okay and cpap is going well. Computer Network Support Specialist Required: Yes Computer Network Support Specialist Services: Computer Network Support Specialist Present Computer Network Support Specialist Name: [id number] Allergies No Known Allergies [No Known Allergies*] Allergy (Verified 11/15/24 09:54) Medication List - Last Reconciled 11/15/24 by Desi Bach MD alirocumab (Praluent Pen) 75 mg subcut Q2W aspirin (Adult Low Dose Aspirin) 81 mg PO DAILY blood sugar diagnostic (FreeStyle Lite Strips) As directed blood-glucose meter (FreeStyle Hagerman Lite kit) As directed canagliflozin (Invokana) 100 mg PO DAILY cholecalciferol (vitamin D3) 25 mcg PO DAILY clopidogrel 75 mg PO DAILY cyclobenzaprine 5 mg PO TID dicyclomine 20 mg PO QID PRN famotidine 40 mg PO BID fexofenadine (Allergy Relief (fexofenadine)) 180 mg PO DAILY gabapentin 400 mg PO TID glipizide ER 2.5 mg PO DAILY hydrocortisone 2.5% (Procto-Med HC) 1 ea GA BID PRN hydroxyzine HCl 1 tab PO BEDTIME PRN imipramine HCl 10 mg PO BEDTIME lancets (TRUEplus Lancets) As directed levothyroxine 25 mcg PO QAM lidocaine 5% (Lidoderm) 1 patch topical DAILY PRN awaqyt-khnqozsd-tmqrcnp 5,000-17,000- 24,000 unit (Zenpep) 1 cap PO QID loperamide 2 mg PO BID PRN lorazepam 2 mg PO DAILY PRN metformin 1,000 mg PO BID metoprolol succinate ER 50 mg PO DAILY needle (disp) 18 G (BD Regular Bevel [place]) As directed - draw up testosterone needle (disp) 22 G To inject Testosterone nitroglycerin 0.4 mg sublingual Q5M PRN oxybutynin chloride ER 5 mg PO DAILY 90 days promethazine 25 mg PO Q12H PRN risperidone 4 mg PO BEDTIME rosuvastatin 20 mg PO BEDTIME sertraline 100 mg PO DAILY sertraline 50 mg PO DAILY syringe (disposable) (Monoject TB Luer Judy) As directed - use 18 needle to draw up testosterone and 22 to inject tamsulosin 0.4 mg PO BEDTIME 90 days testosterone cypionate 140 mg (0.7 mL) IM Q2W 28 days Do you need a note to return to daycare/school/sports/work: No HPI HPI sleep disorder: Details: This 54 years old Occitan-speaking gentleman is here for 6 months follow-up for his obstructive sleep apnea. He uses CPAP every night except that he misses a few nights every month. With the CPAP he sleeps good and has no complaints related to the mask or CPAP device. He does not have any associated chronic pulmonary issues. The main reason for his obstructive sleep apnea is Cranio-Fascial deformity, and not the weight. Anyway his weight is staying stable. [facility] Medical History Hypogonadism Nocturnal hypoxemia SARTHAK (obstructive sleep apnea) Hypogonadism in male On beta catherine at home Hypothyroid IBS (irritable bowel syndrome) BPH (benign prostatic hyperplasia) Anxiety Allergic rhinitis COLON (nonalcoholic steatohepatitis) Elevated AFP Decreased libido Type 2 diabetes mellitus with unspecified complications Other and unspecified hyperlipidemia Essential hypertension Atherosclerotic cardiovascular disease Hypogonadism in male Surgical History History of esophagogastroduodenoscopy (EGD) Hx of colonoscopy History of cardiac cath History of cardiac cath Family History Father Cardiac disease Mother Cardiac disease Social History Are you a primary certified social workers in health care to a significant other at home: No Do you presently have visiting nurse or other home services: No Alcohol intake: former Patient Tobacco Use Status: Former Tobacco user Tobacco use type: Cigarette Review of Systems Const All systems reviewed & are unremarkable except as noted in HPI and below Reports snoring (moderate ) Eyes Reports no additional complaints ENT Reports no additional complaints Card Denies chest pain (Intermittent angina), Denies irregular heart rhythm and Denies leg edema Resp Denies cough, Reports snoring (moderate ) and Denies wheezing GI Reports heartburn (GERD symptoms) Reports no additional complaints Musc Reports no additional complaints Skin/Breast Reports system reviewed and no additional complaints, except as documented Neuro Reports no additional complaints Psych Reports depression and Reports mood swings Endo Reports no additional complaints Kenneth/Lymph Reports no additional complaints Aller/Immun Reports no additional complaints and Denies wheezing Physical Exam Vital Signs: Last Vital Signs Pulse 66 11/15/24 09:44 BP 104/72 11/15/24 09:44 Pulse Ox 98 11/15/24 09:44 Oxygen Delivery Method Room Air 11/15/24 09:44 BMI result Body Mass Index 27.0 Const General: healthy appearing, comfortable, no acute distress, alert and awake Orientation/consciousness: patient oriented x3 HEENT Other: FACIAL FEATURES ARE, QUITE DISTINCT. HE HAS RELATIVELY FLAT NOSE AND FACE, WITH REGRESSION OF THE LOWER JAW , CAUSING RETROGNATHIA . Head: Yes normal to inspection General nose exam: No nasal polyps present and No nasal discharge present Face and sinus: Yes sinuses nontender Mouth: oropharynx abnormals (NARROW, WITH MALLAMPATI CLASS 3) Teeth and gingiva: other (RETROGANTHIA OF THE LOWER JAW) Throat: Yes posterior oropharynx normal Eyes General: appearance normal, both eyes and all related structures Neck Neck: Yes normal visual inspection, Yes no lymphadenopathy, Yes trachea midline and Yes no JVD Thyroid: Thyroid normal Chest Chest palpation & inspection: normal inspection of the chest, normal palpation of entire chest wall and no tenderness Resp Effort & Inspection: normal respiratory effort Auscultation: clear to auscultation bilaterally, no crackles and no wheezes Cardio Palpation: normal PMI Rate: regular rate Rhythm: regular rhythm Heart sounds: no gallops and no murmurs Peripheral pulses: Peripheral pulses 2+ throughout GI Palpation (GI): Soft to palpation, nontender, No hepatosplenomegaly present and no masses Auscultation: normal bowel sounds Back/Spine/Pelvis Thoracic/Lumbar Spine: thoracic and lumbar spine normal to inspection Skin General skin exam: no rashes or lesions noted Neuro General: patient oriented x3 and no focal motor deficits Cranial nerves: Yes CN's II-XII intact bilaterally Extrem General: Yes normal to inspection, Yes no clubbing, cyanosis or edema and Yes no calf tenderness Psych Appearance: grossly normal and well kempt Speech and movement: Normal speech and movement present Results Reviewed Results Reviewed: THE COMPLIANCE REPORT FOR THE LAST 30 NIGHTS IS REVIEWED AND HE HAS USED 25/30 NIGHTS, 83% AVERAGE USE IT PER NIGHT 5 HOURS 15 MINUTES THE PRESSURE USED MOSTLY 12-14 CM NO SIGNIFICANT AIR LEAK RESIDUAL AHI 3.2 Assessment & Plan Assessment & Plan (1) SARTHAK (obstructive sleep apnea): Comment: THIS GENTLEMAN IS OF NORMAL WEIGHT. 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 IT IS A PERMANENT MALFORMATION AND , ANY ATTEMPT AT FURTHER WEIGHT LOSS WOULD NOT HELP IN REDUCING HIS SLEEP APNEA. He has used the CPAP regularly and is compliant, (83 % OF THE NIGHTS ) HE CLAIMS THAT SLEEP QUALITY HAS DEFINITELY IMPROVED, HE HAS NO ISSUES RELATED TO THE MASK OR CPAP DEVICE. Code(s): G47.33 - Obstructive sleep apnea (adult) (pediatric) Category: Medical Plan: COMMENDED FOR GOOD COMPLIANCE AND ADVISED TO KEEP ON USING CPAP REGULARLY EVERY NIGHT . Coding Level of Care Code Est Pt Level 3 (40910) Diagnoses SARTHAK (obstructive sleep apnea) G47.33
[2024-11-15 09:44] VITALS: BP 104/72; PULSE 66; O2SAT 98; BMI 27.0
--- OUTSIDE RECORDS SUMMARY | 2024-11-15 10:13 | XMS_ITS | Encounter Summary ---
Author Organization [email or web address] [facility] Address [address] [place] [address] 7t [place] [address] Care Team Providers Care Foam Fabricator Name Role Phone Audrey Smith MD Primary Care Provide r Encounter Details Date Type Department Care Team (Late Contact Info) Description 03/27/2023 Orders Only [facility] MEDICINE [address] [place] [phone] Provider, MD Natasha Social History Tobacco Use [...] Description 12/10/2024 10:30 AM EDT Medication Management [address] [address] 12/15/2024 9:15 AM EDT Office Visit [address] [address] Audrey Smith MD [address] [place] [phone] 05/05/2025 9:00 AM EDT Immunization [address] [address] documented as of this encounter Procedures Procedure [...] EDT Narrative 03/30/2023 11:21 AM EDT ? [facility] ?[address] ?[place] [address] ?XRay Report ? Signed ? Patient: Owen Montano ?MR#: ?? [id number] ? : 1970 ?Acct:[id number] ? Age/Sex: 52 / M ?ADM Date: 03/30/23 ? Loc: HO.ED ? Attending Dr: ? Ordering Physician: Ada Mcintosh NP ?? Date of Service: 03/30/23 ?? Procedure(s): XR hip RT w PEL1V ?? Accession Number(s): [id number] ? cc: Audrey Smith MD; Ada Mcintosh [...] 1117 ? DD/ 1046 ? TD/TT: ? Retail Salesperson: ? Procedure Note Jamshid, Leigh - 03/30/2023 [facility] [address] [place] [address] XRay Report Signed Patient: Owen MontanoMR#: [id number] : 1970Acct:[id number] Age/Sex: 52 / MADM Date: 03/30/23 Loc: HO.ED Attending Dr: Ordering Physician: Ada Mcintosh NP Date of Service: 03/30/23 Procedure(s): XR hip RT w PEL1V Accession Number(s): [id number] cc: Audrey Smith MD; Ada Mcintosh NP [...] in OV> 03/30/23 1117 DD/ 1046 TD/TT: Retail Salesperson: [facility] External Provider IMG XR PROCEDURES Final Result * Hm Colonoscopy (05/22/2021) Historical Provider HEALTH MAINTENANCE Final Result documented in this encounter Visit Diagnoses Not on filedocumented in this encounter Care Teams Foam Fabricator Relationship Specialty Start Date End Date Audrey Smith MD [address] [place] [phone] PCP - General Family Medicine 11/20/17 documented as of this encounter
--- OUTSIDE RECORDS SUMMARY | 2024-11-15 10:14 | XMS_ITS | Clinical Summary ---
Author Organization [employer] Address [address] [facility] 7t [place] [address] Care Team Providers Care Safety Specialist Name Role Phone Audrey Smith MD [...] MOUTH EVERYDAY AT NOON 023 Active Zenpep 5000-51959 units capsule delayed-release particles capsule Take 1 [...] complication, without long-term current use of insulin ([facility]) TEST BLOOD SUGAR TWICE DAILY 100 each Active Blood Glucose Monitoring Suppl (FreeStyle Lite) w/Device kitIndications:T ype 2 diabetes mellitus with hyperglycemia, without long-term current use of insulin ([facility]) 1 kit 2 times daily. 1 kit Active FREESTYLE LITE test stripIndications :Type 2 diabetes mellitus with hyperglycemia, without long-term current use of insulin ([facility]) TEST BLOOD SUGAR TWICE DAILY 50 [...] MG EC tabletIndication s:Coronary artery disease involving [place] coronary artery of [place] heart, unspecified whether angina present TAKE 1 TABLET BY MOUTH EVERYDAY AT NOON 90 tablet 1 Active clopidogrel (Plavix) 75 MG tabletIndication s:Coronary artery disease involving [place] coronary artery of [place] heart, unspecified whether angina present TAKE 1 [...] 24 hr tabletIndication s:Coronary artery disease involving [place] coronary artery of [place] heart, unspecified whether angina present TAKE 1 [...] 2 diabetes mellitus without complication, unspecified whether half-way insulin use (CMS/HCC) TAKE 1 TABLET BY [...] every 3 (three) months. Administered at office ([facility]) Active B-D 3CC LUER-CHRISTINE SYR 41WE1-9/2 21G X 1-2 3 ML misc USE [...] tells me she he was out of [facility] because of insurance and just started on [...] of colon 11/20/2017 Hyperuricemia 11/20/2017 CAD in [place] artery 11/20/2017 Benign prostatic hyperplasia with nocturia [...] will continue with same medications, I extensibly branch credit counselor him about diabetic diet and let him know his glucose also will likely go down after back injections wears out - Encounters Date Type Department Care Team Description 11/08/2024 Orders Only GENERIC EXTERNAL DATA DEPARTMENT Provider, Generic External Data 11/03/2024 9:05 AM EDT Nurse Only [facility] [address] [place] [address] Tori [place]ton LPN Encounter for immunization (Primary Dx) 11/03/2024 Travel 11/02/2024 Orders Only [facility] [address] [place] [address] Audrey Smith MD 11/02/2024 Travel 11/01/2024 Refill [facility] [address] [place], [place] [phone] Audrey Smith MD Diabetic polyneuropathy associated with type 2 diabetes mellitus ([facility]) 11/01/2024 Refill [facility] [address] [place], [place] [phone] Audrey Smith MD Diabetic polyneuropathy associated with type 2 diabetes mellitus ([facility]/HCC) 10/26/2024 Telephone [facility] [address] [place] [address] Audrey Smith MD 10/22/2024 Refill [facility] [address] [place] [address] Audrey Smiht MD Diabetic polyneuropathy associated with type 2 diabetes mellitus (CMS/HCC) 10/01/2024 Population Health Risk Score [facility] (C3) Department [address] [place] [address] [phone] Provider, Population Health Generic 09/17/2024 10:00 AM EST Office Visit [facility] [address] [place] [address] Audrey Smith MD Essential hypertension (Primary Dx); Type 2 diabetes mellitus with hyperglycemia, without long-term current use of insulin ([facility]) 09/17/2024 Travel 09/15/2024 Orders Only GENERIC EXTERNAL DATA DEPARTMENT Provider, Generic External Data 09/03/2024 Patient Outreach [facility] [address] [place] [phone] Audrey Smith MD Pre-visit Planning (SDOH screening negative and tobacco screening negative) 08/30/2024 Orders Only GENERIC EXTERNAL DATA DEPARTMENT Provider, Generic External Data 08/26/2024 Orders Only [facility] [address] [place] [phone] Audrey Smith MD Type 2 diabetes mellitus with hyperglycemia, without long-term current use of insulin ([facility]) (Primary Dx) 08/26/2024 Refill [facility] [address] [place], [place] [phone] Audrey Smith MD Diabetic polyneuropathy associated with type 2 diabetes mellitus ([facility]/HCC) 08/25/2024 Orders Only GENERIC EXTERNAL DATA [...] Description 12/10/2024 10:30 AM EDT Medication Management [facility] [address] [place] [phone] 12/15/2024 9:15 AM EDT Office Visit [facility] [address] [place] [phone] Audrey Smith MD [address] [place] [phone] 05/05/2025 9:00 AM EDT Immunization [facility] [address] [place] [address] [phone] Health Maintenance Due Date Last Done Comments [...] Procedure Name Priority Date/Time Associated Diagnosis Comments TESTOSTERONE, TOTAL, MALES (ADULT), IA Routine 11/08/2024 9:04 AM EDT PSA, TOTAL Routine 11/08/2024 9:04 AM EDT CBC Routine 11/08/2024 9:04 AM EDT VITAMIN B12/FOLATE, SERUM PANEL Routine 11/02/2024 3:33 PM EDT POCT GLYCATED HEMOGLOBIN, TOTAL Routine 09/17/2024 9:50 AM EST Type 2 diabetes mellitus with hyperglycemia, without long-term current use of insulin ([facility]) POCT GLUCOSE Routine 09/17/2024 9:49 AM EST Type 2 diabetes mellitus with hyperglycemia, without long-term current use of insulin (CMS/[facility]) TESTOSTERONE, TOTAL, MALES (ADULT), IA Routine 09/15/2024 7:28 AM EST HEMATOXYLIN AND EOSIN STAIN Routine 08/30/2024 12:43 PM EST GLUCOSE, WHOLE BLOOD Routine 08/30/2024 11:15 AM EST LIPID PANEL, STANDARD Routine 08/25/2024 7:10 AM EST ALBUMIN, RANDOM URINE W/CREATININE Routine 06/02/2024 8:55 AM EST Type 2 diabetes mellitus with hyperglycemia, without long-term current use of insulin (CMS/[facility]) HM COLONOSCOPY Routine 05/22/2021 ZZZ HISTORICAL HIV AB/AG Routine 10/01/2019 10:28 AM EDT from Last 3 Months or Most Recently Relevant to Health Maintenance Results * CBC (11/08/2024 9:04 AM EDT) White Blood Count 6.6 4.8 - 10.8 X10*3/uL [facility] Red Blood Count 5.59 4.60 - 5.80 X10*6/uL [facility] Hemoglobin 16.9 14.0 - 18.0 g/dl [facility] Hematocrit 50.6 42.0 - 52.0 % [facility] Mean Corpuscular Volume 90.5 80.0 - 98.0 fL [facility] Mean Corpuscular Hemoglobin 30.2 27.0 - 33.0 pg [facility] Mean Corpuscular HGB Conc 33.4 31.0 - 36.0 g/dl [facility] Red Cell Distribution Width 12.5 11.0 - 16.0 % [facility] Platelet Count 222 160 - 400 X10*3/uL [facility] Mean Platelet Volume 11.4 9.4 - 12.4 fL [facility] NRBC Pct Auto 0.0 0.0 - 0.2 /100WBC [facility] NRBC Abs Auto 0.000 0.0 - 0.012 X10*3/uL [facility] 11/08/2024 9:04 AM EDT 11/08/2024 9:04 AM EDT us Generic External Data Provider LAB BLOOD ORDERAB LES Final Result [facility] [address] [place] [phone] * Testosterone, Total, males (Adult), IA (11/08/2024 9:04 AM EDT) Only the most recent of2 resultswithin the time period is included. Testosterone, Total 457 250 - 1100 ng/dL [facility] Comment:For additional infor gunnar, please refer tohttp://education.[employer]/faq/Qg[email or web address](This link is being provided for informational/educational purposes only.)This test was developed and its analytical performancecharacteristics have been determined by [employer] [place], [place]. It hasnot been cleared or approved by the U.S. Food and DrugAdministration. This assay has been validated pursuantto the CLIA regulations and is used for clinicalpurposes.THIS TEST WAS PERFORMED AT:[employer] [place] [address]HZPQNYI W. MASON,MD,PHD 11/08/2024 9:04 AM EDT 11/08/2024 9:04 AM EDT Generic External Data Provider LAB BLOOD ORDERAB LES Final Result Performing Organization Address [facility]/ZIP Co de Phone Number [facility] [address] [place] [phone] * PSA,Total (11/08/2024 9:04 AM EDT) Prostate Specific Antigen 0.67 <0.05 - 4.0 ng/mL [facility] Comment:PSA methodology: Abb nelsy Alimaria c i ChemiluminescentMicroparticle Immunoassay (CMIA) 11/08/2024 9:04 AM EDT 11/08/2024 9:04 AM EDT Generic External Data Provider LAB BLOOD ORDERAB LES Final Result Performing Organization Address City/[facility]/ZIP Co de Phone Number [facility] [address] [place] [phone] * Vitamin B12 (Cobalamin) and Folate Panel, Serum (11/02/2024 3:33 PM EDT) Vitamin B12 256 200 - 900 pg/mL [facility] Comment:NORMAL 200-900 PG/ML INDETERMINATE 160-199 PG/ML DEFICIENT < 160 PG/ML Folate 12.4 > or = 4.0 ng/mL [facility] Comment:Reference Values:> o r = 4.0 ng/mL< 4.0 ng/mL suggests folate deficiency Methotrexate, aminopterin and folinic acid(leucovorin) are chemotherapeutic agents whose molecularstructures are similar to folate; therefore, the Architectfolate assay cannot be used for patients using these drugs. 11/02/2024 3:33 PM EDT 11/02/2024 4:10 PM EDT Audrey Holman MD LAB BLOOD ORDERABLES Final Result [facility] [address] [place] [address] [phone] * (ABNORMAL) POCT HGB A1C (09/17/2024 [...] specimen / Unknown 09/17/2024 9:49 AM EST Audrey Holman MD POINT OF CARE TEST EN TER/EDIT ORDERABLES Final Result * Hematoxylin and Eosin Stain (08/30/2024 12:43 PM EST) 08/30/2024 12:4 3 PM EST 08/30/2024 1:14 PM EST Narrative [facility] - 08/31/2024 3:23 PM EST ----- ------- Name: Owen Montano ?Age/Sex: 53/M ? : 1970 Unit#: [id number] ?? Attend Dr: Francesca Leyva MD ?Re08/30/24 ?Status: DEP SDC ? Location: HO.SSS ?Disch: ? ----- ------- SPEC : [id number] ?RECD: 08/30/24-1313 ? STATUS: ??SOUT ? REQ NUM: [id number] ? JUANF RANCISCO: 08/30/24-3 ? SUBM DR: Francesca Leyva MD ? ENTERED: ??08/30/24-8 ?SP TYPE: Surgical ? OTHR DR: Audrey [...] microscopic examination, 2 pieces in cassette A. [facility] Copies To: ?? Audrey Smith MD ?? [facility] ?? [address] ?? [place] [address] ?? [phone] ?? Frnacesca Leyva MD ?? [facility] ?? [address] ?? [place] [address] ?? [phone] ----- ------- Signed (signature on file) Samantha Olson MD 08/31/24 1523 ? ----- ------- ? END OF REPORT ? Generic External Data Provider LAB BLOOD ORDERAB LES Final Result Performing Organization Address [facility] de Phone Number [facility] [address] [place] [phone] * (ABNORMAL) Glucose, Whole Blood (08/30/2024 11:15 AM EST) Glucose, Whole Blood 134(H) 60 - 115 mg/dL [facility] Comment:METER #: [id number] 08/30/2024 11:1 5 AM EST 08/30/2024 11:21 AM EST Generic External Data Provider LAB BLOOD ORDERAB LES Final Result Performing Organization Address [facility] Co de Phone Number [facility] [address] [place] [phone] * (ABNORMAL) Lipid Panel, Standard (08/25/2024 7:10 AM EST) Triglycerides 181(H) <150 mg/dL [facility] Comment:Desirable Triglyceri de: less than 150 mg/dLBorderline High Triglyceride 150-199 mg/dLHigh Triglyceride: 200-499 mg/dLVery High Triglyceride: greater than or equal to 5OO mg/dL Cholesterol 142 <200 mg/dL [facility] Comment:Desirable Cholestero l: less than 200 mg/dLBorderline High Cholesterol: 200-239 mg/dLHigh Cholesterol: greater than 239 mg/dL LDL Cholesterol Calculated 68 <100 mg/dL [facility] Comment:Desirable LDL: less than 100 mg/dLNear Optimal/Above Optimal LDL: 110- 129 mg/dLBorderline High LDL: 130-159 mg/dLHigh LDL: 160-189 mg/dLVery High LDL: greater than or equal to 190 mg/dL HDL Cholesterol 38(L) >40 mg/dL [facility] Comment:Desirable HDL: great er than 40 mg/dL Note: This HDL assay may give artificially low results in patients with liver disease. 08/25/2024 7:10 AM EST 08/25/2024 7:10 AM EST us Generic External Data Provider LAB BLOOD ORDERAB LES Final Result Performing Organization Address [facility]/ZIP Co de Phone Number [facility] [address] [place] [address] [phone] * Albumin, Random Urine W/Creatinine (06/02/2024 8:55 AM EST) Creatinine, Urine 107.27 mg/dL [facility] Microalbumin Urine <5.0 mg/L [facility] Microalbum Creatinine Ratio Ur TNP <30 ug/mg cr [facility] Comment:Unable to calculate albumin/creatinine ratio due to lowmicroalbumin or creatinine result. Urine (Urine, Random) 06/02/2024 8:55 AM EST 06/02/2024 10:47 AM EST us Audrey Holman MD LAB URINE ORDERABLES Final Result Performing Organization Address City/[facility]/ZIP Co de Phone Number [facility] [address] [place] [phone] * Hm Colonoscopy (05/22/2021) us Historical Provider HEALTH MAINTENANCE Final Result * [...] detection of this assay. ?? The [employer] Comp[employer] Mechanic HIV Ag/Ab Combo assay result and supplemental assay results should be interpreted in conjunction with the patient's clinical presentation, history and other laboratory results. ??If the results are inconsistent with clinical evidence, additional testing is suggested to confirm the result. 10/01/2019 10:2 8 AM EDT us Audrey Holman MD HISTORICAL/NON ORDERA BLE LABS Final Result [facility] [address] from Last 3 Months or Most Recently Relevant to Health Maintenance Insurance [email or web address] C[employer] Care Teams Safety Specialist Relationship Specialty Start Date End Date Audrey Smith MD [address] [place] [address] PCP - General Family Medicine 11/20/17
--- OUTSIDE RECORDS SUMMARY | 2024-11-15 10:14 | XMS_ITS | Encounter Summary ---
Author Organization [employer] Address [address] [facility] 7t [place] [address] Care Team Providers Care Regulator Pin Inserter Name Role Phone Audrey Smith MD Primary Care Provide r Reason for Visit * Reason Comments Med Refill Encounter Details Date Type Department Care Team (Late st Contact Info) Description 01/10/2023 Refill [facility] [address] [place] [address] [phone] Name, MD Sameer [address] [place] [address] [phone] Social History Tobacco Use Types Packs/Day Years [...] Description 12/10/2024 10:30 AM EDT Medication Management [facility] [address] [place] [address] [phone] 12/15/2024 9:15 AM EDT Office Visit [facility] [address] [place] [address] [phone] Audrey Smith MD [address] [place] [address] 05/05/2025 9:00 AM EDT Immunization [facility] [address] [place] [address] documented as of this encounter Visit Diagnoses Not on filedocumented in this encounter Care Teams Regulator Pin Inserter Relationship Specialty Start Date End Date Audrey Smith MD [address] [place] [address] PCP - General Family Medicine 11/20/17 documented as of this encounter
--- OUTSIDE RECORDS SUMMARY | 2024-11-15 10:14 | XMS_ITS | Clinical Summary ---
Author Organization 175 [facility] Address [address] [place] [address] Phone Care Team Providers Care Structural Analysis Engineer Name Role Phone Audrey Smith MD [...] not requiring any pain medication. Sarbjit from [facility] is here as well to go over [...] pain med refills today. We used [employer] distance learning technician Leeanna #[phone], Morgan #[id number]. Chronic pain syndrome 09/21/2024 Diabetic neuropathy, painful ([facility] V24, CMS/H CC V28) 09/14/2024 Assessment & Plan (09/14/2024 4:44 PM EST): I reviewed the steps involved in placement of the spinal cord stimulator leads and generator with the patient in conjunction with Sarbjit the route service representative from [facility] and a conference planner. I demonstrated the position of each incision [...] hyperglycemia, without long-term current use of insulin ([facility] V24, [facility] V28) 12/04/2022 Stented coronary artery 11/20/2017 Essential hypertension 11/20/2017 Anxiety 11/20/2017 Acquired hypothyroidism 11/20/2017 Encounters Date Type Department Care Team Description 11/01/2024 9:15 AM EDT Office Visit Orthopedic Surgery [facility] 250 175 [facility] [address] [place] [phone] Aaron Graves, DPM Diabetic mononeuropathy simplex ([facility] V24, [facility] V28) (Primary Dx); Primary osteoarthritis of both feet 10/19/2024 10:25 AM EDT - 10/19/2024 11:59 PM EDT Hospital Encounter [facility] Xray [address] [place] [phone] S/P insertion of spinal cord stimulator Discharge Disposition: Home or Self Care 10/15/2024 2:15 PM EDT Office Visit Neurosurgery [facility] [address] [address] Adali Hogue PA S/P insertion of spinal cord stimulator (Primary Dx) 10/04/2024 10:35 AM EDT Anesthesia Event [facility] Main OR [address] [place] [address] Erwin Pelletier MD Claudio, Raymund, JOCE 10/04/2024 10:30 AM EDT - 10/04/2024 12:00 PM EDT Surgery [facility] Main OR [address] [place] [address] Cara Davenport MD placement of spinal cord stim(left) including leads on to be done with Dr. Parsons [42530 (CPT??) +1 more] 10/04/2024 8:28 AM EDT - 10/04/2024 3:49 PM EDT Hospital Encounter [facility] Main OR [address] [place] [phone] Cara Davenport MD Discharge Disposition: Home or Self Care 10/04/2024 7:05 AM EDT - 10/04/2024 11:59 PM EDT Hospital Encounter [facility] Xray [address] [place] [address] Pain Discharge Disposition: Home or Self Care 09/14/2024 3:15 PM EST Office Visit Neurosurgery [facility] [address] [address] Cara Davenport MD Diabetic neuropathy, painful (CMS/HCC V24, CMS/HCC V28) (Primary Dx) 08/24/2024 9:47 AM EST Anesthesia Event [facility] Pain Management [address] [place] [address] Jonatan Alvarado DO 08/24/2024 7:08 AM EST - 08/24/2024 11:59 PM EST Hospital Encounter [facility] [address] [place] [address] Rock Parsons MD Walsh, Michael, DO Weiss, Ashley, CRNA Type 2 diabetes mellitus with diabetic polyneuropathy, unspecified whether halfway insulin use (CMS/[facility]) [E11.42] (Primary Dx); Type 2 diabetes mellitus with diabetic polyneuropathy (CMS/[facility] V24, CMS/HCC V28); Peripheral polyneuropathy [G62.9] Discharge Disposition: Home or Self Care 08/24/2024 6:05 AM EST - 08/24/2024 11:59 PM EST Hospital Encounter [facility] Xray [address] [place] [address] Pain Discharge Disposition: Home or Self Care from Last 3 Months Immunizations Name Administration Dates Next Due COVID-19 (Moderna/Spikevax) 12yo and older 07/10/2022 Hepatitis B (Yeptzem-V-Djzmc , Recombivax HB-Adult) 19yo and older 12/07/2020,01/25/2019,12/25/2018 Influenza Quadrivalent, 0.5m l, preservative free (Fluarix; FluLaval; Fluzone) ages 6mo and older (Afluria) 3yo and older 05/16/2023,04/18/2022,04/13/2021,2019 Influenza Quadrivalent, with preservative (Fluzone; Afluria) 6mo and older 05/24/2019,04/07/2018 Influenza trivalent, 0.5mL, preservative free (Fluarix; FluLaval; Fluzone) ages 6mo and older (Afluria) 3 years and older 05/21/2024 Gamerius (ages 12 & older) ADDY S-CoV-2 COVID-19, [...] IMPLANT 10/04/2024 Dr. Dav[address]port and Dr. Parsons, [facility] Medical History Medical History Date Comments Diabetes mellitus ([facility] V24, [facility] V28) Hypertension Disease of thyroid gland Hypercholesteremia [...] AM EDT Office Visit Orthopedic Surgery - [place] [address] [phone] Aaron Graves, NEFTALI [address] [address] Health Maintenance Due Date Last Done Comments [...] this topic Medical Devices Implanted Type Area Phys Asst Device Identifier Shelf Expiration Date Model / Serial / Lot Lead Linear Trial St - [id number] - [id number] Implanted:Qty : 1 on 08/24/2024 by Rock Parsons MD at [facility] Neurostim Right: Back [employer] 03/23/2026 [id number] / [id number] / [id number] Lead Linear Trial St - [id number] - [id number] Implanted:Qty : 1 on 08/24/2024 by Rock Parsons MD at [facility] Neurostim Left: Back [employer] 03/15/2026 [id number] / [id number] / [id number] Generator Implant Pulse Ww Alpha - [id number] - [id number] Implanted:Qty : 1 on 10/04/2024 by Cara Davenport MD at [facility] Neurostim Left: Back [employer] [id number] 06/22/2026 [id number] / [id number] / [id number] Powder Surgifoam Absorb Gel - Sna - [id number] Implanted:Qty : 1 on 10/04/2024 by Cara Davenport MD at [facility] [employer] Left: Back [employer] [id number] 06/28/2026 1978 / [id number] / [id number] Linearv Contact Lead Set Implanted:Qty : 1 on 10/04/2024 by Cara Davenport MD at [facility] Left: Back [employer] 08/13/2026 [id number] / [id number] / [id number] Linear Contact Lead Kit Implanted:Qty : 1 on 10/04/2024 by Cara Davenport MD at [facility] Left: Back [employer] 08/13/2026 [id number] / [id number] / [id number] Procedures Procedure Name Priority Date/Time Associated Diagnosis Comments XR LUMBAR SPINE 2-3 VIEWS Routine 10/19/2024 11:21 AM EDT S/P insertion of spinal cord stimulator POCT GLUCOSE BLOOD Routine 10/04/2024 1: 33 PM EDT XR LUMBAR SPINE 2-3 VIEWS Routine 10/04/2024 12:21 PM EDT Pain TH AN ENDOTRACHEAL(NO CHARGE) Routine 10/04/2024 11:20 AM EDT MN INS/REPL SPN NSTIM PG/REC REQ PCKT CREATION BTW ELTRD ARRAY & PG/REC 10/04/2024 10:40 AM EDT Chronic pain syndrome Case Notes [employer] spinal cord stim MN IMPLANTATION NEUROSTIMULATOR ELECTRODE ARRAY EPIDURAL PERCUTANEOUS 10/04/2024 10:40 AM EDT Chronic pain syndrome Case Notes [employer] spinal cord stim POCT GLUCOSE BLOOD [...] Signed Date: 10/19/2024 13:39 ET Workstation ID: [id number] Transcribed By: Self Edit Transcribed Date: 10/19/2024 [...] leads appear to be terminating at the I21phdbf. The leads appear intact. I cannot confirm integrity of the L5 pars interarticulares. Bilateral H7gzpbirciudmpk may be present. IMPRESSION: There are 2 leads projecting in the lower spinal canal. They terminateposterior to the T12 and L1 levels. On 10/04/24 both appear to terminate atthe T12 level. -------- FINAL REPORT -------- Dictated By: Horace Morales Dictated Date: 10/19/2024 13:35 ET Assigned Physician: Horace Morales Reviewed and Electronically Signed By: Horace Morales Signed Date: 10/19/2024 13:39 ET Workstation ID: [id number] Transcribed By: Self Edit Transcribed Date: 10/19/2024 13:35 ET us Adali ETIENNE IMG XR PROCEDURES Final Re sult * (ABNORMAL) POCT Glucose, blood (10/04/2024 1:33 PM EDT) Only the most recent of3 resultswithin the time period is included. Glucose POCT 213(H) 70 - 100 mg/dL 10/04/2024 1:34 PM EDT [facility] Blood Capillary blood specimen / Unknown 10/04/2024 1:33 PM EDT 10/04/2024 1:35 PM EDT us Cara Davenport MD LAB POINT OF CARE TE ST DOCKED DEVICE UNSOLICITED RESULTS Final Result [facility] ([facility]) [facility] [address] [place] [address], [place] [phone] * TH AN ENDOTRACHEAL(NO CHARGE) (10/04/2024 11:20 [...] Signed Date: 08/24/2024 13:23 ET Workstation ID: [id number] Transcribed By: Self Edit Transcribed Date: 08/24/2024 [...] Signed Date: 08/24/2024 13:23 ET Workstation ID: [id number] Transcribed By: Self Edit Transcribed Date: 08/24/2024 13:23 ET us Rock Parsons MD IMG FLUOROSCOPY PROCEDURES Fin al Result from Last 3 Months Insurance , [address] [place] [address] MEDICAID - [place] , [address] [place] [address] Advance Directives * Full Code - Default [...] currently active code status orders. Care Teams Structural Analysis Engineer Relationship Specialty Start Date End Date Audrey Smith MD [address] [phone] PCP - General 07/01/23
--- OUTSIDE RECORDS SUMMARY | 2024-11-15 10:14 | XMS_ITS | Encounter Summary ---
Author Organization [employer] [facility] Address [address] [facility] 7t [place] [address] Care Team Providers Care Correctional Supervisor Lieutenant Name Role Phone Audrey Smith MD Primary Care Provide r Encounter Details Date Type Department Care Team (Late st Contact Info) Description 08/30/2022 Orders Only [facility] [address] [place] [phone] Vane Cervantes MD [address] [place] [address] [phone] Muscle spasm (Primary Dx) Social History Tobacco [...] Description 12/10/2024 10:30 AM EDT Medication Management [facility] [address] [place] [phone] 12/15/2024 9:15 AM EDT Office Visit [facility] [address] [place] [phone] Audrey Smith MD [address] [place] [place] [address] [phone] 05/05/2025 9:00 AM EDT Immunization [facility] [address] [place] [phone] documented as of this encounter Visit Diagnoses Diagnosis Muscle spasm- Primary Spasm of muscle documented in this encounter Care Teams Correctional Supervisor Lieutenant Relationship Specialty Start Date End Date Audrey Smith MD 230 [place] [address] PCP - General Family Medicine 11/20/17 documented as of this encounter
--- OUTSIDE RECORDS SUMMARY | 2024-11-15 10:14 | XMS_ITS | Encounter Summary ---
Author Organization [employer] Address [address] [facility] 7t [place] [address] Care Team Providers Care Video Game Producer Name Role Phone Audrey Smith MD Primary Care Provide r Reason for Visit * Reason Comments Med Refill Encounter Details Date Type Department Care Team ([facility] Contact Info) Description 03/09/2023 Refill [facility] MED & PEDS [address] [place], [place] [phone] Alice Huber MD 230 [place], [place] [phone] Type 2 diabetes mellitus without complication, unspecified whether assistant terminal manager insulin use ([facility]) Social History Tobacco Use Types Packs/Day Years [...] Upcoming Encounters Date Type Department Care Team ([facility] Contact Info) Description 12/10/2024 10:30 AM EDT Medication Management [facility] MEDICINE [address] [place] [phone] 12/15/2024 9:15 AM EDT Office Visit [facility] MEDICINE [address] [place] [address] [phone] Audrey Smith MD 230 [place], [place] [phone] 05/05/2025 9:00 AM EDT Immunization [facility] MEDICINE [address] [place] [address] documented as of this encounter Visit Diagnoses Diagnosis Type 2 diabetes mellitus without complication, unspecified whether assistant terminal manager insulin use ([facility]) documented in this encounter Care Teams Video Game Producer Relationship Specialty Start Date End Date Audrey Smith MD 230 [place] [address] PCP - General Family Medicine 11/20/17 documented as of this encounter
--- OUTSIDE RECORDS SUMMARY | 2024-11-15 10:14 | XMS_ITS | Data Portability ---
Author Organization [facility] [employer] [facility], [id number] Address 34 [facility] [address] [place] [address] Care Team Providers Care Radio Equipment Repairer Name Role Phone ADRI REDDY Referring Provider MAINE MORELAND Apparel Sales Associate FREDY MORENO Psychiatrist Assessment No assessment recorded. [...] proce charleses No observ ation record ed. [email or web address] [address], [address], 08/25/2024 09:45:35 08/24/1908/24/2024 xr fluor o up to 1 hour See Note [facility] , a member of [facility] Name: OWEN TUCKER LINDA LILIA Date of : 1970 Reason for Exam: pain Exam Date: 2024 [id number] EST Report Status : Final Orderi ng [...] Edit Transc ribed Date: 2024 13:[address], [address], 08/25/2024 09:45:35 Result Notes None recorded. Problems Name Problem SNOMED Code Status Onset Date Resolution Date Notes Provider Name and Address Organization Details Recorded Time Diabetic peripheral neuropathy 425939931 Active 025 Rock Balderas MD [facility], [place] - [facility] 11:30:01 Problem Notes None recorded. Procedures Surgical History None recorded. Imaging Results Imaging Date Name Status LastModified by Organiz ation Details LastModified Time 08/24/2024 procedures completed [address], [address], 08/25/2024 09:45:35 08/24/2024 xr fluoro up to [address] completed [address], [address], 08/25/2024 09:45:35 Procedure Notes None recorded. Medical Equipment None Reported. Allergies Allergen ID Allergen Name Allergen Category Reaction Reaction Severity Criticality Documentation Date Start Date Code Code System Note Provider Name and Address Organization Details Recorded Time 20016 No Allergy Informati on Available Not available Not available Not available Not available 08/31/2024 30615 UNK Comme nt: shyanne e: Rere st e: Raymon en; ; Not Available [facility] 5 16:49:03 Medications Name Sig Start Date [...] Available No t Available BD Regular Bevel Gardena 18 gauge x 1 USE WITH testosteron [...] Available Not Available No t Available [employer] [place] Lite kit USE TWICE DAILY active Not [...] Updated DateTime 5 165.1 cm 26.3 kg/m2 42722.5 9 g 63 /min 99 % 99 % 98 [degF] 110 mm[Hg] 72 mm[Hg] Kailyn [facility] 5 11:18:47 Social History None recorded. Functional Status None recorded. Mental Status None recorded. Family History Nothing Reported. Medical History No medical history recorded. Past Encounters Encounter ID Performer Location Encounter Start Date Encounter Closed Date Diagnosis/Indication Diagnosis SNOMED-CT Code Diagnosis ICD10 Code Diagnosis Note [id number] Rock Balderas MD [id number] [facility] [address] [place] [address] 08/31/2024 09:37:10 08/31/2024 12:26:48 Diabetic peripheral neuropathy 249980579 E11.40 -patient with long-stand ing history of [...] tomorrow -his current psychiatri st (Dr. Moreno-- [facility]--[phone] ) -will coordinate with Dr. Davenport for permanent SCS implant; will need to hold plavix prior to this procedure as well (Dr. Gary patel--[facility] ) -20 minutes was used for chart review, interviewi ng/examini ng, and counseling the patient during today's visit, and patient denies having any other further questions/ concerns [id number] Rock Balderas MD [id number] A_[facility] ie [address] [place] [address] 11/02/2024 11:11:23 11/02/2024 13:04:56 Diabetic peripheral neuropathy [id number] E11.40 -patient with long-stand ing history of bilateral foot pain, likely 2/2 diabetes and HTN induced neuropathy -patient did quite well with SCS trial, and underwent SCS implant on 10/04/24; currently reports that pain is significan tly improved -his current psychiatri st (Dr. Moreno-- [facility]--[phone] ) -35 minutes was used for chart [...] Price Member ID Guarantor Name 08/31/2024 1 [place]: [facility] Owen Hurd [id number] Owen Hurd 11/02/2024 1 [place]: [facility] Owen Hurd [id number] Owen Hurd Notes Date Note Type Note [...] Of note, patient is on PLAVIX (sees [facility]).? ? ?he reports that performing activities [...] applied to insertion sites. Rock Balderas MD [facility], [place] - [facility] 11/02/2024 12:21:06 11/02/2024 text/html Owen Hurd is a pleasant 53 y.o. year old male, who has a past medical history of Diabetes mellitus (HCC), Disease of thyroid gland, Hypercholesteremia, Hypertension, and Sleep apnea. CAD s/p stentx3, who presents with moderate bilateral foot/ankle pain for several years. he denies any inciting events. Of note, patient is on PLAVIX (sees [facility]).? ? ?he reports that performing activities [...] SCS implant on 10/04/24. We had the community representative from [employer] also present at today's visit. With additional [...] sites are healing well. Rock Balderas MD [facility], [place] - [facility] 11/02/2024 12:40:27
--- OUTSIDE RECORDS SUMMARY | 2024-11-15 10:14 | XMS_ITS | Encounter Summary ---
Author Organization [employer] Address 75 [facility] 7t [place] [address] Care Team Providers Care Statistician Mathematical Name Role Phone Audrey Smith MD Primary Care Provide r Reason for Visit * Reason Comments Med Refill Encounter Details Date Type Department Care Team ([facility] st Contact Info) Description 11/01/2024 Refill [facility] MEDICINE [address] [place] [address] Audrey Smith MD 230 [place] [address] Diabetic polyneuropathy associated with type 2 diabetes [...] Description 12/10/2024 10:30 AM EDT Medication Management [facility] MED[facility]INE [address] [place] [address] 12/15/2024 9:15 AM EDT Office Visit [facility] [address] [place] [phone] Audrey Smith MD [address] [place] [address] 05/05/2025 9:00 AM EDT Immunization [facility] [address] [place] [phone] documented as of this encounter Visit Diagnoses Diagnosis Diabetic polyneuropathy associated with type 2 diabetes mellitus (CMS/HCC) documented in this encounter Additional Health Concerns Assessment Noted Time PHQ-9 Depression Total Score: 0 05/21/20 9:38 AM EDT documented as of this encounter Care Teams Statistician Mathematical Relationship Specialty Start Date End Date Audrey Smith MD [address] [place] [phone] PCP - General Family Medicine 11/20/17 documented as of this encounter
--- OUTSIDE RECORDS SUMMARY | 2024-11-15 10:14 | XMS_ITS | Encounter Summary ---
Author Organization [employer] Address [address] [facility] 7t [place] [address] Care Team Providers Care Engineering Drafter Name Role Phone Audrey Smith MD Primary Care Provide r Reason for Visit * Reason Comments Med Refill Encounter Details Date Type Department Care Team ([facility] Contact Info) Description 10/22/2024 Refill [facility]INE 230 [place] [address] Audrey Smith MD 230 [place] [address] Diabetic polyneuropathy associated with type 2 diabetes [...] Description 12/10/2024 10:30 AM EDT Medication Management [facility] [address] [place] [address] 12/15/2024 9:15 AM EDT Office Visit [facility]INE [address] [place] [phone] Audrey Smith MD [address] [place] [address] 05/05/2025 9:00 AM EDT Immunization [facility] [address] [place] [phone] documented as of this encounter Visit Diagnoses Diagnosis Diabetic polyneuropathy associated with type 2 diabetes mellitus (CMS/HCC) documented in this encounter Additional Health Concerns Assessment Noted Time PHQ-9 Depression Total Score: 0 05/21/20 9:38 AM EDT documented as of this encounter Care Teams Engineering Drafter Relationship Specialty Start Date End Date Audrey Smith MD [address] [place] [phone] PCP - General Family Medicine 11/20/17 documented as of this encounter
--- OUTSIDE RECORDS SUMMARY | 2024-11-15 10:14 | XMS_ITS | Clinical Summary ---
Author Organization [facility] Address [address] [place] [address] Care Team Providers Care Sales Data Analyst Name Role Phone Unavailable Primary Care Provider [...]
--- OUTSIDE RECORDS SUMMARY | 2024-11-15 10:14 | XMS_ITS | Encounter Summary ---
Author Organization [employer] Address 75 [facility] 7t [place] [address] Care Team Providers Care Sheriff Deputy Name Role Phone Audrey Smith MD Primary Care Provide r Encounter Details Date Type Department Care Team (Late st Contact Info) Description 10/10/2022 Orders Only [facility] MEDICINE [address] [place] [phone] Uzma Tyler LPN Social History Tobacco Use [...] Description 12/10/2024 10:30 AM EDT Medication Management [address] [address] 12/15/2024 9:15 AM EDT Office Visit [facility] MED[facility] [address] [place] [phone] Audrey Smith MD [address] [place] [address] 05/05/2025 9:00 AM EDT Immunization [facility] MED[facility] [address] [place] [phone] documented as of this encounter Visit Diagnoses Not on filedocumented in this encounter Care Teams Sheriff Deputy Relationship Specialty Start Date End Date Audrey Smith MD 230 [place] [address] PCP - General Family Medicine 11/20/17 documented as of this encounter
== END 2024-11-15 09:56 | disposition home or self-care (01) ==
LOC: HO.HPS 09:19
PROVIDERS: PCP Internal Medicine; Visit Provider Internal Medicine
DX: G47.33 Obstructive sleep apnea (adult) (pediatric) (principal)
CPT/HCPCS: 99213

== ENCOUNTER → 2024-11-15 09:18 | Outpatient (BNVA) | payer MEDICAID, SELFPAY | PROVIDERS: PCP Internal Medicine; Visit Provider Internal Medicine | DX: G47.33 Obstructive sleep apnea (adult) (pediatric) (principal); Z99.89 Dependence on other enabling machines and devices | CPT/HCPCS: 99212 ==

== ENCOUNTER 2024-11-19 11:52 | Outpatient (AMB) | payer MEDICAID, SELFPAY ==
--- NOTE | 2024-11-19 12:08 | A.OFFVIS_ITS ---
Vital Signs 11/19/24 12:09 Height 5 ft 6 in Weight 167 lb BMI 27.0 BP 111/73 Blood Pressure Location Lt brachial Position Sitting Pulse 59 Pulse Oximetry (%) 99 Oxygen Delivery Method Room Air Intake Visit Reasons: s/p colonoscopy Intake Note: Patient follow up for Colonoscopy results. Patient cc: abdominal pain on his left side on and off with bloating, and some swallowing problems on and off. [employer] Required: Yes Accompanied by: Self / Same As Patient Allergies No Known Allergies [No Known Allergies*] Allergy (Verified 11/19/24 12:07) HPI HPI s/p colonoscopy: Details: Assessment & Plan (1) Irritable bowel syndrome with diarrhea: Code(s): K58.0 - Irritable bowel syndrome with diarrhea Category: Medical (2) GERD (gastroesophageal reflux disease): Code(s): K21.9 - Gastro-esophageal reflux disease without esophagitis Category: Medical (3) Tubular adenoma of colon: Comment: 2020=ta REPEAT 5 YEARS, 2018 scoped, sessile repeat 1-2 years, 1-2 cm in size with 3-4 smaller polyps Code(s): D12.6 - Benign neoplasm of colon, unspecified Category: Medical Plan Indonesian #Toni Live The colonoscopy had to be rescheduled r/t he ate because he did not receive the written instructions. He continues to do well on his imipramine at 10 mg and if he has occasional breakthrough he then uses the dicyclomine. Again, he was too sleepy had too much dry mouth on the 20 mg imipramine dose. Also continues on his famotidine twice a day, his Zenpep, and his fiber supplement. At this point we will keep his appointment in August after the colonoscopy. 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 Transverse Colon: Normal Descending Colon: Normal Sigmoid Colon: Moderate diverticulosis Rectum: Prominent folds in the rectum (benign on previous biopsies). Ano-rectum: Moderate internal hemorrhoids Impression and Post Procedure Diagnosis: Colonoscopy Findings: No polyps were detected A 15 mm benign appearing nodule in the proximal AC with normal overlying mucosa - (likely submucosal lipoma) - biopsied Moderate diverticulosis seen in the sigmoid colon Prominent folds in the rectum (benign on previous biopsies). Moderate hemorrhoids on retroflexed exam. Plan: I will send a letter with biopsy results. Pt has a FU appointment on 11/19/24 with Mary Kay Avalos NP. Repeat Colonoscopy in 5 years if biopsies are normal (due to a hx of adenomatous colon polyps on past colonoscopy). Above findings were reviewed with the patient and relevant handouts were given and the discharge area. BIOPSIES SHOWED: Colon, ascending nodule, biopsy: Colonic mucosa with a prominent lymphoid aggregate; negative for dysplasia or adipose tissue. BIOPSY Received: 08/30/24 Diagnosis Colon, ascending nodule, biopsy: Colonic mucosa with a prominent lymphoid aggregate; negative for dysplasia or adipose tissue TODAY'S VISIT Indonesian #Jessica Shamar He is agreeable to a 5 year follow up. The procedure was well tolerated. The results were explained and the patient is agreeable to the follow-up interval as stated. The bowel pattern has returned to normal. Education was provided to tell any 1st degree relatives about their findings to be sure that they are screened by age 45. Educated that they will be put on a recall list when it is time for their repeat scope but should they move out of state or away from the hospital they will need to remember along with their primary to repeat the procedure in a timely fashion to avoid any adverse complications. He continues to do well on his imipramine at 10 mg and if he has occasional breakthrough he then uses the dicyclomine. Again, he was too sleepy had too much dry mouth on the 20 mg imipramine dose. Also continues on his famotidine twice a day, his Zenpep, and his fiber supplement. He c/o a globus sensation but no HB or perceived GERD nocturnally. No HB during the day either. He DOES have a constant runny nose and watery eyes - I tried rx'ing Mila and he says he is taking it but this is the time of Spring that allergies are bad. ROV 6-8 weeks [facility] Medical History (Updated 11/19/24 @ 12:17 by JORDAN Corey) COVID-19 Hypogonadism Nocturnal hypoxemia SARTHAK (obstructive sleep apnea) Hypogonadism in male On beta catherine at home Hypothyroid IBS (irritable bowel syndrome) BPH (benign prostatic hyperplasia) Anxiety Allergic rhinitis COLON (nonalcoholic steatohepatitis) Elevated AFP Decreased libido Type 2 diabetes mellitus with unspecified complications Other and unspecified hyperlipidemia Essential hypertension Atherosclerotic cardiovascular disease Hypogonadism in male Surgical History History of esophagogastroduodenoscopy (EGD) Hx of colonoscopy History of cardiac cath History of cardiac cath Family History Father Cardiac disease Mother Cardiac disease Social History Are you a primary caretaker to a significant other at home: No Do you presently have visiting nurse or other home services: No Alcohol intake: former Patient Tobacco Use Status: Former Tobacco user Tobacco use type: Cigarette Review of Systems Const Denies fatigue, Denies fever(s), Denies night sweats, Denies poor appetite and Denies weight loss Eyes Details: glasses Reports requires corrective lenses ENT Reports Normal hearing present, Denies dental pain, Denies dysphagia, Denies hearing loss, Denies mouth pain, Denies odynophagia, Denies throat swelling, Denies tongue swelling and Reports other (Dentition adequate) GI Details: Denies abdominal pain, Denies melena, Denies bloating, Denies hematochezia, Denies constipation, Denies GI cramping, Denies dysphagia, Denies excessive flatus, Denies early satiety, Denies heartburn, Denies diarrhea, Denies nausea, Denies odynophagia, Denies vomiting and Denies hematemesis Skin/Breast Denies pruritus, Denies lesions, Denies rash and Denies jaundice Neuro Reports Normal hearing present and Denies Abnormal speech present Endo Denies fatigue Aller/Immun Denies throat swelling and Denies tongue swelling Physical Exam Vital Signs: Last Vital Signs Pulse 59 11/19/24 12:09 BP 111/73 11/19/24 12:09 Pulse Ox 99 11/19/24 12:09 Oxygen Delivery Method Room Air 11/19/24 12:09 BMI result Body Mass Index 27.0 Const General: cooperative, no acute distress, well developed and well groomed Nutritional Appearance: well nourished, obese and overweight Orientation/consciousness: oriented to person, oriented to place and oriented to time Limitations: No language barrier, ambulation with cane, ambulation with walker and wheelchair HEENT Head: Yes normocephalic and Yes atraumatic Eyes General: appearance normal, both eyes and all related structures Pupils: Equal, round and reactive pupils present Neck Neck: Yes normal visual inspection and Yes no lymphadenopathy Thyroid: Thyroid normal Resp Effort & Inspection: normal respiratory effort and able to speak in complete sentences Auscultation: clear to auscultation bilaterally Cardio Rate: regular rate Rhythm: regular rhythm Heart sounds: Normal, physiologic split S2 sound present Peripheral pulses: radial pulses present and posterior tibial pulses present GI Inspection: No distended and No Abdominal panniculus present Palpation (GI): Soft to palpation, nontender, no guarding, not rigid, No hepatosplenomegaly present and Hepatosplenomegaly present Percussion: Yes normal to percussion Auscultation: normal bowel sounds Rectal Exam - Male: Yes deferred Skin General skin exam: no rashes or lesions noted, turgor normal, skin not dry, no j aundice, No spider nevi and no striae Rashes: no rashes Nails: normal Neuro General: oriented to person, oriented to place and oriented to time Cranial nerves: Yes Equal, round and reactive pupils present and Yes Normal hearing present Speech: No Abnormal speech present Extrem General: Yes normal to inspection, No clubbing, No cyanosis and No edema Psych Thought process: Normal thought process present and not confabulating Thought content: Normal thought content present Insight: Good insight present (Psych) Judgement: Good judgement present (Psych) Assessment & Plan Assessment & Plan (1) GERD (gastroesophageal reflux disease): Code(s): K21.9 - Gastro-esophageal reflux disease without esophagitis Category: Medical (2) Irritable bowel syndrome with diarrhea: Code(s): K58.0 - Irritable bowel syndrome with diarrhea Category: Medical (3) COLON (nonalcoholic steatohepatitis): Comment: 2019: AST/ALT 40/108 with a normal alk-phos, negative autoimmune workup, negative hepatitis a B and C, ferritin is normal at 130, GGT not elevated at 20, hCG tumor marker < 2 Alpha fetoprotein quite elevated at greater than 12 but liver functions are normal the autoimmune workup is normal he is negative for hepatitis B and C and his ultrasound does not show any masses. It is possible that this values being driven out by his injection cholesterol medication or even that has something to do with recently had TURP, MRI 02/2019 neg 07/23/2019?ALPHA-FETOPROTEIN,TUMOR MARKER 12.8??(ng/mL) 03/18/2019 ?ALPHA-FETOPROTEIN,TUMOR MARKER 13.0?AA * CURRENT LABS. 12/03/23 08:09 Plt Count 227 Total Bilirubin 0.7 Direct Bilirubin 0.3 AST 19 ALT 30 Alkaline Phosphatase 81 Ultrasound the abdomen 08/12/22? FINDINGS: PANCREAS: Obscured by bowel gas. LIVER: Normal. The liver is normal in size. The liver contour is normal. Parenchymal echogenicity is normal. No focal hepatic lesion. There is no intrahepatic biliary duct dilatation seen. GALLBLADDER: Normal. The gallbladder is physiologically distended without evidence of stones, sludge, polyps, wall thickening or pericholecystic fluid. COMMON BILE DUCT: Normal in caliber measuring 0.3 cm in diameter. RIGHT KIDNEY: Punctate echogenic foci without twinkle or shadowing may reflect a vascular reflector's. No hydronephrosis. No renal calculi or focal parenchymal lesions. The kidney measures 11.2 cm in maximum dimension. FREE FLUID: None. US/US abdomen limited IMPRESSION: ? Unremarkable sonographic appearance of the liver. ? Pancreas is obscured by bowel gas limiting evaluation. Code(s): K75.81 - Nonalcoholic steatohepatitis (COLON) Category: Medical (4) Type 2 diabetes mellitus with unspecified complications: Code(s): E11.8 - Type 2 diabetes mellitus with unspecified complications Category: Medical Plan Indonesian #Jessica Ibanez He is agreeable to a 5 year follow up. The procedure was well tolerated. The results were explained and the patient is agreeable to the follow-up interval as stated. The bowel pattern has returned to normal. Education was provided to tell any 1st degree relatives about their findings to be sure that they are screened by age 45. Educated that they will be put on a recall list when it is time for their repeat scope but should they move out of state or away from the hospital they will need to remember along with their primary to repeat the procedure in a timely fashion to avoid any adverse complications. He continues to do well on his imipramine at 10 mg and if he has occasional breakthrough he then uses the dicyclomine. Again, he was too sleepy had too much dry mouth on the 20 mg imipramine dose. Also continues on his famotidine twice a day, his Zenpep, and his fiber supplement. He c/o a globus sensation but no HB or perceived GERD nocturnally. No HB during the day either. He DOES have a constant runny nose and watery eyes - I tried rx'ing Mila and he says he is taking it but this is the time of Spring that allergies are bad. This could be from GERD but also could be from his allergies. For now we are going to watch and wait but consider an EGD going forward depending on his future responses. He is agreeable to having additional lab work and an ultrasound to follow-up on his COLON. His weight fluctuates within a few lb and he says his diabetes control has been ?not perfect? but okay. He was educated on the importance of weight control and glucose control along with the avoidance of alcohol. ROV 6-8 weeks Orders: Orders US abdomen complete Today K75.81 - Nonalcoholic steatohepatitis (COLON) Comprehensive Met. Panel Today K75.81 - Nonalcoholic steatohepatitis (COLON) Alpha Fetoprotein Today K75.81 - Nonalcoholic steatohepatitis (COLON) Hemoglobin A1c Today E11.8 - Type 2 diabetes mellitus with unspecified complications, K75.81 - Nonalcoholic steatohepatitis (COLON) Medications: Refilled ptaibq-aesuikfa-dudybgf 5,000-17,000- 24,000 unit (Zenpep) 1 cap PO QID 120 caps 6RF K58.0 - Irritable bowel syndrome with diarrhea famotidine 40 mg PO BID 60 tabs 6RF imipramine HCl 10 mg PO BEDTIME 30 tabs 6RF K58.0 - Irritable bowel syndrome with diarrhea hydrocortisone 2.5% (Procto-Med HC) 1 ea SD BID PRN 28 grams 6RF for pain K64.9 - Unspecified hemorrhoids fexofenadine (Allergy Relief (fexofenadine)) 180 mg PO DAILY 30 ea 6RF Coding Level of Care Code Est Pt Level 4 (60692) Diagnoses GERD (gastroesophageal reflux disease) K21.9 Irritable bowel syndrome with diarrhea K58.0 COLON (nonalcoholic steatohepatitis) K75.81 Type 2 diabetes mellitus with unspecified complications E11.8 Time Spent (min) 34
[2024-11-19 12:09] VITALS: BP 111/73; PULSE 59; O2SAT 99; BMI 27.0
--- OUTSIDE RECORDS SUMMARY | 2024-11-19 12:44 | XMS_ITS | Encounter Summary ---
Author Organization [employer] [facility] Address [address] [place] [address] [address] [place] [address] Care Team Providers Care Athlete Marketing Agent Name Role Phone Audrey Smith MD Primary Care Provide r Encounter Details Date Type Department Care Team (Late Contact Info) Description 03/27/2023 Orders Only [facility] MEDICINE [address] [place] [id number] Provider, MD Natasha Social History Tobacco Use [...] Description 12/10/2024 10:30 AM EDT Medication Management [address] [address] 12/15/2024 9:15 AM EDT Office Visit [address] [address] Audrey Smith MD [address] [place] [phone] 05/05/2025 9:00 AM EDT Immunization [address] [address] documented as of this encounter Procedures Procedure [...] EDT Narrative 03/30/2023 11:21 AM EDT ? [facility] ?[address] ?[place] [address] ?XRay Report ? Signed ? Patient: Owen Montano ?MR#: ?? [id number] ? : 1970 ?Acct:[id number] ? Age/Sex: 52 / M ?ADM Date: 03/30/23 ? Loc: HO.ED ? Attending Dr: ? Ordering Physician: Ada Mcintosh NP ?? Date of Service: 03/30/23 ?? Procedure(s): XR hip RT w PEL1V ?? Accession Number(s): [id number] ? cc: Audrey Smith MD; Ada Mcintosh [...] 1117 ? DD/ 1046 ? TD/TT: ? Director Financial Planning: ? Procedure Note Jamshid, Leigh - 03/30/2023 [facility] [address] [place] [address] XRay Report Signed Patient: Owen MontanoMR#: [id number] : 1970Acct:[id number] Age/Sex: 52 / MADM Date: 03/30/23 Loc: HO.ED Attending Dr: Ordering Physician: Ada Mcintosh NP Date of Service: 03/30/23 Procedure(s): XR hip RT w PEL1V Accession Number(s): [id number] cc: Audrey Smith MD; Ada Mcintosh NP [...] in OV> 03/30/23 1117 DD/ 1046 TD/TT: Director Financial Planning: [facility] External Provider IMG XR PROCEDURES Final Result * Hm Colonoscopy (05/22/2021) Historical Provider HEALTH MAINTENANCE Final Result documented in this encounter Visit Diagnoses Not on filedocumented in this encounter Care Teams Athlete Marketing Agent Relationship Specialty Start Date End Date Audrey Smith MD [address] [place] [phone] PCP - General Family Medicine 11/20/17 documented as of this encounter
--- OUTSIDE RECORDS SUMMARY | 2024-11-19 12:44 | XMS_ITS | Encounter Summary ---
Author Organization [facility] Address [address] [facility] [address] [place] [address] Care Team Providers Care Finish Off Operator Name Role Phone Audrey Smith MD Primary Care Provide r Encounter Details Date Type Department Care Team (Late st Contact Info) Description 08/30/2022 Orders Only [facility] MEDICINE [address] [place] [phone] Vane Cervantes MD [address] [place] [address] [phone] Muscle spasm (Primary Dx) Social History Tobacco [...] Description 12/10/2024 10:30 AM EDT Medication Management [facility] [address] [place] [address] [phone] 12/15/2024 9:15 AM EDT Office Visit [facility] [address] [place] [address] [phone] Audrey Smith MD [address] [place] [address] [phone] 05/05/2025 9:00 AM EDT Immunization [facility] [address] [place] [phone] documented as of this encounter Visit Diagnoses Diagnosis Muscle spasm- Primary Spasm of muscle documented in this encounter Care Teams Finish Off Operator Relationship Specialty Start Date End Date Audrey Smith MD [address] [place] [address] PCP - General Family Medicine 11/20/17 documented as of this encounter
--- OUTSIDE RECORDS SUMMARY | 2024-11-19 12:44 | XMS_ITS | Encounter Summary ---
Author Organization [employer] Address [address] [facility] [address] [place] [address] Care Team Providers Care Guest Experience Manager Name Role Phone Audrey Smith MD Primary Care Provide r Reason for Visit * Reason Comments Med Refill Encounter Details Date Type Department Care Team (Late st Contact Info) Description 01/10/2023 Refill [facility] MEDICINE [address] [place] [address] [phone] Name, MD Sameer [address] [place] [address] [phone] Social History Tobacco Use Types Packs/Day Years [...] Description 12/10/2024 10:30 AM EDT Medication Management [facility]INE [address] [place] [address] [phone] 12/15/2024 9:15 AM EDT Office Visit [facility] MEDICINE [address] [place] [address] [phone] Audrey Smith MD [address] [place] [address] 05/05/2025 9:00 AM EDT Immunization [facility] [address] [place] [address] documented as of this encounter Visit Diagnoses Not on filedocumented in this encounter Care Teams Guest Experience Manager Relationship Specialty Start Date End Date Audrey Smith MD [address] [place] [address] PCP - General Family Medicine 11/20/17 documented as of this encounter
--- OUTSIDE RECORDS SUMMARY | 2024-11-19 12:44 | XMS_ITS | Data Portability ---
Author Organization [facility] [employer] [facility], [id number] Address [address] [facility] [address] [place] [address] Care Team Providers Care Dispute Resolution Specialist Name Role Phone ADRI REDDY Referring Provider [phone] MAINE MORELAND Lead Auditor [phone] FREDY MORENO Psychiatrist [phone] Assessment No assessment recorded. Plan of Treatment [...] proce charleses No observ ation record ed. [email or web address] [address], [address], 08/25/2024 09:45:35 08/24/1908/24/2024 xr fluor o up to 1 hour See Note [facility] , a member of [employer] [facility] Name: OWEN TUCKER LINDA LILIA Date of : 1970 Reason for Exam: pain Exam Date: 2024 [id number] EST Report Status : Final Orderi ng [...] Edit Transc ribed Date: 2024 13:[address], [address], 08/25/2024 09:45:35 Result Notes None recorded. Problems Name Problem SNOMED Code Status Onset Date Resolution Date Notes Provider Name and Address Organization Details Recorded Time Diabetic peripheral neuropathy 062937084 Active 025 Rock Balderas MD [facility], [place] [facility] 11:30:01 Problem Notes None recorded. Procedures Surgical History None recorded. Imaging Results Imaging Date Name Status LastModified by Organiz ation Details LastModified Time 08/24/2024 procedures completed [address], [address], 08/25/2024 09:45:35 08/24/2024 xr fluoro up to [address], [address], 08/25/2024 09:45:35 Procedure Notes None recorded. Medical Equipment None Reported. Allergies Allergen ID Allergen Name Allergen Category Reaction Reaction Severity Criticality Documentation Date Start Date Code Code System Note Provider Name and Address Organization Details Recorded Time 75260 No Allergy Informati on Available Not available Not available Not available Not available 08/31/2024 18604 UNK Comme nt: shyanne e: Rere st e: Raymon en; ; Not Available [facility] 5 16:49:03 Medications Name Sig Start [...] Available No t Available BD Regular Bevel Langdon 18 gauge x 1 USE WITH testosteron [...] Available Not Available No t Available FreeStyle Gladwin Lite kit USE TWICE DAILY active Not [...] Updated DateTime 5 165.1 cm 26.3 kg/m2 96785.5 9 g 63 /min 99 % 99 % 98 [degF] 110 mm[Hg] 72 mm[Hg] Kailyn [facility] 5 11:18:47 Social History None recorded. Functional Status None recorded. Mental Status None recorded. Family History Nothing Reported. Medical History No medical history recorded. Past Encounters Encounter ID Performer Location Encounter Start Date Encounter Closed Date Diagnosis/Indication Diagnosis SNOMED-CT Code Diagnosis ICD10 Code Diagnosis Note [id number] Rock Balderas MD [id number] [facility] [address] [place] [address] 08/31/2024 09:37:10 08/31/2024 12:26:48 Diabetic peripheral neuropathy 138447191 E11.40 -patient with long-stand ing history of [...] -his current psychiatri st (Dr. Moreno-- [facility]--[phone] ) -will coordinate with Dr. Davenport for permanent SCS implant; will need to hold plavix prior to this procedure as well (Dr. Gary patel--[facility] ) -20 minutes was used for chart review, interviewi ng/examini ng, and counseling the patient during today's visit, and patient denies having any other further questions/ concerns [id number] Rock Balderas MD [id number] A_[facility] [address] [place] [address] 11/02/2024 11:11:23 11/02/2024 13:04:56 Diabetic peripheral neuropathy [id number] E11.40 -patient with long-stand ing history of bilateral foot pain, likely 2/2 diabetes and HTN induced neuropathy -patient did quite well with SCS trial, and underwent SCS implant on 10/04/24; currently reports that pain is significan tly improved -his current psychiatri st (Dr. Moreno-- [facility]--[phone] ) -35 minutes was used for chart [...] Price Member ID Guarantor Name 08/31/2024 1 [place] [facility] Owen Hurd [id number] Owen Hurd 11/02/2024 1 [place] [facility] Owen Hurd [id number] Owen Hurd Notes Date Note Type Note [...] Of note, patient is on PLAVIX (sees [facility]).? ? ?he reports that performing activities [...] applied to insertion sites. Rock Balderas MD [facility] [place] [facility] 11/02/2024 12:21:06 11/02/2024 text/html Owen Hurd is a pleasant 53 y.o. year old male, who has a past medical history of Diabetes mellitus (HCC), Disease of thyroid gland, Hypercholesteremia, Hypertension, and Sleep apnea. CAD s/p stentx3, who presents with moderate bilateral foot/ankle pain for several years. he denies any inciting events. Of note, patient is on PLAVIX (sees [facility]).? ? ?he reports that performing activities [...] SCS implant on 10/04/24. We had the senior customer service representative from [employer] also present at today's visit. With additional [...] sites are healing well. Rock Balderas MD [facility], [place] - [facility] 11/02/2024 12:40:27
--- OUTSIDE RECORDS SUMMARY | 2024-11-19 12:44 | XMS_ITS | Encounter Summary ---
Author Organization [employer] Address [address] [facility] 7[address] [place] [address] Care Team Providers Care Animal Chiropractor Name Role Phone Audrey Smith MD Primary Care Provide r Reason for Visit * Reason Comments Med Refill Encounter Details Date Type Department Care Team ([facility] st Contact Info) Description 11/01/2024 Refill [facility] [address] [place] [address] Audrey Smith MD [address] [place] [address] Diabetic polyneuropathy associated with type 2 diabetes [...] Description 12/10/2024 10:30 AM EDT Medication Management [facility] [address] [place] [address] 12/15/2024 9:15 AM EDT Office Visit [facility] [address] [place] [phone] Audrey Smith MD [address] [place] [address] 05/05/2025 9:00 AM EDT Immunization [facility] [address] [place] [address] documented as of this encounter Visit Diagnoses Diagnosis Diabetic polyneuropathy associated with type 2 diabetes mellitus (CMS/HCC) documented in this encounter Additional Health Concerns Assessment Noted Time PHQ-9 Depression Total Score: 0 05/21/20 9:38 AM EDT documented as of this encounter Care Teams Animal Chiropractor Relationship Specialty Start Date End Date Audrey Smith MD [address] [place] [phone] PCP - General Family Medicine 11/20/17 documented as of this encounter
--- OUTSIDE RECORDS SUMMARY | 2024-11-19 12:44 | XMS_ITS | Clinical Summary ---
Author Organization [employer] Address [address] [facility] 7t [place] [address] Care Team Providers Care Bakery Products Checker Name Role Phone Audrey Smith MD Primary [...] MOUTH EVERYDAY AT NOON 023 Active Zenpep 5000-07517 units capsule delayed-release particles capsule Take 1 [...] complication, without long-term current use of insulin ([facility]) TEST BLOOD SUGAR TWICE DAILY 100 each Active Blood Glucose Monitoring Suppl (FreeStyle Lite) w/Device kitIndications:T ype 2 diabetes mellitus with hyperglycemia, without long-term current use of insulin ([facility]) 1 kit 2 times daily. 1 kit Active FREESTYLE LITE test stripIndications :Type 2 diabetes mellitus with hyperglycemia, without long-term current use of insulin ([facility]) TEST BLOOD SUGAR TWICE DAILY 50 [...] MG EC tabletIndication s:Coronary artery disease involving [place] coronary artery of [place] heart, unspecified whether angina present TAKE 1 TABLET BY MOUTH EVERYDAY AT NOON 90 tablet 1 Active clopidogrel (Plavix) 75 MG tabletIndication s:Coronary artery disease involving [place] coronary artery of [place] heart, unspecified whether angina present TAKE 1 [...] 24 hr tabletIndication s:Coronary artery disease involving [place] coronary artery of [place] heart, unspecified whether angina present TAKE 1 [...] 2 diabetes mellitus without complication, unspecified 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 Administered at office ([facility]) Active B-D 3CC LUER-CHRISTINE SYR 22IZ7-5/2 21G X 1-2 3 ML misc USE [...] tells me she he was out of [facility] because of insurance and just started on [...] of colon 11/20/2017 Hyperuricemia 11/20/2017 CAD in [place] artery 11/20/2017 Benign prostatic hyperplasia with nocturia [...] will continue with same medications, I extensibly estate planning counselor him about diabetic diet and let him know his glucose also will likely go down after back injections wears out - Encounters Date Type Department Care Team Description 11/08/2024 Orders Only GENERIC EXTERNAL DATA DEPARTMENT Provider, Generic External Data 11/03/2024 9:05 AM EDT Nurse Only [facility] [address] [place] [address] Tori Templeton LPN Encounter for immunization (Primary Dx) 11/03/2024 Travel 11/02/2024 Orders Only [facility] [address] [place] [address] Audrey Smith MD 11/02/2024 Travel 11/01/2024 Refill [facility] [address] [place], [place] [phone] Audrey Smith MD Diabetic polyneuropathy associated with type 2 diabetes mellitus ([facility]) 11/01/2024 Refill [facility] [address] [place], [place] [phone] Audrey Smith MD Diabetic polyneuropathy associated with type 2 diabetes mellitus ([facility]/HCC) 10/26/2024 Telephone [facility] [address] [place] [address] Audrey Smith MD 10/22/2024 Refill [facility] [address] [place] [address] Audrey Smith MD Diabetic polyneuropathy associated with type 2 diabetes mellitus (CMS/HCC) 10/01/2024 Population Health Risk Score [facility] (C3) Department [address] [place] [phone] Provider, Population Health Generic 09/17/2024 10:00 AM EST Office Visit [facility] [address] [place] [address] Audrey Smith MD Essential hypertension (Primary Dx); Type 2 diabetes mellitus with hyperglycemia, without long-term current use of insulin ([facility]) 09/17/2024 Travel 09/15/2024 Orders Only GENERIC EXTERNAL DATA DEPARTMENT Provider, Generic External Data 09/03/2024 Patient Outreach [facility] [address] [place] [address] Audrey Smith MD Pre-visit Planning (SDOH screening negative and tobacco screening negative) 08/30/2024 Orders Only GENERIC EXTERNAL DATA DEPARTMENT Provider, Generic External Data 08/26/2024 Orders Only [facility] [address] [place] [address] Audrey Smith MD Type 2 diabetes mellitus with hyperglycemia, without long-term current use of insulin ([facility]) (Primary Dx) 08/26/2024 Refill [facility] [address] [place], [place] [phone] Audrey Smith MD Diabetic polyneuropathy associated with type 2 diabetes mellitus ([facility]/HCC) 08/25/2024 Orders Only GENERIC EXTERNAL DATA DEPARTMENT [...] Description 12/10/2024 10:30 AM EDT Medication Management [facility] [address] [place] [address] 12/15/2024 9:15 AM EDT Office Visit [facility] [address] [place] [address] Audrey Smith MD [address] [place] [address] 05/05/2025 9:00 AM EDT Immunization [facility] [address] [place] [address] Health Maintenance Due Date Last Done Comments [...] use of insulin ([facility]) POCT GLUCOSE Routine 09/17/2024 9:49 AM EST Type 2 diabetes mellitus with hyperglycemia, without long-term current use of insulin (CMS/[facility]) TESTOSTERONE, TOTAL, MALES (ADULT), IA Routine 09/15/2024 7:28 AM EST HEMATOXYLIN AND EOSIN STAIN Routine 08/30/2024 12:43 PM EST GLUCOSE, WHOLE BLOOD Routine 08/30/2024 11:15 AM EST LIPID PANEL, STANDARD Routine 08/25/2024 7:10 AM EST ALBUMIN, RANDOM URINE W/CREATININE Routine 06/02/2024 8:55 AM EST Type 2 diabetes mellitus with hyperglycemia, without long-term current use of insulin (CMS/[facility]) HM COLONOSCOPY Routine 05/22/2021 ZZZ HISTORICAL HIV AB/AG Routine 10/01/2019 10:28 AM EDT from Last 3 Months or Most Recently Relevant to Health Maintenance Results * CBC (11/08/2024 9:04 AM EDT) White Blood Count 6.6 4.8 - 10.8 X10*3/uL [facility] Red Blood Count 5.59 4.60 - 5.80 X10*6/uL [facility] Hemoglobin 16.9 14.0 - 18.0 g/dl [facility] Hematocrit 50.6 42.0 - 52.0 % [facility] Mean Corpuscular Volume 90.5 80.0 - 98.0 fL [facility] Mean Corpuscular Hemoglobin 30.2 27.0 - 33.0 pg [facility] Mean Corpuscular HGB Conc 33.4 31.0 - 36.0 g/dl [facility] Red Cell Distribution Width 12.5 11.0 - 16.0 % [facility] Platelet Count 222 160 - 400 X10*3/uL [facility] Mean Platelet Volume 11.4 9.4 - 12.4 fL [facility] NRBC Pct Auto 0.0 0.0 - 0.2 /100WBC [facility] NRBC Abs Auto 0.000 0.0 - 0.012 X10*3/uL [facility] 11/08/2024 9:04 AM EDT 11/08/2024 9:04 AM EDT us Generic External Data Provider LAB BLOOD ORDERAB LES Final Result [facility] [address] [place] [phone] * Testosterone, Total, males (Adult), IA (11/08/2024 9:04 AM EDT) Only the most recent of2 resultswithin the time period is included. Testosterone, Total 457 250 - 1100 ng/dL [facility] Comment:For additional infor gunnar, please refer tohttp://education.[employer]/faq/MwazqUubaunjarlnjKVNHALUXQ682(This link is being provided for informational/educational purposes only.)This test was developed and its analytical performancecharacteristics have been determined by [employer] [place], [place]. It hasnot been cleared or approved by the U.S. Food and DrugAdministration. This assay has been validated pursuantto the CLIA regulations and is used for clinicalpurposes.THIS TEST WAS PERFORMED AT:[employer] [place] [address]PNBQHAI W. MASON,MD,PHD 11/08/2024 9:04 AM EDT 11/08/2024 9:04 AM EDT Generic External Data Provider LAB BLOOD ORDERAB LES Final Result Performing Organization Address [facility]/ZIP Co de Phone Number [facility] [address] [place] [phone] * PSA,Total (11/08/2024 9:04 AM EDT) Prostate Specific Antigen 0.67 <0.05 - 4.0 ng/mL [facility] Comment:PSA methodology: Abb nelsy Alimaria c i ChemiluminescentMicroparticle Immunoassay (CMIA) 11/08/2024 9:04 AM EDT 11/08/2024 9:04 AM EDT Generic External Data Provider LAB BLOOD ORDERAB LES Final Result Performing Organization Address City/[facility]/ZIP Co de Phone Number [facility] [address] [place] [phone] * Vitamin B12 (Cobalamin) and Folate Panel, Serum (11/02/2024 3:33 PM EDT) Vitamin B12 256 200 - 900 pg/mL [facility] Comment:NORMAL 200-900 PG/ML INDETERMINATE 160-199 PG/ML DEFICIENT < 160 PG/ML Folate 12.4 > or = 4.0 ng/mL [facility] Comment:Reference Values:> o r = 4.0 ng/mL< 4.0 ng/mL suggests folate deficiency Methotrexate, aminopterin and folinic acid(leucovorin) are chemotherapeutic agents whose molecularstructures are similar to folate; therefore, the Architectfolate assay cannot be used for patients using these drugs. 11/02/2024 3:33 PM EDT 11/02/2024 4:10 PM EDT Audrey Holman MD LAB BLOOD ORDERABLES Final Result [facility] [address] [place] [address] [phone] * (ABNORMAL) POCT HGB A1C (09/17/2024 [...] PM EST 08/30/2024 1:14 PM EST Narrative [facility] - 08/31/2024 3:23 PM EST ----- ------- Name: Owen Montano ?Age/Sex: 53/M ? : 1970 Unit#: [id number] ?? Attend Dr: Francesca Leyva MD ?Re08/30/24 ?Status: DEP SDC ? Location: HO.SSS ?Disch: ? ----- ------- SPEC : [id number] ?RECD: 08/30/24-1313 ? STATUS: ??SOUT ? REQ NUM: [id number] ? JUAN FRANCISCO: 08/30/24-3 ? SUBM DR: Francesca Leyva MD ? ENTERED: ??08/30/24-2 ?SP TYPE: Surgical ? OTHR DR: Audrey [...] microscopic examination, 2 pieces in cassette [facility] Copies To: ?? Audrey Smith MD ?? [facility] ?? [address] ?? [place] [address] ?? [phone] ?? Francesca Leyva MD ?? [facility] ?? [address] ?? [place] [address] ?? [phone] ----- ------- Signed (signature on file) Samantha Olson MD 08/31/24 1523 ? ----- ------- ? END OF REPORT ? Generic External Data Provider LAB BLOOD ORDERAB LES Final Result Performing Organization Address [facility] de Phone Number [facility] [address] [place] [address] [phone] * (ABNORMAL) Glucose, Whole Blood (08/30/2024 11:15 AM EST) Glucose, Whole Blood 134(H) 60 - 115 mg/dL [facility] Comment:METER #: [id number] 08/30/2024 11:1 5 AM EST 08/30/2024 11:21 AM EST Generic External Data Provider LAB BLOOD ORDERAB LES Final Result Performing Organization Address [facility] Co de Phone Number [facility] [address] [place] [phone] * (ABNORMAL) Lipid Panel, Standard (08/25/2024 7:10 AM EST) Triglycerides 181(H) <150 mg/dL [facility] Comment:Desirable Triglyceri de: less than 150 mg/dLBorderline High Triglyceride 150-199 mg/dLHigh Triglyceride: 200-499 mg/dLVery High Triglyceride: greater than or equal to 5OO mg/dL Cholesterol 142 <200 mg/dL [facility] Comment:Desirable Cholestero l: less than 200 mg/dLBorderline High Cholesterol: 200-239 mg/dLHigh Cholesterol: greater than 239 mg/dL LDL Cholesterol Calculated 68 <100 mg/dL [facility] Comment:Desirable LDL: less than 100 mg/dLNear Optimal/Above Optimal LDL: 110- 129 mg/dLBorderline High LDL: 130-159 mg/dLHigh LDL: 160-189 mg/dLVery High LDL: greater than or equal to 190 mg/dL HDL Cholesterol 38(L) >40 mg/dL [facility] Comment:Desirable HDL: great er than 40 mg/dL Note: This HDL assay may give artificially low results in patients with liver disease. 08/25/2024 7:10 AM EST 08/25/2024 7:10 AM EST us Generic External Data Provider LAB BLOOD ORDERAB LES Final Result Performing Organization Address [facility]/ZIP Co de Phone Number [facility] [address] [place] [phone] * Albumin, Random Urine W/Creatinine (06/02/2024 8:55 AM EST) Creatinine, Urine 107.27 mg/dL [facility] Microalbumin Urine <5.0 mg/L [facility] Microalbum Creatinine Ratio Ur TNP <30 ug/mg cr [facility] Comment:Unable to calculate albumin/creatinine ratio due to lowmicroalbumin or creatinine result. Urine (Urine, Random) 06/02/2024 8:55 AM EST 06/02/2024 10:47 AM EST us Audrey Holman MD LAB URINE ORDERABLES Final Result Performing Organization Address City/[facility]/ZIP Co de Phone Number [facility] [address] [place] [phone] * Hm Colonoscopy (05/22/2021) us Historical [...] detection of this assay. ?? [employer] HIV Ag/Ab Combo assay result and supplemental assay results should be interpreted in conjunction with the patient's clinical presentation, history and other laboratory results. ??If the results are inconsistent with clinical evidence, additional testing is suggested to confirm the result. 10/01/2019 10:2 8 AM EDT us Audrey Holman MD HISTORICAL/NON ORDERA BLE LABS Final Result [facility] [address] from Last 3 Months or Most Recently Relevant to Health Maintenance Insurance [employer] C3 Care Teams Bakery Products Checker Relationship Specialty Start Date End Date Audrey Smith MD [address] [place] [address] PCP - General Family Medicine 11/20/17
--- OUTSIDE RECORDS SUMMARY | 2024-11-19 12:44 | XMS_ITS | Clinical Summary ---
Author Organization 175 [facility] Address [address] [place] [address] Phone Care Team Providers Care Editing Clerk Name Role Phone Audrey Smith MD Primary [...] not requiring any pain medication. Sarbjit from [employer] is here as well to go over [...] pain med refills today. We used [employer] high tension tester Leeanna #[phone], [employer] #[id number]. Chronic pain syndrome 09/21/2024 Diabetic neuropathy, painful ([facility] V24, CMS/H CC V28) 09/14/2024 Assessment & Plan (09/14/2024 4:44 PM EST): I reviewed the steps involved in placement of the spinal cord stimulator leads and generator with the patient in conjunction with Sarbjit the independent sales representative from [employer] and a hospital laboratory technician. I demonstrated the position of each incision [...] hyperglycemia, without long-term current use of insulin ([facility] V24, [facility] V28) 12/04/2022 Stented coronary artery 11/20/2017 Essential hypertension 11/20/2017 Anxiety 11/20/2017 Acquired hypothyroidism 11/20/2017 Encounters Date Type Department Care Team Description 11/01/2024 9:15 AM EDT Office Visit Orthopedic Surgery [facility] 250 175 [facility] 250 [place] [phone] Aaron Graves, DPM Diabetic mononeuropathy simplex ([facility] V24, [facility] V28) (Primary Dx); Primary osteoarthritis of both feet 10/19/2024 10:25 AM EDT - 10/19/2024 11:59 PM EDT Hospital Encounter [facility] Xray [address] [place] [phone] S/P insertion of spinal cord stimulator Discharge Disposition: Home or Self Care 10/15/2024 2:15 PM EDT Office Visit Neurosurgery [facility] [address] [address] Adali Hogue PA S/P insertion of spinal cord stimulator (Primary Dx) 10/04/2024 10:35 AM EDT Anesthesia Event [facility] Main OR [address] [place] [address] Erwin Pelletier MD Claudio, Raymund, JOCE 10/04/2024 10:30 AM EDT - 10/04/2024 12:00 PM EDT Surgery [facility] Main OR [address] [place] [address] Cara Davenport MD placement of spinal cord stim(left) including leads on to be done with Dr. Parsons [71126 (CPT??) +1 more] 10/04/2024 8:28 AM EDT - 10/04/2024 3:49 PM EDT Hospital Encounter [facility] Main OR [address] [place] [phone] Cara Davenport MD Discharge Disposition: Home or Self Care 10/04/2024 7:05 AM EDT - 10/04/2024 11:59 PM EDT Hospital Encounter [facility] Xray [address] [place] [address] Pain Discharge Disposition: Home or Self Care 09/14/2024 3:15 PM EST Office Visit Neurosurgery [facility] [address] [address] Cara Davenport MD Diabetic neuropathy, painful (CMS/HCC V24, CMS/HCC V28) (Primary Dx) 08/24/2024 9:47 AM EST Anesthesia Event [facility] Pain Management [address] [place] [address] Jonatan Alvarado DO 08/24/2024 7:08 AM EST - 08/24/2024 11:59 PM EST Hospital Encounter [facility] [address] [place] [address] Rock Parsons MD Walsh, Michael, DO Weiss, Ashley, CRNA Type 2 diabetes mellitus with diabetic polyneuropathy, unspecified whether group home insulin use (CMS/[facility]) [E11.42] (Primary Dx); Type 2 diabetes mellitus with diabetic polyneuropathy (CMS/[facility] V24, CMS/HCC V28); Peripheral polyneuropathy [G62.9] Discharge Disposition: Home or Self Care 08/24/2024 6:05 AM EST - 08/24/2024 11:59 PM EST Hospital Encounter [facility] Xray [address] [place] [address] Pain Discharge Disposition: Home or Self Care from Last 3 Months Immunizations Name Administration Dates Next Due COVID-19 (Moderna/Spikevax) 12yo and older 07/10/2022 Hepatitis B (Blqcqjp-M-Jrtnk , Recombivax HB-Adult) 19yo and older 12/07/2020,01/25/2019,12/25/2018 Influenza Quadrivalent, 0.5m l, preservative free (Fluarix; FluLaval; Fluzone) ages 6mo and older (Afluria) 3yo and older 05/16/2023,04/18/2022,04/13/2021,2019 Influenza Quadrivalent, with preservative (Fluzone; Afluria) 6mo and older 05/24/2019,04/07/2018 Influenza trivalent, 0.5mL, preservative free (Fluarix; FluLaval; Fluzone) ages 6mo and older (Afluria) 3 years and older 05/21/2024 Similar Pages (ages 12 & older) ADDY S-CoV-2 COVID-19, [...] IMPLANT 10/04/2024 Dr. Davenport and Dr. Parsons, [facility] Medical History Medical History Date Comments Diabetes mellitus ([facility] V24, [facility] V28) Hypertension Disease [...] AM EDT Office Visit Orthopedic Surgery - [place] [address] [phone] Aaron Graves, NEFTALI [address] [address] Health Maintenance Due Date Last Done Comments [...] this topic Medical Devices Implanted Type Area Automotive Sales Specialist Device Identifier Shelf Expiration Date Model / Serial / Lot Lead Linear Trial St - [id number] - [id number] Implanted:Qty : 1 on 08/24/2024 by Rock Parsons MD at [facility] Neurostim Right: Back [employer] 03/23/2026 [id number] / [id number] / [id number] Lead Linear Trial St - [id number] - [id number] Implanted:Qty : 1 on 08/24/2024 by Rock Parsons MD at [facility] Neurostim Left: Back [employer] 03/15/2026 [id number] / [id number] / [id number] Generator Implant Pulse Ww Alpha - [id number] - [id number] Implanted:Qty : 1 on 10/04/2024 by Cara Davenport MD at [facility] Neurostim Left: Back [employer] [id number] 06/22/2026 [id number] / [id number] / [id number] Powder Surgifoam Absorb Gel - Sna - [id number] Implanted:Qty : 1 on 10/04/2024 by Cara Davenport MD at [facility] [employer] Left: Back [employer] [id number] 06/28/2026 1978 / [id number] / [id number] Linearv Contact Lead Set Implanted:Qty : 1 on 10/04/2024 by Cara Davenport MD at [facility] Left: Back [employer] 08/13/2026 [id number] / [id number] / [id number] Linear Contact Lead Kit Implanted:Qty : 1 on 10/04/2024 by Cara Davenport MD at [facility] Left: Back [employer] 08/13/2026 [id number] / [id number] / [id number] Procedures Procedure Name Priority Date/Time Associated Diagnosis Comments XR LUMBAR SPINE 2-3 VIEWS Routine 10/19/2024 11:21 AM EDT S/P insertion of spinal cord stimulator POCT GLUCOSE BLOOD Routine 10/04/2024 1: 33 PM EDT XR LUMBAR SPINE 2-3 VIEWS Routine 10/04/2024 12:21 PM EDT Pain TH AN ENDOTRACHEAL(NO CHARGE) Routine 10/04/2024 11:20 AM EDT AR INS/REPL SPN NSTIM PG/REC REQ PCKT CREATION BTW ELTRD ARRAY & PG/REC 10/04/2024 10:40 AM EDT Chronic pain syndrome Case Notes [employer] [place] [employer] spinal cord stim AR IMPLANTATION NEUROSTIMULATOR ELECTRODE ARRAY EPIDURAL PERCUTANEOUS 10/04/2024 10:40 AM EDT Chronic pain syndrome Case Notes [place] [employer] spinal cord stim POCT GLUCOSE BLOOD [...] Signed Date: 10/19/2024 13:39 ET Workstation ID: [id number] Transcribed By: Self Edit Transcribed Date: 10/19/2024 [...] leads appear to be terminating at the P19tgdqn. The leads appear intact. I cannot confirm integrity of the L5 pars interarticulares. Bilateral F6ifgyufjozuqac may be present. IMPRESSION: There are 2 leads projecting in the lower spinal canal. They terminateposterior to the T12 and L1 levels. On 10/04/24 both appear to terminate atthe T12 level. -------- FINAL REPORT -------- Dictated By: Horace Morales Dictated Date: 10/19/2024 13:35 ET Assigned Physician: Horace Morales Reviewed and Electronically Signed By: Horace Morales Signed Date: 10/19/2024 13:39 ET Workstation ID: [id number] Transcribed By: Self Edit Transcribed Date: 10/19/2024 13:35 ET us Adali ETIENNE IMG XR PROCEDURES Final Re sult * (ABNORMAL) POCT Glucose, blood (10/04/2024 1:33 PM EDT) Only the most recent of3 resultswithin the time period is included. Glucose POCT 213(H) 70 - 100 mg/dL 10/04/2024 1:34 PM EDT [facility] Blood Capillary blood specimen / Unknown 10/04/2024 1:33 PM EDT 10/04/2024 1:35 PM EDT us Cara Davenport MD LAB POINT OF CARE TE ST DOCKED DEVICE UNSOLICITED RESULTS Final Result [facility] [address] [place] [address], [place] [phone] * TH AN ENDOTRACHEAL(NO CHARGE) (10/04/2024 11:20 [...] Signed Date: 08/24/2024 13:23 ET Workstation ID: [id number] Transcribed By: Self Edit Transcribed Date: 08/24/2024 [...] Signed Date: 08/24/2024 13:23 ET Workstation ID: [id number] Transcribed By: Self Edit Transcribed Date: 08/24/2024 13:23 ET us Rock Parsons MD IMG FLUOROSCOPY PROCEDURES Fin al Result from Last 3 Months Insurance , [address] [place] [address] MEDICA[place] - [place] , [address] [place] [address] Advance Directives * Full Code - Default [...] currently active code status orders. Care Teams Editing Clerk Relationship Specialty Start Date End Date Audrey Smith MD [address] [phone] PCP - General 07/01/23
--- OUTSIDE RECORDS SUMMARY | 2024-11-19 12:44 | XMS_ITS | Encounter Summary ---
Author Organization [employer] Address [address] [facility] 7t [place] [address] Care Team Providers Care Clinical Science Liaison Name Role Phone Audrey Smith MD Primary Care Provide r Reason for Visit * Reason Comments Med Refill Encounter Details Date Type Department Care Team ([facility] st Contact Info) Description 10/22/2024 Refill [facility] [address] [place] [address] Audrey Smith MD 230 [place] [address] Diabetic polyneuropathy associated with type 2 diabetes [...] 12/10/2024 10:30 AM EDT Medication Management [facility] [address] [place] [address] 12/15/2024 9:15 AM EDT Office Visit [facility] [address] [place] [address] Audrey Smith MD [address] [place] [address] 05/05/2025 9:00 AM EDT Immunization [facility] [address] [place] [phone] documented as of this encounter Visit Diagnoses Diagnosis Diabetic polyneuropathy associated with type 2 diabetes mellitus (CMS/HCC) documented in this encounter Additional Health Concerns Assessment Noted Time PHQ-9 Depression Total Score: 0 05/21/20 9:38 AM EDT documented as of this encounter Care Teams Clinical Science Liaison Relationship Specialty Start Date End Date Audrey Smith MD [address] [place] [phone] PCP - General Family Medicine 11/20/17 documented as of this encounter
--- OUTSIDE RECORDS SUMMARY | 2024-11-19 12:44 | XMS_ITS | Encounter Summary ---
Author Organization [employer] [facility] Address [address] [facility] 7t [place] [address] Care Team Providers Care Freight Brake Operator Name Role Phone Audrey Smith MD Primary Care Provide r Encounter Details Date Type Department Care Team (Late st Contact Info) Description 10/10/2022 Orders Only [facility] [address] [place] [phone] Uzma Tyler LPN Social History Tobacco Use [...] Description 12/10/2024 10:30 AM EDT Medication Management [address] [address] 12/15/2024 9:15 AM EDT Office Visit [facility] [address] [place] [address] Audrey Smith MD [address] [place] [address] 05/05/2025 9:00 AM EDT Immunization [facility] [address] [place] [address] documented as of this encounter Visit Diagnoses Not on filedocumented in this encounter Care Teams Freight Brake Operator Relationship Specialty Start Date End Date Audrey Smith MD 230 [place] [address] PCP - General Family Medicine 11/20/17 documented as of this encounter
--- OUTSIDE RECORDS SUMMARY | 2024-11-19 12:44 | XMS_ITS | Encounter Summary ---
Author Organization [employer] Address [address] [facility] 7t [place] [address] Care Team Providers Care Foster Care Therapist Name Role Phone Audrey Smith MD Primary Care Provide r Reason for Visit * Reason Comments Med Refill Encounter Details Date Type Department Care Team ([facility] Contact Info) Description 03/09/2023 Refill [facility] [address] [place], [place] [phone] Alice Huber MD 230 [place], [place] [phone] Type 2 diabetes mellitus without complication, unspecified whether jail insulin use ([facility]) Social History Tobacco Use Types Packs/Day [...] Upcoming Encounters Date Type Department Care Team ([facility] Contact Info) Description 12/10/2024 10:30 AM EDT Medication Management [facility] [address] [place] [phone] 12/15/2024 9:15 AM EDT Office Visit [facility] [address] [place] [phone] Audrey Smith MD [address] [place], [place] [phone] 05/05/2025 9:00 AM EDT Immunization [facility] 230 [place] [address] documented as of this encounter Visit Diagnoses Diagnosis Type 2 diabetes mellitus without complication, unspecified whether jail insulin use ([facility]) documented in this encounter Care Teams Foster Care Therapist Relationship Specialty Start Date End Date Audrey Smith MD 230 [place] [address] PCP - General Family Medicine 11/20/17 documented as of this encounter
--- OUTSIDE RECORDS SUMMARY | 2024-11-19 12:44 | XMS_ITS | Clinical Summary ---
Author Organization [facility] Address [address] [place] [address] Care Team Providers Care Wall Covering Contractor Name Role Phone Unavailable Primary Care Provider [...]
== END 2024-11-19 12:59 | disposition home or self-care (01) ==
LOC: HO.HGI 11:53
PROVIDERS: PCP Internal Medicine; Visit Provider Nurse Practitioner
DX: K21.9 Gastro-esophageal reflux disease without esophagitis (principal); K58.0 Irritable bowel syndrome with diarrhea; K75.81 Nonalcoholic steatohepatitis (NASH); E11.8 Type 2 diabetes mellitus with unspecified complications
CPT/HCPCS: 99214

== ENCOUNTER 2024-11-19 11:52 | Outpatient (REF) | payer MEDICAID, SELFPAY ==
--- OUTSIDE RECORDS SUMMARY | 2024-11-19 13:25 | XMS_ITS | Clinical Summary ---
Author Organization 175 [facility] Address [address] [place] [address] Phone Care Team Providers Care Public Finance Specialist Name Role Phone Audrey Smith MD [...] not requiring any pain medication. Sarbjit from [employer] is here as well to go over any questions, how to use the remote and stimulator. Patient's been ambulating, but not overdoing things, careful not to do any heavy lifting. They just took the bandages off his incision today prior to coming in. Mr. Roi Hurd is doing well s/p spinal cord [...] pain med refills today. We used [employer] peanut shaker Leeanna #[phone], [employer] #[id number]. Chronic pain syndrome 09/21/2024 Diabetic neuropathy, painful ([facility] V24, CMS/H CC V28) 09/14/2024 Assessment & Plan (09/14/2024 4:44 PM EST): I reviewed the steps involved in placement of the spinal cord stimulator leads and generator with the patient in conjunction with Sarbjit the advertising sales representative from [employer] and a commercial electrician. I demonstrated the position of each incision [...] hyperglycemia, without long-term current use of insulin ([facility] V24, [facility] V28) 12/04/2022 Stented coronary artery 11/20/2017 Essential hypertension 11/20/2017 Anxiety 11/20/2017 Acquired hypothyroidism 11/20/2017 Encounters Date Type Department Care Team Description 11/01/2024 9:15 AM EDT Office Visit Orthopedic Surgery [facility] 250 175 [facility] 250 [place] [phone] Aaron Graves, DPM Diabetic mononeuropathy simplex ([facility] V24, [facility] V28) (Primary Dx); Primary osteoarthritis of both feet 10/19/2024 10:25 AM EDT - 10/19/2024 11:59 PM EDT Hospital Encounter [facility] Xray [address] [place] [phone] S/P insertion of spinal cord stimulator Discharge Disposition: Home or Self Care 10/15/2024 2:15 PM EDT Office Visit Neurosurgery [facility] [address] [phone] Adali Hogue PA S/P insertion of spinal cord stimulator (Primary Dx) 10/04/2024 10:35 AM EDT Anesthesia Event [facility] Main OR [address] [place] [address] Erwin Pelletier MD Claudio, Raymund, JOCE 10/04/2024 10:30 AM EDT - 10/04/2024 12:00 PM EDT Surgery [facility] Main OR [address] [place] [address] Cara Davenport MD placement of spinal cord stim(left) including leads on to be done with Dr. Parsons [68010 (CPT??) +1 more] 10/04/2024 8:28 AM EDT - 10/04/2024 3:49 PM EDT Hospital Encounter [facility] Main OR [address] [place] [phone] Cara Davenport MD Discharge Disposition: Home or Self Care 10/04/2024 7:05 AM EDT - 10/04/2024 11:59 PM EDT Hospital Encounter [facility] Xray [address] [place] [address] Pain Discharge Disposition: Home or Self Care 09/14/2024 3:15 PM EST Office Visit Neurosurgery [facility] [address] [address] Cara Davenport MD Diabetic neuropathy, painful (CMS/HCC V24, CMS/HCC V28) (Primary Dx) 08/24/2024 9:47 AM EST Anesthesia Event [facility] [address] [place] [address] Jonatan Alvarado DO 08/24/2024 7:08 AM EST - 08/24/2024 11:59 PM EST Hospital Encounter [facility] [address] [place] [address] Rock Parsons MD Walsh, Michael, DO Weiss, Ashley, CRNA Type 2 diabetes mellitus with diabetic polyneuropathy, unspecified whether senior care insulin use (CMS/[facility]) [E11.42] (Primary Dx); Type 2 diabetes mellitus with diabetic polyneuropathy (CMS/[facility] V24, CMS/HCC V28); Peripheral polyneuropathy [G62.9] Discharge Disposition: Home or Self Care 08/24/2024 6:05 AM EST - 08/24/2024 11:59 PM EST Hospital Encounter [facility] Xray [address] [place] [address] Pain Discharge Disposition: Home or Self Care from Last 3 Months Immunizations Name Administration Dates Next Due COVID-19 (Moderna/Spikevax) 12yo and older 07/10/2022 Hepatitis B (Kbvwflk-I-Sktrk , Recombivax HB-Adult) 19yo and older 12/07/2020,01/25/2019,12/25/2018 Influenza Quadrivalent, 0.5m l, preservative free (Fluarix; FluLaval; Fluzone) ages 6mo and older (Afluria) 3yo and older 05/16/2023,04/18/2022,04/13/2021,2019 Influenza Quadrivalent, with preservative (Fluzone; Afluria) 6mo and older 05/24/2019,04/07/2018 Influenza trivalent, 0.5mL, preservative free (Fluarix; FluLaval; Fluzone) ages 6mo and older (Afluria) 3 years and older 05/21/2024 [employer] (ages 12 & older) ADDY S-CoV-2 COVID-19, [...] IMPLANT 10/04/2024 Dr. Davenport and Dr. Parsons, [facility] Medical History Medical History Date Comments Diabetes mellitus ([facility] V24, [facility] V28) Hypertension Disease of thyroid [...] AM EDT Office Visit Orthopedic Surgery - [place] [address] [phone] Aaron Graves, NEFTALI [address] [address] Health Maintenance Due Date Last Done Comments [...] this topic Medical Devices Implanted Type Area Family Dinner Service Specialist Device Identifier Shelf Expiration Date Model / Serial / Lot Lead Linear Trial St - [id number] - [id number] Implanted:Qty : 1 on 08/24/2024 by Rock Parsons MD at [facility] Neurostim Right: Back [employer] 03/23/2026 [id number] / [id number] / [id number] Lead Linear Trial St - [id number] - [id number] Implanted:Qty : 1 on 08/24/2024 by Rock Parsons MD at [facility] Neuro[employer] Left: Back [employer] 03/15/2026 [id number] / [id number] / [id number] Generator Implant Pulse Ww Alpha - [id number] - [id number] Implanted:Qty : 1 on 10/04/2024 by Cara Davenport MD at [facility] [employer] Left: Back [employer] [id number] 06/22/2026 [id number] 2320 / [id number] / [id number] Powder Surgifoam Absorb Gel - Sna - [id number] Implanted:Qty : 1 on 10/04/2024 by Cara Davenport MD at [facility] [employer] Left: Back [employer] [id number] 06/28/2026 1978 / NA / [id number] Linearv Contact Lead Set Implanted:Qty : 1 on 10/04/2024 by Cara Davenport MD at [facility] Left: Back [employer] 08/13/2026 SC-2218 -50 / [id number] / [id number] Linear Contact Lead Kit Implanted:Qty : 1 on 10/04/2024 by Cara Davenport MD at [facility] Left: Back [employer] 08/13/2026 [id number] / [id number] / [id number] Procedures Procedure Name Priority Date/Time Associated Diagnosis Comments XR LUMBAR SPINE 2-3 VIEWS Routine 10/19/2024 11:21 AM EDT S/P insertion of spinal cord stimulator POCT GLUCOSE BLOOD Routine 10/04/2024 1: 33 PM EDT XR LUMBAR SPINE 2-3 VIEWS Routine 10/04/2024 12:21 PM EDT Pain TH AN ENDOTRACHEAL(NO CHARGE) Routine 10/04/2024 11:20 AM EDT GA INS/REPL SPN NSTIM PG/REC REQ PCKT CREATION BTW ELTRD ARRAY & PG/REC 10/04/2024 10:40 AM EDT Chronic pain syndrome Case Notes [employer] spinal cord stim GA IMPLANTATION NEUROSTIMULATOR ELECTRODE ARRAY EPIDURAL PERCUTANEOUS 10/04/2024 10:40 AM EDT Chronic pain syndrome Case Notes [employer] spinal cord stim POCT GLUCOSE BLOOD [...] Signed Date: 10/19/2024 13:39 ET Workstation ID: [id number] Transcribed By: Self Edit Transcribed Date: 10/19/2024 [...] leads appear to be terminating at the G43albvm. The leads appear intact. I cannot confirm integrity of the L5 pars interarticulares. Bilateral P3npkvonfnufzoo may be present. IMPRESSION: There are 2 leads projecting in the lower spinal canal. They terminateposterior to the T12 and L1 levels. On 10/04/24 both appear to terminate atthe T12 level. -------- FINAL REPORT -------- Dictated By: Horace Morales Dictated Date: 10/19/2024 13:35 ET Assigned Physician: Horace Morales Reviewed and Electronically Signed By: Horace Morales Signed Date: 10/19/2024 13:39 ET Workstation ID: [id number] Transcribed By: Self Edit Transcribed Date: 10/19/2024 [...] ST DOCKED DEVICE UNSOLICITED RESULTS Final Result [facility] [address] [place] [address], [place] [phone] * TH AN ENDOTRACHEAL(NO CHARGE) (10/04/2024 11:20 [...] Signed Date: 08/24/2024 13:23 ET Workstation ID: [id number] Transcribed By: Self Edit Transcribed Date: 08/24/2024 [...] Signed Date: 08/24/2024 13:23 ET Workstation ID: [id number] Transcribed By: Self Edit Transcribed Date: 08/24/2024 13:23 ET us Rock Parsons MD IMG FLUOROSCOPY PROCEDURES Fin al Result from Last 3 Months Insurance , [address] [place] [address] MEDICAID - [place] , [address] [place] [address] Advance Directives * Full Code - Default [...] currently active code status orders. Care Teams Public Finance Specialist Relationship Specialty Start Date End Date Audrey Smith MD [address] [phone] PCP - General 07/01/23
--- OUTSIDE RECORDS SUMMARY | 2024-11-19 13:25 | XMS_ITS | Clinical Summary ---
Author Organization [facility] Address [address] [place] [address] Care Team Providers Care Flight Control Manager Name Role Phone Unavailable Primary Care Provider [...]
[2024-11-19 13:49] LABS: Estimated Average Glucose 174 mg/dL; Hemoglobin A1c % 7.7 % (<6.0); Total Hemoglobin (HGBA1C) 4344.5331 umol/L
[2024-11-19 14:43] LABS: Alanine Aminotransferase 42 U/L (0-40); Albumin Level 4.6 g/dL (3.5-5.0); Anion Gap 12 (12-20); Aspartate Amino Transferase 28 U/L (5-37); Bilirubin Total 0.9 mg/dL (0.0-1.0); Blood Urea Nitrogen 10 mg/dL (9-16); Calcium 9.9 mg/dL (8.4-10.2); Carbon Dioxide 32 mmol/L (22-29); Chloride 100 mmol/L (96-108); Estimated Glomerular Filt Rate > 60; Glucose Random 150 mg/dL (60-115); Potassium 5.1 mmol/L (3.3-5.1); Sodium 139 mmol/L (135-145); Total Protein 6.9 g/dL (6.5-8.0)
[2024-11-19 14:44] LABS: Alkaline Phosphatase 99 U/L (39-117)
[2024-11-23 08:28] LABS: Alpha Fetoprotein 16.6 ng/mL (<6.1)
== END 2024-11-19 11:53 | disposition home or self-care (01) ==
LOC: HO.LAB 11:52
PROVIDERS: PCP Internal Medicine; Visit Provider Nurse Practitioner
DX: K21.9 Gastro-esophageal reflux disease without esophagitis (principal); K75.81 Nonalcoholic steatohepatitis (NASH); E11.8 Type 2 diabetes mellitus with unspecified complications; K58.0 Irritable bowel syndrome with diarrhea
CPT/HCPCS: 36415; 80053; 82105; 83036; 99212

== ENCOUNTER 2024-11-26 13:12 | Outpatient (AMB) | payer MEDICAID, SELFPAY ==
--- OUTSIDE RECORDS SUMMARY | 2024-11-26 13:15 | XMS_ITS | Encounter Summary ---
Author Organization [employer] Address 75 [facility] 7t [place] [address] Care Team Providers Care Glueline Worker Name Role Phone Audrey Smith MD Primary Care Provide r Reason for Visit * Reason Comments Med Refill Encounter Details Date Type Department Care Team ([facility] Contact Info) Description 03/09/2023 Refill [facility] MED & PEDS [address] [place], [place] [phone] Alice Huber MD [address] [place], [place] [phone] Type 2 diabetes mellitus without complication, unspecified whether long filler cigar roller machine insulin use ([facility]) Social History Tobacco Use Types [...] Upcoming Encounters Date Type Department Care Team ([facility] Contact Info) Description 12/10/2024 10:30 AM EDT Medication Management [facility] [address] [place] [address] [phone] 12/15/2024 9:15 AM EDT Office Visit [facility] [address] [place] [address] [phone] Audrey Smith MD [address] [place], [place] [phone] 05/05/2025 9:00 AM EDT Immunization [facility] [address] [place] [address] documented as of this encounter Visit Diagnoses Diagnosis Type 2 diabetes mellitus without complication, unspecified whether nursing home insulin use ([facility]) documented in this encounter Care Teams Glueline Worker Relationship Specialty Start Date End Date Audrey Smith MD [address] [place] [address] PCP - General Family Medicine 11/20/17 documented as of this encounter
--- OUTSIDE RECORDS SUMMARY | 2024-11-26 13:15 | XMS_ITS | Clinical Summary ---
Author Organization [facility] Address [address] [place] [address] Care Team Providers Care Die Setter Name Role Phone Unavailable Primary Care Provider [...]
--- OUTSIDE RECORDS SUMMARY | 2024-11-26 13:15 | XMS_ITS | Encounter Summary ---
Author Organization [employer] Address 75 [facility] 7t [place] [address] Care Team Providers Care Center Maker Hand Name Role Phone Audrey Smith MD Primary Care Provide r Encounter Details Date Type Department Care Team (Late Contact Info) Description 03/27/2023 Orders Only [address] [address] Provider, MD Natasha Social History Tobacco Use [...] Description 12/10/2024 10:30 AM EDT Medication Management [address] [address] 12/15/2024 9:15 AM EDT Office Visit [address] [address] Audrey Smith MD [address] [place] [address] 05/05/2025 9:00 AM EDT Immunization [address] [address] documented as of this encounter Procedures Procedure [...] EDT Narrative 03/30/2023 11:21 AM EDT ? [facility] ?[address] ?[place] [address] ?XRay Report ? Signed ? Patient: Owen Montano ?MR#: ?? [id number] ? : 1970 ?Acct:[id number] ? Age/Sex: 52 / M ?ADM Date: 03/30/23 ? Loc: HO.ED ? Attending Dr: ? Ordering Physician: Ada Mcintosh NP ?? Date of Service: 03/30/23 ?? Procedure(s): XR hip RT w PEL1V ?? Accession Number(s): [id number] ? cc: Audrey Smith MD; Ada Mcintosh [...] 1117 ? DD/ 1046 ? TD/TT: ? Telephone Operator: ? Procedure Note Leigh Breen - 03/30/2023 [facility] [address] [place] [address] XRay Report Signed Patient: Owen MontanoMR#: [id number] : 1970Acct:[id number] Age/Sex: 52 / MADM Date: 03/30/23 Loc: HO.ED Attending Dr: Ordering Physician: Ada Mcintosh NP Date of Service: 03/30/23 Procedure(s): XR hip RT w PEL1V Accession Number(s): [id number] cc: Audrey Smiht MD; Ada Mcintosh NP EXAMINATION: XR HIP, [...] in OV> 03/30/23 1117 DD/ 1046 TD/TT: Telephone Operator: [facility] External Provider IMG XR PROCEDURES Final Result * Hm Colonoscopy (05/22/2021) Historical Provider HEALTH MAINTENANCE Final Result documented in this encounter Visit Diagnoses Not on filedocumented in this encounter Care Teams Center Maker Hand Relationship Specialty Start Date End Date Audrey Smith MD [address] [place] [phone] PCP - General Family Medicine 11/20/17 documented as of this encounter
--- OUTSIDE RECORDS SUMMARY | 2024-11-26 13:16 | XMS_ITS | Clinical Summary ---
Author Organization [address] [facility] Address [address] [place] [address] Phone Care Team Providers Care Regional Telecommunications Specialist Name Role Phone Audrey Smith MD [...] not requiring any pain medication. Sarbjit from [employer] is here as well to go over [...] pain med refills today. We used [employer] piece goods packer Leeanna #[id number], Morgan #[id number]. Chronic pain syndrome 09/21/2024 Diabetic neuropathy, painful ([facility] V24, CMS/H CC V28) 09/14/2024 Assessment & Plan (09/14/2024 4:44 PM EST): I reviewed the steps involved in placement of the spinal cord stimulator leads and generator with the patient in conjunction with Sarbjit the sales representative cash registers from [employer] and a storage brine worker. I demonstrated the position of each incision [...] hyperglycemia, without long-term current use of insulin ([facility] V24, [facility] V28) 12/04/2022 Stented coronary artery 11/20/2017 Essential hypertension 11/20/2017 Anxiety 11/20/2017 Acquired hypothyroidism 11/20/2017 Encounters Date Type Department Care Team Description 11/01/2024 9:15 AM EDT Office Visit Orthopedic Surgery [facility] 250 [address] [facility] 250 [place] [phone] Aaron Graves, DPM Diabetic mononeuropathy simplex ([facility] V24, [facility] V28) (Primary Dx); Primary osteoarthritis of both feet 10/19/2024 10:25 AM EDT - 10/19/2024 11:59 PM EDT Hospital Encounter [facility] Xray [address] [place] [phone] S/P insertion of spinal cord stimulator Discharge Disposition: Home or Self Care 10/15/2024 2:15 PM EDT Office Visit Neurosurgery [facility] [address] [phone] Adali Hogue PA S/P insertion of spinal cord stimulator (Primary Dx) 10/04/2024 10:35 AM EDT Anesthesia Event [facility] Main OR [address] [place] [phone] Erwin Pelletier MD Claudio, Raymund, CRNA 10/04/2024 10:30 AM EDT - 10/04/2024 12:00 PM EDT Surgery [facility] Main OR [address] [place] [phone] Cara Davenport MD placement of spinal cord stim(left) including leads on to be done with Dr. Parsons [44186 (CPT??) +1 more] 10/04/2024 8:28 AM EDT - 10/04/2024 3:49 PM EDT Hospital Encounter [facility] Main OR [address] [place] [phone] Cara Davenport MD Discharge Disposition: Home or Self Care 10/04/2024 7:05 AM EDT - 10/04/2024 11:59 PM EDT Hospital Encounter [facility] Xray [address] [place] [phone] Pain Discharge Disposition: Home or Self Care 09/14/2024 3:15 PM EST Office Visit Neurosurgery [facility] [address] [phone] Cara Davenport MD Diabetic neuropathy, painful (CMS/HCC V24, CMS/HCC V28) (Primary Dx) from Last 3 Months Immunizations Name Administration Dates Next Due COVID-19 (Moderna/Spikevax) 12yo and older 07/10/2022 Hepatitis B (Tauiyqz-H-Sfvhi , Recombivax HB-Adult) 19yo and older 12/07/2020,01/25/2019,12/25/2018 [...] IMPLANT 10/04/2024 Dr. Davenport and Dr. Parsons, [facility] Medical History Medical History Date Comments Diabetes mellitus ([facility] V24, [facility] V28) Hypertension Disease of thyroid gland [...] AM EDT Office Visit Orthopedic Surgery - [place] [address] [phone] Aaron Graves, DPM [address] [address] Health Maintenance Due Date Last Done Comments [...] this topic Medical Devices Implanted Type Area Systems Protection Technician Device Identifier Shelf Expiration Date Model / Serial / Lot Lead Linear Trial St - [id number] - [id number] Implanted:Qty : 1 on 08/24/2024 by Rock Parsons MD at [facility] Neurostim Right: Back [employer] 03/23/2026 [id number] / [id number] / [id number] Lead Linear Trial St - [id number] - [id number] Implanted:Qty : 1 on 08/24/2024 by Rock Parsons MD at [facility] Neurostim Left: Back [employer] 03/15/2026 [id number] / [id number] / [id number] Generator Implant Pulse Ww [place] - [id number] - [id number] Implanted:Qty : 1 on 10/04/2024 by Cara Davenport MD at [facility] Neurostim Left: Back [employer] [id number] 06/22/2026 [id number] / [id number] / [id number] Powder Surgifoam Absorb Gel - Sna - [id number] Implanted:Qty : 1 on 10/04/2024 by Cara Davenport MD at [facility] [employer] Left: Back [employer] [id number] 06/28/2026 1978 / [id number] / [id number] Linearv Contact Lead Set Implanted:Qty : 1 on 10/04/2024 by Cara Davenport MD at [facility] Left: Back [employer] 08/13/2026 [id number] / [id number] / [id number] Linear Contact Lead Kit Implanted:Qty : 1 on 10/04/2024 by Cara Davenport MD at [facility] Left: Back [employer] 08/13/2026 [id number] / [id number] / [id number] Procedures Procedure Name Priority Date/Time Associated Diagnosis Comments XR LUMBAR SPINE 2-3 VIEWS Routine 10/19/2024 11:21 AM EDT S/P insertion of spinal cord stimulator POCT GLUCOSE BLOOD Routine 10/04/2024 1: 33 PM EDT XR LUMBAR SPINE 2-3 VIEWS Routine 10/04/2024 12:21 PM EDT Pain TH AN ENDOTRACHEAL(NO CHARGE) Routine 10/04/2024 11:20 AM EDT TX INS/REPL SPN NSTIM PG/REC REQ PCKT CREATION BTW ELTRD ARRAY & PG/REC 10/04/2024 10:40 AM EDT Chronic pain syndrome Case Notes [employer] spinal cord stim TX IMPLANTATION NEUROSTIMULATOR ELECTRODE ARRAY EPIDURAL PERCUTANEOUS 10/04/2024 10:40 AM EDT Chronic pain syndrome Case Notes [employer] spinal cord stim POCT GLUCOSE BLOOD Routine 10/04/2024 8: 45 AM EDT from Last 3 Months Results * XR [...] Signed Date: 10/19/2024 13:39 ET Workstation ID: [id number] Transcribed By: Self Edit Transcribed Date: 10/19/2024 [...] leads appear to be terminating at the C39muhpr. The leads appear intact. I cannot confirm integrity of the L5 pars interarticulares. Bilateral Q2yfxegpxleuxlw may be present. IMPRESSION: There are 2 leads projecting in the lower spinal canal. They terminateposterior to the T12 and L1 levels. On 10/04/24 both appear to terminate atthe T12 level. -------- FINAL REPORT -------- Dictated By: Horace Morales Dictated Date: 10/19/2024 13:35 ET Assigned Physician: Horace Morales Reviewed and Electronically Signed By: Horace Morales Signed Date: 10/19/2024 13:39 ET Workstation ID: [id number] Transcribed By: Self Edit Transcribed Date: 10/19/2024 13:35 ET us Adali ETIENNE IMG XR PROCEDURES Final Re sult * (ABNORMAL) POCT Glucose, blood (10/04/2024 1:33 PM EDT) Only the most recent of2 resultswithin the time period is included. Glucose POCT 213(H) 70 - 100 mg/dL 10/04/2024 1:34 PM EDT [facility] Blood Capillary blood specimen / Unknown 10/04/2024 1:33 PM EDT 10/04/2024 1:35 PM EDT us Cara Davenport MD LAB POINT OF CARE TE ST DOCKED DEVICE UNSOLICITED RESULTS Final Result [facility] [address] [place] [address], [place] [phone] * TH AN ENDOTRACHEAL(NO CHARGE) (10/04/2024 11:20 [...] Pelletier MD ANESTHESIA ORDERABLES Final Re sult from Last 3 Months Insurance MEDICAID - [place] Advance Directives * Full Code - Default (Latest Code Status on File) Date Activated Date Inactivated Comments 10/04/2024 8:37 AM 10/04/2024 5:54 PM This is ord er is used when code status has not been discussed with the patient, or code status is otherwise unknown/unconfirmed To update the patient's code status, place a code status order. Do not modify or discontinue any currently active code status orders. Care Teams Regional Telecommunications Specialist Relationship Specialty Start Date End Date Audrey Smith MD [address] [place] [phone] PCP - General 07/01/23
--- OUTSIDE RECORDS SUMMARY | 2024-11-26 13:16 | XMS_ITS | Encounter Summary ---
Author Organization [employer] Address 75 [facility] 7t [place] [address] Care Team Providers Care Geological Engineer Name Role Phone Audrey Smith MD Primary Care Provide r Encounter Details Date Type Department Care Team (Late st Contact Info) Description 10/10/2022 Orders Only [facility] MEDICINE [address] [place] [phone] Uzma Tyler LPN Social History Tobacco Use [...] Description 12/10/2024 10:30 AM EDT Medication Management [address] [address] 12/15/2024 9:15 AM EDT Office Visit [facility] [address] [place] [phone] Audrey Smith MD [address] [place] [phone] 05/05/2025 9:00 AM EDT Immunization [address] [address] documented as of this encounter Visit Diagnoses Not on filedocumented in this encounter Care Teams Geological Engineer Relationship Specialty Start Date End Date Audrey Smith MD [address] [place] [address] PCP - General Family Medicine 11/20/17 documented as of this encounter
--- OUTSIDE RECORDS SUMMARY | 2024-11-26 13:16 | XMS_ITS | Encounter Summary ---
Author Organization [employer] Address [address] [facility] [address] 7t [place] [address] Care Team Providers Care Senior Software Qa Analyst Name Role Phone Audrey Smith MD Primary Care Provide r Reason for Visit * Reason Comments Med Refill Encounter Details Date Type Department Care Team ([facility] st Contact Info) Description 11/22/2024 Refill [facility] CHC MED & PEDS [address] [place] [address] Audrey Smith MD 230 [place] [address] Coronary artery disease involving yurok coronary artery of yurok heart, unspecified whether angina present; Vitamin D deficiency; Hypothyroidism, unspecified type Social History Tobacco Use Types Packs/Day Years [...] Description 12/10/2024 10:30 AM EDT Medication Management [address] [address] 12/15/2024 9:15 AM EDT Office Visit [facility] MEDICINE [address] [place] [phone] Audrey Smith MD [address] [place] [address] 05/05/2025 9:00 AM EDT Immunization [facility] MEDICINE [address] [place] [phone] documented as of this encounter Visit Diagnoses Diagnosis Coronary artery disease involving yurok coronary artery of yurok heart, unspecified whether angina present Vitamin D deficiency Hypothyroidism, unspecified type documented in this encounter Additional Health Concerns Assessment Noted Time PHQ-9 Depression Total Score: 0 05/21/20 24 9:38 AM EDT documented as of this encounter Care Teams Senior Software Qa Analyst Relationship Specialty Start Date End Date Audrey Smith MD [address] [facility] [place] [address] PCP - General Family Medicine 11/20/17 documented as of this encounter
--- OUTSIDE RECORDS SUMMARY | 2024-11-26 13:16 | XMS_ITS | Encounter Summary ---
Author Organization [employer] Address [address] [facility] 7t [place] [address] Care Team Providers Care Company Accountant Name Role Phone Audrey Smith MD Primary Care Provide r Reason for Visit * Reason Comments Med Refill Encounter Details Date Type Department Care Team (Late st Contact Info) Description 01/10/2023 Refill [facility] MEDICINE [address] [place] [address] [phone] Name, MD Sameer [address] [place] [phone] Social History Tobacco Use Types Packs/Day Years [...] 12/10/2024 10:30 AM EDT Medication Management [facility] MEDICINE [address] [place] [address] [phone] 12/15/2024 9:15 AM EDT Office Visit [facility] MEDICINE [address] [place] [address] [phone] Audrey Smith MD [address] [place], [place] [phone] 05/05/2025 9:00 AM EDT Immunization [facility] MEDICINE [address] [place] [address] documented as of this encounter Visit Diagnoses Not on filedocumented in this encounter Care Teams Company Accountant Relationship Specialty Start Date End Date Audrey Smith MD [address] [place] [address] PCP - General Family Medicine 11/20/17 documented as of this encounter
--- OUTSIDE RECORDS SUMMARY | 2024-11-26 13:16 | XMS_ITS | Encounter Summary ---
Author Organization [employer] Address [address] [facility] 7t [place] [address] Care Team Providers Care Chlorine Plant Operator Name Role Phone Audrey Smith MD Primary Care Provide r Reason for Visit * Reason Comments Med Refill Encounter Details Date Type Department Care Team ([facility] st Contact Info) Description 10/22/2024 Refill [facility] MEDICINE [address] [place] [address] Audrey Smith MD [address] [place] [address] Diabetic polyneuropathy associated with type 2 diabetes [...] Description 12/10/2024 10:30 AM EDT Medication Management [facility] MED[facility]INE [address] [place] [address] 12/15/2024 9:15 AM EDT Office Visit [facility] MEDICINE [address] [place] [phone] Audrey Smith MD [address] [place] [phone] 05/05/2025 9:00 AM EDT Immunization [facility] MEDICINE [address] [place] [address] documented as of this encounter Visit Diagnoses Diagnosis Diabetic polyneuropathy associated with type 2 diabetes mellitus (CMS/HCC) documented in this encounter Additional Health Concerns Assessment Noted Time PHQ-9 Depression Total Score: 0 05/21/20 24 9:38 AM EDT documented as of this encounter Care Teams Chlorine Plant Operator Relationship Specialty Start Date End Date Audrey Smith MD [address] [place] [phone] PCP - General Family Medicine 11/20/17 documented as of this encounter
--- OUTSIDE RECORDS SUMMARY | 2024-11-26 13:16 | XMS_ITS | Encounter Summary ---
Author Organization [employer] Address 75 [facility] 7t [place] [address] Care Team Providers Care Change Management Coordinator Name Role Phone Audrey Smith MD Primary Care Provide r Encounter Details Date Type Department Care Team (Late st Contact Info) Description 08/30/2022 Orders Only [facility] MEDICINE [address] [place] [address] [phone] Vane Cervantes MD [address] [place] [address] [phone] Muscle spasm (Primary Dx) Social History Tobacco [...] Description 12/10/2024 10:30 AM EDT Medication Management [facility] MEDICINE [address] [place] [address] [phone] 12/15/2024 9:15 AM EDT Office Visit [facility] MEDICINE [address] [place] [address] [phone] Audrey Smith MD [address] [place] [address] [phone] 05/05/2025 9:00 AM EDT Immunization [facility] MEDICINE [address] [place] [phone] documented as of this encounter Visit Diagnoses Diagnosis Muscle spasm- Primary Spasm of muscle documented in this encounter Care Teams Change Management Coordinator Relationship Specialty Start Date End Date Audrey Smith MD [address] [place] [phone] PCP - General Family Medicine 11/20/17 documented as of this encounter
--- OUTSIDE RECORDS SUMMARY | 2024-11-26 13:16 | XMS_ITS | Clinical Summary ---
Author Organization [email or web address] Address [address] [facility] 7t [place] [address] Care Team Providers Care Stained Glass Painter Name Role Phone Audrey Smith MD Primary [...] MOUTH EVERYDAY AT NOON 023 Active Zenpep 5000-68018 units capsule delayed-release particles capsule Take 1 [...] complication, without long-term current use of insulin ([facility]) TEST BLOOD SUGAR TWICE DAILY 100 each Active Blood Glucose Monitoring Suppl (FreeStyle Lite) w/Device kitIndications:T ype 2 diabetes mellitus with hyperglycemia, without long-term current use of insulin ([facility]) 1 kit 2 times daily. 1 kit Active FREESTYLE LITE test stripIndications :Type 2 diabetes mellitus with hyperglycemia, without long-term current use of insulin ([facility]) TEST BLOOD SUGAR TWICE DAILY 50 strip 024 Active sertraline (Zoloft) 100 MG tablet TAKE 2 TABLETS BY MOUTH ONCE DAILY AT NOON 024 Active imipramine (Tofranil) 10 MG tablet Take 10 mg by mouth at bedtime. 024 Active LORazepam (Ativan) 2 MG tablet Take 2 mg by mouth at bedtime. 024 Active fexofenadine (Mila) 180 MG tablet TAKE 1 TABLET BY MOUTH EVERYDAY AT NOON Active famotidine (Pepcid) 40 MG tablet Take 40 mg by mouth 2 times daily. Active cyclobenzaprine (Flexeril) 5 MG tabletIndication s:Muscle spasm TAKE 1 TABLET BY MOUTH THREE TIMES DAILY 30 tablet 2 025 Active glipiZIDE XL (Glucotrol XL) 2.5 MG 24 hr tabletIndication s:Type 2 diabetes mellitus without complication, unspecified whether alf insulin use ([facility]) TAKE 1 TABLET BY MOUTH EVERYDAY AT NOON 90 tablet 1 025 Active empagliflozin (Jardiance) 10 MGIndications:Ty pe 2 diabetes mellitus with hyperglycemia, without long-term current use of insulin ([facility]) Take 1 tablet (10 mg) by mouth [...] every 3 (three) months. Administered at office ([facility]) Active metFORMIN (Glucophage) 1000 MG tablet TAKE 1 TABLET BY MOUTH TWICE DAILY AT NOON AND IN THE EVENING 180 tablet 1 025 Active clopidogrel (Plavix) 75 MG tabletIndication s:Coronary artery disease involving [place] coronary artery of [place] heart, unspecified whether angina present TAKE 1 TABLET BY MOUTH EVERYDAY AT NOON 90 tablet 1 025 Active aspirin (Aspirin Low Dose) 81 MG EC tabletIndication s:Coronary artery disease involving [place] coronary artery of [place] heart, unspecified whether angina present TAKE 1 TABLET BY MOUTH EVERYDAY AT NOON 90 tablet 1 025 Active cholecalciferol (D3-1000) 25 MCG (1000 UT) capsuleIndicatio ns:Vitamin D deficiency TAKE 1 CAPSULE BY MOUTH EVERYDAY AT NOON 90 capsule 1 025 Active levothyroxine (Synthroid, Levoxyl) 25 MCG tabletIndication s:Hypothyroidism , unspecified type TAKE 1 TABLET BY MOUTH EVERY MORNING BEFORE BREAKFAST 90 tablet 1 025 Active metoprolol succinate XL (Toprol-XL) 50 MG 24 hr tabletIndication s:Coronary artery disease involving [place] coronary artery of [place] heart, unspecified whether angina present TAKE 1 TABLET BY MOUTH EVERYDAY AT NOON 90 tablet 1 025 Active B-D 3CC LUER-CHRISTINE SYR 98WH7-5/2 21G X 1-2 3 ML misc USE [...] LUER-CHRISTINE 1CC 1 ML misc USE DIRECTED 2024 Discontinued( Med list cleanup (will not trigger notification to Pharmacy)) Easy Touch Hypodermic Needle 22G X 1-2 misc USE FOR INJECT testosterone 2024 Discontinued( Med list cleanup (will not trigger notification to Pharmacy)) BD Hypodermic Needle 18G X 1 misc USE WITH testosterone 2024 Discontinued( Med list cleanup (will not trigger notification to Pharmacy)) aspirin (Aspirin Low Dose) 81 MG EC tabletIndication s:Coronary artery disease involving [place] coronary artery of [place] heart, unspecified whether angina present TAKE 1 TABLET BY MOUTH EVERYDAY AT NOON 90 tablet 1 024 2024 Discontinued clopidogrel (Plavix) 75 MG tabletIndication s:Coronary artery disease involving [place] coronary artery of [place] heart, unspecified whether angina present TAKE 1 TABLET BY MOUTH EVERYDAY AT NOON 90 tablet 1 024 2024 Discontinued levothyroxine (Synthroid, Levoxyl) 25 MCG tabletIndication s:Hypothyroidism , unspecified type TAKE 1 TABLET BY MOUTH EVERY MORNING BEFORE A MEAL 90 tablet 1 024 2024 Discontinued metFORMIN (Glucophage) 1000 MG tablet TAKE 1 TABLET BY MOUTH TWICE DAILY AT NOON AND IN THE EVENING CF 180 tablet 1 024 2024 Discontinued metoprolol succinate XL (Toprol-XL) 50 MG 24 hr tabletIndication s:Coronary artery disease involving [place] coronary artery of [place] heart, unspecified whether angina present TAKE 1 TABLET BY MOUTH EVERYDAY AT NOON 90 tablet 1 024 2024 Discontinued cholecalciferol (D3-1000) 25 MCG (1000 UT) capsuleIndicatio ns:Vitamin D deficiency TAKE 1 TABLET BY MOUTH EVERYDAY AT NOON 90 capsule 1 024 2024 Discontinued gabapentin (Neurontin) 400 [...] of colon 11/20/2017 Hyperuricemia 11/20/2017 CAD in [place] artery 11/20/2017 Benign prostatic hyperplasia with nocturia [...] Encounters Date Type Department Care Team Description 11/22/2024 Refill [facility] [address] [place] [address] Audrey Smith MD Coronary artery disease involving [place] coronary artery of [place] heart, unspecified whether angina present; Vitamin D deficiency; Hypothyroidism, unspecified type 11/19/2024 Orders Only GENERIC EXTERNAL DATA DEPARTMENT Provider, Generic External Data 11/08/2024 Orders Only GENERIC EXTERNAL DATA DEPARTMENT Provider, Generic External Data 11/03/2024 9:05 AM EDT Nurse Only [facility] [address] [place] [address] Tori Templeton LPN Encounter for immunization (Primary Dx) 11/03/2024 Travel 11/02/2024 Orders Only [facility] [address] [place] [address] Audrey Smith MD 11/02/2024 Travel 11/01/2024 Refill [facility] [address] [place] [address] Audrey Smith MD Diabetic polyneuropathy associated with type 2 diabetes mellitus ([facility]) 11/01/2024 Refill [facility] [address] [place] [address] Audrey Smith MD Diabetic polyneuropathy associated with type 2 diabetes mellitus ([facility]) 10/26/2024 Telephone [facility] [address] [place] [address] Audrey Smith MD 10/22/2024 Refill [facility] [address] [place], [place] [phone] Audrey Smith MD Diabetic polyneuropathy associated with type 2 diabetes mellitus ([facility]) 10/01/2024 Population Health Risk Score [facility] (C3) Department [address] [phone] Provider, Population Health Generic 09/17/2024 10:00 AM EST Office Visit [facility] [address] [place] [address] Audrey Smith MD Essential hypertension (Primary Dx); Type 2 diabetes mellitus with hyperglycemia, without long-term current use of insulin ([facility]) 09/17/2024 Travel 09/15/2024 Orders Only GENERIC EXTERNAL DATA DEPARTMENT Provider, Generic External Data 09/03/2024 Patient Outreach [facility] [address] [place] [address] Audrey Smith MD Pre-visit Planning (SDOH screening [...] Description 12/10/2024 10:30 AM EDT Medication Management [address] [address] 12/15/2024 9:15 AM EDT Office Visit [address] [address] Audrey Smith MD [address] [place] [phone] 05/05/2025 9:00 AM EDT Immunization [address] [address] Health Maintenance Due Date Last Done Comments CT Colonography 1970 FIT DNA/Cologuard 1970 FIT 1970 FOBT 1970 Sigmoidoscopy 1970 Diabetes: Foot Exam 11/07/1979 Hepatitis C Screening 11/07/1987 Colonoscopy 05/22/2023 05/22/2021 Colorectal Cancer Screening 05/22/2023 Diabetes: Hemoglobin A1C 02/19/2025 025, 09/17/2024, 05/21/2024, Additional history exists Hepatitis A Vaccines (2 [...] Procedure Name Priority Date/Time Associated Diagnosis Comments ALPHA FETOPROTEIN, TUMOR MARKER Routine 11/19/2024 1:16 PM EDT COMPREHENSIVE METABOLIC PANEL Routine 11/19/2024 1:16 PM EDT HEMOGLOBIN A1C Routine 11/19/2024 1:16 PM EDT TESTOSTERONE, TOTAL, MALES (ADULT), IA Routine 11/08/2024 9:04 AM EDT PSA, TOTAL Routine 11/08/2024 9:04 AM EDT CBC Routine 11/08/2024 9:04 AM EDT VITAMIN B12/FOLATE, SERUM PANEL Routine 11/02/2024 3:33 PM EDT POCT GLYCATED HEMOGLOBIN, TOTAL Routine 09/17/2024 9:50 AM EST Type 2 diabetes mellitus with hyperglycemia, without long-term current use of insulin (CMS/HCC) POCT GLUCOSE Routine 09/17/2024 9:49 AM EST Type 2 diabetes mellitus with hyperglycemia, without long-term current use of insulin (CMS/HCC) TESTOSTERONE, TOTAL, MALES (ADULT), IA Routine 09/15/2024 [...] Relevant to Health Maintenance Results * (ABNORMAL) Alpha-Fetoprotein, Tumor Marker (11/19/2024 1:16 PM EDT) Alpha Fetoprotein 16.6(A) <6.1 ng/mL [facility] Comment:This test was perfor med using the Celina Coulterchemiluminescent method. Values obtained fromdifferent assay methods cannot be usedinterchangeably. AFP levels, regardless ofvalue, should not be interpreted as absoluteevidence of the presence or absence of disease.THIS TEST WAS PERFORMED AT:[employer] [place] [id number] LYNN MD 11/19/2024 1:16 PM EDT 11/19/2024 1:16 PM EDT us Generic External Data Provider LAB BLOOD ORDERAB LES Final Result Performing Organization Address [facility] Co de Phone Number [facility] [address] [place] [address] [phone] * (ABNORMAL) Hemoglobin A1c (11/19/2024 1:16 PM EDT) Hemoglobin A1c 7.7(H) <6.0 % [facility] Comment:Hemoglobin A1C Refer ence Range Adults: 4.8 - 6.0 % Non diabetic: < 6.0 % Goal: < 7.0 %Additional Action Suggested: > 8.0 %Note: Hemoglobin A1c results are invalid for patients with abnormal amounts of HbF. Blood transfusions may impact the HbA1c concentration in the patient sample. Estimated Average Glucose 174 mg/dL [facility] Comment:eAG = Estimated ave rage glucose which is %A1C expressed asaverage glucose, using the formula of the [id number] Glucose study (ADAG), Diabetes Care, Vol.31,#8,Feb. 2007 11/19/2024 1:16 PM EDT 11/19/2024 1:16 PM EDT us Generic External Data Provider LAB BLOOD ORDERAB LES Final Result Performing Organization Address [facility] de Phone Number [facility] [address] [place] [phone] * (ABNORMAL) Comprehensive Metabolic Panel (11/19/2024 1:16 PM EDT) Sodium 139 135 - 145 mmol/L [facility] Potassium 5.1 3.3 - 5.1 mmol/L [facility] Chloride 100 96 - 108 mmol/L [facility] Carbon Dioxide 32(H) 22 - 29 mmol/L [facility] Anion Gap 12 12 - 20 [facility] Urea Nitrogen (BUN) 10 9 - 16 mg/dL [facility] Creatinine, Serum 0.83 0.5 - 1.4 mg/dL [facility] Estimated Glomerular Filt Rate >60 [facility] Comment:Chronic Kidney Disea se: Estimated GFR < 60 mL/min/1.83d4Drgtzc Kidney Disease: Estimated GFR < 15 mL/min/1.73m2 Glucose 150(H) 60 - 115 mg/dL [facility] Calcium 9.9 8.4 - 10.2 mg/dL [facility] Bilirubin, Total 0.9 0.0 - 1.0 mg/dL [facility] Aspartate Amino Transferase 28 5 - 37 U/L [facility] Alanine Aminotransferase 42(H) 0 - 40 U/L [facility] Total Protein 6.9 6.5 - 8.0 g/dL [facility] Albumin Level 4.6 3.5 - 5.0 g/dL [facility] Alkaline Phosphatase 99 39 - 117 U/L [facility] 11/19/2024 1:16 PM EDT 11/19/2024 1:16 PM EDT us Generic External Data Provider LAB BLOOD ORDERAB LES Final Result [facility] [address] [place] [phone] * CBC (11/08/2024 9:04 AM EDT) White Blood Count 6.6 4.8 - 10.8 X10*3/uL [facility] Red Blood Count 5.59 4.60 - 5.80 X10*6/uL [facility] Hemoglobin 16.9 14.0 - 18.0 g/dl [facility] Hematocrit 50.6 42.0 - 52.0 % [facility] Mean Corpuscular Volume 90.5 80.0 - 98.0 fL [facility] Mean Corpuscular Hemoglobin 30.2 27.0 - 33.0 pg [facility] Mean Corpuscular HGB Conc 33.4 31.0 - 36.0 g/dl [facility] Red Cell Distribution Width 12.5 11.0 - 16.0 % [facility] Platelet Count 222 160 - 400 X10*3/uL [facility] Mean Platelet Volume 11.4 9.4 - 12.4 fL [facility] NRBC Pct Auto 0.0 0.0 - 0.2 /100WBC [facility] NRBC Abs Auto 0.000 0.0 - 0.012 X10*3/uL [facility] 11/08/2024 9:04 AM EDT 11/08/2024 9:04 AM EDT us Generic External Data Provider LAB BLOOD ORDERAB LES Final Result [facility] [address] [place] [phone] * Testosterone, Total, males (Adult), IA (11/08/2024 9:04 AM EDT) Only the most recent of2 resultswithin the time period is included. Testosterone, Total 457 250 - 1100 ng/dL [facility] Comment:For additional infor gunnar, please refer [email or web address](This link is being provided for informational/educational purposes only.)This test was developed and its analytical performancecharacteristics have been determined by [employer] [place], [place]. It hasnot been cleared or approved by the U.S. Food and DrugAdministration. This assay has been validated pursuantto the CLIA regulations and is used for clinicalpurposes.THIS TEST WAS PERFORMED AT:[employer]/[id number] [place] [id number] FU MD,PHD 11/08/2024 9:04 AM EDT 11/08/2024 9:04 AM EDT us Generic External Data Provider LAB BLOOD ORDERAB LES Final Result Performing Organization Address [facility] Co de Phone Number [facility] [address] [place] [phone] * PSA,Total (11/08/2024 9:04 AM EDT) Prostate Specific Antigen 0.67 <0.05 - 4.0 ng/mL [facility] Comment:PSA methodology: Lennox Bautista i ChemiluminescentMicroparticle Immunoassay (CMIA) 11/08/2024 9:04 AM EDT 11/08/2024 9:04 AM EDT us Generic External Data Provider LAB BLOOD ORDERAB LES Final Result Performing Organization Address [facility] Co de Phone Number [facility] [address] [place] [phone] * Vitamin B12 (Cobalamin) and Folate Panel, Serum (11/02/2024 3:33 PM EDT) Vitamin B12 256 200 - 900 pg/mL [facility] Comment:NORMAL 200-900 PG/ML INDETERMINATE 160-199 PG/ML DEFICIENT < 160 PG/ML Folate 12.4 > or = 4.0 ng/mL [facility] Comment:Reference Values:> o r = 4.0 ng/mL< 4.0 ng/mL suggests folate deficiency Methotrexate, aminopterin and folinic acid(leucovorin) are chemotherapeutic agents whose molecularstructures are similar to folate; therefore, the Architectfolate assay cannot be used for patients using these drugs. 11/02/2024 3:33 PM EDT 11/02/2024 4:10 PM EDT us Audrey Holman MD LAB BLOOD ORDERABLES Final Result Performing Organization Address [facility] Co de Phone Number [facility] [address] [place] [phone] * (ABNORMAL) POCT HGB A1C (09/17/2024 [...] PM EST 08/30/2024 1:14 PM EST Narrative [facility] - 08/31/2024 3:23 PM EST ----- ------- Name: Owen Montano ?Age/Sex: 53/M ? : 1970 Unit#: [id number] ?? Attend Dr: Francesca Leyva MD ?Re08/30/24 ?Status: DEP SDC ? Location: HO.SSS ?Disch: ? ----- ------- SPEC : [id number] ?RECD: 08/30/24-1313 ? STATUS: ??SOUT ? REQ NUM: [id number] ? JUAN FRANCISCO: 08/30/24-1243 ? SUBM DR: Francesca Leyva MD ? ENTERED: ??08/30/24-1329 ?SP TYPE: Surgical ? OTHR DR: Audrey [...] microscopic examination, 2 pieces in cassette [facility] Copies To: ?? Audrey Smith MD ?? [facility] ?? [address] ?? [place] [address] ?? [phone] ?? Francesca Leyva MD ?? [facility] ?? [address] ?? [place] ?? [phone] ----- ------- Signed (signature on file) Samantha Olson MD 08/31/24 1523 ? ----- ------- ? END OF REPORT ? us Generic External Data Provider LAB BLOOD ORDERAB LES Final Result [facility] [address] [place] [address] [phone] * (ABNORMAL) Glucose, Whole Blood (08/30/2024 11:15 AM EST) Glucose, Whole Blood 134(H) 60 - 115 mg/dL [facility] Comment:METER #: [id number] 08/30/2024 11:1 5 AM EST 08/30/2024 11:21 AM EST us Generic External Data Provider LAB BLOOD ORDERAB LES Final Result Performing Organization Address [facility] Co de Phone Number [facility] [address] [place] [phone] * (ABNORMAL) Lipid Panel, Standard (08/25/2024 7:10 AM EST) Triglycerides 181(H) <150 mg/dL [facility] Comment:Desirable Triglyceri de: less than 150 mg/dLBorderline High Triglyceride 150-199 mg/dLHigh Triglyceride: 200-499 mg/dLVery High Triglyceride: greater than or equal to 5OO mg/dL Cholesterol 142 <200 mg/dL [facility] Comment:Desirable Cholestero l: less than 200 mg/dLBorderline High Cholesterol: 200-239 mg/dLHigh Cholesterol: greater than 239 mg/dL LDL Cholesterol Calculated 68 <100 mg/dL [facility] Comment:Desirable LDL: less than 100 mg/dLNear Optimal/Above Optimal LDL: 110- 129 mg/dLBorderline High LDL: 130-159 mg/dLHigh LDL: 160-189 mg/dLVery High LDL: greater than or equal to 190 mg/dL HDL Cholesterol 38(L) >40 mg/dL [facility] Comment:Desirable HDL: great er than 40 mg/dL Note: This HDL assay may give artificially low results in patients with liver disease. 08/25/2024 7:10 AM EST 08/25/2024 7:10 AM EST us Generic External Data Provider LAB BLOOD ORDERAB LES Final Result Performing Organization Address City/[facility]/ZIP Co de Phone Number [facility] [address] [place] [phone] * Albumin, Random Urine W/Creatinine (06/02/2024 8:55 AM EST) Creatinine, Urine 107.27 mg/dL [facility] Microalbumin Urine <5.0 mg/L [facility] Microalbum Creatinine Ratio Ur TNP <30 ug/mg cr [facility] Comment:Unable to calculate albumin/creatinine ratio due to lowmicroalbumin or creatinine result. Urine (Urine, Random) 06/02/2024 8:55 AM EST 06/02/2024 10:47 AM EST Audrey Holman MD LAB URINE ORDERABLES Final Result Performing Organization Address [facility]/ZIP Co de Phone Number [facility] [address] [place] [phone] * Hm Colonoscopy (05/22/2021) Historical Provider [...] detection of this assay. ?? The [employer] HIV Ag/Ab Combo assay result and supplemental assay results should be interpreted in conjunction with the patient's clinical presentation, history and other laboratory results. ??If the results are inconsistent with clinical evidence, additional testing is suggested to confirm the result. 10/01/2019 10:2 8 AM EDT us Audrey Holman MD HISTORICAL/NON ORDERA BLE LABS Final Result Performing Organization Address [facility]/ZIP Co de Phone Number [facility] [address] from Last 3 Months or Most Recently Relevant to Health Maintenance Insurance [facility] C3 Care Teams Stained Glass Painter Relationship Specialty Start Date End Date Audrey Smith MD [address] [place] [phone] PCP - General Family Medicine 11/20/17
--- OUTSIDE RECORDS SUMMARY | 2024-11-26 13:16 | XMS_ITS | Encounter Summary ---
Author Organization [employer] Address [address] [facility] 7t [place] [address] Care Team Providers Care Public Information Director Name Role Phone Audrey Smith MD Primary Care Provide r Reason for Visit * Reason Comments Med Refill Encounter Details Date Type Department Care Team ([facility] st Contact Info) Description 11/01/2024 Refill [facility] [address] [place] [address] Audrey Smith MD [address] [place] [address] Diabetic polyneuropathy associated with type 2 diabetes [...] Medication Management [facility] [address] [place] [phone] 12/15/2024 9:15 AM EDT Office Visit [facility] [address] [place] [phone] Audrey Smith MD [address] [place] [phone] 05/05/2025 9:00 AM EDT Immunization [facility] [address] [place] [phone] documented as of this encounter Visit Diagnoses Diagnosis Diabetic polyneuropathy associated with type 2 diabetes mellitus (CMS/HCC) documented in this encounter Additional Health Concerns Assessment Noted Time PHQ-9 Depression Total Score: 0 05/21/20 24 9:38 AM EDT documented as of this encounter Care Teams Public Information Director Relationship Specialty Start Date End Date Audrey Smith MD [address] [place] [phone] PCP - General Family Medicine 11/20/17 documented as of this encounter
--- NOTE | 2024-11-26 14:00 | MHC.OFFVIS ---
Intake Visit Reasons: 12 week follow up/ testopel Intake Note: Patient is present for 12W/TESTOPEL Urology Medication: TAMSULOSIN,OXYBUTYNIN,TESTOSTERONE Antibiotic Allergy:NONE Blood Thinner:ASPIRIN Information Security Manager Required: No Allergies No Known Allergies [No Known Allergies*] Allergy (Verified 11/26/24 14:05) HPI Comments Details: Owen is Gambian-speaking male. He is a patient of Dr. Holman. He is seen for the following urologic conditions - hypogonadism - bladder outlet obstruction Gambian translation provided by qualified medical imaging director Here for testosterone pellet insertion insertion #2 Reviewed lab work Good response Right side today Testosterone Initial [phone] Has had difficulties injecting the correct amount of testosterone due to needle phobia Also had highly variable hematocrit Previously failed T gel secondary to absorption issues Instructed to repeat lab work at 2 weeks and 10 weeks with follow-up testosterone pellets at 12 weeks He has had difficulty with injecting the correct amount and has to have his partner give the shots since he is scared of needles Given peak and trough with injections every 2 weeks and high hematocrit would recommend trying testopel Hypogonadism Longstanding Testosterone replacement started in [place] Continues with 1.0 cc 200 milligram/mL injection every 2 weeks - injection day Friday - laboratory day Friday - knows to do labs mid cycle Laboratories - 05/10 T 604, PSA 0.7, Hct 47.5, 11/09 T 1171 0.8 53, 05/11 T 1012 52, 11/10 T 388 H52, 05/11 T 890 P 0.8., 11/11 T 1200 Hct 53, 05/13 1061 295 51 Bladder outlet obstruction Initial weakness of stream and incomplete emptying Good response to tamsulosin with oxybutynin Controls nocturia [facility] Medical History (Updated 11/19/24 @ 12:17 by JORDAN Corey) COVID-19 Hypogonadism Nocturnal hypoxemia SARTHAK (obstructive sleep apnea) Hypogonadism in male On beta catherine at home Hypothyroid IBS (irritable bowel syndrome) BPH (benign prostatic hyperplasia) Anxiety Allergic rhinitis COLON (nonalcoholic steatohepatitis) Elevated AFP Decreased libido Type 2 diabetes mellitus with unspecified complications Other and unspecified hyperlipidemia Essential hypertension Atherosclerotic cardiovascular disease Hypogonadism in male Surgical History History of esophagogastroduodenoscopy (EGD) Hx of colonoscopy History of cardiac cath History of cardiac cath Family History Father Cardiac disease Mother Cardiac disease Social History Are you a primary critical care paramedic to a significant other at home: No Do you presently have visiting nurse or other home services: No Alcohol intake: former Patient Tobacco Use Status: Former Tobacco user Tobacco use type: Cigarette Office Procedures AMB Testopel Details: CPT 76681 Subcutaneous hormone pellet implantation (implantation of testosterone pellets beneath the skin) 6 pellets 75mg Patient in lateral jackknife - right side up The implantation area is the upper outer quadrant of the hip Cleanse the area with Betadine? swabs Place fenestrated drape over the patient, revealing the implantation area. Erwin anticipated trocar tract Create a skin wheal for scalpel insertion with local anesthetic Inject local anesthetic (lidocaine HCl 2% 10cc) to begin hydrodissection in subcutaneous fat layer. Complete hydrodissection of subcutaneous fat layer, and be sure to numb entire length of trocar tract Insert the scalpel straight down and to the plastic tip Insert trocar with sharp-ended stylet. Enter downward at a 45? angle and into the subcutaneous fat layer, flatten out the trocar, stopping to leave only the trocar well exposed. Forceps used to load pellets. Blunt stylet used to advance pellets in a V pattern with 3 pellets in each load. Once completed area cleansed with alcohol wipes Incision sealed using Steri-Strips? for closure. Area covered with a 2 x2 gauze, folded in half and secured by Tegaderm? Subcutaneous Hormone Pellet Insertion: 00986 Subq Hormone Pellet Insertion Office Meds Testopel 75 mg implant pellet Performing Provider: Eliezer Rivas MD Performing Location: [facility] [place] [facility] Administered by: Eliezer Rivas MD on 11/26/24 14:44 Dose Route Admin Location Dispensed Lot Number Expiration Date NDC Superintendent Local 75 mg implant 6 ea naproxen 500 mg tablet Performing Provider: Eliezer Rivas MD Performing Location: [facility] [place] [facility] Documented (not given) by: Eliezer Rivas MD on 11/26/24 14:44 Dose Route Admin Location Dispensed Lot Number Expiration Date NDC Superintendent Local 500 mg PO tab Assessment & Plan Assessment & Plan (1) Decreased libido: Code(s): R68.82 - Decreased libido Category: Medical (2) Hypogonadism in male: Code(s): E29.1 - Testicular hypofunction Category: Medical Plan Lab work, 12 week follow-up repeat pellet Orders: Orders Testosterone, Total 10 Weeks R68.82 - Decreased libido AMB Testosterone Pellet Implant Today E29.1 - Testicular hypofunction Testosterone, Total 2 Weeks R68.82 - Decreased libido Medications: New testosterone (Testopel) 450 mg implant ONCE 1 ea 0RF testosterone (Testopel) 6 pellets every 12 weeks 75 mg implant .every 12 weeks 6 ea 2RF hypogonadism Testopel (testosterone) 75 mg implant ONCE 1 ea 0RF NS E29.1 - Testicular hypofunction naproxen 500 mg PO ONCE 1 tab 0RF E29.1 - Testicular hypofunction Patient Instructions: This note is constructed using voice recognition software. While every effort has been made to ensure accuracy application support intern errors may have been included. Imaging studies, laboratory and physical exam results were discussed and reviewed in detail. No major barriers to patient understanding were identified. An opportunity to ask questions regarding the treatment plan was provided. All questions were answered. The patient expressed understanding and agreement with the above treatment plan. The patient is aware they should contact our office by phone for worsening of their current condition or the appearance of new urologic symptoms. Compliance is encouraged with any medications and followup testing that is ordered. It is a privilege to participate in the urologic care of your patient. If you have any questions or concerns regarding treatment for the above conditions, or other urologic issues, please do not hesitate to contact me. The office telephone contact is [phone]. Sincerely, Dr Eliezer Rivas MD, [facility] - Urology Compassionate Specialist Care for the Genitourinary System Coding Level of Care Code Est Pt Level 3 (57894) Complex EM visit Add On G2211 Diagnoses Decreased libido R68.82 Hypogonadism in male E29.1
== END 2024-11-26 14:50 | disposition home or self-care (01) ==
LOC: HO.HUSH 13:13
PROVIDERS: PCP Internal Medicine; Visit Provider Urology
DX: R68.82 Decreased libido (principal); E29.1 Testicular hypofunction
CPT/HCPCS: 11980; 99213

== ENCOUNTER → 2024-11-26 13:12 | Outpatient (BNVA) | payer MEDICAID, SELFPAY | PROVIDERS: PCP Internal Medicine; Visit Provider Urology | DX: E29.1 Testicular hypofunction (principal); R68.82 Decreased libido | CPT/HCPCS: 11980; 99212; J3490 ==

== ENCOUNTER 2024-11-26 18:09 | Emergency (ER) | payer MEDICAID, SELFPAY ==
--- NOTE | 2024-11-26 18:19 | ED_ITS ---
HPI - General Adult General Chief complaint: Wound/Laceration Stated complaint: uncontrollable bleeding from incision site Time Seen by Provider: 11/26/24 18:49 Source: patient and family ( ) Mode of arrival: ambulatory Limitations: language barrier (amharic speaking) History of Present Illness ED Provider: Hugo Galeano NP HPI narrative: 54 yo male with PMHx of T2DM, GERD, HTN, CAD w/ 3 stents on plavix, hypogonadism s/p 6 testosterone pellet insertions today by Dr. Rivas presents to the ED due to bleeding at the insertion site. Patient states he had 6 testosterone pellets inserted above at the site of the right trochanter today at 2pm by Dr. Rivas. He states the bleeding cannot be controlled MD complaint: bleeding at insertion site Related Data Home Medications ?Medication ?Instructions ?Recorded ?Confirmed aspirin 81 mg tablet,delayed 81 mg PO DAILY 07/19/20 08/26/24 release (Adult Low Dose Aspirin) cholecalciferol (vitamin D3) 25 25 mcg PO DAILY 07/19/20 08/26/24 mcg (1,000 unit) capsule clopidogrel 75 mg tablet 75 mg PO DAILY 07/19/20 08/26/24 glipizide 2.5 mg tablet, extended 2.5 mg PO DAILY 07/19/20 08/26/24 release 24 hr metformin 1,000 mg tablet 1,000 mg PO BID 07/19/20 08/26/24 metoprolol succinate 50 mg 50 mg PO DAILY 07/19/20 08/26/24 tablet,extended release 24 hr risperidone 4 mg tablet 4 mg PO BEDTIME 07/19/20 08/26/24 sertraline 100 mg tablet 100 mg PO DAILY 07/19/20 08/26/24 lorazepam 2 mg tablet 2 mg PO DAILY PRN Anxiety 05/11/21 08/26/24 hydroxyzine HCl 50 mg tablet 1 tab PO BEDTIME PRN anxiety 05/16/21 08/26/24 blood sugar diagnostic (FreeStyle #10 ea 11/13/21 05/20/24 Lite Strips) canagliflozin 100 mg tablet 100 mg PO DAILY 11/13/21 08/26/24 (Invokana) gabapentin 400 mg capsule 400 mg PO TID 11/13/21 08/26/24 lancets 33 gauge (TRUEplus Lancets) #100 ea 11/13/21 05/20/24 levothyroxine 25 mcg tablet 25 mcg PO QAM 11/13/21 08/26/24 blood-glucose meter (FreeStyle #1 ea 05/09/22 05/20/24 [place] Lite kit) lidocaine 5 % topical patch 1 patch topical DAILY PRN Pain 12/13/22 08/26/24 (Lidoderm) cyclobenzaprine 5 mg tablet 5 mg PO TID 03/26/24 08/26/24 sertraline 50 mg tablet 50 mg PO DAILY 03/26/24 08/26/24 Previous Rx's ?Medication ?Instructions ?Recorded needle (disp) 18 G 18 gauge x 1 #30 ea 11/21/23 (BD Regular Bevel [place]) needle (disp) 22 G 22 gauge x 1 #30 ea 11/21/232 syringe (disposable) 1 mL #60 ea 11/21/23 (Monoject TB Luer Judy) rosuvastatin 20 mg tablet 20 mg PO BEDTIME #90 tabs 02/19/24 nitroglycerin 0.4 mg sublingual 0.4 mg sublingual Q5M PRN Chest 02/23/24 tablet Pain #25 tabs testosterone cypionate 200 mg/mL 140 mg (0.7 mL) IM Q2W 28 days #2 05/25/24 intramuscular oil mL promethazine 25 mg tablet 25 mg PO Q12H PRN for 06/02/24 nausea/vomiting #60 tabs loperamide 2 mg capsule 2 mg PO BID PRN for diarrhea #60 06/15/24 caps oxybutynin chloride 5 mg 5 mg PO DAILY 90 days #90 tabs 07/05/24 tablet,extended release 24 hr alirocumab 75 mg/mL subcutaneous 75 mg subcut Q2W #2 mL 07/26/24 pen injector (Praluent Pen) dicyclomine 20 mg tablet 20 mg PO QID PRN for cramps #120 11/18/24 tabs famotidine 40 mg tablet 40 mg PO BID #60 tabs 11/19/24 fexofenadine 180 mg tablet 180 mg PO DAILY #30 ea 11/19/24 (Allergy Relief (fexofenadine)) hydrocortisone 2.5 % topical cream 1 ea [place] BID PRN for pain #28 grams 11/19/24 with perineal applicator (Procto-Med HC) imipramine HCl 10 mg tablet 10 mg PO BEDTIME #30 tabs 11/19/24 ulzrho-olpsrrff-asegwwb 1 cap PO QID #120 caps 11/19/24 5,000-17,000-24,000 unit capsule, delayed rel (Zenpep) tamsulosin 0.4 mg capsule 0.4 mg PO BEDTIME 90 days #90 caps 11/22/24 testosterone 75 mg implant pellet 75 mg implant .every 12 weeks 11/26/24 (Testopel) hypogonadism #6 ea testosterone 75 mg implant pellet 450 mg implant ONCE #1 ea 11/26/24 (Testopel) Allergies Allergy/AdvReac Type Severity Reaction Status Date / Time No Known Allergies Allergy Verified 11/26/24 18:27 [No Known Allergies*] Review of Systems Review of Systems: Yes all other systems are reviewed and are negative [facility] Past Medical History Attestation statement: The following information was validated with the patient. Source: old records reviewed Medical History COVID-19 Hypogonadism Nocturnal hypoxemia SARTHAK (obstructive sleep apnea) Hypogonadism in male On beta catherine at home Hypothyroid IBS (irritable bowel syndrome) BPH (benign prostatic hyperplasia) Anxiety Allergic rhinitis COLON (nonalcoholic steatohepatitis) Elevated AFP Decreased libido Type 2 diabetes mellitus with unspecified complications Other and unspecified hyperlipidemia Essential hypertension Atherosclerotic cardiovascular disease Hypogonadism in male Surgical History History of esophagogastroduodenoscopy (EGD) Hx of colonoscopy History of cardiac cath History of cardiac cath Family History Family History Father Cardiac disease Mother Cardiac disease Social History Social History Are you a primary post acute care nurse practitioner to a significant other at home: No Do you presently have visiting nurse or other home services: No Alcohol intake: former Patient Tobacco Use Status: Former Tobacco user Tobacco use type: Cigarette Advance Directives: No Advance Directives Information Provided: No Physical Exam ED Vital Signs: Vital Signs - 24 hr 11/26/24 18:24 Temperature 98.3 F Pulse Rate 65 Respiratory Rate 18 Blood Pressure 113/72 Pulse Oximetry 97 Oxygen Delivery Method Room Air BMI result Body Mass Index 26.9 Appearance: Alert.?Oriented to person, place and time. No acute distress.?Normal affect. CVS: Heart sounds normal. Normal heart rate and rhythm.? Pulses normal.?? Respiratory: No respiratory distress.? Lung sounds clear to auscultation bilaterally?? Skin: Skin warm and dry.? Normal skin color.? blood saturated gauze located at the right gluteus covered with Tegaderm, upon removal, Steri-Strips are intact, no active bleeding Extremities: No lower extremity edema.? Neuro: Moves all extremities spontaneously. Sensation intact bilaterally. Ambulates with normal steady gait. Medical Decision Making Medical Decision Making MDM Narrative: patient is a 54-year-old male who presents emergency department for evaluation with concern for bleeding to the testosterone pellet insertion site as per HPI, on Plavix. On evaluation, he is found to have blood saturated gauze with a Tegaderm covering it to the right gluteus, upon removal Steri-Strips are intact and there was no active bleeding. He expresses concern that the bleeding will return to the dressing the removed. We applied a gauze with Tegaderm over the Steri-Strips, followed by mild pressure dressing with elastic bandage around the hip/ pelvis advised removal in 24 hours. Strict return precautions were discussed, she had return of bleeding occur he should consult with Urology additionally, and advised of worrisome signs and symptoms that would warrant re- evaluation in the emergency department. All questions answered. He is otherwise asymptomatic at this time, vital signs are stable no tachycardia or hypotension, stable for discharge. Ambulatory with steady gait Differential Diagnosis Differential Diagnoses: The differential diagnosis associated with the presentation includes ( insertion site bleed, hematoma, uncontrolled bleeding,) Independent Historian Clinical information obtained from an independent historian. History obtained from or confirmed by: Spouse External Record Review External record reviewed: Outpatient record Chronic Conditions Patient?s care impacted by: Other ( see PMFSH section) Discharge Plan Discharge Clinical Impression: Bleeding at insertion site Patient Disposition: Home, Self-Care Additional Instructions: you were evaluated in the emergency department for bleeding at the testosterone pellet insertion site. The initial pressure dressing and gauze was removed. The Steri-Strips are intact. There did not appear to be significant bleeding afterwards. a gauze and Tegaderm was replaced, An elastic bandage was wrapped around the hips, please leave this on for 24 hours, then you may remove. If you have return of bleeding please call urology office, you may speak with on- call provider. If the bleeding seems excessive you may return back to emergency department, additionally if you experience dizziness, lightheadedness, vision changes, palpitations, etc please return for evaluation Prescriptions: No Action rosuvastatin 20 mg tablet 20 mg PO BEDTIME Qty: 90 3RF nitroglycerin 0.4 mg tablet, sublingual 0.4 mg sublingual Q5M PRN (Reason: Chest Pain) Qty: 25 2RF Rx Instructions: do not exceed 3 doses per episode testosterone cypionate 200 mg/mL oil 140 mg IM Q2W 28 Days Qty: 2 5RF promethazine 25 mg tablet 25 mg PO Q12H PRN (Reason: for nausea/vomiting) Qty: 60 6RF loperamide 2 mg capsule 2 mg PO BID PRN (Reason: for diarrhea) Qty: 60 6RF oxybutynin chloride 5 mg tablet extended release 24hr 5 mg PO DAILY 90 Days Qty: 90 3RF Praluent Pen 75 mg/mL pen injector 75 mg subcut Q2W Qty: 2 5RF Rx Instructions: LOWELL [id number] APPROVED Exp:08/01/2024 dicyclomine 20 mg tablet 20 mg PO QID PRN (Reason: for cramps) Qty: 120 3RF tamsulosin 0.4 mg capsule 0.4 mg PO BEDTIME 90 Days Qty: 90 1RF hydroxyzine HCl 50 mg tablet 1 tab PO BEDTIME PRN (Reason: anxiety) lorazepam 2 mg tablet 2 mg PO DAILY PRN (Reason: Anxiety) aspirin [Adult Low Dose Aspirin] 81 mg tablet,delayed release (DR/EC) 81 mg PO DAILY clopidogrel 75 mg tablet 75 mg PO DAILY glipizide 2.5 mg tablet extended release 24hr 2.5 mg PO DAILY metformin 1,000 mg tablet 1,000 mg PO BID metoprolol succinate 50 mg tablet extended release 24 hr 50 mg PO DAILY sertraline 100 mg tablet 100 mg PO DAILY Rx Instructions: 2 tablets cholecalciferol (vitamin D3) 25 mcg (1,000 unit) capsule 25 mcg PO DAILY risperidone 4 mg tablet 4 mg PO BEDTIME Invokana 100 mg tablet 100 mg PO DAILY (DME) lancets [TRUEplus Lancets] 33 gauge misc See Rx Instructions Not Applicable BID Qty: 100 Rx Instructions: As directed levothyroxine 25 mcg tablet 25 mcg PO QAM gabapentin 400 mg capsule 400 mg PO TID (DME) FreeStyle Lite Strips Strip See Rx Instructions Not Applicable BID Qty: 10 Rx Instructions: As directed lidocaine [Lidoderm] 5 % adhesive patch,medicated 1 patch topical DAILY PRN (Reason: Pain) (DME) blood-glucose meter [FreeStyle [place] Lite] Kit See Rx Instructions .ROUTE BID Qty: 1 Rx Instructions: As directed (DME) Monoject TB Luer Judy 1 mL syringe See Rx Instructions .ROUTE .MEDSUPPLY Qty: 60 0RF Rx Instructions: As directed - use 18 needle to draw up testosterone and 22 to inject (DME) needle (disp) 18 G [BD Regular Bevel [place]] 18 gauge x 1 needle See Rx Instructions .ROUTE .MEDSUPPLY Qty: 30 0RF Rx Instructions: As directed - draw up testosterone (DME) needle (disp) 22 G 22 gauge x 1 1/2 needle See Rx Instructions .ROUTE .MEDSUPPLY Qty: 30 0RF Rx Instructions: To inject Testosterone cyclobenzaprine 5 mg tablet 5 mg PO TID sertraline 50 mg tablet 50 mg PO DAILY Zenpep 5,000-17,000- 24,000 unit capsule,delayed release(DR/EC) 1 cap PO QID Qty: 120 6RF imipramine HCl 10 mg tablet 10 mg PO BEDTIME Qty: 30 6RF hydrocortisone [Procto-Med HC] 2.5 % cream with perineal applicator 1 ea [place] BID PRN (Reason: for pain) Qty: 28 6RF famotidine 40 mg tablet 40 mg PO BID Qty: 60 6RF fexofenadine [Allergy Relief (fexofenadine)] 180 mg tablet 180 mg PO DAILY Qty: 30 6RF Testopel 75 mg pellet 450 mg implant ONCE Qty: 1 0RF Testopel 75 mg pellet 75 mg implant .every 12 weeks Qty: 6 2RF Rx Instructions: 6 pellets every 12 weeks naproxen 500 mg tablet 500 mg PO ONCE Qty: 1 0RF Referrals: Eliezer Rivas MD [Physician] - Interventions: ED Discharge Assessment Last Done: 11/26/24 19:24 Print Language: Hong Konger
[2024-11-26 18:24] VITALS: BP 113/72; PULSE 65; RESP 18; TEMP 36.8; O2SAT 97; BMI 26.9
--- NOTE | 2024-11-26 18:54 | PC.NURSE ---
bleeding has slowed. dressing taken down to the steri strips and redressed with MARILEE wrap around hips/buttocks.
[2024-11-26 19:24] VITALS: BP 113/72; PULSE 65; RESP 18; TEMP 36.8; O2SAT 97
== END 2024-11-26 19:24 | disposition home or self-care (01) ==
PROVIDERS: Emergency Provider Emergency Medicine; PCP Internal Medicine
DX: L76.22 Postprocedural hemorrhage of skin and subcutaneous tissue following other procedure (principal)
CPT/HCPCS: 99282

== ENCOUNTER 2024-12-10 07:48 | Outpatient (REF) | payer MEDICAID, SELFPAY ==
--- OUTSIDE RECORDS SUMMARY | 2024-12-10 07:52 | XMS_ITS | Clinical Summary ---
Author Organization [facility] Address [address] [place] [address] Phone Care Team Providers Care Staffing Clerk Name Role Phone Audrey Smith MD [...] not requiring any pain medication. Sarbjit from [employer] is here as well to go over [...] pain med refills today. We used [employer] service plumber Leeanna #[phone], Morgan #[phone]. Chronic pain syndrome 09/21/2024 Diabetic neuropathy, painful ([facility] V24, CMS/H CC V28) 09/14/2024 Assessment & Plan (09/14/2024 4:44 PM EST): I reviewed the steps involved in placement of the spinal cord stimulator leads and generator with the patient in conjunction with Sarbjit the patient access representative from [employer] and a sugar controller. I demonstrated the position of each incision [...] of insulin ([facility] V24, [facility] V28) 12/04/2022 Stented coronary artery 11/20/2017 Essential hypertension 11/20/2017 Anxiety 11/20/2017 Acquired hypothyroidism 11/20/2017 Encounters Date Type Department Care Team Description 11/01/2024 9:15 AM EDT Office Visit Orthopedic Surgery [facility] [address] [facility] [address] [place] [phone] Aaron Graves, DPM Diabetic mononeuropathy simplex ([facility] V24, [facility] V28) (Primary Dx); Primary osteoarthritis of both feet 10/19/2024 10:25 AM EDT - 10/19/2024 11:59 PM EDT Hospital Encounter Xray [address] [place] [phone] S/P insertion of spinal cord stimulator Discharge Disposition: Home or Self Care 10/15/2024 2:15 PM EDT Office Visit Neurosurgery [facility] [address] [phone] Adali Hogue PA S/P insertion of spinal cord stimulator (Primary Dx) 10/04/2024 10:35 AM EDT Anesthesia Event Main OR [address] [place] [phone] Erwin Pelletier MD Claudio, Raymund, CRNA 10/04/2024 10:30 AM EDT - 10/04/2024 12:00 PM EDT Surgery Main OR [address] [place] [phone] Cara Davenport MD placement of spinal cord stim(left) including leads on to be done with Dr. Parsons [51099 (CPT??) +1 more] 10/04/2024 8:28 AM EDT - 10/04/2024 3:49 PM EDT Hospital Encounter Main OR [address] [place] [phone] Cara Davenport MD Discharge Disposition: Home or Self Care 10/04/2024 7:05 AM EDT - 10/04/2024 11:59 PM EDT Hospital Encounter Xray [address] [place] [phone] Pain Discharge Disposition: Home or Self Care 09/14/2024 3:15 PM EST Office Visit Neurosurgery [facility] [address] [phone] Cara Davenport MD Diabetic neuropathy, painful (CMS/HCC V24, CMS/HCC V28) (Primary Dx) from Last 3 Months Immunizations Name Administration Dates Next Due COVID-19 (Moderna/Spikevax) 12yo and older 07/10/2022 Hepatitis B (Nkptzeh-V-Rqxdv , Recombivax HB-Adult) 19yo and older 12/07/2020,01/25/2019,12/25/2018 [...] IMPLANT 10/04/2024 Dr. Davenport and Dr. Parsons, [facility] Medical History Medical History Date Comments Diabetes mellitus ([facility] V24, [facility] V28) Hypertension Disease of thyroid gland Hypercholesteremia [...] AM EDT Office Visit Orthopedic Surgery - [place] [address] [phone] Aaron Graves, DPM [address] [address] Health Maintenance Due Date Last Done Comments Diabetes: Annual Foot Exam 11/07/1979 Diabetes: Annual Retina Eye Exam 11/07/1979 Colorectal Cancer Screening: Colonoscopy 08/15/2023 HIV Screening 08/15/2023 Hepatitis C Screening 08/15/2023 Social Influencers of Health Screening 08/15/2023 Diabetes: Annual Urine Albumin-Creatinine Ratio (uACR) 04/29/2024 Depression Screening 05/21/2025 05/21/2024 Diabetes: Blood Sugar Control Test (HGBA1C) 05/22/2025 11/19/2024, 09/17/2024, 05/21/2024 Diabetes: Annual GFR (Glomerular Filtration Rate) 11/19/2025 11/19/2024, 06/02/2024 Hypertension/CHF/CAD Annual BMP Blood Test 11/19/2025 11/19/2024, 06/02/2024 DTaP,Tdap,and Td Vaccines (2 - Td [...] Completed 05/21/2024, , 04/18/2022, Additional history exists Hepatitis A Vaccines Aged Out 11/03/2024 No long er eligible based on patient's age to complete this topic HIB Vaccines Aged Out No longer eligi [...] this topic Medical Devices Implanted Type Area Wood Floor Layer Device Identifier Shelf Expiration Date Model / Serial / Lot Lead Linear Trial St - [id number] - [id number] Implanted:Qty : 1 on 08/24/2024 by Rock Parsons MD at [facility] Neurostim Right: Back [employer] 03/23/2026 [id number] / [id number] / [id number] Lead Linear Trial St - [id number] - [id number] Implanted:Qty : 1 on 08/24/2024 by Rock Parsons MD at [facility] Neurostim Left: Back [employer] 03/15/2026 [id number] / [id number] / [id number] Generator Implant Pulse Ww Alpha - [id number] - [id number] Implanted:Qty : 1 on 10/04/2024 by Cara Davenport MD at [facility] Neuro[employer] Left: Back [employer] [id number] 06/22/2026 [id number] / [id number] / [id number] Powder Surgifoam Absorb Gel - Sna - [id number] Implanted:Qty : 1 on 10/04/2024 by Cara Davenport MD at [facility] [employer] Left: Back [employer] [id number] 06/28/20261977 / [id number] / [id number] Linearv Contact Lead Set Implanted:Qty : 1 on 10/04/2024 by Cara Davenport MD at [facility] Left: Back [employer] 08/13/2026 [id number] / [id number] / [id number] Linear Contact Lead Kit Implanted:Qty : 1 on 10/04/2024 by Cara Davenport MD at [facility] Left: Back [employer] 08/13/2026 [id number] / [id number] / [id number] Procedures Procedure Name Priority Date/Time Associated [...] AM EDT Chronic pain syndrome Case Notes [employer] spinal cord stim PA IMPLANTATION NEUROSTIMULATOR ELECTRODE ARRAY EPIDURAL PERCUTANEOUS 10/04/2024 10:40 AM EDT Chronic pain syndrome Case Notes [employer] spinal cord stim POCT GLUCOSE BLOOD [...] Signed Date: 10/19/2024 13:39 ET Workstation ID: [id number] Transcribed By: Self Edit Transcribed Date: 10/19/2024 [...] leads appear to be terminating at the H73tsfwh. The leads appear intact. I cannot confirm integrity of the L5 pars interarticulares. Bilateral H5fnuamhqslsuwv may be present. IMPRESSION: There are 2 leads projecting in the lower spinal canal. They terminateposterior to the T12 and L1 levels. On 10/04/24 both appear to terminate atthe T12 level. -------- FINAL REPORT -------- Dictated By: Horace Morales Dictated Date: 10/19/2024 13:35 ET Assigned Physician: Horace Morales Reviewed and Electronically Signed By: Horace Morales Signed Date: 10/19/2024 13:39 ET Workstation ID: [id number] Transcribed By: Self Edit Transcribed Date: 10/19/2024 13:35 ET us Adali ETIENNE IMG XR PROCEDURES Final Re sult * (ABNORMAL) POCT Glucose, blood (10/04/2024 1:33 PM EDT) Only the most recent of2 resultswithin the time period is included. Glucose POCT 213(H) 70 - 100 mg/dL 10/04/2024 1:34 PM EDT [facility] Blood Capillary blood specimen / Unknown 10/04/2024 1:33 PM EDT 10/04/2024 1:35 PM EDT us Cara Davenport MD LAB POINT OF CARE TE ST DOCKED DEVICE UNSOLICITED RESULTS Final Result [facility] [address] [place] [address], [place] [phone] * TH AN ENDOTRACHEAL(NO CHARGE) (10/04/2024 11:20 [...] mask + OA or adjuvant +/- NMBA Erwin Pelletier MD ANESTHESIA ORDERABLES Final Re [...] currently active code status orders. Care Teams Staffing Clerk Relationship Specialty Start Date End Date Audrey Smith MD [address] [place] [phone] PCP - General 07/01/23
[2024-12-15 17:03] LABS: Testosterone, Total 783 ng/dL (250-1100)
== END 2024-12-10 07:49 | disposition home or self-care (01) ==
LOC: HO.LAB 07:48
PROVIDERS: PCP Internal Medicine; Visit Provider Urology
DX: R68.82 Decreased libido (principal)
CPT/HCPCS: 36415; 84403

== ENCOUNTER 2025-01-04 07:34 | Outpatient (REF) | payer MEDICAID, SELFPAY ==
--- NOTE | ~2025-01-04 | US_ITS ---
EXAMINATION: US ABDOMEN COMPLETE CLINICAL INFORMATION: Nonalcoholic steatohepatitis.. COMPARISON: August 12, 2022. Correlated to CT dated February 21, 2023. TECHNIQUE: Real-time ultrasound of the abdomen using grayscale and color technique. FINDINGS: PANCREAS: No peripancreatic fluid collections. ABDOMINAL AORTA: The proximal, mid, and distal segments are normal in caliber. INFERIOR VENA CAVA: Visualized portions are normal. LIVER: Liver measures 17 cm. Increased echotexture. No gross solid or cystic lesion detected by the technologist. No gross nodular surface. No intrahepatic biliary ductal dilatation. GALLBLADDER: Fluid-filled. No pericholecystic fluid collection or gallbladder wall thickening. COMMON BILE DUCT: 3 mm. RIGHT KIDNEY: 10 cm. Normal echotexture. No gross hydronephrosis. No gross solid or cystic lesion detected by the technologist. . LEFT KIDNEY: 11 cm. Normal echotexture. No hydronephrosis. No gross solid or cystic lesion detected by the technologist. SPLEEN: 11 cm. No focal lesion. FREE FLUID: None. US/US abdomen complete IMPRESSION: Hepatomegaly, mild. Hepatic steatosis. No cholelithiasis. No hydronephrosis. No ascites. Electronically signed by: Rafal Curran MD 01/04/2025 08:31 AM EDT
--- OUTSIDE RECORDS SUMMARY | 2025-01-04 07:36 | XMS_ITS | Encounter Summary ---
Author Organization [employer] Address [address] [facility] [address] [place] [address] Care Team Providers Care Clam Grader Name Role Phone Audrey Smith MD Primary Care Provide r Rao Mcdowell RN Unavailable [phone] Piedad Tolliver Unavailable Encounter Details Date Type Department Care Team (Late st Contact Info) Description 03/27/[address] [facility] [address] [place] [phone] ProviderNatasha MD Social History Tobacco Use Types [...] Department Care Team (Late Contact Info) Description 03/17/2025 9:15 AM EDT Office Visit [facility] [address] [place] [phone] Audrey Smith MD [address] [place] [phone] 05/05/2025 9:30 AM EDT Immunization [address] [address] 12/23/2025 10:00 AM EDT Medication Management [address] [address] Janice Candelaria, PharmD [address] [place] [address] documented as of this encounter Procedures Procedure [...] EDT Narrative 03/30/2023 11:21 AM EDT ? [facility] ?[address] ?[place] [address] ?XRay Report ? Signed ? Patient: Owen Montano ?MR#: ?? [id number] ? : 1970 ?Acct:[id number] ? Age/Sex: 52 / M ?ADM Date: 03/30/23 ? Loc: HO.ED ? Attending Dr: ? Ordering Physician: Ada Mcintosh NP ?? Date of Service: 03/30/23 ?? Procedure(s): XR hip RT w PEL1V ?? Accession Number(s): [id number] ? cc: Audrey Smith MD; Ada Mcintosh [...] 1117 ? DD/ 1046 ? TD/TT: ? Nursing Assoc: ? Procedure Note Jamshid, Image - 03/30/[address] [address] XRay Report Signed Patient: Owen MontanoMR#: [id number] : 1970Acct:[id number] Age/Sex: 52 / MADM Date: 03/30/23 Loc: HO.ED Attending Dr: Ordering Physician: Ada Mcintosh NP Date of Service: 03/30/23 Procedure(s): XR hip RT w PEL1V Accession Number(s): [id number] cc: Audrey Smith MD; Ada Mcintosh NP [...] in OV> 03/30/23 1117 DD/ 1046 TD/TT: Nursing Assoc: [facility] External Provider IMG XR PROCEDURES Final Result * Hm Colonoscopy (05/22/2021) Historical Provider HEALTH MAINTENANCE Final Result documented in this encounter Visit Diagnoses Not on filedocumented in this encounter Care Teams Clam Grader Relationship Specialty Start Date End Date Audrey Smith MD [address] [place] [address] PCP - General Family Medicine 11/20/17 Rao Mcdowell, VANE [address] [place] [address] Registered Nurse Family Medicine 11/29/24 Piedad Tolliver 11/29/24 documented as of this encounter
== END 2025-01-04 07:35 | disposition home or self-care (01) ==
LOC: HO.US 07:34
PROVIDERS: PCP Internal Medicine; Visit Provider Nurse Practitioner
DX: K75.81 Nonalcoholic steatohepatitis (NASH) (principal)
CPT/HCPCS: 76700

== ENCOUNTER → 2025-01-04 07:36 | Outpatient (BNV) | payer MEDICAID, SELFPAY | PROVIDERS: PCP Internal Medicine; Visit Provider Radiology Diagnostic Radiology | DX: K76.0 Fatty (change of) liver, not elsewhere classified (principal) | CPT/HCPCS: 76700 ==

== ENCOUNTER 2025-01-07 12:49 | Outpatient (AMB) | payer MEDICAID, SELFPAY ==
--- NOTE | 2025-01-07 12:52 | A.OFFVIS_ITS ---
Vital Signs 01/07/25 12:58 Height 5 ft 6 in Weight 166 lb BMI 26.8 BP 130/70 Blood Pressure Location Rt brachial Position Sitting Pulse 62 Pulse Source Pulse Oximeter Pulse Oximetry (%) 96 Oxygen Delivery Method Room Air Intake Visit Reasons: 6 w Intake Note: Est pt for mgmt of COLON. Labs done. Imaging scheduled. CC; C.O. mild to moderate throat soreness / d.c. and foreign body sensation. Pt states that he also has some dysphagia with this sensation. Pt denies any difficulty with his airway or with GERD mgmt. Rx working OK per pt. Radiologist Physician Required: Yes Radiologist Physician Services: Radiologist Physician Present Radiologist Physician Name: Oscar [id number] Information Interpreted: clinical only Accompanied by: Self / Same As Patient Allergies No Known Allergies (No Known Allergies*) Allergy (Verified 01/07/25 12:53) HPI HPI 6 w: Details: Assessment & Plan (1) GERD (gastroesophageal reflux disease): Code(s): K21.9 - Gastro-esophageal reflux disease without esophagitis Category: Medical (2) Irritable bowel syndrome with diarrhea: Code(s): K58.0 - Irritable bowel syndrome with diarrhea Category: Medical (3) COLON (nonalcoholic steatohepatitis): Comment: 2019: AST/ALT 40/108 with a normal alk-phos, negative autoimmune workup, negative hepatitis a B and C, ferritin is normal at 130, GGT not elevated at 20, hCG tumor marker < 2 Alpha fetoprotein quite elevated at greater than 12 but liver functions are normal the autoimmune workup is normal he is negative for hepatitis B and C and his ultrasound does not show any masses. It is possible that this values being driven out by his injection cholesterol medication or even that has something to do with recently had TURP, MRI 02/2019 neg 07/23/2019?ALPHA-FETOPROTEIN,TUMOR MARKER 12.8??(ng/mL) 03/18/2019 ?ALPHA-FETOPROTEIN,TUMOR MARKER 13.0?AA * CURRENT LABS. 12/03/23 08:09 Plt Count 227 Total Bilirubin 0.7 Direct Bilirubin 0.3 AST 19 ALT 30 Alkaline Phosphatase 81 Ultrasound the abdomen 08/12/22? FINDINGS: PANCREAS: Obscured by bowel gas. LIVER: Normal. The liver is normal in size. The liver contour is normal. Parenchymal echogenicity is normal. No focal hepatic lesion. There is no intrahepatic biliary duct dilatation seen. GALLBLADDER: Normal. The gallbladder is physiologically distended without evidence of stones, sludge, polyps, wall thickening or pericholecystic fluid. COMMON BILE DUCT: Normal in caliber measuring 0.3 cm in diameter. RIGHT KIDNEY: Punctate echogenic foci without twinkle or shadowing may reflect a vascular reflector's. No hydronephrosis. No renal calculi or focal parenchymal lesions. The kidney measures 11.2 cm in maximum dimension. FREE FLUID: None. US/US abdomen limited IMPRESSION: ? Unremarkable sonographic appearance of the liver. ? Pancreas is obscured by bowel gas limiting evaluation. Code(s): K75.81 - Nonalcoholic steatohepatitis (COLON) Category: Medical (4) Type 2 diabetes mellitus with unspecified complications: Code(s): E11.8 - Type 2 diabetes mellitus with unspecified complications Category: Medical Plan [place] #Jessica Shamar He is agreeable to a 5 year follow up. The procedure was well tolerated. The results were explained and the patient is agreeable to the follow-up interval as stated. The bowel pattern has returned to normal. Education was provided to tell any 1st degree relatives about their findings to be sure that they are screened by age 45. Educated that they will be put on a recall list when it is time for their repeat scope but should they move out of state or away from the hospital they will need to remember along with their primary to repeat the procedure in a timely fashion to avoid any adverse complications. He continues to do well on his imipramine at 10 mg and if he has occasional breakthrough he then uses the dicyclomine. Again, he was too sleepy had too much dry mouth on the 20 mg imipramine dose. Also continues on his famotidine twice a day, his Zenpep, and his fiber supplement. He c/o a globus sensation but no HB or perceived GERD nocturnally. No HB during the day either. He DOES have a constant runny nose and watery eyes - I tried rx'ing Mila and he says he is taking it but this is the time of Spring that allergies are bad. This could be from GERD but also could be from his allergies. For now we are going to watch and wait but consider an EGD going forward depending on his future responses. He is agreeable to having additional lab work and an ultrasound to follow-up on his COLON. His weight fluctuates within a few lb and he says his diabetes control has been ?not perfect? but okay. He was educated on the importance of weight control and glucose control along with the avoidance of alcohol. ROV 6-8 weeks Orders: Orders US abdomen complete Today K75.81 - Nonalcoholic steatohepatitis (COLON) Comprehensive Met. Panel Today K75.81 - Nonalcoholic steatohepatitis (COLON) Alpha Fetoprotein Today K75.81 - Nonalcoholic steatohepatitis (COLON) Hemoglobin A1c Today E11.8 - Type 2 diabetes mellitus with unspecified complications, K75.81 - Nonalcoholic steatohepatitis (COLON) Medications: Refilled gunruo-sejptfzr-xvkjgsr 5,000-17,000- 24,000 unit (Zenpep) 1 cap PO QID 120 caps 6RF K58.0 - Irritable bowel syndrome with diarrhea famotidine 40 mg PO BID 60 tabs 6RF imipramine HCl 10 mg PO BEDTIME 30 tabs 6RF K58.0 - Irritable bowel syndrome with diarrhea hydrocortisone 2.5% (Procto-Med HC) 1 ea [place] BID PRN 28 grams 6RF for pain K64.9 - Unspecified hemorrhoids fexofenadine (Allergy Relief (fexofenadine)) 180 mg PO DAILY 30 ea 6RF LABS: Laboratory Tests 11/19/24 13:16 Estimated GFR > 60 Hemoglobin A1c % 7.7 H Total Bilirubin 0.9 AST 28 ALT 42 H Alkaline Phosphatase 99 Alpha Fetoprotein 16.6 H ULTRASOUND OF THE ABDOMEN 01/04/2025 FINDINGS: PANCREAS: No peripancreatic fluid collections. ABDOMINAL AORTA: The proximal, mid, and distal segments are normal in caliber. INFERIOR VENA CAVA: Visualized portions are normal. LIVER: Liver measures 17 cm. Increased echotexture. No gross solid or cystic lesion detected by the technologist. No gross nodular surface. No intrahepatic biliary ductal dilatation. GALLBLADDER: Fluid-filled. No pericholecystic fluid collection or gallbladder wall thickening. COMMON BILE DUCT: 3 mm. RIGHT KIDNEY: 10 cm. Normal echotexture. No gross hydronephrosis. No gross solid or cystic lesion detected by the technologist. . LEFT KIDNEY: 11 cm. Normal echotexture. No hydronephrosis. No gross solid or cystic lesion detected by the technologist. SPLEEN: 11 cm. No focal lesion. FREE FLUID: None. US/US abdomen complete IMPRESSION: Hepatomegaly, mild. Hepatic steatosis. No cholelithiasis. No hydronephrosis. No ascites. TODAY'S VISIT [place] #[id number] His current medications consist of imipramine 10 mg (he was too sleepy on 20 mg, occasional dicyclomine and Imodium for breakthrough diarrhea, occasional promethazine for nausea, Zenpep, famotidine, hemorrhoid cream, and Mila that I prescribed to see if it would help with his throat discomfort. He says he is taking his medicines and is feeling much better. His stomach feels well, but he still has a globus sensation/feeling of discomfort in the are of the left just anterior to the SCL but deep. I think this would warrant an ENT evaluation. I place a referral for him. He says his diabetes control is so, so. His A1C reflects this at 7.7%, and this may be what is driving his transaminitis and his elevaeted AFP. His PCP manages his diabetes, Audrey Holman and I will text her to see if endocrinology referral is something to be considered since it very directly impacts his liver louisa. ROV 6 mos. PFSH Medical History (Updated 01/07/25 @ 13:32 by JORDAN Corey) COVID-19 Hypogonadism Nocturnal hypoxemia SARTHAK (obstructive sleep apnea) Hypogonadism in male On beta catherine at home Hypothyroid IBS (irritable bowel syndrome) BPH (benign prostatic hyperplasia) Anxiety Allergic rhinitis COLON (nonalcoholic steatohepatitis) Elevated AFP Decreased libido Type 2 diabetes mellitus with unspecified complications Other and unspecified hyperlipidemia Essential hypertension Atherosclerotic cardiovascular disease Hypogonadism in male Surgical History (Updated 01/07/25 @ 13:12 by JOSELITO Browne) S/P placement of nerve stimulator History of esophagogastroduodenoscopy (EGD) Hx of colonoscopy History of cardiac cath History of cardiac cath Family History Father Cardiac disease Mother Cardiac disease Social History Are you a primary career and guidance counselor to a significant other at home: No Do you presently have visiting nurse or other home services: No Alcohol intake: former Patient Tobacco Use Status: Former Tobacco user Tobacco use type: Cigarette Review of Systems Const Denies fatigue, Denies fever(s), Denies night sweats, Denies poor appetite and Denies weight loss Eyes Details: glasses Reports requires corrective lenses ENT Reports Normal hearing present, Denies dental pain, Denies dysphagia, Denies hearing loss, Denies mouth pain, Reports odynophagia, Reports sore throat, Denies throat swelling, Denies tongue swelling and Reports other (Dentition adequate) Card Reports no additional complaints Resp Reports no additional complaints GI Details: Denies abdominal pain, Denies melena, Denies bloating, Denies hematochezia, D enies constipation, Reports GI cramping, Denies dysphagia, Denies excessive flatus, Denies early satiety, Reports heartburn, Reports diarrhea, Reports nausea, Reports odynophagia, Denies vomiting and Denies hematemesis Skin/Breast Denies pruritus, Denies lesions, Denies rash and Denies jaundice Neuro Reports Normal hearing present and Denies Abnormal speech present Endo Denies fatigue Aller/Immun Denies throat swelling and Denies tongue swelling Physical Exam Vital Signs: Last Vital Signs Pulse 62 01/07/25 12:58 BP 130/70 01/07/25 12:58 Pulse Ox 96 01/07/25 12:58 Oxygen Delivery Method Room Air 01/07/25 12:58 BMI result Body Mass Index 26.8 Const General: cooperative, no acute distress, well developed and well groomed Nutritional Appearance: average body habitus and well nourished Orientation/consciousness: oriented to person, oriented to place and oriented to time Limitations: language barrier and other limitations (Educational barriers) HEENT Head: Yes normocephalic and Yes atraumatic Eyes General: appearance normal, both eyes and all related structures Pupils: Equal, round and reactive pupils present Neck Neck: Yes normal visual inspection and Yes no lymphadenopathy Thyroid: Thyroid normal Resp Effort & Inspection: normal respiratory effort and able to speak in complete sentences Auscultation: clear to auscultation bilaterally Cardio Rate: regular rate Rhythm: regular rhythm Heart sounds: Normal, physiologic split S2 sound present Peripheral pulses: radial pulses present and posterior tibial pulses present GI Inspection: No distended and No Abdominal panniculus present Palpation (GI): Soft to palpation, nontender, no guarding, not rigid and No hepatosplenomegaly present Percussion: Yes normal to percussion Auscultation: normal bowel sounds Rectal Exam - Male: Yes deferred Skin General skin exam: no rashes or lesions noted, turgor normal, skin not dry, no jaundice, No spider nevi and no striae Rashes: no rashes Nails: normal Neuro General: oriented to person, oriented to place and oriented to time Cranial nerves: Yes Equal, round and reactive pupils present and Yes Normal hearing present Speech: No Abnormal speech present Extrem General: Yes normal to inspection, No clubbing, No cyanosis and No edema Psych Appearance: grossly normal and well kempt Mental Status: mental status grossly normal Speech and movement: Normal speech and movement present Affect: normal affect Attitude: cooperative Thought process: Circumstantial thought process present and not confabulating Thought content: Normal thought content present Insight: Limited insight present (Psych) Judgement: Limited judgement present (Psych) Assessment & Plan Assessment & Plan (1) COLON (nonalcoholic steatohepatitis): Comment: 2019: AST/ALT 40/108 with a normal alk-phos, negative autoimmune workup, negative hepatitis a B and C, ferritin is normal at 130, GGT not elevated at 20, hCG tumor marker < 2 Alpha fetoprotein quite elevated at greater than 12 but liver functions are normal the autoimmune workup is normal he is negative for hepatitis B and C and his ultrasound does not show any masses. It is possible that this values being driven out by his injection cholesterol medication or even that has something to do with recently had TURP, MRI 02/2019 neg 07/23/2019?ALPHA-FETOPROTEIN 12.8??(ng/mL) 03/18/2019 ?ALPHA-FETOPROTEIN 13.0?AA 11/19/24 Alpha Fetoprotein 16.6 H * CURRENT LABS. 11/19/24 13:16 Estimated GFR > 60 Hemoglobin A1c % 7.7 H Total Bilirubin 0.9 AST 28 ALT 42 H Alkaline Phosphatase 99 Alpha Fetoprotein 16.6 H Ultrasound the abdomen 08/12/22? FINDINGS: PANCREAS: Obscured by bowel gas. LIVER: Normal. The liver is normal in size. The liver contour is normal. Parenchymal echogenicity is normal. No focal hepatic lesion. There is no intrahepatic biliary duct dilatation seen. GALLBLADDER: Normal. The gallbladder is physiologically distended without evidence of stones, sludge, polyps, wall thickening or pericholecystic fluid. COMMON BILE DUCT: Normal in caliber measuring 0.3 cm in diameter. RIGHT KIDNEY: Punctate echogenic foci without twinkle or shadowing may reflect a vascular reflector's. No hydronephrosis. No renal calculi or focal parenchymal lesions. The kidney measures 11.2 cm in maximum dimension. FREE FLUID: None. US/US abdomen limited IMPRESSION: ? Unremarkable sonographic appearance of the liver. ? Pancreas is obscured by bowel gas limiting evaluation. Code(s): K75.81 - Nonalcoholic steatohepatitis (COLON) Category: Medical (2) GERD (gastroesophageal reflux disease): Code(s): K21.9 - Gastro-esophageal reflux disease without esophagitis Category: Medical (3) Irritable bowel syndrome with diarrhea: Code(s): K58.0 - Irritable bowel syndrome with diarrhea Category: Medical (4) Impaired swallowing associated with throat pain: Code(s): R13.10 - Dysphagia, unspecified; R07.0 - Pain in throat Category: Medical Plan [place] #[id number] His current medications consist of imipramine 10 mg (he was too sleepy on 20 mg, occasional dicyclomine and Imodium for breakthrough diarrhea, occasional promethazine for nausea, Zenpep, famotidine, hemorrhoid cream, and Mila that I prescribed to see if it would help with his throat discomfort. He says he is taking his medicines and is feeling much better. His stomach feels well, but he still has a globus sensation/feeling of discomfort in the are of the left just anterior to the SCL but deep. I think this would warrant an ENT evaluation. I place a referral for him. He says his diabetes control is so, so. His A1C reflects this at 7.7%, and this may be what is driving his transaminitis and his elevaeted AFP. His PCP manages his diabetes, Audrey Holman and I will text her to see if endocrinology referral is something to be considered since it very directly impacts his liver louisa. ROV 6 mos. Orders: Referrals Ear/Nose/Throat Referral R07.0 - Pain in throat, R13.10 - Dysphagia, uns pecified Medications: Refilled dicyclomine 20 mg PO QID PRN 120 tabs 3RF for cramps K22.4 - Dyskinesia of esophagus famotidine 40 mg PO BID 60 tabs 6RF imipramine HCl 10 mg PO BEDTIME 30 tabs 6RF K58.0 - Irritable bowel syndrome with diarrhea bnbcmg-xowhmmbo-egvloan 5,000-17,000- 24,000 unit (Zenpep) 1 cap PO QID 120 caps 6RF K58.0 - Irritable bowel syndrome with diarrhea promethazine 25 mg PO Q12H PRN 60 tabs 1RF for nausea/vomiting loperamide 2 mg PO BID PRN 60 caps 6RF for diarrhea Coding Level of Care Code Est Pt Level 3 (47091) Diagnoses COLON (nonalcoholic steatohepatitis) K75.81 GERD (gastroesophageal reflux disease) K21.9 Irritable bowel syndrome with diarrhea K58.0 Impaired swallowing associated with throat pain R13.10; R07.0
--- OUTSIDE RECORDS SUMMARY | 2025-01-07 12:52 | XMS_ITS | Encounter Summary ---
Author Organization [employer] Address [address] [facility] [address] [place] [address] Care Team Providers Care Poultry Husbandry Worker Name Role Phone Audrey Smith MD Primary Care Provide r Rao Mcdowell RN Unavailable [phone] Piedad Tolliver Unavailable Encounter Details Date Type Department Care Team (Late st Contact Info) Description 03/27/2023 Orders Only [facility] MEDICINE [address] [place] [phone] ProviderNatasha MD Social History Tobacco Use Types [...] Description 03/17/2025 9:15 AM EDT Office Visit [facility] [address] [place] [phone] Audrey Smith MD [address] [place] [phone] 05/05/2025 9:30 AM EDT Immunization [address] [address] 12/23/2025 10:00 AM EDT Medication Management [address] [address] Janice Candelaria, PharmD [address] [place] [address] documented as of this encounter Procedures Procedure [...] AM EDT Narrative 03/30/2023 11:21 AM EDT [address] [address] XRay Report Signed Patient: Owen Montano MR#: [id number] : 1970 Acct:[id number] Age/Sex: 52 / M ADM Date: 03/30/23 Loc: HO.ED Attending Dr: Ordering Physician: Ada Mcintosh NP Date of Service: 03/30/23 Procedure(s): XR hip RT w PEL1V Accession Number(s): [id number] cc: Audrey Smith MD; Ada Mcintosh NP [...] in OV> 03/30/23 1117 DD/ 1046 TD/TT: Custodial Officer: Procedure Note Donotuseelaineter, Image - 03/30/2023 [facility] [address] [place] [address] XRay Report Signed Patient: Owen MontanoMR#: [id number] : 1970Acct:[id number] Age/Sex: 52 / MADM Date: 03/30/23 Loc: HO.ED Attending Dr: Ordering Physician: Ada Mcintosh NP Date of Service: 03/30/23 Procedure(s): XR hip RT w PEL1V Accession Number(s): [id number] cc: Audrey Smith MD; Ada Mcintosh NP [...] in OV> 03/30/23 1117 DD/ 1046 TD/TT: Custodial Officer: [facility] External Provider IMG XR PROCEDURES Final Result * Hm Colonoscopy (05/22/2021) Historical Provider HEALTH MAINTENANCE Final Result documented in this encounter Visit Diagnoses Not on filedocumented in this encounter Care Teams Poultry Husbandry Worker Relationship Specialty Start Date End Date Audrey Smith MD [address] [place] [phone] PCP - General Family Medicine 11/20/17 Rao Mcdowell, RN [address] [place] [id number] Registered Nurse Family Medicine 11/29/24 Piedad Tolliver 11/29/24 documented as of this encounter
[2025-01-07 12:58] VITALS: BP 130/70; PULSE 62; O2SAT 96; BMI 26.8
== END 2025-01-07 13:44 | disposition home or self-care (01) ==
LOC: HO.HGI 12:50
PROVIDERS: PCP Internal Medicine; Visit Provider Nurse Practitioner
DX: K75.81 Nonalcoholic steatohepatitis (NASH) (principal); K21.9 Gastro-esophageal reflux disease without esophagitis; K58.0 Irritable bowel syndrome with diarrhea; R13.10 Dysphagia, unspecified; R07.0 Pain in throat
CPT/HCPCS: 99213

== ENCOUNTER → 2025-01-07 12:49 | Outpatient (BNVA) | payer MEDICAID, SELFPAY | PROVIDERS: PCP Internal Medicine; Visit Provider Nurse Practitioner | DX: K75.81 Nonalcoholic steatohepatitis (NASH) (principal); K21.9 Gastro-esophageal reflux disease without esophagitis; K58.0 Irritable bowel syndrome with diarrhea; R13.10 Dysphagia, unspecified; R07.0 Pain in throat | CPT/HCPCS: 99212 ==

== ENCOUNTER 2025-02-03 07:10 | Outpatient (REF) | payer MEDICAID, SELFPAY ==
--- OUTSIDE RECORDS SUMMARY | 2025-02-03 07:13 | XMS_ITS | Clinical Summary ---
Author Organization [facility] Address [address] [place] [address] Care Team Providers Care Fly Rail Operator Name Role Phone Unavailable Primary Care Provider [...] 2024 08/01/2023, 07/10/2022, 10/31/2021 Influenza Vaccine (#1) 2025 , 04/18/2022, 04/13/2021, Additional history exists DTap / Tdap / Td (2 - Td or Tdap) 03/16/2028 03/16/2018 Hepatitis B Vaccines Completed 12/07/2020, 01/25/2019, 12/25/2018 Shingrix-Zoster Vaccine Completed 08/09/2021, 05/30 Pneumococcal Vaccine Completed 10/22/2023 RSV Ped < 20 months Aged Out No longe r eligible based on patient's age to complete this topic
--- OUTSIDE RECORDS SUMMARY | 2025-02-03 07:13 | XMS_ITS ---
Author Name [facility] Organization Unknown History of Medication Use Medication Directions Dispensed Refills Start Date End Date Stat Allergy Relief (fexofenadine) 180 mg tablet TAKE 1 TABLET BY MOUTH EVERYDAY AT NOON active aspirin 81 mg tablet,delayed release TAKE 1 TABLET BY MOUTH EVERYDAY AT NOON active bisacodyl 5 mg tablet,delayed release TAKE 2 TABLETS BY MOUTH AT BEDTIME FOR 2 DAYS active clopidogrel 75 mg tablet TAKE 1 TABLET BY MOUTH EVERYDAY AT NOON active cyclobenzaprine 5 mg tablet TAKE 1 TABLET BY MOUTH THREE TIMES DAILY active diclofenac 1 % topical gel APPLY 4 GRAMS TOPICALLY TO AFFECTED AREA(S) TWICE DAILY active dicyclomine 20 mg tablet TAKE 1 TABLET BY MOUTH FOUR TIMES DAILY NEEDED FOR CRAMPS active famotidine 40 mg tablet TAKE 1 TABLET BY MOUTH TWICE DAILY AT NOON AND IN THE EVENING active FreeStyle Lite Strips USE DIRECTED TO TEST BLOOD SUGAR TWICE DAILY active gabapentin 400 mg capsule TAKE 1 CAPSULE BY MOUTH AT NOON, EVENING, AND BEDTIME active glipizide ER 2.5 mg tablet, extended release 24 hr TAKE 1 TABLET BY MOUTH EVERYDAY AT NOON active hydroxyzine HCl 50 mg tablet TAKE 1 TABLET BY MOUTH AT BEDTIME NEEDED FOR SLEEP / FOR ANXIETY active ibuprofen 600 mg tablet TAKE 1 TABLET BY MOUTH THREE TIMES DAILY WITH FOOD active imipramine 10 mg tablet TAKE 1 TABLET BY MOUTH AT BEDTIME active Invokana 100 mg tablet TAKE 1 TABLET BY MOUTH EVERYDAY AT NOON BEFORE MEALS active Jardiance 10 mg tablet TAKE 1 TABLET BY MOUTH EVERYDAY AT NOON active levothyroxine 25 mcg tablet TAKE 1 TABLET BY MOUTH EVERY MORNING BEFORE BREAKFAST active lidocaine 5 % topical patch APPLY 1 PATCH TOPICALLY TO SKIN, LEAVE ON FOR 12 HOURS AND OFF FOR 12 HOURS DIRECTED active loperamide 2 mg capsule TAKE 1 CAPSULE BY MOUTH TWICE DAILY NEEDED FOR DIARRHEA active lorazepam 2 mg tablet TAKE 1 TABLET BY MOUTH AT BEDTIME active metformin 1,000 mg tablet TAKE 1 TABLET BY MOUTH TWICE DAILY AT NOON AND IN THE EVENING active methocarbamol 750 mg tablet TAKE 1 TABLET BY MOUTH EVERY TWELVE HOURS active metoprolol succinate ER 50 mg tablet,extended release 24 hr TAKE 1 TABLET BY MOUTH EVERYDAY AT NOON active naloxone 4 mg/actuation nasal spray FOR SUSPECTED OPIOID OVERDOSE. SPRAY 0.1mL IN ONE NOSTRIL. REPEAT IN ALTERNATE NOSTRIL 2-3 MINUTES IF NEEDED. SEEK MEDICAL ATTENTION IMMEDIATELY EVEN IF PATIENT RESPONDS. active nitroglycerin 0.[address] 1 TABLET UNDER THE TONGUE NEEDED FOR CHEST PAIN - MAY REPEAT IN 5 MINUTES TWICE. IF NO RELIEF CALL 911 OR GO TO EMERGENCY ROOM. active oxybutynin chloride ER 5 mg tablet,extended release 24 hr TAKE 1 TABLET BY MOUTH EVERYDAY AT NOON active oxycodone 5 mg tablet TAKE 1 TO 2 TABLET S BY MOUTH EVERY 8 HOURS NEEDED FOR SEVERE PAIN active peg 3350-electrolytes 236 gram-22.74 gram-6.74 gram-5.86 gram solution MIX BOTTLE DIRECTED AND TAKE 240 ML BY MOUTH EVERY 10 MINUTES DO NOT EXCEED 2000 ML active Praluent Pen 75 mg/mL subcutaneous pen injector INJECT 75 MG SUBCUTANEOUSLY EVERY 2 WEEKS active Procto-Med HC 2.5 % topical cream perineal applicator INSERT 1 APPLICATORFUL RECTALLY TWICE DAILY NEEDED FOR PAIN active promethazine 25 mg tablet TAKE 1 TABLET BY MOUTH EVERY TWELVE HOURS NEEDED FOR NAUSEA AND VOMITING active Reguloid (psyllium husk) 0.4 gram capsule TAKE 1 CAPSULE BY MOUTH TWICE DAILY active risperidone 4 mg tablet TAKE 1 TABLET BY MOUTH TWICE DAILY AT NOON AND BEDTIME active rosuvastatin 20 mg tablet TAKE 1 TABLET BY MOUTH AT BEDTIME active sertraline 100 mg tablet TAKE 2 TABLETS BY MOUTH ONCE DAILY AT NOON active sertraline 50 mg tablet TAKE 1 TABLET BY MOUTH EVERYDAY AT NOON active tamsulosin 0.4 mg capsule TAKE 1 CAPSULE BY MOUTH AT BEDTIME active testosterone cypionate 200 mg/mL intramuscular oil INJECT 0.7 ML (140 MG) INTRAMUSCULARLY EVERY 2 WEEKS active Vitamin D3 25 mcg (1,000 unit) capsule TAKE 1 CAPSULE BY MOUTH EVERYDAY AT NOON active Zenpep 5,000 unit-17,000 unit-24,000 unit capsule,delayed release TAKE 1 CAPSULE BY MOUTH FOUR TIMES DAILY active Encounters Encounter Type Encounter Reason Primary Diagnosis Location Date [facility] 08/10/2024 Ambulatory [facility] 08/02/2024 Care Team Organization Name Specialty Phone Email Start Date End Da [facility] 2024
--- OUTSIDE RECORDS SUMMARY | 2025-02-03 07:13 | XMS_ITS ---
Author Organization [employer] Address [address] [facility] [address] [place] [address] Care Team Providers Care News Videographer Name Role Phone Audrey Smith MD Primary Care Provide r Rao Mcdowell RN Unavailable [phone] Piedad Tolliver Unavailable [facility] Status:Enrolled (Active) Start date:11/29/2024 Enrollment date:12/06/2024 Enrollment reason:ADT Feed Overview [facility]T-[facility] ED 11/26/24 Case Team Name Relationship Phone Piedad Tolliver(Responsible Staff) Continued Care and Services Coordination
--- OUTSIDE RECORDS SUMMARY | 2025-02-03 07:13 | XMS_ITS | Clinical Summary ---
Author Organization [address] [facility] Address [address] [place] [address] Phone Care Team Providers Care Gas Compressor Operator Name Role Phone Audrey Smith MD [...] not requiring any pain medication. Sarbjit from [employer] is here as well to go over [...] pain med refills today. We used [employer] deaf interpreter Leeanna #[phone], Morgan #[id number]. Chronic pain syndrome 09/21/2024 Diabetic neuropathy, painful ([facility] V24, [facility] V28) 09/14/2024 Assessment & Plan (09/14/2024 4:44 PM EST): I reviewed the steps involved in placement of the spinal cord stimulator leads and generator with the patient in conjunction with Sarbjit the used equipment sales representative from [employer] and a child welfare specialist. I demonstrated the position of each incision [...] hyperglycemia, without long-term current use of insulin ([facility] V24, [facility] V28) 12/04/2022 Stented coronary artery 11/20/2017 Essential hypertension 11/20/2017 Anxiety 11/20/2017 Acquired hypothyroidism 11/20/2017 Immunizations Name Administration Dates Next Due COVID-19 (Moderna/Spikevax) 12yo and older 07/10/2022 Hepatitis B (Oewljrp-T-Zqgcz , Recombivax HB-Adult) 19yo and older 12/07/2020,01/25/2019,12/25/2018 [...] IMPLANT 10/04/2024 Dr. Davenport and Dr. Parsons, [facility] Medical History Medical History Date Comments Diabetes mellitus ([facility] V24, [facility] V28) Hypertension Disease of thyroid gland Hypercholesteremia [...] 69 10/04/2024 2:34 PM EDT Temperature 36.2 C (97.1 F) 10/04/2024 2:34 PM EDT Respiratory Rate 18 10/04/2024 2:34 PM EDT [...] AM EDT Office Visit Orthopedic Surgery - [place] [address] [id number] Aaron Graves, DPM [address] [address] Health Maintenance Due Date Last Done Comments Diabetes: Annual Foot Exam 11/07/1979 Diabetes: Annual Retina Eye Exam 11/07/1979 Colorectal Cancer Screening: Colonoscopy 08/15/2023 HIV Screening 08/15/2023 Hepatitis C Screening 08/15/2023 Social Influencers of Health Screening 08/15/2023 Diabetes: Annual Urine Albumin-Creatinine Ratio (uACR) 04/29/2024 Influenza Vaccine (#1) 2025 , 05/16/2023, 04/18/2022, Additional history exists Depression Screening 05/21/2025 05/21/2024 Diabetes: Blood Sugar [...] Completed 05/21/2024, 06/2024, 07/10/2022, Additional history exists Hepatitis A Vaccines Aged [...] this topic Medical Devices Implanted Type Area Smasher Device Identifier Shelf Expiration Date Model / Serial / Lot Lead Linear Trial St - [id number] - [id number] Implanted:Qty : 1 on 08/24/2024 by Rock Parsons MD at [facility] Neurostim Right: Back [employer] 03/23/2026 [id number] / [id number] / [id number] Lead Linear Trial St - [id number] - [id number] Implanted:Qty : 1 on 08/24/2024 by Rock Parsons MD at [facility] Neurostim Left: Back [employer] 03/15/2026 [id number] / [id number] / [id number] Generator Implant Pulse Ww Alpha - [id number] - [id number] Implanted:Qty : 1 on 10/04/2024 by Cara Davenport MD at [facility] Neurostim Left: Back [employer] [id number] 06/22/2026 [id number] / [id number] / [id number] Powder Surgifoam Absorb Gel - [facility] - [id number] Implanted:Qty : 1 on 10/04/2024 by Cara Davenport MD at [facility] [employer] Left: Back [facility] [employer] [id number] 06/28/20261977 / NA / [id number] Linearv Contact Lead Set Implanted:Qty : 1 on 10/04/2024 by Cara Davenport MD at [facility] Left: Back [employer] 08/13/2026 [id number] / [id number] / [id number] Linear Contact Lead Kit Implanted:Qty : 1 on 10/04/2024 by Cara Davenport MD at [facility] Left: Back [employer] 08/13/2026 [id number] / [id number] / [id number] Insurance MEDICAID - [place] Advance Directives * [...] currently active code status orders. Care Teams Gas Compressor Operator Relationship Specialty Start Date End Date Audrey Smith MD [address] [place] [phone] PCP - General 07/01/23
--- OUTSIDE RECORDS SUMMARY | 2025-02-03 07:13 | XMS_ITS | Data Portability ---
Author Organization [facility] [employer] [facility], [id number] Address [address] [facility] [address] [place] [address] Care Team Providers Care Home And School Visitor Name Role Phone ADRI REDDY Referring Provider [phone] MAINE MORELAND Signing Teacher [phone] FREDY MORENO Psychiatrist Assessment No assessment recorded. [...] proce dures No observ ation record ed. [email or web address] [address], [address], 08/25/2024 09:45:35 08/24/1908/24/2024 xr fluor o up to 1 hour See Note [facility] 100du.tva [facility] , a member of [employer] [facility] Name: OWEN RODRIGUES Date of : 1970 Reason for Exam: pain Exam Date: 2024 [id number] EST Report Status : Final Orderi ng Provid er: ROCK BALDERAS PCP: SUNNY Browne gs: Fluoro scopy was provid ed for Dr. Balderas during a pain manage ment proced ure. No radiol ogist was in attend ance. Cumula tive Dose: 20.61 mGy IMPRES [place]: Impres [place]: Fluoro scopy provid ed by the Depart ment of Radiol ogy during a pain manage ment proced [place]. [place] ------ -- FINAL REPORT ------ -- Dictat ed By: Linda Kaba Dictat ed Date: 2024 13:23 ET Assign ed Physic kristan: Linda Kaba Review ed and Electr onical ly Signed By: Linda Kaba Signed Date: 2024 13:23 ET Workst ation ID: [id number] Transc ribed By: Self Edit Transc ribed Date: 2024 13:23 ET [email or web address] [address], [address], 08/25/2024 09:45:35 Result Notes None recorded. Problems Name Problem SNOMED Code Status Onset Date Resolution Date Notes Provider Name and Address Organization Details Recorded Time Diabetic peripheral neuropathy 018160432 Active 025 Rock Balderas MD [facility] 5 11:30:01 Problem Notes None recorded. Medical Equipment None Reported. Allergies Allergen ID Allergen Name Allergen Category Reaction Reaction Severity Criticality Documentation Date Start Date Code Code System Note Provider Name and Address Organization Details Recorded Time 53585 No Allergy Informati on Available Not available Not available Not available Not available 08/31/2024 52471 UNK Comme nt: dfnam e: Rere tobar; alma rosa e: Raymon marroquin; ; Not Available [facility] 5 16:49:03 Medications Name Sig Start Date [...] Available No t Available BD Regular Bevel [place] 18 gauge x 1 USE WITH testosteron [...] Available Not Available No t Available FreeStyle New [place] Lite kit USE TWICE DAILY active Not [...] blood by Pulse oximetry Body temperature Systolic And Diastolic Provider Name and Address Organization Details Last Updated DateTime 5 165.1 cm 26.3 kg/m2 08334.5 9 g 63 /min 99 % 99 % 98 [degF] 110/72 mm[Hg] [facility] 5 11:18:47 Social History None recorded. Functional Status None recorded. Mental Status None recorded. Family History Nothing Reported. Medical History Condition Response Thyroid Problems Y Diabetes Y Hypertension Y Past Encounters Encounter ID Performer Location Encounter Start Date Encounter Closed Date Diagnosis/Indication Diagnosis SNOMED-CT Code Diagnosis ICD10 Code Diagnosis Note [id number] Rock Balderas MD [id number] [facility] [address] [place] [address] 08/31/2024 09:37:10 08/31/2024 12:26:48 Diabetic peripheral neuropathy 926766477 E11.40 -patient with long-stand ing history of [...] tomorrow -his current psychiatri st (Dr. Moreno-- [facility]--[phone] ) -will coordinate with Dr. Davenport for permanent SCS implant; will need to hold plavix prior to this procedure as well (Dr. Gary patel--[facility] ) -20 minutes was used for chart review, interviewi ng/examini ng, and counseling the patient during today's visit, and patient denies having any other further questions/ concerns [id number] Rock Balderas MD [id number] [facility] [address] [facility] [address] [address] [place] [address] 11/02/2024 11:11:23 11/02/2024 13:04:56 Diabetic peripheral neuropathy 072190272 E11.40 -patient with long-stand ing history of bilateral foot pain, likely 2/2 diabetes and HTN induced neuropathy -patient did quite well with SCS trial, and underwent SCS implant on 10/04/24; currently reports that pain is significan tly improved -his current psychiatri st (Dr. Moreno-- [facility]-- [phone] ) -35 minutes was used for chart review, interviewi ng/examini ng, and counseling the patient during today's visit, and patient denies having any other further questions/ concerns -f/up in 6 months Health Concerns Section Related Observation LastModified by Organization Detai ls LastModified Time None Recorded Concern Status LastModified by Organization Details LastModified Time None Recorded Advance Directives Directive None Recorded Payers Insurance Date Sequence Insurance Name Policy Number Policy Price Covered Member ID Price Member ID Guarantor Name 10/30/2024 1 [place] [facility] Owen Hurd [id number] Owen Hightoweriago Notes Date Note Type Note Provider Name [...] Of note, patient is on PLAVIX (sees [facility]).he reports that performing activities of daily living is somewhat difficult.Current pain medications: gabapentin 400mg TIDPrevious Medications and doses tried/effect: lidocaine patch, voltaren gelPrevious Nerve Block or Injection: right-sided hip injectionsI personally reviewed prior radiological services. I also obtained relevant old records and reviewed lab data.Imaging Studies: none 08/31/24: Patient seen and examined [...] applied to insertion sites. Rock Balderas MD [facility] [place] [facility] 11/02/2024 12:21:06 11/02/2024 text/html Owen Hurd is a pleasant 53 y.o. year old male, who has a past medical history of Diabetes mellitus (HCC), Disease of thyroid gland, Hypercholesteremia, Hypertension, and Sleep apnea. CAD s/p stentx3, who presents with moderate bilateral foot/ankle pain for several years. he denies any inciting events. Of note, patient is on PLAVIX (sees [facility]).he reports that performing activities of daily living is somewhat difficult.Current pain medications: gabapentin 400mg TIDPrevious Medications and doses tried/effect: lidocaine patch, voltaren gelPrevious Nerve Block or Injection: right-sided hip injectionsSCS trial (08/24/24): ~75% improvement in bilateral foot painSCS implant (10/04/24):I personally reviewed prior radiological services. I also obtained relevant old records and reviewed lab data.Imaging Studies: none 08/31/24: Patient seen and examined [...] SCS implant on 10/04/24. We had the medical service representative from [employer] also present at today's visit. With additional [...] sites are healing well. Rock Balderas MD [facility] [place] [facility] 11/02/2024 12:40:27
== END 2025-02-03 07:11 | disposition home or self-care (01) ==
LOC: HO.LAB 07:10
PROVIDERS: PCP Internal Medicine; Visit Provider Urology
DX: R68.82 Decreased libido (principal)
CPT/HCPCS: 36415; 84403

== ENCOUNTER 2025-02-17 10:00 | Outpatient (AMB) | payer MEDICAID, SELFPAY ==
--- NOTE | 2025-02-17 10:26 | MHC.OFFVIS ---
Intake Visit Reasons: 12W/pellet insertion Intake Note: Patient is present for 12W/TESTOPEL Urology Medication: TAMSULOSIN,OXYBUTYNIN,TESTOSTERONE Antibiotic Allergy:NONE Blood Thinner:ASPIRIN Labs done 11/2024:783 Head Inspector And Center Marker Required: Yes Head Inspector And Center Marker Language: Ugandan Accompanied by: Self / Same As Patient Allergies No Known Allergies (No Known Allergies*) Allergy (Verified 02/17/25 10:27) HPI Comments Details: Owen is Ugandan-speaking male. He is a patient of Dr. Holman. He is seen for the following urologic conditions - hypogonadism - bladder outlet obstruction Ugandan translation provided by qualified chief medical technologist Here for testosterone pellet insertion insertion #3 Reviewed lab work Good response Left side insertion Testosterone Initial 935 425 #2 783 450 Has had difficulties injecting the correct amount of testosterone due to needle phobia Also had highly variable hematocrit Previously failed T gel secondary to absorption issues Instructed to repeat lab work at 2 weeks and 10 weeks with follow-up testosterone pellets at 12 weeks He has had difficulty with injecting the correct amount and has to have his partner give the shots since he is scared of needles Given peak and trough with injections every 2 weeks and high hematocrit would recommend trying testopel Hypogonadism Longstanding Testosterone replacement started in [place] Continues with 1.0 cc 200 milligram/mL injection every 2 weeks - injection day Friday - laboratory day Friday - knows to do labs mid cycle Laboratories - 05/10 T 604, PSA 0.7, Hct 47.5, 11/09 T 1171 0.8 53, 05/11 T 1012 52, 11/10 T 388 H52, 05/11 T 890 P 0.8., 11/11 T 1200 Hct 53, 05/13 1061 295 51 Bladder outlet obstruction Initial weakness of stream and incomplete emptying Good response to tamsulosin with oxybutynin Controls nocturia PFSH Medical History (Updated 01/07/25 @ 13:32 by JORDAN Corey) COVID-19 Hypogonadism Nocturnal hypoxemia SARTHAK (obstructive sleep apnea) Hypogonadism in male On beta catherine at home Hypothyroid IBS (irritable bowel syndrome) BPH (benign prostatic hyperplasia) Anxiety Allergic rhinitis COLON (nonalcoholic steatohepatitis) Elevated AFP Decreased libido Type 2 diabetes mellitus with unspecified complications Other and unspecified hyperlipidemia Essential hypertension Atherosclerotic cardiovascular disease Hypogonadism in male Surgical History (Updated 01/07/25 @ 13:12 by JOSELITO Browne) S/P placement of nerve stimulator History of esophagogastroduodenoscopy (EGD) Hx of colonoscopy History of cardiac cath History of cardiac cath Family History Father Cardiac disease Mother Cardiac disease Social History Are you a primary outdoor emergency care technician to a significant other at home: No Do you presently have visiting nurse or other home services: No Alcohol intake: former Patient Tobacco Use Status: Former Tobacco user Tobacco use type: Cigarette Review of Systems Const Denies chills and Denies fever(s) Card Reports no additional complaints and Denies syncope Resp Denies cough GI Denies abdominal pain and Denies heartburn Reports as per HPI and Denies change in libido Neuro Denies syncope Psych Denies change in libido Endo Denies change in libido Physical Exam Const General: cooperative, healthy appearing, comfortable and no acute distress Orientation/consciousness: patient oriented x3 HEENT Face and sinus: Yes normal facial exam Mouth: moist mucous membranes Neck Neck: Yes normal visual inspection, Yes full ROM and Yes trachea midline Chest Chest palpation & inspection: normal inspection of the chest Resp Effort & Inspection: normal respiratory effort, able to speak in complete sentences and no respiratory distress GI Inspection: Yes normal to inspection Back/Spine/Pelvis Cervical Spine: normal cervical lordosis Thoracic/Lumbar Spine: thoracic and lumbar spine normal to inspection Skin General skin exam: no rashes or lesions noted Neuro General: patient oriented x3, gait normal, tone normal and moves all extremities Extrem General: Yes normal to inspection and Yes capillary refill normal Office Procedures AMB Testopel Details: Testopel Placement Pre Op Diagnosis - Low testosterone Post Op Diagnosis - Low Testosterone Procedure: Testopel Insertion Testopel was prepared for insertion. Six Testopel pellets were removed from the individual glass containers and placed in a sterile container. The patient was placed in left lateral position with left side down and right side up. The area over the right hip was cleaned with Betadine. A fenestrated drape was placed over the area. Lidocaine 2% was injected first as a skin wheal and then into the subcutaneous tissue directed in a fashion down towards the femur in the subcutaneous space to perform hydrodissection. The purpose of the injection is to numb the length of the trocar track. A 15 Blade scapel was used to make a puncture incision into the subcutaneous space. Trocar with sharp-ended stylet inserted through stab incision at a 45? angle and into the subcutaneous fat layer. The needle was flatten out and advanced leaving the pellet loading area exposed. 6 pellets were inserted using Adson forceps into the loading trocar in a V pattern. The blunt stylet was used to advance pellets into the tract while withdrawing the trocar - 4 pellets and 2 pellets placed in each arm of the V. Once completed the area was wiped with alchohol. The trocar insertion site was closed with multiple steristrips and a 2x2 gauze placed with a tegaderm dressing placed. CPT 60917 J3490 Subcutaneous Hormone Pellet Insertion: 08813 Subq Hormone Pellet Insertion Office Meds Testopel 75 mg implant pellet Performing Provider: Eliezer Rivas MD Performing Location: [facility] [place] [facility] Administered by: Eliezer Rivas MD on 02/17/25 13:38 Dose Route Admin Location Dispensed Lot Number Expiration Date [facility] Program Professional 75 mg implant 6 ea Total Dispensed Waste 6 ea 0 % lidocaine HCl 20 mg/mL (2 %) injection solution Performing Provider: Eliezer Rivas MD Performing Location: [facility] [place] [facility] Administered by: Eliezer Rivas MD on 02/17/25 13:38 Dose Route Admin Location Dispensed Lot Number Expiration Date [place] Program Professional 10 mL subcut 10 mL Total Dispensed Waste 10 mL 0 % Assessment & Plan Assessment & Plan (1) Hypogonadism in male: Code(s): E29.1 - Testicular hypofunction Category: Medical Plan Continue 12 week follow-up Orders: Orders Testosterone, Total 10 Weeks E29.1 - Testicular hypofunction AMB Testosterone Pellet Implant Today E29.1 - Testicular hypofunction Medications: Changed From testosterone (Testopel) 6 pellets every 12 weeks 75 mg implant .every 12 weeks 6 ea 2RF hypogonadism To testosterone (Testopel) 6 pellets every 12 weeks. 75 mg implant .every 12 weeks 6 ea 2RF hypogonadism Patient Instructions: This note is constructed using voice recognition software. While every effort has been made to ensure accuracy training professional errors may have been included. Imaging studies, laboratory and physical exam results were discussed and reviewed in detail. No major barriers to patient understanding were identified. An opportunity to ask questions regarding the treatment plan was provided. All questions were answered. The patient expressed understanding and agreement with the above treatment plan. The patient is aware they should contact our office by phone for worsening of their current condition or the appearance of new urologic symptoms. Compliance is encouraged with any medications and followup testing that is ordered. It is a privilege to participate in the urologic care of your patient. If you have any questions or concerns regarding treatment for the above conditions, or other urologic issues, please do not hesitate to contact me. The office telephone contact is [phone]. Sincerely, Dr Eliezer Rivas MD, [facility] - Urology Compassionate Specialist Care for the Genitourinary System Coding Level of Care Code Procedure Only Diagnoses Hypogonadism in male E29.1
--- OUTSIDE RECORDS SUMMARY | 2025-02-17 10:40 | XMS_ITS | Clinical Summary ---
Author Organization 175 [facility] Address [address] [place] [address] Phone Care Team Providers Care Steel Layer Name Role Phone Audrey Smith MD Primary [...] not requiring any pain medication. Sarbjit from [employer] is here as well to go over [...] pain med refills today. We used [employer] regional property manager Leeanna #[id number], Morgan #[id number]. Chronic pain syndrome 09/21/2024 Diabetic neuropathy, painful ([facility] V24, [facility] V28) 09/14/2024 Assessment & Plan (09/14/2024 4:44 PM EST): I reviewed the steps involved in placement of the spinal cord stimulator leads and generator with the patient in conjunction with Sarbjit the senior patient account representative from [employer] and a appraiser irrigation tax. I demonstrated the position of each incision [...] hyperglycemia, without long-term current use of insulin ([facility] V24, [facility] V28) 12/04/2022 Stented coronary artery 11/20/2017 Essential hypertension 11/20/2017 Anxiety 11/20/2017 Acquired hypothyroidism 11/20/2017 Immunizations Name Administration Dates Next Due COVID-19 (Moderna/Spikevax) 12yo and older 07/10/2022 Hepatitis B (Zvharqu-B-Hflrj , Recombivax HB-Adult) 19yo and older 12/07/2020,01/25/2019,12/25/2018 [...] IMPLANT 10/04/2024 Dr. Davenport and Dr. Parsons, [facility] Medical History Medical History Date Comments Diabetes mellitus ([facility] V24, [facility] V28) Hypertension Disease of thyroid [...] AM EDT Office Visit Orthopedic Surgery - [place] [address] [phone] Aaron Graves, DPM [address] [address] Health Maintenance Due Date Last Done Comments Diabetes: Annual Foot Exam 11/07/1979 Diabetes: Annual Retina Eye Exam 11/07/1979 Colorectal Cancer Screening: Colonoscopy 08/15/2023 HIV Screening 08/15/2023 Hepatitis C Screening 08/15/2023 Social Influencers of Health Screening 08/15/2023 Diabetes: Annual Urine Albumin-Creatinine Ratio (uACR) 04/29/2024 Depression Screening 07/21/2024 Influenza Vaccine (#1) 2025 , 05/16/2023, 04/18/2022, Additional history exists Diabetes: Blood Sugar Control Test (HGBA1C) 05/22/2025 [...] this topic Medical Devices Implanted Type Area Director Airport Operations Device Identifier Shelf Expiration Date Model / Serial / Lot Lead Linear Trial St - [id number] - [id number] Implanted:Qty : 1 on 08/24/2024 by Rock Parsons MD at [facility] Neurostim Right: Back [employer] 03/23/2026 [id number] / [id number] / [id number] Lead Linear Trial St - [id number] - [id number] Implanted:Qty : 1 on 08/24/2024 by Rock Parsons MD at [facility] Neurostim Left: Back [employer] 03/15/2026 [id number] / [id number] / [id number] Generator Implant Pulse Ww [place] - [id number] - [id number] Implanted:Qty : 1 on 10/04/2024 by Cara Davenport MD at [facility] Neurostim Left: Back [employer] [id number] 06/22/2026 [id number] / [id number] / [id number] Powder Surgifoam Absorb Gel - Sna - [id number] Implanted:Qty : 1 on 10/04/2024 by Cara Davenport MD at [facility] [employer] Left: Back [facility] [employer] [id number] 06/28/20261977 / [id number] / [id number] Linearv Contact Lead Set Implanted:Qty : 1 on 10/04/2024 by Cara Davenport MD at [facility] Left: Back [employer] 08/13/2026 [id number] -50 / [id number] / [id number] Linear Contact Lead Kit Implanted:Qty : 1 on 10/04/2024 by Cara Davenport MD at [facility] Left: Back [employer] 08/13/2026 [id number] / [id number] / [id number] Insurance MEDICAID - [place] Advance Directives [...] currently active code status orders. Care Teams Steel Layer Relationship Specialty Start Date End Date Audrey Smith MD [address] [place] [phone] [facility] - General 07/01/23
--- OUTSIDE RECORDS SUMMARY | 2025-02-17 10:40 | XMS_ITS ---
Author Organization [employer] Address [address] [facility] [address] [place] [address] Care Team Providers Care Statement Clerk Name Role Phone Audrey Smith MD Primary Care Provide r Rao Mcdowell RN Unavailable [phone] Piedad Tolliver Unavailable [facility] Complex Status:Enrolled (Active) Start date:11/29/2024 Enrollment date:12/06/2024 Enrollment reason:ADT Feed Overview ADT-[facility] ED 11/26/24 Case Team Name Relationship Phone Piedad Tolliver(Responsible Staff) Continued Care and Services Coordination
--- OUTSIDE RECORDS SUMMARY | 2025-02-17 10:40 | XMS_ITS | Clinical Summary ---
Author Organization [facility] Address [address] [place] [address] Care Team Providers Care Quality Compliance Manager Name Role Phone Unavailable Primary Care [...]
== END 2025-02-17 11:02 | disposition home or self-care (01) ==
LOC: HO.HUSH 10:00
PROVIDERS: PCP Internal Medicine; Visit Provider Urology
DX: E29.1 Testicular hypofunction (principal)
CPT/HCPCS: 11980

== ENCOUNTER → 2025-02-17 10:00 | Outpatient (BNVA) | payer MEDICAID, SELFPAY | PROVIDERS: PCP Internal Medicine; Visit Provider Urology | DX: E29.1 Testicular hypofunction (principal); N32.0 Bladder-neck obstruction | CPT/HCPCS: 11980; J2003; J3490 ==

== ENCOUNTER 2025-03-08 13:26 | Outpatient (AMB) | payer MEDICAID, SELFPAY ==
--- NOTE | 2025-03-08 13:34 | MHC.OFFVIS ---
Vital Signs 03/08/25 13:56 Height 5 ft 6 in Weight 167 lb 8.821 oz BMI 27.0 BP 112/60 Blood Pressure Location Lt brachial Position Sitting Pulse 63 Pulse Source Monitor Intake Visit Reasons: 1 yr follow up Marketing Director Assisted Living Required: Yes Marketing Director Assisted Living Name: EDU [id number] Allergies No Known Allergies (No Known Allergies*) Allergy (Verified 02/17/25 10:27) Medication List - Last Reconciled 03/08/25 by Bob Driscoll MD alirocumab (Praluent Pen) 75 mg subcut Q2W aspirin (Adult Low Dose Aspirin) 81 mg PO DAILY blood sugar diagnostic (FreeStyle Lite Strips) As directed blood-glucose meter (FreeStyle [place] Lite kit) As directed cholecalciferol (vitamin D3) 25 mcg PO DAILY clopidogrel 75 mg PO DAILY cyclobenzaprine 5 mg PO TID dicyclomine 20 mg PO QID PRN empagliflozin (Jardiance) 25 mg PO DAILY famotidine 40 mg PO BID fexofenadine (Allergy Relief (fexofenadine)) 180 mg PO DAILY gabapentin 400 mg PO TID glipizide ER 2.5 mg PO DAILY hydrocortisone 2.5% (Procto-Med HC) 1 ea UT BID PRN hydroxyzine HCl 1 tab PO BEDTIME PRN imipramine HCl 10 mg PO BEDTIME lancets (TRUEplus Lancets) As directed levothyroxine 25 mcg PO QAM lidocaine 5% (Lidoderm) 1 patch topical DAILY PRN rhaatv-uvkgmrci-wosiysj 5,000-17,000- 24,000 unit (Zenpep) 1 cap PO QID loperamide 2 mg PO BID PRN lorazepam 2 mg PO DAILY PRN metformin ER 1,000 mg PO QPM metoprolol succinate ER 50 mg PO DAILY needle (disp) 18 G (BD Regular Bevel [place]) As directed - draw up testosterone needle (disp) 22 G To inject Testosterone nitroglycerin 0.4 mg sublingual Q5M PRN oxybutynin chloride ER 5 mg PO DAILY 90 days promethazine 25 mg PO Q12H PRN risperidone 4 mg PO BEDTIME rosuvastatin 20 mg PO BEDTIME sertraline 100 mg PO DAILY sertraline 50 mg PO DAILY syringe (disposable) (Monoject TB Luer Judy) As directed - use 18 needle to draw up testosterone and 22 to inject tamsulosin 0.4 mg PO BEDTIME 90 days testosterone (Testopel) 75 mg implant .every 12 weeks HPI Comments Details: Owen returns for follow-up regarding coronary disease. He has a history of multiple stents placed in [place] few years back. Overall, he is feeling good. No clear-cut exertional angina. He is having some vague shoulder pains but sounds very nonspecific. [facility] Medical History (Updated 01/07/25 @ 13:32 by JORDAN Corey) COVID-19 Hypogonadism Nocturnal hypoxemia SARTHAK (obstructive sleep apnea) Hypogonadism in male On beta catherine at home Hypothyroid IBS (irritable bowel syndrome) BPH (benign prostatic hyperplasia) Anxiety Allergic rhinitis COLON (nonalcoholic steatohepatitis) Elevated AFP Decreased libido Type 2 diabetes mellitus with unspecified complications Other and unspecified hyperlipidemia Essential hypertension Atherosclerotic cardiovascular disease Hypogonadism in male Surgical History (Updated 01/07/25 @ 13:12 by JOSELITO Browne) S/P placement of nerve stimulator History of esophagogastroduodenoscopy (EGD) Hx of colonoscopy History of cardiac cath History of cardiac cath Family History Father Cardiac disease Mother Cardiac disease Social History Are you a primary pharmacy customer care specialist to a significant other at home: No Do you presently have visiting nurse or other home services: No Alcohol intake: former Patient Tobacco Use Status: Former Tobacco user Tobacco use type: Cigarette Review of Systems Const Denies weakness ENT Denies dizziness Card Denies chest pain, Denies chest pain with activity, Denies syncope, Denies rapid heart rate, Denies pedal edema, Denies edema, Denies leg edema, Denies lightheadedness, Denies palpitations, Denies dyspnea, Denies dyspnea on exertion and Denies orthopnea Resp Denies cough, Denies dyspnea and Denies dyspnea on exertion GI Denies hematochezia and Denies change in stool character Musc Denies abnormal gait, Reports myalgias, Denies muscle cramps, Denies muscle weakness, Denies numbness, Denies radiating pain into limb and Denies tingling Neuro Denies abnormal gait, Denies dizziness, Denies syncope, Denies numbness, Denies tingling and Denies weakness Endo Denies palpitations Physical Exam Vital Signs: Last Vital Signs Pulse 63 03/08/25 13:56 BP 112/60 03/08/25 13:56 BMI result Body Mass Index 27.0 Const General: comfortable and no acute distress Orientation/consciousness: patient oriented x3 HEENT Other: Unremarkable Head: Yes normal to inspection Neck Neck: Yes normal visual inspection Chest Chest palpation & inspection: normal inspection of the chest Resp Auscultation: clear to auscultation bilaterally Cardio Palpation: normal PMI Heart sounds: S1 normal heart sound present, S2 normal heart sound present, no gallops, Murmur heart sound present systolic at the apex and no rubs GI Palpation (GI): Soft to palpation Back/Spine/Pelvis Other: unremarkable Skin General skin exam: no rashes or lesions noted Neuro General: patient oriented x3 Extrem General: Yes normal to inspection Psych Mental Status: mental status grossly normal Office Procedures EKG Details: EKG with underlying sinus rhythm at 63/Min; inferior as well as anterolateral T inversions. 96513-Xjixegdjyxfaodhoe, Complete Assessment & Plan Assessment & Plan (1) Atherosclerotic cardiovascular disease: Code(s): I25.10 - Atherosclerotic heart disease of [place] coronary artery without angina pectoris Category: Medical Plan: Cardiac catheterization/stenting of distal left main into proximal LAD from 2017; proximal circumflex and ostial LAD stents 2017. Myocardial perfusion imaging study from 2021 shows normal perfusion. No evidence of any ischemia or infarction. Echocardiogram from 2021 with normal LVEF at 60%. No wall motion abnormalities. No significant valvular issues. Clinically, no angina. He is on long-term dual antiplatelet therapy. The inferior and anterolateral changes are somewhat seen intermittently. He had that in 2021 but not in 2022. Again seen in 2023. Currently, more prominent than in the past. We will plan on repeat echo/stress test. (2) Essential hypertension: Code(s): I10 - Essential (primary) hypertension Category: Medical Plan: Stable. No changes. (3) Other and unspecified hyperlipidemia: Code(s): E78.5 - Hyperlipidemia, unspecified Category: Medical Plan: On Praluent as well as statins. Most recent LDL 68 mg/dL. Triglycerides 181 mg/dL. (4) Type 2 diabetes mellitus with unspecified complications: Code(s): E11.8 - Type 2 diabetes mellitus with unspecified complications Category: Medical Plan: Last hemoglobin A1c is 7.7%. On Jardiance, glipizide, metformin. Orders: Orders CA echo transthoracic complete Today I25.10 - Atherosclerotic heart disease of [place] coronary artery without angina pectoris CA lexiscan stress w azam Today I25.10 - Atherosclerotic heart disease of [place] coronary artery without angina pectoris NM cardiolite stress test Today I25.10 - Atherosclerotic heart disease of [place] coronary artery without angina pectoris, R07.2 - Precordial pain Coding Level of Care Code Est Pt Level 4 (73097) Complex EM visit Add On G2211 Diagnoses Atherosclerotic cardiovascular disease I25.10 Essential hypertension I10 Other and unspecified hyperlipidemia E78.5 Type 2 diabetes mellitus with unspecified complications E11.8 CPT Codes EKG - CPT: 91219-Hsyktsgzojekkqguw, Complete ([id number])
[2025-03-08 13:56] VITALS: BP 112/60; PULSE 63; BMI 27.0
--- OUTSIDE RECORDS SUMMARY | 2025-03-08 14:42 | XMS_ITS | Clinical Summary ---
Author Organization [facility] Address [address] [place] [address] Care Team Providers Care Natural Gas Plant Supervisor Name Role Phone Unavailable Primary Care Provider [...]
--- OUTSIDE RECORDS SUMMARY | 2025-03-08 14:42 | XMS_ITS ---
Author Organization [employer] Address [address] [facility] 7[address] [place] [address] Care Team Providers Care Electrician Refinery Name Role Phone Audrey Smith MD Primary Care Provide r Rao Mcdowell RN Unavailable [phone] Piedad Tolliver Unavailable [facility] Complex Status:Enrolled (Active) Start date:11/29/2024 Enrollment date:12/06/2024 Enrollment reason:ADT Feed Overview ADT-[facility] ED 11/26/24 Case Team Name Relationship Phone Piedad Tolliver(Responsible Staff) [phone] Continued Care and Services Coordination
--- OUTSIDE RECORDS SUMMARY | 2025-03-08 14:42 | XMS_ITS | Clinical Summary ---
Author Organization 175 [facility] Address [address] [place] [address] Phone Care Team Providers Care Dramatic Coach Name Role Phone Audrey Smith MD Primary [...] not requiring any pain medication. Sarbjit from [employer] is here as well to go over [...] pain med refills today. We used [employer] washhouse worker Leeanna #[phone], Morgan #[phone]. Chronic pain syndrome 09/21/2024 Diabetic neuropathy, painful ([facility] V24, [facility] V28) 09/14/2024 Assessment & Plan (09/14/2024 4:44 PM EST): I reviewed the steps involved in placement of the spinal cord stimulator leads and generator with the patient in conjunction with Sarbjit the patient support representative from [employer] and a telecommunications repairer. I demonstrated the position of each incision [...] hyperglycemia, without long-term current use of insulin ([facility] V24, [facility] V28) 12/04/2022 Stented coronary artery 11/20/2017 Essential hypertension 11/20/2017 Anxiety 11/20/2017 Acquired hypothyroidism 11/20/2017 Immunizations Name Administration Dates Next Due COVID-19 (Moderna/Spikevax) 12yo and older 07/10/2022 Hepatitis B (Ilshhgn-T-Uioqg , Recombivax HB-Adult) 19yo and older 12/07/2020,01/25/2019,12/25/2018 [...] IMPLANT 10/04/2024 Dr. Davenport and Dr. Parsons, [facility] Medical History Medical History Date Comments Diabetes mellitus ([facility] V24, [facility] V28) Hypertension Disease of thyroid gland Hypercholesteremia [...] AM EDT Office Visit Orthopedic Surgery - [place] [address] [phone] Aaron Graves, DPM [address] [address] Health Maintenance Due Date Last Done Comments [...] this topic Medical Devices Implanted Type Area Beam Builder Device Identifier Shelf Expiration Date Model / Serial / Lot Lead Linear Trial St - [id number] - [id number] Implanted:Qty : 1 on 08/24/2024 by Rock Parsons MD at [facility] Neurostim Right: Back [employer] 03/23/2026 [id number] / [id number] / [id number] Lead Linear Trial St - [id number] - [id number] Implanted:Qty : 1 on 08/24/2024 by Rock Parsons MD at [facility] Neurostim Left: Back [employer] 03/15/2026 [id number] / [id number] / [id number] Generator Implant Pulse Ww Wolf - [id number] - [id number] Implanted:Qty : 1 on 10/04/2024 by Cara Davenport MD at [facility] Neurostim Left: Back [employer] [id number] 06/22/2026 [id number] / [id number] / [id number] Powder Surgifoam Absorb Gel - Sna - [id number] Implanted:Qty : 1 on 10/04/2024 by Cara Davenport MD at [facility] [employer] Left: Back [facility] [employer] [id number] 06/28/20261977 / NA / [id number] Linearv Contact Lead Set Implanted:Qty : 1 on 10/04/2024 by Cara Davenport MD at [facility] Left: Back [employer] 08/13/2026 SC-2218 -50 / [id number] / [id number] Linear Contact Lead Kit Implanted:Qty : 1 on 10/04/2024 by Cara Davenport MD at [facility] Left: Back [employer] 08/13/2026 [id number] / [id number] / [id number] Insurance MEDICA[place] - [place] Advance Directives [...] currently active code status orders. Care Teams Dramatic Coach Relationship Specialty Start Date End Date Audrey Smith MD [address] [place] [phone] [facility] - General 07/01/23
== END 2025-03-08 14:17 | disposition home or self-care (01) ==
LOC: HO.HCS 13:26
PROVIDERS: PCP Internal Medicine; Visit Provider Internal Medicine
DX: I25.10 Atherosclerotic heart disease of native coronary artery without angina pectoris (principal); I10 Essential (primary) hypertension; E78.5 Hyperlipidemia, unspecified; E11.8 Type 2 diabetes mellitus with unspecified complications
CPT/HCPCS: 93010; 99214

== ENCOUNTER → 2025-03-08 13:26 | Outpatient (BNVA) | payer MEDICAID, SELFPAY | PROVIDERS: PCP Internal Medicine; Visit Provider Internal Medicine | DX: I25.10 Atherosclerotic heart disease of native coronary artery without angina pectoris (principal); I10 Essential (primary) hypertension; E78.5 Hyperlipidemia, unspecified | CPT/HCPCS: 93005; 99212 ==

== ENCOUNTER 2025-03-17 09:39 | Outpatient (REF) | payer MEDICAID, SELFPAY ==
--- OUTSIDE RECORDS SUMMARY | 2025-03-17 09:15 | XMS_ITS | Encounter Summary ---
Author Organization [employer] Address [address] [facility] [address] 7t [place] [address] Care Team Providers Care Pulper Operator Name Role Phone Audrey Smith MD Primary Care Provide r Rao Mcdowell RN Unavailable [phone] Piedad Tolliver Unavailable Encounter Details Date Type Department Care Team ([facility] st Contact Info) Description 03/17/2025 9:15 AM EDT Office Visit [facility] [address] [place] [address] Audrey Smith MD [address] [place] [address] Essential hypertension (Primary Dx); Type 2 diabetes mellitus with hyperglycemia, without long-term current use of insulin ([facility]); Dietary counseling; Exercise counseling; Depression with anxiety Social History Tobacco Use Types Packs/Day Years [...] Answer Date Recorded Patient Health Questionnaire-9 Score 21 03/17/2025 Patient Health Questionnaire-9 Score 21 03/17/2025 Last PHQ-9: Questionnaire Data Not on file 0 03/17/2025 Housing Stability Answer Date Recorded What is your housing situation today? I have housing today, but I am worried about losing housing in the future 12/06/[address] you li ve. Do you have problems with any of the following? None of the above 12/06/2024 Food Insecurity Answer Date Recorded Within the past 12 months, y ou worried that your food would run out before you got money to buy more: Sometimes True 2024 Within the past 12 months,th e food you bought just didn't last and you didn't have enough money to get more: Sometimes True 12/06/2024 Transportation Answer Date Recorded In the past 12 months, has l ack of transportation kept you from medical appts, meetings, work or from getting things needed for daily living? No 09/03/2024 Intimate Partner Violence Answer Date R ecorded Within the last year, have y ou been afraid of your partner or ex-partner? 2 02/25/2025 Within the last year, have y ou been humiliated or emotionally abused in other ways by your partner or ex-partner? 2 Within the last year, have y ou been kicked, hit, slapped, or otherwise physically hurt by your partner or ex-partner? 2 02/25/2025 Within the last year, have y ou been raped or forced to have any kind of sexual activity by your partner or ex-partner? 2 02/25/2025 Utilities Answer Date Recorded In the past 12 months, has t he electric, gas, oil or water company threatened to shut off services in your home? No 09/03/2024 Depression Answer Date Recorded Patient Health Questionnaire-2 Score 6 03/17/2025 Internet Access Answer Date Recorded Internet Access Q1 Yes 09/03/2024 Internet Access Q2 Not on file 09/03/2024 Sex and Gender Information Value Date Recorded Sex Assigned at Male 05/20/2022 10:33 AM EDT Legal Sex Male 10:33 AM EDT Gender Identity Male 05/20/2022 10:33 AM EDT Sexual Orientation Straight 05/20/2022 10 :33 AM EDT documented as of this encounter Last Filed Vital Signs Vital Sign Reading Time Taken Comments Blood Pressure 110/70 03/17/2025 8:56 AM EDT Pulse 65 03/17/2025 8:56 AM EDT Temperature 36.6 C (97.9 F) 03/17/2025 8:56 AM EDT Respiratory Rate 20 03/17/2025 8:56 AM EDT Oxygen Saturation 99% 03/17/2025 8:56 AM EDT Inhaled Oxygen Concentration - - Weight 76.8 kg (169 lb 6 oz) 03/17/2025 8:56 AM EDT Height 167.6 cm (5' 6 ) 03/17/2025 8:56 AM EDT Body Mass Index 27.34 03/17/2025 8:56 AM EDT documented in this encounter Functional Status * Over the past 2 weeks, how often have you been bothered by any of the following problems? Question Answer Date of Assessment Author Patient Health Questionnaire -2 Score 6 03/17/2025 9:23 AM EDT Helen De Leon MA * Little interest or pleasure in doing things Answer Date of Assessment Author Nearly every day 03/17/2025 9:23 AM EDT Helen De Leon MA * Feeling down, depressed, or hopeless Answer Date of Assessment Author Nearly every day 03/17/2025 9:23 AM EDT Helen De Leon MA * Trouble falling or staying asleep, or sleeping too much Answer Date of Assessment Author Several days 03/17/2025 9:23 AM EDT Chester De Leon MA * Feeling tired or having little energy Answer Date of Assessment Author Nearly every day 03/17/2025 9:23 AM CARYNT Helen De Leon MA * Poor appetite or overeating Answer Date of Assessment Author Several days 03/17/2025 9:23 AM CARYNT Chester De Leon MA * Feeling bad about yourself - or that you are a failure or have let yourself or your family down Answer Date of Assessment Author Nearly every day 03/17/2025 9:23 AM CARYNT Helen De Leon MA * Trouble concentrating on things, such as reading the newspaper or watching television Answer Date of Assessment Author Nearly every day 03/17/2025 9:23 AM CARYNT Helen De Leon MA * Moving or speaking so slowly that other people could have noticed? Or the opposite - being so fidgety or restless that you have been moving around a lot more than usual. Answer Date of Assessment Author Nearly every day 03/17/2025 9:23 AM CARYNT Helen De Leon MA * Thoughts that you would be better off or hurting yourself in some way Answer Date of Assessment Author Several days 03/17/2025 9:23 AM CARYNT Chester De Leon MA * Patient Health Questionnaire-9 Score Answer Date of Assessment Author 03/17/2025 9:23 AM CARYNT Chester De Leon MA * How difficult have these problems made it for you to do your work, take care of things at home, or get along with other people? Answer Date of Assessment Author Somewhat difficult 03/17/2025 9:23 AM EDT Helen De Leon MA * Over the last 2 weeks, how often have you been bothered by any of the following problems? Question Answer Date of Assessment Author Feeling nervous, anxious, or on edge 2 03/17/2025 9:24 AM EDT Helen De Leon MA Not being able to stop or co ntrol worrying 1 03/17/2025 9:24 AM EDT Helen De Leon MA Worrying too much about diff erent things 3 03/17/2025 9:24 AM CARYNT Helen De Leon MA Trouble relaxing 2 03/17/2025 9:24 AM EDT Helen Menendez MA Being so restless that it is hard to sit still 2 03/17/2025 9:24 AM Helen Grover MA Becoming easily annoyed or irritable 2 03/17/2025 9:24 AM EDT Helen De Leon MA Feeling afraid as if somethi ng awful might happen 3 03/17/2025 9:24 AM CARYNT Helen De Leon MA KAMLA-7 Total Score 15 03/17/2025 9:24 AM Helen Grover MA documented as of this encounter Progress Notes * Audrey Holman MD - 03/17/2025 9:15 AM EDT SUBJECTIVE: Owen Hurd is a 54 y.o. year old male who presents for Chronic Disease Management . Acute Concerns: None Social History Social History Narrative Not on file Problem List[1] Type 2 diabetes mellitus with hyperglycemia, without long-term current use of insulin (CMS/HCC) Primary hypertension Irritable bowel syndrome with both constipation and diarrhea Chronic bilateral low back pain without sciatica Diabetic polyneuropathy associated with type 2 diabetes mellitus (CMS/HCC) Acquired hypothyroidism Anxiety Diabetic polyneuropathy (CMS/HCC) Stented coronary artery Polyp of colon Hyperuricemia CAD in [place] artery Benign prostatic hyperplasia with nocturia Exercise-induced angina (CMS/HCC) Essential hypertension Type 2 diabetes mellitus (CMS/HCC) Chronic right hip pain Chronic left shoulder pain Depression with anxiety Family History[2] Review of Systems Constitutional: Negative. HENT: Negative. Respiratory: Negative. Cardiovascular: Negative. OBJECTIVE: Vitals: 03/17/25 0856 BP: 110/70 BP Location: Left arm Patient Position: Sitting BP Cuff Size: Adult Pulse: 65 Resp: 20 Temp: 97.9 ??F (36.6 ??C) TempSrc: Oral SpO2: 99% Weight: 169 lb 6 oz (76.8 kg) Height: 5' 6 (1.676 m) Physical Exam Constitutional: Appearance: Normal appearance. Cardiovascular: Rate and Rhythm: Normal rate and regular rhythm. Pulmonary: Effort: Pulmonary effort is normal. Breath sounds: Normal breath sounds. Abdominal: General: Abdomen is flat. Palpations: Abdomen is soft. Musculoskeletal: Right lower leg: No edema. Left lower leg: No edema. Neurological: Mental Status: He is alert. Follow Up: Follow up in about 3 months (around 06/17/2025) for chronic conditons . Medications Ordered Prior to Encounter[3] Problem List Items Addressed This Visit Type 2 diabetes mellitus with hyperglycemia, without long-term current use of insulin ([facility]) Diabetes is: not controlled - Lab Results Component Value Date HGBA1C 7.7 (A) 03/17/2025 HGBA1C 7.7 (H) 11/19/2024 HGBA1C 7.8 (A) 09/17/2024 - Lab Results Component Value Date MICROALBUR <5.0 06/02/2024 CREATININE 0.83 11/19/2024 -Changes: Today I added Mounjaro 2.5 mg weekly - Diabetic eye exam: Up-to-date - Diabetic foot exam: Up-to-date - Continue lifestyle modifications - Continue current medications - Follow up: 3 months Relevant Medications Tirzepatide (Mounjaro) 2.5 MG/0.5ML solution auto-injector Other Relevant Orders POCT Glucose (Completed) POCT HGB A1C (Completed) Albumin, Random Urine W/Creatinine Essential hypertension - Primary I advise: - Aerobic exercise to reduce BP. Initial goal of 30 min walk 3-5x/week. Increase as tolerated. - low-sodium diet (goal: <2g/day) and heart healthy diet such as DASH to reduce BP and prevent ASCVD. - Home BP monitoring 1-2 x day with goal of <140/90. - Seek immediate medical attention for chest pain, palpitations, SOB, syncope, or sudden changes inmental status. - Do not change or discontinue current prescriptions without first consulting health care provider Depression with anxiety Continue to follow with therapist and psychiatrist Other Visit Diagnoses Dietary counseling Relevant Medications Tirzepatide (Mounjaro) 2.5 MG/0.5ML solution auto-injector Exercise counseling Relevant Medications Tirzepatide (Mounjaro) 2.5 MG/0.5ML solution auto-injector [1] Patient Active Problem List Diagnosis Type 2 diabetes mellitus with hyperglycemia, without long-term current use of insulin (CMS/HCC) Primary hypertension Irritable bowel syndrome with both constipation and diarrhea Chronic bilateral low back pain without sciatica Diabetic polyneuropathy associated with type 2 diabetes mellitus (CMS/HCC) Acquired hypothyroidism Anxiety Diabetic polyneuropathy (CMS/HCC) Stented coronary artery Polyp of colon Hyperuricemia CAD in [place] artery Benign prostatic hyperplasia with nocturia Exercise-induced angina (CMS/HCC) Essential hypertension Type 2 diabetes mellitus (CMS/HCC) Chronic right hip pain Chronic left shoulder pain Depression with anxiety [2] No family history on file. [3] Current Outpatient Medications on File Prior to Visit Medication Sig Dispense Refill aspirin (Aspirin Low Dose) 81 MG EC tablet TAKE 1 TABLET BY MOUTH EVERYDAY AT NOON 90 tablet 1 Blood Glucose Monitoring Suppl (FreeStyle Lite) w/Device kit 1 kit 2 times daily. 1 kit 0 cholecalciferol (D3-1000) 25 MCG (1000 UT) capsule TAKE 1 CAPSULE BY MOUTH EVERYDAY AT NOON 90 capsule 1 clopidogrel (Plavix) 75 MG tablet TAKE 1 TABLET BY MOUTH EVERYDAY AT NOON 90 tablet 1 cyclobenzaprine (Flexeril) 5 MG tablet TAKE 1 TABLET BY MOUTH THREE TIMES DAILY 30 tablet 2 dicyclomine (Bentyl) 20 MG tablet empagliflozin (Jardiance) 25 MG Take 1 tablet (25 mg) by mouth Once per day. 30 tablet 11 famotidine (Pepcid) 40 MG tablet Take 40 mg by mouth in the morning and 40 mg in the evening. fexofenadine (Mila) 180 MG tablet gabapentin (Neurontin) 400 MG capsule TAKE 1 CAPSULE BY MOUTH AT NOON, EVENING, AND BEDTIME 90 capsule 1 glipiZIDE XL (Glucotrol XL) 2.5 MG 24 hr tablet TAKE 1 TABLET BY MOUTH EVERYDAY AT NOON 90 tablet 1 glucose blood (FREESTYLE LITE) test strip TEST BLOOD SUGAR TWICE DAILY 50 strip 11 hydrocortisone (Anusol-HC) 2.5 % rectal cream hydrOXYzine HCl (Atarax) 50 MG tablet imipramine (Tofranil) 10 MG tablet Take 10 mg by mouth at bedtime. levothyroxine (Synthroid, Levoxyl) 25 MCG tablet TAKE 1 TABLET BY MOUTH EVERY MORNING BEFORE BREAKFAST 90 tablet 1 loperamide (Imodium) 2 MG capsule LORazepam (Ativan) 2 MG tablet Take 2 mg by mouth at bedtime. metFORMIN XR (Glucophage-XR) 500 MG 24 hr tablet Take 2 tablets by mouth with evening meal. metoprolol succinate XL (Toprol-XL) 50 MG 24 hr tablet TAKE 1 TABLET BY MOUTH EVERYDAY AT NOON 90 tablet 1 naloxone (Narcan) 4 mg/0.1 mL nasal spray Administer 4 mg into affected nostril(s) if needed for opioid reversal. nitroglycerin (Nitrostat) 0.4 MG SL tablet oxybutynin XL (Ditropan-XL) 5 MG 24 hr tablet Praluent 75 MG/ML injection promethazine (Phenergan) 25 MG tablet risperiDONE (RisperDAL) 4 MG tablet rosuvastatin (Crestor) 20 MG tablet Take 20 mg by mouth at bedtime. sertraline (Zoloft) 100 MG tablet sertraline (Zoloft) 50 MG tablet tamsulosin (Flomax) 0.4 MG 24 hr capsule Take 0.4 mg by mouth at bedtime. testosterone (Testopel) implant Inject under the skin every 3 (three) months. Administered at office ([facility] [place] [place] [facility]) TRUEplus Lancets 33G [facility] TEST BLOOD SUGAR TWICE DAILY 100 each 11 Zenpep [id number] units capsule delayed-release particles capsule Take 1 capsule by mouth in the morning and 1 capsule at noon and 1 capsule in the evening and 1 capsule before bedtime. [DISCONTINUED] Diclofenac Sodium 1 % gel Apply 4 g topically 2 times daily. (Patient not taking: Reported on 02/23/2025) [DISCONTINUED] oxyCODONE (Roxicodone) 5 MG immediate release tablet TAKE 1 TO 2 TABLETS BY MOUTH EVERY 8 HOURS NEEDED FOR SEVERE PAIN (Patient not taking: Reported on 02/23/2025) No current facility-administered medications on file prior to visit. documented in this encounter Miscellaneous Notes * Assessment & Plan Note - Audrey Holman MD - 03/17/2025 10:04 AM EDT Associated Problem(s): Depression with anxiety Continue to follow with therapist and psychiatrist * Assessment & Plan Note - Audrey Holman MD - 03/17/2025 10:03 AM EDT Associated Problem(s): Type 2 diabetes mellitus with hyperglycemia, without long-term current use of insulin ([facility]) Diabetes is: not controlled - Lab Results Component Value Date HGBA1C 7.7 (A) 03/17/2025 HGBA1C 7.7 (H) 11/19/2024 HGBA1C 7.8 (A) 09/17/2024 - Lab Results Component Value Date MICROALBUR <5.0 06/02/2024 CREATININE 0.83 11/19/2024 -Changes: Today I added Mounjaro 2.5 mg weekly - Diabetic eye exam: Up-to-date - Diabetic foot exam: Up-to-date - Continue lifestyle modifications - Continue current medications - Follow up: 3 months * Assessment & Plan Note - Audrey Holman MD - 03/17/2025 10:03 AM EDT Associated Problem(s): Essential hypertension I advise: - Aerobic exercise to reduce BP. Initial goal of 30 min walk 3-5x/week. Increase as tolerated. - low-sodium diet (goal: <2g/day) and heart healthy diet such as DASH to reduce BP and prevent ASCVD. - Home BP monitoring 1-2 x day with goal of <140/90. - Seek immediate medical attention for chest pain, palpitations, SOB, syncope, or sudden changes inmental status. - Do not change or discontinue current prescriptions without first consulting health care provider documented in this encounter Plan of Treatment Upcoming Encounters Date Type Department Care Team (Late st Contact Info) Description 05/05/2025 9:30 AM EDT Immunization [facility] [address] [place] [phone] 12/23/2025 10:00 AM EDT Medication Management [facility] [address] [place] [phone] Janice Candelaria, PharmD [address] [place] [phone] Scheduled Orders Name Type Priority Associated Diagnoses Orde r Schedule Albumin, Random Urine W/Creatinine Lab Routine Type 2 diabetes mellitus with hyperglycemia, without long-term current use of insulin ([facility]) Expected: 03/17/2025 (Approximate), Expires: 03/17/2026 documented as of this encounter Procedures Procedure Name Priority Date/Time Associated Diagnosis Comments POCT GLYCATED HEMOGLOBIN, TOTAL Routine 03/17/2025 9:00 AM EDT Type 2 diabetes mellitus with hyperglycemia, without long-term current use of insulin ([facility]) POCT GLUCOSE Routine 03/17/2025 8:58 AM EDT Type 2 diabetes mellitus with hyperglycemia, without long-term current use of insulin ([facility]) documented in this encounter Results * (ABNORMAL) POCT HGB A1C (03/17/2025 9:00 AM EDT) Hemoglobin A1C 7.7(A) 4.0 - 5.7 % QC Media Lot # [id number] Lot# Expiration Date Blood 03/17/2025 9:00 AM EDT Audrey Holman MD POINT OF CARE TEST ENTER/EDIT ORDERABLES Edited Result - Final * (ABNORMAL) POCT Glucose (03/17/2025 8:58 AM EDT) Glucose Blood, POC 258(A) 60 - 200 mg/dL QC Media Lot # [id number] Lot# Expiration Date Blood Capillary blood specimen / Unknown 03/17/2025 8:58 AM EDT Audrey Holman MD POINT OF CARE TEST EN TER/EDIT ORDERABLES Final Result documented in this encounter Visit Diagnoses Diagnosis Essential hypertension- Primary Unspecified essential hypertension Type 2 diabetes mellitus with hyperglycemia, without long-term current use of insulin ([facility]) Dietary counseling Dietary surveillance and counseling Exercise counseling Depression with anxiety Dysthymic disorder documented in this encounter Additional Health Concerns Assessment Noted Time PHQ-9 Depression Total Score: 21 025 9:23 AM EDT documented as of this encounter Care Teams Pulper Operator Relationship Specialty Start Date End Date Audrey Smith MD [address] [place] [address] PCP - General Family Medicine 11/20/17 Rao Mcdowell, RN [address] [place] [phone] Registered Nurse Family Medicine 11/29/24 Piedad Tolliver 11/29/24 documented as of this encounter
--- OUTSIDE RECORDS SUMMARY | 2025-03-17 10:46 | XMS_ITS | Encounter Summary ---
Author Organization [employer] Address [address] [facility] 7t [place] [address] Care Team Providers Care Back Tender Pulp Drier Name Role Phone Audrey Smith MD Primary Care Provide r Rao Mcdowell RN Unavailable Piedad Tolliver Unavailable Reason for Visit * Reason Comments Med Refill Encounter Details Date Type Department Care Team ([facility] st Contact Info) Description 11/01/2024 Refill [facility] [address] [place] [address] Audrey Smith MD [address] [place] [address] Diabetic polyneuropathy associated with type 2 diabetes mellitus ([facility]/HCC) Social History Tobacco Use Types Packs/Day Years [...] t he electric, gas, oil or water [employer] threatened to shut off services in your [...] Info) Description 05/05/2025 9:30 AM EDT Immunization [facility] [address] [place] [phone] 12/23/2025 10:00 AM EDT Medication Management [facility] [address] [place] [phone] Janice Candelaria, PharmD [address] [place] [address] documented as of this encounter Visit Diagnoses Diagnosis Diabetic polyneuropathy associated with type 2 diabetes mellitus (CMS/HCC) documented in this encounter Additional Health Concerns Assessment Noted Time PHQ-9 Depression Total Score: 0 05/21/20 24 9:38 AM EDT documented as of this encounter Care Teams Back Tender Pulp Drier Relationship Specialty Start Date End Date Audrey Smith MD [address] [place] [phone] PCP - General Family Medicine 11/20/17 Rao Mcdowell, VANE [address] [place] [phone] Registered Nurse Family Medicine 11/29/24 Piedad Tolliver 11/29/24 documented as of this encounter
--- OUTSIDE RECORDS SUMMARY | 2025-03-17 10:46 | XMS_ITS ---
Author Organization [employer] Address [address] [facility] 7t [place] [address] Care Team Providers Care Rag Sorter And Cutter Name Role Phone Audrey Smith MD Primary Care Provide r Rao Mcdowell RN Unavailable [phone] Piedad Tolliver Unavailable CM Complex Status:Enrolled (Active) Start date:11/29/2024 Enrollment date:02/23/2025 Enrollment reason:ADT Feed Overview [facility] ED 11/26/24 Case Team Name Relationship Phone Rao Mcdowell RN(Responsible Staff) Registered [facility] [phone] Continued Care and Services Coordination
--- OUTSIDE RECORDS SUMMARY | 2025-03-17 10:46 | XMS_ITS | Clinical Summary ---
Author Organization [facility] Address [address] [place] [address] Phone Care Team Providers Care Pediatric Anesthesiologist Name Role Phone Audrey Smith MD Primary [...] not requiring any pain medication. Sarbjit from [employer] is here as well to go [...] pain med refills today. We used [employer] cut pressman Leeanna #[id number], Morgan #[id number]. Chronic pain syndrome 09/21/2024 Diabetic neuropathy, painful ([facility] V24, [facility] V28) 09/14/2024 Assessment & Plan (09/14/2024 4:44 PM EST): I reviewed the steps involved in placement of the spinal cord stimulator leads and generator with the patient in conjunction with Sarbjit the account representative from [employer] and a horse rancher. I demonstrated the position of each incision [...] hyperglycemia, without long-term current use of insulin ([facility] V24, [facility] V28) 12/04/2022 Stented coronary artery 11/20/2017 Essential hypertension 11/20/2017 Anxiety 11/20/2017 Acquired hypothyroidism 11/20/2017 Immunizations Name Administration Dates Next Due COVID-19 (Moderna/Spikevax) 12yo and older 07/10/2022 Hepatitis B (Cmpvkkl-D-Xiutr , Recombivax HB-Adult) 19yo and older 12/07/2020,01/25/2019,12/25/2018 [...] IMPLANT 10/04/2024 Dr. Davenport and Dr. Parsons, [facility] Medical History Medical History Date Comments Diabetes mellitus ([facility] V24, [facility] V28) Hypertension Disease of thyroid [...] EDT Office Visit [facility] [place] [address] [place] [address] [place] [phone] Aaron Graves, DPM [address] [place] [phone] Health Maintenance Due Date Last Done Comments [...] this topic Medical Devices Implanted Type Area Cutter Helper Device Identifier Shelf Expiration Date Model / Serial / Lot Lead Linear Trial St - [id number] - [id number] Implanted:Qty : 1 on 08/24/2024 by Rock Parsons MD at [facility] Neurostim Right: Back [employer] 03/23/2026 [id number] / [id number] / [id number] Lead Linear Trial St - [id number] - [id number] Implanted:Qty : 1 on 08/24/2024 by Rock Parsons MD at [facility] Neurostim Left: Back [employer] 03/15/2026 [id number] / [id number] / [id number] Generator Implant Pulse [employer] - [id number] - [id number] Implanted:Qty : 1 on 10/04/2024 by Cara Davenport MD at [facility] Neurostim Left: Back [employer] [id number] 06/22/2026 [id number] / [id number] / [id number] Powder Surgifoam Absorb Gel - [facility] - [id number] Implanted:Qty : 1 on 10/04/2024 by Cara Davenport MD at [facility] [employer] Left: Back [facility] [employer] [id number] 06/28/20261977 / [id number] / [id number] Linearv Contact Lead Set Implanted:Qty : 1 on 10/04/2024 by Cara Davenport MD at [facility] Left: Back [employer] 08/13/2026 [id number] / [id number] / [id number] Linear Contact Lead Kit Implanted:Qty : 1 on 10/04/2024 by Cara Davenport MD at [facility] Left: Back [employer] 08/13/2026 [id number] / [id number] / [id number] Insurance MEDICAID - [place] Advance Directives [...] currently active code status orders. Care Teams Pediatric Anesthesiologist Relationship Specialty Start Date End Date Audrey Smith MD [address] [place] [phone] PCP - General 07/01/23
--- OUTSIDE RECORDS SUMMARY | 2025-03-17 10:46 | XMS_ITS | Clinical Summary ---
Author Organization Formerly [facility] Address [address] [place] [address] Care Team Providers Care Rivet Heater Gas Name Role Phone Unavailable Primary Care Provider [...]
--- OUTSIDE RECORDS SUMMARY | 2025-03-17 10:46 | XMS_ITS ---
Author Organization [email or web address] Address [address] [facility] [address] [place] [address] Care Team Providers Care Deicer Inspector Pneumatic Name Role Phone Audrey Smith MD Primary Care Provide r Rao Mcdowell RN Unavailable [phone] Piedad Tolliver Unavailable [facility] Status:Enrolled (Active) Start date:11/29/2024 Enrollment date:12/06/2024 Enrollment reason:ADT Feed Overview [facility] 11/26/24 Case Team Name Relationship Phone Piedad Tolliver(Responsible Staff) Continued Care and Services Coordination
--- OUTSIDE RECORDS SUMMARY | 2025-03-17 10:46 | XMS_ITS | Encounter Summary ---
Author Organization [employer] Address [address] [facility] [address] [place] [address] Care Team Providers Care Overage Shortage And Damage Clerk Name Role Phone Audrey Smith MD Primary Care Provide r Rao Mcdowell RN Unavailable [phone] Piedad Tolliver Unavailable Reason for Visit * Reason Comments Med Refill Encounter Details Date Type Department Care Team ([facility] st Contact Info) Description 10/22/2024 Refill [facility] [address] [place] [address] Audrey Smith MD [address] [place] [address] Diabetic polyneuropathy associated with type 2 diabetes mellitus ([facility]/HCC) Social History Tobacco Use Types Packs/Day Years [...] t he electric, gas, oil or water [employer] threatened to shut off services in your [...] Info) Description 05/05/2025 9:30 AM EDT Immunization [facility] [address] [place] [phone] 12/23/2025 10:00 AM EDT Medication Management [facility] [address] [place] [phone] Janice Candelaria, PharmD [address] [place] [address] documented as of this encounter Visit Diagnoses Diagnosis Diabetic polyneuropathy associated with type 2 diabetes mellitus (CMS/HCC) documented in this encounter Additional Health Concerns Assessment Noted Time PHQ-9 Depression Total Score: 0 05/21/20 24 9:38 AM EDT documented as of this encounter Care Teams Overage Shortage And Damage Clerk Relationship Specialty Start Date End Date Audrey Smith MD [address] [place] [phone] PCP - General Family Medicine 11/20/17 Rao Mcdowell, VANE [address] [place] [phone] Registered Nurse Family Medicine 11/29/24 Piedad Tolliver 11/29/24 documented as of this encounter
--- OUTSIDE RECORDS SUMMARY | 2025-03-17 10:47 | XMS_ITS | Encounter Summary ---
Author Organization [employer] Address [address] [facility] [address] [place] [address] Care Team Providers Care Cooking Appliance Repair Technician Name Role Phone Audrey Smith MD Primary Care Provide r Rao Mcdowell RN Unavailable [phone] Piedad Tolliver Unavailable Reason for Visit * Reason Comments Med Refill Encounter Details Date Type Department Care Team ([facility] Contact Info) Description 01/10/[address] [facility] [address] [place] [phone] NameSameer MD [address] [place] [phone] Social History Tobacco Use Types Packs/Day Years [...] Upcoming Encounters Date Type Department Care Team ([facility] Contact Info) Description 05/05/2025 9:30 AM EDT Immunization [facility] [address] [place] [address] [phone] 12/23/2025 10:00 AM EDT Medication Management [facility] [address] [place] [phone] Janice Candelaria PharmD [address] [place] [address] documented as of this encounter Visit Diagnoses Not on filedocumented in this encounter Care Teams Cooking Appliance Repair Technician Relationship Specialty Start Date End Date Audrey Smith MD [address] [place], [place] [phone] PCP - General Family Medicine 11/20/17 Rao Mcdowell, VANE [address] [place] [address] Registered Nurse Family Medicine 11/29/24 Piedad Tolliver 11/29/24 documented as of this encounter
--- OUTSIDE RECORDS SUMMARY | 2025-03-17 10:47 | XMS_ITS | Clinical Summary ---
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 Tractor Mechanic Name Role Phone Audrey Smith MD Primary Care Provide r Rao Mcdowell RN Unavailable [phone] Piedad Tolliver Unavailable Allergies No known active allergies Medications Praluent 75 MG/ML injection 023 Active dicyclomine (Bentyl) 20 MG tablet 023 Active hydrOXYzine HCl (Atarax) 50 MG tablet 023 Active hydrocortisone (Anusol-HC) 2.5 % rectal cream 023 Active loperamide (Imodium) 2 MG capsule 023 Active nitroglycerin (Nitrostat) 0.4 MG SL tablet 023 Active oxybutynin XL (Ditropan-XL) 5 MG 24 hr tablet 023 Active Zenpep 5000-20081 units capsule delayed-release particles capsule Take 1 capsule by mouth in the morning and 1 capsule at noon and 1 capsule in the evening and 1 capsule before bedtime. 023 Active promethazine (Phenergan) 25 MG tablet 023 Active risperiDONE (RisperDAL) 4 MG tablet 023 Active rosuvastatin (Crestor) 20 MG tablet Take 20 mg by mouth at bedtime. 023 Active sertraline (Zoloft) 50 MG tablet 023 Active tamsulosin (Flomax) 0.4 MG 24 hr capsule Take 0.4 mg by mouth at bedtime. 023 Active Blood Glucose Monitoring Suppl (FreeStyle Lite) w/Device kitIndications:Ty pe 2 diabetes mellitus with hyperglycemia, without long-term current use of insulin ([facility]) 1 kit 2 times daily. 1 kit 024 Active sertraline (Zoloft) 100 MG tablet 024 Active imipramine (Tofranil) 10 MG tablet Take 10 mg by mouth at bedtime. 024 Active LORazepam (Ativan) 2 MG tablet Take 2 mg by mouth at bedtime. 024 Active fexofenadine (Mila) 180 MG tablet Active famotidine (Pepcid) 40 MG tablet Take 40 mg by mouth in the morning and 40 mg in the evening. Active cyclobenzaprine (Flexeril) 5 MG tabletIndications :Muscle spasm TAKE 1 TABLET BY MOUTH THREE TIMES DAILY 30 tablet 2 025 Active naloxone (Narcan) 4 mg/0.1 mL nasal spray Administer 4 mg into affected nostril(s) if needed for opioid reversal. 025 Active testosterone (Testopel) implant Inject under the skin every 3 (three) months. Administered at office ([facility]) Active clopidogrel (Plavix) 75 MG tabletIndications :Coronary artery disease involving [facility] coronary artery of [facility] heart, unspecified whether angina present TAKE 1 TABLET BY MOUTH EVERYDAY AT NOON 90 tablet 1 025 Active aspirin (Aspirin Low Dose) 81 MG EC tabletIndications :Coronary artery disease involving [facility] [place] coronary artery of [facility] heart, unspecified whether angina present TAKE 1 TABLET BY MOUTH EVERYDAY AT NOON 90 tablet 1 025 Active cholecalciferol (D3-1000) 25 MCG (1000 UT) capsuleIndication s:Vitamin D deficiency TAKE 1 CAPSULE BY MOUTH EVERYDAY AT NOON 90 capsule 1 025 Active levothyroxine (Synthroid, Levoxyl) 25 MCG tabletIndications :Hypothyroidism, unspecified type TAKE 1 TABLET BY MOUTH EVERY MORNING BEFORE BREAKFAST 90 tablet 1 025 Active metoprolol succinate XL (Toprol-XL) 50 MG 24 hr tabletIndications :Coronary artery disease involving [facility] [place] coronary artery of [facility] heart, unspecified whether angina present TAKE 1 TABLET BY MOUTH EVERYDAY AT NOON 90 tablet 1 05/06/2 025 Active empagliflozin (Jardiance) 25 MGIndications:Typ e 2 diabetes mellitus with hyperglycemia, without long-term current use of insulin ([facility]) Take 1 tablet (25 mg) by mouth Once per day. 30 tablet 025 2025 Active metFORMIN XR (Glucophage-XR) 500 MG 24 hr tablet Take 2 tablets by mouth with evening meal. Active glipiZIDE XL (Glucotrol XL) 2.5 MG 24 hr tabletIndications :Type 2 diabetes mellitus without complication, unspecified whether snf insulin use ([facility]) TAKE 1 TABLET BY MOUTH EVERYDAY AT NOON 90 tablet 1 Active glucose blood (FREESTYLE LITE) test stripIndications: Type 2 diabetes mellitus with hyperglycemia, without long-term current use of insulin ([facility]) TEST BLOOD SUGAR TWICE DAILY 50 strip Active TRUEplus Lancets 33G miscIndications:T ype 2 diabetes mellitus with other specified complication, without long-term current use of insulin ([facility]) TEST BLOOD SUGAR TWICE DAILY 100 each 025 Active gabapentin (Neurontin) 400 MG capsuleIndication s:Diabetic polyneuropathy associated with type 2 diabetes mellitus ([facility]) TAKE 1 CAPSULE BY MOUTH AT NOON, EVENING, AND BEDTIME 90 capsule 1 025 Active Tirzepatide (Mounjaro) 2.5 MG/0.5ML solution auto-injectorIndi cations:Type 2 diabetes mellitus with hyperglycemia, without long-term current use of insulin ([facility]) Inject 2.5 mg under the skin 1 (one) time per week. 2 mL 2 Active Diclofenac Sodium 1 % gel Apply 4 g topically 2 times daily. 024 2024 Discontinued oxyCODONE (Roxicodone) 5 MG immediate release tablet TAKE 1 TO 2 TABLETS BY MOUTH EVERY 8 HOURS NEEDED FOR SEVERE PAIN 025 2024 Discontinued gabapentin (Neurontin) 400 MG capsuleIndication s:Diabetic polyneuropathy associated with type 2 diabetes mellitus ([facility]) Take 1 capsule by mouth at noon, evening, and bedtime 90 capsule 1 025 2024 Discontinued Active Problems Problem Noted Date Diagnosed Date Depression with anxiety 03/17/2025 Assessment & Plan (03/17/2025 10:04 AM EDT): Continue to follow with therapist and psychiatrist Chronic right hip pain 02/26/2024 Assessment & [...] use of insulin 12/04/2022 Assessment & Plan (03/17/2025 10:03 AM EDT): Diabetes is: not controlled - Lab Results [...] Follow up: 3 months Assessment & Plan (12/15/2024 1:32 PM EDT): Diabetes is: not controlled - Lab Results Component Value Date HGBA1C 7.7 (H) 11/19/2024 HGBA1C 7.8 (A) 09/17/2024 HGBA1C 7.3 (A) 05/21/2024 - Lab Results Component Value Date MICROALBUR <5.0 06/02/2024 CREATININE 0.83 11/19/2024 -Changes: I increase his jardiance to 25mg daily and change his metformin to ER - Diabetic eye exam:up to date - Diabetic foot exam:pending - Continue lifestyle modifications - Continue current medications - Follow up: 3 months Assessment & Plan (09/17/2024 12:35 PM EST): Diabetes is: not controlled - Lab Results Component Value Date HGBA1C 7.8 (A) 09/17/2024 HGBA1C 7.3 (A) 05/21/2024 HGBA1C 7.1 (A) 02/26/2024 - Lab Results Component Value Date MICROALBUR <5.0 06/02/2024 CREATININE 0.92 06/02/2024 -Changes: Patient tells me she he was out of [place] because of insurance and just started on [...] of colon 11/20/2017 Hyperuricemia 11/20/[address] [place] artery 11/20/2017 Benign prostatic hyperplasia with nocturia 11/20 Exercise-induced angina 11/20/2017 Essential hypertension 11/20/2017 Assessment & Plan (03/17/2025 10:03 AM EDT): I advise: - Aerobic exercise to reduce [...] consulting health care provider Assessment & Plan (12/15/2024 1:33 PM EDT): I advised: - Aerobic exercise to reduce BP. Initial [...] consulting health care provider Assessment & Plan (09/17/2024 12:34 PM EST): [...] will continue with same medications, I extensibly budget counselor him about diabetic diet and let him know his glucose also will likely go down after back injections wears out - Encounters Date Type Department Care Team Description 03/17/2025 9:15 AM EDT Office Visit [address] [address] Audrey Smith MD Essential hypertension (Primary Dx); Type 2 diabetes mellitus with hyperglycemia, without long-term current use of insulin ([facility]); Dietary counseling; Exercise counseling; Depression with anxiety 03/17/2025 Travel 03/16/2025 Telephone [facility] [address] [place] [phone] Audrey Smith MD chart prep 03/10/2025 11:00 AM EDT Office Visit [facility] [address] [place] [phone] Presbyopia of both eyes (Primary Dx) 03/10/2025 Patient Outreach [address] [address] Audrey Smith MD Pre-visit Planning (SDOH screening completed on 12/06/2024) 02/25/2025 Plan of Care Documentation [address] [address] 02/23/2025 Patient Outreach [address] [address] Audrey Smith MD Care Management (C3- Initial assessment/enrollment ) 02/22/2025 Patient Outreach [address] [address] Audrey Smith MD Care Coordination ([facility] Piedad Tolliver telephone call outreach) 02/19/[address] [address] Audrey Smith MD Diabetic polyneuropathy associated with type 2 diabetes mellitus ([facility]) 02/11/2025 Patient Outreach [address] [address] Audrey Smith MD Care Coordination ([facility] Piedad Tolliver telephone call outreach ) 02/03/2025 Orders Only GENERIC EXTERNAL DATA DEPARTMENT Provider, Generic External Data 01/28/2025 Patient Outreach [address] [phone] Audrey Smith MD Care Coordination (////) 01/27/2025 Refill [facility] [address] [place], [place] [phone] Audrey Smith MD Type 2 diabetes mellitus with other specified complication, without long-term current use of insulin ([facility]) 01/17/2025 Refill [facility] [address] [place] [address] Audrey Smith MD Type 2 diabetes mellitus without complication, unspecified whether termite control servicer insulin use ([facility]); Type 2 diabetes mellitus with hyperglycemia, without long-term current use of insulin ([facility]) 01/15/2025 Refill [facility] [address] [place] [address] Audrey Smith MD Type 2 diabetes mellitus with hyperglycemia, without long-term current use of insulin ([facility]) 01/11/2025 1:30 PM EDT Office Visit [facility] [address] [place] [address] Gm, Ailyn, OD Diabetes type 2, no ocular involvement ([facility]) (Primary Dx); Tortuous retinal veins; 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; Meibomian gland disease, unspecified laterality; Combined forms of age-related cataract of both eyes; Presbyopia of both eyes 01/11/2025 Travel 01/10/2025 Patient Outreach [facility] [address] [place] [phone] Audrey Smith MD 01/07/2025 Patient Outreach [facility] [address] [place] [address] Audrey Smith MD 01/07/2025 Patient Outreach [facility] [address] [place] [phone] Audrey Smith MD 12/21/2024 Refill [facility] [address] [place] [phone] Юлия Anguiano, Chiki Diabetic polyneuropathy associated with type 2 diabetes mellitus ([facility]) 12/21/2024 Telephone [facility] [address] [place] [phone] Юлия Anguiano, Chiki Care Coordination 12/21/2024 Travel 12/17/2024 Refill [facility] [address] [place] [address] Inna, Subha, PERINATAL SOCIAL WORKER Diabetic polyneuropathy associated with type 2 diabetes mellitus ([facility]) 12/16/2024 Travel 12/15/2024 9:15 AM EDT Office Visit [facility] [address] [place] [address] Audrey Smith MD Essential hypertension (Primary Dx); Type 2 diabetes mellitus with hyperglycemia, without long-term current use of insulin ([facility]) 12/15/2024 Travel from Last 3 Months Immunizations Immunization Administration Dates Next Due Hep A, Adult [...] Mass Index 27.34 03/17/2025 8:56 AM EDT Plan of Treatment Upcoming Encounters Date Type Department Care Team (Late st Contact Info) Description 05/05/2025 9:30 AM EDT Immunization [address] [address] 12/23/2025 10:00 AM EDT Medication Management [facility] [address] [place] [phone] Janice Candelaria, PharmD [address] [place] [phone] Health Maintenance Due Date Last Done Comments CT Colonography 1969 FIT DNA/Cologuard 1969 FIT 1969 FOBT 1970 Sigmoidoscopy 1969 Diabetes: Foot Exam 11/07/1979 Hepatitis C Screening 11/07/1987 Colonoscopy 05/22/2023 05/22/2021 Colorectal Cancer Screening 05/22/2023 Influenza Vaccine (#1) 2025 , 05/16/2023, 04/18/2022, Additional history exists Hepatitis A Vaccines (2 of 2 - Risk 2-dose series) 05/05/2025 11/03/2024 Diabetes: Urine Protein Screening 06/02/2025 06/02/2024, 12/26/2022, 12/07/2021, Additional history exists Diabetes: Hemoglobin A1C 06/17/2025 025, 11/19/2024, 09/17/2024, Additional history exists Lipid Panel 08/25/2025 08/25/2024, 05/21, 12/03/2023, Additional history exists Depression Monitoring 09/17/2025 03/17/2025, 025 SDOH Screening 12/06/2025 12/06/2024 Alcohol/Substance Use Screening 03/17/2026 03/17/2025 Disability Screening 03/17/2026 03/17/2025 Tobacco Screening 03/17/2026 03/17/2025 Eye Exam 01/11/2027 01/11/2025, 12/20, 01/11/2025, Additional history exists DTaP/Tdap/Td Vaccines (2 - Td or Tdap) 03/16/2028 03/16/2018 RSV Patients and Patients Aged 60 years or older (1 - 1-dose 75+ series) 2044 HIV Screening Completed 10/01/2019 Hepatitis B Vaccines Completed 12/07/2020, 01/25/2019, 12/25/2018 Zoster Vaccines Completed 08/09/2021, 05/30/2021 Pneumococcal Vaccine: 50+ Years Completed 10/22/2023 COVID-19 Vaccine Completed 05/21/2024, 06/2024, 07/10/2022, Additional history exists HIB Vaccines Aged Out [...] hyperglycemia, without long-term current use of insulin ([facility]) POCT GLUCOSE Routine 03/17/2025 8:58 AM EDT Type 2 diabetes mellitus with hyperglycemia, without long-term current use of insulin (CMS/HCC) TESTOSTERONE, TOTAL, MALES (ADULT), IA Routine 02/03/2025 7:23 AM EDT FUNDUS PHOTOS - OU - BOTH EYES Routine 01/11/2025 1:30 PM EDT Tortuous retinal veins US ABDOMEN COMPLETE Routine 01/04/2025 8 :06 AM EDT POCT GLUCOSE Routine 12/15/2024 8:59 AM EDT Type 2 diabetes mellitus with hyperglycemia, without long-term current use of insulin (CMS/HCC) LIPID PANEL, STANDARD Routine 08/25/2024 7:10 AM EST ALBUMIN, RANDOM URINE W/CREATININE Routine 06/02/2024 8:55 AM EST Type 2 diabetes mellitus with hyperglycemia, without long-term current use of insulin ([facility]) HM COLONOSCOPY Routine 05/22/2021 ZZZ HISTORICAL HIV AB/AG Routine 10/01/2019 10:28 AM EDT from Last 3 Months or Most Recently Relevant to Health Maintenance Results * (ABNORMAL) POCT HGB A1C (03/17/2025 9:00 AM EDT) Pathologist [facility] Hemoglobin A1C 7.7(A) 4.0 - 5.7 % QC Media Lot # [id number] Lot# Expiration Date [id number] Blood 03/17/2025 9:00 AM EDT Audrey Holman MD POINT OF CARE TEST ENTER/EDIT ORDERABLES Edited Result - Final * (ABNORMAL) POCT Glucose (03/17/2025 8:58 AM EDT) Only the most recent of2 resultswithin the time period is included. Pathologist [facility] Glucose Blood, POC 258(A) 60 - 200 mg/dL QC Media Lot # [id number] Lot# Expiration Date [id number] Blood Capillary blood specimen / Unknown 03/17/2025 8:58 AM EDT Audrey Holman MD POINT OF CARE TEST EN TER/EDIT ORDERABLES Final Result * Testosterone, Total, males (Adult), IA (02/03/2025 7:23 AM EDT) Pathologist [facility] Testosterone, Total 447 250 - 1100 ng/dL [facility] Comment:For additional infor gunnar, please refer tohttp://education.[employer]/faq/NvemfDltdjxnzqgtvGBVYLVXIT157(This link is being provided for informational/educational purposes only.)This test was developed and its analytical performancecharacteristics have been determined by [employer] [place], [place]. It hasnot been cleared or approved by the U.S. Food and DrugAdministration. This assay has been validated pursuantto the CLIA regulations and is used for clinicalpurposes.THIS TEST WAS PERFORMED AT:[employer]/[facility] [place] [id number] FU MD,PHD 02/03/2025 7:23 AM EDT 02/03/2025 7:23 AM EDT us Generic External Data Provider LAB BLOOD ORDERAB LES Final Result [facility] [address] [place] [address] [phone] * Fundus Photos - OU - Both Eyes (01/11/2025 1:30 PM EDT) Narrative Ailyn Worrell, OD - 01/28/2025 2:36 PM EDT Images from the original result were not included. Right Eye Progression has been stable. Disc findings include normal observations. Macula findings include normal observations. Vessel findings include tortuous vessels. Periphery findings include normal observations. Left Eye Progression has been stable. Disc findings include normal observations. Macula findings include normal observations. Vessel findings include tortuous vessels. 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 Notes Assessment and Plan Mild retinal vessel tortuosity in both eyes. 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 us Ailyn Gm OD OPHTH PHOTOGRAPHY Final Resul t * US Abdomen Complete (01/04/2025 8:06 AM EDT) Anatomical Region Laterality Modality Abdomen Ultrasound 01/04/2025 8:06 AM EDT Narrative 01/04/2025 8:34 AM EDT [address] [address] Ultrasound Report Signed Patient: Owen Montano MR#: [id number] : 1970 Acct:[id number] Age/Sex: 54 / M ADM Date: 01/04/25 Loc: HO.US Attending Dr: Mary Kay ORTEGA Ordering Physician: Mary Kay Avalos Date of Service: 01/04/25 Procedure(s): US abdomen complete Accession Number(s): [id number] cc: Audrey Smith MD; Mary Kay Avalos EXAMINATION: US ABDOMEN COMPLETE CLINICAL INFORMATION: Nonalcoholic steatohepatitis.. COMPARISON: August 12, 2022. Correlated to CT dated February 21, 2023. TECHNIQUE: Real-time ultrasound of the abdomen using grayscale and color technique. FINDINGS: PANCREAS: No peripancreatic fluid collections. ABDOMINAL AORTA: The proximal, mid, and distal segments are normal in caliber. INFERIOR VENA CAVA: Visualized portions are normal. LIVER: Liver measures 17 cm. Increased echotexture. No gross solid or cystic lesion detected by the technologist. No gross nodular surface. No intrahepatic biliary ductal dilatation. GALLBLADDER: Fluid-filled. No pericholecystic fluid collection or gallbladder wall thickening. COMMON BILE DUCT: 3 mm. RIGHT KIDNEY: 10 cm. Normal echotexture. No gross hydronephrosis. No gross solid or cystic lesion detected by the technologist. . LEFT KIDNEY: 11 cm. Normal echotexture. No hydronephrosis. No gross solid or cystic lesion detected by the technologist. SPLEEN: 11 cm. No focal lesion. FREE FLUID: None. US/US abdomen complete IMPRESSION: Hepatomegaly, mild. Hepatic steatosis. No cholelithiasis. No hydronephrosis. No ascites. Electronically signed by: Rafal Curran MD 01/04/2025 08:31 AM EDT Dictated By: Rafal Martin MD Signed By: <Electronically signed by Rafal Ghosh MD in OV> 01/04/25830 DD/ 5 TD/TT: 01/04/25816 Instructional Support Assistant: Procedure Note Donotuseinterpreter, Image - 01/04/2025 [place] [address] Ultrasound Report Signed Patient: Owen MontanoMR#: [id number] : 1970Acct:[id number] Age/Sex: 54 / MADM Date: 01/04/25 Loc: HO.US Attending Dr: Mary Kay ORTEGA Ordering Physician: Mary Kay Avalos Date of Service: 01/04/25 Procedure(s): US abdomen complete Accession Number(s): [id number] cc: Audrey Smith MD; Mary Kay Avalos EXAMINATION: US ABDOMEN COMPLETE CLINICAL INFORMATION: Nonalcoholic steatohepatitis.. COMPARISON: August 12, 2022. Correlated to CT dated February 21, 2023. TECHNIQUE: Real-time ultrasound of the abdomen using grayscale and color technique. FINDINGS: PANCREAS: No peripancreatic fluid collections. ABDOMINAL AORTA: The proximal, mid, and distal segments are normal in caliber. INFERIOR VENA CAVA: Visualized portions are normal. LIVER: Liver measures 17 cm. Increased echotexture. No gross solid or cystic lesion detected by the technologist. No gross nodular surface. No intrahepatic biliary ductal dilatation. GALLBLADDER: Fluid-filled. No pericholecystic fluid collection or gallbladder wall thickening. COMMON BILE DUCT: 3 mm. RIGHT KIDNEY: 10 cm. Normal echotexture. No gross hydronephrosis. No gross solid or cystic lesion detected by the technologist. . LEFT KIDNEY: 11 cm. Normal echotexture. No hydronephrosis. No gross solid or cystic lesion detected by the technologist. SPLEEN: 11 cm. No focal lesion. FREE FLUID: None. US/US abdomen complete IMPRESSION: Hepatomegaly, mild. Hepatic steatosis. No cholelithiasis. No hydronephrosis. No ascites. Electronically signed by: Rafal Curran MD 01/04/2025 08:31 AM EDT RP Dictated By: Rafal Martin MD Signed By: <Electronically signed by Rafal Ghosh MDin OV> 01/04/25830 DD/ 5 TD/TT: 01/04/25816 Instructional Support Assistant: us [facility] External Provider IMG US PROCEDURES Final Result * (ABNORMAL) Lipid Panel, Standard (08/25/2024 7:10 AM EST) Triglycerides 181(H) <150 mg/dL [facility] Comment:Desirable Triglyceri de: less than 150 mg/dLBorderline High Triglyceride 150-199 mg/dLHigh Triglyceride: 200-499 mg/dLVery High Triglyceride: greater than or equal to 5OO mg/dL Cholesterol 142 <200 mg/dL [facility] Comment:Desirable Cholestero l: less than 200 mg/dLBorderline High Cholesterol: 200-239 mg/dLHigh Cholesterol: greater than 239 mg/dL LDL Cholesterol Calculated 68 <100 mg/dL [facility] Comment:Desirable LDL: less than 100 mg/dLNear Optimal/Above Optimal LDL: 110- 129 mg/dLBorderline High LDL: 130-159 mg/dLHigh LDL: 160-189 mg/dLVery High LDL: greater than or equal to 190 mg/dL HDL Cholesterol 38(L) >40 mg/dL [facility] Comment:Desirable HDL: great er than 40 mg/dL Note: This HDL assay may give artificially low results in patients with liver disease. 08/25/2024 7:10 AM EST 08/25/2024 7:10 AM EST Generic External Data Provider LAB BLOOD ORDERAB LES Final Result Performing Organization Address [facility] Co de Phone Number [facility] [address] [place] [phone] * Albumin, Random Urine W/Creatinine (06/02/2024 8:55 AM EST) Creatinine, Urine 107.27 mg/dL [facility] Microalbumin Urine <5.0 mg/L [facility] Microalbum Creatinine Ratio Ur TNP <30 ug/mg cr [facility] Comment:Unable to calculate albumin/creatinine ratio due to lowmicroalbumin or creatinine result. Urine (Urine, Random) 06/02/2024 8:55 AM EST 06/02/2024 10:47 AM EST us Audrey Holman MD LAB URINE ORDERABLES Final Result Performing Organization Address [facility] Co de Phone Number [facility] [address] [place] [phone] * Colonoscopy (05/22/2021) Historical Provider HEALTH MAINTENANCE Final Result * HIV AB/AG (10/01/2019 10:28 AM EDT) HIV AG/AB NONREACTIVE [facility] Comment: HIV-1 p24 Ag and/or HIV-1/HIV-2 Ab not detected. A test result that is nonreactive does not exclude the possibility of exposure to or infection with HIV-1 and/or HIV-2. Nonreactive results in this assay for individuals with prior exposure to HIV-1 and/or HIV-2 may be due to antigen and antibody levels that are below the limit of detection of this assay. The [employer] HIV Ag/Ab Combo assay result and supplemental assay results should be interpreted in conjunction with the patient's clinical presentation, history and other laboratory results. If the results are inconsistent with clinical evidence, additional testing is suggested to confirm the result. 10/01/2019 10:2 8 AM EDT Audrey Holman MD HISTORICAL/NON ORDERA BLE LABS Final Result [facility] [address] from Last 3 Months or Most Recently Relevant to Health Maintenance Insurance [employer] C3 Care Teams Tractor Mechanic Relationship Specialty Start Date End Date Audrey Smith MD [address] [place] [address] PCP - General Family Medicine 11/20/17 Rao Mcdowell, RN [address] [place] [address] MARISEL Heredia [address] Registered Nurse Family Medicine 11/29/24 Piedad Tolliver 11/29/24
--- OUTSIDE RECORDS SUMMARY | 2025-03-17 10:47 | XMS_ITS | Encounter Summary ---
Author Organization [employer] Address [address] [facility] 7t [place] [address] Care Team Providers Care Communications Department Chairperson Name Role Phone Audrey Smith MD Primary Care Provide r Rao Mcdowell RN Unavailable [phone] Piedad Tolliver Unavailable Reason for Visit * Reason Onset Date Comments chart prep 03/16/2025 Encounter Details Date Type Department Care Team ([facility] st Contact Info) Description 03/16/2025 Telephone [facility]INE [address] [place] [address] Audrey Smith MD 230 [place] [address] chart prep Social History Tobacco Use Types Packs/Day Years [...] encounter Miscellaneous Notes * Telephone Encounter - Cain Loaiza MA - 03/16/2025 9:32 AM EDT Chart Prep Labs: done Images: done Referrals: complete Vaccines due: Flu and Hep A Screenings: colonoscopy and foot exam Overdue care gaps: A1c, Glucose, SBIRT, PHQ-9, and KAMLA-7 documented in this encounter Plan of Treatment Upcoming Encounters Date Type Department Care Team (Late st Contact Info) Description 05/05/2025 9:30 AM EDT Immunization [address] [address] 12/23/2025 10:00 AM EDT Medication Management [address] [address] Janice Candelaria, PharmD [address] [place] [address] documented as of this encounter Visit Diagnoses Not on filedocumented in this encounter Additional Health Concerns Assessment Noted Time PHQ-9 Depression Total Score: 23 025 10:42 AM EDT documented as of this encounter Care Teams Communications Department Chairperson Relationship Specialty Start Date End Date Audrey Smith MD [address] [place] [address] PCP - General Family Medicine 11/20/17 Rao Mcdowell, VANE [address] [place] [address] Registered Nurse Family Medicine 11/29/24 Piedad Tolliver 11/29/24 documented as of this encounter
--- OUTSIDE RECORDS SUMMARY | 2025-03-17 10:47 | XMS_ITS | Encounter Summary ---
Author Organization [employer] Address [address] [facility] [address] 7t [place] [address] Care Team Providers Care Automotive Sales Professional Name Role Phone Audrey Smith MD Primary Care Provide r Rao Mcdowell RN Unavailable [phone] Piedad Tolliver Unavailable Encounter Details Date Type Department Care Team (Latest Contact Info) Description 03/17/2025 Travel Social History Tobacco Use Types Packs/Day [...] AM EDT documented as of this encounter Functional Status * Over the [...] AM CARYNT Helen De Leon MA * Feeling down, depressed, or hopeless Answer Date of Assessment Author Nearly every day 03/17/2025 9:23 AM CARYNT Helen De Leon MA * Trouble falling or staying asleep, or sleeping too much Answer Date of Assessment Author Several days 03/17/2025 9:23 AM [place] Grover MA * Feeling tired or having little energy Answer Date of Assessment Author Nearly every day 03/17/2025 9:23 AM Helen Grover MA * Poor appetite or overeating Answer Date of Assessment Author Several days 03/17/2025 9:23 AM [place] Grover MA * Feeling bad about yourself - or that you are a failure or have let yourself or your family down Answer Date of Assessment Author Nearly every day 03/17/2025 9:23 AM Helen Grover MA * Trouble concentrating on things, such as reading the newspaper or watching television Answer Date of Assessment Author Nearly every day 03/17/2025 9:23 AM Helen Grover MA * Moving or speaking so slowly that other people could have noticed? Or the opposite - being so fidgety or restless that you have been moving around a lot more than usual. Answer Date of Assessment Author Nearly every day 03/17/2025 9:23 AM Helen Grover MA * Thoughts that you would be better off or hurting yourself in some way Answer Date of Assessment Author Several days 03/17/2025 9:23 AM [place] Grover MA * Patient Health Questionnaire-9 Score Answer Date of Assessment Author 21 03/17/2025 9:23 AM [place] Grover MA * How difficult have these problems made it for you to do your work, take care of things at home, or get along with other people? Answer Date of Assessment Author Somewhat difficult 03/17/2025 9:23 AM Helen Grover MA * Over the last 2 weeks, how often have you been bothered by any of the following problems? Question Answer Date of Assessment Author Feeling nervous, anxious, or on edge 2 03/17/2025 9:24 AM Helen Grover MA Not being able to stop or co ntrol worrying 1 03/17/2025 9:24 AM Helen Grover MA Worrying too much about diff erent things 3 03/17/2025 9:24 AM Helen Grover MA Trouble relaxing 2 03/17/2025 9:24 AM EDT Helen Menendez MA Being so restless that it is hard to sit still 2 03/17/2025 9:24 AM EDT Helen De Leon MA Becoming easily annoyed or irritable 2 03/17/2025 9:24 AM EDT Helen De Leon MA Feeling afraid as if somethi ng awful might happen 3 03/17/2025 9:24 AM EDT Helen De Leon MA KAMLA-7 Total Score 15 03/17/2025 9:24 AM EDT Helen De Leon MA documented as of this encounter Plan of Treatment Upcoming Encounters Date Type Department Care Team (Late st Contact Info) Description 05/05/2025 9:30 AM EDT Immunization [address] [address] 12/23/2025 10:00 AM EDT Medication Management [address] [address] Janice Candelaria PharmD [address] [place] [address] documented as of this encounter Visit Diagnoses Not on filedocumented in this encounter Additional Health Concerns Assessment Noted Time PHQ-9 Depression Total Score: 21 025 9:23 AM EDT documented as of this encounter Care Teams Automotive Sales Professional Relationship Specialty Start Date End Date Audrey Smith MD 230 [place] [address] PCP - General Family Medicine 11/20/17 Rao Mcdowell, RN [address] [place] [address] Registered Nurse Family Medicine 11/29/24 Piedad Tolliver 11/29/24 documented as of this encounter
--- OUTSIDE RECORDS SUMMARY | 2025-03-17 10:47 | XMS_ITS | Encounter Summary ---
Author Organization [employer] Address 75 [facility] 7t [place] [address] Care Team Providers Care Dance Director Name Role Phone Audrey Smith MD Primary Care Provide r Rao Mcdowell RN Unavailable [phone] Piedad Tolliver Unavailable Reason for Visit * Reason Comments Med Refill Encounter Details Date Type Department Care Team (Late Contact Info) Description 03/09/2023 Refill [facility]S [address] [place], [place] [phone] Alice Huber MD [address] [place] [address] Type 2 diabetes mellitus without complication, unspecified whether long term care social worker insulin use ([facility]) Social History Tobacco Use Types Packs/Day [...] Department Care Team (Late Contact Info) Description 05/05/2025 9:30 AM EDT Immunization [facility] MED[facility] [address] [place] [address] [phone] 12/23/2025 10:00 AM EDT Medication Management [facility] [address] [place] [address] [phone] Janice Candelaria PharmD [address] [place] [address] documented as of this encounter Visit Diagnoses Diagnosis Type 2 diabetes mellitus without complication, unspecified whether nursing home insulin use ([facility]) documented in this encounter Care Teams Dance Director Relationship Specialty Start Date End Date Audrey Smith MD [address] [place], [place] [phone] PCP - General Family Medicine 11/20/17 Rao Mcdowell, RN [address] [place] [address] Registered Nurse Family Medicine 11/29/24 Piedad Tolliver 11/29/24 documented as of this encounter
--- OUTSIDE RECORDS SUMMARY | 2025-03-17 10:47 | XMS_ITS | Encounter Summary ---
Author Organization [employer] Address [address] [facility] 7t [place] [address] Care Team Providers Care Custom Tailor Name Role Phone Audrey Smith MD Primary Care Provide r Rao Mcdowell RN Unavailable [phone] Piedad Tolliver Unavailable Reason for Visit * Reason Comments Med Refill Encounter Details Date Type Department Care Team ([facility] st Contact Info) Description 12/17/2024 Refill [facility] MEDICINE [address] [place] [address] [facility] [address] [place], [place] [phone] Diabetic polyneuropathy associated with type 2 diabetes [...] Info) Description 05/05/2025 9:30 AM EDT Immunization [facility] MEDICINE [address] [place] [address] 12/23/2025 10:00 AM EDT Medication Management [facility] MEDICINE [address] [place] [address] Janice Candelaria, PharmD [address] [place] [address] documented as of this encounter Visit Diagnoses Diagnosis Diabetic polyneuropathy associated with type 2 diabetes mellitus (CMS/HCC) documented in this encounter Additional Health Concerns Assessment Noted Time PHQ-9 Depression Total Score: 0 05/21/20 9:38 AM EDT documented as of this encounter Care Teams Custom Tailor Relationship Specialty Start Date End Date Audrey Smith MD [address] [place] [address] PCP - General Family Medicine 11/20/17 Rao Mcdowell, RN [address] [facility] MARISEL Heredia [address] Registered Nurse Family Medicine 11/29/24 Piedad Tolliver 11/29/24 documented as of this encounter
--- OUTSIDE RECORDS SUMMARY | 2025-03-17 10:47 | XMS_ITS | Encounter Summary ---
Author Organization [employer] Address [address] [place] [address] 7t [place] [address] Care Team Providers Care Pulmonary Function Technologist Name Role Phone Audrey Smith MD Primary Care Provide r Rao Mcdowell RN Unavailable [phone] Piedad Tolliver Unavailable Encounter Details Date Type Department Care Team (Late st Contact Info) Description 03/27/2023 Orders Only [facility] MEDICINE [address] [place] [address] Provider, MD Natasha Social History Tobacco Use [...] Info) Description 05/05/2025 9:30 AM EDT Immunization [address] [phone] 12/23/2025 10:00 AM EDT Medication Management [address] [phone] Janice Candelaria, PharmD [address] [place] [address] documented as of this encounter Procedures Procedure Name Priority Date/Time Associated Diagnosis Comments XR HIP RIGHT WITH PELVIS 1 VIEW Routine 03/30/2023 10:46 AM EDT COLONOSCOPY Routine 05/22/2021 documented in this encounter Results * XR Hip right with Pelvis 1 view (03/30/2023 10:46 AM EDT) Anatomical Region Laterality Modality Lower Extremities, Hip Bilateral Radiograp hic Imaging 03/30/2023 10:4 6 AM EDT Narrative 03/30/2023 11:21 AM EDT [address] [address] XRay Report Signed Patient: Owen Montano MR#: [id number] : 1970 Acct:[id number] Age/Sex: 52 / M ADM Date: 03/30/23 Loc: HO.ED Attending Dr: Ordering Physician: Ada Mcintosh NP Date of Service: 03/30/23 Procedure(s): XR hip RT w PEL1V Accession Number(s): [id number] cc: Audrey Smith MD; Ada Mcintosh NP [...] in OV> 03/30/23 1117 DD/ 1046 TD/TT: Senior Application Security Consultant: Procedure Note Donotuseinterpreter, Image - 03/30/[address] [address] XRay Report Signed Patient: Owen MontanoMR#: [id number] : 1970Acct:[id number] Age/Sex: 52 / MADM Date: 03/30/23 Loc: HO.ED Attending Dr: Ordering Physician: Ada Mcintosh NP Date of Service: 03/30/23 Procedure(s): XR hip RT w PEL1V Accession Number(s): [id number] cc: Audrey Smith MD; Ada Mcintosh NP [...] in OV> 03/30/23 1117 DD/ 1046 TD/TT: Senior Application Security Consultant: [facility] External Provider IMG XR PROCEDURES Final Result * Hm Colonoscopy (05/22/2021) Historical Provider HEALTH MAINTENANCE Final Result documented in this encounter Visit Diagnoses Not on filedocumented in this encounter Care Teams Pulmonary Function Technologist Relationship Specialty Start Date End Date Audrey Smith MD [address] [place] [address] PCP - General Family Medicine 11/20/17 Rao Mcdowell, RN [address] [place] [address] Registered Nurse Family Medicine 11/29/24 Piedad Tolliver 11/29/24 documented as of this encounter
--- OUTSIDE RECORDS SUMMARY | 2025-03-17 10:47 | XMS_ITS | Encounter Summary ---
Author Organization [employer] Address [address] [facility] 7t [place] [address] Care Team Providers Care Vaccine Manager Name Role Phone Audrey Smith MD Primary Care Provide r Rao Mcdowell RN Unavailable [phone] Piedad Tolliver Unavailable Encounter Details Date Type Department Care Team (Late st Contact Info) Description 08/30/2022 Orders Only [facility] MEDICINE [address] [place] [address] Vane Cervantes MD [address] [place], [place] [phone] Muscle spasm (Primary Dx) Social History Tobacco [...] Info) Description 05/05/2025 9:30 AM EDT Immunization [facility] [address] [place] [address] [phone] 12/23/2025 10:00 AM EDT Medication Management [facility] [address] [place] [address] Janice Candelaria, PharmD [address] [place] [address] documented as of this encounter Visit Diagnoses Diagnosis Muscle spasm- Primary Spasm of muscle documented in this encounter Care Teams Vaccine Manager Relationship Specialty Start Date End Date Audrey Smith MD [address] [place] [address] PCP - General Family Medicine 11/20/17 Rao Mcdowell, VANE [address] [place] [address] Registered Nurse Family Medicine 11/29/24 Piedad Tolliver 11/29/24 documented as of this encounter
--- OUTSIDE RECORDS SUMMARY | 2025-03-17 10:47 | XMS_ITS | Encounter Summary ---
Author Organization [employer] Address [address] [facility] 7t [place] [address] Care Team Providers Care Production Line Name Role Phone Audrey Smith MD Primary Care Provide r Rao Mcdowell RN Unavailable [phone] Piedad Tolliver Unavailable Encounter Details Date Type Department Care Team (Late st Contact Info) Description 10/10/2022 Orders Only [facility] MEDICINE [address] [place] [address] Uzma Tyler LPN Social History Tobacco Use [...] 05/05/2025 9:30 AM EDT Immunization [facility] MEDICINE [address] [place] [address] [phone] 12/23/2025 10:00 AM EDT Medication Management [facility] MEDICINE [address] [place] [address] [phone] Janice Candelaria PharmD [address] [place] [address] documented as of this encounter Visit Diagnoses Not on filedocumented in this encounter Care Teams Production Line Relationship Specialty Start Date End Date Audrey Smith MD [address] [place] [address] PCP - General Family Medicine 11/20/17 Rao Mcdowell, VANE [address] [place] [address] Registered Nurse Family Medicine 11/29/24 Piedad Tolliver 11/29/24 documented as of this encounter
== END 2025-03-17 09:40 | disposition home or self-care (01) ==
LOC: HO.HHCL 09:39
PROVIDERS: PCP Internal Medicine; Visit Provider Internal Medicine
DX: E11.65 Type 2 diabetes mellitus with hyperglycemia (principal)
CPT/HCPCS: 82043; 82570

== ENCOUNTER 2025-04-08 09:25 | Outpatient (AMB) | payer MEDICAID, SELFPAY ==
--- NOTE | 2025-04-08 09:37 | A.OFFVIS_ITS ---
Vital Signs 04/08/25 09:38 Height 5 ft 6 in Weight 168 lb BMI 27.1 BP 106/74 Blood Pressure Location Lt brachial Position Sitting Respiration 16 Pulse 74 Pulse Source Pulse Oximeter Pulse Oximetry (%) 98 Oxygen Delivery Method Room Air Intake Visit Reasons: FOLLOW UP AFTER SCS IMPLANT Dynamiter Required: Yes Dynamiter Services: Dynamiter Present Allergies No Known Allergies (No Known Allergies*) Allergy (Verified 04/08/25 09:41) Medication List - Last Reconciled 04/08/25 by Waleska Ku LPN alirocumab (Praluent Pen) 75 mg subcut Q2W aspirin (Adult Low Dose Aspirin) 81 mg PO DAILY blood sugar diagnostic (FreeStyle Lite Strips) As directed blood-glucose meter (FreeStyle [place] Lite kit) As directed cholecalciferol (vitamin D3) 25 mcg PO DAILY clopidogrel 75 mg PO DAILY cyclobenzaprine 5 mg PO TID dicyclomine 20 mg PO QID PRN empagliflozin (Jardiance) 25 mg PO DAILY famotidine 40 mg PO BID fexofenadine (Allergy Relief (fexofenadine)) 180 mg PO DAILY gabapentin 400 mg PO TID glipizide ER 2.5 mg PO DAILY hydrocortisone 2.5% (Procto-Med HC) 1 ea NV BID PRN hydroxyzine HCl 1 tab PO BEDTIME PRN imipramine HCl 10 mg PO BEDTIME lancets (TRUEplus Lancets) As directed levothyroxine 25 mcg PO QAM lidocaine 5% (Lidoderm) 1 patch topical DAILY PRN udlpsx-hcibcapv-jwycurp 5,000-17,000- 24,000 unit (Zenpep) 1 cap PO QID loperamide 2 mg PO BID PRN lorazepam 2 mg PO DAILY PRN metformin ER 1,000 mg PO QPM metoprolol succinate ER 50 mg PO DAILY needle (disp) 18 G (BD Regular Bevel [place]) As directed - draw up testosterone needle (disp) 22 G To inject Testosterone nitroglycerin 0.4 mg sublingual Q5M PRN oxybutynin chloride ER 5 mg PO DAILY 90 days promethazine 25 mg PO Q12H PRN risperidone 4 mg PO BEDTIME rosuvastatin 20 mg PO BEDTIME sertraline 100 mg PO DAILY sertraline 50 mg PO DAILY syringe (disposable) (Monoject TB Luer Judy) As directed - use 18 needle to draw up testosterone and 22 to inject tamsulosin 0.4 mg PO BEDTIME 90 days testosterone (Testopel) 75 mg implant .every 12 weeks HPI HPI FOLLOW UP AFTER SCS IMPLANT: Details: History of Present Illness The patient is a 54-year-old male presenting for follow-up after hip injections and SCS placement by Dr. Cara Arias. The patient has a history of hip pain for which he received injections in the past. Recently, a stimulator was implanted in September to manage his PDN, and he reports that it is functioning well. The stimulator was placed by Dr. Davenport, but due to changes in the doctor's availability, the patient was advised to seek follow-up care with our office. The patient also has a history of diabetes, which may have been a factor in the decision to place the stimulator. Pain Description - Pain location: Hip - Intervention: Hip injections and SCS placement - Current status: Pain managed well with stimulator Physical Exam - Back: Examined, no specific findings discussed Pain Management - Analgesia: Pain managed well with stimulator - Activities of Daily Living: No interference reported [facility] Medical History (Updated 04/12/25 @ 12:58 by Jesu Wood MD) COVID-19 Hypogonadism Nocturnal hypoxemia SARTHAK (obstructive sleep apnea) Hypogonadism in male On beta catherine at home Hypothyroid IBS (irritable bowel syndrome) BPH (benign prostatic hyperplasia) Anxiety Allergic rhinitis COLON (nonalcoholic steatohepatitis) Elevated AFP Decreased libido Type 2 diabetes mellitus with unspecified complications Other and unspecified hyperlipidemia Essential hypertension Atherosclerotic cardiovascular disease Hypogonadism in male Surgical History (Updated 01/07/25 @ 13:12 by JOSELITO Browne) S/P placement of nerve stimulator History of esophagogastroduodenoscopy (EGD) Hx of colonoscopy History of cardiac cath History of cardiac cath Family History Father Cardiac disease Mother Cardiac disease Social History Are you a primary medicare interviewer to a significant other at home: No Do you presently have visiting nurse or other home services: No Alcohol intake: former Patient Tobacco Use Status: Former Tobacco user Tobacco use type: Cigarette Physical Exam Vital Signs: Last Vital Signs Pulse 74 04/08/25 09:38 Resp 16 04/08/25 09:38 BP 106/74 04/08/25 09:38 Pulse Ox 98 04/08/25 09:38 Oxygen Delivery Method Room Air 04/08/25 09:38 BMI result Body Mass Index 27.1 Assessment & Plan Assessment & Plan (1) Diabetic neuropathy: Code(s): E11.40 - Type 2 diabetes mellitus with diabetic neuropathy, unspecified Category: Medical Plan Plan Patient was informed and verbally consented to the use of an ambient scribe for clinic note documentation during this visit. 1. Hip Pain - Continue monitoring the effectiveness of the stimulator. 2. SCS Management - Follow up for reprogramming p.r.n. 3. Diabetes - Monitor blood glucose levels regularly. Discussion Notes During the visit, I discussed with the patient the importance of following up with the original physician who implanted the stimulator if any Surgical issues arise. I also emphasized that while the stimulator is functioning well, any programming needs can be addressed here. Patient Instructions - Continue using the stimulator as directed. - Schedule an appointment here if any issues with the stimulator arise. - Monitor blood sugar levels regularly and follow diabetes management plan. Coding Level of Care Code Est Pt Level 3 (94171) Diagnoses Diabetic neuropathy E11.40
[2025-04-08 09:38] VITALS: BP 106/74; PULSE 74; RESP 16; O2SAT 98; BMI 27.1
--- OUTSIDE RECORDS SUMMARY | 2025-04-08 09:58 | XMS_ITS | Clinical Summary ---
Author Organization [facility] Address [address] [place] [address] Care Team Providers Care Manager Semiconductor Name Role Phone Unavailable Primary Care Provider [...] Screening (Colonoscopy) 2014 COVID-19 Vaccine ( season) 2025 08/01/2023, 07/10/2022, 10/31/2021 Influenza Vaccine (#1) 2025 3, 04/18/2022, 04/13/2021, Additional history exists DTap / Tdap / Td (2 - Td or Tdap) 03/16/2028 03/16/2018 Hepatitis B Vaccines Completed 12/07/2020, 01/25/2019, 12/25/2018 Shingrix-Zoster Vaccine Completed 08/09/2021, 05/30 Pneumococcal Vaccine Completed 10/22/2023 RSV Ped < 20 months Aged Out No longe r eligible based on patient's age to complete this topic
--- OUTSIDE RECORDS SUMMARY | 2025-04-08 09:58 | XMS_ITS | Encounter Summary ---
Author Organization [employer] Address [address] [facility] 7t [place] [address] Care Team Providers Care Academic Advising Director Name Role Phone Audrey Smith MD Primary Care Provide r Rao Mcdowell RN Unavailable [phone] Piedad Tolliver Unavailable Reason for Visit * Reason Comments Med Refill Encounter Details Date Type Department Care Team ([facility] st Contact Info) Description 10/22/2024 Refill [facility] MEDICINE [address] [place] [address] Audrey Smith MD [address] [place] [address] Diabetic polyneuropathy associated with type 2 diabetes mellitus ([facility]/HCC) Social History Tobacco Use Types [...] the past 12 months, has t he [employer], gas, oil or water [employer] threatened to shut off services in your [...] Info) Description 05/05/2025 9:30 AM EDT Immunization [facility] [address] [place] [address] 06/09/2025 9:00 AM EST Office Visit [facility] [address] [place] [address] Audrey Smith MD [address] [place] [address] 12/23/2025 10:00 AM EDT Medication Management [facility] [address] [place] [address] Janice Candelaria, PharmD [address] [place] [address] documented as of this encounter Visit Diagnoses Diagnosis Diabetic polyneuropathy associated with type 2 diabetes mellitus (CMS/HCC) documented in this encounter Additional Health Concerns Assessment Noted Time PHQ-9 Depression Total Score: 0 05/21/20 24 9:38 AM EDT documented as of this encounter Care Teams Academic Advising Director Relationship Specialty Start Date End Date Audrey Smith MD [address] [place] [address] PCP - General Family Medicine 11/20/17 Rao Mcdowell, VANE [address] [place] [address] Registered Nurse Family Medicine 11/29/24 Piedad Tolliver 11/29/24 documented as of this encounter
--- OUTSIDE RECORDS SUMMARY | 2025-04-08 09:58 | XMS_ITS | Encounter Summary ---
Author Organization [employer] Address 75 [facility] 7t [place] [address] Care Team Providers Care Civil Transportation Engineer Name Role Phone Audrey Smith MD Primary Care Provide r Rao Mcdowell RN Unavailable [phone] Piedad Tolliver Unavailable Encounter Details Date Type Department Care Team (Late st Contact Info) Description 03/27/2023 Orders Only [facility] [address] [place] [phone] ProviderNatasha MD Social History Tobacco Use Types [...] Info) Description 05/05/2025 9:30 AM EDT Immunization [facility] [address] [place] [phone] 06/09/2025 9:00 AM EST Office Visit [address] [address] Audrey Smith MD [address] [place] [address] 12/23/2025 10:00 AM EDT Medication Management [facility] [address] [place] [address] Janice Candelaria, PharmD [address] [place] [address] documented as of this encounter Procedures Procedure [...] AM EDT Narrative 03/30/2023 11:21 AM EDT [facility] [address] [place] [address] XRay Report Signed Patient: Owen Montano MR#: [id number] : 1970 Acct:[id number] Age/Sex: 52 / M ADM Date: 03/30/23 Loc: HO.ED Attending Dr: Ordering Physician: Ada Mcintosh NP Date of Service: 03/30/23 Procedure(s): XR hip RT w PEL1V Accession Number(s): [id number] cc: Audrey Smith MD; Ada Mcintosh NP [...] in OV> 03/30/23 1117 DD/ 1046 TD/TT: Dross Puller: Procedure Note Donotuseinterpreter, Image - 03/30/2023 [facility] [address] [place] [address] XRay Report Signed Patient: Owen MontanoMR#: [id number] : 1970Acct:[id number] Age/Sex: 52 / MADM Date: 03/30/23 Loc: HO.ED Attending Dr: Ordering Physician: Ada Mcintosh NP Date of Service: 03/30/23 Procedure(s): XR hip RT w PEL1V Accession Number(s): [id number] cc: Audrey Smith MD; Ada Mcintosh NP [...] in OV> 03/30/23 1117 DD/ 1046 TD/TT: Dross Puller: [facility] External Provider IMG XR PROCEDURES Final Result * Hm Colonoscopy (05/22/2021) Historical Provider HEALTH MAINTENANCE Final Result documented in this encounter Visit Diagnoses Not on filedocumented in this encounter Care Teams Civil Transportation Engineer Relationship Specialty Start Date End Date Audrey Smith MD [address] [place] [address] PCP - General Family Medicine 11/20/17 Rao Mcdowell, RN [address] [place] [address] Registered Nurse Family Medicine 11/29/24 Piedad Tolliver 11/29/24 documented as of this encounter
--- OUTSIDE RECORDS SUMMARY | 2025-04-08 09:58 | XMS_ITS | Encounter Summary ---
Author Organization [employer] Address 75 [facility] 7t [place] [address] Care Team Providers Care Telepathist Name Role Phone Audrey Smith MD Primary Care Provide r Rao Mcdowell RN Unavailable [phone] Piedad Tolliver Unavailable Reason for Visit * Reason Comments Med Refill Encounter Details Date Type Department Care Team (Late Contact Info) Description 03/09/2023 Refill [facility] MED & PEDS [address], [place] [phone] Alice Huber MD [address] [place], [place] [phone] Type 2 diabetes mellitus without complication, unspecified whether middle or intermediate school principal insulin use ([facility]) Social History Tobacco Use Types [...] Info) Description 05/05/2025 9:30 AM EDT Immunization [facility] [address] [place] [address] [phone] 06/09/2025 9:00 AM EST Office Visit [facility] [address] [place] [address] [phone] Audrey Smith MD [address] [place] [address] [phone] 12/23/2025 10:00 AM EDT Medication Management [facility] [address] [place], [place] [phone] Janice Candelaria PharmD [address] [place] [address] documented as of this encounter Visit Diagnoses Diagnosis Type 2 diabetes mellitus without complication, unspecified whether fpc insulin use ([facility]) documented in this encounter Care Teams Telepathist Relationship Specialty Start Date End Date Audrey Smith MD [address] [place], [place] [phone] PCP - General Family Medicine 11/20/17 Rao Mcdowell, VANE [address] [place] [address] Registered Nurse Family Medicine 11/29/24 Piedad Tolliver 11/29/24 documented as of this encounter
--- OUTSIDE RECORDS SUMMARY | 2025-04-08 09:58 | XMS_ITS ---
Author Organization [employer] Address 75 [facility] 7t [place] [address] Care Team Providers Care Electrician Supervisor Airplane Name Role Phone Audrey Smith MD Primary Care Provide r Rao Mcdowell RN Unavailable [phone] Piedad Tolliver Unavailable CM Complex Status:Enrolled (Active) Start date:11/29/2024 Enrollment date:02/23/2025 Enrollment reason:ADT Feed Overview ADT-[facility] ED 11/26/24 Case Team Name Relationship Phone Rao Mcdowell RN(Responsible Staff) Registered N [facility] [phone] Continued Care and Services Coordination
--- OUTSIDE RECORDS SUMMARY | 2025-04-08 09:58 | XMS_ITS | Encounter Summary ---
Author Organization [employer] Address 75 [facility] 7t [place] [address] Care Team Providers Care Burring Wheel Operator Name Role Phone Adurey Smith MD Primary Care Provide r Rao Mcdowell RN Unavailable [phone] Piedad Tolliver Unavailable Reason for Visit * Reason Comments Med Refill Encounter Details Date Type Department Care Team ([facility] st Contact Info) Description 11/01/2024 Refill [facility] [address] [place] [address] Audrey Smith MD [address] [place] [address] Diabetic polyneuropathy associated with type 2 diabetes mellitus ([facility]/HCC) Social History Tobacco Use Types Packs/Day [...] the past 12 months, has t he [employer], gas, oil or water [employer] threatened to shut off services in your [...] Info) Description 05/05/2025 9:30 AM EDT Immunization [facility] [address] [place] [phone] 06/09/2025 9:00 AM EST Office Visit [facility] [address] [place] [address] Audrey Smith MD [address] [place] [address] 12/23/2025 10:00 AM EDT Medication Management [facility] [address] [place] [address] Janice Candelaria, PharmD [address] [place] [address] documented as of this encounter Visit Diagnoses Diagnosis Diabetic polyneuropathy associated with type 2 diabetes mellitus (CMS/HCC) documented in this encounter Additional Health Concerns Assessment Noted Time PHQ-9 Depression Total Score: 0 05/21/20 24 9:38 AM EDT documented as of this encounter Care Teams Burring Wheel Operator Relationship Specialty Start Date End Date Audrey Smith MD [address] [place] [address] PCP - General Family Medicine 11/20/17 Rao Mcdowell, VANE [address] [place] [address] Registered Nurse Family Medicine 11/29/24 Piedad Tolliver 11/29/24 documented as of this encounter
--- OUTSIDE RECORDS SUMMARY | 2025-04-08 09:58 | XMS_ITS | Encounter Summary ---
Author Organization [employer] Address 75 [facility] 7t [place] [address] Care Team Providers Care Accounting Policy Consultant Name Role Phone Audrey Smith MD Primary Care Provide r Rao Mcdowell RN Unavailable [phone] Piedad Tolliver Unavailable Reason for Visit * Reason Comments Med Refill Encounter Details Date Type Department Care Team ([facility] st Contact Info) Description 12/17/2024 Refill [facility] [address] [place] [address] [facility] [address] [place], [place] [phone] Diabetic polyneuropathy associated with type 2 diabetes [...] Info) Description 05/05/2025 9:30 AM EDT Immunization [facility] [address] [place] [phone] 06/09/2025 9:00 AM EST Office Visit [facility] [address] [place] [address] Audrey Smith MD [address] [place] [address] 12/23/2025 10:00 AM EDT Medication Management [facility] [address] [place] [address] Janice Candelaria, PharmD [address] [place] [address] documented as of this encounter Visit Diagnoses Diagnosis Diabetic polyneuropathy associated with type 2 diabetes mellitus (CMS/HCC) documented in this encounter Additional Health Concerns Assessment Noted Time PHQ-9 Depression Total Score: 0 05/21/20 24 9:38 AM EDT documented as of this encounter Care Teams Accounting Policy Consultant Relationship Specialty Start Date End Date Audrey Smith MD [address] [place] [address] PCP - General Family Medicine 11/20/17 Rao Mcdowell, VANE [address] [place] [address] Registered Nurse Family Medicine 11/29/24 Piedad Tolliver 11/29/24 documented as of this encounter
--- OUTSIDE RECORDS SUMMARY | 2025-04-08 09:58 | XMS_ITS | Encounter Summary ---
Author Organization [employer] Address 75 [facility] 7t [place] [address] Care Team Providers Care Shucker Name Role Phone Audrey Smith MD Primary Care Provide r Rao Mcdowell RN Unavailable [phone] Piedad Tolliver Unavailable Reason for Visit * Reason Comments Med Refill Encounter Details Date Type Department Care Team ([facility] Contact Info) Description 01/10/2023 Refill [facility]INE [address] [place] [phone] NameSameer MD [address] [place] [address] Social History Tobacco Use Types Packs/Day Years [...] Upcoming Encounters Date Type Department Care Team ([facility] Contact Info) Description 05/05/2025 9:30 AM EDT Immunization [facility]INE [address] [place] [address] [phone] 06/09/2025 9:00 AM EST Office Visit [facility] [address] [place] [address] Audrey Smith MD [address] [place] 12/23/2025 10:00 AM EDT Medication Management [facility] [address] [place] [address] Janice Candelaria PharmD [address] [place] [address] documented as of this encounter Visit Diagnoses Not on filedocumented in this encounter Care Teams Shucker Relationship Specialty Start Date End Date Audrey Smith MD [address] [place], [place] [phone] PCP - General Family Medicine 11/20/17 Rao Mcdowell, RN [address] [place] [address] Registered Nurse Family Medicine 11/29/24 Piedad Tolliver 11/29/24 documented as of this encounter
--- OUTSIDE RECORDS SUMMARY | 2025-04-08 09:58 | XMS_ITS ---
Author Organization [email or web address] Address 75 [facility] 7t [place] [address] Care Team Providers Care Professional Tutor Name Role Phone Audrey Smith MD Primary Care Provide r Rao Mcdowell RN Unavailable [phone] Piedad Tolliver Unavailable CHW Complex Status:Enrolled (Active) Start date:11/29/2024 Enrollment date:12/06/2024 Enrollment reason:ADT Feed Overview ADT-[facility] ED 11/26/24 Case Team Name Relationship Phone Piedad Tolliver(Responsible Staff) Continued Care and Services Coordination
--- OUTSIDE RECORDS SUMMARY | 2025-04-08 09:58 | XMS_ITS | Clinical Summary ---
Author Organization 175 [facility] Address [address] [place] [address] Phone Care Team Providers Care Molten Iron Pourer Name Role Phone Audrey Smith MD Primary [...] not requiring any pain medication. Sarbjit from [employer] is here as well to go over [...] pain med refills today. We used [employer] spanish interpreter/translator Leeanna #[id number], Morgan #[id number]. Chronic pain syndrome 09/21/2024 Diabetic neuropathy, painful ([facility] V24, [facility] V28) 09/14/2024 Assessment & Plan (09/14/2024 4:44 PM EST): I reviewed the steps involved in placement of the spinal cord stimulator leads and generator with the patient in conjunction with Sarbjit the territory representative from [employer] and a judicial clerk. I demonstrated the position of each incision [...] hyperglycemia, without long-term current use of insulin ([facility] V24, [facility] V28) 12/04/2022 Stented coronary artery 11/20/2017 Essential hypertension 11/20/2017 Anxiety 11/20/2017 Acquired hypothyroidism 11/20/2017 Immunizations Name Administration Dates Next Due COVID-19 (Moderna/Spikevax) 12yo and older 07/10/2022 Hepatitis B (Synnsgn-P-Fwiys , Recombivax HB-Adult) 19yo and older 12/07/2020,01/25/2019,12/25/2018 [...] IMPLANT 10/04/2024 Dr. Davenport and Dr. Parsons, [facility] Medical History Medical History Date Comments Diabetes mellitus ([facility] V24, [facility] V28) Hypertension Disease of thyroid [...] AM EDT Office Visit [facility] - [place] [address] [address] Aaron Graves, DPM [address] [address] Health Maintenance Due Date Last Done Comments [...] Cholesterol Screening (Lipid Panel) 08/25/2029 08/25/2024, 06/02/2024 RSV Immunization Adult Patients (1 - 1-dose 75+ series) 2044 Hepatitis B Vaccines Completed 12/07/2020, 01/25/2019, 12/25/2018 [...] this topic Medical Devices Implanted Type Area Math Coach Device Identifier Shelf Expiration Date Model / Serial / Lot Lead Linear Trial St - [id number] - [id number] Implanted:Qty : 1 on 08/24/2024 by Rock Parsons MD at [facility] Neurostim Right: Back [employer] 03/23/2026 [id number] / [id number] / [id number] Lead Linear Trial St - [id number] - [id number] Implanted:Qty : 1 on 08/24/2024 by Rock Parsons MD at [facility] Neurostim Left: Back [employer] 03/15/2026 [id number] / [id number] / [id number] Generator Implant Pulse Ww Alpha - [id number] - [id number] Implanted:Qty : 1 on 10/04/2024 by Cara Davenport MD at [facility] Neurostim Left: Back [employer] [id number] 06/22/2026 [id number] / [id number] / [id number] Powder Surgifoam Absorb Gel - Sna - [id number] Implanted:Qty : 1 on 10/04/2024 by Cara Davenport MD at [facility] [employer] Left: Back [employer] [id number] 06/28/20261977 / NA / [id number] Linearv Contact Lead Set Implanted:Qty : 1 on 10/04/2024 by Cara Davenport MD at [facility] Left: Back [employer] 08/13/2026 [id number] / [id number] / [id number] Linear Contact Lead Kit Implanted:Qty : 1 on 10/04/2024 by Cara Davenport MD at [facility] Left: Back [employer] 08/13/2026 [id number] / [id number] / [id number] Insurance MEDICAID - [place] Advance Directives [...] currently active code status orders. Care Teams Molten Iron Pourer Relationship Specialty Start Date End Date Audrey Smith MD [address] [address] PCP - General 07/01/23
--- OUTSIDE RECORDS SUMMARY | 2025-04-08 09:58 | XMS_ITS | Clinical Summary ---
Author Organization [employer] Address [address] [facility] 7t [place] [address] Care Team Providers Care Program Research Specialist Name Role Phone Audrey Smith MD Primary Care Provide r Rao Mcdowell RN Unavailable [phone] Piedad Tolliver Unavailable Allergies No known [...] MG 24 hr tablet 023 Active Zenpep 5000-58080 units capsule delayed-release particles capsule Take 1 [...] hyperglycemia, without long-term current use of insulin ([facility]) 1 kit 2 times daily. 1 [...] every 3 (three) months. Administered at office ([facility]) Active clopidogrel (Plavix) 75 MG tabletIndications :Coronary artery disease involving [place] coronary artery of [place] heart, unspecified whether angina present TAKE 1 TABLET BY MOUTH EVERYDAY AT NOON 90 tablet 1 025 Active aspirin (Aspirin Low Dose) 81 MG EC tabletIndications :Coronary artery disease involving [place] coronary artery of [place] heart, unspecified whether angina present TAKE 1 [...] 24 hr tabletIndications :Coronary artery disease involving [place] coronary artery of [place] heart, unspecified whether angina present TAKE 1 TABLET BY MOUTH EVERYDAY AT NOON 90 tablet 1 025 Active empagliflozin (Jardiance) 25 MGIndications:Typ e 2 diabetes mellitus with hyperglycemia, without long-term current use of insulin ([facility]) Take 1 tablet (25 mg) by mouth Once per day. 30 tablet 025 2025 Active metFORMIN XR (Glucophage-XR) 500 MG 24 hr tablet Take 2 tablets by mouth with evening meal. Active glipiZIDE XL (Glucotrol XL) 2.5 MG 24 hr tabletIndications :Type 2 diabetes mellitus without complication, unspecified whether exterminator insulin use ([facility]) TAKE 1 TABLET BY MOUTH EVERYDAY AT NOON 90 tablet 1 Active glucose blood (FREESTYLE LITE) test stripIndications: Type 2 diabetes mellitus with hyperglycemia, without long-term current use of insulin ([facility]) TEST BLOOD SUGAR TWICE DAILY 50 strip Active TRUEplus Lancets 33G miscIndications:T ype 2 diabetes mellitus with other specified complication, without long-term current use of insulin ([facility]) TEST BLOOD SUGAR TWICE DAILY 100 each 11 025 Active gabapentin (Neurontin) 400 MG capsuleIndication s:Diabetic polyneuropathy associated with type 2 diabetes mellitus ([facility]) TAKE 1 CAPSULE BY MOUTH AT NOON, EVENING, AND BEDTIME 90 capsule 1 025 Active Tirzepatide (Mounjaro) 2.5 MG/0.5ML solution auto-injectorIndi cations:Type 2 diabetes mellitus with hyperglycemia, without long-term current use of insulin ([facility]) Inject 2.5 mg under the skin 1 (one) time per week. 2 mL 2 Active Blood Glucose Monitoring Suppl (FreeStyle Hawi Lite) w/Device kitIndications:Ty pe 2 diabetes mellitus with hyperglycemia, without long-term current use of insulin ([facility]) Use to test blood sugar 1 times daily 1 kit 025 Active FREESTYLE LITE test stripIndications: Type 2 diabetes mellitus with hyperglycemia, without long-term current use of insulin ([facility]) Use to test blood sugar 1 times daily 100 each 12 025 2025 Active Lancets miscIndications:T ype 2 diabetes mellitus with hyperglycemia, without long-term current use of insulin ([facility]) Use to test blood sugar 1 times daily 100 each 025 Active Alcohol Swabs 70 % padsIndications:T ype 2 diabetes mellitus with hyperglycemia, without long-term current use of insulin ([facility]) Use to test blood sugar 1 times daily 100 each 025 Active Diclofenac Sodium 1 % gel Apply 4 g topically 2 times daily. 024 2024 Discontinued oxyCODONE (Roxicodone) 5 MG immediate release tablet TAKE 1 TO 2 TABLETS BY MOUTH EVERY 8 HOURS NEEDED FOR SEVERE PAIN 025 2024 Discontinued Active Problems Problem Noted [...] tells me she [facility] and just started on [...] of colon 11/20/2017 Hyperuricemia 11/20/2017 CAD in [place] artery 11/20/2017 Benign prostatic hyperplasia with nocturia [...] will continue with same medications, I extensibly staff counselor him about diabetic diet and let him know his glucose also will likely go down after back injections wears out - Encounters Date Type Department Care Team Description 03/30/2025 Orders Only [facility] [address] [place] [address] Audrey Smith MD S/P insertion of spinal cord stimulator (Primary Dx) 03/24/2025 Orders Only [facility] [address] [place] [address] Audrey Smith MD S/P insertion of spinal cord stimulator (Primary Dx) 03/24/2025 Orders Only [address] [address] Audrey Smith MD Type 2 diabetes mellitus with hyperglycemia, without long-term current use of insulin ([facility]) (Primary Dx) 03/24/2025 Patient Outreach [address] [address] Audrey Smith MD Care Management (C3CM- F/U call # 1) 03/17/2025 9:15 AM EDT Office Visit [address] [address] Audrey Smith MD Essential hypertension (Primary Dx); Type 2 diabetes mellitus with hyperglycemia, without long-term current use of insulin ([facility]); Dietary counseling; Exercise counseling; Depression with anxiety 03/17/2025 Travel 03/16/[address] [phone] Audrey Smith MD chart prep 03/10/2025 11:00 AM EDT Office Visit [facility] [address] [place], [place] [phone] Presbyopia of both eyes (Primary Dx) 03/10/2025 Patient Outreach [address] [address] Audrey Smith MD Pre-visit Planning (SDOH screening completed on 12/06/2024) 02/25/2025 Plan of Care Documentation [address] [address] 02/23/2025 Patient Outreach [address] [address] Audrey Smith MD Care Management (C3- Initial assessment/enrollment ) 02/22/2025 Patient Outreach [address] [address] Audrey Smith MD Care Coordination (C3 -[facility] [place] telephone call outreach) 02/19/[address] [address] Audrey Smith MD Diabetic polyneuropathy associated with type 2 diabetes mellitus ([facility]) 02/11/2025 Patient Outreach [address] [address] Audrey Smith MD Care Coordination ([address] [place] telephone call outreach ) 02/03/2025 Orders Only GENERIC EXTERNAL DATA DEPARTMENT Provider, Generic External Data 01/28/2025 Patient Outreach [address] [address] Audrey Smith MD Care Coordination (////) 01/27/2025 Refill [facility] [address] [place] [address] Audrey Smith MD Type 2 diabetes mellitus with other specified complication, without long-term current use of insulin (CMS/HCC) 01/17/2025 Refill [facility] [address] [place] [address] Audrey Smith MD Type 2 diabetes mellitus without complication, unspecified whether nursing home insulin use ([facility]); Type 2 diabetes mellitus with hyperglycemia, without long-term current use of insulin ([facility]) 01/15/2025 Refill [facility] [address] [place] [address] Audrey Smith MD Type 2 diabetes mellitus with hyperglycemia, without long-term current use of insulin ([facility]) 01/11/2025 1:30 PM EDT Office Visit [facility] [address] [place], [place] [phone] Gm, Ailyn, OD Diabetes type 2, no ocular involvement ([facility]) (Primary Dx); Tortuous retinal veins; 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; Meibomian gland disease, unspecified laterality; Combined forms of age-related cataract of both eyes; Presbyopia of both eyes 01/11/2025 Travel 01/10/2025 Patient Outreach [facility] [address] [place] [address] Audrey Smith MD 01/07/2025 Patient Outreach [facility] [address] [place] [address] Audrey Smith MD 01/07/2025 Patient Outreach [facility] [address] [place] [address] Audrey Smith MD from Last 3 Months Immunizations Immunization Administration [...] Info) Description 05/05/2025 9:30 AM EDT Immunization [facility] [address] [place] [phone] 06/09/2025 9:00 AM EST Office Visit [facility] [address] [place] [address] Audrey Smith MD [address] [place] [address] 12/23/2025 10:00 AM EDT Medication Management [facility] [address] [place] [address] Janice Candelaria, PharmD [address] [place] [address] Health Maintenance Due Date Last Done Comments CT Colonography 1970 FIT DNA/Cologuard 1969 FIT 1969 FOBT 1970 Sigmoidoscopy 1969 Diabetes: Foot Exam 11/07/1979 Hepatitis C Screening 11/07/1987 Colonoscopy 05/22/2023 05/22/2021 Colorectal Cancer Screening 05/22/2023 Influenza Vaccine (#1) 2025 , 05/16/2023, 04/18/2022, Additional history exists Hepatitis A Vaccines (2 of 2 - Risk 2-dose series) 05/05/2025 11/03/2024 Diabetes: Hemoglobin A1C 06/17/2025 025, 11/19/2024, 09/17/2024, Additional history exists Lipid Panel 08/25/2025 08/25/2024, 05/21, 12/03/2023, Additional history exists Depression Monitoring 09/17/2025 03/17/2025, 025 SDOH Screening 12/06/2025 12/06/2024 Alcohol/Substance Use Screening 03/17/2026 03/17/2025 Diabetes: Urine Protein Screening 03/17/2026 03/17/2025, 06/02/2024, 12/26/2022, Additional history exists Disability Screening 03/17/2026 03/17/2025 Tobacco Screening 03/17/2026 [...] Procedure Name Priority Date/Time Associated Diagnosis Comments ALBUMIN, RANDOM URINE W/CREATININE Routine 03/17/2025 9:45 AM EDT Type 2 diabetes mellitus with hyperglycemia, without long-term current use of insulin ([facility]) POCT GLYCATED HEMOGLOBIN, TOTAL Routine 03/17/2025 9:00 AM EDT Type 2 diabetes mellitus with hyperglycemia, without long-term current use of insulin ([facility]) POCT GLUCOSE Routine 03/17/2025 8:58 AM EDT Type 2 diabetes mellitus with hyperglycemia, without long-term current use of insulin ([facility]) TESTOSTERONE, TOTAL, MALES (ADULT), IA Routine 02/03/2025 7:23 AM EDT FUNDUS PHOTOS - OU - BOTH EYES Routine 01/11/2025 1:30 PM EDT Tortuous retinal veins LIPID PANEL, STANDARD Routine 08/25/2024 7:10 AM EST HM COLONOSCOPY Routine 05/22/2021 ZZZ HISTORICAL HIV AB/AG Routine 10/01/2019 10:28 AM EDT from Last 3 Months or Most Recently Relevant to Health Maintenance Results * Albumin, Random Urine W/Creatinine (03/17/2025 9:45 AM EDT) Creatinine, Urine 46.49 mg/dL [facility] Microalbumin Urine <5.0 mg/L H [facility] Microalbum Creatinine Ratio Ur TNP <30 ug/mg cr [facility] Comment:Unable to calculate albumin/creatinine ratio due to lowmicroalbumin or creatinine result. Urine (Urine, Random) 03/17/2025 9:45 AM EDT 03/17/2025 11:07 AM EDT Audrey Holman MD LAB URINE ORDERABLES Final Result [facility] [address] [place] [phone] * (ABNORMAL) POCT HGB A1C (03/17/2025 9:00 [...] Media Lot # [id number] Lot# Expiration Date 468 Blood Capillary blood specimen / Unknown 03/17/2025 8:58 AM EDT Audrey Holman MD POINT OF CARE TEST EN TER/EDIT ORDERABLES Final Result * Testosterone, Total, males (Adult), IA (02/03/2025 7:23 AM EDT) Testosterone, Total 447 250 - 1100 ng/dL [facility] Comment:For additional infor gunnar, please refer [email or web address](This link is being provided for informational/educational purposes only.)This test was developed and its analytical performancecharacteristics have been determined by [facility] [place], [place]. It hasnot been cleared or approved by the U.S. Food and DrugAdministration. This assay has been validated pursuantto the CLIA regulations and is used for clinicalpurposes.THIS TEST WAS PERFORMED AT:[employer] [place] [id number] FU MD,PHD 02/03/2025 7:23 AM EDT 02/03/2025 7:23 AM EDT Generic External Data Provider LAB BLOOD ORDERAB LES Final Result [facility] [address] [place] [phone] * Fundus Photos - OU - [...] to macula in left eye. us Ailyn Worrell OD [employer] Final Resul t * (ABNORMAL) Lipid Panel, Standard (08/25/2024 7:10 AM EST) Triglycerides 181(H) <150 mg/dL [facility] Comment:Desirable Triglyceri de: less than 150 mg/dLBorderline High Triglyceride 150-199 mg/dLHigh Triglyceride: 200-499 mg/dLVery High Triglyceride: greater than or equal to 5OO mg/dL Cholesterol 142 <200 mg/dL [facility] Comment:Desirable Cholestero l: less than 200 mg/dLBorderline High Cholesterol: 200-239 mg/dLHigh Cholesterol: greater than 239 mg/dL LDL Cholesterol Calculated 68 <100 mg/dL [facility] Comment:Desirable LDL: less than 100 mg/dLNear Optimal/Above Optimal LDL: 110- 129 mg/dLBorderline High LDL: 130-159 mg/dLHigh LDL: 160-189 mg/dLVery High LDL: greater than or equal to 190 mg/dL HDL Cholesterol 38(L) >40 mg/dL [facility] Comment:Desirable HDL: great er than 40 mg/dL Note: This HDL assay may give artificially low results in patients with liver disease. 08/25/2024 7:10 AM EST 08/25/2024 7:10 AM EST us Generic External Data Provider LAB BLOOD ORDERAB LES Final Result [facility] [address] [place] [address] [phone] * Hm Colonoscopy (05/22/2021) us Historical [...] of detection of this assay. The [facility] HIV Ag/Ab Combo assay result and supplemental [...] [facility] [address] from Last 3 Months or Most Recently Relevant to Health Maintenance Insurance [employer] C3 Care Teams Program Research Specialist Relationship Specialty Start Date End Date Audrey Smith MD [address] [place] [address] PCP - General Family Medicine 11/20/17 Rao Mcdowell, RN [address] [place] [address] Registered Nurse Family Medicine 11/29/24 Piedad Tolliver 11/29/24
--- OUTSIDE RECORDS SUMMARY | 2025-04-08 09:58 | XMS_ITS | Encounter Summary ---
Author Organization [employer] Address [address] [facility] 7t [place] [address] Care Team Providers Care Law Office Receptionist Name Role Phone Audrey Smith MD Primary Care Provide r Rao Mcdowell RN Unavailable [phone] Piedad Tolliver Unavailable Encounter Details Date Type Department Care Team (Late st Contact Info) Description 08/30/2022 Orders Only [facility] [address] [place] [phone] Vane Cervantes MD [address] [place] [address] [phone] Muscle spasm (Primary Dx) Social History Tobacco [...] 9:30 AM EDT Immunization [facility] [address] [place] [address] [phone] 06/09/2025 9:00 AM EST Office Visit [facility] [address] [place] [address] [phone] Audrey Smith MD [address] [place] [address] [phone] 12/23/2025 10:00 AM EDT Medication Management [facility] [address] [place] [address] Janice Candelaria, Chiki [address] [place] [address] documented as of this encounter Visit Diagnoses Diagnosis Muscle spasm- Primary Spasm of muscle documented in this encounter Care Teams Law Office Receptionist Relationship Specialty Start Date End Date Audrey Smith MD [address] [place] [phone] PCP - General Family Medicine 11/20/17 Rao Mcdowell, RN [address] [place] [address] Registered Nurse Family Medicine 11/29/24 Piedad Tolliver 11/29/24 documented as of this encounter
--- OUTSIDE RECORDS SUMMARY | 2025-04-08 09:58 | XMS_ITS | Encounter Summary ---
Author Organization [employer] Address [address] [facility] 7t [place] [address] Care Team Providers Care Agent Telegrapher Name Role Phone Audrey Smith MD Primary Care Provide r Rao Mcdowell RN Unavailable [phone] Piedad Tolliver Unavailable Encounter Details Date Type Department Care Team (Late st Contact Info) Description 10/10/2022 Orders Only [facility] [address] [place] [address] Uzma Tyler LPN Social History Tobacco Use [...] [facility] [address] [place] [address] 06/09/2025 9:00 AM EST Office Visit [address] [phone] Audrey Smith MD [address] [place] [address] 12/23/2025 10:00 AM EDT Medication Management [facility] [address] [place] [address] [phone] Janice Candelaria, PharmD [address] [place] [address] documented as of this encounter Visit Diagnoses Not on filedocumented in this encounter Care Teams Agent Telegrapher Relationship Specialty Start Date End Date Audrey Smith MD [address] [place], [place] [phone] PCP - General Family Medicine 11/20/17 Rao Mcdowell, RN [address] [place] [address] Registered Nurse Family Medicine 11/29/24 Piedad Tolliver 11/29/24 documented as of this encounter
== END 2025-04-08 10:18 | disposition home or self-care (01) ==
LOC: HO.PMC 09:26
PROVIDERS: PCP Internal Medicine; Visit Provider Internal Medicine
DX: E11.40 Type 2 diabetes mellitus with diabetic neuropathy, unspecified (principal); Z96.82 Presence of neurostimulator
CPT/HCPCS: 99213

== ENCOUNTER → 2025-04-08 09:25 | Outpatient (BNVA) | payer MEDICAID, SELFPAY | PROVIDERS: PCP Internal Medicine; Visit Provider Internal Medicine | DX: M25.551 Pain in right hip (principal); E11.40 Type 2 diabetes mellitus with diabetic neuropathy, unspecified; M25.552 Pain in left hip; E11.9 Type 2 diabetes mellitus without complications | CPT/HCPCS: 99212 ==

== ENCOUNTER → 2025-04-14 11:59 | Outpatient (REF) | payer MEDICAID, SELFPAY ==
--- NOTE | 2025-04-14 12:09 | CA_ITS ---
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 Study Quality: Adequate w contrast ECG Rhythm: Sinus Conclusions: - 1. Normal LV ejection fraction 55-60% 2. Normal cardiac valvular Dopplers 3. No gross pericardial effusion Findings Procedure Information Contrast agent, definity, is being given per protocol without apparent complications. Left Ventricle Normal left ventricular size, thickness, and systolic function. The visually estimated ejection fraction is between 55-60%. Spectral Doppler is indicative of a normal filling pattern. Wall Motion Rest Echo Findings The basal inferior and basal inferoseptal segments are hypokinetic. All other scored wall segments showed normal motion. Right Ventricle Normal right ventricular cavity size and systolic function. Atria Both atria are normal in size. There is no evidence of interatrial shunt. Aortic Valve There is no aortic valve stenosis. There is no aortic valve regurgitation. Mitral Valve Normal mitral valve structure and function. There is trace mitral valve regurgitation. There is no mitral valve stenosis. Pulmonic Valve The pulmonic valve is likely normal. There is trace pulmonic valve regurgitation. Tricuspid Valve Likely normal tricuspid valve structure and function. Tricuspid regurgitation envelope is inadequate for calculation of right ventricular systolic pressure. Normal right atrial pressure. Great Vessels All visible segments of the aorta are normal in size. The pulmonary artery was not well visualized. There is no dilatation of the ascending aorta measuring 2.90 cm. Venous The inferior vena cava is normal in size and collapses greater than 50% with inspiration. Pericardium/Pleural There is no evidence of pericardial effusion. Prior Study Comparison No significant change compared to prior study dated: 04/16/2022. Measurements 2D Linear Measurements IVSd: 0.71 0.6-0.9/0.6-1.0 cm LVIDd: 5.10 3.9-5.3/4.2-5.9 cm LVIDd Index: 2.79 2.4-3.2/2.2-3.1 cm/m2 LVIDs: 3.53 2.0-3.6 cm LVPWd: 0.69 0.7-1.1 cm LA Diam: 3.60 2.7-3.8/3.0-4.0 cm LAIDs Index: 1.97 1.5-2.3 cm/m2 LV Mass: 147.39 67-162/88-224 g LV Mass Index: 80.54 43-95/49-115 g/m2 LVOT Diam: 2.00 3.0+(-)1.3 cm Mitral Valve MV Pk E: 0.71 MV PK A: 0.76 MV Decel Time: 194.00 E/A: 0.90 E'Lateral: 8.59 E'Medial: 6.09 E/E' Med: 11.60 E/E' Lat: 8.20 PHT: 57.00 MVA PHT: 3.86 Decel [place]: 3.65 Aortic Valve AoV Pk Donte: 1.42 AoV Mn Donte: 1.01 AoV VTI: 0.30 AoV Pk Grad: 8.00 Aov Mn Grad: 5.00 NEERAJ Cont.VTI: 2.63 LVOT LVOT Pk Donte: 1.31 LVOT Mn Donte: 0.81 LVOT VTI: 0.25 LVOT Pk Grad: 7.00 LVOT Mn Grad: 3.00 LVOT Diam: 2.00 LVOT Area: 3.14 Diastolic Function MV Pk E: 0.71 MV Pk A: 0.76 E/A: 0.90 E'Medial: 6.09 E/E' Med: 11.60 E' Laterial: 8.59 E/E' Lat: 8.20 Right Ventricle TAPSE (mm): 29.10 TVS' Donte: 10.80 Tricuspid Valve RA Press: 3.00 Great Vessels Aorta Sinus of Valsalva: 3.06 2.0-3.5 cm Ao Asc: 2.90 2.1-3.4 cm Pulmonary Veins Pulm Vein S/D 1.10 Pulmonary Valve PV Pk Donte: 0.97 Peak PV Grad: 4.00 Updated in Other Vendor System with Status of Final Collins Eugene MD electronically signed on 04/14/2025 4:22:34 PM with status of Final
--- OUTSIDE RECORDS SUMMARY | 2025-04-14 16:58 | XMS_ITS | Clinical Summary ---
Author Organization [facility] Address [address] [place] [address] Care Team Providers Care Echo Vascular Tech Name Role Phone Unavailable Primary Care Provider [...] Shingrix-Zoster Vaccine Completed 08/09/2021, 05/30 Pneumococcal Vaccine Aged Out 10/22/2023 No long er eligible based on patient's age to complete this topic RSV Ped < 20 months Aged Out No longe r eligible based on patient's age to complete this topic
--- OUTSIDE RECORDS SUMMARY | 2025-04-14 16:58 | XMS_ITS | Encounter Summary ---
Author Organization [employer] Address [address] [facility] 7t [place] [address] Care Team Providers Care Documentation Designer Name Role Phone Audrey Smith MD Primary Care Provide r Rao Mcdowell RN Unavailable [phone] Piedad Tolliver Unavailable Encounter Details Date Type Department Care Team (Late st Contact Info) Description 10/10/2022 Orders Only [facility] [address] [place] [phone] Uzma Tyler LPN Social History Tobacco Use [...] Care Team (Late st Contact Info) Description 05/10/2025 1:00 PM EDT Immunization [facility] [address] [place] [address] 06/09/2025 9:00 AM EST Office Visit [address] [phone] Audrey Smith MD [address] [place] [address] 12/23/2025 10:00 AM EDT Medication Management [facility] [address] [place] [address] [phone] Janice Candelaria, PharmD [address] [place] [address] documented as of this encounter Visit Diagnoses Not on filedocumented in this encounter Care Teams Documentation Designer Relationship Specialty Start Date End Date Audrey Smith MD [address] [place], [place] [phone] PCP - General Family Medicine 11/20/17 Rao Mdcowell, RN [address] [place] [address] Registered Nurse Family Medicine 11/29/24 Piedad Tolliver 11/29/24 documented as of this encounter
--- OUTSIDE RECORDS SUMMARY | 2025-04-14 16:58 | XMS_ITS | Encounter Summary ---
Author Organization [employer] Address 75 [facility] 7t [place] [address] Care Team Providers Care Real Estate Legal Secretary Name Role Phone Audrey Smith MD Primary Care Provide r Rao Mcdowell RN Unavailable [phone] Piedad Tolliver Unavailable Reason for Visit * Reason Comments Med Refill Encounter Details Date Type Department Care Team (Late Contact Info) Description 03/09/2023 Refill [facility] MED & PEDS [address] [place], [place] [phone] Alice Huber MD [address] [place], [place] [phone] Type 2 diabetes mellitus without complication, unspecified whether heel buffer insulin use ([facility]) Social History Tobacco Use Types Packs/Day Years [...] Upcoming Encounters Date Type Department Care Team ([facility] Contact Info) Description 05/10/2025 1:00 PM EDT Immunization [facility] MEDICINE [address] [place] [address] [phone] 06/09/2025 9:00 AM EST Office Visit [facility] MED[facility] [address] [place] [address] [phone] Audrey Smith MD [address] [place] [address] [phone] 12/23/2025 10:00 AM EDT Medication Management [facility] MEDICINE [address] [place], [place] [phone] Janice Candelaria PharmD [address] [place] [address] documented as of this encounter Visit Diagnoses Diagnosis Type 2 diabetes mellitus without complication, unspecified whether fpc insulin use ([facility]) documented in this encounter Care Teams Real Estate Legal Secretary Relationship Specialty Start Date End Date Audrey Smith MD [address] [place], [place] [phone] PCP - General Family Medicine 11/20/17 Rao Mcdowell, VANE [address] [place] [address] Registered Nurse Family Medicine 11/29/24 Piedad Tolliver 11/29/24 documented as of this encounter
--- OUTSIDE RECORDS SUMMARY | 2025-04-14 16:58 | XMS_ITS ---
Author Organization [employer] Address 75 [facility] 7t [place] [address] Care Team Providers Care Diamond Wheel Molder Name Role Phone Audrey Smith MD Primary Care Provide r Rao Mcdowell RN Unavailable [phone] Piedad Tolliver Unavailable CM Complex Status:Enrolled (Active) Start date:11/29/2024 Enrollment date:02/23/2025 Enrollment reason:ADT Feed Overview ADT-[facility] ED 11/26/24 Case Team Name Relationship Phone Rao Mcdowell RN(Responsible Staff) Registered N [facility] [phone] Continued Care and Services Coordination
--- OUTSIDE RECORDS SUMMARY | 2025-04-14 16:58 | XMS_ITS | Encounter Summary ---
Author Organization [employer] Address 75 [facility] 7t [place] [address] Care Team Providers Care Television Engineering Teacher Name Role Phone Audrey Smith MD Primary Care Provide r Rao Mcdowell RN Unavailable [phone] Piedad Tolliver Unavailable Reason for Visit * Reason Comments Med Refill Encounter Details Date Type Department Care Team ([facility] Contact Info) Description 01/10/[address] [facility] MEDICINE [address] [place] [phone] NameSameer MD [address] [place] [phone] Social History Tobacco Use Types Packs/Day Years [...] Upcoming Encounters Date Type Department Care Team ([facility] Contact Info) Description 05/10/2025 1:00 PM EDT Immunization [facility] MEDICINE [address] [place] [address] [phone] 06/09/2025 9:00 AM EST Office Visit [facility] MEDICINE [address] [place] [phone] Audrey Smith MD [address] [place], [place] 12/23/2025 10:00 AM EDT Medication Management [facility] MEDICINE [address] [place] [address] Janice Candelaria PharmD [address] [place] [address] documented as of this encounter Visit Diagnoses Not on filedocumented in this encounter Care Teams Television Engineering Teacher Relationship Specialty Start Date End Date Audrey Smith MD [address] [place], [place] [phone] PCP - General Family Medicine 11/20/17 Rao Mcdowell, RN [address] [place] [address] 48660 Registered Nurse Family Medicine 11/29/24 Piedad Tolliver 11/29/24 documented as of this encounter
--- OUTSIDE RECORDS SUMMARY | 2025-04-14 16:58 | XMS_ITS ---
Author Organization [employer] Address 75 [facility] 7t [place] [address] Care Team Providers Care Artist Consultant Name Role Phone Audrey Smith MD Primary Care Provide r Rao Mcdowell RN Unavailable [phone] Piedad Tolliver Unavailable CHW Complex Status:Enrolled (Active) Start date:11/29/2024 Enrollment date:12/06/2024 Enrollment reason:ADT Feed Overview ADT-[facility] ED 11/26/24 Case Team Name Relationship Phone Piedad Tolliver(Responsible Staff) Continued Care and Services Coordination
--- OUTSIDE RECORDS SUMMARY | 2025-04-14 16:58 | XMS_ITS | Encounter Summary ---
Author Organization [employer] Address 75 [facility] 7t [place] [address] Care Team Providers Care Endoscopy Nurse Name Role Phone Audrey Smith MD Primary Care Provide r Rao Mcdowell RN Unavailable [phone] Piedad Tolliver Unavailable Reason for Visit * Reason Comments Med Refill Encounter Details Date Type Department Care Team ([facility] st Contact Info) Description 10/22/2024 Refill [facility] MEDICINE [address] [place] [address] Audrey Smith MD [address] [place] [address] Diabetic polyneuropathy associated with type 2 diabetes mellitus ([facility]/HCC) Social History Tobacco Use Types Packs/Day [...] the past 12 months, has t he [employer] gas, oil or water [employer] threatened to shut off services in your [...] Info) Description 05/10/2025 1:00 PM EDT Immunization [facility] MEDICINE [address] [place] [phone] 06/09/2025 9:00 AM EST Office Visit [facility] MEDICINE [address] [place] [phone] Audrey Smith MD [address] [place] [address] 12/23/2025 10:00 AM EDT Medication Management [facility] MEDICINE [address] [place] [address] Janice Candelaria, PharmD [address] [place] [address] documented as of this encounter Visit Diagnoses Diagnosis Diabetic polyneuropathy associated with type 2 diabetes mellitus (CMS/HCC) documented in this encounter Additional Health Concerns Assessment Noted Time PHQ-9 Depression Total Score: 0 05/21/20 24 9:38 AM EDT documented as of this encounter Care Teams Endoscopy Nurse Relationship Specialty Start Date End Date Audrey Smith MD [address] [place] [address] PCP - General Family Medicine 11/20/17 Rao Mcdowell, VANE [address] [place] [address] 31786 Registered Nurse Family Medicine 11/29/24 Piedad Tolliver 11/29/24 documented as of this encounter
--- OUTSIDE RECORDS SUMMARY | 2025-04-14 16:58 | XMS_ITS | Encounter Summary ---
Author Organization [employer] Address 75 [facility] 7t [place] [address] Care Team Providers Care Inspector Barrel Name Role Phone Audrey Smith MD Primary Care Provide r Rao Mcdowell RN Unavailable [phone] Piedad Tolliver Unavailable Encounter Details Date Type Department Care Team (Late st Contact Info) Description 08/30/2022 Orders Only [facility] MEDICINE [address] [place] [address] 244[address] Vane Cervantes MD [address] [place] [address] [phone] Muscle spasm (Primary Dx) Social History Tobacco [...] 1:00 PM EDT Immunization [facility] MEDICINE [address] [place] [address] [phone] 06/09/2025 9:00 AM EST Office Visit [facility] MEDICINE [address] [place] [address] [phone] Audrey Smith MD [address] [place] [address] [phone] 12/23/2025 10:00 AM EDT Medication Management [facility] MEDICINE [address] [place] [address] Janice Candelaria, Chiki [address] [place] [address] documented as of this encounter Visit Diagnoses Diagnosis Muscle spasm- Primary Spasm of muscle documented in this encounter Care Teams Inspector Barrel Relationship Specialty Start Date End Date Audrey Smith MD [address] [place] [address] PCP - General Family Medicine 11/20/17 Rao Mcdowell, RN [address] [place] [address] 32156 Registered Nurse Family Medicine 11/29/24 Piedad Tolliver 11/29/24 documented as of this encounter
--- OUTSIDE RECORDS SUMMARY | 2025-04-14 16:58 | XMS_ITS | Encounter Summary ---
Author Organization [employer] Address 75 [facility] 7t [place] [address] Care Team Providers Care Caterer'S Aide Name Role Phone Audrey Smith MD Primary Care Provide r Rao Mcdowell RN Unavailable [phone] Piedad Tolliver Unavailable Encounter Details Date Type Department Care Team (Late st Contact Info) Description 03/27/2023 Orders Only [facility] MEDICINE [address] [place] [address] ProviderNatasha MD Social History Tobacco Use Types [...] Department Care Team (Late Contact Info) Description 05/10/2025 1:00 PM EDT Immunization [facility] MEDICINE [address] [place] [phone] 06/09/2025 9:00 AM EST Office Visit [address] [address] Audrey Smith MD [address] [place] [address] 12/23/2025 10:00 AM EDT Medication Management [facility] MEDICINE [address] [place] [address] Janice Candelaria, PharmD [address] [place] [address] documented as of this encounter Procedures Procedure [...] AM EDT Narrative 03/30/2023 11:21 AM EDT [facility] [address] [place] [address] XRay Report Signed Patient: Owen Montano MR#: [id number] : 1970 Acct:[id number] Age/Sex: 52 / M ADM Date: 03/30/23 Loc: HO.ED Attending Dr: Ordering Physician: Ada Mcintosh NP Date of Service: 03/30/23 Procedure(s): XR hip RT w PEL1V Accession Number(s): [id number] cc: Audrey Smith MD; Ada Mcintosh NP [...] in OV> 03/30/23 1117 DD/ 1046 TD/TT: Import/Export Agent: Procedure Note Donotuseinterpreter, Image - 03/30/2023 [facility] [address] [place] [address] XRay Report Signed Patient: Owen MontanoMR#: [id number] : 1970Acct:[id number] Age/Sex: 52 / MADM Date: 03/30/23 Loc: HO.ED Attending Dr: Ordering Physician: Ada Mcintosh NP Date of Service: 03/30/23 Procedure(s): XR hip RT w PEL1V Accession Number(s): [id number] cc: Audrey Smith MD; Ada Mcintosh NP [...] in OV> 03/30/23 1117 DD/ 1046 TD/TT: Import/Export Agent: [facility] External Provider IMG XR PROCEDURES Final Result * Hm Colonoscopy (05/22/2021) Historical Provider HEALTH MAINTENANCE Final Result documented in this encounter Visit Diagnoses Not on filedocumented in this encounter Care Teams Caterer'S Aide Relationship Specialty Start Date End Date Audrey Smith MD [address] [place] [address] PCP - General Family Medicine 11/20/17 Rao Mcdowell, RN [address] [place] [address] 39[address] Registered Nurse Family Medicine 11/29/24 Piedad Tolliver 11/29/24 documented as of this encounter
--- OUTSIDE RECORDS SUMMARY | 2025-04-14 16:58 | XMS_ITS | Encounter Summary ---
Author Organization [employer] Address 75 [facility] 7t [place] [address] Care Team Providers Care Cool Roofing Installer Name Role Phone Audrey Smith MD Primary Care Provide r Rao Mcdowell RN Unavailable [phone] Piedad Tolliver Unavailable Reason for Visit * Reason Comments Med Refill Encounter Details Date Type Department Care Team ([facility] st Contact Info) Description 11/01/2024 Refill [facility] MEDICINE [address] [place] [address] Audrey Smith MD [address] [place] [address] Diabetic polyneuropathy associated with type 2 diabetes mellitus ([facility]/HCC) Social History Tobacco Use Types Packs/Day Years [...] the past 12 months, has t he [employer] gas, oil or water [employer] threatened to shut off services in your [...] Info) Description 05/10/2025 1:00 PM EDT Immunization [facility] [address] [place] [address] 06/09/2025 9:00 AM EST Office Visit [facility] MED[facility] [address] [place] [address] Audrey Smith MD [address] [place] [address] 12/23/2025 10:00 AM EDT Medication Management [facility] [address] [place] [address] Janice Candelaria, PharmD [address] [place] [address] documented as of this encounter Visit Diagnoses Diagnosis Diabetic polyneuropathy associated with type 2 diabetes mellitus (CMS/HCC) documented in this encounter Additional Health Concerns Assessment Noted Time PHQ-9 Depression Total Score: 0 05/21/20 24 9:38 AM EDT documented as of this encounter Care Teams Cool Roofing Installer Relationship Specialty Start Date End Date Audrey Smith MD [address] [place] [address] PCP - General Family Medicine 11/20/17 Rao Mcdowell, VANE [address] [place] [address] Registered Nurse Family Medicine 11/29/24 Piedad Tolliver 11/29/24 documented as of this encounter
--- OUTSIDE RECORDS SUMMARY | 2025-04-14 16:58 | XMS_ITS | Encounter Summary ---
Author Organization [employer] Address 75 [facility] 7t [place] [address] Care Team Providers Care Machine Wood Sander Name Role Phone Audrey Smith MD Primary Care Provide r Rao Mcdowell RN Unavailable [phone] Piedad Tolliver Unavailable Reason for Visit * Reason Comments Med Refill Encounter Details Date Type Department Care Team ([facility] st Contact Info) Description 12/17/2024 Refill [facility] MEDICINE [address] [place] [address] [facility] [address] [place], [place] [phone] Diabetic polyneuropathy associated with type 2 diabetes [...] Info) Description 05/10/2025 1:00 PM EDT Immunization [facility] MEDICINE [address] [place] [address] 06/09/2025 9:00 AM EST Office Visit [facility] MEDICINE [address] [place] [address] Audrey Smith MD [address] [place] [address] 12/23/2025 10:00 AM EDT Medication Management [facility] [address] [place] [address] Janice Candelaria, PharmD [address] [place] [address] documented as of this encounter Visit Diagnoses Diagnosis Diabetic polyneuropathy associated with type 2 diabetes mellitus (CMS/HCC) documented in this encounter Additional Health Concerns Assessment Noted Time PHQ-9 Depression Total Score: 0 05/21/20 24 9:38 AM EDT documented as of this encounter Care Teams Machine Wood Sander Relationship Specialty Start Date End Date Audrey Smith MD [address] [place] [address] PCP - General Family Medicine 11/20/17 Rao Mcdowell, VANE [address] [place] [address] Registered Nurse Family Medicine 11/29/24 Piedad Tolliver 11/29/24 documented as of this encounter
--- OUTSIDE RECORDS SUMMARY | 2025-04-14 16:59 | XMS_ITS | Clinical Summary ---
Author Organization [email or web address] Address [address] [facility] [address] [place] [address] Care Team Providers Care Obstetrician And Gynaecologist Name Role Phone Audrey Smith MD Primary Care Provide r Rao Mcdowell RN Unavailable Piedad Tolliver Unavailable Allergies No known active [...] MG 24 hr tablet 023 Active Zenpep 5000-16665 units capsule delayed-release particles capsule Take 1 [...] hyperglycemia, without long-term current use of insulin ([facility]) 1 kit 2 times [...] every 3 (three) months. Administered at office ([facility]) Active clopidogrel (Plavix) 75 MG tabletIndications :Coronary artery disease involving [place] coronary artery of [place] heart, unspecified whether angina present TAKE 1 TABLET BY MOUTH EVERYDAY AT NOON 90 tablet 1 025 Active aspirin (Aspirin Low Dose) 81 MG EC tabletIndications :Coronary artery disease involving [place] coronary artery of [place] heart, unspecified whether angina present TAKE 1 [...] 24 hr tabletIndications :Coronary artery disease involving [place] coronary artery of [place] heart, unspecified whether angina present TAKE 1 TABLET BY MOUTH EVERYDAY AT NOON 90 tablet 1 025 Active empagliflozin (Jardiance) 25 MGIndications:Typ e 2 diabetes mellitus with hyperglycemia, without long-term current use of insulin ([facility]) Take 1 tablet (25 mg) by mouth Once per day. 30 tablet 025 2025 Active metFORMIN XR (Glucophage-XR) 500 MG 24 hr tablet Take 2 tablets by mouth with evening meal. Active glipiZIDE XL (Glucotrol XL) 2.5 MG 24 hr tabletIndications :Type 2 diabetes mellitus without complication, unspecified whether terminal press operator insulin use ([facility]) TAKE 1 TABLET BY MOUTH EVERYDAY AT NOON 90 tablet 1 Active glucose blood (FREESTYLE LITE) test stripIndications: Type 2 diabetes mellitus with hyperglycemia, without long-term current use of insulin ([facility]) TEST BLOOD SUGAR TWICE DAILY 50 strip Active TRUEplus Lancets 33G miscIndications:T ype 2 diabetes mellitus with other specified complication, without long-term current use of insulin ([facility]) TEST BLOOD SUGAR TWICE DAILY 100 each 11 025 Active gabapentin (Neurontin) 400 MG capsuleIndication s:Diabetic polyneuropathy associated with type 2 diabetes mellitus ([facility]) TAKE 1 CAPSULE BY MOUTH AT NOON, EVENING, AND BEDTIME 90 capsule 1 025 Active Tirzepatide (Mounjaro) 2.5 MG/0.5ML solution auto-injectorIndi cations:Type 2 diabetes mellitus with hyperglycemia, without long-term current use of insulin ([facility]) Inject 2.5 mg under the skin 1 (one) time per week. 2 mL 2 Active Blood Glucose Monitoring Suppl (FreeStyle Hospers Lite) w/Device kitIndications:Ty pe 2 diabetes mellitus with hyperglycemia, without long-term current use of insulin ([facility]) Use to test blood sugar 1 times daily 1 kit 025 Active FREESTYLE LITE test stripIndications: Type 2 diabetes mellitus with hyperglycemia, without long-term current use of insulin ([facility]) Use to test blood sugar 1 times daily 100 each 12 025 2025 Active Lancets miscIndications:T ype 2 diabetes mellitus with hyperglycemia, without long-term current use of insulin ([facility]) Use to test blood sugar 1 times daily 100 each 025 Active Alcohol Swabs 70 % padsIndications:T ype 2 diabetes mellitus with hyperglycemia, without long-term current use of insulin ([facility]) Use to test blood sugar 1 times [...] tells me she he was out of [facility] because of insurance and just started [...] of colon 11/20/2017 Hyperuricemia 11/20/2017 CAD in [place] artery 11/20/2017 Benign prostatic hyperplasia with nocturia [...] will continue with same medications, I extensibly international student counselor him about diabetic diet and let him know his glucose also will likely go down after back injections wears out - Encounters Date Type Department Care Team Description 03/30/2025 Orders Only [facility] [address] [place] [address] Audrey Smith MD S/P insertion of spinal cord stimulator (Primary Dx) 03/24/2025 Orders Only [facility] [address] [place] [address] Audrey Smith MD S/P insertion of spinal cord stimulator (Primary Dx) 03/24/2025 Orders Only [address] [address] Audrey Smith MD Type 2 diabetes mellitus with hyperglycemia, without long-term current use of insulin ([facility]) (Primary Dx) 03/24/2025 Patient Outreach [address] [address] Audrey Smith MD Care Management (C3CM- F/U call # 1) 03/17/2025 9:15 AM EDT Office Visit [address] [address] Audrey Smith MD Essential hypertension (Primary Dx); Type 2 diabetes mellitus with hyperglycemia, without long-term current use of insulin ([facility]); Dietary counseling; Exercise counseling; Depression with anxiety 03/17/2025 Travel 03/16/[address] [phone] Audrey Smith MD chart prep 03/10/2025 11:00 AM EDT Office Visit [facility] [address] [place], [place] [phone] Presbyopia of both eyes (Primary Dx) 03/10/2025 Patient Outreach [address] [address] Audrey Smith MD Pre-visit Planning (SDOH screening completed on 12/06/2024) 02/25/2025 Plan of Care Documentation [address] [phone] 02/23/2025 Patient Outreach [address] [address] Audrey Smith MD Care Management (C3- Initial assessment/enrollment ) 02/22/2025 Patient Outreach [address] [address] Audrey Smith MD Care Coordination (C3 -[facility] telephone call outreach) 02/19/[address] [address] Audrey Smith MD Diabetic polyneuropathy associated with type 2 diabetes mellitus ([facility]) 02/11/2025 Patient Outreach [address] [address] Audrey Smith MD Care Coordination ([address] [place] telephone call outreach ) 02/03/2025 Orders Only GENERIC EXTERNAL DATA DEPARTMENT Provider, Generic External Data 01/28/2025 Patient Outreach [address] [address] Audrey Smith MD Care Coordination (////) 01/27/2025 Refill [facility] [address] [place] [address] Audrey Smith MD Type 2 diabetes mellitus with other specified complication, without long-term current use of insulin (CMS/HCC) 01/17/2025 Refill [facility] [address] [place] [phone] Audrey Smith MD Type 2 diabetes mellitus without complication, unspecified whether mcfp insulin use ([facility]); Type 2 diabetes mellitus with hyperglycemia, without long-term current use of insulin ([facility]) 01/15/2025 Refill [facility] [address] [place] [address] Audrey Smith MD Type 2 diabetes mellitus with hyperglycemia, without long-term current use of insulin ([facility]) from Last 3 Months Immunizations Immunization Administration [...] Info) Description 05/10/2025 1:00 PM EDT Immunization [facility] [address] [place] [phone] 06/09/2025 9:00 AM EST Office Visit [address] [address] Audrey Smith MD [address] [place] [phone] 12/23/2025 10:00 AM EDT Medication Management [facility] [address] [place] [phone] Janice Candelaria, PharmD [address] [place] [phone] Health Maintenance Due Date Last Done Comments [...] hyperglycemia, without long-term current use of insulin ([facility]) POCT GLYCATED HEMOGLOBIN, TOTAL Routine 03/17/2025 9:00 AM EDT Type 2 diabetes mellitus with hyperglycemia, without long-term current use of insulin ([facility]) POCT GLUCOSE Routine 03/17/2025 8:58 AM EDT Type 2 diabetes mellitus with hyperglycemia, without long-term current use of insulin ([facility]) TESTOSTERONE, TOTAL, MALES (ADULT), [place] Routine 02/03/2025 7:23 AM EDT LIPID PANEL, STANDARD Routine 08/25/2024 7:10 AM EST HM COLONOSCOPY Routine 05/22/2021 [facility] HISTORICAL HIV AB/AG Routine 10/01/2019 10:28 AM EDT from Last 3 Months or Most Recently Relevant to Health Maintenance Results * Albumin, Random Urine W/Creatinine (03/17/2025 9:45 AM EDT) Creatinine, Urine 46.49 mg/dL [facility] Microalbumin Urine <5.0 mg/L [facility] Microalbum Creatinine Ratio Ur TNP <30 ug/mg cr [facility] Comment:Unable to calculate albumin/creatinine ratio due to lowmicroalbumin or creatinine result. Urine (Urine, Random) 03/17/2025 9:45 AM EDT 03/17/2025 11:07 AM EDT Audrey Holman MD LAB URINE ORDERABLES Final Result [facility] [address] [place] [phone] * (ABNORMAL) POCT HGB A1C (03/17/2025 9:00 AM EDT) Hemoglobin A1C 7.7(A) 4.0 - 5.7 % QC Media Lot # [id number] Lot# Expiration Date ,[id number] Blood 03/17/2025 9:00 AM EDT Audrey Holman MD POINT OF CARE TEST ENTER/EDIT ORDERABLES Edited Result - Final * (ABNORMAL) POCT Glucose (03/17/2025 8:58 AM EDT) Glucose Blood, POC 258(A) 60 - 200 mg/dL QC Media Lot # [id number] Lot# Expiration Date ,503,724 Blood Capillary blood specimen / Unknown 03/17/2025 8:58 AM EDT Audrey Holman MD POINT OF CARE TEST EN TER/EDIT ORDERABLES Final Result * Testosterone, Total, males (Adult), [place] (02/03/2025 7:23 AM EDT) Pathologist [facility] Testosterone, Total 447 250 - 1100 ng/dL [facility] Comment:For additional infor gunnar, please refer tohttp://education.[employer]/faq/[email or web address](This link is being provided for informational/educational purposes only.)This test was developed and its analytical performancecharacteristics have been determined by [facility], [place]. It hasnot been cleared or approved by the U.S. Food and DrugAdministration. This assay has been validated pursuantto the CLIA regulations and is used for clinicalpurposes.THIS TEST WAS PERFORMED AT:[employer] [place] [id number] FU MD,PHD 02/03/2025 7:23 AM EDT 02/03/2025 7:23 AM EDT Generic External Data Provider LAB BLOOD ORDERAB LES Final Result [facility] [address] [place] [phone] * (ABNORMAL) Lipid Panel, Standard (08/25/2024 7:10 AM EST) Triglycerides 181(H) <150 mg/dL [facility] Comment:Desirable Triglyceri de: less than 150 mg/dLBorderline High Triglyceride 150-199 mg/dLHigh Triglyceride: 200-499 mg/dLVery High Triglyceride: greater than or equal to 5OO mg/dL Cholesterol 142 <200 mg/dL [facility] Comment:Desirable Cholestero l: less than 200 mg/dLBorderline High Cholesterol: 200-239 mg/dLHigh Cholesterol: greater than 239 mg/dL LDL Cholesterol Calculated 68 <100 mg/dL [facility] Comment:Desirable LDL: less than 100 mg/dLNear Optimal/Above Optimal LDL: 110- 129 mg/dLBorderline High LDL: 130-159 mg/dLHigh LDL: 160-189 mg/dLVery High LDL: greater than or equal to 190 mg/dL HDL Cholesterol 38(L) >40 mg/dL [facility] Comment:Desirable HDL: great er than 40 mg/dL Note: This HDL assay may give artificially low results in patients with liver disease. 08/25/2024 7:10 AM EST 08/25/2024 7:10 AM EST us Generic External Data Provider LAB BLOOD ORDERAB LES Final Result [facility] [address] [place] [phone] * Hm Colonoscopy (05/22/2021) us Historical [...] of detection of this assay. The [employer] HIV Ag/Ab Combo assay result and supplemental assay results should be interpreted in conjunction with the patient's clinical presentation, history and other laboratory results. If the results are inconsistent with clinical evidence, additional testing is suggested to confirm the result. 10/01/2019 10:2 8 AM EDT Audrey Holman MD HISTORICAL/NON ORDERA BLE LABS Final Result [facility] [address] from Last 3 Months or Most Recently Relevant to Health Maintenance Insurance [facility] [facility] Care Teams Obstetrician And Gynaecologist Relationship Specialty Start Date End Date Audrey Smith MD [address] [place] [phone] PCP - General Family Medicine 11/20/17 Rao Mcdowell, RN [address] [place] [phone] Registered Nurse Family Medicine 11/29/24 Piedad Tolliver 11/29/24
== END ==
LOC: HO.CARD 11:59
PROVIDERS: PCP Internal Medicine; Visit Provider Internal Medicine
DX: I25.10 Atherosclerotic heart disease of native coronary artery without angina pectoris (principal)
CPT/HCPCS: 93306; Q9957

== ENCOUNTER → 2025-04-14 12:09 | Outpatient (BNV) | payer MEDICAID, SELFPAY | PROVIDERS: PCP Internal Medicine; Visit Provider Internal Medicine Cardiovascular Disease | DX: I25.10 Atherosclerotic heart disease of native coronary artery without angina pectoris (principal) | CPT/HCPCS: 93306 ==

== ENCOUNTER 2025-04-28 08:39 | Outpatient (REF) | payer MEDICAID, SELFPAY | END 2025-04-28 08:40 | disposition home or self-care (01) | LOC: HO.LAB 08:39 | PROVIDERS: PCP Internal Medicine; Visit Provider Urology | DX: E29.1 Testicular hypofunction (principal) | CPT/HCPCS: 36415; 84403 ==

== ENCOUNTER → 2025-04-29 08:29 | Outpatient (REF) | payer MEDICAID, SELFPAY ==
--- NOTE | ~2025-04-29 | NM_ITS ---
Lexiscan Myocardial perfusion study Indication: Chest pain Technique: The patient was brought in for a Lexiscan perfusion study on 04/29/2025 and was injected 0.4 mg of Lexiscan intravenously. Within a minute of this injection 25 mCi of sestamibi was given intravenously. Images were obtained using the SPECT gamma camera interlaced with the gating device. Images were obtained in supine position. Resting perfusion study was performed on 05/04/2025. Patient was administered 25 mCi of sestamibi intravenously at rest. Images were then obtained in supine position. Total DLP 66 mGy-cm. Images were processed with the software and compared side to side in short axis, horizontal long axis and vertical long axis views. Findings: Raw aquisition reviewed. The stress perfusion study showed no significant perfusion abnormality. Both uncorrected as well as CT attenuation corrected images were reviewed. The gated study shows normal LV systolic function with calculated LVEF of 52%. LV cavity is normal in size. The gated study shows normal wall thickening and contraction of segments. Resting study shows no significant perfusion abnormality. Gating at rest reveals normal wall motion with ejection fraction at 56%. The findings are consistent with no clear reversible or fixed perfusion abnormality. NM/NM cardiolite stress test Impression: 1. Myocardial perfusion imaging study shows normal myocardial perfusion. 2. Gated LVEF is 52% during stress and 56% during rest. 3. Transient ischemic dilatation not present. EKG component of the test reported separately. Electronically signed by: Bob Driscoll MD 05/05/2025 04:19 PM EDT
--- NOTE | 2025-04-29 08:32 | CA_ITS ---
Acquisition Time: 2025-04-29 08:54:49 Total Exercise Time: 00:02:00 Test Indications: cp Medications: see h&p Protocol: LEXISCAN Max HR: 106 BPM 64% of Pred: 165 BPM Max BP: 108/70 mmHG Max Work Load: 1.6 METS Pharmacological stress test with Lexiscan injection, while walking slow on treadmill, with report of shortness of breath, with isolated PVC, with normotensive response to injection, with nondiagnostic EKG for ischemia. In recovery his shortness of breath resolved. Nuclear images pending. Test reviewed with Dr Eugene Referred By: Bob Driscoll Electronically Signed By: TANISHA MCNEIL
--- OUTSIDE RECORDS SUMMARY | 2025-04-29 08:43 | XMS_ITS | Clinical Summary ---
Author Organization [facility] Address [address] [place] [address] Care Team Providers Care Hair Colorist Name Role Phone Unavailable Primary Care Provider [...]
== END ==
LOC: HO.CARD 08:29
PROVIDERS: PCP Internal Medicine; Visit Provider Internal Medicine
DX: R07.2 Precordial pain (principal); I25.10 Atherosclerotic heart disease of native coronary artery without angina pectoris
CPT/HCPCS: 78452; 93017; A9500; J0280; J2785

== ENCOUNTER → 2025-04-29 08:32 | Outpatient (BNV) | payer MEDICAID, SELFPAY | PROVIDERS: PCP Internal Medicine; Visit Provider Nurse Practitioner Family | DX: R07.9 Chest pain, unspecified (principal) | CPT/HCPCS: 78452; 93016; 93018 ==

== ENCOUNTER 2025-05-12 10:01 | Outpatient (AMB) | payer MEDICAID, SELFPAY ==
--- NOTE | 2025-05-12 11:25 | A.OFFVIS_ITS ---
Intake Visit Reasons: Testopel/labs Intake Note: Patient is present for 12W/TESTOPEL Urology Medication: TAMSULOSIN,OXYBUTYNIN,TESTOSTERONE Antibiotic Allergy:NONE Blood Thinner:ASPIRIN Clopidogrel Labs done 04/28/2025 : Total Testosterone Automobile Mechanic Assistant Required: Yes Automobile Mechanic Assistant Language: Luxembourgish Accompanied by: Self / Same As Patient Allergies No Known Allergies (No Known Allergies*) Allergy (Verified 04/08/25 09:41) HPI Comments Details: Owen is Luxembourgish-speaking male. He is a patient of Dr. Holman. He is seen for the following urologic conditions - hypogonadism - bladder outlet obstruction Luxembourgish translation provided by qualified medical coding instructor Here for testosterone pellet insertion insertion #4 Reviewed lab work Good response Right side insertion Testosterone Initial 935 425 #2 783 450 #3 645 Has had difficulties injecting the correct amount of testosterone due to needle phobia Also had highly variable hematocrit Previously failed T gel secondary to absorption issues Instructed to repeat lab work at 2 weeks and 10 weeks with follow-up testosterone pellets at 12 weeks He has had difficulty with injecting the correct amount and has to have his partner give the shots since he is scared of needles Given peak and trough with injections every 2 weeks and high hematocrit would recommend trying testopel Hypogonadism Longstanding Testosterone replacement started in [place] Continues with 1.0 cc 200 milligram/mL injection every 2 weeks - injection day Friday - laboratory day Friday - knows to do labs mid cycle Laboratories - 05/10 T 604, PSA 0.7, Hct 47.5, 11/09 T 1171 0.8 53, 05/11 T 1012 52, 11/10 T 388 H52, 05/11 T 890 P 0.8., 11/11 T 1200 Hct 53, 05/13 1061 295 51 Bladder outlet obstruction Initial weakness of stream and incomplete emptying Good response to tamsulosin with oxybutynin Controls nocturia [facility] Medical History (Updated 04/12/25 @ 12:58 by Jesu Wood MD) COVID-19 Hypogonadism Nocturnal hypoxemia SARTHAK (obstructive sleep apnea) Hypogonadism in male On beta catherine at home Hypothyroid IBS (irritable bowel syndrome) BPH (benign prostatic hyperplasia) Anxiety Allergic rhinitis COLON (nonalcoholic steatohepatitis) Elevated AFP Decreased libido Type 2 diabetes mellitus with unspecified complications Other and unspecified hyperlipidemia Essential hypertension Atherosclerotic cardiovascular disease Hypogonadism in male Surgical History (Updated 01/07/25 @ 13:12 by JOSELITO Browne) S/P placement of nerve stimulator History of esophagogastroduodenoscopy (EGD) Hx of colonoscopy History of cardiac cath History of cardiac cath Family History Father Cardiac disease Mother Cardiac disease Social History Are you a primary health care sanitary technician to a significant other at home: No Do you presently have visiting nurse or other home services: No Alcohol intake: former Patient Tobacco Use Status: Former Tobacco user Tobacco use type: Cigarette Review of Systems Const Denies chills and Denies fever(s) Card Reports no additional complaints and Denies syncope Resp Denies cough GI Denies abdominal pain and Denies heartburn Reports as per HPI and Denies change in libido Neuro Denies syncope Psych Denies change in libido Endo Denies change in libido Physical Exam Const General: cooperative, healthy appearing, comfortable and no acute distress Orientation/consciousness: patient oriented x3 HEENT Face and sinus: Yes normal facial exam Mouth: moist mucous membranes Neck Neck: Yes normal visual inspection, Yes full ROM and Yes trachea midline Chest Chest palpation & inspection: normal inspection of the chest Resp Effort & Inspection: normal respiratory effort, able to speak in complete sentences and no respiratory distress GI Inspection: Yes normal to inspection Back/Spine/Pelvis Cervical Spine: normal cervical lordosis Thoracic/Lumbar Spine: thoracic and lumbar spine normal to inspection Skin General skin exam: no rashes or lesions noted Neuro General: patient oriented x3, gait normal, tone normal and moves all extremities Extrem General: Yes normal to inspection and Yes capillary refill normal Office Procedures AMB Testopel Details: Testopel Placement Pre Op Diagnosis - Low testosterone Post Op Diagnosis - Low Testosterone Procedure: Testopel Insertion The patient was placed in left lateral position with left side down and right side up. The area over the right hip was cleaned with Betadine. A fenestrated drape was placed over the area. Lidocaine 2% was injected first as a skin wheal and then into the subcutaneous tissue directed in a fashion down towards the femur in the subcutaneous space to perform hydrodissection. The purpose of the injection is to numb the length of the trocar track. Testopel was prepared for insertion. Six Testopel pellets were removed from the individual glass containers and placed in a sterile container. This gave time for the lidocaine to work. A 11 Blade scapel was used to make a puncture incision into the subcutaneous space. The trocar with a sharp-ended stylet was inserted through the stab incision at a 45? angle and into the subcutaneous fat layer. The needle was flatten out and advanced leaving the pellet loading area exposed. 6 pellets were inserted using Adson forceps into the loading trocar in a V pattern. The blunt stylet was used to advance pellets into the tract while withdrawing the trocar - 4 pellets and 2 pellets placed in each arm of the V. Once completed the area was wiped with alchohol. Pressure was applied with a small gauze for 2-3 minutes. The trocar insertion site was closed with multiple steristrips and a 2x2 gauze placed with a tegaderm dressing placed. He tolerated the procedure well and was given instructions to remove the Tegaderm dressing in 48 hours. CPT 20880 J3490 Subcutaneous Hormone Pellet Insertion: 66321 Subq Hormone Pellet Insertion Office Meds Testopel 75 mg implant pellet Performing Provider: Eliezer Rivas MD Performing Location: [facility] Administered by: Sara Casper RN on 05/12/25 11:32 Dose Route Admin Location Dispensed Lot Number Expiration Date [facility] Paraprofessional Interpreter 75 mg implant 6 ea Total Dispensed Waste 6 ea 0 % lidocaine HCl 20 mg/mL (2 %) injection solution Performing Provider: Eliezer Rivas MD Performing Location: [facility] Administered by: Sara Casper RN on 05/12/25 11:32 Dose Route Admin Location Dispensed Lot Number Expiration Date [facility] Paraprofessional Interpreter 10 mL subcut 10 mL Total Dispensed Waste 10 mL 0 % Comments: Lidocaine and Testopel injected by Dr. Rivas. Assessment & Plan Assessment & Plan (1) Hypogonadism: Comment: Testosterone every 2 weeks Category: Medical (2) Decreased libido: Code(s): R68.82 - Decreased libido Category: Medical Plan Twelve week follow-up repeat pelvis Orders: Orders AMB Testosterone Pellet Implant Today E29.1 - Testicular hypofunction Medications: Refilled testosterone (Testopel) 6 pellets every 12 weeks. 75 mg implant .every 12 weeks 6 ea 2RF hypogonadism Patient Instructions: This note is constructed using voice recognition software. While every effort has been made to ensure accuracy traffic rate clerk errors may have been included. Imaging studies, laboratory and physical exam results were discussed and reviewed in detail. No major barriers to patient understanding were identified. An opportunity to ask questions regarding the treatment plan was provided. All questions were answered. The patient expressed understanding and agreement with the above treatment plan. The patient is aware they should contact our office by phone for worsening of their current condition or the appearance of new urologic symptoms. Compliance is encouraged with any medications and followup testing that is ordered. It is a privilege to participate in the urologic care of your patient. If you have any questions or concerns regarding treatment for the above conditions, or other urologic issues, please do not hesitate to contact me. The office telephone contact is [phone]. Sincerely, Dr Eliezer Rivas MD, [facility] - Urology Compassionate Specialist Care for the Genitourinary System Coding Level of Care Code Est Pt Level 3 (37475) Diagnoses Hypogonadism Decreased libido R68.82
--- OUTSIDE RECORDS SUMMARY | 2025-05-12 11:43 | XMS_ITS | Data Portability ---
Author Organization [facility] [employer] [facility], [id number] Address [address] [facility] [address] [place] [address] Care Team Providers Care Management Psychologist Name Role Phone ADRI REDDY Referring Provider MAINE MORELAND Automation Engineering Manager [phone] FREDY MORENO Psychiatrist Assessment No assessment recorded. [...] Organization Detail LastModifiedTime 08/24/19 25 08/24/2024 proce dures No observ ation record ed. [address], [address], 08/25/2024 09:45:35 08/24/1908/24/2024 xr fluor o up to 1 hour See Note [facility] [employer] [facility] , a member of [employer] [facility] Name: OWEN RODRIGUES Date of : 1970 Reason for Exam: pain Exam Date: 2024 [id number] EST Report Status : Final Orderi ng [...] Edit Transc ribed Date: 2024 13:23 ET [email or web address] [address], [address], 08/25/2024 09:45:35 Result Notes None recorded. Problems Name Problem SNOMED Code Status Onset Date Resolution Date Notes Provider Name and Address Organization Details Recorded Time Diabetic peripheral neuropathy 527591542 Active 025 Rock Balderas MD [facility] [place] - [facility] 5 11:30:01 Problem Notes None recorded. Medical Equipment None Reported. Allergies Allergen ID Allergen Name Allergen Category Reaction Reaction Severity Criticality Documentation Date Start Date Code Code System Note Provider Name and Address Organization Details Recorded Time 68175 No Allergy Informati on Available Not available Not available Not available Not available 08/31/2024 Comme nt: dfandrew e: Rere tobar; alma rosa e: Raymon marroquin; ; Not Available [employer] 5 16:49:03 Medications [...] Available No t Available BD Regular Bevel Penhook 18 gauge x 1 USE WITH testosteron [...] Available Not Available No t Available FreeStyle Shushan Lite kit USE TWICE DAILY active Not [...] Updated DateTime 5 165.1 cm 26.3 kg/m2 89182.5 9 g 63 /min 99 % 99 % 98 [degF] 110/72 mm[Hg] Kailyn [facility] 5 11:18:47 Social History None recorded. Functional Status None recorded. Mental Status None recorded. Family History Nothing Reported. Medical History Condition Response Diabetes Y Thyroid Problems Y Hypertension Y Past Encounters Encounter ID Performer Location Encounter Start Date Encounter Closed Date Diagnosis/Indication Diagnosis SNOMED-CT Code Diagnosis ICD10 Code Diagnosis IMO Codes Diagnosis Note [id number] Rock Balderas MD [id number] [facility] [address] [phone] 08/31/2024 09:37:10 08/31/2024 12:26:48 Diabetic peripheral neuropathy 796489356 E11.40 -patient with long-stand ing history of [...] tomorrow -his current psychiatri st (Dr. Moreno-- [facility]--[phone] ) -will coordinate with Dr. Davenport for permanent SCS implant; will need to hold plavix prior to this procedure as well (Dr. Gary patel--[facility] ) -20 minutes was used for chart review, interviewi ng/examini ng, and counseling the patient during today's visit, and patient denies having any other further questions/ concerns [id number] Rock Badleras MD [id number] [place] [address] [facility] [address] [place] [address] 11/02/2024 11:11:23 11/02/2024 13:04:56 Diabetic peripheral neuropathy 167480648 E11.40 -patient with long-stand ing history of bilateral foot pain, likely 2/2 diabetes and HTN induced neuropathy -patient did quite well with SCS trial, and underwent SCS implant on 10/04/24; currently reports that pain is significan tly improved -his current psychiatri st (Dr. Moreno-- [facility]-- [phone] ) -35 minutes was used for chart [...] Price Member ID Guarantor Name 10/30/2024 1 [place]: [facility] Owen Hurd [id number] Owen Rio Hurd Notes Date Note Type Note Provider Name and Address Organization Details Recorded Time 08/31/2024 text/html ROS as noted in the HPI Owen Hurd is a pleasant 53 y.o. year old male, who has a past medical history of Diabetes mellitus (HCC), Disease of thyroid gland, Hypercholesteremia, Hypertension, and Sleep apnea. CAD s/p stentx3, who presents with moderate bilateral foot/ankle pain for several years. he denies any inciting events. Of note, patient is on PLAVIX (sees [facility]).he reports that performing activities of daily [...] applied to insertion sites. Rock Balderas MD [facility] [place] - [facility] 11/02/2024 12:21:06 11/02/2024 text/html ROS as noted in the HPI Owen Hurd is a pleasant 53 y.o. year old male, who has a past medical history of Diabetes mellitus (HCC), Disease of thyroid gland, Hypercholesteremia, Hypertension, and Sleep apnea. CAD s/p stentx3, who presents with moderate bilateral foot/ankle pain for several years. he denies any inciting events. Of note, patient is on PLAVIX (sees [facility]).he reports that performing activities of daily [...] SCS implant on 10/04/24. We had the telesales representative from [employer] also present at today's visit. With additional [...] sites are healing well. Rock Balderas MD [facility] [place] - [facility] 11/02/2024 12:40:27
--- OUTSIDE RECORDS SUMMARY | 2025-05-12 11:43 | XMS_ITS | Clinical Summary ---
Author Organization [facility] Address [address] [place] [address] Phone Care Team Providers Care All Around Patternmaker Name Role Phone Audrey Smith MD Primary [...] not requiring any pain medication. Sarbjit from [employer] is here as well to go over [...] pain med refills today. We used [employer] fight manager Leeanna #[id number], Morgan #[id number]. Chronic pain syndrome 09/21/2024 Diabetic neuropathy, painful ([facility] V24, [facility] V28) 09/14/2024 Assessment & Plan (09/14/2024 4:44 PM EST): I reviewed the steps involved in placement of the spinal cord stimulator leads and generator with the patient in conjunction with Sarbjit the district representative from [employer] and a senior air director. I demonstrated the position of each incision [...] hyperglycemia, without long-term current use of insulin ([facility] V24, [facility] V28) 12/04/2022 Stented coronary artery 11/20/2017 Essential hypertension 11/20/2017 Anxiety 11/20/2017 Acquired hypothyroidism 11/20/2017 Immunizations Immunization Administration Dates Next Due COVID-19 (Moderna/Spikevax) 12yo and older 07/10/2022 Hepatitis B (Lznshes-Q-Mkpyi , Recombivax HB-Adult) 19yo and older 12/07/2020,01/25/2019,12/25/2018 [...] IMPLANT 10/04/2024 Dr. Davenport and Dr. Parsons, [facility] Medical History Medical History Date Comments Diabetes mellitus ([facility] V24, [facility] V28) Hypertension Disease of thyroid gland [...] Safety Answer Date Record ed Physical Abuse Unrecognized value 10/04/2024 Verbal Abuse Unrecognized value 10/04/2024 Sex and Gender Information Value Date [...] Care Team (Late st Contact Info) Description 05/25/2025 10:00 AM EST Office Visit Orthopedic Surgery - [place] [address] [phone] Aaron Graves, DPFauzia [address] [address] Health Maintenance Due Date Last Done Comments Colorectal Cancer Screening: Colonoscopy 1970 Diabetes: Annual Foot Exam 11/07/1979 Diabetes: Annual Retina Eye Exam 11/07/1979 RSV Immunization Adult Patients (1 - Risk 50-74 years 1-dose series) 11/07/2019 HIV Screening 08/15/2023 Hepatitis C Screening 08/15/2023 [...] this topic Medical Devices Implanted Type Area Retail Sales Director Device Identifier Shelf Expiration Date Model / Serial / Lot Lead Linear Trial - [id number] - [id number] Implanted:Qty : 1 on 08/24/2024 by Rock Parsons MD at [facility] Neurostim Right: Back [employer] 03/23/2026 [id number] / [id number] / [id number] Lead Linear Trial St - [id number] - [id number] Implanted:Qty : 1 on 08/24/2024 by Rock Parsons MD at [facility] Neurostim Left: Back [employer] 03/15/2026 [id number] / [id number] / [id number] Generator Implant Pulse Ww Alpha - [id number] - [id number] Implanted:Qty : 1 on 10/04/2024 by Cara Davenport MD at [facility] Neurostim Left: Back [employer] [id number] 06/22/2026 [id number] / [id number] / [id number] Powder Surgifoam Absorb Gel - Sna - [id number] Implanted:Qty : 1 on 10/04/2024 by Cara Davenport MD at [facility] [employer]ics Left: Back [employer] [id number] 06/28/20261977 / NA / [id number] Linearv Contact Lead Set Implanted:Qty : 1 on 10/04/2024 by Cara Davenport MD at [facility] Left: Back [employer] 08/13/2026 [id number] / [id number] / [id number] Linear Contact Lead Kit Implanted:Qty : 1 on 10/04/2024 by Cara Davenport MD at [facility] Left: Back [employer] 08/13/2026 [id number] / [id number] / [id number] Insurance MEDICAID - [place] Advance Directives [...] currently active code status orders. Care Teams All Around Patternmaker Relationship Specialty Start Date End Date Audrey Smith MD [address] [place] [phone] PCP - General 07/01/23
--- OUTSIDE RECORDS SUMMARY | 2025-05-12 11:43 | XMS_ITS | Clinical Summary ---
Author Organization [facility] Address [address] [place] [address] Care Team Providers Care Finance Associate Name Role Phone Unavailable Primary Care Provider [...]
== END 2025-05-12 12:05 | disposition home or self-care (01) ==
LOC: HO.HUSH 10:02
PROVIDERS: PCP Internal Medicine; Visit Provider Urology
DX: E29.1 Testicular hypofunction (principal); R68.82 Decreased libido
CPT/HCPCS: 11980; 99213

== ENCOUNTER → 2025-05-12 10:01 | Outpatient (BNVA) | payer MEDICAID, SELFPAY | PROVIDERS: PCP Internal Medicine; Visit Provider Urology | DX: E29.1 Testicular hypofunction (principal); R68.82 Decreased libido | CPT/HCPCS: 11980; 99212; J2003; J3490 ==

== ENCOUNTER 2025-05-17 09:00 | Outpatient (AMB) | payer MEDICAID, SELFPAY ==
[2025-05-17 09:09] VITALS: BP 94/62; PULSE 78; O2SAT 98; BMI 26.7
--- NOTE | 2025-05-17 09:09 | MHC.OFFVIS ---
Vital Signs 05/17/25 09:09 Height 5 ft 6 in Weight 165 lb 5.547 oz BMI 26.7 BP 94/62 Blood Pressure Location Lt brachial Position Sitting Pulse 78 Pulse Source Pulse Oximeter Pulse Oximetry (%) 98 Oxygen Delivery Method Room Air Intake Visit Reasons: Sleep apnea Intake Note: pt is here for follow up and states he is pretty good, using cpap on days and some days he is uncomforable and he cannot use it, and must take it off. sometimes he feels like he is short of breath, just a few times. Command Post Craftsman Required: Yes Command Post Craftsman Services: Command Post Craftsman Present Command Post Craftsman Name: Porfirio Serrato [phone] Pest Locator: Pest Locator offered & declined Allergies No Known Allergies (No Known Allergies*) Allergy (Verified 05/17/25 09:20) Medication List - Last Reconciled 05/17/25 by Desi Bach MD alirocumab (Praluent Pen) 75 mg subcut Q2W aspirin (Adult Low Dose Aspirin) 81 mg PO DAILY blood sugar diagnostic (FreeStyle Lite Strips) As directed blood-glucose meter (FreeStyle Walker Lite kit) As directed cholecalciferol (vitamin D3) 25 mcg PO DAILY clopidogrel 75 mg PO DAILY cyclobenzaprine 5 mg PO TID dicyclomine 20 mg PO QID PRN empagliflozin (Jardiance) 25 mg PO DAILY famotidine 40 mg PO BID fexofenadine (Allergy Relief (fexofenadine)) 180 mg PO DAILY gabapentin 400 mg PO TID glipizide ER 2.5 mg PO DAILY hydrocortisone 2.5% (Procto-Med HC) 1 ea AR BID PRN hydroxyzine HCl 1 tab PO BEDTIME PRN imipramine HCl 10 mg PO BEDTIME lancets (TRUEplus Lancets) As directed levothyroxine 25 mcg PO QAM lidocaine 5% (Lidoderm) 1 patch topical DAILY PRN srkwiy-vrsdqyhw-qfcabpg (pork) 5,000-17,000- 24,000 unit (Zenpep) 1 cap PO QID loperamide 2 mg PO BID PRN lorazepam 2 mg PO DAILY PRN metformin ER 1,000 mg PO QPM metoprolol succinate ER 50 mg PO DAILY needle (disp) 18 G (BD Regular Bevel [place]) As directed - draw up testosterone needle (disp) 22 G To inject Testosterone nitroglycerin 0.4 mg sublingual Q5M PRN oxybutynin chloride ER 5 mg PO DAILY 90 days promethazine 25 mg PO Q12H PRN risperidone 4 mg PO BEDTIME rosuvastatin 20 mg PO BEDTIME sertraline 100 mg PO DAILY sertraline 50 mg PO DAILY syringe (disposable) (Monoject TB Luer Judy) As directed - use 18 needle to draw up testosterone and 22 to inject tamsulosin 0.4 mg PO BEDTIME 90 days testosterone (Testopel) 75 mg implant .every 12 weeks Do you need a note to return to daycare/school/sports/work: No HPI HPI Sleep apnea: Details: This 54 years old Greek-speaking gentleman comes after 6 months for follow-up for his obstructive sleep apnea. Previously he has been very compliant but this time, he has not been using it every night and his average use it per night has been somewhat less. He say is that during the night he becomes uncomfortable and has to remove the mask. During the daytime he denies any sleepiness. He does have intermittent nasal congestion due to allergic rhinitis and then he uses Mila 180 mg once a day p.r.n.. He has multiple medical issues including diabetes mellitus, neuropathy, hypothyroidism, pancreatic insufficiency, arthritis, bipolar disorder and more. [facility] Medical History (Updated 05/17/25 @ 09:38 by Desi Bach MD) COVID-19 Hypogonadism Nocturnal hypoxemia SARTHAK (obstructive sleep apnea) Hypogonadism in male On beta catherine at home Hypothyroid IBS (irritable bowel syndrome) BPH (benign prostatic hyperplasia) Anxiety Allergic rhinitis COLON (nonalcoholic steatohepatitis) Elevated AFP Decreased libido Type 2 diabetes mellitus with unspecified complications Other and unspecified hyperlipidemia Essential hypertension Atherosclerotic cardiovascular disease Hypogonadism in male Surgical History S/P placement of nerve stimulator History of esophagogastroduodenoscopy (EGD) Hx of colonoscopy History of cardiac cath History of cardiac cath Family History Father Cardiac disease Mother Cardiac disease Social History Are you a primary care management associate to a significant other at home: No Do you presently have visiting nurse or other home services: No Alcohol intake: former Patient Tobacco Use Status: Former Tobacco user Tobacco use type: Cigarette Review of Systems Const All systems reviewed & are unremarkable except as noted in HPI and below Reports snoring (moderate ) Eyes Reports no additional complaints ENT Reports no additional complaints Card Denies chest pain (Intermittent angina), Denies irregular heart rhythm and Denies leg edema Resp Denies cough, Reports snoring (moderate ) and Denies wheezing GI Reports heartburn (GERD symptoms) Reports no additional complaints Musc Reports no additional complaints Skin/Breast Reports system reviewed and no additional complaints, except as documented Neuro Reports no additional complaints Psych Reports depression and Reports mood swings Endo Reports no additional complaints Kenneth/Lymph Reports no additional complaints Aller/Immun Reports no additional complaints and Denies wheezing Physical Exam Vital Signs: Last Vital Signs Pulse 78 05/17/25 09:09 BP 94/62 05/17/25 09:09 Pulse Ox 98 05/17/25 09:09 Oxygen Delivery Method Room Air 05/17/25 09:09 BMI result Body Mass Index 26.7 Const General: healthy appearing, comfortable, no acute distress, alert and awake Orientation/consciousness: patient oriented x3 HEENT Other: FACIAL FEATURES ARE, QUITE DISTINCT. HE HAS RELATIVELY FLAT NOSE AND FACE, WITH REGRESSION OF THE LOWER JAW , CAUSING RETROGNATHIA . Head: Yes normal to inspection General nose exam: No nasal polyps present and No nasal discharge present Face and sinus: Yes sinuses nontender Mouth: oropharynx abnormals (NARROW, WITH MALLAMPATI CLASS 3) Teeth and gingiva: other (RETROGANTHIA OF THE LOWER JAW) Throat: Yes posterior oropharynx normal Eyes General: appearance normal, both eyes and all related structures Neck Neck: Yes normal visual inspection, Yes no lymphadenopathy, Yes trachea midline and Yes no JVD Thyroid: Thyroid normal Chest Chest palpation & inspection: normal inspection of the chest, normal palpation of entire chest wall and no tenderness Resp Effort & Inspection: normal respiratory effort Auscultation: clear to auscultation bilaterally, no crackles and no wheezes Cardio Palpation: normal PMI Rate: regular rate Rhythm: regular rhythm Heart sounds: no gallops and no murmurs Peripheral pulses: Peripheral pulses 2+ throughout GI Palpation (GI): Soft to palpation, nontender, No hepatosplenomegaly present and no masses Auscultation: normal bowel sounds Back/Spine/Pelvis Thoracic/Lumbar Spine: thoracic and lumbar spine normal to inspection Skin General skin exam: no rashes or lesions noted Neuro General: patient oriented x3 and no focal motor deficits Cranial nerves: Yes CN's II-XII intact bilaterally Extrem General: Yes normal to inspection, Yes no clubbing, cyanosis or edema and Yes no calf tenderness Psych Appearance: grossly normal and well kempt Speech and movement: Normal speech and movement present Results Reviewed Results Reviewed: Compliance report for the last 30 nights is reviewed. He used 17/30 nights, 57%. Average use it per night 4 hours 34 minutes but average usage for total nights is 2 hours 35 minute. He does have only slight air leak. Residual AHI 2.9 Assessment & Plan Assessment & Plan (1) SARTHAK (obstructive sleep apnea): Comment: THIS GENTLEMAN IS OF NORMAL WEIGHT. 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 IT IS A PERMANENT MALFORMATION AND , ANY ATTEMPT AT FURTHER WEIGHT LOSS WOULD NOT HELP IN REDUCING HIS SLEEP APNEA. This time his compliance is suboptimal and he has used 17/20 nights with average usage 4 hours 34 minutes but on many nights is less than 4 hours. Code(s): G47.33 - Obstructive sleep apnea (adult) (pediatric) Category: Medical Plan: Had a good talk with him through the investment officer and I explained to him the minimum requirement of using at least 70% of the nights and at least 4 hours per night. He understands and will try his best to comply. (2) Allergic rhinitis: Comment: He has intermittent nasal congestion with postnasal discharge and this is due. To allergic rhinitis Code(s): J30.9 - Allergic rhinitis, unspecified Category: Medical Plan: May use Mila 180 mg once a day p.r.n. for nasal congestion. Coding Level of Care Code Est Pt Level 3 (64857) Diagnoses SARTHAK (obstructive sleep apnea) G47.33 Allergic rhinitis J30.9
--- OUTSIDE RECORDS SUMMARY | 2025-05-17 10:00 | XMS_ITS | Data Portability ---
Author Organization [facility], [id number] Address [address] [facility] [address] [place] [address] Care Team Providers Care Sleeve Turner Name Role Phone ADRI REDDY Referring Provider MAINE MORELAND Channel Lip Wetter FREDY MORENO Psychiatrist Assessment No assessment recorded. [...] proce dures No observ ation record ed. [email or web address] [address], [address], 08/25/2024 09:45:35 08/24/1908/24/2024 xr fluor o up to 1 hour See Note [facility] , a member of [employer] [facility] Name: OWEN RODRIGUES Date of : 1970 Reason for Exam: pain Exam Date: 2024 [id number] EST Report Status : Final Orderi ng [...] Edit Transc ribed Date: 2024 13:23 ET [email or web address] [address], [address], 08/25/2024 09:45:35 Result Notes None recorded. Problems Name Problem SNOMED Code Status Onset Date Resolution Date Notes Provider Name and Address Organization Details Recorded Time Diabetic peripheral neuropathy 085411226 Active 025 Rock Balderas MD [facility], [place] - [facility] 5 11:30:01 Problem Notes None recorded. Medical Equipment None Reported. Allergies Allergen ID Allergen Name Allergen Category Reaction Reaction Severity Criticality Documentation Date Start Date Code Code System Note Provider Name and Address Organization Details Recorded Time 44371 No Allergy Informati on Available Not available [...] Available No t Available BD Regular Bevel [place] 18 gauge x 1 USE WITH testosteron [...] Available Not Available No t Available FreeStyle [place] Lite kit USE TWICE DAILY active Not [...] Updated DateTime 5 165.1 cm 26.3 kg/m2 78976.5 9 g 63 /min 99 % 99 % 98 [degF] 110/72 mm[Hg] Kailyn [facility] 5 11:18:47 Social History None recorded. Functional Status None recorded. Mental Status None recorded. Family History Nothing Reported. Medical History Condition Response Diabetes Y Thyroid Problems Y Hypertension Y Past Encounters Encounter ID Performer Location Encounter Start Date Encounter Closed Date Diagnosis/Indication Diagnosis SNOMED-CT Code Diagnosis ICD10 Code Diagnosis IMO Codes Diagnosis Note [id number] Rock Balderas MD [id number] [place] [address] [address] 08/31/2024 09:37:10 08/31/2024 12:26:48 Diabetic peripheral neuropathy [id number] E11.40 -patient with long-stand ing history of [...] tomorrow -his current psychiatri st (Dr. Moreno-- [facility]--[phone] ) -will coordinate with Dr. Davenport for permanent SCS implant; will need to hold plavix prior to this procedure as well (Dr. Gary patel--[facility] ) -20 minutes was used for chart review, interviewi ng/examini ng, and counseling the patient during today's visit, and patient denies having any other further questions/ concerns [id number] Rock Balderas MD [id number] [place] [address] [facility] [address] [place] [address] [place] [address] 11/02/2024 11:11:23 11/02/2024 13:04:56 Diabetic peripheral neuropathy [id number] E11.40 -patient with long-stand ing history of bilateral foot pain, likely 2/2 diabetes and HTN induced neuropathy -patient did quite well with SCS trial, and underwent SCS implant on 10/04/24; currently reports that pain is significan tly improved -his current psychiatri st (Dr. Moreno-- [facility]-- [phone] ) -35 minutes was used for chart [...] Price Member ID Guarantor Name 10/30/2024 1 MEDICAID-[place]: [facility] Owen Hurd [id number] Owen Rio Hurd Notes Date Note Type [...] Of note, patient is on PLAVIX (sees [facility]).he reports that performing activities of daily [...] applied to insertion sites. Rock Balderas MD [facility], [place] - [facility] 11/02/2024 12:21:06 11/02/2024 text/html ROS as noted [...] Of note, patient is on PLAVIX (sees [facility]).he reports that performing activities of daily [...] SCS implant on 10/04/24. We had the packaging sales representative from [employer] also present at today's visit. With additional [...] sites are healing well. Rock Balderas MD [facility], [place] - [facility] 11/02/2024 12:40:27
--- OUTSIDE RECORDS SUMMARY | 2025-05-17 10:00 | XMS_ITS | Clinical Summary ---
Author Organization [address] [facility] Address [address] [place] [address] Phone Care Team Providers Care Photo Finisher Name Role Phone Audrey Smith MD Primary [...] not requiring any pain medication. Sarbjit from [employer] is here as well to go over [...] today. We used [employer] interpreter Leeanna #[id number], Morgan #[id number]. Chronic pain syndrome 09/21/2024 Diabetic neuropathy, painful ([facility] V24, [facility] V28) 09/14/2024 Assessment & Plan (09/14/2024 4:44 PM EST): I reviewed the steps involved in placement of the spinal cord stimulator leads and generator with the patient in conjunction with Sarbjit the videotape sales representative from [employer] and a iv rn. I demonstrated the position of each incision [...] hyperglycemia, without long-term current use of insulin ([facility] V24, [facility] V28) 12/04/2022 Stented coronary artery 11/20/2017 Essential hypertension 11/20/2017 Anxiety 11/20/2017 Acquired hypothyroidism 11/20/2017 Immunizations Immunization Administration Dates Next Due COVID-19 (Moderna/Spikevax) 12yo and older 07/10/2022 Hepatitis B (Igxnwhi-V-Nafbs , Recombivax HB-Adult) 19yo and older 12/07/2020,01/25/2019,12/25/2018 [...] IMPLANT 10/04/2024 Dr. Davenport and Dr. Parsons, [facility] Medical History Medical History Date Comments Diabetes mellitus ([facility] V24, [facility] V28) Hypertension Disease of thyroid gland [...] AM EST Office Visit Orthopedic Surgery - [place] [address] [address] Aaron Graves, DPFauzia [address] [place] [phone] Health Maintenance Due Date Last Done Comments [...] this topic Medical Devices Implanted Type Area Screen Printing Machine Operator Device Identifier Shelf Expiration Date Model / Serial / Lot Lead Linear Trial St - [id number] - [id number] Implanted:Qty : 1 on 08/24/2024 by Rock Parsons MD at [facility] Neurostim Right: Back [employer] 03/23/2026 [id number] / [id number] / [id number] Lead Linear Trial St - [id number] - [id number] Implanted:Qty : 1 on 08/24/2024 by Rock Parsons MD at [facility] Neurostim Left: Back [employer] 03/15/2026 [id number] / [id number] / [id number] Generator Implant Pulse Ww Alpha - [id number] - [id number] Implanted:Qty : 1 on 10/04/2024 by Cara Davenport MD at [facility] Neurostim Left: Back [employer] [id number] 06/22/2026 [id number] / [id number] / [id number] Powder Surgifoam Absorb Gel - Sna - [id number] Implanted:Qty : 1 on 10/04/2024 by Cara Davenport MD at [facility] [employer] Left: Back [employer] [id number] 06/28/2026 1978 / [id number] / [id number] Linearv Contact Lead Set Implanted:Qty : 1 on 10/04/2024 by Cara Davenport MD at [facility] Left: Back [employer] 08/13/2026 [id number] / [id number] / [id number] Linear Contact Lead Kit Implanted:Qty : 1 on 10/04/2024 by Cara Davenport MD at [facility] Left: Back [employer] 08/13/2026 [id number] / [id number] / [id number] Insurance MEDICAID - [place] Advance Directives [...] currently active code status orders. Care Teams Photo Finisher Relationship Specialty Start Date End Date Audrey Smith MD [address] [id number] PCP - General 07/01/23
--- OUTSIDE RECORDS SUMMARY | 2025-05-17 10:00 | XMS_ITS | Clinical Summary ---
Author Organization [facility] Address [address] [place] [address] Care Team Providers Care Time Clerk Name Role Phone Unavailable Primary Care Provider [...]
== END 2025-05-17 09:31 | disposition home or self-care (01) ==
LOC: HO.HPS 09:01
PROVIDERS: PCP Internal Medicine; Visit Provider Internal Medicine
DX: G47.33 Obstructive sleep apnea (adult) (pediatric) (principal); J30.9 Allergic rhinitis, unspecified
CPT/HCPCS: 99213

== ENCOUNTER → 2025-05-17 09:00 | Outpatient (BNVA) | payer MEDICAID, SELFPAY | PROVIDERS: PCP Internal Medicine; Visit Provider Internal Medicine | DX: G47.33 Obstructive sleep apnea (adult) (pediatric) (principal); Z99.89 Dependence on other enabling machines and devices; J30.9 Allergic rhinitis, unspecified | CPT/HCPCS: 99212 ==

== ENCOUNTER 2025-07-08 08:31 | Outpatient (REF) | payer MEDICAID, SELFPAY ==
--- OUTSIDE RECORDS SUMMARY | 2025-07-08 10:43 | XMS_ITS | Data Portability ---
Author Organization [place] [facility], Allergy Address [address] [address] Care Team Providers Care Cultural Anthropology Professor Name Role Phone SUNNY CLAIRE Primary Care Provider [phone] Assessment Encounter Date Assessment Date Assessment LastModified by Organization Details LastModified Time 05/26/2025 05/26/2025 The patient presents today with concerns of dysphagia. Head and neck examination otherwise normal. Flexible laryngoscopy today revealed LPR. Patient requires further workup including the following: - Modified barium swallow study to evaluate for functional abnormalities - X-ray barium swallow to evaluate for structural abnormalities - Recommended SURFACE GRINDER referral for swallow therapy - Discussion on LPR diet and avoidance of foods that stimulate stomach acid - Encouraged small bites and sips with every swallow, chin tuck method - Consider upping prevacid to BID acid-reducing medication 30 minutes before meals: - The patient can also trial alginate therapy with either Gaviscon or Reflux Gormet prn. - If sxs persist consider evaluation by a GI specialist. - RV: 2 months [email or web address] Not available 05/26/2025 10:17:32 Plan of Treatment Reminders Order Date Submit Date Provider Last Modified By Organization Details Last Modified Time Details Appointments Establi shed 15 2025 10:00A M Rock Capps, DO Not available Not available Not available Lab None recorde d. Referral None recorde d. Procedures None recorde d. Surgeries None recorde d. Imaging barium swallow study 2024 025 [facility], [address], [address], [place], [address], 06/23/2025 10:38:21 [place], modifie d barium swallow study 2024 025 [facility], [address], [address], [place], [address], 06/14/2025 12:43:16 Medication Orders Prevaci d 24Hr 15 mg capsule ,delaye d release 2024 025 [facility], [address] [place], [place], [id number], 06/01/2025 11:05:47 Patient TargetsNo targets recorded. Patient Instructions Encounter Date Encounter Id Patient Instructions Last Modified By Organization Details Last Modified Time 05/26/2025 [id number] - Increase Prevacid dosing to twice daily for six weeks. - Purchase and use the recommended [id number] product two to three times per day. - Complete the swallow studies as scheduled. - Follow up in two months. [email or web address] Not available 05/26/2025 10:16:55 Please note: Parts of this encounter note have been generated by AI based on audio conversation. Patient consent was required prior to utilizing this technology. Content review was required prior to finalizing the note. [email or web address] Not available 05/26/2025 10:16:54 Reason for Referral None Reported. Problems Name Problem SNOMED Code Status Onset Date Resolution Date Notes Provider Name and Address Organization Details Recorded Time Gastroesophage al reflux disease without esophagitis 798417597 Active 2024 Rock Capps DO [address] [place] [address], [place], [address], [facility] - [facility] 17:37:48 Metabolic dysfunction-as sociated steatohepatiti s 017270142 Active 2024 Rock Capps DO [address] [address], [place], [address], [facility] - [facility] 17:37:52 Allergic rhinitis 54387337 Active 2024 Rock Capps DO [address] [address], [place], [address], [place] - [facility] [place] 5 17:38:01 Feeling of lump in throat 714085197 Active 2024 Rock Capps, [address] [address], [place], [address], [facility] - [facility] [place] 5 10:11:44 Dysphagia 59947970 Active 2024 Rock Capps, [address] [address], [place], [address], [facility] [place] 5 10:14:41 Problem Notes None recorded. Procedures Surgical History Date Name Laterality Status Provider Name and Address Organization Details Recorded Time 05/26/2025 FOL_Reflux _DHL completed Rock Capps, [address] [address], [place], [address], [facility] 05/25/2025 17:38:14 Imaging Results None recorded. Procedure Notes None recorded. Medical Equipment None Reported. Allergies No known drug allergies Medications Name Sig Start Date Stop Date Status Note LastModified by Organization Details LastModified Time loperamide 2 mg capsule TAKE 1 CAPSULE BY MOUTH TWICE DAILY NEEDED FOR DIARRHEA active Not Available Not Available No t Available metoprolol succinate ER 50 mg tablet,exte nded release 24 hr TAKE 1 TABLET BY [...] THE EVENING active Not Available Not Available No t Available gabapentin 400 mg capsule TAKE 1 CAPSULE BY MOUTH AT NOON, EVENING, AND BEDTIME active Not Available Not Available No t Available sertraline 100 mg tablet TAKE 2 TABLETS BY MOUTH ONCE DAILY AT NOON active Not Available Not Available No t Available hydroxyzine HCl 50 mg tablet TAKE 1 TABLET BY MOUTH AT BEDTIME NEEDED FOR SLEEP / ANXIETY active Not Available Not Available No t Available clopidogrel 75 mg tablet TAKE 1 TABLET BY MOUTH EVERYDAY AT NOON active Not Available Not Available No t Available fexofenadin e 180 mg tablet TAKE 1 TABLET BY MOUTH EVERY MORNING active Not Available Not Available No t Available aspirin 81 mg tablet,roopa yed release TAKE 1 TABLET BY MOUTH EVERYDAY AT NOON active Not Available Not Available No t Available levothyroxi ne 25 mcg tablet TAKE 1 TABLET BY MOUTH EVERY MORNING BEFORE BREAKFAST active Not Available Not Available No t Available hydrocortis one 2.5 % topical cream with perineal applicator INSERT 1 APPLICATI ON RECTALLY TWICE DAILY NEEDED FOR PAIN active Not Available Not Available No t Available tamsulosin 0.4 mg capsule TAKE 1 CAPSULE BY MOUTH AT BEDTIME active Not Available Not Available No t Available dicyclomine 20 mg tablet TAKE 1 TABLET BY MOUTH FOUR TIMES DAILY NEEDED FOR CRAMPS active Not Available Not Available No t Available lorazepam 2 mg tablet TAKE 1 TABLET BY MOUTH AT BEDTIME active Not Available Not Available No t Available glipizide ER 2.5 mg tablet, extended release 24 hr TAKE 1 TABLET BY MOUTH EVERYDAY AT NOON active Not Available Not Available No t Available metformin 1,000 mg tablet TAKE 1 TABLET BY MOUTH TWICE DAILY AT NOON AND IN THE EVENING 05/26 completed Not Available Not Available Not Available lidocaine 5 % topical patch APPLY 1 PATCH TOPICALLY TO SKIN, LEAVE ON FOR 12 HOURS AND OFF FOR 12 HOURS DIRECTED 05/26 completed Not Available Not Available Not Available promethazin e 25 mg tablet TAKE 1 TABLET BY MOUTH EVERY TWELVE HOURS NEEDED FOR NAUSEA AND VOMITING active Not Available Not Available No t Available nitroglycer in 0.[address] 1 TABLET UNDER THE TONGUE NEEDED FOR CHEST PAIN - MAY REPEAT IN 5 MINUTES TWICE. IF NO RELIEF CALL 911 OR GO TO EMERGENCY ROOM. active Not Available Not Available No t Available oxybutynin chloride ER 5 mg tablet,exte nded release 24 hr TAKE 1 TABLET BY MOUTH EVERYDAY AT NOON active Not Available Not Available No t Available bisacodyl 5 mg tablet,roopa yed release TAKE 2 TABLETS BY MOUTH AT BEDTIME FOR 2 DAYS 05/26 completed Not Available Not Available Not Available testosteron e cypionate 200 mg/mL intramuscul ar oil INJECT 0.7 ML (140 MG) INTRAMUSC ULARLY EVERY 2 WEEKS active Not Available Not Available No t Available imipramine 10 mg tablet TAKE 1 TABLET BY MOUTH AT BEDTIME active Not Available Not Available No t Available metformin ER 500 mg tablet,exte nded release 24 hr TAKE 2 TABLETS BY MOUTH EVERY DAY IN THE EVENING DO NOT BREAK, CRUSH, DISSOLVE OR CHEW active Not Available Not Available No t Available sertraline 50 mg tablet TAKE 1 TABLET BY MOUTH EVERYDAY AT NOON active Not Available Not Available No t Available oxycodone 5 mg tablet TAKE 1 TO 2 TABLETS BY MOUTH EVERY 8 HOURS NEEDED FOR SEVERE PAIN 05/26 completed Not Available Not Available Not Available Vitamin D3 25 mcg (1,000 unit) capsule TAKE 1 CAPSULE BY MOUTH EVERYDAY AT NOON active Not Available Not Available No t Available cyclobenzap rine 5 mg tablet TAKE 1 TABLET BY MOUTH THREE TIMES DAILY active Not Available Not Available No t Available rosuvastati n 20 mg tablet TAKE 1 TABLET BY MOUTH AT BEDTIME active Not Available Not Available No t Available peg 3350-electr olytes 236 gram-22.74 gram-6.74 gram-5.86 gram solution MIX BOTTLE DIRECTED AND TAKE 240 ML BY MOUTH EVERY 10 MINUTES DO NOT EXCEED 2000 ML 05/26 completed Not Available Not Available Not Available FreeStyle Lite Strips USE DIRECTED TO TEST BLOOD SUGAR TWICE DAILY active Not Available Not Available No t Available FreeStyle [place] Lite kit TEST BLOOD SUGAR ONCE DAILY active Not Available Not Available No t Available diclofenac 1 % topical gel APPLY 4 GRAMS TOPICALLY TO AFFECTED AREA(S) TWICE DAILY active Not Available Not Available No t Available Prevacid 24Hr 15 mg capsule,del ayed release Take 1 capsule twice a day by oral route for 60 days. 2024 active Not Available Not Available Not Avai lable Easy Touch Alcohol Prep Pads TEST BLOOD SUGAR ONCE DAILY active Not Available Not Available No t Available TRUEplus Lancets 33 gauge TEST BLOOD SUGAR ONCE DAILY active Not Available Not Available No t Available Invokana 100 mg tablet TAKE 1 TABLET BY MOUTH EVERYDAY AT NOON BEFORE MEALS 05/26 completed Not Available Not Available Not Available Jardiance 10 mg tablet TAKE 1 TABLET BY MOUTH EVERYDAY AT NOON 05/26 completed Not Available Not Available Not Available Jardiance 25 mg tablet TAKE 1 TABLET BY MOUTH EVERYDAY AT NOON active Not Available Not Available No t Available Praluent Pen 75 mg/mL subcutaneou s pen injector INJECT 75 MG (1 ML) SUBCUTANE OUSLY EVERY 2 WEEKS active Not Available Not Available No t Available naloxone 4 mg/actuatio n nasal spray FOR SUSPECTED OPIOID OVERDOSE. SPRAY 0.1mL IN ONE NOSTRIL. REPEAT IN ALTERNATE NOSTRIL 2-3 MINUTES IF NEEDED. SEEK MEDICAL ATTENTION IMMEDIATE LY EVEN IF PATIENT RESPONDS. active Not Available Not Available No t Available Zenpep 5,000 unit-17,000 unit-24,000 unit capsule,del ayed release TAKE 1 CAPSULE BY MOUTH FOUR TIMES DAILY active Not Available Not Available No t Available Mounjaro 2.5 mg/0.5 mL subcutaneou s pen injector INJECT ONE PEN (=2.5MG) SUBCUTANE OUSLY ONCE A WEEK DIRECTED active Not Available Not Available No t Available Vitals Date Recorded Body height Body mass index (BMI) Body weight Provider Name and Address Organization Details Last Updated DateTime 05/26/2025 167.64 cm 26.5 kg/m2 17366.15 g Tamika Hahn [place] - [facility] 05/26/2025 09:32:04 Social History None recorded. Functional Status None recorded. Mental Status None recorded. Family History Nothing Reported. Medical History No medical history recorded. Past Encounters Encounter ID Performer Location Encounter Start Date Encounter Closed Date Diagnosis/Indication Diagnosis SNOMED-CT Code Diagnosis ICD10 Code Diagnosis IMO Codes Diagnosis Note [id number] Rock Capps DO [facility] [address] [address] 05/26/2025 09:20:31 05/26/2025 10:18:40 Gastroesophageal reflux disease without esophagitis 685393111 K21.9 715969 Metabolic dysfunction-associate d steatohepatitis 553698766 K75.81 862099 Allergic rhinitis 768861 04 J30.9 4729840 Feeling of lump in throat 541076988 R09.A2 479253 Dysphagia 27341259 R13.1 0 Health Concerns Section Related Observation LastModified by Organization Detai ls LastModified Time None Recorded Concern Status LastModified by Organization Details LastModified Time None Recorded Advance Directives Directive None Recorded Payers Insurance Date Sequence Insurance Name Policy Number Policy Price Covered Member ID Price Member ID Guarantor Name 05/26/2025 1 [place]: [facility] Owen Hurd [id number] Owen Hurd Notes Date Note Type Note Provider Name and Address Organization Details Recorded Time 05/26/2025 text/html Record review: Patient has a history of consistent sore throat, globus sensation, and some dysphagia. Also with a history of [place] and irritable bowl syndrome he also endorses a history of chronic allergic rhinitis and is tried Mila previously. Owen Hurd is a 54-year-old male who presents for throat discomfort. He reports experiencing symptoms for approximately ten months, including a sensation of food being stuck in the throat and a feeling of fullness or a ball in the throat. He has a history of silent acid reflux and is currently taking famotidine for management. He also experiences occasional hoarseness in his voice. Rock Capps, 100 [facility], [place], [address], [facility] - [facility] 06/06/2025 12:20:17
--- OUTSIDE RECORDS SUMMARY | 2025-07-08 10:43 | XMS_ITS | Continuity of Care Document ---
Author Organization [facility] - [facility], [facility] Address [address] [place] [address] Care Team Providers Care Functional Director Name Role Phone SUNNY CLAIRE Primary Care Provider Assessment Encounter Date Assessment Date Assessment LastModified by Organization Details LastModified Time 05/26/2025 05/26/2025 The patient presents today with concerns of dysphagia. Head and neck examination otherwise normal. Flexible laryngoscopy today revealed LPR. Patient requires further workup including the following: - Modified barium swallow study to evaluate for functional abnormalities - X-ray barium swallow to evaluate for structural abnormalities - Recommended PRINT PROJECT MANAGER referral for swallow therapy - Discussion on [...] d. Imaging barium swallow study 2024 025 [facility], [address] [facility], [address], [place], [address], 06/23/2025 10:38:21 [place], modifie d barium swallow study 2024 025 [facility], [address], [address], [place], [address], 06/14/2025 12:43:16 Medication Orders Prevaci d 24Hr 15 mg capsule ,delaye d release 2024 025 [facility], [address] [place] [address], [id number], 06/01/2025 11:05:47 Patient TargetsNo targets recorded. Patient Instructions Encounter Date Encounter Id Patient Instructions Last Modified By Organization Details Last Modified Time 05/26/2025 [id number] - Increase Prevacid dosing to twice daily for six weeks. - Purchase and use the recommended [id number] product two to three times per day. [...] Time Gastroesophage al reflux disease without esophagitis 155009286 Active 2024 Rock Capps DO [address] [place] [address], [place], [address], [facility] - [facility] 17:37:48 Metabolic dysfunction-as sociated steatohepatiti s 253395718 Active 2024 Rock Capps DO [address] [place] [address], [place], [address], [facility] - [facility] 17:37:52 Allergic rhinitis 84485609 Active 2024 Rock Capps DO [address] [address], [place], [address], [facility] - [facility] [place] 5 17:38:01 Feeling of lump in throat 299888524 Active 2024 Rock Génesis, [address] [address], [place], [address], [facility] - [facility] [place] 5 10:11:44 Dysphagia 33931452 Active 2024 Rock Génesis [address] [address], [place], [address], [facility] - [facility] [place] 5 10:14:41 Problem Notes None recorded. Procedures Surgical History Date Name Laterality Status Provider Name and Address Organization Details Recorded Time 05/26/2025 FOL_Reflux _DHL completed Rock Génesis, [address] [address], [place], [address], [facility] - [facility] [place] 05/25/2025 17:38:14 Imaging Results None recorded. Procedure [...] Available Not Available No t Available FreeStyle [place] Lite kit TEST BLOOD SUGAR ONCE DAILY [...] Updated DateTime 05/26/2025 167.64 cm 26.5 kg/m2 58908.15 g Tamika Hahn [place] - [facility] 05/26/2025 09:32:04 Social History None recorded. Functional Status None recorded. Mental Status None recorded. Family History Nothing Reported. Medical History No medical history recorded. Past Encounters Encounter ID Performer Location Encounter Start Date Encounter Closed Date Diagnosis/Indication Diagnosis SNOMED-CT Code Diagnosis ICD10 Code Diagnosis IMO Codes Diagnosis Note [id number] Rock Capps DO [facility] [address] [address] 05/26/2025 09:20:31 05/26/2025 10:18:40 Gastroesophageal reflux disease without esophagitis 502736119 K21.9 043287 Metabolic dysfunction-associate d steatohepatitis 602053155 K75.81 946443 Allergic rhinitis 382094 04 J30.9 0599271 Feeling of lump in throat 021280647 R09.A2 362880 Dysphagia 27687983 R13.1 0 Health Concerns Section Related Observation LastModified by Organization Detai ls LastModified Time None Recorded Concern Status LastModified by Organization Details LastModified Time None Recorded Payers Encounter Date Sequence Insurance Name Policy Number Policy Price Covered Member ID Price Member ID Guarantor Name 05/26/2025 1 [place]ICAID-[place]: [facility] Owen Hurd [id number] Owen Hurd Notes Date Note Type Note [...] hoarseness in his voice. Rock Capps, 100 [facility], [place], [address], [facility] - [facility] 06/06/2025 12:20:17
--- OUTSIDE RECORDS SUMMARY | 2025-07-08 10:43 | XMS_ITS | Data Portability ---
Author Organization [facility], [id number] Address [address] [facility] [address] [place] [address] Care Team Providers Care Propagation Worker Name Role Phone ADRI REDDY Referring Provider [phone] MAINE MORELAND Adult Basic Education Manager FREDY MORENO Psychiatrist [phone] Assessment No assessment recorded. Plan of Treatment [...] proce dures No observ ation record ed. [email or web address] [address], [address], 08/25/2024 09:45:35 08/24/1908/24/2024 xr fluor o up to 1 hour See Note [facility] , a member of [employer] [facility] Name: OEWN RODRIGUES Date of : 1970 Reason for Exam: pain Exam Date: 2024 [id number] EST Report Status : Final Orderi ng [...] Edit Transc ribed Date: 2024 13:[address], [address], 08/25/2024 09:45:35 Result Notes None recorded. Problems Name Problem SNOMED Code Status Onset Date Resolution Date Notes Provider Name and Address Organization Details Recorded Time Diabetic peripheral neuropathy 956017570 Active 025 Rock Balderas MD [facility], [facility] 5 11:30:01 Problem Notes None recorded. Medical Equipment None Reported. Allergies Allergen ID Allergen Name Allergen Category Reaction Reaction Severity Criticality Documentation Date Start Date Code Code System Note Provider Name and Address Organization Details Recorded Time 19153 No Allergy Informati on Available Not available Not available Not available Not available 08/31/2024 Comme nt: shyanne e: Rere st e: Raymon marroquin; ; Not Available [employer] [...] Available No t Available BD Regular Bevel Citra 18 gauge x 1 USE WITH testosteron [...] Available Not Available No t Available FreeStyle [place] Lite kit USE TWICE DAILY active Not [...] (BMI) Body weight Heart rate Oxygen saturation Body temperature Systolic And Diastolic Provider Name and Address Organization Details Last Updated DateTime 5 165.1 cm 26.3 kg/m2 52366.5 9 g 63 /min 99 % 98 [degF] 110/72 mm[Hg] Kailyn [facility] 5 11:18:47 Social History None recorded. Functional Status None recorded. Mental Status None recorded. Family History Nothing Reported. Medical History Condition Response Diabetes Y Thyroid Problems Y Hypertension Y Past Encounters Encounter ID Performer Location Encounter Start Date Encounter Closed Date Diagnosis/Indication Diagnosis SNOMED-CT Code Diagnosis ICD10 Code Diagnosis IMO Codes Diagnosis Note [id number] Rock Balderas MD [id number] [facility] [address] [place] [address] 08/31/2024 09:37:10 08/31/2024 12:26:48 Diabetic peripheral neuropathy 892214478 E11.40 -patient with long-stand ing history of [...] tomorrow -his current psychiatri st (Dr. Moreno-- [facility]-- [phone] ) -will coordinate with Dr. Davenport for permanent SCS implant; will need to hold plavix prior to this procedure as well (Dr. 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 Moreno-- [facility]-- [phone] ) -35 minutes was used for chart [...] Price Member ID Guarantor Name 10/30/2024 1 [place] [facility] Owen Hurd [id number] Owen Hightoweriago Notes Date Note Type Note [...] Of note, patient is on PLAVIX (sees [facility]).he reports that performing activities of daily [...] applied to insertion sites. Rock Balderas MD null, [place] - [facility] 11/02/2024 12:21:06 11/02/2024 text/html ROS as [...] Of note, patient is on PLAVIX (sees [facility]).he reports that performing activities of daily [...] SCS implant on 10/04/24. We had the inside sales account representative from [employer] also present at today's visit. With additional [...] Rock Balderas MD [facility], [place] [facility], [facility] 11/02/2024 12:40:27
[2025-07-08 11:09] LABS: Alanine Aminotransferase 49 U/L (0-40); Albumin Level 4.4 g/dL (3.5-5.0); Alkaline Phosphatase 110 U/L (39-117); Anion Gap 10 (12-20); Aspartate Amino Transferase 29 U/L (5-37); Blood Urea Nitrogen 11 mg/dL (9-16); Calcium 9.6 mg/dL (8.4-10.2); Carbon Dioxide 28 mmol/L (22-29); Chloride 103 mmol/L (96-108); Estimated Glomerular Filt Rate > 60; Potassium 4.4 mmol/L (3.3-5.1); Sodium 137 mmol/L (135-145); Total Protein 6.8 g/dL (6.5-8.0)
== END 2025-07-08 08:32 | disposition home or self-care (01) ==
LOC: HO.LAB 08:31
PROVIDERS: PCP Internal Medicine; Visit Provider Nurse Practitioner
DX: K21.9 Gastro-esophageal reflux disease without esophagitis (principal); K22.4 Dyskinesia of esophagus; K58.0 Irritable bowel syndrome with diarrhea; K75.81 Nonalcoholic steatohepatitis (NASH); R77.2 Abnormality of alphafetoprotein; J30.9 Allergic rhinitis, unspecified; Z79.899 Other long term (current) drug therapy
CPT/HCPCS: 36415; 80053; 82105; 99212

== ENCOUNTER 2025-07-08 08:31 | Outpatient (AMB) | payer MEDICAID, SELFPAY ==
--- OUTSIDE RECORDS SUMMARY | 2025-07-08 08:40 | XMS_ITS | Encounter Summary ---
Author Organization [employer] Address [address] [facility] [address] [place] [address] Care Team Providers Care Faceter Name Role Phone Audrey Smith MD Primary Care Provide r Rao Mcdowell RN Unavailable [phone] Piedad Tolliver Unavailable Reason for Visit * Reason Comments Med Refill Encounter Details Date Type Department Care Team ([facility] st Contact Info) Description 06/15/2025 Refill [facility] [address] [place] [address] Audrey Smith MD [address] [place] [address] Diabetic polyneuropathy associated with type 2 diabetes mellitus (HCC) Social History Tobacco Use Types Packs/Day Years [...] Care Team (Late st Contact Info) Description 09/13/2025 9:15 AM EST Office Visit [facility] [address] [place] [address] Audrey Smith MD [address] [place] [address] 12/23/2025 10:00 AM EDT Medication Management [facility] [address] [place] [address] Janice Candelaria, PharmD [address] [place] [address] documented as of this encounter Goals Goal Patient Goal Type Associated Problems Recent Progress Patient-Stated? Author Help patients manage their type 2 diabetes Care Plan Help patients manage their type 2 diabetes No Trinh Durán Weekly blood pressure task Care Plan Weekly blood pressure task No Trinh Durán Help patients manage their type 2 diabetes Care Plan Help patients manage their type 2 diabetes No Trinh Durán Patient has chronic kidney disease Care Plan Patient has chronic kidney disease No Trinh Durán Help patients manage their type 2 diabetes Care Plan Help patients manage their type 2 diabetes No Trinh Durán Patient has diabetic neuropathy Care Plan Patient has diabetic neuropathy No Trinh Durán Weekly blood pressure task Care Plan Weekly blood pressure task No Trinh Durán Weekly blood pressure task Care Plan Weekly blood pressure task No Trinh Durán Patient has chronic kidney disease Care Plan Patient has chronic kidney disease No Trinh Durán Patient has chronic kidney disease Care Plan Patient has chronic kidney disease No Trinh Durán Patient has diabetic neuropathy Care Plan Patient has diabetic neuropathy No Trinh Durán Patient has diabetic neuropathy Care Plan Patient has diabetic neuropathy No Trinh Durán Weekly blood pressure task Care Plan Weekly blood pressure task No Aleisha Hurst MA Weekly blood pressure task Care Plan Weekly blood pressure task No Aleisha Hurst MA Weekly blood pressure task Care Plan Weekly blood pressure task No Aleisha Hurst MA Patient has chronic kidney disease Care Plan Patient has chronic kidney disease No Aleisha Hurst MA Patient has chronic kidney disease Care Plan Patient has chronic kidney disease No Aleisha Hurst MA Patient has chronic kidney disease Care Plan Patient has chronic kidney disease No Aleisha Hurst MA Patient has diabetic neuropathy Care Plan Patient has diabetic neuropathy No Aleisha Hurst [place] Patient has diabetic neuropathy Care Plan Patient has diabetic neuropathy No Aleisha Hurst [place] Patient has diabetic neuropathy Care Plan Patient has diabetic neuropathy No Aleisha Hurst MA Weekly blood pressure task Care Plan Weekly blood pressure task No Rao Mcdowell, VANE Weekly blood pressure task Care Plan Weekly blood pressure task Rao Shin RN Weekly blood pressure task Care Plan Weekly blood pressure task No Rao Mcdowell RN Patient has chronic kidney disease Care Plan Patient has chronic kidney disease Rao Shin RN Patient has chronic kidney disease Care Plan Patient has chronic kidney disease Rao Shin RN Patient has chronic kidney disease Care Plan Patient has chronic kidney disease Rao Shin RN Patient has diabetic neuropathy Care Plan Patient has diabetic neuropathy Rao Shin RN Patient has diabetic neuropathy Care Plan Patient has diabetic neuropathy No Rao Mcdowell RN Patient has diabetic neuropathy Care Plan Patient has diabetic neuropathy No Rao Mcdowell RN documented as of this encounter Visit Diagnoses Diagnosis Diabetic polyneuropathy associated with type 2 diabetes mellitus (HCC) documented in this encounter Additional Health Concerns Active Problems Noted Date Diagnosed Date Help patients manage their type 2 diabetes 06/02 Weekly blood pressure task 06/02/2025 Help patients manage their type 2 diabetes 06/02 Patient has chronic kidney disease 06/02/2025 Help patients manage their type 2 diabetes 06/02 Patient has diabetic neuropathy 06/02/2025 Weekly blood pressure task 06/02/2025 Weekly blood pressure task 06/02/2025 Patient has chronic kidney disease 06/02/2025 Patient has chronic kidney disease 06/02/2025 Patient has diabetic neuropathy 06/02/2025 Patient has diabetic neuropathy 06/02/2025 Weekly blood pressure task 06/09/2025 Weekly blood pressure task 06/09/2025 Weekly blood pressure task 06/09/2025 Patient has chronic kidney disease 06/09/2025 Patient has chronic kidney disease 06/09/2025 Patient has chronic kidney disease 06/09/2025 Patient has diabetic neuropathy 06/09/2025 Patient has diabetic neuropathy 06/09/2025 Patient has diabetic neuropathy 06/09/2025 Weekly blood pressure task 06/14/2025 Weekly blood pressure task 06/14/2025 Weekly blood pressure task 06/14/2025 Patient has chronic kidney disease 06/14/2025 Patient has chronic kidney disease 06/14/2025 Patient has chronic kidney disease 06/14/2025 Patient has diabetic neuropathy 06/14/2025 Patient has diabetic neuropathy 06/14/2025 Patient has diabetic neuropathy 06/14/2025 Assessment Noted Time PHQ-9 Depression Total Score: 21 03/17/ 025 9:23 AM EDT documented as of this encounter Care Teams Faceter Relationship Specialty Start Date End Date Audrey Smith MD [address] [place] [address] PCP - General Family Medicine 11/20/17 Rao Mcdowell, VANE [address] [place] [phone] Registered Nurse Family Medicine 11/29/24 Piedad Tolliver 11/29/24 documented as of this encounter
--- OUTSIDE RECORDS SUMMARY | 2025-07-08 08:40 | XMS_ITS | Encounter Summary ---
Author Organization [employer] Address [address] [facility] 7t [place] [address] Care Team Providers Care Behavioral Health Case Manager Name Role Phone Audrey Smith MD Primary Care Provide r Rao Mcdowell RN Unavailable [phone] Piedad Tolliver Unavailable Reason for Visit * Reason Comments Med Refill Encounter Details Date Type Department Care Team ([facility] st Contact Info) Description 11/01/2024 Refill [facility] MEDICINE [address] [place] [address] Audrey Smith MD [address] [place] [address] Diabetic polyneuropathy associated with type 2 diabetes mellitus ([facility]/HCC) Social History Tobacco Use Types Packs/Day Years [...] t he electric, gas, oil or water [employer] threatened to shut off services in your [...] Description 09/13/2025 9:15 AM EST Office Visit [facility] MEDICINE [address] [place] [address] Audrey Smith MD [address] [place] [address] 12/23/2025 10:00 AM EDT Medication Management [facility] [address] [place] [address] Janice Candelaria, PharmD [address] [place] [address] documented as of this encounter Visit Diagnoses Diagnosis Diabetic polyneuropathy associated with type 2 diabetes mellitus (HCC) documented in this encounter Additional Health Concerns Assessment Noted Time PHQ-9 Depression Total Score: 0 05/21/20 9:38 AM EDT documented as of this encounter Care Teams Behavioral Health Case Manager Relationship Specialty Start Date End Date Audrey Smith MD [address] [place] [address] PCP - General Family Medicine 11/20/17 Rao Mcdowell, RN [address] [place] [address] Registered Nurse Family Medicine 11/29/24 Piedad Tolliver 11/29/24 documented as of this encounter
--- OUTSIDE RECORDS SUMMARY | 2025-07-08 08:40 | XMS_ITS | Encounter Summary ---
Author Organization [employer] Address [address] [facility] 7t [place] [address] Care Team Providers Care Visual Basic .Net Developer Name Role Phone Audrey Smith MD Primary Care Provide r Rao Mcdowell RN Unavailable [phone] Piedad Tolliver Unavailable Reason for Visit * Reason Comments Med Refill Encounter Details Date Type Department Care Team ([facility] st Contact Info) Description 06/15/2025 Refill [facility] MEDICINE [address] [place] [address] Audrey Smith MD [address] [place] [address] Diabetic polyneuropathy associated with type 2 diabetes [...] Description 09/13/2025 9:15 AM EST Office Visit [facility] MED[facility]INE [address] [place] [address] Audrey Smith MD [address] [place] [address] 12/23/2025 10:00 AM EDT Medication Management [facility] MEDICINE [address] [place] [address] Janice Candelaria, PharmD [address] [place] [address] documented as of this encounter Goals Goal [...] documented as of this encounter Care Teams Visual Basic .Net Developer Relationship Specialty Start Date End Date Audrey Smith MD [address] [place] [address] PCP - General Family Medicine 11/20/17 Rao Mcdowell, VANE [address] [place] [address] Registered Nurse Family Medicine 11/29/24 Piedad Tloliver 11/29/24 documented as of this encounter
--- OUTSIDE RECORDS SUMMARY | 2025-07-08 08:40 | XMS_ITS | Clinical Summary ---
Author Organization [facility] Prior to 12/18/24 Address [address] [place] [address] Care Team Providers Care Writer Name Role Phone Unavailable Primary Care Provider [...] (Easy Touch Hypodermic Needle) 22G X 1-1/2 [facility] USE FOR INJECT testosterone 0 11/21/2023 Active [...]
--- OUTSIDE RECORDS SUMMARY | 2025-07-08 08:40 | XMS_ITS | Encounter Summary ---
Author Organization [employer] Address [address] [facility] 7[address] [place] [address] Care Team Providers Care Cap And Stud Machine Operator Name Role Phone Audrey Smith MD Primary Care Provide r Rao Mcdowell RN Unavailable [phone] Piedad Tolliver Unavailable Encounter Details Date Type Department Care Team (Late st Contact Info) Description 10/10/2022 Orders Only [facility] MEDICINE [address] [place] [id number] Uzma Tyler LPN Social History Tobacco Use [...] Description 09/13/2025 9:15 AM EST Office Visit [facility] MED[facility]INE [address] [place] [address] Audrey Smith MD [address] [place] [address] 12/23/2025 10:00 AM EDT Medication Management [facility] [address] [place] [address] Janice Candelaria, MelinaD [address] [place] [address] documented as of this encounter Visit Diagnoses Not on filedocumented in this encounter Care Teams Cap And Stud Machine Operator Relationship Specialty Start Date End Date Audrey Smith MD [address] [place] [address] PCP - General Family Medicine 11/20/17 Rao Mcdowell, VANE [address] [place] [phone] Registered Nurse Family Medicine 11/29/24 Piedad Tolliver 11/29/24 documented as of this encounter
--- OUTSIDE RECORDS SUMMARY | 2025-07-08 08:40 | XMS_ITS ---
Author Organization [employer] Address [address] [facility] [address] [place] [address] Care Team Providers Care Boiler/Chiller Technician Name Role Phone Audrey Smith MD Primary Care Provide r Rao Mcdowell RN Unavailable [phone] Piedad Tolliver Unavailable CM Complex Status:Enrolled (Active) Start date:11/29/2024 Enrollment date:02/23/2025 Enrollment reason:ADT Feed Overview [facility] ED 11/26/24 Case Team Name Relationship Phone Rao Mcdowell RN(Responsible Staff) Registered [facility] [phone] Continued Care and Services Coordination
--- OUTSIDE RECORDS SUMMARY | 2025-07-08 08:40 | XMS_ITS | Encounter Summary ---
Author Organization [employer] Address [address] [facility] 7[address] [place] [address] Care Team Providers Care Ice Cream Scooper Name Role Phone Audrey Smith MD Primary Care Provide r Rao Mcdowell RN Unavailable [phone] Piedad Tolliver Unavailable Reason for Visit * Reason Comments Care Management C3CM- F/U call Encounter Details Date Type Department Care Team ([facility] st Contact Info) Description 07/06/2025 Patient Outreach [facility] [address] [place] [address] Audrey Smith MD [address] [place] [address] Care Management (C3CM- F/U call) Social History Tobacco Use Types Packs/Day Years [...] as of this encounter Progress Notes * Rao Mcdowell RN - 07/06/2025 10:15 AM EST BUTCH Mcdowell RN placed outbound call to patient. Patient's name, and address confirmed. Patient states is doing well with no recent illnesses or emergency room visits. Since the last follow up call, patient has been seen by urology, pulmonology, orthopedics, ENT, and his PCP. Patient reports that all visits went well and being compliant with plan of care. During his PCP visit on 06/09/25,his mounjaro dose was increased to 5 mg. Patient reports that his blood sugars are controlled, withrecent blood glucose reading of 99, 107, 120. Per PCP note, goal is to discontinue glipizide and metformin. Next follow up scheduled for 09/13/24 at 9:15 AM. Patient reports that his blood pressure has generally been well controlled. Patient noted that last night he felt it might have been elevated,but he did not check it. Patient states that his blood pressure is rarely high. Patient reports adherence to all prescribed medications and denies needing any refills. Patient reports experiencing constipation since his mounjaro dose was increased. CM advised patient to stay hydrated, increase dieta ry fiber, and engage in regular physical activity. Patient reports that his depression varies, withsome days feeling well regulated and other days not as much. Patient reports that he has been feeling depressed over the past few days. Patient reports having appointment with his psychiatrist and therapist tomorrow, which he states are helpful. Patient reports that his chronic leg pain is better controlled. Patient also reports experiencing stomach pain, which he manages with medication that he states is effective. Patient mentioned that he has a GI appointment scheduled for this Friday. Patient reports that he is using his CPAP as prescribed. No further questions or concerns. CM reinforced direct contact information or CHW for any additional questions or concerns. Education provided on [facility] located in [facility]. Patient provided with after-hours line for [facility], , which offer night time triage service and option to transfer to events and promotions assistant provider if needed. Patient verbalizes understanding, and able to repeat back to selling underwriter. A follow up call will be placed within 10 days, patientagrees with plan. documented in this encounter Miscellaneous Notes * Care Plan - Rao Mcdowell RN - 07/06/2025 10:15 AM EST Active Behavioral Health Support Behavioral Health (Progressing) Start: 02/25/25 Expected End: 05/26/25 Patient will improve his mental well-being by attending her therapy and psychiatry appointment and taking his prescribed medications Goal Note Patient reports that his depression varies, with some days feeling well regulated and other days not as much. Patient reports that he has been feeling depressed over the past few days. Patient reports having appointment with his psychiatrist and therapist tomorrow, which he states are helpful. Cardiac Improve Cardiac Health (Progressing) Start: 02/25/25 Expected End: 05/26/25 Cardiovascular Heart Disease (CHD) B/P at/or < Goal (Progressing) Start: 02/25/25 Expected End: 05/26/25 Care Plan Care Plan Understanding (Progressing) Start: 02/25/25 Expected End: 05/26/25 DME/Equipment Obtain DME/Equipment (Progressing) Start: 02/25/25 Expected End: 05/26/25 Diabetes Adherence to 150min/week Physical Activity Recommendation (Progressing) Start: 02/25/25 Expected End: 05/26/25 Goal Note During his PCP visit on 06/09/25, his mounjaro dose was increased to 5 mg. Patient reports that hisblood sugars are controlled, with recent blood glucose reading of 99, 107, 120. Per PCP note, goal is to discontinue glipizide and metformin. Adherence to Carbohydrate and Sugar Restrictions (Progressing) Start: 02/25/25 Expected End: 05/26/25 Goal Note During his PCP visit on 06/09/25, his mounjaro dose was increased to 5 mg. Patient reports that hisblood sugars are controlled, with recent blood glucose reading of 99, 107, 120. Per PCP note, goal is to discontinue glipizide and metformin. Adherence to Prescribed Blood Sugar Self-Monitoring Plan (Progressing) Start: 02/25/25 Expected End: 05/26/25 Goal Note During his PCP visit on 06/09/25, his mounjaro dose was increased to 5 mg. Patient reports that hisblood sugars are controlled, with recent blood glucose reading of 99, 107, 120. Per PCP note, goal is to discontinue glipizide and metformin. Diabetes Management (Progressing) Start: 02/25/25 Expected End: 05/26/25 Patient will monitor his blood glucose daily using a glucose meter, record readings, and take all prescribed diabetes medications on time, achieving consistent control over the next 30 days, to improve his diabetes management. Goal Note During his PCP visit on 06/09/25, his mounjaro dose was increased to 5 mg. Patient reports that hisblood sugars are controlled, with recent blood glucose reading of 99, 107, 120. Per PCP note, goal is to discontinue glipizide and metformin. Diabetes Self-Management (Progressing) Start: 02/25/25 Expected End: 05/26/25 Goal Note During his PCP visit on 06/09/25, his mounjaro dose was increased to 5 mg. Patient reports that hisblood sugars are controlled, with recent blood glucose reading of 99, 107, 120. Per PCP note, goal is to discontinue glipizide and metformin. Improved Blood Sugar Control (Progressing) Start: 02/25/25 Expected End: 05/26/25 Goal Note During his PCP visit on 06/09/25, his mounjaro dose was increased to 5 mg. Patient reports that hisblood sugars are controlled, with recent blood glucose reading of 99, 107, 120. Per PCP note, goal is to discontinue glipizide and metformin. Hypertension Adherence to DASH Diet (Progressing) Start: 02/25/25 Expected End: 05/26/25 Goal Note Patient reports that his blood pressure has generally been well controlled. Patient noted that lastnight he felt it might have been elevated, but he did not check it. Patient states that his blood pressure is rarely high B/P at/or < Goal (Progressing) Start: 02/25/25 Expected End: 05/26/25 Goal Note Patient reports that his blood pressure has generally been well controlled. Patient noted that lastnight he felt it might have been elevated, but he did not check it. Patient states that his blood pressure is rarely high Manage Hypertension (Progressing) Start: 02/25/25 Expected End: 05/26/25 Patient will manage his high blood pressure by monitoring his blood pressure once daily and keepinga log for the next 30 days to help track the effectiveness of his treatment. Patient will share results with her health care provider at the next follow up visit. Patient will follow the DASH diet byincorporating more fresh fruits and vegetables and reducing his sodium intake for the next 4 weeks by keeping a food journal to track his progress. Goal Note Patient reports that his blood pressure has generally been well controlled. Patient noted that lastnight he felt it might have been elevated, but he did not check it. Patient states that his blood pressure is rarely high Regularly Monitors Blood Pressure (Progressing) Start: 02/25/25 Expected End: 05/26/25 Goal Note Patient reports that his blood pressure has generally been well controlled. Patient noted that lastnight he felt it might have been elevated, but he did not check it. Patient states that his blood pressure is rarely high Medication Concerns Improve Medication Access (Progressing) Start: 02/25/25 Expected End: 05/26/25 Goal Note Patient reports adherence to all prescribed medications and denies needing any refills. Patient reports experiencing constipation since his mounjaro dose was increased. CM advised patient to stay hydrated, increase dietary fiber, and engage in regular physical activity. Improve Medication Adherence (Progressing) Start: 02/25/25 Expected End: 05/26/25 Goal Note Patient reports adherence to all prescribed medications and denies needing any refills. Patient reports experiencing constipation since his mounjaro dose was increased. CM advised patient to stay hydrated, increase dietary fiber, and engage in regular physical activity. Improve Medication Management (Progressing) Start: 02/25/25 Expected End: 05/26/25 Goal Note Patient reports adherence to all prescribed medications and denies needing any refills. Patient reports experiencing constipation since his mounjaro dose was increased. CM advised patient to stay hydrated, increase dietary fiber, and engage in regular physical activity. Musculoskeletal Musculoskeletal Stability (Progressing) Start: 02/25/25 Expected End: 05/26/25 Goal Note Patient reports that his chronic leg pain is better controlled. Patient also reports experiencing stomach pain, which he manages with medication that he states is effective. Patient mentioned that hehas a GI appointment scheduled for this Friday Pain Management Manage Pain (Progressing) Start: 02/25/25 Expected End: 05/26/25 Goal Note Patient reports that his chronic leg pain is better controlled. Patient also reports experiencing stomach pain, which he manages with medication that he states is effective. Plan of Care Patient Centered Plan of Care (Progressing) Start: 02/25/25 Expected End: 05/26/25 Self-Management Effective Self-Management Strategy (Progressing) Start: 02/25/25 Expected End: 05/26/25 Weight Management Optimal Weight Management (Progressing) Start: 02/25/25 Expected End: 05/26/25 documented in this encounter Plan of Treatment Upcoming Encounters Date Type Department Care Team (Late st Contact Info) Description 09/13/2025 9:15 AM EST Office Visit [address] [address] Audrey Smith MD [address] [place] [address] 12/23/2025 10:00 AM EDT Medication Management [address] [address] Janice Candelaria PharmD [address] [place] [address] documented as of this encounter Goals Goal [...] blood pressure task No Rao Mcdowell RN Weekly blood pressure task Care Plan Weekly blood pressure task No Rao Mcdowell RN Weekly blood pressure task Care Plan Weekly blood pressure task No Rao Mcdowell RN Patient has chronic kidney disease Care Plan Patient has chronic kidney disease No Rao Mcdowell RN Patient has chronic kidney disease Care Plan Patient has chronic kidney disease No Rao Mcdowell RN Patient has chronic kidney disease Care Plan Patient has chronic kidney disease No Rao Mcdowell RN Patient has diabetic neuropathy Care Plan Patient has diabetic neuropathy No Rao Mcdowell RN Patient has diabetic neuropathy Care Plan Patient has diabetic neuropathy No Rao Mcdowell RN Patient has diabetic neuropathy Care Plan Patient has diabetic neuropathy No Rao Mcdowell RN Weekly blood pressure task Care Plan Weekly blood pressure task No Amanda Ovalle, PharmD Weekly blood pressure task Care Plan Weekly blood pressure task No Amanda Ovalle, PharmD Weekly blood pressure task Care Plan Weekly blood pressure task No Amanda Ovalle, PharmD Patient has chronic kidney disease Care Plan Patient has chronic kidney disease No OvalleCici chavezfer, PharmD Patient has chronic kidney disease Care Plan Patient has chronic kidney disease No Ovalle, Amanda, PharmD Patient has chronic kidney disease Care Plan Patient has chronic kidney disease No Ovalle, Amanda, PharmD Patient has diabetic neuropathy Care Plan Patient has diabetic neuropathy No OvalleCici chavezfer, PharmD Patient has diabetic neuropathy Care Plan Patient has diabetic neuropathy No OvalleCici chavezfer, PharmD Patient has diabetic neuropathy Care Plan Patient has diabetic neuropathy No Cici Ovallefer, PharmD Weekly blood pressure task Care Plan Weekly blood pressure task No Rao Mcdowell RN Weekly blood pressure task Care Plan [...] filedocumented in this encounter Additional Health Concerns Active [...] neuropathy 06/14/2025 Patient has diabetic neuropathy 06/14/2025 Weekly blood pressure task 06/23/2025 Weekly blood pressure task 06/23/2025 Weekly blood pressure task 06/23/2025 Patient has chronic kidney disease 06/23/2025 Patient has chronic kidney disease 06/23/2025 Patient has chronic kidney disease 06/23/2025 Patient has diabetic neuropathy 06/23/2025 Patient has diabetic neuropathy 06/23/2025 Patient has diabetic neuropathy 06/23/2025 Weekly blood pressure task 07/06/2025 Weekly blood pressure task 07/06/2025 Weekly blood pressure task 07/06/2025 Patient has chronic kidney disease 07/06/2025 Patient has chronic kidney disease 07/06/2025 Patient has chronic kidney disease 07/06/2025 Patient has diabetic neuropathy 07/06/2025 Patient has diabetic neuropathy 07/06/2025 Patient has diabetic neuropathy 07/06/2025 Assessment Noted Time PHQ-9 Depression Total Score: 21 03/17/ 025 9:23 AM EDT documented as of this encounter Care Teams Ice Cream Scooper Relationship Specialty Start Date End Date Audrey Smith MD [address] [place] [phone] PCP - General Family Medicine 11/20/17 Rao Mcdowell, RN [address] [place] [phone] Registered Nurse Family Medicine 11/29/24 Piedad Tolliver 11/29/24 documented as of this encounter
--- OUTSIDE RECORDS SUMMARY | 2025-07-08 08:40 | XMS_ITS | Clinical Summary ---
Author Organization 175 [facility] Address 175 [place] [address] Phone Care Team Providers Care Talent Acquisition Relationship Manager Name Role Phone Audrey Smith MD Primary Care Provide r Allergies No known active allergies Medications diclofenac (VOLTAREN) 1 % topical gel Apply 4 g topically 2 times daily. 08/18/19 24 Active aspirin 81 mg EC tablet Take 1 tablet (81 mg total) by mouth 1 (one) time each day. Active cyclobenzaprine (FLEXERIL) 5 mg tablet Take by [...] same meal each day. Active testosterone cypionate (DEPO-TESTOTERON E) 200 mg/mL injection Inject 0.7 mL (140 mg total) into the shoulder, thigh, or buttocks every 14 (fourteen) days. EVERY 3 MTHS BY DRS OFFICE Active glucose 4 gram chewable tablet Chew 4 tablets (16 g total) if needed for low blood sugar. Active cholecalciferol (VITAMIN D-3) 25 mcg (1,000 unit) tablet Take 1 tablet (1,000 Units total) by mouth 1 (one) time each day. Active empagliflozin (Jardiance) 10 mg tablet Take 1 tablet (10 mg total) by mouth 1 (one) time each day. Active lipase/protease/ amylase (PANCRELIPASE ORAL) Take by mouth 4 (four) [...] DAILY NEEDED FOR PAIN 09/08/19 25 Active Easy Touch Alcohol Prep Pads pads, medicated 1 (one) time each day. TEST BLOOD SUGAR 03/24/20 25 Active FreeStyle [place] Lite monitoring kit 1 (one) time each day. TEST BLOOD SUGAR 03/24/20 25 Active clopidogreL (PLAVIX) 75 mg tablet TAKE 1 TABLET BY MOUTH EVERYDAY AT NOON 02/22/20 25 Active TRUEplus Lancets 33 gauge misc 1 (one) time each day. TEST BLOOD SUGAR 03/24/20 25 Active naloxone (NARCAN) 4 mg/0.1 mL nasal spray FOR SUSPECTED OPIOID OVERDOSE. SPRAY 0.1mL IN ONE NOSTRIL. REPEAT IN ALTERNATE NOSTRIL 2-3 MINUTES IF NEEDED. SEEK MEDICAL ATTENTION IMMEDIATELY EVEN IF PATIENT RESPONDS. 10/05/19 25 Active polyethylene glycol (GoLYTELY) 236-22.74-6.74 -5.86 gram solution MIX BOTTLE DIRECTED AND TAKE 240 ML BY MOUTH EVERY 10 MINUTES DO NOT EXCEED 2000 ML Active testosterone (TESTOPEL) 75 mg pellet subcutaneous implant pellet Inject under the skin. Active Mounjaro 2.5 mg/0.5 mL injection INJECT ONE PEN (=2.5MG) SUBCUTANEOUSLY ONCE A WEEK DIRECTED 05/10/20 Active Active Problems Problem Noted Date Diagnosed Date S/P insertion of spinal cord stimulator 10/16/19 Assessment & Plan (10/15/2024 2:48 PM EDT): Patient is 11 days s/p spinal cord stimulator placement, he does feel it is helping his burning neuropathic pain in his LEs, it has been turned on and seems to be working well. He has not had any wound drainage, fevers, sweats chills. He is not requiring any pain medication. Sarbjit from [employer] is here as well to go over [...] pain med refills today. We used [employer] inserter Leeanna #[id number], Morgan #[id number]. Chronic pain syndrome 09/21/2024 Diabetic neuropathy, painful 09/14/2024 Assessment & Plan (09/14/2024 4:44 PM EST): I reviewed the steps involved in placement of the spinal cord stimulator leads and generator with the patient in conjunction with Sarbjit the insurance healthcare representative from [employer] and a barkeep. I demonstrated the position of each incision [...] without long-term current use of insulin 12/04/2022 Stented coronary artery 11/20/2017 Essential hypertension 11/20/2017 Anxiety 11/20/2017 Acquired hypothyroidism 11/20/2017 Encounters Date Type Department Care Team Description 05/25/2025 10:00 AM EST Office Visit Orthopedic Surgery - [place] 250 [address] [facility] [address] [place] [phone] Aaron Graves, DPM Diabetic mononeuropathy simplex (CMS/HCC V24, CMS/HCC V28) (Primary Dx); Primary osteoarthritis of both feet from Last 3 Months Immunizations Immunization Administration Dates Next Due COVID-19 (Moderna/Spikevax) 12yo and older 07/10/2022 Hepatitis B (Ghyruay-V-Ckbfk , Recombivax HB-Adult) 19yo and older 12/07/2020,01/25/2019,12/25/2018 Influenza Quadrivalent, 0.5m l, preservative free (Fluarix; FluLaval; Fluzone) ages 6mo and older (Afluria) 3yo and older 05/16/2023,04/18/2022,04/13/2021,2019 Influenza Quadrivalent, with preservative (Fluzone; Afluria) 6mo and older 05/24/2019,04/07/2018 Influenza trivalent, 0.5mL, preservative free (Fluarix; FluLaval; Fluzone) ages 6mo and older (Afluria) 3 years and older 05/21/2024 Eptica (ages 12 & older) ADDY S-CoV-2 COVID-19, [...] IMPLANT 10/04/2024 Dr. Davenport and Dr. Parsons, [facility] Medical History Medical History Date Comments Diabetes mellitus ([facility] V24, [facility] V28) Hypertension Disease of thyroid gland Hypercholesteremia [...] Orientation Straight 08/24/2024 7: 05 AM EST Last Filed Vital Signs Vital Sign Reading [...] Care Team (Late st Contact Info) Description 05/25/2026 9:30 AM EST Office Visit [facility] [place] [address] [phone] Aaron Graves DPM [address] [phone] Health Maintenance Due Date Last Done Comments Colorectal Cancer Screening: Colonoscopy 1970 Diabetes: Annual Foot Exam 11/07/1979 Diabetes: Annual Retina Eye Exam 11/07/1979 RSV Immunization Adult Patients (1 - Risk 50-74 years 1-dose series) 11/07/2019 HIV Screening 08/15/2023 Hepatitis C Screening 08/15/2023 Social Influencers of Health Screening 08/15/2023 Diabetes: Annual Urine Albumin-Creatinine Ratio (uACR) 04/29/2024 Depression Screening 07/21/2024 COVID-19 Vaccine ( season) 2025 05/21/2024, 08/01/2023, 07/10/2022, Additional history exists Influenza Vaccine (#1) 2025 , 05/16/2023, 04/18/2022, Additional history exists Diabetes: Blood Sugar Control Test (HGBA1C) 09/17/2025 03/17/2025, 11/19/2024, 09/17/2024, Additional history exists Diabetes: Annual GFR (Glomerular Filtration Rate) 11/19/2025 11/19/2024, 06/02/2024 Hypertension/CHF/CAD Annual BMP Blood Test 11/19/2025 11/19/2024, 06/02/2024 DTaP,Tdap,and Td Vaccines (2 - Td or Tdap) 03/16/2028 03/16/2018 Cholesterol Screening (Lipid Panel) 08/25/2029 08/25/2024, 06/02/2024 Hepatitis B Vaccines Completed 12/07/2020, 01/25/2019, 12/25/2018 Zoster Vaccines Completed 08/09/2021, 05/30/2021 Pneumococcal Vaccine: 50+ Years Completed 10/22/2023 Hepatitis A Vaccines Aged Out 05/10/2025, 11/04/19 25 No longer eligible based on patient's age [...] this topic Medical Devices Implanted Type Area Direct Marketing Representative Device Identifier Shelf Expiration Date Model / Serial / Lot Lead Linear Trial St - [id number] - [id number] Implanted:Qty : 1 on 08/24/2024 by Rock Parsons MD at [facility] Neurostim Right: Back [employer] 03/23/2026 [id number] / [id number] / [id number] Lead Linear Trial St - [id number] - [id number] Implanted:Qty : 1 on 08/24/2024 by Rock Parsons MD at [facility] Neurostim Left: Back [employer] 03/15/2026 [id number] / [id number] / [id number] Generator Implant Pulse Ww Whitney - [id number] - [id number] Implanted:Qty : 1 on 10/04/2024 by Cara Davenport MD at [facility] Neurostim Left: Back [employer] [id number] 06/22/2026 [id number] / [id number] / [id number] Powder Surgifoam Absorb Gel - Sna - [id number] Implanted:Qty : 1 on 10/04/2024 by Cara Davenport MD at [facility] [employer]obiologics Left: Back [facility] [employer] [id number] 06/28/20261977 / [id number] / [id number] Linearv Contact Lead Set Implanted:Qty : 1 on 10/04/2024 by Cara Davenport MD at [facility] Left: Back [employer] 08/13/2026 [id number] / [id number] / [id number] Linear Contact Lead Kit Implanted:Qty : 1 on 10/04/2024 by Cara Davenport MD at [facility] Left: Back [employer] 08/13/2026 [id number] / [id number] / [id number] Insurance MEDICAID - [place] Advance Directives [...] currently active code status orders. Care Teams Talent Acquisition Relationship Manager Relationship Specialty Start Date End Date Audrey Smith MD [address] [place] [phone] PCP - General 07/01/23
--- OUTSIDE RECORDS SUMMARY | 2025-07-08 08:40 | XMS_ITS | Encounter Summary ---
Author Organization [employer] Address 75 [facility] 7t [place] [address] Care Team Providers Care Optometrist Assistant Name Role Phone Audrey Smith MD Primary Care Provide r Rao Mcdowell RN Unavailable [phone] Piedad Tolliver Unavailable Encounter Details Date Type Department Care Team (Late st Contact Info) Description 03/27/2023 Orders Only [facility] [address] [place] [phone] ProviderNatasha MD Social History Tobacco Use Types [...] Description 09/13/2025 9:15 AM EST Office Visit [facility] [address] [place] [phone] Audrey Smith MD [address] [place] [address] 12/23/2025 10:00 AM EDT Medication Management [facility] [address] [place] [address] Janice Candelaria, PharmD [address] [place] [phone] documented as of this encounter Procedures Procedure [...] AM EDT Narrative 03/30/2023 11:21 AM EDT [address] [address] XRay Report Signed Patient: Owen Montano MR#: [id number] : 1970 Acct:[id number] Age/Sex: 52 / M ADM Date: 03/30/23 Loc: HO.ED Attending Dr: Ordering Physician: Ada Mcintosh NP Date of Service: 03/30/23 Procedure(s): XR hip RT w PEL1V Accession Number(s): [id number] cc: Audrey Smith MD; Ada Mcintosh NP [...] in OV> 03/30/23 1117 DD/ 1046 TD/TT: Custom Home Installer: Procedure Note Donotuseinterpreter, Image - 03/30/[address] [place] [address] XRay Report Signed Patient: Owen MontanoMR#: [id number] : 1970Acct:[id number] Age/Sex: 52 / MADM Date: 03/30/23 Loc: HO.ED Attending Dr: Ordering Physician: Ada Mcintosh NP Date of Service: 03/30/23 Procedure(s): XR hip RT w PEL1V Accession Number(s): [id number] cc: Audrey Smith MD; Ada Mcintosh NP [...] in OV> 03/30/23 1117 DD/ 1046 TD/TT: Custom Home Installer: [facility] External Provider IMG XR PROCEDURES Final Result * Hm Colonoscopy (05/22/2021) Historical Provider HEALTH MAINTENANCE Final Result documented in this encounter Visit Diagnoses Not on filedocumented in this encounter Care Teams Optometrist Assistant Relationship Specialty Start Date End Date Audrey Smith MD [address] [place] [phone] PCP - General Family Medicine 11/20/17 Rao Mcdowell, RN [address] [place] [address] Registered Nurse Family Medicine 11/29/24 Piedad Tolliver 11/29/24 documented as of this encounter
--- OUTSIDE RECORDS SUMMARY | 2025-07-08 08:40 | XMS_ITS | Encounter Summary ---
Author Organization [employer] Address 75 [facility] 7t [place] [address] Care Team Providers Care Acoustic Warfare Analyst Name Role Phone Audrey Smith MD Primary Care Provide r Rao Mcdowell RN Unavailable [phone] Piedad Tolliver Unavailable Reason for Visit * Reason Comments Med Refill Encounter Details Date Type Department Care Team ([facility] st Contact Info) Description 12/17/2024 Refill [facility] [address] [place] [address] [facility] 230 [place], [place] [phone] Diabetic polyneuropathy associated with type 2 diabetes [...] Description 09/13/2025 9:15 AM EST Office Visit [facility] [address] [place] [phone] Audrey Smith MD [address] [place] [address] 12/23/2025 10:00 AM EDT Medication Management [facility] [address] [place] [address] Janice Candelaria, PharmD [address] [place] [address] documented as of this encounter Visit Diagnoses Diagnosis Diabetic polyneuropathy associated with type 2 diabetes mellitus (HCC) documented in this encounter Additional Health Concerns Assessment Noted Time PHQ-9 Depression Total Score: 0 05/21/20 9:38 AM EDT documented as of this encounter Care Teams Acoustic Warfare Analyst Relationship Specialty Start Date End Date Audrey Smith MD 230 [place] [address] PCP - General Family Medicine 11/20/17 Rao Mcdowell, RN [address] [place] [address] Registered Nurse Family Medicine 11/29/24 Piedad Tolliver 11/29/24 documented as of this encounter
--- OUTSIDE RECORDS SUMMARY | 2025-07-08 08:40 | XMS_ITS | Encounter Summary ---
Author Organization [employer] Address 75 [facility] 7t [place] [address] Care Team Providers Care Cosmetics And Toiletries Salesperson Name Role Phone Audrey Smith MD Primary Care Provide r Rao Mcdowell RN Unavailable [phone] Piedad Tolliver Unavailable Reason for Visit * Reason Comments Med Refill Encounter Details Date Type Department Care Team (Late Contact Info) Description 03/09/2023 Refill [facility] [address] [place], [place] [phone] Alice Huber MD [address] [place] [address] [phone] Type 2 diabetes mellitus without complication, unspecified whether intermediate teacher insulin use ([facility]) Social History Tobacco Use Types Packs/Day Years [...] Department Care Team (Late Contact Info) Description 09/13/2025 9:15 AM EST Office Visit [facility] [address] [place] [address] [phone] Audrey Smith MD [address] [place] [address] [phone] 12/23/2025 10:00 AM EDT Medication Management [facility] [address] [place] [address] Janice Candelaria, MelinaD [address] [place] [address] documented as of this encounter Visit Diagnoses Diagnosis Type 2 diabetes mellitus without complication, unspecified whether intermediate teacher insulin use documented in this encounter Care Teams Cosmetics And Toiletries Salesperson Relationship Specialty Start Date End Date Audrey Smith MD [address] [place] [address] PCP - General Family Medicine 11/20/17 Rao Mcdowell, RN [address] [place] [address] Registered Nurse Family Medicine 11/29/24 Piedad Tolliver 11/29/24 documented as of this encounter
--- OUTSIDE RECORDS SUMMARY | 2025-07-08 08:40 | XMS_ITS | Encounter Summary ---
Author Organization [employer] Address 75 [facility] 7t [place] [address] Care Team Providers Care Reference Test Clerk Name Role Phone Audrey Smith MD Primary Care Provide r Rao Mcdowell RN Unavailable [phone] Piedad Tolliver Unavailable Reason for Visit * Reason Comments Med Refill Encounter Details Date Type Department Care Team ([facility] st Contact Info) Description 10/22/2024 Refill [facility] 230 [place] [address] Audrey Smith MD 230 [place] [address] Diabetic polyneuropathy associated with type 2 diabetes mellitus ([facility]) Social History Tobacco Use Types Packs/Day Years [...] t he electric, gas, oil or water [employer] threatened to shut off services in your [...] Description 09/13/2025 9:15 AM EST Office Visit [facility] [address] [place] [phone] Audrey Smith MD [address] [place] [address] 12/23/2025 10:00 AM EDT Medication Management [facility] [address] [place] [phone] Janice Candelaria, PharmD [address] [place] [address] documented as of this encounter Visit Diagnoses Diagnosis Diabetic polyneuropathy associated with type 2 diabetes mellitus (HCC) documented in this encounter Additional Health Concerns Assessment Noted Time PHQ-9 Depression Total Score: 0 05/21/20 9:38 AM EDT documented as of this encounter Care Teams Reference Test Clerk Relationship Specialty Start Date End Date Audrey Smith MD [address] [place] [address] PCP - General Family Medicine 11/20/17 Rao Mcdowell, RN [address] [place] [address] Registered Nurse Family Medicine 11/29/24 Piedad Tolliver 11/29/24 documented as of this encounter
--- OUTSIDE RECORDS SUMMARY | 2025-07-08 08:40 | XMS_ITS ---
Author Organization [employer] Address 75 [facility] 7t [place] [address] Care Team Providers Care Job Printer Apprentice Name Role Phone Audrey Smith MD Primary Care Provide r Rao Mcdowell RN Unavailable [phone] Piedad Tolliver Unavailable [facility] Status:Enrolled (Active) Start date:11/29/2024 Enrollment date:12/06/2024 Enrollment reason:ADT Feed Overview ADT-[facility] ED 11/26/24 Case Team Name Relationship Phone Piedad Tolliver(Responsible Staff) Continued Care and Services Coordination
--- OUTSIDE RECORDS SUMMARY | 2025-07-08 08:40 | XMS_ITS | Encounter Summary ---
Author Organization [employer] Address 75 [facility] 7t [place] [address] Care Team Providers Care Director Day Care Center Name Role Phone Audrey Smith MD Primary Care Provide r Rao Mcdowell RN Unavailable [phone] Piedad Tolliver Unavailable Encounter Details Date Type Department Care Team (Late st Contact Info) Description 08/30/2022 Orders Only [facility] [address] [place] [phone] Vane Cervantes MD [address] [place] [address] [phone] Muscle spasm (Primary Dx) Social History Tobacco [...] Description 09/13/2025 9:15 AM EST Office Visit [facility] [address] [place] [address] [phone] Audrey Smith MD [address] [place], [place] [phone] 12/23/2025 10:00 AM EDT Medication Management [facility] [address] [place] [address] [phone] Janice Candelaria, PharmD [address] [place] [address] documented as of this encounter Visit Diagnoses Diagnosis Muscle spasm- Primary Spasm of muscle documented in this encounter Care Teams Director Day Care Center Relationship Specialty Start Date End Date Audrey Smith MD [address] [place], [place] [phone] PCP - General Family Medicine 11/20/17 Rao Mcdowell, RN [address] [place] [address] Registered Nurse Family Medicine 11/29/24 Piedad Tolliver 11/29/24 documented as of this encounter
--- OUTSIDE RECORDS SUMMARY | 2025-07-08 08:40 | XMS_ITS | Encounter Summary ---
Author Organization [employer] Address 75 [facility] 7t [place] [address] Care Team Providers Care Energy Management Specialist Name Role Phone Audrey Smith MD Primary Care Provide r Rao Mcdowell RN Unavailable [phone] Piedad Tolliver Unavailable Reason for Visit * Reason Comments Med Refill Encounter Details Date Type Department Care Team ([facility] Contact Info) Description 01/10/2023 Refill [facility] [address] [place] [phone] Sameer Campbell MD [address] [place] [address] Social History Tobacco Use Types Packs/Day Years [...] Upcoming Encounters Date Type Department Care Team ([facility] Contact Info) Description 09/13/2025 9:15 AM EST Office Visit [facility] [address] [place] [address] [phone] Audrey Smith MD 230 [place], [place] [phone] 12/23/2025 10:00 AM EDT Medication Management [facility] 230 [place], [place] [phone] Janice Candelaria, PharmD 230 [place], [place] [phone] documented as of this encounter Visit Diagnoses Not on filedocumented in this encounter Care Teams Energy Management Specialist Relationship Specialty Start Date End Date Audrey Smith MD [address] [place] [address] [phone] PCP - General Family Medicine 11/20/17 Rao Mcdowell, RN [address] [place] [phone] Registered Nurse Family Medicine 11/29/24 Piedad Tolliver 11/29/24 documented as of this encounter
--- OUTSIDE RECORDS SUMMARY | 2025-07-08 08:41 | XMS_ITS | Clinical Summary ---
Author Organization [employer] Address [address] [place] [address] Care Team Providers Care Wire Temperer Name Role Phone Audrey Smith MD Primary Care Provide r Rao Mcdowell RN Unavailable [phone] Piedad Tolliver Unavailable Allergies No known active allergies Medications Praluent 75 MG/ML injection 023 Active dicyclomine (Bentyl) 20 MG tablet 023 Active hydrOXYzine HCl (Atarax) 50 MG tablet 023 Active hydrocortisone (Anusol-HC) 2.5 % rectal cream 023 Active loperamide (Imodium) 2 MG capsule 023 Active oxybutynin XL (Ditropan-XL) 5 MG 24 hr tablet 023 Active Zenpep 5000-89511 units capsule delayed-release particles capsule Take 1 [...] hyperglycemia, without long-term current use of insulin ([facility]) 1 kit 2 times daily. 1 kit Active sertraline (Zoloft) 100 MG tablet Active imipramine (Tofranil) 10 MG tablet Take 10 mg by mouth at bedtime. Active LORazepam (Ativan) 2 MG tablet Take 2 mg by mouth at bedtime. 024 Active fexofenadine (Mila) 180 MG tablet Active famotidine (Pepcid) 40 MG tablet Take 40 mg by mouth in the morning and 40 mg in the evening. Active naloxone (Narcan) 4 mg/0.1 mL nasal spray Administer 4 mg into affected nostril(s) if needed for opioid reversal. Active testosterone (Testopel) implant Inject under the skin every 3 (three) months. Administered at office ([facility]) Active empagliflozin (Jardiance) 25 MGIndications:Ty pe 2 diabetes mellitus with hyperglycemia, without long-term current use of insulin ([facility]) Take 1 tablet (25 mg) by mouth Once per day. 30 tablet 11 06/28/20 25 4:05 PM EST 025 2025 Active metFORMIN XR (Glucophage-XR) 500 MG 24 hr tablet Take 2 tablets by mouth with evening meal. Active glipiZIDE XL (Glucotrol XL) 2.5 MG 24 hr tabletIndication s:Type 2 diabetes mellitus without complication, unspecified whether buttermaker continuous churn insulin use TAKE 1 TABLET BY MOUTH EVERYDAY AT NOON 90 tablet 1 Active glucose blood (FREESTYLE LITE) test stripIndications :Type 2 diabetes mellitus with hyperglycemia, without long-term current use of insulin ([facility]) TEST BLOOD SUGAR TWICE DAILY 50 strip Active TRUEplus Lancets 33G miscIndications: Type 2 diabetes mellitus with other specified complication, without long-term current use of insulin ([facility]) TEST BLOOD SUGAR TWICE DAILY 100 each Active Blood Glucose Monitoring Suppl (FreeStyle [place] Lite) w/Device kitIndications:T ype 2 diabetes mellitus with hyperglycemia, without long-term current use of insulin ([facility]) Use to test blood sugar 1 times daily 1 kit 025 Active FREESTYLE LITE test stripIndications :Type 2 diabetes mellitus with hyperglycemia, without long-term current use of insulin (HCC) Use to test blood sugar 2 times daily 100 each 6 06/28/20 25 4:05 PM EST 025 2025 Active Lancets miscIndications: Type 2 diabetes mellitus with hyperglycemia, without long-term current use of insulin ([facility]) Use to test blood sugar 2 times daily 100 each 6 06/28/20 25 4:05 PM EST 025 Active Alcohol Swabs 70 % padsIndications: Type 2 diabetes mellitus with hyperglycemia, without long-term current use of insulin ([facility]) Use to test blood sugar 2 times daily 100 each 6 06/28/20 25 4:05 PM EST 025 Active FREESTYLE LITE test stripIndications :Type 2 diabetes mellitus with hyperglycemia, without long-term current use of insulin ([facility]) Use to test blood sugar 2 times daily 100 each 12 025 2025 Active aspirin (Aspirin Low Dose) 81 MG EC tabletIndication s:Coronary artery disease involving [place] coronary artery of [place] heart, unspecified whether angina present TAKE 1 TABLET BY MOUTH EVERYDAY AT NOON 90 tablet 1 Active clopidogrel (Plavix) 75 MG tabletIndication s:Coronary artery disease involving [place] coronary artery of [place] heart, unspecified whether angina present TAKE 1 TABLET BY MOUTH EVERYDAY AT NOON 90 tablet 1 025 Active levothyroxine (Synthroid, Levoxyl) 25 MCG tabletIndication s:Hypothyroidism , unspecified type TAKE 1 TABLET BY MOUTH EVERY MORNING BEFORE BREAKFAST 90 tablet 1 Active metoprolol succinate XL (Toprol-XL) 50 MG 24 hr tabletIndication s:Coronary artery disease involving [place] coronary artery of [place] heart, unspecified whether angina present TAKE 1 TABLET BY MOUTH EVERYDAY AT NOON 90 tablet 1 025 Active cholecalciferol (D3-1000) 25 MCG (1000 UT) capsuleIndicatio ns:Vitamin D deficiency TAKE 1 CAPSULE BY MOUTH EVERYDAY AT NOON 90 capsule 1 025 Active Tirzepatide (Mounjaro) 5 MG/0.5ML solution auto-injectorInd ications:Type 2 diabetes mellitus with hyperglycemia, without long-term current use of insulin ([facility]) Inject 5 mg under the skin 1 (one) time per week. 2 mL 2 07/07/20 25 3:46 PM EST 025 Active nitroglycerin (Nitrostat) 0.4 MG SL tabletIndication s:Exercise-induc ed angina (CMS/[facility]) Place 1 tablet (0.4 mg) under the tongue every 5 (five) minutes if needed for chest pain. 90 tablet 06/09/20 25 10:21 AM EST 025 Active cyclobenzaprine (Flexeril) 5 MG tabletIndication s:Muscle spasm TAKE 1 TABLET BY MOUTH THREE TIMES DAILY 30 tablet 2 07/07/20 25 3:46 PM EST 025 Active gabapentin (Neurontin) 400 MG capsuleIndicatio ns:Diabetic polyneuropathy associated with type 2 diabetes mellitus ([facility]) Take 1 capsule by mouth at noon, evening, and bedtime 90 capsule 1 06/28/20 25 4:05 PM EST 025 Active nitroglycerin (Nitrostat) 0.4 MG SL tablet 023 2024 Discontinued(R eorder (will not trigger notification to Pharmacy)) gabapentin (Neurontin) 400 MG capsuleIndicatio ns:Diabetic polyneuropathy associated with type 2 diabetes mellitus ([facility]) TAKE 1 CAPSULE BY MOUTH AT NOON, EVENING, AND BEDTIME 90 capsule 1 025 2024 Discontinued(R eorder (will not trigger notification to Pharmacy)) cyclobenzaprine (Flexeril) 5 MG tabletIndication s:Muscle spasm TAKE 1 TABLET BY MOUTH THREE TIMES DAILY 30 tablet 2 025 2024 Discontinued(R eorder (will not trigger notification to Pharmacy)) Mounjaro 2.5 MG/0.5ML solution auto-injectorInd ications:Type 2 diabetes mellitus with hyperglycemia, without long-term current use of insulin ([facility]) INJECT ONE PEN (=2.5MG) SUBCUTANEOUSLY ONCE A WEEK DIRECTED 2 mL 2 025 2024 Discontinued Active Problems Problem Noted [...] of colon 11/20/2017 Hyperuricemia 11/20/2017 CAD in [place] artery 11/20/2017 Benign prostatic hyperplasia with nocturia [...] will continue with same medications, I extensibly children counselor him about diabetic diet and let him know his glucose also will likely go down after back injections wears out - Encounters Date Type Department Care Team Description 07/06/2025 Patient Outreach [facility] [address] [place] [address] Audrey Smith MD Care Management (C3CM- F/U call) 06/23/2025 Refill [facility] [address] [place] [address] Audrey Smith MD Diabetic polyneuropathy associated with type 2 diabetes mellitus (HCC) 06/15/2025 Refill [facility] [address] [place] [address] Audrey Smith MD Diabetic polyneuropathy associated with type 2 diabetes mellitus (HCC) 06/15/2025 Refill [facility] [address] [place] [address] Audrey Smith MD Diabetic polyneuropathy associated with type 2 diabetes mellitus (HCC) 06/09/2025 9:00 AM EST Office Visit [facility] [address] [place] [address] Audrey Smith MD Diabetic polyneuropathy associated with type 2 diabetes mellitus (HCC) (Primary Dx); Type 2 diabetes mellitus with hyperglycemia, without long-term current use of insulin (HCC); Essential hypertension; Exercise-induced angina (CMS/HCC); Muscle spasm; Encounter for immunization 06/09/2025 Travel 06/02/2025 Patient Outreach [facility] [address] [place] [phone] Audrey Smith MD Pre-visit Planning ([facility] screening completed on 12/06/2024) 05/31/2025 Refill [facility] [address] [place] [address] Audrey Smith MD Type 2 diabetes mellitus with hyperglycemia, without long-term current use of insulin (HCC) 05/15/2025 Refill [facility] [address] [place], [place] [phone] Audrey Smith MD Coronary artery disease involving [place] coronary artery of [place] heart, unspecified whether angina present; Hypothyroidism, unspecified type; Vitamin D deficiency 05/10/2025 1:00 PM EDT Immunization [facility] [address] [place] [address] Encounter for immunization 05/10/2025 Travel 05/05/2025 Orders Only [facility] [address] [place] [phone] Audrey Smith MD Type 2 diabetes mellitus with hyperglycemia, without long-term current use of insulin (HCC) (Primary Dx) 05/05/2025 Patient Outreach [facility] [address] [place] [address] Audrey Smith MD Care Management (P0SM-bpiakr up call # [phone]) 05/04/2025 Refill [facility] [address] [place] [address] Audrey Smith MD Type 2 diabetes mellitus with hyperglycemia, without long-term current use of insulin (HCC); Muscle spasm 05/04/2025 Refill [facility] [address] [place] [address] Audrey Smith MD Muscle spasm 04/29/2025 Orders Only [facility] External Provider, [facility] 04/28/2025 Orders Only GENERIC EXTERNAL DATA DEPARTMENT Provider, Generic External Data 04/20/2025 Refill [facility] [address] [place], [place] [phone] Audrey Smith MD Diabetic polyneuropathy associated with type 2 diabetes mellitus (HCC) from Last 3 Months Immunizations Immunization Administration Dates Next Due Hep A, Adult 05/10/2025,11/03/2024 Hep B, adult 12/07/2020,01/25/2019,12/25/2018 Influenza injectable quadriv alent IIV4 with preservative 05/24/2019,04/07/2018 Influenza injectable quadriv alent preservative free 05/16/2023,04/18/2022,04/13/2021,2019 Influenza, seasonal, injecta ble, preservative free 06/09/2025,05/21/2024 Pfizer Covid-19 Vaccine 12+ 05/21/2024, Pfizer Covid-19 [...] Sign Reading Time Taken Comments Blood Pressure 120/78 06/09/2025 9:02 AM EST Pulse 80 06/09/2025 9:02 AM EST Temperature 36.1 C (96.9 F) 06/09/2025 9:02 AM EST Respiratory Rate 15 06/09/2025 9:02 AM EST Oxygen Saturation 99% 06/09/2025 9:02 AM EST Inhaled Oxygen Concentration - - Weight 76.7 kg (169 lb 3.2 oz) 06/09/2025 9:02 A M EST Height 167.6 cm (5' 6 ) 06/09/2025 9:02 AM EST Body Mass Index 27.31 06/09/2025 9:02 AM EST Plan of Treatment Upcoming Encounters Date Type Department Care Team (Late st Contact Info) Description 09/13/2025 9:15 AM EST Office Visit [facility] [address] [place] [phone] Audrey Smith MD [address] [place] [phone] 12/23/2025 10:00 AM EDT Medication Management [facility] [address] [place] [phone] Janice Candelaria, PharmD [address] [place] [phone] Health Maintenance Due Date Last Done Comments CT Colonography 1970 FIT DNA/Cologuard 1970 FIT 1970 FOBT 1970 Sigmoidoscopy 1970 Diabetes: Foot Exam 11/07/1979 Hepatitis C Screening 11/07/1987 RSV Patients and Patients Aged 60 years or older (1 - Risk 50-74 years 1-dose series) 11/07/2019 COVID-19 Vaccine ( season) 2025 05/21/2024, 08/01/2023, 07/10/2022, Additional history exists Lipid Panel 08/25/2025 08/25/2024, 05/21, 12/03/2023, Additional history exists Depression Monitoring 09/17/2025 03/17/2025, 025 SDOH Screening 12/06/2025 12/06/2024 Diabetes: Hemoglobin A1C 12/07/2025 025, 03/17/2025, 11/19/2024, Additional history exists Alcohol/Substance Use Screening 03/17/2026 03/17/2025 Diabetes: Urine Protein Screening 03/17/2026 03/17/2025, 06/02/2024, 12/26/2022, Additional history exists Disability Screening 03/17/2026 03/17/2025 Tobacco Screening 06/09/2026 06/09/2025 Eye Exam 01/11/2027 01/11/2025, 12/20, 01/11/2025, Additional history exists Colonoscopy 08/30/2027 08/30/2024, 08/2020, 05/22/2021 Colorectal Cancer Screening 08/30/2027 DTaP/Tdap/Td Vaccines (2 - Td or Tdap) 03/16/2028 03/16/2018 HIV Screening Completed 10/01/2019 Hepatitis B Vaccines Completed 12/07/2020, 01/25/2019, 12/25/2018 Zoster Vaccines Completed 08/09/2021, 05/30/2021 Pneumococcal Vaccine: 50+ Years Completed 10/22/2023 Hepatitis A Vaccines Completed 05/10/2025, 11/04/19 25 Influenza Vaccine Completed 06/09/2025, , 05/16/2023, Additional history exists HIB Vaccines Aged Out [...] on patient's age to complete this topic Goals Goal Patient Goal Type Associated Problems [...] neuropathy Care Plan Patient has diabetic neuropathy Trinh Gonsalez Weekly blood pressure task Care Plan Weekly [...] Care Plan Weekly blood pressure task No OvalleCici chavezfer, PharmD Patient has chronic kidney disease Care Plan Patient has chronic kidney disease No OvalleMaria EstherAmanda, PharmD Patient has chronic kidney disease Care Plan Patient has chronic kidney disease No OvalleMaria EstherAmanda, PharmD Patient has chronic kidney disease Care Plan Patient has chronic kidney disease No OvalleMaria EstherAmanda, PharmD Patient has diabetic neuropathy Care Plan Patient has diabetic neuropathy No OvalleMaria EstherAmanda, PharmD Patient has diabetic neuropathy Care Plan Patient has diabetic neuropathy No OvalleCiciAmanda, PharmD Patient has diabetic neuropathy Care Plan Patient has diabetic neuropathy No OvalleCici chavezfer, PharmD Weekly blood pressure task Care Plan [...] has diabetic neuropathy No Rao Mcdowell RN Procedures Procedure Name Priority Date/Time Associated Diagnosis Comments POCT GLYCATED HEMOGLOBIN, TOTAL Routine 06/09/2025 9:04 AM EST Type 2 diabetes mellitus with hyperglycemia, without long-term current use of insulin ([facility]) POCT GLUCOSE Routine 06/09/2025 9:03 AM EST Type 2 diabetes mellitus with hyperglycemia, without long-term current use of insulin ([facility]) STRESS TEST WITH MYOCARDIAL PERFUSION Routine 04/29/2025 9:28 AM EDT TESTOSTERONE, TOTAL, MALES (ADULT), IA Routine 04/28/2025 8:49 AM EDT ALBUMIN, RANDOM URINE W/CREATININE Routine 03/17/2025 9:45 AM EDT Type 2 diabetes mellitus with hyperglycemia, without long-term current use of insulin ([facility]) LIPID PANEL, STANDARD Routine 08/25/2024 7:10 AM EST HM COLONOSCOPY Routine 05/22/2021 ZZZ HISTORICAL HIV AB/AG Routine 10/01/2019 10:28 AM EDT from Last 3 Months or Most Recently Relevant to Health Maintenance Results * (ABNORMAL) POCT Hgb A1c (06/09/2025 9:04 AM EST) Hemoglobin A1C 6.5(A) 4.0 - 5.7 % QC Media Lot # [id number] Lot# Expiration Date Blood 06/09/2025 9:04 AM EST Audrey Holman MD POINT OF CARE TEST EN TER/EDIT ORDERABLES Final Result * POCT Glucose (06/09/2025 9:03 AM EST) Glucose Blood, POC 153 60 - 200 mg/dL QC Media Lot # [id number] Lot# Expiration Date Blood Capillary blood specimen / Unknown 06/09/2025 9:03 AM EST Audrey Holman MD POINT OF CARE TEST EN TER/EDIT ORDERABLES Final Result * Stress test with myocardial perfusion (04/29/2025 9:28 AM EDT) 04/29/2025 9:28 AM EDT Narrative [facility] - 05/05/2025 4:21 PM EDT [address] [address] Nuclear Medicine Report Signed Patient: Owen Montano MR#: [id number] : 1970 Acct:[id number] Age/Sex: 54 / M ADM Date: 04/29/25 [facility] Att[facility]: Bob Driscoll MD Ordering Physician: Bob Driscoll MD Date of Service: 04/29/25 Procedure(s): NM cardiolite stress test Accession Number(s): [id number] cc: Audrey Smith MD; Bob Driscoll MD Reason for Exam: R07.2 - Precordial painlexiscan stress Lexiscan Myocardial perfusion study Indication: Chest pain Technique: The patient was brought in for a Lexiscan perfusion study on 04/29/2025 and was injected 0.4 mg of Lexiscan intravenously. Within a minute of this injection 25 mCi of sestamibi was given intravenously. Images were obtained using the SPECT gamma camera interlaced with the gating device. Images were obtained in supine position. Resting perfusion study was performed on 05/04/2025. Patient was administered 25 mCi of sestamibi intravenously at rest. Images were then obtained in supine position. Total DLP 66 mGy-cm. Images were processed with the software and compared side to side in short axis, horizontal long axis and vertical long axis views. Findings: Raw aquisition reviewed. The stress perfusion study showed no significant perfusion abnormality. Both uncorrected as well as CT attenuation corrected images were reviewed. The gated study shows normal LV systolic function with calculated LVEF of 52%. LV cavity is normal in size. The gated study shows normal wall thickening and contraction of segments. Resting study shows no significant perfusion abnormality. Gating at rest reveals normal wall motion with ejection fraction at 56%. The findings are consistent with no clear reversible or fixed perfusion abnormality. NM/NM cardiolite stress test Impression: 1. Myocardial perfusion imaging study shows normal myocardial perfusion. 2. Gated LVEF is 52% during stress and 56% during rest. 3. Transient ischemic dilatation not present. EKG component of the test reported separately. Electronically signed by: Bob Driscoll MD 05/05/2025 04:19 PM EDT RP Dictated By: Bob Driscoll MD Signed By: <Electronically signed by Bob Driscoll MD in OV> 05/05/25 1619 DD/ 0928 TD/TT: 05/04/25 1330 Program Engineer: Procedure Note Donotuseinterpreter, Image - 05/05/[address] [address] Nuclear Medicine Report Signed Patient: Owen MontanoMR#: [id number] : 1970Acct:[id number] Age/Sex: 54 / MADM Date: 04/29/25 Loc: [facility] Attending Dr: Bob Driscoll MD Ordering Physician: Bob Driscoll MD Date of Service: 04/29/25 Procedure(s): NM cardiolite stress test Accession Number(s): [id number] cc: Audrey Smith MD; Bob Driscoll MD Reason for Exam: R07.2 - Precordial painlexiscan stress Lexiscan Myocardial perfusion study Indication: Chest pain Technique: The patient was brought in for a Lexiscan perfusion study on 04/29/2025 and was injected 0.4 mg of Lexiscan intravenously. Within a minute of this injection 25 mCi of sestamibi was given intravenously. Images were obtained using the SPECT gamma camera interlaced with the gating device. Images were obtained in supine position. Resting perfusion study was performed on 05/04/2025. Patient was administered 25 mCi of sestamibi intravenously at rest. Images were then obtained in supine position. Total DLP 66 mGy-cm. Images were processed with the software and compared side to side in short axis, horizontal long axis and vertical long axis views. Findings: Raw aquisition reviewed. The stress perfusion study showed no significant perfusion abnormality. Both uncorrected as well as CT attenuation corrected images were reviewed. The gated study shows normal LV systolic function with calculated LVEF of 52%. LV cavity is normal in size. The gated study shows normal wall thickening and contraction of segments. Resting study shows no significant perfusion abnormality. Gating at rest reveals normal wall motion with ejection fraction at 56%. The findings are consistent with no clear reversible or fixed perfusion abnormality. NM/NM cardiolite stress test Impression: 1. Myocardial perfusion imaging study shows normal myocardial perfusion. 2. Gated LVEF is 52% during stress and 56% during rest. 3. Transient ischemic dilatation not present. EKG component of the test reported separately. Electronically signed by: Bob Driscoll MD 05/05/2025 04:19 PM EDT Dictated By: Bob Driscoll MD Signed By: <Electronically signed by Bob Driscoll MD inOV> 05/05/25 1619 DD/ 0928 TD/TT: 05/04/25 1330 Program Engineer: us [facility] External Provider CV STRE SS PROCEDURES Final Result [facility] [address] [place], [place] [phone] * Testosterone, Total, males (Adult), IA (04/28/2025 8:49 AM EDT) Testosterone, Total 645 250 - 1100 ng/dL [facility] Comment:For additional infor gunnar, please refer [email or web address](This link is being provided for informational/educational purposes only.)This test was developed and its analytical performancecharacteristics have been determined by [employer] [place], [place]. It hasnot been cleared or approved by the U.S. Food and DrugAdministration. This assay has been validated pursuantto the CLIA regulations and is used for clinicalpurposes.THIS TEST WAS PERFORMED AT:[employer] [place] [address]AAABBSCKYRA FU MD,PHD 04/28/2025 8:49 AM EDT 04/28/2025 8:49 AM EDT us Generic External Data Provider LAB BLOOD ORDERAB LES Final Result Performing Organization Address [facility]/ZIP Co de Phone Number [facility] [address] [place] [address] [phone] * Albumin, Random Urine W/Creatinine (03/17/2025 9:45 AM EDT) Creatinine, Urine 46.49 mg/dL [facility] Microalbumin Urine <5.0 mg/L [facility] Microalbum Creatinine Ratio Ur TNP <30 ug/mg cr [facility] Comment:Unable to calculate albumin/creatinine ratio due to lowmicroalbumin or creatinine result. Urine (Urine, Random) 03/17/2025 9:45 AM EDT 03/17/2025 11:07 AM EDT us Audrey Holman MD LAB URINE ORDERABLES Final Result Performing Organization Address [facility]/ZIP Co de Phone Number [facility] [address] [place] [phone] * (ABNORMAL) Lipid Panel, Standard (08/25/2024 7:10 AM EST) Triglycerides 181(H) <150 mg/dL [facility] Comment:Desirable Triglyceri de: less than 150 mg/dLBorderline High Triglyceride 150-199 mg/dLHigh Triglyceride: 200-499 mg/dLVery High Triglyceride: greater than or equal to 5OO mg/dL Cholesterol 142 <200 mg/dL [facility] Comment:Desirable Cholestero l: less than 200 mg/dLBorderline High Cholesterol: 200-239 mg/dLHigh Cholesterol: greater than 239 mg/dL LDL Cholesterol Calculated 68 <100 mg/dL [facility] Comment:Desirable LDL: less than 100 mg/dLNear Optimal/Above Optimal LDL: 110- 129 mg/dLBorderline High LDL: 130-159 mg/dLHigh LDL: 160-189 mg/dLVery High LDL: greater than or equal to 190 mg/dL HDL Cholesterol 38(L) >40 mg/dL [facility] Comment:Desirable HDL: great er than 40 mg/dL Note: This HDL assay may give artificially low results in patients with liver disease. 08/25/2024 7:10 AM EST 08/25/2024 7:10 AM EST us Generic External Data Provider LAB BLOOD ORDERAB LES Final Result [facility] [address] [place] [phone] * Hm Colonoscopy (05/22/2021) Historical Provider [...] of detection of this assay. The [employer] [facility] Maintenance Assistant HIV Ag/Ab Combo assay result and supplemental assay results should be interpreted in conjunction with the patient's clinical presentation, history and other laboratory results. If the results are inconsistent with clinical evidence, additional testing is suggested to confirm the result. 10/01/2019 10:2 8 AM EDT us Audrey Holman MD HISTORICAL/NON ORDERA BLE LABS Final Result [facility] [place] [address], from Last 3 Months or Most Recently Relevant to Health Maintenance Additional Health Concerns Active Problems Noted Date [...] neuropathy 07/06/2025 Patient has diabetic neuropathy 07/06/2025 [facility] Care Teams Wire Temperer Relationship Specialty Start Date End Date Audrey Smith MD [address] [place] [address] PCP - General Family Medicine 11/20/17 Rao Mcdowell, VANE [address] [place], [id number] Registered Nurse Family Medicine 11/29/24 Piedad Tolliver 11/29/24
--- NOTE | 2025-07-08 09:00 | A.OFFVIS_ITS ---
Vital Signs 07/08/25 09:15 Height 5 ft 6 in Weight 162 lb 4.163 oz BMI 26.2 BP 122/94 H Blood Pressure Location Rt brachial Position Sitting Pulse 83 Intake Visit Reasons: Follow up 6 months Intake Note: Owen presents in 6 months follow up GERD. CC: Patient reports that he has been stable with medications. Denies having any new GI symptoms today. Chief I Dispatcher Required: Yes Accompanied by: Self / Same As Patient Allergies No Known Allergies (No Known Allergies*) Allergy (Verified 07/08/25 09:16) HPI HPI Follow up 6 months: Details: Assessment & Plan (1) COLON (nonalcoholic steatohepatitis): Comment: 2019: AST/ALT 40/108 with a normal alk-phos, negative autoimmune workup, negative hepatitis a B and C, ferritin is normal at 130, GGT not elevated at 20, hCG tumor marker < 2 Alpha fetoprotein quite elevated at greater than 12 but liver functions are normal the autoimmune workup is normal he is negative for hepatitis B and C and his ultrasound does not show any masses. It is possible that this values being driven out by his injection cholesterol medication or even that has something to do with recently had TURP, MRI 02/2019 neg 07/23/2019?ALPHA-FETOPROTEIN 12.8??(ng/mL) 03/18/2019 ?ALPHA-FETOPROTEIN 13.0?AA 11/19/24 Alpha Fetoprotein 16.6 H * CURRENT LABS. 11/19/24 13:16 Estimated GFR > 60 Hemoglobin A1c % 7.7 H Total Bilirubin 0.9 AST 28 ALT 42 H Alkaline Phosphatase 99 Alpha Fetoprotein 16.6 H Ultrasound the abdomen 08/12/22? FINDINGS: PANCREAS: Obscured by bowel gas. LIVER: Normal. The liver is normal in size. The liver contour is normal. Parenchymal echogenicity is normal. No focal hepatic lesion. There is no intrahepatic biliary duct dilatation seen. GALLBLADDER: Normal. The gallbladder is physiologically distended without evidence of stones, sludge, polyps, wall thickening or pericholecystic fluid. COMMON BILE DUCT: Normal in caliber measuring 0.3 cm in diameter. RIGHT KIDNEY: Punctate echogenic foci without twinkle or shadowing may reflect a vascular reflector's. No hydronephrosis. No renal calculi or focal parenchymal lesions. The kidney measures 11.2 cm in maximum dimension. FREE FLUID: None. US/US abdomen limited IMPRESSION: ? Unremarkable sonographic appearance of the liver. ? Pancreas is obscured by bowel gas limiting evaluation. Code(s): K75.81 - Nonalcoholic steatohepatitis (COLON) Category: Medical (2) GERD (gastroesophageal reflux disease): Code(s): K21.9 - Gastro-esophageal reflux disease without esophagitis Category: Medical (3) Irritable bowel syndrome with diarrhea: Code(s): K58.0 - Irritable bowel syndrome with diarrhea Category: Medical (4) Impaired swallowing associated with throat pain: Code(s): R13.10 - Dysphagia, unspecified; R07.0 - Pain in throat Category: Medical Plan [place] #[id number] His current medications consist of imipramine 10 mg (he was too sleepy on 20 mg, occasional dicyclomine and Imodium for breakthrough diarrhea, occasional promethazine for nausea, Zenpep, famotidine, hemorrhoid cream, and Mila that I prescribed to see if it would help with his throat discomfort. He says he is taking his medicines and is feeling much better. His stomach feels well, but he still has a globus sensation/feeling of discomfort in the are of the left just anterior to the SCL but deep. I think this would warrant an ENT evaluation. I place a referral for him. He says his diabetes control is so, so. His A1C reflects this at 7.7%, and this may be what is driving his transaminitis and his elevaeted AFP. His PCP manages his diabetes, Audrey Holman and I will text her to see if endocrinology referral is something to be considered since it very directly impacts his liver louisa. ROV 6 mos. Orders: Referrals Ear/Nose/Throat Referral R07.0 - Pain in throat, R13.10 - Dysphagia, unspecified Medications: Refilled dicyclomine 20 mg PO QID PRN 120 tabs 3RF for cramps K22.4 - Dyskinesia of esophagus famotidine 40 mg PO BID 60 tabs 6RF imipramine HCl 10 mg PO BEDTIME 30 tabs 6RF K58.0 - Irritable bowel syndrome with diarrhea pebweb-fjcqkira-oeibcwi 5,000-17,000- 24,000 unit (Zenpep) 1 cap PO QID 120 caps 6RF K58.0 - Irritable bowel syndrome with diarrhea promethazine 25 mg PO Q12H PRN 60 tabs 1RF for nausea/vomiting loperamide 2 mg PO BID PRN 60 caps 6RF for diarrhea TODAY'S VISIT [place] #declines His current medications consist of imipramine 10 mg (he was too sleepy on 20 mg, occasional dicyclomine and Imodium for breakthrough diarrhea, occasional promethazine for nausea, Zenpep, famotidine, hemorrhoid cream, and Mila that I prescribed to see if it would help with his throat discomfort. [facility] Medical History (Updated 07/08/25 @ 09:05 by JORDAN Corey) COVID-19 Hypogonadism Nocturnal hypoxemia SARTHAK (obstructive sleep apnea) Hypogonadism in male On beta catherine at home Hypothyroid IBS (irritable bowel syndrome) BPH (benign prostatic hyperplasia) Anxiety Allergic rhinitis COLON (nonalcoholic steatohepatitis) Elevated AFP Decreased libido Type 2 diabetes mellitus with unspecified complications Other and unspecified hyperlipidemia Essential hypertension Atherosclerotic cardiovascular disease Hypogonadism in male Surgical History (Updated 07/08/25 @ 09:03 by JORDAN Corey) S/P placement of nerve stimulator History of esophagogastroduodenoscopy (EGD) Hx of colonoscopy History of cardiac cath History of cardiac cath Family History Father Cardiac disease Mother Cardiac disease Social History Are you a primary medicare sales executive to a significant other at home: No Do you presently have visiting nurse or other home services: No Alcohol intake: former Patient Tobacco Use Status: Former Tobacco user Tobacco use type: Cigarette Review of Systems Eyes Details: glasses ENT Reports Normal hearing present Neuro Reports Normal hearing present and Denies Abnormal speech present Physical Exam Vital Signs: Last Vital Signs Pulse 83 07/08/25 09:15 BP 122/94 H 07/08/25 09:15 BMI result Body Mass Index 26.2 Const General: cooperative, no acute distress, well developed and well groomed Nutritional Appearance: average body habitus and well nourished Orientation/consciousness: oriented to person, oriented to place and oriented to time Limitations: language barrier and ambulation with cane HEENT Head: Yes normocephalic and Yes atraumatic Eyes General: appearance normal, both eyes and all related structures Pupils: Equal, round and reactive pupils present Neck Neck: Yes normal visual inspection and Yes no lymphadenopathy Thyroid: Thyroid normal Resp Effort & Inspection: normal respiratory effort and able to speak in complete sentences Auscultation: clear to auscultation bilaterally Cardio Rate: regular rate Rhythm: regular rhythm Heart sounds: Normal, physiologic split S2 sound present Peripheral pulses: radial pulses present and posterior tibial pulses present GI Inspection: No distended and No Abdominal panniculus present Palpation (GI): Soft to palpation, nontender, no guarding, not rigid and No hepatosplenomegaly present Percussion: Yes normal to percussion Auscultation: normal bowel sounds Rectal Exam - Male: Yes deferred Skin General skin exam: no rashes or lesions noted, turgor normal, skin not dry, no jaundice, No spider nevi and no striae Rashes: no rashes Nails: normal Neuro General: oriented to person, oriented to place and oriented to time Cranial nerves: Yes Equal, round and reactive pupils present and Yes Normal hearing present Speech: No Abnormal speech present Extrem General: Yes normal to inspection, No clubbing, No cyanosis and No edema Psych Appearance: grossly normal and well kempt Mental Status: mental status grossly normal Speech and movement: Normal speech and movement present Affect: normal affect Attitude: cooperative Thought process: Normal thought process present and not confabulating Thought content: Normal thought content present Insight: Limited insight present (Psych) Judgement: Limited judgement present (Psych) Assessment & Plan Assessment & Plan (1) GERD (gastroesophageal reflux disease): Code(s): K21.9 - Gastro-esophageal reflux disease without esophagitis Category: Medical (2) Esophageal dysmotility: Comment: 2019 EGD more esophageal dysmotility than any other problem driving was then problems with dysphagia. Patient is on dicyclomine for this Code(s): K22.4 - Dyskinesia of esophagus Category: Medical (3) Irritable bowel syndrome with diarrhea: Code(s): K58.0 - Irritable bowel syndrome with diarrhea Category: Medical (4) COLON (nonalcoholic steatohepatitis): Comment: 2019: AST/ALT 40/108 with a normal alk-phos, negative autoimmune workup, negative hepatitis a B and C, ferritin is normal at 130, GGT not elevated at 20, hCG tumor marker < 2 Alpha fetoprotein quite elevated at greater than 12 but liver functions are normal the autoimmune workup is normal he is negative for hepatitis B and C and his ultrasound does not show any masses. It is possible that this values being driven out by his injection cholesterol medication or even that has something to do with recently had TURP, MRI 02/2019 neg 07/23/2019?ALPHA-FETOPROTEIN 12.8??(ng/mL) 03/18/2019 ?ALPHA-FETOPROTEIN 13.0?AA 11/19/24 Alpha Fetoprotein 16.6 H * CURRENT LABS. 11/19/24 13:16 Estimated GFR > 60 Hemoglobin A1c % 7.7 H Total Bilirubin 0.9 AST 28 ALT 42 H Alkaline Phosphatase 99 Alpha Fetoprotein 16.6 H Ultrasound the abdomen 08/12/22? FINDINGS: PANCREAS: Obscured by bowel gas. LIVER: Normal. The liver is normal in size. The liver contour is normal. Parenchymal echogenicity is normal. No focal hepatic lesion. There is no intrahepatic biliary duct dilatation seen. GALLBLADDER: Normal. The gallbladder is physiologically distended without evidence of stones, sludge, polyps, wall thickening or pericholecystic fluid. COMMON BILE DUCT: Normal in caliber measuring 0.3 cm in diameter. RIGHT KIDNEY: Punctate echogenic foci without twinkle or shadowing may reflect a vascular reflector's. No hydronephrosis. No renal calculi or focal parenchymal lesions. The kidney measures 11.2 cm in maximum dimension. FREE FLUID: None. US/US abdomen limited IMPRESSION: ? Unremarkable sonographic appearance of the liver. ? Pancreas is obscured by bowel gas limiting evaluation. Code(s): K75.81 - Nonalcoholic steatohepatitis (COLON) Category: Medical (5) Elevated AFP: Comment: No elevatin of HCG tumor marker, and no liver masses, Had referred him to see a physician and he was seen by Dr. Leyva who recommended only monitoring the AFP 07/23/2019?11:15:00 Result Recd:?07/29/2019?08:10:04Report:?07/23/2019 ?11:15:00 Requesting Physician:?Mary Kay AvalosOrdering Physician:?Mary Kay AvalosCopied: Bailey ALPHA-FETOPROTEIN,TUMOR MARKER NAMEVALUEREFERENCE RANGE FALPHA-FETOPROTEIN,TUMOR DAOEOF78.8??(ng/mL) * 03/18/2019 ALPHA-FETOPROTEIN,TUMOR MARKER NAMEVALUEREFERENCE RANGEFALPHA-FETOPROTEIN,TUMOR MARKER 13.0?AA * 07/31/22 Alpha Fetoprotein 14.5 H Code(s): R77.2 - Abnormality of alphafetoprotein Category: Medical (6) Allergic rhinitis: Comment: He has intermittent nasal congestion with postnasal discharge and this is due. To allergic rhinitis Code(s): J30.9 - Allergic rhinitis, unspecified Category: Medical Plan [place] #Shelia Live His current medications consist of imipramine 10 mg (he was too sleepy on 20 mg, occasional dicyclomine and Imodium for breakthrough diarrhea, occasional promethazine for nausea, Zenpep, famotidine, hemorrhoid cream, and Mila that I prescribed to see if it would help with his throat discomfort. Subjective Patient here for routine follow-up and medication review. Reports doing well on current medicines. We reviewed the history of a chronically elevated alpha- fetoprotein; I explained potential etiologies including benign/genetic elevation versus early marker of hepatocellular carcinoma and the rationale for periodic imaging. Patient does not drink alcohol. Patient asked about liver risks from medications; I advised none of the current agents are particularly hepatotoxic. History notable for prior frequent diarrhea that was controlled with Creon; since starting Mounjaro, stools are more constipated and Creon is no longer needed. ENT recently started a proton pump inhibitor, which did not help and caused epigastric discomfort; patient will stop it and continue famotidine. Patient confirms ongoing use of allergy medication (Mila) and hemorrhoid cream. We discussed that results could be normal variants and that we will continue surveillance. Agrees with plan for labs today, CT imaging to be scheduled, and follow-up in six months. Objective Assessment & Plan Chronic elevated alpha-fetoprotein with liver surveillance: Longstanding mild elevation discussed; differential includes benign/genetic elevation versus early hepatocellular carcinoma. No alcohol use. Ongoing vigilance with periodic imaging and labs. - Order blood work today to reassess liver studies and tumor marker as per usual surveillance - Order CT scan of the liver this cycle instead of ultrasound for a more detailed assessment; our office will arrange and call with scheduling - Counseling provided on variable significance of AFP; continue surveillance approach - Avoid alcohol - Follow up in 6 months, sooner if abnormal results or symptoms Medication reconciliation and adjustments: Updated medication list for accuracy and to avoid unnecessary refills. - Start/continue: Mounjaro (tirzepatide) as prescribed by outside clinician - Continue: famotidine; Mila (refilled); hemorrhoid cream - Discontinue: Creon (no longer needed); metformin (held per outside plan); glipizide (stopped); proton pump inhibitor from ENT (ineffective, caused epigastric discomfort) - Confirmed no current medications with significant hepatotoxicity concerns Gastrointestinal symptoms (history of diarrhea; current constipation on GLP-1; GERD/epigastric discomfort with PPI): Diarrhea previously controlled with Creon has resolved; now mild constipation since starting Mounjaro. PPI caused epigastric pain; famotidine preferred given lower risk of diarrhea. - Stop PPI; continue famotidine for reflux control - No Creon needed at this time - Monitor bowel habits while on Mounjaro and report persistent issues Allergic rhinitis: Stable on antihistamine. - Continue Mila; refilled today Follow-up: 6 months, or earlier based on lab/imaging results. Orders: Orders Comprehensive Met. Panel Today K75.81 - Nonalcoholic steatohepatitis (COLON), R77.2 - Abnormality of alphafetoprotein CT abdomen w IV con Today R77.2 - Abnormality of alphafetoprotein Alpha Fetoprotein Today K75.81 - Nonalcoholic steatohepatitis (COLON), R77.2 - Abnormality of alphafetoprotein Medications: Refilled dicyclomine 20 mg PO QID PRN 120 tabs 6RF for cramps K22.4 - Dyskinesia of esophagus hydrocortisone 2.5% (Procto-Med HC) 1 ea ND BID PRN 28 grams 6RF for pain K64.9 - Unspecified hemorrhoids famotidine 40 mg PO BID 60 tabs 6RF imipramine HCl 10 mg PO BEDTIME 30 tabs 6RF K58.0 - Irritable bowel syndrome with diarrhea fexofenadine (Allergy Relief (fexofenadine)) 180 mg PO DAILY 30 ea 6RF Discontinued locvlu-jrgovfct-kfkyuiv (pork) 5,000-17,000- 24,000 unit (Zenpep) Discontinued Reason: Doctor's Order 1 cap PO QID 120 caps 6RF K58.0 - Irritable bowel syndrome with diarrhea Coding Level of Care Code Est Pt Level 4 (97510) Diagnoses GERD (gastroesophageal reflux disease) K21.9 Esophageal dysmotility K22.4 Irritable bowel syndrome with diarrhea K58.0 COLON (nonalcoholic steatohepatitis) K75.81 Elevated AFP R77.2 Allergic rhinitis J30.9 Time Spent (min) 36
[2025-07-08 09:15] VITALS: BP 122/94; PULSE 83; BMI 26.2
== END 2025-07-08 09:48 | disposition home or self-care (01) ==
LOC: HO.HGI 08:31
PROVIDERS: PCP Internal Medicine; Visit Provider Nurse Practitioner
DX: K21.9 Gastro-esophageal reflux disease without esophagitis (principal); K22.4 Dyskinesia of esophagus; K58.0 Irritable bowel syndrome with diarrhea; K75.81 Nonalcoholic steatohepatitis (NASH); R77.2 Abnormality of alphafetoprotein; J30.9 Allergic rhinitis, unspecified
CPT/HCPCS: 99214